=== PATIENT | male | born 1955 | race Caucasian/White ===

== ENCOUNTER 2016-05-26 04:13 | Inpatient (IN) | payer OTHER ==
[~2016-05-26] VITALS: Ht 170.2 cm; Wt 73.3 kg
[2016-05-26 07:06] VITALS: BP 133/83; PULSE 78; RESP 20
[2016-05-26 07:07] VITALS: Ht 170.2 cm; Wt 73.3 kg
[2016-05-26] MEDS ORDERED: ACETAMINOPHEN 650 MG SUPP PR PRN (08:00)
[2016-05-26] MEDS ORDERED: morphine 2 MG INJ IV PRN (08:00)
[2016-05-26 08:15] VITALS: BP 146/84; RESP 18
[2016-05-26] MEDS ORDERED: AMO500 PO (09:24)
[2016-05-26] MEDS ORDERED: NITR-58 PO (09:24)
[2016-05-26] MEDS ORDERED: CLAR500T PO (09:24)
[2016-05-26] MEDS ORDERED: OMEP20CA16 PO (09:26)
--- NOTE | 2016-05-26 12:03 | HP ---
DATE OF ADMISSION: 05/26/2016 REASON FOR ADMISSION: Stomach mass, distended stomach, intractable abdominal pain, rule out metasta tic cancer. The patient has been transferred from the [facility] due to insurance capitati on. HISTORY OF PRESENT ILLNESS: This is a 60-year-old male who has no significant past medical history who presented to the emergency room at [facility] for evaluation of epigastric pain, which has been going on for the past 1 week. The patient notes that it was more to be a discomfort that i s associated with nausea and then he starts to have vomiting. The patient has been complaining of n onbloody, nonbilious vomiting for the past 1 week. He stated that every time he gets nauseas it is f ollowed up by vomiting. The patient denies any constipation, diarrhea, fever, chills. He also is n ot sure about any weight loss. He had his last bowel movement approximately 2 days ago. In the beth ency room at [place], he had an EKG done which was a normal sinus rhythm. The patient had an i nitial workup done including the abdominal ultrasound. The patient had ultrasound of the abdomen do ne which shows no kidney stones or gallstones. There was some steatosis with focal fatty sparing in the left lobe. The patient subsequently had a CT abdomen and pelvis with contrast which was suspic ious for possible periduodenal lymphadenopathy. There was some mass measuring at 2.6 x 3.9 cm. Mul tiple small nodules are present adjacent to the duodenal mass in the aortocaval regions. There was also some mass 2.3 x 2.9 cm lying above the bladder which may be present as a possible metastases. There was a distended stomach and the ____ of the duodenum. The patient got transferred to the [facility] for further care. At the time of my evaluation, he is complaining of abdominal pain, nausea, vomiting. REVIEW OF SYSTEMS: Other review of systems has been obtained and is negative except what is mentione d in the history of present illness. PAST MEDICAL HISTORY: None as per the patient. PAST SURGICAL HISTORY: None as per the patient. ALLERGIES: NO KNOWN DRUG ALLERGIES. SOCIAL HISTORY: The patient is . He has never smoked. He does not have any smokeless tobac co history on file. The patient does not drink alcohol, no recreational drug use. PHYSICAL EXAMINATION: VITAL SIGNS: Temperature 36.7, heart rate 100, respiration 19, blood pressure 162/74, saturation 99 % on room air. GENERAL: Awake, alert, in no distress. HEENT: Normal. Oropharynx clear. NECK: Supple, no JVD, no lymphadenopathy. LUNGS: Clear to auscultation. No crackles, no wheezes. HEART: S1, S2, with regular rhythm, no murmur. ABDOMEN: Soft, tender to palpation in the mid epigastric to mid umbilical area. No rebound, no gua rding. Bowel sounds are present. EXTREMITIES: No clubbing, cyanosis, or edema. NEUROLOGICAL: Nonfocal, intact. PSYCHIATRIC: Appropriate affect and mood. LABORATORY DATA/DIAGNOSTIC IMAGING: The patient had a CT abdomen and pelvis with contrast done at [facility] as follows: 1. Distended stomach as well as the second portion of the duodenum, periduodenal lymphadenopathy wi th the largest confluence mass measures 2.6 x 3.9 cm, multiple additional smaller nodes are present adjacent to the duodenal mass in the aortocaval region. 2. A 2.3 x 2.9 cm mass lying above bladder may be represent a drop metastasis. 3. Ultrasound of the abdomen done which shows no kidney stone or gallstones, steatosis with a focal fatty sparing in the left lobe. 4. The patient had labs done at the [facility] as follows: WBC 12.4, hemoglobin 17.8, hem atocrit 51.1, platelet count 309. Sodium 137, potassium 4.1, chloride 87, bicarbonate 30, BUN 46, cr eatinine 1.03, glucose 140, calcium 10.2, total protein 8.7, albumin 4.5, total bilirubin 1.3, alkal ine phosphatase 137, AST 34, ALT 58. 6. Troponin x1 is negative. 7. Urinalysis is dirty with trace ketones, 100 protein, 6 WBC, 2 urobilinogen, hazy appearance. Li pase is 188. 8. The patient had subsequent labs done at the [facility] as follows. IMPRESSION: This is a 60-year-old male who has been transferred from the [facility] for further workup of a duodenal mass and intractable abdominal pain. 1. Duodenal mass with approximately 2.6 x 3.9 cm size with periduodenal lymphadenopathy concerned a bout malignancy versus a metastatic cancer. 2. Intractable abdominal pain, likely secondary to a duodenal mass. 3. Rule out acute gastritis/stomach cancer. 4. History of distended stomach, likely secondary to possible obstruction from the mass. 5. A 2.3 x 2.9 cm mass above the bladder, which may present a drop metastasis. PLAN: 1. The patient gets admitted to the med/surg floor. I will call GI consult, Dr. De to see. Wi ll continue the patient on morphine for pain control, Reglan IV p.r.n. nausea, vomiting, Tylenol p.r .n. pain. 2. Oncology consult, Dr. Debbie Flores has been called in to see patient. 3. We will also consider a surgical consultation depending on the GI recommendations and the furthe r plan will be decided depending on the patient's course in the hospital. Total time spent in this patient's history and physical, making assessment and plan, using ____ as t he scraper tender, we explained the patient about the plan regarding his cancer workup and IV fluids eduardo ng with the GI consultation and oncology consultations. Total time taken in this patient's evaluatio n and care took more than 90 minutes. Dictated By: SHANAE LEWIS MD, KP/ANN MARIE Conf#: [id number] DID#: [id number]
--- NOTE | 2016-05-26 15:09 | CONS ---
Date/Time of Note Date/Time of Note DATE: 05/26/16 TIME: 15:04 Assessment/Plan Assessment/Plan Chief Complaint/Hosp Course The patient is a 60 year old male who presented to the emergency room at [place] with epigastric pain x 1 week associated with nausea and nonbloody, nonbilious emesis. Abdominal US 05/25/16 showed no kidney stone or gallstone, steatosis with focal fatty sparing in the left side. - CT A/P demonstrated distended stomach as well as the second portion of the duodenum, with suspected mass causing obstruction at the third portion of the duodenum and periduodenal lymphadenopathy with largest confluent mass 2.6 x 3.9 cm and multiple additional smaller nodes adjacent to the duodenal mass, in the aortocaval region as well as along the mesenteric border of the cecum. A 2.3 x 2.9 cm mass lying above the bladder may represent a drop metastasis.. - Agree with GI evaluation - Will check CEA - Will obtain CT chest for staging and repeat CT Abdomen/pelvis to evaluate for possible drop metastasis. Will discuss with radiology once imaging performed to see whether biopsy is indicated. Problems: Consultation Date/Type/Reason Admit Date/Time May 26, 2016 at 06:29 Date of Consultation: May 26, 2016 Type of Consultation: Hematology/Oncology Hx of Present Illness The patient is a 60 year old male who presented to the emergency room at [place] with epigastric pain x 1 week associated with nausea and nonbloody, nonbilious emesis. Abdominal US 05/25/16 showed no kidney stone or gallstone, steatosis with focal fatty sparing in the left side. CT A/P demonstrated distended stomach as well as the second portion of the duodenum, with suspected mass causing obstruction at the third portion of the duodenum and periduodenal lymphadenopathy with largest confluent mass 2.6 x 3.9 cm and multiple additional smaller nodes adjacent to the duodenal mass, in the aortocaval region as well as along the mesenteric border of the cecum. A 2.3 x 2.9 cm mass lying above the bladder may represent a drop metastasis. The patient was transferred to [facility] for further care. The patient states that he had acid reflux pain and vomiting for 1 week, though now stopped. He denies melena or hematochezia, no diarrhea or constipation. He has had 10 pounds of weight loss over the past 2 weeks due to inability to tolerate PO after eating stuffed chilli. He is functional in his ADL's. Past Medical History Medical History: no pertinent history Past Surgical History Past Surgical Hx: no surgical history Family History Significant Family History: no pertinent family hx Social History Smoking Status: Never smoker Exam/Review of Systems Vital Signs Vitals Vital Signs Date Time Temp Pulse Resp B/P Pulse Ox O2 Delivery O2 Flow Rate FiO2 05/26/16 08:15 98.5 78 18 146/84 97 05/26/16 07:06 Room Air Exam Constitutional: alert, oriented Psych: no complaints Head: normocephalic Eyes: nl conjunctiva ENMT: nl external ears & nose Neck: supple Respiratory: clear to auscultation Cardiovascular: regular rate and rhythm Gastrointestinal: non-tender, soft Musculoskeletal: nl extremities to inspection Medications Medications Current Medications Metoclopramide HCl (Reglan) 10 mg Q6H PRN IV NAUSEA AND/OR VOMITING; Start at 08:00 Acetaminophen (Tylenol Supp) 650 mg Q6H PRN [place] PAIN LEVEL 1-3 OR FEVER; Start 05/26/16 at 08:00 Morphine Sulfate (morphine) 2 mg Q4H PRN IV SEVERE PAIN LEVEL 7-10; Start 05/26 at 08:00 Influenza Virus Vaccine (Fluzone) 0.5 ml ONCE ONCE IM* ; Start 05/26/16 at 16:00 ; Stop 05/26/16 at 16:01 TODARBY MD May 26, 2016 15:09
[2016-05-26] MEDS ORDERED: INFLUENZA VIRUS VACCINE 0.5 ML SYG IM* ONE (16:00)
[2016-05-26 19:34] VITALS: BP 120/79; RESP 18
[2016-05-26] MEDS: METOCLOPRAMIDE 10 MG INJ IV PRN (21:24)
[2016-05-26 22:56] LABS: ADD SCAN DIFF NO
[2016-05-26 22:57] LABS: BASOPHILS % 0.2 % (0.0-2.0); EOSINOPHILS % 0.3 % (0.0-7.0); HEMOGLOBIN 16.6 g/dl (14.0-18.0); LYMPHOCYTES # 1.7 10^3/ul (0.8-2.9); LYMPHOCYTES % 16.9 % (15.0-51.0); MEAN CORPUSCULAR HEMOGLOBIN 30.1 pg (29.0-33.0); MEAN CORPUSCULAR HGB CONC 33.9 g/dl (32.0-37.0); MEAN CORPUSCULAR VOLUME 88.9 fl (82.0-101.0); MEAN PLATELET VOLUME 10.5 fl (7.4-10.4); MONOCYTE # 0.9 10^3/ul (0.3-0.9); MONOCYTES % 9.4 % (0.0-11.0); NEUTROPHIL # 7.2 10^3/ul (1.6-7.5); NEUTROPHILS % 72.8 % (39.0-77.0); PLATELET COUNT 295 10^3/UL (140-415); RED BLOOD COUNT 5.51 10^6/ul (4.70-6.10); RED CELL DISTRIBUTION WIDTH 12.8 % (11.5-14.5); WHITE BLOOD COUNT 9.9 10^3/ul (4.8-10.8)
[2016-05-26 23:06] LABS: POTASSIUM 4.6 mmol/L (3.5-5.1)
[2016-05-26 23:09] LABS: CALCIUM 9.7 mg/dl (8.4-10.2); CREATININE 0.92 mg/dl (0.61-1.24)
[2016-05-27] VITALS (10 sets, daily range): BP systolic 116–143; BP diastolic 79–100; PULSE 80–90; RESP 15–20
[2016-05-27] MEDS: METOCLOPRAMIDE 10 MG INJ IV PRN (04:51)
--- NOTE | 2016-05-27 07:34 | CONS ---
Date/Time of Note Date/Time of Note DATE: 05/26/16 TIME: 17:31 Assessment/Plan Assessment/Plan Chief Complaint/Hosp Course 1. Duodenal mass with lymphadenopathy and duodenal outlet obstruction -GI for EGD and bx -Oncology 2. Nausea/vomiting secondary to outlet obstruction as above -npo -ngt 3. Steatosis -Eventual nutrition and lifestyle optimization 4. Weight loss probably secondary to above -As above Thank you very much for consulting me in this patient's care, Problems: Consultation Date/Type/Reason Admit Date/Time May 26, 2016 at 06:29 Date of Consultation: May 26, 2016 Type of Consultation: Gen Surgical Reason for Consultation Duodenal mass and lymphadenopathy Referring Provider: SHANAE LEWIS MD Hx of Present Illness Scot Paz is a 60yo male who has no significant past medical history who presented to the emergency room at [facility] for evaluation of epigastric pain, which has been going on for the past 1 week. The patient notes that it was more to be a discomfort that is associated with nausea and then he starts to have vomiting. The patient has been complaining of nonbloody , nonbilious vomiting for the past 1 week. Denies any constipation, diarrhea, fever, chills. Reports 10 pound weight loss. He had his last bowel movement approximately 2 days ago. Abdominal ultrasound identified steatosis with focal fatty sparing in the left lobe. CT abdomen and pelvis with contrast identified possible periduodenal lymphadenopathy. There was some mass measuring at 2.6 x 3.9 cm. Multiple small nodules are present adjacent to the duodenal mass in the aortocaval regions. There was also some mass 2.3 x 2.9 cm lying above the bladder which may be present as a possible metastases. There was a distended stomach and duodenum. Patient was transferred here for insurance capitation. Surgical consult is obtained further evaluation and treatment. Constitutional: poor po, No chills, No diaphoresis Eyes: No discharge, No redness ENT: No congestion, No dysphagia Respiratory: No cough, No shortness of breath Cardiovascular: No chest pain, No edema, No palpitations Gastrointestinal: flatus, nausea, vomiting, No diarrhea Genitourinary: No bleeding, No dysuria, No flank pain Musculoskeletal: No back pain, No bone/joint pain Skin: No bruising, No erythema, No pruritis, No rash Neurologic: No confusion, No headache, No syncope Endocrine: No polydypsia, No polyuria Lymphatic: No adenopathy Psychological: nl mood/affect, no complaints, No anxiety Immunologic: No pruritis, No rhinitis Past Medical History Fatty liver Abdominal pain Nausea vomiting Duodenal mass with lymphadenopathy Pelvic mass Past Surgical History Past Surgical Hx: no surgical history Family History Significant Family History: no pertinent family hx Social History Alcohol Use: none Smoking Status: Never smoker Drug Use: none Exam/Review of Systems Vital Signs Vitals Vital Signs Date Time Temp Pulse Resp B/P Pulse Ox O2 Delivery O2 Flow Rate FiO2 05/26/16 20:00 Room Air 05/26/16 19:34 98.9 69 18 120/79 98 Intake and Output 05/26/16 05/26/16 05/27/16 15:00 23:00 07:00 Intake Total 0 ml Output Total 700 ml 850 ml Balance -700 ml -850 ml Exam Constitutional: alert, oriented, No distress Psych: nl mood/affect, No anxiety, No confusion Head: atraumatic, normocephalic Eyes: EOMI, PERRL, nl conjunctiva, No icteric ENMT: mucosa pink and moist, nl external ears & nose, nl lips & teeth Neck: non-tender, supple, No jvd, No masses Respiratory: normal air movement, No congested cough, No labored breathing Cardiovascular: regular rate and rhythm, No edema Gastrointestinal: non-tender, soft, No distended, No rebound or guarding Genitourinary - Male: nl scrotum Musculoskeletal: nl extremities to inspection, nl gait and stance, No joint tenderness Extremities: normal pulses, No calf tenderness, No cyanosis Neurological: nl mental status, nl speech, nl strength Skin: nl turgor, No diaphoresis, No rash or lesions Lymph: No nl lymph nodes (Inguinal) Results Result Diagram: 05/26/16221805/26/162218 Results 24 hrs Laboratory Tests Test 05/26/16 22:19 05/27/16 05:05 White Blood Count 9.9 Red Blood Count 5.51 Hemoglobin 16.6 Hematocrit 49.0 Mean Corpuscular Volume 88.9 Mean Corpuscular Hemoglobin 30.1 Mean Corpuscular Hemoglobin Concent 33.9 Red Cell Distribution Width 12.8 Platelet Count 295 Mean Platelet Volume 10.5 H Neutrophils % 72.8 Lymphocytes % 16.9 Monocytes % 9.4 Eosinophils % 0.3 Basophils % 0.2 Nucleated Red Blood Cells % 0.0 Neutrophils # 7.2 Lymphocytes # 1.7 Monocytes # 0.9 Eosinophils # 0.0 Basophils # 0.0 Nucleated Red Blood Cells # 0.0 Sodium Level 139 Potassium Level 4.6 Chloride Level 93 L Carbon Dioxide Level 32 H Anion Gap 19 H Blood Urea Nitrogen 42 H Creatinine 0.92 Glucose Level 114 Calcium Level 9.7 Carcinoembryonic Antigen 13.1 H Medications Medications Current Medications Metoclopramide HCl (Reglan) 10 mg Q6H PRN IV NAUSEA AND/OR VOMITING Last administered on 05/27/16 04:51; Admin Dose 10 MG; Start 05/26/16 at 08:00 Acetaminophen (Tylenol Supp) 650 mg Q6H PRN [place] PAIN LEVEL 1-3 OR FEVER; Start 05/26/16 at 08:00 Morphine Sulfate (morphine) 2 mg Q4H PRN IV SEVERE PAIN LEVEL 7-10; Start 05/26 at 08:00 DIAMOND FITZGERALD MD May 27, 2016 07:34
[2016-05-27] MEDS ORDERED: ETOMIDATE 20 MG INJ ONE (11:57)
[2016-05-27] MEDS ORDERED: PROPOFOL 60 ML ONE (11:57)
[2016-05-27] MEDS ORDERED: LIDOCAINE 2% (SDV) 5 ML INJ ONE (11:57)
[2016-05-27] MEDS ORDERED: SUCCINYLCHOLINE CHLORIDE 100 MG/5 ML SYG IV ONE (11:57)
[2016-05-27] MEDS ORDERED: MIDAZOLAM 1 MG/ML 2 ML INJ ONE ×2 (11:58→14:10)
--- NOTE | 2016-05-27 12:26 | PN ---
Date/Time of Note Date/Time of Note DATE: 05/27/16 TIME: 12:24 Assessment/Plan VTE Prophylaxis VTE Prophylaxis Intervention: SCD's Lines/Catheters IV [facility]ter [facility]from [facility]ine Lock Urinary Cath still in place: No Assessment/Plan Assessment/Plan 1. Duodenal mass with approximately 2.6 x 3.9 cm size with periduodenal lymphadenopathy concerned about malignancy versus a metastatic cancer. 2. Intractable abdominal pain, likely secondary to a duodenal mass. 3. Rule out acute gastritis/stomach cancer. 4. History of distended stomach, likely secondary to possible obstruction from the mass. 5. A 2.3 x 2.9 cm mass above the bladder, which may present a drop metastasis. PLAN: IVF D51/2 NS GI planning for EGD [place] and General surgery consulted on the case will follow up Subjective 24 Hr Interval Summary Free Text/Dictation Plan for EGD, pain controlled Exam/Review of Systems Vital Signs Vitals Vital Signs Date Time Temp Pulse Resp B/P Pulse Ox O2 Delivery O2 Flow Rate FiO2 05/27/16 07:00 97.5 85 20 142/93 96 05/26/16 20:00 Room Air Intake and Output 05/26/16 05/26/16 05/27/16 15:00 23:00 07:00 Intake Total 0 ml Output Total 700 ml 850 ml Balance -700 ml -850 ml Exam GENERAL: Awake, alert, in no distress. HEENT: Normal. Oropharynx clear. NECK: Supple, no JVD, no lymphadenopathy. LUNGS: Clear to auscultation. No crackles, no wheezes. HEART: S1, S2, with regular rhythm, no murmur. ABDOMEN: Soft, tender to palpation in the mid epigastric to mid umbilical area. No rebound, no guarding. Bowel sounds are present. EXTREMITIES: No clubbing, cyanosis, or edema. NEUROLOGICAL: Nonfocal, intact. PSYCHIATRIC: Appropriate affect and mood. Results Result Diagram: 05/26/16221805/26/162218 Results 24 hrs Laboratory Tests Test 05/26/16 22:19 05/27/16 05:05 White Blood Count 9.9 Red Blood Count 5.51 Hemoglobin 16.6 Hematocrit 49.0 Mean Corpuscular Volume 88.9 Mean Corpuscular Hemoglobin 30.1 Mean Corpuscular Hemoglobin Concent 33.9 Red Cell Distribution Width 12.8 Platelet Count 295 Mean Platelet Volume 10.5 H Neutrophils % 72.8 Lymphocytes % 16.9 Monocytes % 9.4 Eosinophils % 0.3 Basophils % 0.2 Nucleated Red Blood Cells % 0.0 Neutrophils # 7.2 Lymphocytes # 1.7 Monocytes # 0.9 Eosinophils # 0.0 Basophils # 0.0 Nucleated Red Blood Cells # 0.0 Sodium Level 139 Potassium Level 4.6 Chloride Level 93 L Carbon Dioxide Level 32 H Anion Gap 19 H Blood Urea Nitrogen 42 H Creatinine 0.92 Glucose Level 114 Calcium Level 9.7 Carcinoembryonic Antigen 13.1 H Medications Medications Current Medications Metoclopramide HCl (Reglan) 10 mg Q6H PRN IV NAUSEA AND/OR VOMITING Last administered on 05/27/16 04:51; Admin Dose 10 MG; Start 05/26/16 at 08:00 Acetaminophen (Tylenol Supp) 650 mg Q6H PRN [place] PAIN LEVEL 1-3 OR FEVER; Start 05/26/16 at 08:00 Morphine Sulfate (morphine) 2 mg Q4H PRN IV SEVERE PAIN LEVEL 7-10; Start 05/26 at 08:00 SHANAE LEWIS MD May 27, 2016 12:26
[2016-05-27] MEDS: DEXTROSE 5%-0.45% NACL 1,000 ML IV SCH ×2 (12:30→14:35)
--- NOTE | 2016-05-27 13:39 | CONS ---
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 This is a 60-year-old gentleman who was originally at the [facility] complaining of a bdominal pain, nausea and vomiting of 1 weeks duration, and also he lost 10 pounds. No chest pain, no shortness of breath, no fever, no chills, no or [employer]LE[employer] problems. The patient was worked up at [facility] ER. CAT scan was done which showed gastric outlet obstruction, so for insurance purpose s the patient was transferred to [facility]. REVIEW OF SYSTEMS: Otherwise negative. PAST MEDICAL HISTORY: Nothing significant. SURGICAL HISTORY: Nothing significant. ALLERGIES: NONE. SOCIAL HISTORY: . Does not smoke or drink. PHYSICAL EXAMINATION: VITALS: Stable. HEENT: Unremarkable. NECK: Supple. No thyromegaly, no lymphadenopathy. CARDIOVASCULAR: No murmur, gallop or click. LUNGS: Clear. ABDOMEN: Benign. EXTREMITIES: No edema. CENTRAL NERVOUS SYSTEM: Grossly within normal limits. IMPRESSION: 1. 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 2. Lymphadenopathy. 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 PLAN: To keep the patient n.p.o. We will proceed with an EGD in the a.m. If the EGD biopsy comes back negative or the tumor is not accessible, then we will proceed with a lymph node biopsy. Dictated By: TIANNA WILSON/ANN MARIE Conf#: [id number] DID#: [id number] CC: SHANAE LEWIS MD;*EndCC*
[2016-05-27] MEDS ORDERED: hydrALAzine 20 MG INJ IV PRN (14:00)
[2016-05-27] MEDS ORDERED: OXYCODONE/ACETAMINOPHEN (5/325) TAB PO PRN ×2 (14:00)
[2016-05-27] MEDS ORDERED: TRIMETHOBENZAMIDE 100 MG/ML VIAL IM PRN (14:00)
[2016-05-27] MEDS ORDERED: EPHEDrine SULFATE 50 MG/5 ML SYG IV PRN (14:00)
[2016-05-27] MEDS ORDERED: PROCHLORPERAZINE 10 MG INJ IV PRN (14:00)
[2016-05-27] MEDS ORDERED: morphine (1 MG/ML) 10ML SYRINGE IV PRN ×3 (14:00)
[2016-05-27] MEDS ORDERED: METOCLOPRAMIDE 10 MG INJ IV PRN (14:00)
[2016-05-27] MEDS ORDERED: DIPHENHYDRAMINE 50 MG INJ IV PRN (14:00)
[2016-05-27] MEDS ORDERED: ONDANSETRON 4 MG INJ IV PRN (14:00)
--- NOTE | 2016-05-27 14:22 | CONS ---
Date/Time of Note Date/Time of Note DATE: 05/27/16 TIME: 14:21 Assessment/Plan Assessment/Plan Chief Complaint/Hosp Course The patient is a 60 year old male who presented to the emergency room at [facility] with epigastric pain x 1 week associated with nausea and nonbloody, nonbilious emesis. Abdominal US 05/25/16 showed no kidney stone or gallstone, steatosis with focal fatty sparing in the left side. - CT A/P demonstrated distended stomach as well as the second portion of the duodenum, with suspected mass causing obstruction at the third portion of the duodenum and periduodenal lymphadenopathy with largest confluent mass 2.6 x 3.9 cm and multiple additional smaller nodes adjacent to the duodenal mass, in the aortocaval region as well as along the mesenteric border of the cecum. A 2.3 x 2.9 cm mass lying above the bladder may represent a drop metastasis.. - Agree with GI evaluation. Plan for EGD per GI. If the EGD biopsy comes back negative or the tumor is not accessible, then we will proceed with a lymph node biopsy. - CEA elevated at 13.1 - Will obtain CT chest for staging and repeat CT Abdomen/pelvis to evaluate for possible drop metastasis. Will discuss with radiology once imaging performed to see whether biopsy is indicated. Problems: Consultation Date/Type/Reason Admit Date/Time May 26, 2016 at 06:29 Initial Consult Date 05/26/16 Type of Consultation: Hematology/Oncology Referring Provider: SHANAE LEWIS MD 24 HR Interval Summary Free Text/Dictation Patient doing well, denies complaints. Exam/Review of Systems Vital Signs Vitals Vital Signs Date Time Temp Pulse Resp B/P Pulse Ox O2 Delivery O2 Flow Rate FiO2 05/27/16 14:02 80 17 141/91 96 Room Air 05/27/16 13:27 97.8 2.0 Intake and Output 05/26/16 05/26/16 05/27/16 15:00 23:00 07:00 Intake Total 0 ml Output Total 700 ml 850 ml Balance -700 ml -850 ml Exam Constitutional: alert, oriented Psych: no complaints Head: normocephalic Eyes: nl conjunctiva ENMT: nl external ears & nose Neck: supple Respiratory: clear to auscultation Cardiovascular: regular rate and rhythm Gastrointestinal: non-tender, soft Musculoskeletal: nl extremities to inspection Results Result Diagram: 05/26/16 2219 05/26/16 2219 Results 24 hrs Laboratory Tests Test 05/26/16 22:19 05/27/16 05:05 White Blood Count 9.9 Red Blood Count 5.51 Hemoglobin 16.6 Hematocrit 49.0 Mean Corpuscular Volume 88.9 Mean Corpuscular Hemoglobin 30.1 Mean Corpuscular Hemoglobin Concent 33.9 Red Cell Distribution Width 12.8 Platelet Count 295 Mean Platelet Volume 10.5 H Neutrophils % 72.8 Lymphocytes % 16.9 Monocytes % 9.4 Eosinophils % 0.3 Basophils % 0.2 Nucleated Red Blood Cells % 0.0 Neutrophils # 7.2 Lymphocytes # 1.7 Monocytes # 0.9 Eosinophils # 0.0 Basophils # 0.0 Nucleated Red Blood Cells # 0.0 Sodium Level 139 Potassium Level 4.6 Chloride Level 93 L Carbon Dioxide Level 32 H Anion Gap 19 H Blood Urea Nitrogen 42 H Creatinine 0.92 Glucose Level 114 Calcium Level 9.7 Carcinoembryonic Antigen 13.1 H Medications Medications Current Medications Metoclopramide HCl (Reglan) 10 mg Q6H PRN IV NAUSEA AND/OR VOMITING Last administered on 05/27/16t 04:51; Admin Dose 10 MG; Start 05/26/16 at 08:00 Acetaminophen (Tylenol Supp) 650 mg Q6H PRN [place] PAIN LEVEL 1-3 OR FEVER; Start 05/26/16 at 08:00 Morphine Sulfate 2 mg 2 mg Q4H PRN IV SEVERE PAIN LEVEL 7-10; Start 05/26/16 at 08:00 Dextrose/Sodium Chloride (D5-1/2ns) 1,000 ml @ 75 mls/hr [id number] IV ; Start at 12:30 DARBY KNOWLES MD May 27, 2016 14:22
[2016-05-27] MEDS ORDERED: SOD CHLORIDE 0.9% 100 ML ONE (16:59)
[2016-05-27] MEDS ORDERED: IODIXANOL LOCM 100 ML BTL ONE (16:59)
--- NOTE | 2016-05-27 18:05 | RADRPT ---
PROCEDURE: CT scan of the chest, abdomen and pelvis with IV contrast. CLINICAL INDICATION: History of stomach mass and epigastric pain. Evaluate for metastasis. TECHNIQUE: Thin section axial, coronal and sagittal images were performed through the abdomen and pelvis without contrast and then following the injection of 99 cc of Visipaque 320 utilizing a light speed CalAmp electric scanner. Low-dose protocol imaging was utilized. One or more of the following dose reduction techniques were used: - Automated exposure control. - Adjustment of the mA and/or kV according to patient size. Use of iterative reconstruction technique. Radiation Dose: CTDI: 12.6 and DLP: 935 COMPARISON: No. FINDINGS: CT Chest: The trachea and thyroid gland are normal. The great vessels of the superior mediastinum are unremarkable. There are vascular calcifications in the aortic arch. The main pulmonary artery and pulmonary artery outflow tracts are normal. The heart is normal in size. No pericardial effusion is identified. The pulmonary vasculature and lung thomas are normal. No acute infiltrate is identified. No pulmon lakisha metastasis is identified. The esophagus is normal. No enlarged mediastinal or hilar lymph node s are identified. There is a calcified mediastinal lymph node ventral to the valdo. The calcified lymph node inferior to the valdo. CT Abdomen and pelvis : Liver measured 17.1 cm AP. There is fatty infiltration of the liver. The hepatic and portal veins are patent. No hepatic mass is identified. There is focal dilatation of the hepatic duct in the med ial segment of the left lobe of the liver. Series 3; image 100. The right and left kidneys are normal. There is no evidence of a solid mass or hydronephrosis. The urinary bladder is normal. The adrenal glands are normal. There is no evidence of a hiatal hernia. There is an air-fluid level in the stomach which is disten ded. Asymmetric thickening of the cardia of the stomach is noted. There is fluid in the second por tion of the duodenum. There is diffuse mucosal thickening at the junction between the second and th ird portions of the duodenum with a caliber change noted in the mid third portion of the duodenum. The more distal small bowel loops are normal in caliber. There is a infiltrative mass in the cecum and ascending colon with extension views the serosa. There are abnormal lymph nodes medial to the ascending colon. The largest lymph node measured up to 1.2 c m. There is some matting of the adjacent small bowel loops medial to the ascending colon which may be the result of carcinomatosis. There are bilateral inguinal hernias. The left is larger than right. No enlarged inguinal,, a pelvic sidewall or periportal lymph node is identified. There is an 9.2 mm lymph node dorsal to the head the pancreas. There is an adjacent 8.1 mm lymph node near the head o f the pancreas. A 1.2 cm periaortic lymph node is identified inferior to the superior mesenteric ar felisha. There are additional smaller lymph nodes in this area. The pancreas is unremarkable. The extrahepatic common bile duct is normal. The innominate bone is intact. The sacrum and SI joints are unremarkable. There are degenerative o steophytes in the thoracic and lumbosacral spine. No bone metastasis is noted. The seminal vesicles are normal. The prostate gland is enlarged. IMPRESSION: 1. There is a infiltrative submucosal mass roughly 3.2 cm in length by 3.2 cm transverse involving the proximal third portion of the duodenum resulting in a partial obstruction of the stomach and pr oximal duodenum. Lymphoma or other duodenal cancer might present this fashion. There is thickening o f the mucosa in the cardia of the stomach of unknown significance. Endoscopy may be helpful in eval uation. 2. There is an infiltrative mass involving the cecum and ascending colon extending beyond the serosa into the adjacent mesentery with abnormal mesenteric lymph nodes medial to the ascending colon. Th vince measure up to 1.2 cm. Additional abnormal retroperitoneal lymph nodes are noted as described abo ve. 3. There is matting of small bowel loops medial to the ascending colon which are suspicious for car cinomatosis. 4. There are bilateral inguinal hernias, the left larger than the right. 5. Enlarged prostate gland. 6. Spondylosis of the thoracic and lumbosacral spine. 7. There are calcified mediastinal lymph nodes in the chest as described. Otherwise, negative CT s can of the chest. RPTAT:AAJJ Physician Sudhir Date Time Electronically viewed and signed by Physician Sudhir on 05/27/2016 18:05 /
--- NOTE | 2016-05-27 20:10 | PN ---
Date/Time of Note Date/Time of Note DATE: 05/27/16 TIME: 20:09 Assessment/Plan Lines/Catheters IV Catheter Type (from [facility] Peripheral IV Langley in Place (from [facility]): No Assessment/Plan Chief Complaint/Hosp Course 1. 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 Nausea/vomiting secondary to outlet obstruction as above -npo -ngt 3. Steatosis -Eventual nutrition and lifestyle optimization 4. Weight loss probably secondary to above -As above Thank you, Problems: Subjective 24 Hr Interval Summary EGD planned by GI. No fevers or chills. No chest pain or shortness of breath. No further nausea. No vomiting. No cough. No seizure. No headache, visual , or neurologic changes. No dysuria. Exam/Review of Systems Vital Signs Vitals Vital Signs Date Time Temp Pulse Resp B/P Pulse Ox O2 Delivery O2 Flow Rate FiO2 05/27/16 19:38 98.2 76 16 130/79 98 05/27/16 14:02 Room Air 05/27/16 13:27 2.0 Intake and Output 05/26/16 05/26/16 05/27/16 15:00 23:00 07:00 Intake Total 0 ml Output Total 700 ml 850 ml Balance -700 ml -850 ml Exam Free Text/Dictation Constitutional: alert, oriented, No distress Psych: nl mood/affect, No anxiety, No confusion Head: atraumatic, normocephalic Eyes: EOMI, PERRL, nl conjunctiva, No icteric ENMT: mucosa pink and moist, nl external ears & nose, nl lips & teeth Neck: non-tender, supple, No jvd, No masses Respiratory: normal air movement, No congested cough, No labored breathing Cardiovascular: regular rate and rhythm, No edema Gastrointestinal: non-tender, soft, No distended, No rebound or guarding Genitourinary - Male: nl scrotum Musculoskeletal: nl extremities to inspection, nl gait and stance, No joint tenderness Extremities: normal pulses, No calf tenderness, No cyanosis Neurological: nl mental status, nl speech, nl strength Skin: nl turgor, No diaphoresis, No rash or lesions Lymph: No nl lymph nodes (Inguinal) Results Result Diagram: 05/26/16221805/26/162218 DIAMOND FITZGERALD MD 24, 2017 20:10
[2016-05-28] MEDS: DEXTROSE 5%-0.45% NACL 1,000 ML IV SCH ×4 (01:50→17:19)
[2016-05-28 07:46] VITALS: BP 134/89; RESP 18
[2016-05-28] MEDS: METOCLOPRAMIDE 10 MG INJ IV PRN ×2 (07:53→19:55)
--- NOTE | 2016-05-28 11:10 | CONS ---
Date/Time of Note Date/Time of Note DATE: 05/28/16 TIME: 11:07 Assessment/Plan Assessment/Plan Additional Assessment/Plan IMPRESSION: 1. 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 2. Lymphadenopathy. 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 4. mass caecum extending in to ascending colon 5. CEA 13.1 Plan review biopsy result,if negative then lymph node biopsy or caecal mass biopsy TPN in the interim Consultation Date/Type/Reason Admit Date/Time May 26, 2016 at 06:29 Initial Consult Date 05/26/16 Type of Consultation: Hematology/Oncology Referring Provider: SHANAE LEWIS MD 24 HR Interval Summary Constitutional: no complaints Exam/Review of Systems Vital Signs Vitals Vital Signs Date Time Temp Pulse Resp B/P Pulse Ox O2 Delivery O2 Flow Rate FiO2 05/28/16 07:46 97.7 77 18 134/89 97 05/27/16 20:00 Room Air 05/27/16 13:27 2.0 Intake and Output 05/27/16 05/27/16 05/28/16 15:00 23:00 07:00 Intake Total 100 ml 150 ml 910 ml Output Total 600 ml 350 ml Balance 100 ml -450 ml 560 ml Exam Constitutional: alert, oriented, well developed Psych: nl mood/affect, no complaints Head: atraumatic, normocephalic Eyes: EOMI, PERRL, nl conjunctiva, nl lids, nl sclera ENMT: nl external ears & nose, nl lips & teeth, nl nasal mucosa & septum Neck: non-tender, supple Respiratory: clear to auscultation, normal air movement Cardiovascular: nl pulses, regular rate and rhythm Gastrointestinal: nl liver, spleen, non-tender, soft Musculoskeletal: nl extremities to inspection, nl gait and stance Extremities: normal pulses Neurological: [employer] II-XII intact, nl mental status, nl speech, nl strength Skin: nl turgor, No rash or lesions Lymph: nl lymph nodes Results Result Diagram: 05/26/169 05/26/162218 Medications Medications Current Medications Metoclopramide HCl (Reglan) 10 mg Q6H PRN IV NAUSEA AND/OR VOMITING Last administered on 05/28/16t 07:53; Admin Dose 10 MG; Start 05/26/16 at 08:00 Acetaminophen (Tylenol Supp) 650 mg Q6H PRN [place] PAIN LEVEL 1-3 OR FEVER; Start 05/26/16 at 08:00 Morphine Sulfate 2 mg 2 mg Q4H PRN IV SEVERE PAIN LEVEL 7-10; Start 05/26/16 at 08:00 Dextrose/Sodium Chloride (D5-1/2ns) 1,000 ml @ 75 mls/hr [id number] IV Last administered on 05/28/16 04:24; Admin Dose 75 MLS/HR; Start 05/27/16 at 12:30 TIANNA SALINAS MD May 28, 2016 11:10
--- NOTE | 2016-05-28 12:03 | PN ---
Date/Time of Note Date/Time of Note DATE: 05/28/16 TIME: 12:00 Assessment/Plan VTE Prophylaxis VTE Prophylaxis Intervention: anti-embolic stocking Lines/Catheters IV Catheter Type (from [facility]): Peripheral IV Urinary Cath still in place: No Assessment/Plan Assessment/Plan 60 year old male who presented to the emergency room at [facility] [place] with epigastric pain x 1 week associated with nausea and nonbloody, nonbilious emesis. -Abdominal US 05/25/16 showed no kidney stone or gallstone, steatosis with focal fatty sparing in the left side. - CT A/P demonstrated distended stomach as well as the second portion of the duodenum, with suspected mass causing obstruction at the third portion of the duodenum and periduodenal lymphadenopathy with largest confluent mass 2.6 x 3.9 cm and multiple additional smaller nodes adjacent to the duodenal mass, in the aortocaval region as well as along the mesenteric border of the cecum. A 2.3 x 2.9 cm mass lying above the bladder may represent a drop metastasis. concern for lymphoma and now s/p egd and if biopsy confirms malignancy then rx recommendations will be discussed. - s/p EGD per GI. If the EGD biopsy comes back negative or the tumor is not accessible, then we will proceed with a lymph node biopsy. - CEA elevated at 13.1 - CT Abdomen/pelvis with also findings of infiltrative mass in cecum. Subjective 24 Hr Interval Summary Constitutional: no complaints Gastrointestinal: pain Musculoskeletal: no complaints Exam/Review of Systems Vital Signs Vitals Vital Signs Date Time Temp Pulse Resp B/P Pulse Ox O2 Delivery O2 Flow Rate FiO2 05/28/16 07:46 97.7 77 18 134/89 97 05/27/16 20:00 Room Air 05/27/16 13:27 2.0 Intake and Output 05/27/16 05/27/16 05/28/16 15:00 23:00 07:00 Intake Total 100 ml 150 ml 910 ml Output Total 600 ml 350 ml Balance 100 ml -450 ml 560 ml Exam Constitutional: oriented Eyes: nl conjunctiva Neck: supple Respiratory: normal air movement Results Result Diagram: 05/26/16221805/26/162218 Medications Medications Current Medications Metoclopramide HCl (Reglan) 10 mg Q6H PRN IV NAUSEA AND/OR VOMITING Last administered on 05/28/16t 07:53; Admin Dose 10 MG; Start 05/26/16 at 08:00 Acetaminophen (Tylenol Supp) 650 mg Q6H PRN [place] PAIN LEVEL 1-3 OR FEVER; Start 05/26/16 at 08:00 Morphine Sulfate 2 mg 2 mg Q4H PRN IV SEVERE PAIN LEVEL 7-10; Start 05/26/16 at 08:00 Dextrose/Sodium Chloride (D5-1/2ns) 1,000 ml @ 75 mls/hr [id number] IV Last administered on 05/28/16 04:24; Admin Dose 75 MLS/HR; Start 05/27/16 at 12:30 DIAMOND ALY MD May 28, 2016 12:03
--- NOTE | 2016-05-28 13:26 | PN ---
Date/Time of Note Date/Time of Note DATE: 05/28/16 TIME: 13:24 Assessment/Plan VTE Prophylaxis VTE Prophylaxis Intervention: SCD's Lines/Catheters IV Catheter Type (from [facility]): Peripheral IV Urinary Cath still in place: No Assessment/Plan Assessment/Plan 1. 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 2. Intractable abdominal pain, likely secondary to a duodenal mass. 3. Rule out acute gastritis/stomach cancer. 4. History of distended stomach, likely secondary to possible obstruction from the mass. 5. A 2.3 x 2.9 cm mass above the bladder, which may present a drop metastasis. 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 [place] [facility] surgery consulted on the case will follow up Subjective 24 Hr Interval Summary Free Text/Dictation s/p EGD showed Gastric outlet obstruction secondary to tumor invading the third part of the duodenum., c/o abdominal pain Exam/Review of Systems Vital Signs Vitals Vital Signs Date Time Temp Pulse Resp B/P Pulse Ox O2 Delivery O2 Flow Rate FiO2 05/28/16 07:46 97.7 77 18 134/89 97 05/27/16 20:00 Room Air 05/27/16 13:27 2.0 Intake and Output 05/27/16 05/27/16 05/28/16 15:00 23:00 07:00 Intake Total 100 ml 150 ml 910 ml Output Total 600 ml 350 ml Balance 100 ml -450 ml 560 ml Exam GENERAL: Awake, alert, in no distress. HEENT: Normal. Oropharynx clear. NECK: Supple, no JVD, no lymphadenopathy. LUNGS: Clear to auscultation. No crackles, no wheezes. HEART: S1, S2, with regular rhythm, no murmur. ABDOMEN: Soft, tender to palpation in the mid epigastric to mid umbilical area. No rebound, no guarding. Bowel sounds are present. EXTREMITIES: No clubbing, cyanosis, or edema. NEUROLOGICAL: Nonfocal, intact. PSYCHIATRIC: Appropriate affect and mood. Results Result Diagram: 05/26/16221805/26/162218 Medications Medications Current Medications Metoclopramide HCl (Reglan) 10 mg Q6H PRN IV NAUSEA AND/OR VOMITING Last administered on 05/28/16 07:53; Admin Dose 10 MG; Start 05/26/16 at 08:00 Acetaminophen (Tylenol Supp) 650 mg Q6H PRN [place] PAIN LEVEL 1-3 OR FEVER; Start 05/26/16 at 08:00 Morphine Sulfate 2 mg 2 mg Q4H PRN IV SEVERE PAIN LEVEL 7-10; Start 05/26/16 at 08:00 Dextrose/Sodium Chloride (D5-1/2ns) 1,000 ml @ 75 mls/hr [id number] IV Last administered on 05/28/16 04:24; Admin Dose 75 MLS/HR; Start 05/27/16 at 12:30 SHANAE LEWIS MD May 28, 2016 13:26
--- NOTE | 2016-05-28 15:07 | PN ---
Date/Time of Note Date/Time of Note DATE: 05/28/16 TIME: 15:04 Assessment/Plan Lines/Catheters IV Catheter Type (from [facility]): Peripheral IV Langley in Place (from [facility]): No Assessment/Plan Chief Complaint/Hosp Course 1. Duodenal mass with lymphadenopathy with narrowing. -await pathology -consider UGI and possible stenting of duodenum -Oncology f/u -consulted HBS 2. Nausea/vomiting secondary to ? outlet obstruction as above -npo -as above 3. Steatosis -Eventual nutrition and lifestyle optimization 4. Weight loss probably secondary to above -As above Thank you, Problems: Subjective 24 Hr Interval Summary s/p EGD with tumor in 3rd portion of duodenum with narrowing. No fevers or chills. No chest pain or shortness of breath. No further nausea. No vomiting. No cough. No seizure. No headache, visual, or neurologic changes. No dysuria. Exam/Review of Systems Vital Signs Vitals Vital Signs Date Time Temp Pulse Resp B/P Pulse Ox O2 Delivery O2 Flow Rate FiO2 05/28/16 07:46 97.7 77 18 134/89 97 05/27/16 20:00 Room Air 05/27/16 13:27 2.0 Intake and Output 05/27/16 05/27/16 05/28/16 15:00 23:00 07:00 Intake Total 100 ml 150 ml 910 ml Output Total 600 ml 350 ml Balance 100 ml -450 ml 560 ml Exam Free Text/Dictation Constitutional: alert, oriented, No distress Psych: nl mood/affect, No anxiety, No confusion Head: atraumatic, normocephalic Eyes: EOMI, PERRL, nl conjunctiva, No icteric ENMT: mucosa pink and moist, nl external ears & nose, nl lips & teeth Neck: non-tender, supple, No jvd, No masses Respiratory: normal air movement, No congested cough, No labored breathing Cardiovascular: regular rate and rhythm, No edema Gastrointestinal: non-tender, soft, No distended, No rebound or guarding Genitourinary - Male: nl scrotum Musculoskeletal: nl extremities to inspection, nl gait and stance, No joint tenderness Extremities: normal pulses, No calf tenderness, No cyanosis Neurological: nl mental status, nl speech, nl strength Skin: nl turgor, No diaphoresis, No rash or lesions Lymph: No nl lymph nodes (Inguinal) Results Result Diagram: 05/26/16221805/26/16 2219 DIAMOND FITZGERALD MD May 28, 2016 15:07
--- NOTE | 2016-05-28 17:54 | CONS ---
[facility] INITIAL INPATIENT CONSULTATION NOTE DATE OF CONSULTATION: 05/28/2016 PL[address] OF SERVICE: [facility], 6th floor. ASSESSMENT AND PLAN: A very pleasant but unfortunate 60-year-old gentleman with only known comorbidity of a BMI of 25.3, presenting with what appears to be a duodenal mass with possible metastatic disease to ascending colon as well as presence of lymphadenopathy and mass in the pelvis. This is certainly suspicious for malignancy. Lymphoma is in the differential and for this reason , a biopsy is crucial. I believe that endoscopic biopsy has been done and it is still pending. The patient should also have a colonoscopy and we should also consider possibly performing percutaneous biopsy if needed to clarify the diagnosis. Once the diagnosis has been clarified, then the treatment would certainly involve systemic chemotherapy. Currently, I do not see an indication for acute surgical intervention, and if possible and if needed, endoscopic stenting should be considered in this setting, although the third portion and fourth portion of duodenum are the main involved areas and this would be somewhat difficult to stent. Certainly, palliative surgical intervention can be done; however, this would not allow the patient to receive possibly life- sustaining systemic chemotherapy for a number of months and it may worsen his prognosis. Overall, the prognosis is grim regardless of available treatment options, but we certainly have to do our due diligence to establish a diagnosis and to offer the patient a multidisciplinary treatment. I explained all this in detail with the patient and his and answered all their questions to the best of my ability. I believe that the patient and his appear to understand and agree with the plans. With above assessment, I have recommended the followin. Please consider colonoscopy to complete his workup. 2. Follow up with pathology results. 3. Ice chips would be fine from my standpoint, although he may not be able to tolerate liquids at the moment. 4. Multidisciplinary discussion. 5. I will continue to follow the patient along with you. Thank you again for allowing us to participate in the care of this very pleasant gentleman and his wonderful family. If there are any questions, please feel free to call me at [phone]. TOTAL VISIT TIME: 45 minutes of which more than half was spent in [id number] discussion with the patient, discussions with his , as well as coordination of care between multiple physicians and providers. UPDATED CLINICAL SUMMARY: The patient is a very pleasant 60-year-old gentleman with comorbidity of BMI 25.3 and no other major known medical issues, who was transferred from [facility] to [facility] due to insurance capitation on 05/26/2016 after he presented there with abdominal pain and nausea and vomiting. He has had a workup that included laboratory values showing normal CBC and electrolytes, but elevated CEA at 13.1, and abdominal and pelvic CT scan that shows an infiltrative submucosal mass roughly 3.2 cm in length x 3.2 cm transverse involving the proximal third portion of the duodenum, resulting in a partial obstruction of the stomach and proximal duodenum with differential including lymphomatoid and duodenal cancer being considered. The cardia of the stomach is also somewhat thickened. There was an infiltrative mass involving the cecum and ascending colon extending beyond the serosa into the adjacent mesentery with abnormal mesenteric lymph nodes medial to the ascending colon. The largest was 1.2 cm. There was also additional abnormal retroperitoneal lymph nodes. There was matting of small bowel loops medial to the ascending colon which were suspicious for carcinomatosis and evidence of bilateral inguinal hernias, the left being larger than the right. Prostate was enlarged. There was spondylosis of the thoracic and lumbosacral spine and calcified mediastinal lymph nodes in the chest. This was all on 05/27/2016. The patient also reportedly underwent upper endoscopy, although I do not have access to the report. COMORBIDITIES: 1. BMI 25.3. 2. Duodenal mass with ascending colon mass and a mass in between the 2 in addition to lymphadenopathy and mass in the pelvis as well as retroperitoneal lymph nodes suspicious for metastatic malignancy. 3. Bilateral inguinal hernias. 4. Enlarged prostate gland. 5. Spondylosis of the thoracic and lumbosacral spine. 6. Calcified mediastinal lymph nodes. DATE OF ADMISSION: 05/26/2016 HISTORY OF PRESENT ILLNESS: The patient is a very pleasant 60-year-old gentleman with the above-mentioned history, who we were kindly consulted to render a hepatobiliary and pancreatic opinion regarding his care. The patient reports having no nausea currently, but his nurse reported to me that he had vomited approximately 400 mL earlier in the morning. He does not report any major abdominal pain. He reports a 10 pound weight loss and no blood in the stool or urine and no changes in bowel or bladder habits. No issues with his lungs or his heart. ALLERGIES: NO KNOWN DRUG ALLERGIES. MEDICATIONS: 1. Amoxicillin. 2. Clarithromycin. 3. Macrobid 4. Omeprazole. SOCIAL HISTORY: The patient does not report any smoking, drinking, or intravenous drug use. FAMILY HISTORY: No major reported medical, surgical or oncologic problems in the family. REVIEW OF SYSTEMS: Other than the above-mentioned, there are no other pertinent positives or pertinent negatives in a complete 14-point review of systems. PHYSICAL EXAMINATION: GENERAL: The patient appears to be a very pleasant gentleman of descent, appearing stated age, sitting up in his bed in no acute distress. He appears to be comfortable. BMI is 25.3. VITAL SIGNS: Temperature 97.7, blood pressure 134/89, pulse 77, respiratory rate 18, pulse oximetry 97% on room air. HEENT: Normocephalic and atraumatic. Extraocular muscles and hearing are grossly intact bilaterally and symmetrically. Sclerae are nonicteric. Oral cavity is clear; oral mucosa appeared to be pink and moist. Dentition: poor. NECK: Supple. There is no lymphadenopathy or JVD. There is no submental, submandibular or supraclavicular lymphadenopathy. CHEST: Rises symmetrically with each breath; patient is breathing comfortably. There are no audible wheezes, rales or rhonchi on the gross exam. HEART: Pulse is regular and palpable on the left wrist. Capillary refill was normal. Carotid pulses are palpable bilaterally and symmetrically in the neck. EXTREMITIES: Lower extremities contain no pitting edema around the ankles bilaterally and symmetrically. ABDOMEN: Soft, nontender and nondistended. There is no evidence of organomegaly, caput medusae, engorged subcutaneous veins, or ascites. There are no peritoneal signs or guarding. SKIN: Appears to be pink and feels warm to touch. NEUROLOGIC: Awake, alert, and follows commands appropriately. LABORATORY DATA: As reviewed above. IMAGING: Reviewed above. Note that I personally reviewed all the available and pertinent images and I agree in general with their overall reported findings. Dictated By: RADHA BRUSH/ANN MARIE Conf#: [id number] DID#: [id number]
[2016-05-28 19:45] VITALS: BP 157/90; RESP 18
[2016-05-29] MEDS: ONDANSETRON 4 MG INJ IV PRN ×2 (00:05→06:55)
[2016-05-29] MEDS ORDERED: FAMOTIDINE 20 MG INJ IV ONE (03:30)
[2016-05-29] MEDS: DEXTROSE 5%-0.45% NACL 1,000 ML IV SCH ×4 (04:30→19:52)
[2016-05-29 07:32] VITALS: BP 122/76; RESP 18
[2016-05-29] MEDS: FAMOTIDINE 20 MG INJ IV SCH ×2 (08:41→20:35)
--- NOTE | 2016-05-29 13:10 | PN ---
Date/Time of Note Date/Time of Note DATE: 05/29/16 TIME: 13:08 Assessment/Plan VTE Prophylaxis VTE Prophylaxis Intervention: ambulation Lines/Catheters IV Catheter Type (from Nrs): Peripheral IV Urinary Cath still in place: No Assessment/Plan Assessment/Plan 60 year old male who presented to the emergency room at [place] with epigastric pain x 1 week associated with nausea and nonbloody, nonbilious emesis. -Abdominal US 05/25/16 showed no kidney stone or gallstone, steatosis with focal fatty sparing in the left side. - CT A/P demonstrated distended stomach as well as the second portion of the duodenum, with suspected mass causing obstruction at the third portion of the duodenum and periduodenal lymphadenopathy with largest confluent mass 2.6 x 3.9 cm and multiple additional smaller nodes adjacent to the duodenal mass, in the aortocaval region as well as along the mesenteric border of the cecum. A 2.3 x 2.9 cm mass lying above the bladder may represent a drop metastasis. concern for lymphoma and now s/p egd and if biopsy confirms malignancy then rx recommendations will be discussed. - s/p EGD per GI. If the EGD biopsy comes back negative or the tumor is not accessible, then we will proceed with a lymph node biopsy. - CEA elevated at 13.1, also check LDH and ordered. - CT Abdomen/pelvis with also findings of infiltrative mass in cecum. d/w GI, difficulty with colonoscopy prep because of gastric obstruction: may need TPN and NGT eventually if persistent symptoms d/w GI, nursing staff and family at bedside Subjective 24 Hr Interval Summary Cardiovascular: no complaints Gastrointestinal: nausea, pain, vomiting Exam/Review of Systems Vital Signs Vitals Vital Signs Date Time Temp Pulse Resp B/P Pulse Ox O2 Delivery O2 Flow Rate FiO2 05/29/16 07:32 98.2 74 18 122/76 96 05/27/16 20:00 Room Air 05/27/16 13:27 2.0 Intake and Output 05/28/16 05/28/16 05/29/16 14:59 22:59 06:59 Intake Total 940 ml 1000 ml Output Total 1000 ml 400 ml Balance -60 ml 600 ml Exam Constitutional: oriented Psych: anxiety Eyes: nl conjunctiva Neck: supple Musculoskeletal: nl extremities to inspection Results Result Diagram: 05/26/16221805/26/162218 Medications Medications Current Medications Metoclopramide HCl (Reglan) 10 mg Q6H PRN IV NAUSEA AND/OR VOMITING Last administered on 05/28/16 19:55; Admin Dose 10 MG; Start 05/26/16 at 08:00 Acetaminophen (Tylenol Supp) 650 mg Q6H PRN [place] PAIN LEVEL 1-3 OR FEVER; Start 05/26/16 at 08:00 Morphine Sulfate 2 mg 2 mg Q4H PRN IV SEVERE PAIN LEVEL 7-10; Start 05/26/16 at 08:00 Dextrose/Sodium Chloride (D5-1/2ns) 1,000 ml @ 75 mls/hr [id number] IV Last administered on 05/29/16 06:28; Admin Dose 75 MLS/HR; Start 05/27/16 at 12:30 Ondansetron HCl (Zofran Inj) 4 mg Q6H PRN IV NAUSEA AND/OR VOMITING Last administered on 05/29/16 06:55; Admin Dose 4 MG; Start 05/29/16 at 00:00 Famotidine (Pepcid Iv) 20 mg BID IV Last administered on 05/29/16 08:41; Admin Dose 20 MG; Start 05/29/16 at 09:00 DIAMOND ALY MD May 29, 2016 13:10
--- NOTE | 2016-05-29 16:37 | PN ---
Date/Time of Note Date/Time of Note DATE: 05/29/16 TIME: 16:35 Assessment/Plan VTE Prophylaxis VTE Prophylaxis Intervention: SCD's Lines/Catheters IV C[facility]ter Type (from [facility]): Peripheral IV Urinary Cath still in place: No Assessment/Plan Assessment/Plan 1. 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 2. Intractable abdominal pain, likely secondary to a duodenal mass. 3. Rule out acute gastritis/stomach cancer. 4. History of distended stomach, likely secondary to possible obstruction from the mass. 5. A 2.3 x 2.9 cm mass above the bladder, which may present a drop metastasis. 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 As per evaluation by Dr.Kambiz Byrne- angel ill need colonoscopy also H &O , GI , General surgery and hepatobiliary surgery on the case will follow up Exam/Review of Systems Vital Signs Vitals Vital Signs Date Time Temp Pulse Resp B/P Pulse Ox O2 Delivery O2 Flow Rate FiO2 05/29/16 07:32 98.2 74 18 122/76 96 05/27/16 20:00 Room Air 05/27/16 13:27 2.0 Intake and Output 05/28/16 05/28/16 05/29/16 15:00 23:00 07:00 Intake Total 940 ml 1000 ml Output Total 1000 ml 400 ml Balance -60 ml 600 ml Exam GENERAL: Awake, alert, in no distress. HEENT: Normal. Oropharynx clear. NECK: Supple, no JVD, no lymphadenopathy. LUNGS: Clear to auscultation. No crackles, no wheezes. HEART: S1, S2, with regular rhythm, no murmur. ABDOMEN: Soft, tender to palpation in the mid epigastric to mid umbilical area. No rebound, no guarding. Bowel sounds are present. EXTREMITIES: No clubbing, cyanosis, or edema. NEUROLOGICAL: Nonfocal, intact. PSYCHIATRIC: Appropriate affect and mood. Results Result Diagram: 05/26/16221805/26/162218 Medications Medications Current Medications Metoclopramide HCl (Reglan) 10 mg Q6H PRN IV NAUSEA AND/OR VOMITING Last administered on 05/28/16 19:55; Admin Dose 10 MG; Start 05/26/16 at 08:00 Acetaminophen (Tylenol Supp) 650 mg Q6H PRN [place] PAIN LEVEL 1-3 OR FEVER; Start 05/26/16 at 08:00 Morphine Sulfate 2 mg 2 mg Q4H PRN IV SEVERE PAIN LEVEL 7-10; Start 05/26/16 at 08:00 Dextrose/Sodium Chloride (D5-1/2ns) 1,000 ml @ 75 mls/hr [id number] IV Last administered on 05/29/16 06:28; Admin Dose 75 MLS/HR; Start 05/27/16 at 12:30 Ondansetron HCl (Zofran Inj) 4 mg Q6H PRN IV NAUSEA AND/OR VOMITING Last administered on 05/29/16 06:55; Admin Dose 4 MG; Start 05/29/16 at 00:00 Famotidine (Pepcid Iv) 20 mg BID IV Last administered on 05/29/16 08:41; Admin Dose 20 MG; Start 05/29/16 at 09:00 SHANAE LEWIS MD May 29, 2016 16:37
--- NOTE | 2016-05-29 18:17 | RADRPT ---
PROCEDURE: XR Chest. CLINICAL INDICATION: Nasogastric tube placement. TECHNIQUE: Portable AP view of the chest was obtained. COMPARISON: None. FINDINGS: The cardiomediastinal silhouette is within normal limits. The lungs are clear. Distal tip of the na sogastric tube is below the diaphragm and pointing to the left in the region of the gastric fundus T here is no evidence for pleural effusion, pneumothorax or pulmonary vascular congestion. The osseou s structures are intact with no evidence for acute abnormality. RPTAT:HJJR IMPRESSION: 1. Distal tip of the nasogastric tube is within the stomach. 2. No evidence for acute intrathoracic pathology. Physician Chandler Date Time Electronically viewed and signed by Physician Chandler on 05/29/2016 18:17 /
--- NOTE | 2016-05-29 18:50 | PN ---
Date/Time of Note Date/Time of Note DATE: 05/29/16 TIME: 18:48 Assessment/Plan Lines/Catheters IV Catheter Type (from [facility] [place]): Peripheral IV [place] in Place (from [facility] [place]): No Assessment/Plan Chief Complaint/Hosp Course 1. Duodenal mass with lymphadenopathy with narrowing. -ngt/npo -await pathology -consider UGI and possible stenting of duodenum -Oncology f/u -Appreciate HBS input 2. Nausea/vomiting secondary to ? outlet obstruction as above -npo/ngt -as above 3. Steatosis -Eventual nutrition and lifestyle optimization 4. Weight loss probably secondary to above -As above Thank you, Problems: Subjective 24 Hr Interval Summary s/p EGD with tumor in 3rd portion of duodenum with narrowing. No fevers or chills. No chest pain or shortness of breath. Nausea and vomiting. No cough. No seizure. No headache, visual, or neurologic changes. No dysuria. Exam/Review of Systems Vital Signs Vitals Vital Signs Date Time Temp Pulse Resp B/P Pulse Ox O2 Delivery O2 Flow Rate FiO2 05/29/16 07:32 98.2 74 18 122/76 96 05/27/16 20:00 Room Air 05/27/16 13:27 2.0 Intake and Output 05/28/16 05/28/16 05/29/16 15:00 23:00 07:00 Intake Total 940 ml 1000 ml Output Total 1000 ml 400 ml Balance -60 ml 600 ml Exam Free Text/Dictation Constitutional: alert, oriented, No distress Psych: nl mood/affect, No anxiety, No confusion Head: atraumatic, normocephalic Eyes: EOMI, PERRL, nl conjunctiva, No icteric ENMT: mucosa pink and moist, nl external ears & nose, nl lips & teeth Neck: non-tender, supple, No jvd, No masses Respiratory: normal air movement, No congested cough, No labored breathing Cardiovascular: regular rate and rhythm, No edema Gastrointestinal: non-tender, soft, No distended, No rebound or guarding Genitourinary - Male: nl scrotum Musculoskeletal: nl extremities to inspection, nl gait and stance, No joint tenderness Extremities: normal pulses, No calf tenderness, No cyanosis Neurological: nl mental status, nl speech, nl strength Skin: nl turgor, No diaphoresis, No rash or lesions Lymph: No nl lymph nodes (Inguinal) Results Result Diagram: 05/26/16221805/26/162218 DIAMOND FITZGERALD MD May 29, 2016 18:50
--- NOTE | 2016-05-29 18:57 | CONS ---
Date/Time of Note Date/Time of Note DATE: 05/29/16 TIME: 18:56 Assessment/Plan Assessment/Plan Additional Assessment/Plan Additional Assessment/Plan IMPRESSION: 1. 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 2. Lymphadenopathy. 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 4. mass caecum extending in to ascending colon 5. CEA 13.1 Plan review biopsy result,if negative then lymph node biopsy or caecal mass biopsy TPN in the interim Discussed the case with the oncologist Dr. Colbert Consultation Date/Type/Reason Admit Date/Time May 26, 2016 at 06:29 Initial Consult Date 05/26/16 Type of Consultation: Hematology/Oncology Referring Provider: SHANAE LEWIS MD 24 HR Interval Summary Free Text/Dictation Patient had emesis this morning he vomited 400 cc of biliary juice Exam/Review of Systems Vital Signs Vitals Vital Signs Date Time Temp Pulse Resp B/P Pulse Ox O2 Delivery O2 Flow Rate FiO2 05/29/16 07:32 98.2 74 18 122/76 96 05/27/16 20:00 Room Air 05/27/16 13:27 2.0 Intake and Output 05/28/16 05/28/16 05/29/16 15:00 23:00 07:00 Intake Total 940 ml 1000 ml Output Total 1000 ml 400 ml Balance -60 ml 600 ml Exam Constitutional: alert, oriented, well developed Psych: nl mood/affect, no complaints Head: atraumatic, normocephalic Eyes: EOMI, PERRL, nl conjunctiva, nl lids, nl sclera ENMT: nl external ears & nose, nl lips & teeth, nl nasal mucosa & septum Neck: non-tender, supple Respiratory: clear to auscultation, normal air movement Cardiovascular: nl pulses, regular rate and rhythm Gastrointestinal: nl liver, spleen, non-tender, soft Musculoskeletal: nl extremities to inspection, nl gait and stance Extremities: normal pulses Neurological: SLIDE MACHINE TENDER II-XII intact, nl mental status, nl speech, nl strength Skin: nl turgor, No rash or lesions Lymph: nl lymph nodes Results Result Diagram: 05/26/16221805/26/162218 Medications Medications Current Medications Metoclopramide HCl (Reglan) 10 mg Q6H PRN IV NAUSEA AND/OR VOMITING Last administered on 05/28/16 19:55; Admin Dose 10 MG; Start 05/26/16 at 08:00 Acetaminophen (Tylenol Supp) 650 mg Q6H PRN [place] PAIN LEVEL 1-3 OR FEVER; Start 05/26/16 at 08:00 Morphine Sulfate 2 mg 2 mg Q4H PRN IV SEVERE PAIN LEVEL 7-10; Start 05/26/16 at 08:00 Dextrose/Sodium Chloride (D5-1/2ns) 1,000 ml @ 75 mls/hr [id number] IV Last administered on 05/29/16 06:28; Admin Dose 75 MLS/HR; Start 05/27/16 at 12:30 Ondansetron HCl (Zofran Inj) 4 mg Q6H PRN IV NAUSEA AND/OR VOMITING Last administered on 05/29/16 06:55; Admin Dose 4 MG; Start 05/29/16 at 00:00 Famotidine (Pepcid Iv) 20 mg BID IV Last administered on 05/29/16 08:41; Admin Dose 20 MG; Start 05/29/16 at 09:00 TIANNA SALINAS MD May 29, 2016 18:57
[2016-05-29 19:27] VITALS: BP 130/82; RESP 16
--- NOTE | 2016-05-29 22:20 | PN ---
Date/Time of Note Date/Time of Note DATE: 05/29/16 TIME: 10:16 Assessment/Plan Lines/Catheters IV Catheter Type (from Nrs): Peripheral IV Lanlge[place] in Place (from Nrs): No Assessment/Plan Assessment/Plan [facility] Progress Note Date of Service: 05/29/16 Today's Impression & Plan: Overall stable with ongoing issues with mild to moderate gastric outlet obstruction. Awaiting colonoscopy findings as well as path results. ? need for duodenal stenting (may not be feasible given location in 3rd portion). With above assessment, I've recommended the following for today: 1. Cont current cares 2. Keep NPO 3. Multidisciplinary discussion Thank you again for your great care of this very pleasant patient and wonderful family. If there are any questions, please feel free to call me at [phone]. TOTAL VISIT TIME: 20 minutes of which more than half was spent in [id number] discussion with the patient, possibly including family, as well as coordination of care between multiple physicians and providers. Disclaimer: Inadvertent spelling or grammatical errors are likely due to EHR/ dictation software use and do not reflect on the overall quality of patient care. Updated Clinical Summary: The patient is a very pleasant 60-year-old gentleman with comorbidity of BMI 25.3 and no other major known medical issues, who was transferred from [facility] to [facility] due to insurance capitation on 05/26/2016 after he presented there with abdominal pain and nausea and vomiting. He has had a workup that included laboratory values showing normal CBC and electrolytes, but elevated CEA at 13.1, and abdominal and pelvic CT scan that shows an infiltrative submucosal mass roughly 3.2 cm in length x 3.2 cm transverse involving the proximal third portion of the duodenum , resulting in a partial obstruction of the stomach and proximal duodenum with differential including lymphomatoid and duodenal cancer being considered. The cardia of the stomach is also somewhat thickened. There was an infiltrative mass involving the cecum and ascending colon extending beyond the serosa into the adjacent mesentery with abnormal mesenteric lymph nodes medial to the ascending colon. The largest was 1.2 cm. There was also additional abnormal retroperitoneal lymph nodes. There was matting of small bowel loops medial to the ascending colon which were suspicious for carcinomatosis and evidence of bilateral inguinal hernias, the left being larger than the right. Prostate was enlarged. There was spondylosis of the thoracic and lumbosacral spine and calcified mediastinal lymph nodes in the chest. This was all on 05/27/2016. The patient also reportedly underwent upper endoscopy, although I do not have access to the report. COMORBIDITIES: 1. BMI 25.3. 2. Duodenal mass with ascending colon mass and a mass in between the 2 in addition to lymphadenopathy and mass in the pelvis as well as retroperitoneal lymph nodes suspicious for metastatic malignancy. 3. Bilateral inguinal hernias. 4. Enlarged prostate gland. 5. Spondylosis of the thoracic and lumbosacral spine. 6. Calcified mediastinal lymph nodes. Subjective: No major events or complaints; no abd pain and under control with medications; + n/v and - d; no sob or cp; - flatus; - BM; + activity Objective: Vitals: See below Exam: GENERAL: On exam, the patient was laying in bed and appeared to be comfortable and in no acute distress. ABDOMEN: Soft, nontender and nondistended. There are no peritoneal signs or guarding. SKIN: Skin appears to be pink and feels warm to touch. NEUROLOGIC: Patient is awake, alert, and follows commands appropriately. Exam/Review of Systems Vital Signs Vitals Vital Signs Date Time Temp Pulse Resp B/P Pulse Ox O2 Delivery O2 Flow Rate FiO2 05/29/16 19:27 98.4 75 16 130/82 97 05/27/16 20:00 Room Air 05/27/16 13:27 2.0 Intake and Output 05/28/16 05/28/16 05/29/16 15:00 23:00 07:00 Intake Total 940 ml 1000 ml Output Total 1000 ml 400 ml Balance -60 ml 600 ml Results Result Diagram: 05/26/16 2219 05/26/162218 RADHA PAGE M.D. May 29, 2016 22:20
[2016-05-30 05:34] LABS: ADD SCAN DIFF NO
[2016-05-30 05:47] LABS: BASOPHILS % 0.2 % (0.0-2.0); EOSINOPHILS % 0.3 % (0.0-7.0); HEMATOCRIT 51.8 % (42.0-52.0); HEMOGLOBIN 17.6 g/dl (14.0-18.0); LYMPHOCYTES % 15.8 % (15.0-51.0); MEAN CORPUSCULAR HEMOGLOBIN 30.3 pg (29.0-33.0); MEAN CORPUSCULAR VOLUME 89.3 fl (82.0-101.0); MEAN PLATELET VOLUME 11.1 fl (7.4-10.4); NEUTROPHIL # 9.7 10^3/ul (1.6-7.5); NEUTROPHILS % 75.3 % (39.0-77.0); PLATELET COUNT 317 10^3/UL (140-415); RED CELL DISTRIBUTION WIDTH 12.4 % (11.5-14.5); WHITE BLOOD COUNT 12.8 10^3/ul (4.8-10.8)
[2016-05-30 06:41] LABS: POTASSIUM 3.9 mmol/L (3.5-5.1)
[2016-05-30 06:43] LABS: CREATININE 1.01 mg/dl (0.61-1.24)
[2016-05-30 06:44] LABS: CALCIUM 9.9 mg/dl (8.4-10.2)
[2016-05-30 07:35] VITALS: BP 143/83; RESP 20
--- NOTE | 2016-05-30 08:04 | CONS ---
Date/Time of Note Date/Time of Note DATE: 05/30/16 TIME: 08:02 Assessment/Plan Assessment/Plan Chief Complaint/Hosp Course 60 year old male who presented to the emergency room at [place] with epigastric pain x 1 week associated with nausea and nonbloody, nonbilious emesis. -Abdominal US 05/25/16 showed no kidney stone or gallstone, steatosis with focal fatty sparing in the left side. - CT A/P demonstrated distended stomach as well as the second portion of the duodenum, with suspected mass causing obstruction at the third portion of the duodenum and periduodenal lymphadenopathy with largest confluent mass 2.6 x 3.9 cm and multiple additional smaller nodes adjacent to the duodenal mass, in the aortocaval region as well as along the mesenteric border of the cecum. A 2.3 x 2.9 cm mass lying above the bladder may represent a drop metastasis. concern for lymphoma and now s/p egd and if biopsy confirms malignancy then rx recommendations will be discussed. - s/p EGD per GI. If the EGD biopsy comes back negative or the tumor is not accessible, then we will proceed with a lymph node biopsy. PATH PENDING - CEA elevated at 13.1, also check LDH and ordered. - CT Abdomen/pelvis with also findings of infiltrative mass in cecum. d/w GI, difficulty with colonoscopy prep because of gastric obstruction: may need TPN and NGT eventually if persistent symptoms \ Problems: Consultation Date/Type/Reason Admit Date/Time May 26, 2016 at 06:29 Initial Consult Date 05/26/16 Type of Consultation: Hematology/Oncology Reason for Consultation gastric malignancy Referring Provider: SHANAE LEWIS MD 24 HR Interval Summary Free Text/Dictation patient with a lot of secretions from NGT. Exam/Review of Systems Vital Signs Vitals Vital Signs Date Time Temp Pulse Resp B/P Pulse Ox O2 Delivery O2 Flow Rate FiO2 05/30/16 07:35 97.4 98 20 143/83 98 05/27/16 20:00 Room Air 05/27/16 13:27 2.0 Intake and Output 05/29/16 05/29/16 05/30/16 14:59 22:59 06:59 Intake Total 1000 ml 750 ml Output Total 300 ml 2050 ml 420 ml Balance -300 ml -1050 ml 330 ml Exam Constitutional: alert, frail Psych: anxiety, depression Head: normocephalic Eyes: nl conjunctiva ENMT: nl external ears & nose, other (NGT in place) Neck: supple Respiratory: clear to auscultation, normal air movement Cardiovascular: regular rate and rhythm Gastrointestinal: soft Musculoskeletal: nl extremities to inspection, nl gait and stance Results Result Diagram: 05/30/16 0436 05/30/16 0436 Results 24 hrs Laboratory Tests Test 05/30/16 04:36 White Blood Count 12.8 #H Red Blood Count 5.80 Hemoglobin 17.6 Hematocrit 51.8 Mean Corpuscular Volume 89.3 Mean Corpuscular Hemoglobin 30.3 Mean Corpuscular Hemoglobin Concent 34.0 Red Cell Distribution Width 12.4 Platelet Count 317 Mean Platelet Volume 11.1 H Neutrophils % 75.3 Lymphocytes % 15.8 Monocytes % 8.0 Eosinophils % 0.3 Basophils % 0.2 Nucleated Red Blood Cells % 0.0 Neutrophils # 9.7 H Lymphocytes # 2.0 Monocytes # 1.0 H Eosinophils # 0.0 Basophils # 0.0 Nucleated Red Blood Cells # 0.0 Sodium Level 141 Potassium Level 3.9 Chloride Level 96 L Carbon Dioxide Level 31 Anion Gap 18 H Blood Urea Nitrogen 55 H Creatinine 1.01 Glucose Level 165 Calcium Level 9.9 Lactate Dehydrogenase 508 Medications Medications Current Medications Metoclopramide HCl (Reglan) 10 mg Q6H PRN IV NAUSEA AND/OR VOMITING Last administered on 05/28/16 19:55; Admin Dose 10 MG; Start 05/26/16 at 08:00 Acetaminophen (Tylenol Supp) 650 mg Q6H PRN [place] PAIN LEVEL 1-3 OR FEVER; Start 05/26/16 at 08:00 Morphine Sulfate 2 mg 2 mg Q4H PRN IV SEVERE PAIN LEVEL 7-10; Start 05/26/16 at 08:00 Dextrose/Sodium Chloride (D5-1/2ns) 1,000 ml @ 75 mls/hr [id number] IV Last administered on 05/29/16 19:52; Admin Dose 75 MLS/HR; Start 05/27/16 at 12:30 Ondansetron HCl (Zofran Inj) 4 mg Q6H PRN IV NAUSEA AND/OR VOMITING Last administered on 05/29/16 06:55; Admin Dose 4 MG; Start 05/29/16 at 00:00 Famotidine (Pepcid Iv) 20 mg BID IV Last administered on 05/29/16t 20:35; Admin Dose 20 MG; Start 05/29/16 at 09:00 ELTY HUNTER M.D. May 30, 2016 08:04
--- NOTE | 2016-05-30 08:15 | GILP ---
DATE OF PROCEDURE: PROCEDURE: EGD with biopsy. INDICATION: The patient is a 60-year-old male undergoing this procedure for gastric outlet obstruct ion secondary to tumor in the third part of the duodenum, and he has got a surrounding lymphadenopat hy. The purpose is to evaluate the upper GI tract and also take a biopsy. The risk of the procedur e, related and unrelated complications, anesthetic risks, alternatives discussed and informed consen t was obtained. DESCRIPTION OF PROCEDURE: Patient was sedated by IRVIN Melendez. After optimal sedation, scope was passed with much ease into esophagus. The patient had extensive esophageal superficial ulceration i nvolving the distal part of the esophagus and he had regurgitation of bile juice all the way up to t he mid portion. With the help of scope, we aspirated of the bile juice constantly and total of 1600 mL of the fluid was removed from the stomach and when the stomach was emptied, scope was advanced f urther. In the third part of the duodenum, there was a narrowing and ulceration. Multiple biopsies obtained. I feel that this may be lymphoma. The scope was then removed. Retroversion done, no gr owth was seen. Stomach was decompressed. The scope was removed with good patient tolerance. IMPRESSION: 1. Gastric outlet obstruction, 1600 mL of bile juice removed. 2. Extensive circumferential patchy esophageal ulceration in the distal part of the esophagus. 3. Obstruction of the third part of the duodenum by ulcerated firm growth. Multiple biopsies obtai vielka. PLAN: Review histopathology. If the biopsy for some reason is negative or it is necrotizing tissue , then we may have to do lymph node biopsy under CT guidance. Dictated By: TIANNA WILSON/ANN MARIE Conf#: [id number] DID#: [id number] CC: LETY HUNTER MD; SHANAE LEWIS MD; TIANNA SALINAS MD;*EndCC*
[2016-05-30] MEDS: DEXTROSE 5%-0.45% NACL 1,000 ML IV SCH ×3 (08:20→22:57)
[2016-05-30] MEDS: FAMOTIDINE 20 MG INJ IV SCH ×2 (08:21→20:50)
--- NOTE | 2016-05-30 10:35 | PN ---
Date/Time of Note Date/Time of Note DATE: 05/30/16 TIME: 10:34 Assessment/Plan Lines/Catheters IV Catheter Type (from [facility]): Peripheral IV [place] in Place (from [facility]): No Assessment/Plan Chief Complaint/Hosp Course 1. Duodenal mass with lymphadenopathy with narrowing. -ngt/npo -await pathology -consider UGI and possible stenting of duodenum -Oncology f/u 2. Nausea/vomiting secondary to ? outlet obstruction as above -npo/ngt -as above 3. Steatosis -Eventual nutrition and lifestyle optimization 4. Weight loss probably secondary to above -As above Thank you, Problems: Subjective 24 Hr Interval Summary NGT inserted with 1L out. Leukocytosis. No fevers or chills. No chest pain or shortness of breath. Nausea and vomiting. No cough. No seizure. No headache, visual, or neurologic changes. No dysuria. Exam/Review of Systems Vital Signs Vitals Vital Signs Date Time Temp Pulse Resp B/P Pulse Ox O2 Delivery O2 Flow Rate FiO2 05/30/16 07:35 97.4 98 20 143/83 98 05/27/16 20:00 Room Air 05/27/16 13:27 2.0 Intake and Output 05/29/16 05/29/16 05/30/16 15:00 23:00 07:00 Intake Total 1000 ml 750 ml Output Total 300 ml 2050 ml 420 ml Balance -300 ml -1050 ml 330 ml Exam Free Text/Dictation Constitutional: alert, oriented, No distress Psych: nl mood/affect, No anxiety, No confusion Head: atraumatic, normocephalic Eyes: EOMI, PERRL, nl conjunctiva, No icteric ENMT: mucosa pink and moist, nl external ears & nose, nl lips & teeth Neck: non-tender, supple, No jvd, No masses Respiratory: normal air movement, No congested cough, No labored breathing Cardiovascular: regular rate and rhythm, No edema Gastrointestinal: non-tender, soft, No distended, No rebound or guarding Genitourinary - Male: nl scrotum Musculoskeletal: nl extremities to inspection, nl gait and stance, No joint tenderness Extremities: normal pulses, No calf tenderness, No cyanosis Neurological: nl mental status, nl speech, nl strength Skin: nl turgor, No diaphoresis, No rash or lesions Lymph: No nl lymph nodes (Inguinal) Results Result Diagram: 05/30/16 0436 05/30/16 0436 DIAMOND FITZGERALD MD May 30, 2016 10:35
--- NOTE | 2016-05-30 10:49 | PN ---
Date/Time of Note Date/Time of Note DATE: 05/30/16 TIME: 10:43 Assessment/Plan VTE Prophylaxis VTE Prophylaxis Intervention: SCD's Lines/Catheters IV C[facility]ter Type (from [facility]): Peripheral IV Urinary Cath still in place: No Assessment/Plan Chief Complaint/Hosp Course Assessment/Plan: 60 M with: 1. Duodenal mass - with approximately 2.6 x 3.9 cm size with periduodenal lymphadenopathy concerned about malignancy versus a metastatic cancer. Pt is s/ p EGD, showed: Gastric outlet obstruction secondary to tumor invading the third part of the duodenum. There is also a 2.3 x 2.9 cm mass above the bladder , which may present a drop metastasis. - continue NG tube for now, f/u path biopsy results (pending) - Rule out acute gastritis/stomach cancer vs other (lymphoma?) - f/u GI, Heme/Onc, surgery rec's. - continue IVF D51/2 NS 2. Intractable abdominal pain - likely secondary to a duodenal mass (see # 1) - continue current meds for control 3. History of distended stomach, likely secondary to possible obstruction from the mass. 4. GI ppx - H2 [place] Problems: Subjective 24 Hr Interval Summary Free Text/Dictation Seen by surgery team this AM. NG tube in place. Exam/Review of Systems Vital Signs Vitals Vital Signs Date Time Temp Pulse Resp B/P Pulse Ox O2 Delivery O2 Flow Rate FiO2 05/30/16 07:35 97.4 98 20 143/83 98 05/27/16 20:00 Room Air 05/27/16 13:27 2.0 Intake and Output 05/29/16 05/29/16 05/30/16 15:00 23:00 07:00 Intake Total 1000 ml 750 ml Output Total 300 ml 2050 ml 420 ml Balance -300 ml -1050 ml 330 ml Exam GENERAL: Awake, alert, in no distress, NG tube in place HEENT: Normal. Oropharynx clear. NECK: Supple, no JVD, no lymphadenopathy. LUNGS: Clear to auscultation. No crackles, no wheezes. HEART: S1, S2, with regular rhythm, no murmur. ABDOMEN: Soft, tender to palpation in the mid epigastric to mid umbilical area. No rebound, no guarding. Bowel sounds are present. EXTREMITIES: No clubbing, cyanosis, or edema. NEUROLOGICAL: Nonfocal, intact. PSYCHIATRIC: Appropriate affect and mood. Results Result Diagram: 05/30/16 0436 05/30/16 0436 Results 24 hrs Laboratory Tests Test 05/30/16 04:36 White Blood Count 12.8 #H Red Blood Count 5.80 Hemoglobin 17.6 Hematocrit 51.8 Mean Corpuscular Volume 89.3 Mean Corpuscular Hemoglobin 30.3 Mean Corpuscular Hemoglobin Concent 34.0 Red Cell Distribution Width 12.4 Platelet Count 317 Mean Platelet Volume 11.1 H Neutrophils % 75.3 Lymphocytes % 15.8 Monocytes % 8.0 Eosinophils % 0.3 Basophils % 0.2 Nucleated Red Blood Cells % 0.0 Neutrophils # 9.7 H Lymphocytes # 2.0 Monocytes # 1.0 H Eosinophils # 0.0 Basophils # 0.0 Nucleated Red Blood Cells # 0.0 Sodium Level 141 Potassium Level 3.9 Chloride Level 96 L Carbon Dioxide Level 31 Anion Gap 18 H Blood Urea Nitrogen 55 H Creatinine 1.01 Glucose Level 165 Calcium Level 9.9 Lactate Dehydrogenase 508 Medications Medications Current Medications Metoclopramide HCl (Reglan) 10 mg Q6H PRN IV NAUSEA AND/OR VOMITING Last administered on 05/28/16 19:55; Admin Dose 10 MG; Start 05/26/16 at 08:00 Acetaminophen (Tylenol Supp) 650 mg Q6H PRN [place] PAIN LEVEL 1-3 OR FEVER; Start 05/26/16 at 08:00 Morphine Sulfate 2 mg 2 mg Q4H PRN IV SEVERE PAIN LEVEL 7-10; Start 05/26/16 at 08:00 Dextrose/Sodium Chloride (D5-1/2ns) 1,000 ml @ 75 mls/hr [id number] IV Last administered on 05/30/16 08:20; Admin Dose 75 MLS/HR; Start 05/27/16 at 12:30 Ondansetron HCl (Zofran Inj) 4 mg Q6H PRN IV NAUSEA AND/OR VOMITING Last administered on 05/29/16 06:55; Admin Dose 4 MG; Start 05/29/16 at 00:00 Famotidine (Pepcid Iv) 20 mg BID IV Last administered on 05/30/16 08:21; Admin Dose 20 MG; Start 05/29/16 at 09:00 NEL DEL ANGEL May 30, 2016 10:49
--- NOTE | 2016-05-30 16:46 | PN ---
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 primary duodenal metastatic to colon vs. reverse). Important to distinguish since would make a difference in terms of management and prognosis. Awaiting further multidisciplinary discussions and colonoscopy findings. May need surgical bypass if duodenal stenting not possible. Discussed with patient (no family present) and answered all questions. With above assessment, I've recommended the following for today: 1. Cont current cares 2. Keep NPO 3. Multidisciplinary discussion Thank you again for your great care of this very pleasant patient and wonderful family. If there are any questions, please feel free to call me at [phone]. TOTAL VISIT TIME: 20 minutes of which more than half was spent in [id number] discussion with the patient, possibly including family, as well as coordination of care between multiple physicians and providers. Disclaimer: Inadvertent spelling or grammatical errors are likely due to EHR/ dictation software use and do not reflect on the overall quality of patient care. Updated Clinical Summary: The patient is a very pleasant 60-year-old gentleman with comorbidity of BMI 25.3 and no other major known medical issues, who was transferred from [facility] to [facility] due to insurance capitation on 05/26/2016 after he presented there with abdominal pain and nausea and vomiting. He has had a workup that included laboratory values showing normal CBC and electrolytes, but elevated CEA at 13.1, and abdominal and pelvic CT scan that shows an infiltrative submucosal mass roughly 3.2 cm in length x 3.2 cm transverse involving the proximal third portion of the duodenum , resulting in a partial obstruction of the stomach and proximal duodenum with differential including lymphomatoid and duodenal cancer being considered. The cardia of the stomach is also somewhat thickened. There was an infiltrative mass involving the cecum and ascending colon extending beyond the serosa into the adjacent mesentery with abnormal mesenteric lymph nodes medial to the ascending colon. The largest was 1.2 cm. There was also additional abnormal retroperitoneal lymph nodes. There was matting of small bowel loops medial to the ascending colon which were suspicious for carcinomatosis and evidence of bilateral inguinal hernias, the left being larger than the right. Prostate was enlarged. There was spondylosis of the thoracic and lumbosacral spine and calcified mediastinal lymph nodes in the chest. This was all on 05/27/2016. The patient also reportedly underwent upper endoscopy, although I do not have access to the report. COMORBIDITIES: 1. BMI 25.3. 2. Duodenal mass with ascending colon mass and a mass in between the 2 in addition to lymphadenopathy and mass in the pelvis as well as retroperitoneal lymph nodes suspicious for metastatic malignancy. 3. Bilateral inguinal hernias. 4. Enlarged prostate gland. 5. Spondylosis of the thoracic and lumbosacral spine. 6. Calcified mediastinal lymph nodes. Subjective: No major events or complaints; no abd pain and under control with medications; + n/v and - d; no sob or cp; - flatus; - BM; + activity Objective: Vitals: See below Exam: GENERAL: On exam, the patient was laying in bed and appeared to be comfortable and in no acute distress. ABDOMEN: Soft, nontender and nondistended. There are no peritoneal signs or guarding. SKIN: Skin appears to be pink and feels warm to touch. NEUROLOGIC: Patient is awake, alert, and follows commands appropriately. Exam/Review of Systems Vital Signs Vitals Vital Signs Date Time Temp Pulse Resp B/P Pulse Ox O2 Delivery O2 Flow Rate FiO2 05/30/16 07:35 97.4 98 20 143/83 98 05/27/16 20:00 Room Air 05/27/16 13:27 2.0 Intake and Output 05/29/16 05/29/16 05/30/16 15:00 23:00 07:00 Intake Total 1000 ml 750 ml Output Total 300 ml 2050 ml 420 ml Balance -300 ml -1050 ml 330 ml Results Result Diagram: 05/30/16 0436 05/30/16 0436 RADHA PAGE M.D. May 30, 2016 16:46
[2016-05-30 19:00] VITALS: BP 138/85; RESP 18
--- NOTE | 2016-05-30 20:07 | CONS ---
Date/Time of Note Date/Time of Note DATE: 05/30/16 TIME: 20:05 Assessment/Plan Assessment/Plan Additional Assessment/Plan IMPRESSION: 1. 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 Lymphadenopathy. 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 4. mass caecum extending in to ascending colon 5. CEA 13. 6. BPH Plan Duodenal stent Chemotherapy We will discuss with the surgeon also Patient needs multiple disciplinary approach, his prognosis remains poor Consultation Date/Type/Reason Admit Date/Time May 26, 2016 at 06:29 Initial Consult Date 05/26/16 Type of Consultation: Hematology/Oncology Referring Provider: SHANAE LEWIS MD 24 HR Interval Summary Constitutional: no complaints Exam/Review of Systems Vital Signs Vitals Vital Signs Date Time Temp Pulse Resp B/P Pulse Ox O2 Delivery O2 Flow Rate FiO2 05/30/16 07:35 97.4 98 20 143/83 98 05/27/16 20:00 Room Air 05/27/16 13:27 2.0 Intake and Output 05/29/16 05/29/16 05/30/16 15:00 23:00 07:00 Intake Total 1000 ml 750 ml Output Total 300 ml 2050 ml 420 ml Balance -300 ml -1050 ml 330 ml Exam Constitutional: alert, oriented, well developed Psych: nl mood/affect, no complaints Head: atraumatic, normocephalic Eyes: EOMI, PERRL, nl conjunctiva, nl lids, nl sclera ENMT: nl external ears & nose, nl lips & teeth, nl nasal mucosa & septum Neck: non-tender, supple Respiratory: clear to auscultation, normal air movement Cardiovascular: nl pulses, regular rate and rhythm Gastrointestinal: nl liver, spleen, non-tender, soft Musculoskeletal: nl extremities to inspection, nl gait and stance Extremities: normal pulses Neurological: GRAIN PICKER II-XII intact, nl mental status, nl speech, nl strength Skin: nl turgor, No rash or lesions Lymph: nl lymph nodes Results Result Diagram: 05/30/16 0436 05/30/16 0436 Results 24 hrs Laboratory Tests Test 05/30/16 04:36 White Blood Count 12.8 #H Red Blood Count 5.80 Hemoglobin 17.6 Hematocrit 51.8 Mean Corpuscular Volume 89.3 Mean Corpuscular Hemoglobin 30.3 Mean Corpuscular Hemoglobin Concent 34.0 Red Cell Distribution Width 12.4 Platelet Count 317 Mean Platelet Volume 11.1 H Neutrophils % 75.3 Lymphocytes % 15.8 Monocytes % 8.0 Eosinophils % 0.3 Basophils % 0.2 Nucleated Red Blood Cells % 0.0 Neutrophils # 9.7 H Lymphocytes # 2.0 Monocytes # 1.0 H Eosinophils # 0.0 Basophils # 0.0 Nucleated Red Blood Cells # 0.0 Sodium Level 141 Potassium Level 3.9 Chloride Level 96 L Carbon Dioxide Level 31 Anion Gap 18 H Blood Urea Nitrogen 55 H Creatinine 1.01 Glucose Level 165 Calcium Level 9.9 Lactate Dehydrogenase 508 Medications Medications Current Medications Metoclopramide HCl (Reglan) 10 mg Q6H PRN IV NAUSEA AND/OR VOMITING Last administered on 05/28/16 19:55; Admin Dose 10 MG; Start 05/26/16 at 08:00 Acetaminophen (Tylenol Supp) 650 mg Q6H PRN [place] PAIN LEVEL 1-3 OR FEVER; Start 05/26/16 at 08:00 Morphine Sulfate 2 mg 2 mg Q4H PRN IV SEVERE PAIN LEVEL 7-10; Start 05/26/16 at 08:00 Dextrose/Sodium Chloride (D5-1/2ns) 1,000 ml @ 75 mls/hr [id number] IV Last administered on 05/30/16 08:20; Admin Dose 75 MLS/HR; Start 05/27/16 at 12:30 Ondansetron HCl (Zofran Inj) 4 mg Q6H PRN IV NAUSEA AND/OR VOMITING Last administered on 05/29/16 06:55; Admin Dose 4 MG; Start 05/29/16 at 00:00 Famotidine (Pepcid Iv) 20 mg BID IV Last administered on 05/30/16 08:21; Admin Dose 20 MG; Start 05/29/16 at 09:00 TIANNA SALINAS MD May 30, 2016 20:07
[2016-05-31 06:04] LABS: ADD SCAN DIFF NO
[2016-05-31 06:24] LABS: BASOPHILS % 0.2 % (0.0-2.0); EOSINOPHILS # 0.1 10^3/ul (0.0-0.5); EOSINOPHILS % 0.4 % (0.0-7.0); HEMOGLOBIN 18.1 g/dl (14.0-18.0); LYMPHOCYTES # 2.2 10^3/ul (0.8-2.9); LYMPHOCYTES % 18.6 % (15.0-51.0); MEAN CORPUSCULAR HEMOGLOBIN 30.1 pg (29.0-33.0); MEAN CORPUSCULAR HGB CONC 33.5 g/dl (32.0-37.0); MEAN CORPUSCULAR VOLUME 89.9 fl (82.0-101.0); MEAN PLATELET VOLUME 11.1 fl (7.4-10.4); MONOCYTES % 8.5 % (0.0-11.0); NEUTROPHIL # 8.5 10^3/ul (1.6-7.5); NEUTROPHILS % 71.9 % (39.0-77.0); PLATELET COUNT 322 10^3/UL (140-415); RED BLOOD COUNT 6.01 10^6/ul (4.70-6.10); RED CELL DISTRIBUTION WIDTH 12.5 % (11.5-14.5); WHITE BLOOD COUNT 11.8 10^3/ul (4.8-10.8)
[2016-05-31 07:17] LABS: CALCIUM 9.9 mg/dl (8.4-10.2); CREATININE 1.14 mg/dl (0.61-1.24)
[2016-05-31 08:00] VITALS: BP 137/82; RESP 18
[2016-05-31] MEDS: FAMOTIDINE 20 MG INJ IV SCH ×2 (08:35→20:37)
[2016-05-31] MEDS: DEXTROSE 5%-0.45% NACL 1,000 ML IV SCH ×2 (08:40→23:10)
[2016-05-31] MEDS ORDERED: DIATR MEGLU/DIATRIZOATE SODIUM 120 ML BTL ONE ×2 (08:52→10:18)
--- NOTE | 2016-05-31 10:19 | PN ---
Date/Time of Note Date/Time of Note DATE: 05/31/16 TIME: 10:15 Assessment/Plan VTE Prophylaxis VTE Prophylaxis Intervention: SCD's Lines/Catheters [facility] Per[facility] IV Urinary Cath still in place: No Assessment/Plan Chief Complaint/Hosp Course Assessment/Plan: 60 M with: 1. Duodenal mass - with approximately 2.6 x 3.9 cm size with periduodenal lymphadenopathy concerned about malignancy versus a metastatic cancer. Unfortunately path report shows a poorly differentiated adenocarcinoma. EGD earlier showed: Gastric outlet obstruction secondary to tumor invading the third part of the duodenum. There is also a 2.3 x 2.9 cm mass above the bladder , which may be a drop metastasis. - continue NG tube for now, for port-a cath per Heme/Onc now as well - f/u GI, Heme/Onc, surgery rec's, especially regarding chemo options. - continue IVF D51/2 NS 2. Intractable abdominal pain - likely secondary to duodenal mass (see # 1) - continue current meds for control 3. History of distended stomach, likely secondary to possible obstruction from the mass. 4. GI ppx - H2 [place] Problems: Subjective 24 Hr Interval Summary Free Text/Dictation Pt's path came back + for poorly diff adenocarcinoma. No acute events overnight. Exam/Review of Systems Vital Signs Vitals Vital Signs Date Time Temp Pulse Resp B/P Pulse Ox O2 Delivery O2 Flow Rate FiO2 05/31/16 08:00 98.0 64 18 137/82 98 05/27/16 20:00 Room Air 05/27/16 13:27 2.0 Intake and Output 05/30/16 05/30/16 05/31/16 15:00 23:00 07:00 Intake Total 250 ml 675 ml 450 ml Output Total 1025 ml 500 ml Balance 250 ml -350 ml -50 ml Exam PE: - unable to be performed today b/c pt off floor at procedure now Results Result Diagram: 05/31/16 0515 05/31/16 0515 Results 24 hrs Laboratory Tests Test 05/31/16 05:15 White Blood Count 11.8 H Red Blood Count 6.01 Hemoglobin 18.1 H Hematocrit 54.0 H Mean Corpuscular Volume 89.9 Mean Corpuscular Hemoglobin 30.1 Mean Corpuscular Hemoglobin Concent 33.5 Red Cell Distribution Width 12.5 Platelet Count 322 Mean Platelet Volume 11.1 H Neutrophils % 71.9 Lymphocytes % 18.6 Monocytes % 8.5 Eosinophils % 0.4 Basophils % 0.2 Nucleated Red Blood Cells % 0.0 Neutrophils # 8.5 H Lymphocytes # 2.2 Monocytes # 1.0 H Eosinophils # 0.1 Basophils # 0.0 Nucleated Red Blood Cells # 0.0 Sodium Level 142 Potassium Level 4.0 Chloride Level 96 L Carbon Dioxide Level 32 H Anion Gap 18 H Blood Urea Nitrogen 59 H Creatinine 1.14 Glucose Level 169 Calcium Level 9.9 Medications Medications Current Medications Metoclopramide HCl (Reglan) 10 mg Q6H PRN IV NAUSEA AND/OR VOMITING Last administered on 05/28/16 19:55; Admin Dose 10 MG; Start 05/26/16 at 08:00 Acetaminophen (Tylenol Supp) 650 mg Q6H PRN [place] PAIN LEVEL 1-3 OR FEVER; Start 05/26/16 at 08:00 Morphine Sulfate 2 mg 2 mg Q4H PRN IV SEVERE PAIN LEVEL 7-10; Start 05/26/16 at 08:00 Dextrose/Sodium Chloride (D5-1/2ns) 1,000 ml @ 75 mls/hr [id number] IV Last administered on 05/31/16 08:40; Admin Dose 75 MLS/HR; Start 05/27/16 at 12:30 Ondansetron HCl (Zofran Inj) 4 mg Q6H PRN IV NAUSEA AND/OR VOMITING Last administered on 05/29/16 06:55; Admin Dose 4 MG; Start 05/29/16 at 00:00 Famotidine (Pepcid Iv) 20 mg BID IV Last administered on 05/31/16 08:35; Admin Dose 20 MG; Start 05/29/16 at 09:00 NEL DEL ANGEL May 31, 2016 10:19
--- NOTE | 2016-05-31 13:52 | RADRPT ---
PROCEDURE: Upper GI series. CLINICAL INDICATION: Abdomen pain. TECHNIQUE: 240 ml of Gastrografin was administered via the nasogastric tube and several spot and o verhead radiographs were obtained. 0.5 minutes of fluoroscopy time was used. COMPARISON: CT scan of the chest, abdomen, and pelvis dated 05/27/2016 which demonstrated a mass i n the third part of the duodenum. FINDINGS: On the preliminary radiograph, the nasogastric tube tip is in the stomach. Gas is present in the st omach and minimal gas is present in the distal colon. There are degenerative changes of the spine. The esophagus was not evaluated. There is moderate gastroesophageal reflux. The stomach is grossly normal with no mass demonstrated. There is a mass in the second part of the duodenum and proximal portion of the third part of the duo denum with marked irregularity of the mucosa and severe stenosis. On delayed images, contrast enters the jejunum. IMPRESSION: 1. Nasogastric tube tip in the stomach. 2. Degenerative changes of the spine. 3. Moderate gastroesophageal reflux. 4. Mass in the second and third part of the duodenum with marked irregularity of the mucosa and sev ere stenosis. RPTAT: QQ .Naldo Oneal MD, Date Time Electronically viewed and signed by .Naldo Oneal MD, on 05/31/2016 13:52 .R/
--- NOTE | 2016-05-31 15:08 | CONS ---
Date/Time of Note Date/Time of Note DATE: 05/31/16 TIME: 15:01 Assessment/Plan Assessment/Plan Chief Complaint/Hosp Course 60 year old male who presented to the emergency room at [facility] with epigastric pain x 1 week associated with nausea and nonbloody, nonbilious emesis. - CT A/P demonstrated distended stomach secondary to a duodenal mass causing obstruction at the third portion of the duodenum. Pt is also noted to have periduodenal lymphadenopathy with largest confluent mass 2.6 x 3.9 cm and multiple additional smaller nodes. Also seen is a 2.3 x 2.9 cm mass lying above the bladder may represent a drop metastasis. 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 PT will likely need to be started on Folfox chemotherapy as an out patient. Once the path is confirmed we will discuss the chemotherapy with him further -port a cath was ordered in preparation for chemotherapy -pt to have a duodenal stent place by Dr. De this to relieve his gastric outlet obstruction - CEA elevated at 13.1. will continue to monitor this as patient starts chemotherapy -there is no role for surgery at this time Case was discussed with Dr. Byrne, Dr. De and the family who concur with the above plan \ Problems: Consultation Date/Type/Reason Admit Date/Time May 26, 2016 at 06:29 Initial Consult Date 05/26/16 Type of Consultation: Hematology/Oncology Reason for Consultation adenocarcinoma of GI origin Referring Provider: SHANAE LEWIS MD 24 HR Interval Summary Free Text/Dictation pt still has NGT in place. was informed this morning of his cancer diagnosis Exam/Review of Systems Vital Signs Vitals Vital Signs Date Time Temp Pulse Resp B/P Pulse Ox O2 Delivery O2 Flow Rate FiO2 05/31/16 08:00 98.0 64 18 137/82 98 05/27/16 20:00 Room Air 05/27/16 13:27 2.0 Intake and Output 05/30/16 05/30/16 05/31/16 15:00 23:00 07:00 Intake Total 250 ml 675 ml 450 ml Output Total 1025 ml 500 ml Balance 250 ml -350 ml -50 ml Exam Constitutional: alert, frail, oriented Head: normocephalic Eyes: nl conjunctiva ENMT: other (NGT in place) Neck: non-tender, supple Cardiovascular: regular rate and rhythm Gastrointestinal: soft Musculoskeletal: nl extremities to inspection Results Result Diagram: 05/31/16 0515 05/31/16 0515 Results 24 hrs Laboratory Tests Test 05/31/16 05:15 White Blood Count 11.8 H Red Blood Count 6.01 Hemoglobin 18.1 H Hematocrit 54.0 H Mean Corpuscular Volume 89.9 Mean Corpuscular Hemoglobin 30.1 Mean Corpuscular Hemoglobin Concent 33.5 Red Cell Distribution Width 12.5 Platelet Count 322 Mean Platelet Volume 11.1 H Neutrophils % 71.9 Lymphocytes % 18.6 Monocytes % 8.5 Eosinophils % 0.4 Basophils % 0.2 Nucleated Red Blood Cells % 0.0 Neutrophils # 8.5 H Lymphocytes # 2.2 Monocytes # 1.0 H Eosinophils # 0.1 Basophils # 0.0 Nucleated Red Blood Cells # 0.0 Sodium Level 142 Potassium Level 4.0 Chloride Level 96 L Carbon Dioxide Level 32 H Anion Gap 18 H Blood Urea Nitrogen 59 H Creatinine 1.14 Glucose Level 169 Calcium Level 9.9 Medications Medications Current Medications Metoclopramide HCl (Reglan) 10 mg Q6H PRN IV NAUSEA AND/OR VOMITING Last administered on 05/28/16 19:55; Admin Dose 10 MG; Start 05/26/16 at 08:00 Acetaminophen (Tylenol Supp) 650 mg Q6H PRN [place] PAIN LEVEL 1-3 OR FEVER; Start 05/26/16 at 08:00 Morphine Sulfate 2 mg 2 mg Q4H PRN IV SEVERE PAIN LEVEL 7-10; Start 05/26/16 at 08:00 Dextrose/Sodium Chloride (D5-1/2ns) 1,000 ml @ 75 mls/hr [id number] IV Last administered on 05/31/16 08:40; Admin Dose 75 MLS/HR; Start 05/27/16 at 12:30 Ondansetron HCl (Zofran Inj) 4 mg Q6H PRN IV NAUSEA AND/OR VOMITING Last administered on 05/29/16 06:55; Admin Dose 4 MG; Start 05/29/16 at 00:00 Famotidine (Pepcid Iv) 20 mg BID IV Last administered on 05/31/16 08:35; Admin Dose 20 MG; Start 05/29/16 at 09:00 LETY HUNTER M.D. May 31, 2016 15:08
[2016-05-31 19:28] VITALS: BP 113/79; RESP 18
--- NOTE | 2016-05-31 23:04 | PN ---
Date/Time of Note Date/Time of Note DATE: 05/31/16 TIME: 23:01 Assessment/Plan Lines/Catheters IV Catheter Type (from [facility]): Saline Lock [place] in Place (from [facility]): No Assessment/Plan Chief Complaint/Hosp Course 1. 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 Nausea/vomiting secondary to outlet obstruction as above -npo/ngt -as above 3. Steatosis -Eventual nutrition and lifestyle optimization 4. Weight loss probably secondary to above -As above Thank you, Problems: Subjective 24 Hr Interval Summary UGI noted with significant stenosis. Path Adenocarcinoma. Leukocytosis. No fevers or chills. No chest pain or shortness of breath. Nausea and vomiting. No cough. No seizure. No headache, visual, or neurologic changes. No dysuria. Exam/Review of Systems Vital Signs Vitals Vital Signs Date Time Temp Pulse Resp B/P Pulse Ox O2 Delivery O2 Flow Rate FiO2 05/31/16 19:28 97.5 94 18 113/79 96 05/27/16 20:00 Room Air 05/27/16 13:27 2.0 Intake and Output 05/30/16 05/30/16 05/31/16 15:00 23:00 07:00 Intake Total 250 ml 675 ml 450 ml Output Total 1025 ml 500 ml Balance 250 ml -350 ml -50 ml Exam Free Text/Dictation Constitutional: alert, oriented, No distress Psych: nl mood/affect, No anxiety, No confusion Head: atraumatic, normocephalic Eyes: EOMI, PERRL, nl conjunctiva, No icteric ENMT: mucosa pink and moist, nl external ears & nose, nl lips & teeth Neck: non-tender, supple, No jvd, No masses Respiratory: normal air movement, No congested cough, No labored breathing Cardiovascular: regular rate and rhythm, No edema Gastrointestinal: non-tender, soft, No distended, No rebound or guarding Genitourinary - Male: nl scrotum Musculoskeletal: nl extremities to inspection, nl gait and stance, No joint tenderness Extremities: normal pulses, No calf tenderness, No cyanosis Neurological: nl mental status, nl speech, nl strength Skin: nl turgor, No diaphoresis, No rash or lesions Lymph: No nl lymph nodes (Inguinal) Results Free Text/Dictation UGI: 1. Nasogastric tube tip in the stomach. 2. Degenerative changes of the spine. 3. Moderate gastroesophageal reflux. 4. Mass in the second and third part of the duodenum with marked irregularity of the mucosa and severe stenosis. Result Diagram: 05/31/16 0515 05/31/16 0515 DIAMOND FITZGERALD MD May 31, 2016 23:04
--- NOTE | 2016-05-31 23:18 | CONS ---
Date/Time of Note Date/Time of Note DATE: 05/31/16 TIME: 23:15 Assessment/Plan Assessment/Plan Additional Assessment/Plan Additional Assessment/Plan IMPRESSION: 1. 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 Lymphadenopathy. 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 4. mass caecum extending in to ascending colon 5. CEA 13. 6. BPH Plan Duodenal stent on Chemotherapy discussed with pt and family member face to face for 20 mnts. pt. has agreed for stent discussed also with surgeons and oncologist Consultation Date/Type/Reason Admit Date/Time May 26, 2016 at 06:29 Initial Consult Date 05/26/16 Type of Consultation: Hematology/Oncology Referring Provider: SHANAE LEWIS MD 24 HR Interval Summary Constitutional: no complaints Exam/Review of Systems Vital Signs Vitals Vital Signs Date Time Temp Pulse Resp B/P Pulse Ox O2 Delivery O2 Flow Rate FiO2 05/31/16 19:28 97.5 94 18 113/79 96 05/27/16 20:00 Room Air 05/27/16 13:27 2.0 Intake and Output 05/30/16 05/30/16 05/31/16 15:00 23:00 07:00 Intake Total 250 ml 675 ml 450 ml Output Total 1025 ml 500 ml Balance 250 ml -350 ml -50 ml Exam Constitutional: alert, oriented, well developed Psych: nl mood/affect, no complaints Head: atraumatic, normocephalic Eyes: EOMI, PERRL, nl conjunctiva, nl lids, nl sclera ENMT: nl external ears & nose, nl lips & teeth, nl nasal mucosa & septum Neck: non-tender, supple Respiratory: clear to auscultation, normal air movement Cardiovascular: nl pulses, regular rate and rhythm Gastrointestinal: nl liver, spleen, non-tender, soft Musculoskeletal: nl extremities to inspection, nl gait and stance Extremities: normal pulses 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, nl mental status, nl speech, nl strength Skin: nl turgor, No rash or lesions Lymph: nl lymph nodes Results Result Diagram: 05/31/16 0515 05/31/16 0515 Results 24 hrs Laboratory Tests Test 05/31/16 05:15 White Blood Count 11.8 H Red Blood Count 6.01 Hemoglobin 18.1 H Hematocrit 54.0 H Mean Corpuscular Volume 89.9 Mean Corpuscular Hemoglobin 30.1 Mean Corpuscular Hemoglobin Concent 33.5 Red Cell Distribution Width 12.5 Platelet Count 322 Mean Platelet Volume 11.1 H Neutrophils % 71.9 Lymphocytes % 18.6 Monocytes % 8.5 Eosinophils % 0.4 Basophils % 0.2 Nucleated Red Blood Cells % 0.0 Neutrophils # 8.5 H Lymphocytes # 2.2 Monocytes # 1.0 H Eosinophils # 0.1 Basophils # 0.0 Nucleated Red Blood Cells # 0.0 Sodium Level 142 Potassium Level 4.0 Chloride Level 96 L Carbon Dioxide Level 32 H Anion Gap 18 H Blood Urea Nitrogen 59 H Creatinine 1.14 Glucose Level 169 Calcium Level 9.9 Medications Medications Current Medications Metoclopramide HCl (Reglan) 10 mg Q6H PRN IV NAUSEA AND/OR VOMITING Last administered on 05/28/16 19:55; Admin Dose 10 MG; Start 05/26/16 at 08:00 Acetaminophen (Tylenol Supp) 650 mg Q6H PRN [place] PAIN LEVEL 1-3 OR FEVER; Start 05/26/16 at 08:00 Morphine Sulfate 2 mg 2 mg Q4H PRN IV SEVERE PAIN LEVEL 7-10; Start 05/26/16 at 08:00 Dextrose/Sodium Chloride (D5-1/2ns) 1,000 ml @ 75 mls/hr [id number] IV Last administered on 05/31/16 08:40; Admin Dose 75 MLS/HR; Start 05/27/16 at 12:30 Ondansetron HCl (Zofran Inj) 4 mg Q6H PRN IV NAUSEA AND/OR VOMITING Last administered on 05/29/16 06:55; Admin Dose 4 MG; Start 05/29/16 at 00:00 Famotidine (Pepcid Iv) 20 mg BID IV Last administered on 05/31/16 20:37; Admin Dose 20 MG; Start 05/29/16 at 09:00 TIANNA SALINAS MD May 31, 2016 23:18
[2016-06-01] VITALS (8 sets, daily range): BP systolic 109–126; BP diastolic 75–86; PULSE 90–105; RESP 16–21
[2016-06-01] MEDS: DEXTROSE 5%-0.45% NACL 1,000 ML IV SCH (00:41)
[2016-06-01 06:05] LABS: ADD SCAN DIFF NO
[2016-06-01 06:13] LABS: BASOPHILS % 0.2 % (0.0-2.0); EOSINOPHILS % 0.1 % (0.0-7.0); HEMATOCRIT 54.5 % (42.0-52.0); HEMOGLOBIN 18.5 g/dl (14.0-18.0); LYMPHOCYTES # 1.9 10^3/ul (0.8-2.9); LYMPHOCYTES % 15.8 % (15.0-51.0); MEAN CORPUSCULAR HEMOGLOBIN 30.3 pg (29.0-33.0); MEAN CORPUSCULAR HGB CONC 33.9 g/dl (32.0-37.0); MEAN CORPUSCULAR VOLUME 89.3 fl (82.0-101.0); MONOCYTES % 8.4 % (0.0-11.0); PLATELET COUNT 323 10^3/UL (140-415); RED CELL DISTRIBUTION WIDTH 12.3 % (11.5-14.5)
[2016-06-01 06:32] LABS: POTASSIUM 3.8 mmol/L (3.5-5.1)
[2016-06-01 06:34] LABS: CREATININE 1.43 mg/dl (0.61-1.24)
[2016-06-01 06:35] LABS: CALCIUM 9.9 mg/dl (8.4-10.2)
[2016-06-01] MEDS: FAMOTIDINE 20 MG INJ IV SCH ×2 (08:20→20:38)
--- NOTE | 2016-06-01 08:54 | CONS ---
Date/Time of Note Date/Time of Note DATE: 06/01/16 TIME: 08:50 Assessment/Plan Assessment/Plan Chief Complaint/Hosp Course 60 year old male who presented to the emergency room at [facility] with epigastric pain x 1 week associated with nausea and nonbloody, nonbilious emesis. - CT A/P at [facility] demonstrated distended stomach secondary to a duodenal mass causing obstruction at the third portion of the duodenum. Pt is also noted to have periduodenal lymphadenopathy with largest confluent mass 2.6 x 3.9 cm and multiple additional smaller nodes. Also seen is a 2.3 x 2.9 cm mass lying above the bladder may represent a drop metastasis. - Repeat CT CAP 05/27/16 showed 1. There is a infiltrative submucosal mass roughly 3.2 cm in length by 3.2 cm transverse involving the proximal third portion of the duodenum resulting in a partial obstruction of the stomach and proximal duodenum. Lymphoma or other duodenal cancer might present this fashion. There is thickening of the mucosa in the cardia of the stomach of unknown significance. Endoscopy may be helpful in evaluation. 2. There is an infiltrative mass involving the cecum and ascending colon extending beyond the serosa into the adjacent mesentery with abnormal mesenteric lymph nodes medial to the ascending colon. These measure up to 1.2 cm. Additional abnormal retroperitoneal lymph nodes are noted as described above. 3. There is matting of small bowel loops medial to the ascending colon which are suspicious for carcinomatosis. 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 -- There are scattered intralymphatic tumor emboli within adjacent small intestinal villi. COMMENT: Findings are discussed Dr. Sean De on 05/30/2016 at 9:00 a.m. This tumor may represent a duodenal primary; however, because of the extensive lymphatic invasion, the possibility of metastatic carcinoma or direct extension into the duodenum from an extraduodenal site should also be considered. Immunoperoxidase stains are pending to further characterize the tumor and a final report will be issued following review of the immunohistochemical stains. - PT will likely need to be started on Folfox chemotherapy as an outpatient. Once the path is confirmed we will discuss the chemotherapy with him further - Port a cath was ordered in preparation for chemotherapy - Pt to have a duodenal stent place by Dr. De this to relieve his gastric outlet obstruction - CEA elevated at 13.1. Will continue to monitor this as patient starts chemotherapy - Elevated hematocrit likely secondary to dehydration, as acute onset in the setting of elevated Cr, BUN, continue to monitor - There is no role for surgery at this time Case was discussed with Dr. Byrne, Dr. De and the family who concur with the above plan Problems: Consultation Date/Type/Reason Admit Date/Time May 26, 2016 at 06:29 Initial Consult Date 05/26/16 Type of Consultation: Hematology/Oncology Referring Provider: SHANAE LEWIS MD 24 HR Interval Summary Free Text/Dictation The patient has no complaints today. NGT remains in place. Denies vomiting or abdominal pain. Exam/Review of Systems Vital Signs Vitals Vital Signs Date Time Temp Pulse Resp B/P Pulse Ox O2 Delivery O2 Flow Rate FiO2 06/01/16 07:55 97.4 104 16 120/84 98 Intake and Output 05/31/16 05/31/16 06/01/16 15:00 23:00 07:00 Intake Total 650 ml 750 ml 550 ml Output Total 600 ml 1600 ml Balance 50 ml -850 ml 550 ml Exam Constitutional: alert, frail, oriented Head: normocephalic Eyes: nl conjunctiva ENMT: other (NGT in place) Neck: non-tender, supple Cardiovascular: regular rate and rhythm Gastrointestinal: soft Musculoskeletal: nl extremities to inspection Results Result Diagram: 06/01/16 0535 06/01/16 0535 Results 24 hrs Laboratory Tests Test 06/01/16 05:35 White Blood Count 12.0 H Red Blood Count 6.10 Hemoglobin 18.5 H Hematocrit 54.5 H Mean Corpuscular Volume 89.3 Mean Corpuscular Hemoglobin 30.3 Mean Corpuscular Hemoglobin Concent 33.9 Red Cell Distribution Width 12.3 Platelet Count 323 Mean Platelet Volume 11.0 H Neutrophils % 75.0 Lymphocytes % 15.8 Monocytes % 8.4 Eosinophils % 0.1 Basophils % 0.2 Nucleated Red Blood Cells % 0.0 Neutrophils # 9.0 H Lymphocytes # 1.9 Monocytes # 1.0 H Eosinophils # 0.0 Basophils # 0.0 Nucleated Red Blood Cells # 0.0 Sodium Level 144 Potassium Level 3.8 Chloride Level 97 Carbon Dioxide Level 34 H Anion Gap 17 H Blood Urea Nitrogen 74 H Creatinine 1.43 H Glucose Level 177 Calcium Level 9.9 Medications Medications Current Medications Metoclopramide HCl (Reglan) 10 mg Q6H PRN IV NAUSEA AND/OR VOMITING Last administered on 05/28/16 19:55; Admin Dose 10 MG; Start 05/26/16 at 08:00 Acetaminophen (Tylenol Supp) 650 mg Q6H PRN [place] PAIN LEVEL 1-3 OR FEVER; Start 05/26/16 at 08:00 Morphine Sulfate 2 mg 2 mg Q4H PRN IV SEVERE PAIN LEVEL 7-10; Start 05/26/16 at 08:00 Dextrose/Sodium Chloride (D5-1/2ns) 1,000 ml @ 75 mls/hr [id number] IV Last administered on 06/01/16 00:41; Admin Dose 75 MLS/HR; Start 05/27/16 at 12:30 Ondansetron HCl (Zofran Inj) 4 mg Q6H PRN IV NAUSEA AND/OR VOMITING Last administered on 05/29/16 06:55; Admin Dose 4 MG; Start 05/29/16 at 00:00 Famotidine (Pepcid Iv) 20 mg BID IV Last administered on 06/01/16 08:20; Admin Dose 20 MG; Start 05/29/16 at 09:00 TODARBY MD Jun 01, 2016 08:54
--- NOTE | 2016-06-01 10:38 | PN ---
Date/Time of Note Date/Time of Note DATE: 06/01/16 TIME: 10:28 Assessment/Plan VTE Prophylaxis VTE Prophylaxis Intervention: SCD's Lines/Catheters IV [facility] Peripheral IV Urinary Cath still in place: No Assessment/Plan Chief Complaint/Hosp Course Assessment/Plan: 60 M with: 1. Duodenal mass - with approximately 2.6 x 3.9 cm size with periduodenal lymphadenopathy concerned about malignancy versus a metastatic cancer. Unfortunately path report shows a poorly differentiated adenocarcinoma. EGD earlier showed: Gastric outlet obstruction secondary to tumor invading the third part of the duodenum. There is also a 2.3 x 2.9 cm mass above the bladder , which may be a drop metastasis. - continue NG tube for now, for port-a cath per Heme/Onc now as well - for duodenal stent placement in 24 hrs by GI team. - f/u GI, Heme/Onc, surgery rec's, especially regarding chemo options (per discuss with them, may start in house vs outpt). - switch IVF's to D5NS sec to mild ARF. 2. Intractable abdominal pain - likely secondary to duodenal mass (see # 1) - continue current meds for control 3. History of distended stomach, likely secondary to possible obstruction from the mass. 4. GI ppx - H2 [place] Problems: Subjective 24 Hr Interval Summary Free Text/Dictation Pt could not get port a cath yesterday apparently, re-scheduled for placement today. Still with high output from NG tube. Exam/Review of Systems Vital Signs Vitals Vital Signs Date Time Temp Pulse Resp B/P Pulse Ox O2 Delivery O2 Flow Rate FiO2 06/01/16 07:55 97.4 104 16 120/84 98 Intake and Output 05/31/16 05/31/16 06/01/16 15:00 23:00 07:00 Intake Total 650 ml 750 ml 550 ml Output Total 600 ml 1600 ml Balance 50 ml -850 ml 550 ml Exam GENERAL: Awake, alert, in no distress, NG tube in place HEENT: Normal. Oropharynx clear. NECK: Supple, no JVD, no lymphadenopathy. LUNGS: Clear to auscultation. No crackles, no wheezes. HEART: S1, S2, with regular rhythm, no murmur. ABDOMEN: Soft, tender to palpation in the mid epigastric to mid umbilical area. No rebound, no guarding. Bowel sounds are present. EXTREMITIES: No clubbing, cyanosis, or edema. NEUROLOGICAL: Nonfocal, intact. PSYCHIATRIC: Appropriate affect and mood. Results Result Diagram: 06/01/16 0535 06/01/16 0535 Results 24 hrs Laboratory Tests Test 06/01/16 05:35 White Blood Count 12.0 H Red Blood Count 6.10 Hemoglobin 18.5 H Hematocrit 54.5 H Mean Corpuscular Volume 89.3 Mean Corpuscular Hemoglobin 30.3 Mean Corpuscular Hemoglobin Concent 33.9 Red Cell Distribution Width 12.3 Platelet Count 323 Mean Platelet Volume 11.0 H Neutrophils % 75.0 Lymphocytes % 15.8 Monocytes % 8.4 Eosinophils % 0.1 Basophils % 0.2 Nucleated Red Blood Cells % 0.0 Neutrophils # 9.0 H Lymphocytes # 1.9 Monocytes # 1.0 H Eosinophils # 0.0 Basophils # 0.0 Nucleated Red Blood Cells # 0.0 Sodium Level 144 Potassium Level 3.8 Chloride Level 97 Carbon Dioxide Level 34 H Anion Gap 17 H Blood Urea Nitrogen 74 H Creatinine 1.43 H Glucose Level 177 Calcium Level 9.9 Medications Medications Current Medications Metoclopramide HCl (Reglan) 10 mg Q6H PRN IV NAUSEA AND/OR VOMITING Last administered on 05/28/16 19:55; Admin Dose 10 MG; Start 05/26/16 at 08:00 Acetaminophen (Tylenol Supp) 650 mg Q6H PRN [place] PAIN LEVEL 1-3 OR FEVER; Start 05/26/16 at 08:00 Morphine Sulfate 2 mg 2 mg Q4H PRN IV SEVERE PAIN LEVEL 7-10; Start 05/26/16 at 08:00 Dextrose/Sodium Chloride (D5-1/2ns) 1,000 ml @ 75 mls/hr [id number] IV Last administered on 06/01/16 00:41; Admin Dose 75 MLS/HR; Start 05/27/16 at 12:30 Ondansetron HCl (Zofran Inj) 4 mg Q6H PRN IV NAUSEA AND/OR VOMITING Last administered on 05/29/16 06:55; Admin Dose 4 MG; Start 05/29/16 at 00:00 Famotidine (Pepcid Iv) 20 mg BID IV Last administered on 06/01/16 08:20; Admin Dose 20 MG; Start 05/29/16 at 09:00 NEL DEL ANGEL Jun 01, 2016 10:37
[2016-06-01] MEDS: DEXTROSE 5%-0.9% NACL 1,000 ML IV SCH ×2 (11:39→23:50)
[2016-06-01 11:53] LABS: PT RATIO 1.1
[2016-06-01 12:04] LABS: PARTIAL THROMBOPLASTIN TIME 27.6 Sec (25.0-35.0)
[2016-06-01 12:47] LABS: INR 1.12; PROTIME 14.4 Sec (12.2-14.2)
[2016-06-01] MEDS ORDERED: POLYMYXIN/BACITRACIN 1L IRRIG IRR SCH (14:30)
[2016-06-01] MEDS ORDERED: LIDOCAINE 1%/EPI (MDV) 20 ML INJ ONE (14:50)
[2016-06-01] MEDS ORDERED: HEPARIN 1000 UNITS/ML 10 ML INJ ONE (14:53)
[2016-06-01] MEDS ORDERED: MIDAZOLAM 1 MG/ML 2 ML INJ ONE (15:52)
[2016-06-01] MEDS ORDERED: CEFAZOLIN 1 GM/50 ML (PMX) 50 ML IVPB ONE (15:52)
[2016-06-01] MEDS ORDERED: FENTAnyl 50 MCG/ML VIAL ONE (15:52)
[2016-06-01] MEDS ORDERED: DIPHENHYDRAMINE 50 MG INJ ONE (15:52)
--- NOTE | 2016-06-01 17:32 | CONS ---
Date/Time of Note Date/Time of Note DATE: 06/01/16 TIME: 17:32 Assessment/Plan Assessment/Plan Additional Assessment/Plan Additional Assessment/Plan IMPRESSION: 1. 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 Lymphadenopathy. 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 4. mass caecum extending in to ascending colon 5. CEA 13. 6. BPH Plan Duodenal stent tomorrow Chemotherapy discussed with pt and family member face to face for 20 mnts. pt. has agreed for stent Consultation Date/Type/Reason Admit Date/Time May 26, 2016 at 06:29 Initial Consult Date 05/26/16 Type of Consultation: Hematology/Oncology Referring Provider: SHANAE LEWIS MD 24 HR Interval Summary Constitutional: no complaints Exam/Review of Systems Vital Signs Vitals Vital Signs Date Time Temp Pulse Resp B/P Pulse Ox O2 Delivery O2 Flow Rate FiO2 06/01/16 07:55 97.4 104 16 120/84 98 Intake and Output 05/31/16 05/31/16 06/01/16 15:00 23:00 07:00 Intake Total 650 ml 750 ml 550 ml Output Total 600 ml 1600 ml Balance 50 ml -850 ml 550 ml Exam Constitutional: alert, oriented, well developed Psych: nl mood/affect, no complaints Head: atraumatic, normocephalic Eyes: EOMI, PERRL, nl conjunctiva, nl lids, nl sclera ENMT: nl external ears & nose, nl lips & teeth, nl nasal mucosa & septum Neck: non-tender, supple Respiratory: clear to auscultation, normal air movement Cardiovascular: nl pulses, regular rate and rhythm Gastrointestinal: nl liver, spleen, non-tender, soft Musculoskeletal: nl extremities to inspection, nl gait and stance Extremities: normal pulses 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, nl mental status, nl speech, nl strength Skin: nl turgor, No rash or lesions Lymph: nl lymph nodes Results Result Diagram: 06/01/16 0535 06/01/16 0535 Results 24 hrs Laboratory Tests Test 06/01/16 05:35 06/01/16 11:10 White Blood Count 12.0 H Red Blood Count 6.10 Hemoglobin 18.5 H Hematocrit 54.5 H Mean Corpuscular Volume 89.3 Mean Corpuscular Hemoglobin 30.3 Mean Corpuscular Hemoglobin Concent 33.9 Red Cell Distribution Width 12.3 Platelet Count 323 Mean Platelet Volume 11.0 H Neutrophils % 75.0 Lymphocytes % 15.8 Monocytes % 8.4 Eosinophils % 0.1 Basophils % 0.2 Nucleated Red Blood Cells % 0.0 Neutrophils # 9.0 H Lymphocytes # 1.9 Monocytes # 1.0 H Eosinophils # 0.0 Basophils # 0.0 Nucleated Red Blood Cells # 0.0 Sodium Level 144 Potassium Level 3.8 Chloride Level 97 Carbon Dioxide Level 34 H Anion Gap 17 H Blood Urea Nitrogen 74 H Creatinine 1.43 H Glucose Level 177 Calcium Level 9.9 Prothrombin Time 14.4 H Prothrombin Time Ratio 1.1 INR International Normalized Ratio 1.12 Activated Partial Thromboplast Time 27.6 Medications Medications Current Medications Metoclopramide HCl (Reglan) 10 mg Q6H PRN IV NAUSEA AND/OR VOMITING Last administered on 05/28/16 19:55; Admin Dose 10 MG; Start 05/26/16 at 08:00 Acetaminophen (Tylenol Supp) 650 mg Q6H PRN [place] PAIN LEVEL 1-3 OR FEVER; Start 05/26/16 at 08:00 Morphine Sulfate (morphine) 2 mg Q4H PRN IV SEVERE PAIN LEVEL 7-10; Start 05/26 at 08:00 Ondansetron HCl (Zofran Inj) 4 mg Q6H PRN IV NAUSEA AND/OR VOMITING Last administered on 05/29/16 06:55; Admin Dose 4 MG; Start 05/29/16 at 00:00 Famotidine 20 mg 20 mg BID IV Last administered on 06/01/16 08:20; Admin Dose 20 MG; Start 05/29/16 at 09:00 Dextrose/Sodium Chloride (D5-NS) 1,000 ml @ 75 mls/hr [id number] IV Last administered on 06/01/16 11:39; Admin Dose 75 MLS/HR; Start 06/01/16 at 10:30 Bacitracin/ Polymyxin B Sulfate (Pb Solution) 250 ml RADIOLOGY IRR ; Start 06/01 at 14:30; Stop 06/01/16 at 19:00 TIANNA SALINAS MD Jun 01, 2016 17:32
--- NOTE | 2016-06-01 18:02 | PN ---
Date/Time of Note Date/Time of Note DATE: 06/01/16 TIME: 17:58 Assessment/Plan Lines/Catheters IV Catheter Type (from [facility]): Saline Lock [place] in Place (from [facility]): No Assessment/Plan Assessment/Plan [facility] Progress Note Date of Service: 06/01/16 Today's Impression & Plan: Overall stable with gastric outlet obstruction due to malignancy (? primary duodenal metastatic to colon vs. reverse). Important to distinguish since would make a difference in terms of management and prognosis. Awaiting further multidisciplinary discussions and colonoscopy findings. After discussions with Dr. De, we believe we will likely be able to perform duodenal stenting. Discussed with patient and family ( and daughter) and answered all questions. With above assessment, I've recommended the following for today: 1. Cont current cares 2. Keep NPO 3. Multidisciplinary discussion 4. Duodenal stenting 5. Once tolerating PO and GOO resolved, to do prep and colonoscopy 6. Systemic chemo once above staging complete Thank you again for your great care of this very pleasant patient and wonderful family. If there are any questions, please feel free to call me at [phone]. TOTAL VISIT TIME: 20 minutes of which more than half was spent in [id number] discussion with the patient, possibly including family, as well as coordination of care between multiple physicians and providers. Disclaimer: Inadvertent spelling or grammatical errors are likely due to EHR/ dictation software use and do not reflect on the overall quality of patient care. Updated Clinical Summary: The patient is a very pleasant 60-year-old gentleman with comorbidity of BMI 25.3 and no other major known medical issues, who was transferred from [facility] to [facility] due to insurance capitation on 05/26/2016 after he presented there with abdominal pain and nausea and vomiting. He has had a workup that included laboratory values showing normal CBC and electrolytes, but elevated CEA at 13.1, and abdominal and pelvic CT scan that shows an infiltrative submucosal mass roughly 3.2 cm in length x 3.2 cm transverse involving the proximal third portion of the duodenum , resulting in a partial obstruction of the stomach and proximal duodenum with differential including lymphomatoid and duodenal cancer being considered. The cardia of the stomach is also somewhat thickened. There was an infiltrative mass involving the cecum and ascending colon extending beyond the serosa into the adjacent mesentery with abnormal mesenteric lymph nodes medial to the ascending colon. The largest was 1.2 cm. There was also additional abnormal retroperitoneal lymph nodes. There was matting of small bowel loops medial to the ascending colon which were suspicious for carcinomatosis and evidence of bilateral inguinal hernias, the left being larger than the right. Prostate was enlarged. There was spondylosis of the thoracic and lumbosacral spine and calcified mediastinal lymph nodes in the chest. This was all on 05/27/2016. The patient also reportedly underwent upper endoscopy, although I do not have access to the report. COMORBIDITIES: 1. BMI 25.3. 2. Duodenal mass with ascending colon mass and a mass in between the 2 in addition to lymphadenopathy and mass in the pelvis as well as retroperitoneal lymph nodes suspicious for metastatic malignancy. 3. Bilateral inguinal hernias. 4. Enlarged prostate gland. 5. Spondylosis of the thoracic and lumbosacral spine. 6. Calcified mediastinal lymph nodes. Subjective: No major events or complaints; no abd pain and under control with medications; + n/v and - d; no sob or cp; - flatus; - BM; + activity Objective: Vitals: See below Exam: GENERAL: On exam, the patient was laying in bed and appeared to be comfortable and in no acute distress. ABDOMEN: Soft, nontender and nondistended. There are no peritoneal signs or guarding. NG bilious and about 300-400 cc's. SKIN: Skin appears to be pink and feels warm to touch. NEUROLOGIC: Patient is awake, alert, and follows commands appropriately. Exam/Review of Systems Vital Signs Vitals Vital Signs Date Time Temp Pulse Resp B/P Pulse Ox O2 Delivery O2 Flow Rate FiO2 06/01/16 07:55 97.4 104 16 120/84 98 Intake and Output 05/31/16 05/31/16 06/01/16 15:00 23:00 07:00 Intake Total 650 ml 750 ml 550 ml Output Total 600 ml 1600 ml Balance 50 ml -850 ml 550 ml Results Result Diagram: 06/01/16 0535 06/01/16 0535 RADHA PAGE M.D. Jun 01, 2016 18:02
--- NOTE | 2016-06-01 19:00 | RADRPT ---
PROCEDURE: RIGHT INTERNAL JUGULAR PORT PLACEMENT CLINICAL INDICATION: IV access for chemotherapy FLUOROSCOPY TIME: 0.1 minute TECHNIQUE: The procedure, its potential risks, benefits and alternatives were explained. Risks, including but n ot limited to pain, bleeding, infection, thrombosis, embolism and arrhythmia were discussed and und erstood. Following this discussion with the patient, informed consent was obtained. The right internal jugular vein was imaged with ultrasound and was shown to be compressible, with no evidence of thrombus. An image of this vein was obtained and saved to the PACS system. The neck and chest wall were scrubbed, draped and prepped in a sterile manner. The procedure was ca rried out under aseptic conditions. 1% lidocaine with epinephrine was utilized for local anesthesia . Following the standard prep, and under ultrasound guidance, the right internal jugular vein was punctured using anterior single wall micropuncture technique, and a micropuncture catheter was adva nced into the superior vena cava. Following this, an appropriate site on the anterior chest wall w as selected for port placement. The skin over the port placement site was then anesthetized. The s kin was then incised. Deep anesthesia was then given. Using blunt dissection technique, a pocket w as created in the subcutaneous soft tissue. Following this, a tract connecting the port pocket with the neck entry site was anesthetized. A 6 Sudanese catheter was then pulled through the subcutaneous tract. Exchange of the micropuncture catheter was then done for a peel-away sheath. The catheter was then advanced through the sheath, the sheath was removed and the catheter was positioned with it s tip at the cavoatrial junction. Fluoroscopy was utilized to guide placement of the catheter. An im age of its final position was saved to the PACS system. The proximal end of the catheter was then tr immed and attached to a power injectable dual lumen chest wall port. The catheter and the port were then heparinized. The port was then placed within the pocket blank. The wound was then irrigated, and was dried. The wound was then closed using interrupted 3-0 Vicryl sutures, and a running subde rmal 4-0 Vicryl suture. Then over this, Dermabond was applied. A 4-0 Vicryl suture was placed to c lose the neck entry site, over which Dermabond was applied. The patient tolerated the procedure well . COMPARISON: none FINDINGS: as above. IMPRESSION: Placement of power injectable single lumen right chest wall port, as above. The catheter is ready for use. RPTAT: EE Ronaldo Mclean, Physician Date Time Electronically viewed and signed by Ronaldo Mclean, Physician on 06/01/2016 19:00 /
--- NOTE | 2016-06-01 21:31 | PN ---
Date/Time of Note Date/Time of Note DATE: 06/01/16 TIME: 21:30 Assessment/Plan Lines/Catheters IV Catheter Type (from [facility]): Saline Lock [place] in Place (from [facility]): No Assessment/Plan Chief Complaint/Hosp Course 1. 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 Santoyo > if not successful will need duodenal bypass -Oncology f/u 2. Nausea/vomiting secondary to outlet obstruction as above -npo/ngt -as above 3. Steatosis -Eventual nutrition and lifestyle optimization 4. Weight loss probably secondary to above -As above Thank you, Problems: Subjective 24 Hr Interval Summary Leukocytosis. No fevers or chills. No chest pain or shortness of breath. Nausea and vomiting. No cough. No seizure. No headache, visual, or neurologic changes. No dysuria. EGD and stenting being planned by Dr. De. Exam/Review of Systems Vital Signs Vitals Vital Signs Date Time Temp Pulse Resp B/P Pulse Ox O2 Delivery O2 Flow Rate FiO2 06/01/16 20:27 98.1 101 19 109/75 98 Intake and Output 05/31/16 05/31/16 06/01/16 15:00 23:00 07:00 Intake Total 650 ml 750 ml 550 ml Output Total 600 ml 1600 ml Balance 50 ml -850 ml 550 ml Exam Free Text/Dictation Constitutional: alert, oriented, No distress Psych: nl mood/affect, No anxiety, No confusion Head: atraumatic, normocephalic Eyes: EOMI, PERRL, nl conjunctiva, No icteric ENMT: mucosa pink and moist, nl external ears & nose, nl lips & teeth Neck: non-tender, supple, No jvd, No masses Respiratory: normal air movement, No congested cough, No labored breathing Cardiovascular: regular rate and rhythm, No edema Gastrointestinal: non-tender, soft, No distended, No rebound or guarding Genitourinary - Male: nl scrotum Musculoskeletal: nl extremities to inspection, nl gait and stance, No joint tenderness Extremities: normal pulses, No calf tenderness, No cyanosis Neurological: nl mental status, nl speech, nl strength Skin: nl turgor, No diaphoresis, No rash or lesions Lymph: No nl lymph nodes (Inguinal) Results Result Diagram: 06/01/16 0535 06/01/16 0535 DIAMOND FITZGERALD MD Jun 01, 2016 21:31
[2016-06-02] MEDS: DEXTROSE 5%-0.9% NACL 1,000 ML IV SCH (03:22)
[2016-06-02 06:05] LABS: ADD SCAN DIFF NO
[2016-06-02 06:13] LABS: BASOPHILS % 0.1 % (0.0-2.0); EOSINOPHILS % 0.1 % (0.0-7.0); HEMATOCRIT 53.8 % (42.0-52.0); HEMOGLOBIN 17.8 g/dl (14.0-18.0); LYMPHOCYTES # 1.6 10^3/ul (0.8-2.9); LYMPHOCYTES % 13.9 % (15.0-51.0); MEAN CORPUSCULAR HEMOGLOBIN 30.2 pg (29.0-33.0); MEAN CORPUSCULAR HGB CONC 33.1 g/dl (32.0-37.0); MEAN CORPUSCULAR VOLUME 91.2 fl (82.0-101.0); MEAN PLATELET VOLUME 11.3 fl (7.4-10.4); MONOCYTE # 1.1 10^3/ul (0.3-0.9); MONOCYTES % 9.6 % (0.0-11.0); NEUTROPHIL # 8.6 10^3/ul (1.6-7.5); NEUTROPHILS % 75.9 % (39.0-77.0); PLATELET COUNT 303 10^3/UL (140-415); RED CELL DISTRIBUTION WIDTH 12.7 % (11.5-14.5); WHITE BLOOD COUNT 11.4 10^3/ul (4.8-10.8)
[2016-06-02 06:38] LABS: POTASSIUM 3.7 mmol/L (3.5-5.1)
[2016-06-02 06:40] LABS: CREATININE 1.52 mg/dl (0.61-1.24)
[2016-06-02 06:41] LABS: CALCIUM 9.5 mg/dl (8.4-10.2)
[2016-06-02 07:55] VITALS: BP 128/86; RESP 16
[2016-06-02] MEDS: FAMOTIDINE 20 MG INJ IV SCH ×2 (08:18→20:57)
--- NOTE | 2016-06-02 09:08 | CONS ---
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 primary duodenal metastatic to colon vs. reverse). Per Dr. Aguilera, plan for duodenal stenting today. Once tolerating PO and GOO resolved, plan for prep and colonoscopy and systemic chemo once above staging complete - CT A/P at [place] demonstrated distended stomach secondary to a duodenal mass causing obstruction at the third portion of the duodenum. Pt is also noted to have periduodenal lymphadenopathy with largest confluent mass 2.6 x 3.9 cm and multiple additional smaller nodes. Also seen is a 2.3 x 2.9 cm mass lying above the bladder may represent a drop metastasis. - Repeat CT CAP 05/27/16 showed 1. There is a infiltrative submucosal mass roughly 3.2 cm in length by 3.2 cm transverse involving the proximal third portion of the duodenum resulting in a partial obstruction of the stomach and proximal duodenum. Lymphoma or other duodenal cancer might present this fashion. There is thickening of the mucosa in the cardia of the stomach of unknown significance. Endoscopy may be helpful in evaluation. 2. There is an infiltrative mass involving the cecum and ascending colon extending beyond the serosa into the adjacent mesentery with abnormal mesenteric lymph nodes medial to the ascending colon. These measure up to 1.2 cm. Additional abnormal retroperitoneal lymph nodes are noted as described above. 3. There is matting of small bowel loops medial to the ascending colon which are suspicious for carcinomatosis. 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 -- There are scattered intralymphatic tumor emboli within adjacent small intestinal villi. COMMENT: Findings are discussed Dr. Sean De on 05/30/2016 at 9:00 a.m. This tumor may represent a duodenal primary; however, because of the extensive lymphatic invasion, the possibility of metastatic carcinoma or direct extension into the duodenum from an extraduodenal site should also be considered. Immunoperoxidase stains are pending to further characterize the tumor and a final report will be issued following review of the immunohistochemical stains. - PT will likely need to be started on Folfox chemotherapy as an outpatient or inpatient. Once tolerating PO and GOO resolved, plan for prep and colonoscopy followed by systemic chemo once above staging complete - Port a cath was placed 06/01/16 in preparation for chemotherapy - Pt to have a duodenal stent place by Dr. De today to relieve his gastric outlet obstruction. - CEA elevated at 13.1. Will continue to monitor this as patient starts chemotherapy - Elevated hematocrit likely secondary to dehydration, as acute onset in the setting of elevated Cr, BUN, Na, continue to monitor - There is no role for surgery at this time Case was discussed with Dr. Byrne, Dr. De and the family who concur with the above plan Problems: Consultation Date/Type/Reason Admit Date/Time May 26, 2016 at 06:29 Initial Consult Date 05/26/16 Type of Consultation: Hematology/Oncology Referring Provider: SHANAE LEWIS MD 24 HR Interval Summary Free Text/Dictation Patient feeling well, denies N/V/abd pain. Plan for duodenal stent today. Exam/Review of Systems Vital Signs Vitals Vital Signs Date Time Temp Pulse Resp B/P Pulse Ox O2 Delivery O2 Flow Rate FiO2 06/02/16 07:55 97.6 93 16 128/86 98 Intake and Output 06/01/16 06/01/16 06/02/16 15:00 23:00 07:00 Intake Total 450 ml 300 ml 775 ml Output Total 1600 ml 620 ml Balance 450 ml -1300 ml 155 ml Exam Constitutional: alert, frail, oriented Head: normocephalic Eyes: nl conjunctiva ENMT: other (NGT in place) Neck: non-tender, supple Cardiovascular: regular rate and rhythm Gastrointestinal: soft Musculoskeletal: nl extremities to inspection Results Result Diagram: 06/02/16 0530 06/02/16 0530 Results 24 hrs Laboratory Tests Test 06/01/16 11:10 06/02/16 05:30 Prothrombin Time 14.4 H Prothrombin Time Ratio 1.1 INR International Normalized Ratio 1.12 Activated Partial Thromboplast Time 27.6 White Blood Count 11.4 H Red Blood Count 5.90 Hemoglobin 17.8 Hematocrit 53.8 H Mean Corpuscular Volume 91.2 Mean Corpuscular Hemoglobin 30.2 Mean Corpuscular Hemoglobin Concent 33.1 Red Cell Distribution Width 12.7 Platelet Count 303 Mean Platelet Volume 11.3 H Neutrophils % 75.9 Lymphocytes % 13.9 L Monocytes % 9.6 Eosinophils % 0.1 Basophils % 0.1 Nucleated Red Blood Cells % 0.0 Neutrophils # 8.6 H Lymphocytes # 1.6 Monocytes # 1.1 H Eosinophils # 0.0 Basophils # 0.0 Nucleated Red Blood Cells # 0.0 Sodium Level 148 H Potassium Level 3.7 Chloride Level 103 Carbon Dioxide Level 33 H Anion Gap 16 Blood Urea Nitrogen 80 H Creatinine 1.52 H Glucose Level 175 Calcium Level 9.5 Medications Medications Current Medications Metoclopramide HCl (Reglan) 10 mg Q6H PRN IV NAUSEA AND/OR VOMITING Last administered on 05/28/16 19:55; Admin Dose 10 MG; Start 05/26/16 at 08:00 Acetaminophen (Tylenol Supp) 650 mg Q6H PRN [place] PAIN LEVEL 1-3 OR FEVER; Start 05/26/16 at 08:00 Morphine Sulfate (morphine) 2 mg Q4H PRN IV SEVERE PAIN LEVEL 7-10; Start 05/26 at 08:00 Ondansetron HCl (Zofran Inj) 4 mg Q6H PRN IV NAUSEA AND/OR VOMITING Last administered on 05/29/16 06:55; Admin Dose 4 MG; Start 05/29/16 at 00:00 Famotidine 20 mg 20 mg BID IV Last administered on 06/02/16 08:18; Admin Dose 20 MG; Start 05/29/16 at 09:00 Dextrose/Sodium Chloride (D5-NS) 1,000 ml @ 75 mls/hr [id number] IV Last administered on 06/02/16 03:22; Admin Dose 75 MLS/HR; Start 06/01/16 at 10:30 DARBY KNOWLES MD Jun 02, 2016 09:08
--- NOTE | 2016-06-02 10:26 | PN ---
Date/Time of Note Date/Time of Note DATE: 06/02/16 TIME: 10:19 Assessment/Plan VTE Prophylaxis VTE Prophylaxis Intervention: SCD's Lines/Catheters IV Catheter Type (from [facility]): Saline Lock Urinary Cath still in place: No Assessment/Plan Chief Complaint/Hosp Course Assessment/Plan: 60 M with: 1. Duodenal mass - with approximately 2.6 x 3.9 cm size with periduodenal lymphadenopathy concerned about malignancy versus a metastatic cancer. Unfortunately path report shows a poorly differentiated adenocarcinoma. EGD earlier showed: Gastric outlet obstruction secondary to tumor invading the third part of the duodenum. There is also a 2.3 x 2.9 cm mass above the bladder , which may be a drop metastasis. - continue NG tube for now, port-a cath placed - for duodenal stent placement today by GI - f/u GI, Heme/Onc, surgery rec's, especially regarding chemo options (per discuss with them, may start in house vs outpt). - D5W IVF's now for mild hypernatremia and mild ARF. 2. Intractable abdominal pain - likely secondary to duodenal mass (see # 1) - continue current meds for control 3. History of distended stomach, likely secondary to possible obstruction from the mass. 4. GI ppx - H2 [place] Problems: Subjective 24 Hr Interval Summary Free Text/Dictation Pt had port cath placement yesterday, denies abd pain, no n/v. Awaiting EGD for stent placement later today. Exam/Review of Systems Vital Signs Vitals Vital Signs Date Time Temp Pulse Resp B/P Pulse Ox O2 Delivery O2 Flow Rate FiO2 06/02/16 07:55 97.6 93 16 128/86 98 Intake and Output 06/01/16 06/01/16 06/02/16 15:00 23:00 07:00 Intake Total 450 ml 300 ml 775 ml Output Total 1600 ml 620 ml Balance 450 ml -1300 ml 155 ml Exam GENERAL: Awake, alert, in no distress, NG tube in place HEENT: Normal. Oropharynx clear. NECK: Supple, no JVD, no lymphadenopathy. LUNGS: Clear to auscultation. No crackles, no wheezes. HEART: S1, S2, with regular rhythm, no murmur. ABDOMEN: Soft, tender to palpation in the mid epigastric to mid umbilical area. No rebound, no guarding. Bowel sounds are present. EXTREMITIES: No clubbing, cyanosis, or edema. NEUROLOGICAL: Nonfocal, intact. PSYCHIATRIC: Appropriate affect and mood. Results Result Diagram: 06/02/16 0530 06/02/16 0530 Results 24 hrs Laboratory Tests Test 06/01/16 11:10 06/02/16 05:30 Prothrombin Time 14.4 H Prothrombin Time Ratio 1.1 INR International Normalized Ratio 1.12 Activated Partial Thromboplast Time 27.6 White Blood Count 11.4 H Red Blood Count 5.90 Hemoglobin 17.8 Hematocrit 53.8 H Mean Corpuscular Volume 91.2 Mean Corpuscular Hemoglobin 30.2 Mean Corpuscular Hemoglobin Concent 33.1 Red Cell Distribution Width 12.7 Platelet Count 303 Mean Platelet Volume 11.3 H Neutrophils % 75.9 Lymphocytes % 13.9 L Monocytes % 9.6 Eosinophils % 0.1 Basophils % 0.1 Nucleated Red Blood Cells % 0.0 Neutrophils # 8.6 H Lymphocytes # 1.6 Monocytes # 1.1 H Eosinophils # 0.0 Basophils # 0.0 Nucleated Red Blood Cells # 0.0 Sodium Level 148 H Potassium Level 3.7 Chloride Level 103 Carbon Dioxide Level 33 H Anion Gap 16 Blood Urea Nitrogen 80 H Creatinine 1.52 H Glucose Level 175 Calcium Level 9.5 Medications Medications Current Medications Metoclopramide HCl (Reglan) 10 mg Q6H PRN IV NAUSEA AND/OR VOMITING Last administered on 05/28/16 19:55; Admin Dose 10 MG; Start 05/26/16 at 08:00 Acetaminophen (Tylenol Supp) 650 mg Q6H PRN [place] PAIN LEVEL 1-3 OR FEVER; Start 05/26/16 at 08:00 Morphine Sulfate (morphine) 2 mg Q4H PRN IV SEVERE PAIN LEVEL 7-10; Start 05/26 at 08:00 Ondansetron HCl (Zofran Inj) 4 mg Q6H PRN IV NAUSEA AND/OR VOMITING Last administered on 05/29/16 06:55; Admin Dose 4 MG; Start 05/29/16 at 00:00 Famotidine 20 mg 20 mg BID IV Last administered on 06/02/16 08:18; Admin Dose 20 MG; Start 05/29/16 at 09:00 Dextrose (D5W) 1,000 ml @ 75 mls/hr [id number] IV ; Start 06/02/16 at 10:30; Status NEL FINNEY Jun 02, 2016 10:26
--- NOTE | 2016-06-02 10:32 | RADRPT ---
PROCEDURE: ULTRASOUND-GUIDED VASCULAR ACCESS CLINICAL INDICATION: Port-A-Cath placement TECHNIQUE: Informed consent was obtained from the patient after a discussion of the risks, benefit s, and alternatives of the procedure. Risks include, but are not limited to bleeding and infection. The right internal jugular vein was found to be patent and compressible with dumont scale and power D oppler. A picture of it was saved to the PACS. 1% lidocaine was utilized for anesthesia. Under di rect ultrasound guidance, a 21-gauge needle was advanced into the right internal jugular vein. A wi re was advanced through the micropuncture needle. The micropuncture needle was then removed over th e wire and a 5-Chinese catheter was advanced over the wire. COMPARISON: None. FINDINGS: Patent and compressible right internal jugular vein. IMPRESSION: Ultrasound guided vascular access for placement of a Port-A-Cath. RPTAT: EE Physician Iveth Date Time Electronically viewed and signed by Physician Iveth on 06/02/2016 10:32 /
[2016-06-02] MEDS: DEXTROSE 5% 1,000 ML IV SCH ×2 (11:04→20:54)
--- NOTE | 2016-06-02 11:36 | PN ---
Date/Time of Note Date/Time of Note DATE: 06/02/16 TIME: 11:33 Assessment/Plan Lines/Catheters IV Catheter Type (from [facility]): Saline Lock [place] in Place (from [facility]): No Assessment/Plan Chief Complaint/Hosp Course 1. 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 Santoyo > if not successful will need duodenal bypass -Oncology f/u 2. Nausea/vomiting secondary to outlet obstruction as above -npo/ngt -as above 3. Steatosis -Eventual nutrition and lifestyle optimization 4. Weight loss probably secondary to above -As above Thank you, Problems: Subjective 24 Hr Interval Summary Leukocytosis. No fevers or chills. No chest pain or shortness of breath. No vomiting. Nausea improved. No cough. No seizure. No headache, visual, or neurologic changes. No dysuria. EGD and stenting pending by Dr. De. Exam/Review of Systems Vital Signs Vitals Vital Signs Date Time Temp Pulse Resp B/P Pulse Ox O2 Delivery O2 Flow Rate FiO2 06/02/16 07:55 97.6 93 16 128/86 98 Intake and Output 06/01/16 06/01/16 06/02/16 15:00 23:00 07:00 Intake Total 450 ml 300 ml 775 ml Output Total 1600 ml 620 ml Balance 450 ml -1300 ml 155 ml Exam Free Text/Dictation Constitutional: alert, oriented, No distress Psych: nl mood/affect, No anxiety, No confusion Head: atraumatic, normocephalic Eyes: EOMI, PERRL, nl conjunctiva, No icteric ENMT: mucosa pink and moist, nl external ears & nose, nl lips & teeth Neck: non-tender, supple, No jvd, No masses Respiratory: normal air movement, No congested cough, No labored breathing Cardiovascular: regular rate and rhythm, No edema Gastrointestinal: non-tender, soft, No distended, No rebound or guarding Genitourinary - Male: nl scrotum Musculoskeletal: nl extremities to inspection, nl gait and stance, No joint tenderness Extremities: normal pulses, No calf tenderness, No cyanosis Neurological: nl mental status, nl speech, nl strength Skin: nl turgor, No diaphoresis, No rash or lesions Lymph: No nl lymph nodes (Inguinal) Results Result Diagram: 06/02/16 0530 06/02/16 0530 DIAMOND FITZGERALD MD Jun 02, 2016 11:36
--- NOTE | 2016-06-02 11:49 | HPN ---
Date/Time of Note Date/Time of Note DATE: 06/02/16 TIME: 11:48 Interval H&P Admission Note Pt. seen H&P reviewed: No system changes TIANNA SALINAS MD Jun 02, 2016 11:49
[2016-06-02] MEDS ORDERED: PROPOFOL 20 ML ONE ×2 (12:11→12:53)
[2016-06-02 13:05] VITALS: BP 117/94; PULSE 80; RESP 17
[2016-06-02 13:10] VITALS: BP 132/95; PULSE 78; RESP 20
[2016-06-02 13:15] VITALS: BP 126/92; PULSE 76; RESP 19
[2016-06-02 13:20] VITALS: BP 112/94; PULSE 82; RESP 15
--- NOTE | 2016-06-02 13:39 | RADRPT ---
PROCEDURE: Intraoperative imaging for duodenal stent placement with fluoroscopy. CLINICAL INDICATION: Duodenal mass. Intraoperative. TECHNIQUE: 5 images of the right upper quadrant of the abdomen were obtained in the operating room with an image intensifier. No radiologist was in attendance. 17.2 seconds of fluoroscopy time was used. COMPARISON: CT scan of the abdomen and pelvis dated 05/27/2016. FINDINGS: Images demonstrate the endoscope in position. A guide wire was passed through the stenotic region o f the duodenum and a stent was placed. IMPRESSION: 1. Duodenal stent placement as described above. RPTAT: QQ .Naldo Oneal MD, Date Time Electronically viewed and signed by .Naldo Oneal MD, on 06/02/2016 13:39 .R/
[2016-06-02 20:46] VITALS: BP 130/85; RESP 20
[2016-06-03 05:44] LABS: ADD SCAN DIFF NO
[2016-06-03 06:03] LABS: BASOPHILS % 0.1 % (0.0-2.0); EOSINOPHILS # 0.1 10^3/ul (0.0-0.5); EOSINOPHILS % 0.5 % (0.0-7.0); HEMATOCRIT 49.4 % (42.0-52.0); HEMOGLOBIN 16.1 g/dl (14.0-18.0); LYMPHOCYTES # 1.4 10^3/ul (0.8-2.9); LYMPHOCYTES % 12.7 % (15.0-51.0); MEAN CORPUSCULAR HEMOGLOBIN 29.7 pg (29.0-33.0); MEAN CORPUSCULAR HGB CONC 32.6 g/dl (32.0-37.0); MEAN CORPUSCULAR VOLUME 91.1 fl (82.0-101.0); MEAN PLATELET VOLUME 11.4 fl (7.4-10.4); MONOCYTE # 0.8 10^3/ul (0.3-0.9); MONOCYTES % 6.9 % (0.0-11.0); NEUTROPHIL # 8.8 10^3/ul (1.6-7.5); NEUTROPHILS % 79.3 % (39.0-77.0); PLATELET COUNT 225 10^3/UL (140-415); RED BLOOD COUNT 5.42 10^6/ul (4.70-6.10); WHITE BLOOD COUNT 11.1 10^3/ul (4.8-10.8)
[2016-06-03 06:06] LABS: POTASSIUM 3.8 mmol/L (3.5-5.1)
[2016-06-03 06:09] LABS: CREATININE 1.12 mg/dl (0.61-1.24)
[2016-06-03 06:10] LABS: CALCIUM 8.6 mg/dl (8.4-10.2)
--- NOTE | 2016-06-03 06:47 | GILP ---
DATE OF PROCEDURE: PROCEDURE: Esophagogastroduodenoscopy and placement of duodenal stent, 9 cm in length. INDICATION: The patient is a 60-year-old male with gastric outlet obstruction. He had a CAT scan w hich showed a tumor in the second to third part of the duodenum. He had an EGD done by me. The bio psy came as poorly differentiated adenocarcinoma, and obstruction also was confirmed on the upper GI series. He is undergoing this procedure for placement of stent for gastric outlet obstruction so t hat we can nutritionally support this patient. The risks of the procedure, related and unrelated co mplications, anesthetic risks, and alternatives were thoroughly discussed. All the complications we re explained with the help of staff nuclear weapons officer both to the patient and also son-in-law who spoke [place]. They understood, agreed, and consented for it. DESCRIPTION OF PROCEDURE: The patient was brought to OR room #1, sedated by Dr. Sy, placed in the left recumbent position. Initially, I passed a ____ scope. The obstruction and the tumor were iden tified at the junction of the second and third part. I managed to pass the scope beyond the obstruc ting lesion which was pretty tight, and once the ____ scope was beyond the obstructive lesion, I pas sed a guidewire deeper inside. ____ scope was removed. The adult colonoscope was loaded with the s tent, and the guidewire was passed through the tip of the stent until it emerged through the other e nd of the stent. The colonoscope was passed over the guidewire, making sure that the guidewire had remained straight throughout the procedure, and the stent was gradually advanced. When the tip of t he scope was near the proximal end of the tumor, the stent was advanced slowly until it went beyond the distal part and successfully deployed under the direct guidance of the scope. The position of t he stent was well confirmed on fluoroscopy. The scope was removed with excellent patient tolerance. The waist was well-defined on the x-ray films. The patient was reevaluated by me after 4 to 6 marylin rs and was able to tolerate a clear liquid diet without any problem, and the entire family was happy with the outcome. IMPRESSION: Almost complete obstruction second and third part of the duodenum. Successful 9 cm nellie nt deployed, and the symptoms got completely resolved. PLAN: Proceed with chemotherapy. If surgeon insists on getting a colonoscopy, then after 2 to 3 da ys when the stent completely opens, we can prepared with GoLYTELY and look at the cecal lesion. Dictated By: TIANNA SALINAS MD PJ/NTS Conf#: [id number] DID#: [id number] CC: LETY HUNTER MD; DIAMOND FITZGERALD MD; RADHA PAGE MD;*EndCC*
[2016-06-03 08:19] VITALS: BP 121/80; RESP 16
[2016-06-03] MEDS: FAMOTIDINE 20 MG INJ IV SCH ×2 (08:39→20:30)
--- NOTE | 2016-06-03 08:53 | CONS ---
Date/Time of Note Date/Time of Note DATE: 06/03/16 TIME: 08:52 Assessment/Plan Assessment/Plan Chief Complaint/Hosp Course 60 year old male who presented to the emergency room at [facility] with epigastric pain x 1 week associated with nausea and nonbloody, nonbilious emesis and found to have gastric outlet obstruction due to malignancy (? primary duodenal metastatic to colon vs. reverse) s/p duodenal stent 06/02/16. - CT A/P at [facility] demonstrated distended stomach secondary to a duodenal mass causing obstruction at the third portion of the duodenum. Pt is also noted to have periduodenal lymphadenopathy with largest confluent mass 2.6 x 3.9 cm and multiple additional smaller nodes. Also seen is a 2.3 x 2.9 cm mass lying above the bladder may represent a drop metastasis. - Repeat CT CAP 05/27/16 showed 1. There is a infiltrative submucosal mass roughly 3.2 cm in length by 3.2 cm transverse involving the proximal third portion of the duodenum resulting in a partial obstruction of the stomach and proximal duodenum. Lymphoma or other duodenal cancer might present this fashion. There is thickening of the mucosa in the cardia of the stomach of unknown significance. Endoscopy may be helpful in evaluation. 2. There is an infiltrative mass involving the cecum and ascending colon extending beyond the serosa into the adjacent mesentery with abnormal mesenteric lymph nodes medial to the ascending colon. These measure up to 1.2 cm. Additional abnormal retroperitoneal lymph nodes are noted as described above. 3. There is matting of small bowel loops medial to the ascending colon which are suspicious for carcinomatosis. 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 -- There are scattered intralymphatic tumor emboli within adjacent small intestinal villi. COMMENT: Findings are discussed Dr. Sean De on 05/30/2016 at 9:00 a.m. This tumor may represent a duodenal primary; however, because of the extensive lymphatic invasion, the possibility of metastatic carcinoma or direct extension into the duodenum from an extraduodenal site should also be considered. Immunoperoxidase stains are pending to further characterize the tumor and a final report will be issued following review of the immunohistochemical stains. - Duodenal stent placed 06/02/16. Per Dr. De, almost complete obstruction second and third part of the duodenum. Successful 9 cm stent deployed, and the symptoms got completely resolved. Per Dr. De, proceed with chemotherapy. Discussed with niesha Parikh to start chemotherapy and defer colonoscopy since would not twisting frame changer at this point. - Port a cath was placed 06/01/16 in preparation for chemotherapy. FOLFOX chemo orders written, will be given as soon as chemo arrives. - CEA elevated at 13.1. Will continue to monitor this as patient starts chemotherapy - I have requested KRAS, NRAS, BRAF and MSI testing to be perfomred on surgical specimen - Elevated hematocrit likely secondary to dehydration, as acute onset in the setting of elevated Cr, BUN, Na, continue to monitor - There is no role for surgery at this time Case was discussed with Dr. Byrne, Dr. De and the family who concur with the above plan Problems: Consultation Date/Type/Reason Admit Date/Time May 26, 2016 at 06:29 Initial Consult Date 05/26/16 Type of Consultation: Hematology/Oncology Referring Provider: SHANAE LEWIS MD 24 HR Interval Summary Free Text/Dictation Patient doing well, tolerated liquids last night. NG tube has been removed. Patient denies nausea, vomiting and abdominal pain. Exam/Review of Systems Vital Signs Vitals Vital Signs Date Time Temp Pulse Resp B/P Pulse Ox O2 Delivery O2 Flow Rate FiO2 06/03/16 08:19 97.4 78 16 121/80 100 06/02/16 13:20 Room Air Intake and Output 06/02/16 06/02/16 06/03/16 15:00 23:00 07:00 Intake Total 450 ml 1820 ml 600 ml Output Total 900 ml Balance 450 ml 920 ml 600 ml Exam Constitutional: alert, frail, oriented Head: normocephalic Eyes: nl conjunctiva ENMT: other (NGT removed) Neck: non-tender, supple Cardiovascular: regular rate and rhythm Gastrointestinal: soft Musculoskeletal: nl extremities to inspection Results Result Diagram: 06/03/16 0505 06/03/16 0505 Results 24 hrs Laboratory Tests Test 06/03/16 05:05 White Blood Count 11.1 H Red Blood Count 5.42 Hemoglobin 16.1 Hematocrit 49.4 Mean Corpuscular Volume 91.1 Mean Corpuscular Hemoglobin 29.7 Mean Corpuscular Hemoglobin Concent 32.6 Red Cell Distribution Width 13.0 Platelet Count 225 # Mean Platelet Volume 11.4 H Neutrophils % 79.3 H Lymphocytes % 12.7 L Monocytes % 6.9 Eosinophils % 0.5 Basophils % 0.1 Nucleated Red Blood Cells % 0.0 Neutrophils # 8.8 H Lymphocytes # 1.4 Monocytes # 0.8 Eosinophils # 0.1 Basophils # 0.0 Nucleated Red Blood Cells # 0.0 Sodium Level 139 Potassium Level 3.8 Chloride Level 102 Carbon Dioxide Level 28 Anion Gap 13 Blood Urea Nitrogen 56 H Creatinine 1.12 Glucose Level 208 Calcium Level 8.6 Medications Medications Current Medications Metoclopramide HCl (Reglan) 10 mg Q6H PRN IV NAUSEA AND/OR VOMITING Last administered on 05/28/16 19:55; Admin Dose 10 MG; Start 05/26/16 at 08:00 Acetaminophen (Tylenol Supp) 650 mg Q6H PRN IN PAIN LEVEL 1-3 OR FEVER; Start 05/26/16 at 08:00 Morphine Sulfate (morphine) 2 mg Q4H PRN IV SEVERE PAIN LEVEL 7-10; Start 05/26 at 08:00 Ondansetron HCl (Zofran Inj) 4 mg Q6H PRN IV NAUSEA AND/OR VOMITING Last administered on 05/29/16 06:55; Admin Dose 4 MG; Start 05/29/16 at 00:00 Famotidine 20 mg 20 mg BID IV Last administered on 06/03/16 08:39; Admin Dose 20 MG; Start 05/29/16 at 09:00 Dextrose (D5W) 1,000 ml @ 75 mls/hr [id number] IV Last administered on 06/02/16 20:54; Admin Dose 75 MLS/HR; Start 06/02/16 at 10:30 DARBY KNOWLES MD Jun 03, 2016 08:53
--- NOTE | 2016-06-03 10:17 | PN ---
Date/Time of Note Date/Time of Note DATE: 06/03/16 TIME: 10:12 Assessment/Plan VTE Prophylaxis VTE Prophylaxis Intervention: SCD's Lines/Catheters IV [facility] Peripheral IV Urinary Cath still in place: No Assessment/Plan Chief Complaint/Hosp Course Assessment/Plan: 60 M with: 1. Duodenal mass - with approximately 2.6 x 3.9 cm size with periduodenal lymphadenopathy concerned about malignancy versus a metastatic cancer. Unfortunately path report shows a poorly differentiated adenocarcinoma. EGD earlier showed: Gastric outlet obstruction secondary to tumor invading the third part of the duodenum. There is also a 2.3 x 2.9 cm mass above the bladder , which may be a drop metastasis. port-a cath placed, s/p EGD with duodenal stent placement as well yesterday. - f/u GI rec's. - f/u GI, Heme/Onc, surgery rec's, especially regarding chemo options (per discuss with them, may start in house vs outpt). - D5W IVF's now for mild hypernatremia and mild ARF. - per Heme/Onc and GI, if surgeon insists on getting a colonoscopy, then after 2 to 3 days when the stent completely opens, we can prepared with GoLYTELY and look at the cecal lesion. 2. Intractable abdominal pain - likely secondary to duodenal mass (see # 1) - continue current meds for control 3. History of distended stomach, likely secondary to possible obstruction from the mass - see #1 4. GI ppx - H2 [place] Problems: Subjective 24 Hr Interval Summary Free Text/Dictation Pt had duodunal stent placed yesterday. Denies n/v, or abd pain, asking when she can eat however. Exam/Review of Systems Vital Signs Vitals Vital Signs Date Time Temp Pulse Resp B/P Pulse Ox O2 Delivery O2 Flow Rate FiO2 06/03/16 08:19 97.4 78 16 121/80 100 06/02/16 13:20 Room Air Intake and Output 06/02/16 06/02/16 06/03/16 14:59 22:59 06:59 Intake Total 450 ml 1820 ml 600 ml Output Total 900 ml Balance 450 ml 920 ml 600 ml Exam GENERAL: Awake, alert, in no distress HEENT: Normal. Oropharynx clear. NECK: Supple, no JVD, no lymphadenopathy. LUNGS: Clear to auscultation. No crackles, no wheezes. HEART: S1, S2, with regular rhythm, no murmur. ABDOMEN: Soft, less tender to palpation in the mid epigastric to mid umbilical area. No rebound, no guarding. Bowel sounds are present. EXTREMITIES: No clubbing, cyanosis, or edema. NEUROLOGICAL: Nonfocal, intact. PSYCHIATRIC: Appropriate affect and mood. Results Result Diagram: 06/03/16 0505 06/03/16 0505 Results 24 hrs Laboratory Tests Test 06/03/16 05:05 White Blood Count 11.1 H Red Blood Count 5.42 Hemoglobin 16.1 Hematocrit 49.4 Mean Corpuscular Volume 91.1 Mean Corpuscular Hemoglobin 29.7 Mean Corpuscular Hemoglobin Concent 32.6 Red Cell Distribution Width 13.0 Platelet Count 225 # Mean Platelet Volume 11.4 H Neutrophils % 79.3 H Lymphocytes % 12.7 L Monocytes % 6.9 Eosinophils % 0.5 Basophils % 0.1 Nucleated Red Blood Cells % 0.0 Neutrophils # 8.8 H Lymphocytes # 1.4 Monocytes # 0.8 Eosinophils # 0.1 Basophils # 0.0 Nucleated Red Blood Cells # 0.0 Sodium Level 139 Potassium Level 3.8 Chloride Level 102 Carbon Dioxide Level 28 Anion Gap 13 Blood Urea Nitrogen 56 H Creatinine 1.12 Glucose Level 208 Calcium Level 8.6 Medications Medications Current Medications Metoclopramide HCl (Reglan) 10 mg Q6H PRN IV NAUSEA AND/OR VOMITING Last administered on 05/28/16 19:55; Admin Dose 10 MG; Start 05/26/16 at 08:00 Acetaminophen (Tylenol Supp) 650 mg Q6H PRN [place] PAIN LEVEL 1-3 OR FEVER; Start 05/26/16 at 08:00 Morphine Sulfate (morphine) 2 mg Q4H PRN IV SEVERE PAIN LEVEL 7-10; Start 05/26 at 08:00 Ondansetron HCl (Zofran Inj) 4 mg Q6H PRN IV NAUSEA AND/OR VOMITING Last administered on 05/29/16 06:55; Admin Dose 4 MG; Start 05/29/16 at 00:00 Famotidine 20 mg 20 mg BID IV Last administered on 06/03/16 08:39; Admin Dose 20 MG; Start 05/29/16 at 09:00 Dextrose (D5W) 1,000 ml @ 75 mls/hr [id number] IV Last administered on 06/02/16t 20:54; Admin Dose 75 MLS/HR; Start 06/02/16 at 10:30 NEL DEL ANGEL Jun 03, 2016 10:17
[2016-06-03] MEDS: DEXTROSE 5% 1,000 ML IV SCH (11:30)
--- NOTE | 2016-06-03 16:04 | PN ---
Date/Time of Note Date/Time of Note DATE: 06/03/16 TIME: 15:59 Assessment/Plan Lines/Catheters IV Catheter Type (from [facility]): Peripheral IV Lnag[place] in Place (from [facility]): No Assessment/Plan Assessment/Plan [facility] Progress Note Date of Service: 06/03/16 Today's Impression & Plan: Overall stable with what appears to be successful initial resolution of gastric outlet obstruction after duodenal stenting done on 06/03/16. No indication for acute surgical intervention. Discussed with Dr. Mercado, Dr. De and patient and family. No need for colonoscopy at this time since the information will not change the choice of systemic chemotherapy. Very important to start therapy [place] (? possibility of starting the treatment inhouse). With above assessment, I've recommended the following for today: 1. Cont current cares 2. Advance diet 3. Consider start of systemic chemo inhouse (if possible) Thank you again for your great care of this very pleasant patient and wonderful family. If there are any questions, please feel free to call me at [phone]. TOTAL VISIT TIME: 20 minutes of which more than half was spent in [id number] discussion with the patient, possibly including family, as well as coordination of care between multiple physicians and providers. Disclaimer: Inadvertent spelling or grammatical errors are likely due to EHR/ dictation software use and do not reflect on the overall quality of patient care. Updated Clinical Summary: The patient is a very pleasant 60-year-old gentleman with comorbidity of BMI 25.3 and no other major known medical issues, who was transferred from [facility] to [facility] due to insurance capitation on 05/26/2016 after he presented there with abdominal pain and nausea and vomiting. He has had a workup that included laboratory values showing normal CBC and electrolytes, but elevated CEA at 13.1, and abdominal and pelvic CT scan that shows an infiltrative submucosal mass roughly 3.2 cm in length x 3.2 cm transverse involving the proximal third portion of the duodenum , resulting in a partial obstruction of the stomach and proximal duodenum with differential including lymphomatoid and duodenal cancer being considered. The cardia of the stomach is also somewhat thickened. There was an infiltrative mass involving the cecum and ascending colon extending beyond the serosa into the adjacent mesentery with abnormal mesenteric lymph nodes medial to the ascending colon. The largest was 1.2 cm. There was also additional abnormal retroperitoneal lymph nodes. There was matting of small bowel loops medial to the ascending colon which were suspicious for carcinomatosis and evidence of bilateral inguinal hernias, the left being larger than the right. Prostate was enlarged. There was spondylosis of the thoracic and lumbosacral spine and calcified mediastinal lymph nodes in the chest. This was all on 05/27/2016. S/ p duodenal stenting at [facility] on 06/03/16. COMORBIDITIES: 1. BMI 25.3. 2. Duodenal mass with ascending colon mass and a mass in between the 2 in addition to lymphadenopathy and mass in the pelvis as well as retroperitoneal lymph nodes suspicious for metastatic malignancy. 3. Bilateral inguinal hernias. 4. Enlarged prostate gland. 5. Spondylosis of the thoracic and lumbosacral spine. 6. Calcified mediastinal lymph nodes. 7. S/p duodenal stenting at [facility] on 06/03/16 with finding of obstruction in second and third portions of the duodenum. Subjective: No major events or complaints other than above; no abd pain and under control with medications; - n/v/d; no sob or cp; - flatus; - BM; + activity Objective: Vitals: See below Exam: GENERAL: On exam, the patient was laying in bed and appeared to be comfortable and in no acute distress. ABDOMEN: Soft, nontender and nondistended. There are no peritoneal signs or guarding. SKIN: Skin appears to be pink and feels warm to touch. NEUROLOGIC: Patient is awake, alert, and follows commands appropriately. Exam/Review of Systems Vital Signs Vitals Vital Signs Date Time Temp Pulse Resp B/P Pulse Ox O2 Delivery O2 Flow Rate FiO2 06/03/16 08:19 97.4 78 16 121/80 100 06/02/16 13:20 Room Air 06/01/16 17:30 2 Intake and Output 06/02/16 06/02/16 06/03/16 15:00 23:00 07:00 Intake Total 450 ml 1820 ml 600 ml Output Total 900 ml Balance 450 ml 920 ml 600 ml Results Result Diagram: 06/03/16 0505 06/03/16 0505 RADHA PAGE M.D. Jun 03, 2016 16:04
[2016-06-03 19:37] VITALS: BP 113/67; RESP 20
[2016-06-04] VITALS (14 sets, daily range): BP systolic 112–132; BP diastolic 64–78; PULSE 66–81; RESP 17–22
[2016-06-04] MEDS: DEXTROSE 5% 1,000 ML IV SCH ×3 (00:43→13:01)
[2016-06-04 06:25] LABS: ADD SCAN DIFF NO
[2016-06-04 06:43] LABS: BASOPHILS % 0.1 % (0.0-2.0); EOSINOPHILS # 0.1 10^3/ul (0.0-0.5); EOSINOPHILS % 0.6 % (0.0-7.0); HEMOGLOBIN 14.7 g/dl (14.0-18.0); LYMPHOCYTES # 1.8 10^3/ul (0.8-2.9); LYMPHOCYTES % 17.2 % (15.0-51.0); MEAN CORPUSCULAR HEMOGLOBIN 30.1 pg (29.0-33.0); MEAN CORPUSCULAR HGB CONC 33.4 g/dl (32.0-37.0); MEAN PLATELET VOLUME 11.8 fl (7.4-10.4); MONOCYTE # 0.9 10^3/ul (0.3-0.9); MONOCYTES % 8.4 % (0.0-11.0); NEUTROPHIL # 7.6 10^3/ul (1.6-7.5); NEUTROPHILS % 73.1 % (39.0-77.0); PLATELET COUNT 201 10^3/UL (140-415); RED BLOOD COUNT 4.89 10^6/ul (4.70-6.10); RED CELL DISTRIBUTION WIDTH 12.2 % (11.5-14.5); WHITE BLOOD COUNT 10.4 10^3/ul (4.8-10.8)
[2016-06-04 07:04] LABS: CREATININE 1.03 mg/dl (0.61-1.24)
[2016-06-04 07:05] LABS: CALCIUM 8.3 mg/dl (8.4-10.2)
[2016-06-04] MEDS: FAMOTIDINE 20 MG INJ IV SCH ×2 (09:26→21:27)
--- NOTE | 2016-06-04 11:10 | PN ---
Date/Time of Note Date/Time of Note DATE: 06/04/16 TIME: 11:09 Assessment/Plan VTE Prophylaxis VTE Prophylaxis Intervention: SCD's Lines/Catheters IV Catheter Type (from [facility]): Peripheral IV Urinary Cath still in place: No Assessment/Plan Chief Complaint/Hosp Course Assessment/Plan: 60 M with: 1. Duodenal mass - with approximately 2.6 x 3.9 cm size with periduodenal lymphadenopathy concerned about malignancy versus a metastatic cancer. Unfortunately path report shows a poorly differentiated adenocarcinoma. EGD earlier showed: Gastric outlet obstruction secondary to tumor invading the third part of the duodenum. There is also a 2.3 x 2.9 cm mass above the bladder , which may be a drop metastasis. port-a cath placed, s/p EGD with duodenal stent placement as well. - f/u GI rec's. - f/u Heme/Onc, surgery rec's - appears chemo to start in house 2. Intractable abdominal pain - likely secondary to duodenal mass (see # 1) - continue current meds for control 3. History of distended stomach, likely secondary to possible obstruction from the mass - see #1 4. GI ppx - H2 [place] Problems: Subjective 24 Hr Interval Summary Free Text/Dictation Pt on soft diet, NG tube out. Awaiting transfer to [facility] to start chemo. Exam/Review of Systems Vital Signs Vitals Vital Signs Date Time Temp Pulse Resp B/P Pulse Ox O2 Delivery O2 Flow Rate FiO2 06/04/16 07:58 98.8 70 20 112/76 99 06/02/16 13:20 Room Air 06/01/16 17:30 2 Intake and Output 06/03/16 06/03/16 06/04/16 15:00 23:00 07:00 Intake Total 400 ml 450 ml 1630 ml Balance 400 ml 450 ml 1630 ml Exam GENERAL: Awake, alert, in no distress HEENT: Normal. Oropharynx clear. NECK: Supple, no JVD, no lymphadenopathy. LUNGS: Clear to auscultation. No crackles, no wheezes. HEART: S1, S2, with regular rhythm, no murmur. ABDOMEN: Soft, less tender to palpation in the mid epigastric to mid umbilical area. No rebound, no guarding. Bowel sounds are present. EXTREMITIES: No clubbing, cyanosis, or edema. NEUROLOGICAL: Nonfocal, intact. PSYCHIATRIC: Appropriate affect and mood. Results Result Diagram: 06/04/16 0515 06/04/16 0515 Results 24 hrs Laboratory Tests Test 06/04/16 05:15 White Blood Count 10.4 Red Blood Count 4.89 Hemoglobin 14.7 Hematocrit 44.0 Mean Corpuscular Volume 90.0 Mean Corpuscular Hemoglobin 30.1 Mean Corpuscular Hemoglobin Concent 33.4 Red Cell Distribution Width 12.2 Platelet Count 201 Mean Platelet Volume 11.8 H Neutrophils % 73.1 Lymphocytes % 17.2 Monocytes % 8.4 Eosinophils % 0.6 Basophils % 0.1 Nucleated Red Blood Cells % 0.0 Neutrophils # 7.6 H Lymphocytes # 1.8 Monocytes # 0.9 Eosinophils # 0.1 Basophils # 0.0 Nucleated Red Blood Cells # 0.0 Sodium Level 133 L Potassium Level 4.0 Chloride Level 95 L Carbon Dioxide Level 29 Anion Gap 13 Blood Urea Nitrogen 34 #H Creatinine 1.03 Glucose Level 148 # Calcium Level 8.3 L Medications Medications Current Medications Metoclopramide HCl (Reglan) 10 mg Q6H PRN IV NAUSEA AND/OR VOMITING Last administered on 05/28/16 19:55; Admin Dose 10 MG; Start 05/26/16 at 08:00 Acetaminophen (Tylenol Supp) 650 mg Q6H PRN [place] PAIN LEVEL 1-3 OR FEVER; Start 05/26/16 at 08:00 Morphine Sulfate (morphine) 2 mg Q4H PRN IV SEVERE PAIN LEVEL 7-10; Start 05/26 at 08:00 Ondansetron HCl (Zofran Inj) 4 mg Q6H PRN IV NAUSEA AND/OR VOMITING Last administered on 05/29/16 06:55; Admin Dose 4 MG; Start 05/29/16 at 00:00 Famotidine 20 mg 20 mg BID IV Last administered on 06/04/16 09:26; Admin Dose 20 MG; Start 05/29/16 at 09:00 Sodium Chloride (1/2 NS) 1,000 ml @ 75 mls/hr [id number] IV ; Start 06/04/16 at 11: 30 NEL DEL ANGEL Jun 04, 2016 11:10
[2016-06-04] MEDS ORDERED: SOD CHLORIDE 0.45% 1,000 ML IV SCH (11:30)
[2016-06-04] MEDS ORDERED: FAMOTIDINE 20 MG INJ IV ONE ×2 (13:00→14:30)
--- NOTE | 2016-06-04 13:56 | CONS ---
Date/Time of Note Date/Time of Note DATE: 06/04/16 TIME: 13:51 Assessment/Plan Assessment/Plan Chief Complaint/Hosp Course 60 year old male who presented to the emergency room at [place] with epigastric pain x 1 week associated with nausea and nonbloody, nonbilious emesis. - CT A/P demonstrated distended stomach secondary to a duodenal mass causing obstruction at the third portion of the duodenum. Pt is also noted to have periduodenal lymphadenopathy with largest confluent mass 2.6 x 3.9 cm and multiple additional smaller nodes. Also seen is a 2.3 x 2.9 cm mass lying above the bladder may represent a drop metastasis. 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 -port a cath was ordered in preparation for chemotherapy -pt is s/p placemement of duodenal stent place to relieve his gastric outlet obstruction - CEA elevated at 13.1. will continue to monitor this as patient starts chemotherapy -there is no role for surgery at this time #1. Pt to start Folfox today. Pt has consented, orders written by To Case was discussed with Dr. Byrne, Dr. De and the family who concur with the above plan \ Problems: Consultation Date/Type/Reason Admit Date/Time May 26, 2016 at 06:29 Initial Consult Date 05/26/16 Type of Consultation: Hematology/Oncology Reason for Consultation adenoca of GI primary Referring Provider: SHANAE LEWIS MD 24 HR Interval Summary Free Text/Dictation NGT was taken out. Pt to start folfox today. pt has agreed Exam/Review of Systems Vital Signs Vitals Vital Signs Date Time Temp Pulse Resp B/P Pulse Ox O2 Delivery O2 Flow Rate FiO2 06/04/16 07:58 98.8 70 20 112/76 99 06/02/16 13:20 Room Air 06/01/16 17:30 2 Intake and Output 06/03/16 06/03/16 06/04/16 15:00 23:00 07:00 Intake Total 400 ml 450 ml 1630 ml Balance 400 ml 450 ml 1630 ml Exam Constitutional: alert, oriented Psych: no complaints Head: atraumatic, normocephalic Eyes: nl conjunctiva ENMT: nl external ears & nose Neck: non-tender, supple Respiratory: clear to auscultation, other (chest wall port in place) Cardiovascular: regular rate and rhythm Gastrointestinal: soft Results Result Diagram: 06/04/16 0515 06/04/16 0515 Results 24 hrs Laboratory Tests Test 06/04/16 05:15 White Blood Count 10.4 Red Blood Count 4.89 Hemoglobin 14.7 Hematocrit 44.0 Mean Corpuscular Volume 90.0 Mean Corpuscular Hemoglobin 30.1 Mean Corpuscular Hemoglobin Concent 33.4 Red Cell Distribution Width 12.2 Platelet Count 201 Mean Platelet Volume 11.8 H Neutrophils % 73.1 Lymphocytes % 17.2 Monocytes % 8.4 Eosinophils % 0.6 Basophils % 0.1 Nucleated Red Blood Cells % 0.0 Neutrophils # 7.6 H Lymphocytes # 1.8 Monocytes # 0.9 Eosinophils # 0.1 Basophils # 0.0 Nucleated Red Blood Cells # 0.0 Sodium Level 133 L Potassium Level 4.0 Chloride Level 95 L Carbon Dioxide Level 29 Anion Gap 13 Blood Urea Nitrogen 34 #H Creatinine 1.03 Glucose Level 148 # Calcium Level 8.3 L Medications Medications Current Medications Metoclopramide HCl (Reglan) 10 mg Q6H PRN IV NAUSEA AND/OR VOMITING Last administered on 05/28/16 19:55; Admin Dose 10 MG; Start 05/26/16 at 08:00 Acetaminophen (Tylenol Supp) 650 mg Q6H PRN [place] PAIN LEVEL 1-3 OR FEVER; Start 05/26/16 at 08:00 Morphine Sulfate (morphine) 2 mg Q4H PRN IV SEVERE PAIN LEVEL 7-10; Start 05/26 at 08:00 Ondansetron HCl (Zofran Inj) 4 mg Q6H PRN IV NAUSEA AND/OR VOMITING Last administered on 05/29/16 06:55; Admin Dose 4 MG; Start 05/29/16 at 00:00 Famotidine 20 mg 20 mg BID IV Last administered on 06/04/16 09:26; Admin Dose 20 MG; Start 05/29/16 at 09:00 Dextrose 1,000 ml @ 50 mls/hr Q20H IV Last administered on 06/04/16 13:01; Admin Dose 50 MLS/HR; Start 06/04/16 at 14:00 Fluorouracil 2220 mg/Dextrose 500 ml @ 21.739 mls/ hr Q23H IV ; Start 06/04/16 at 17:30; Stop 06/06/16 at 15:29 Oxaliplatin 157 mg/Dextrose 250 ml @ 125 mls/hr ONCE ONCE IV ; Start 06/04/16 at 15:00; Stop 06/04/16 at 16:59 Leucovorin Calcium/Dextrose (Leucovorin Calcium Inj/D5W) 50 ml @ 100 mls/hr ONCE ONCE IV ; Start 06/04/16 at 17:00; Stop 06/04/16 at 17:29 LETY HUNTER M.D. Jun 04, 2016 13:55
[2016-06-04] MEDS ORDERED: DEXAMETHASONE IVPB ONE (14:30)
[2016-06-04] MEDS ORDERED: ONDANSETRON IVPB ONE (14:30)
[2016-06-04] MEDS ORDERED: DEXTROSE 5% IVPB ONE (14:30)
[2016-06-04] MEDS ORDERED: DEXTROSE 5% IV ONE ×2 (15:00→17:00)
[2016-06-04] MEDS ORDERED: OXALIPLATIN IV ONE (15:00)
[2016-06-04] MEDS ORDERED: LEUCOVORIN CALCIUM IV ONE (17:00)
[2016-06-04] MEDS: FLUOROURACIL IV SCH (17:58)
[2016-06-04] MEDS: DEXTROSE 5% IV SCH (17:58)
[2016-06-04] MEDS: NACL 0.9% 3 ML SYG IV SCH ×2 (21:25→21:30)
[2016-06-05] VITALS (14 sets, daily range): BP systolic 110–129; BP diastolic 65–78; PULSE 78–87; RESP 16–20
[2016-06-05 05:07] LABS: ADD SCAN DIFF NO
[2016-06-05 05:11] LABS: BASOPHILS % 0.1 % (0.0-2.0); HEMATOCRIT 42.3 % (42.0-52.0); HEMOGLOBIN 14.4 g/dl (14.0-18.0); LYMPHOCYTES % 5.3 % (15.0-51.0); MEAN CORPUSCULAR HEMOGLOBIN 30.1 pg (29.0-33.0); MEAN CORPUSCULAR VOLUME 88.3 fl (82.0-101.0); MEAN PLATELET VOLUME 11.4 fl (7.4-10.4); MONOCYTES % 5.6 % (0.0-11.0); NEUTROPHIL # 15.9 10^3/ul (1.6-7.5); NEUTROPHILS % 88.4 % (39.0-77.0); PLATELET COUNT 168 10^3/UL (140-415); RED BLOOD COUNT 4.79 10^6/ul (4.70-6.10); RED CELL DISTRIBUTION WIDTH 11.9 % (11.5-14.5)
[2016-06-05 05:43] LABS: POTASSIUM 4.3 mmol/L (3.5-5.1)
[2016-06-05 05:46] LABS: CALCIUM 8.1 mg/dl (8.4-10.2); CREATININE 0.85 mg/dl (0.61-1.24)
--- NOTE | 2016-06-05 06:00 | CONS ---
DATE OF ADMISSION: 05/26/2016 DATE OF CONSULTATION: The patient is a 60-year-old gentleman who presented with abdominal pain. A CT scan showed a duoden al blockage completely at the second and third part from the tumor. The patient also had a cecal ma ss. Because of the gastric outlet obstruction, he underwent an EGD and the placement of a stent, wh ich was successfully deployed. The patient is not able to tolerate solid food. No nausea, no vomit ing, and he has good bowel movements. No abdominal pain. OBJECTIVE VITALS: Stable. ABDOMEN: Benign. CARDIOVASCULAR SYSTEM: No murmur, gallop, or click. LUNGS: Clear. CENTRAL NERVOUS SYSTEM: Grossly within normal limits. LABORATORY DATA: His WBC count is 10.4; it is coming down. Hematocrit is 44. BUN is 34, and creat inine is 1. IMPRESSION 1. Blockage of the second and third part of the duodenum, secondary to tumor. The blockage success fully relieved by deploying the stent, and the patient is able to eat now. 2. Dehydration. 3. The tumor, which was originally reported as an adenocarcinoma, now it is originating from the ur eter, as per Dr. Gardiner. PLAN 1. Chemotherapy, as per Dr. Debbie Flores. 2. IV hydration. 3. Continue mechanical soft diet. Dictated By: TIANNA WILSON/ANN MARIE Conf#: [id number] DID#: [id number]
[2016-06-05] MEDS: FAMOTIDINE 20 MG INJ IV SCH ×2 (09:17→21:50)
[2016-06-05] MEDS: DEXTROSE 5% 1,000 ML IV SCH (09:18)
--- NOTE | 2016-06-05 11:03 | PN ---
Date/Time of Note Date/Time of Note DATE: 06/05/16 TIME: 11:00 Assessment/Plan VTE Prophylaxis VTE Prophylaxis Intervention: SCD's Lines/Catheters IV [facility]ter Type (from [facility]): PORT Urinary Cath still in place: No Assessment/Plan Chief Complaint/Hosp Course Assessment/Plan: 60 M with: 1. Duodenal mass - with approximately 2.6 x 3.9 cm size with periduodenal lymphadenopathy concerned about malignancy versus a metastatic cancer. Unfortunately path report shows a poorly differentiated adenocarcinoma. EGD earlier showed: Gastric outlet obstruction secondary to tumor invading the third part of the duodenum. There is also a 2.3 x 2.9 cm mass above the bladder , which may be a drop metastasis. port-a cath placed, s/p EGD with duodenal stent placement as well. Possible origin of mass from ureter? - f/u GI rec's. - f/u Heme/Onc, surgery rec's - on chemo now Folfox 2. Intractable abdominal pain - likely secondary to duodenal mass (see # 1) - continue current meds for control 3. History of distended stomach, likely secondary to possible obstruction from the mass - see #1 4. GI ppx - H2 [place] Problems: Subjective 24 Hr Interval Summary Free Text/Dictation Pt on chemo now, no acute events overnight. Exam/Review of Systems Vital Signs Vitals Vital Signs Date Time Temp Pulse Resp B/P Pulse Ox O2 Delivery O2 Flow Rate FiO2 06/05/16 07:59 97.0 78 20 110/65 97 06/05/16 03:45 Room Air 06/01/16 17:30 2 Intake and Output 06/04/16 06/04/16 06/05/16 15:00 23:00 07:00 Intake Total 360 ml 1184 ml 1045.57 ml Output Total 400 ml 1000 ml Balance 360 ml 784 ml 45.57 ml Exam GENERAL: Awake, alert, in no distress HEENT: Normal. Oropharynx clear. NECK: Supple, no JVD, no lymphadenopathy. LUNGS: Clear to auscultation. No crackles, no wheezes. HEART: S1, S2, with regular rhythm, no murmur. ABDOMEN: Soft, less tender to palpation in the mid epigastric to mid umbilical area. No rebound, no guarding. Bowel sounds are present. EXTREMITIES: No clubbing, cyanosis, or edema. NEUROLOGICAL: Nonfocal, intact. PSYCHIATRIC: Appropriate affect and mood. Results Result Diagram: 06/05/16 0418 06/05/16 0418 Results 24 hrs Laboratory Tests Test 06/05/16 04:18 White Blood Count 18.0 #H Red Blood Count 4.79 Hemoglobin 14.4 Hematocrit 42.3 Mean Corpuscular Volume 88.3 Mean Corpuscular Hemoglobin 30.1 Mean Corpuscular Hemoglobin Concent 34.0 Red Cell Distribution Width 11.9 Platelet Count 168 Mean Platelet Volume 11.4 H Neutrophils % 88.4 H Lymphocytes % 5.3 L Monocytes % 5.6 Eosinophils % 0.0 Basophils % 0.1 Nucleated Red Blood Cells % 0.0 Neutrophils # 15.9 H Lymphocytes # 1.0 Monocytes # 1.0 H Eosinophils # 0.0 Basophils # 0.0 Nucleated Red Blood Cells # 0.0 Sodium Level 129 L Potassium Level 4.3 Chloride Level 97 Carbon Dioxide Level 27 Anion Gap 9 Blood Urea Nitrogen 25 H Creatinine 0.85 Glucose Level 151 Calcium Level 8.1 L Medications Medications Current Medications Metoclopramide HCl (Reglan) 10 mg Q6H PRN IV NAUSEA AND/OR VOMITING Last administered on 05/28/16 19:55; Admin Dose 10 MG; Start 05/26/16 at 08:00 Acetaminophen (Tylenol Supp) 650 mg Q6H PRN [place] PAIN LEVEL 1-3 OR FEVER; Start 05/26/16 at 08:00 Morphine Sulfate (morphine) 2 mg Q4H PRN IV SEVERE PAIN LEVEL 7-10; Start 05/26 at 08:00 Ondansetron HCl (Zofran Inj) 4 mg Q6H PRN IV NAUSEA AND/OR VOMITING Last administered on 05/29/16 06:55; Admin Dose 4 MG; Start 05/29/16 at 00:00 Famotidine 20 mg 20 mg BID IV Last administered on 06/05/16 09:17; Admin Dose 20 MG; Start 05/29/16 at 09:00 Dextrose 1,000 ml @ 50 mls/hr Q20H IV Last administered on 06/05/16 09:18; Admin Dose 50 MLS/HR; Start 06/04/16 at 14:00 Fluorouracil/ Dextrose (Adrucil/D5W) 500 ml @ 21.739 mls/ hr Q23H IV Last administered on 4/1/17at 17:58; Admin Dose 21.739 MLS/HR; Start 06/04/16 at 17:30 ; Stop 06/06/16 at 15:29 NEL DEL ANGEL Jun 05, 2016 11:03
--- NOTE | 2016-06-05 17:02 | CONS ---
Date/Time of Note Date/Time of Note DATE: 06/05/16 TIME: 17:01 Assessment/Plan Assessment/Plan Additional Assessment/Plan IMPRESSION 1. Blockage of the second and third part of the duodenum, secondary to tumor. The blockage successfully relieved by deploying the stent, and the patient is able to eat now. 2. Dehydration. 3. The tumor, which was originally reported as an adenocarcinoma, now it is originating from the ureter or urethra, as per Dr. Gardiner. 4. Leukocytosis PLAN 1. Chemotherapy, as per Dr. Debbie Flores. 2. IV hydration. 3. Continue mechanical soft diet. Consultation Date/Type/Reason Admit Date/Time May 26, 2016 at 06:29 Initial Consult Date 05/26/16 Type of Consultation: Hematology/Oncology Referring Provider: SHANAE LEWIS MD 24 HR Interval Summary Free Text/Dictation No abdominal pain no nausea no vomiting Constitutional: improved, no complaints Exam/Review of Systems Vital Signs Vitals Vital Signs Date Time Temp Pulse Resp B/P Pulse Ox O2 Delivery O2 Flow Rate FiO2 06/05/16 12:17 98.4 78 18 113/69 96 Room Air 06/01/16 17:30 2 Intake and Output 06/04/16 06/04/16 06/05/16 15:00 23:00 07:00 Intake Total 360 ml 1184 ml 1045.57 ml Output Total 400 ml 1000 ml Balance 360 ml 784 ml 45.57 ml Exam Constitutional: alert, oriented, well developed Psych: nl mood/affect, no complaints Head: atraumatic, normocephalic Eyes: EOMI, PERRL, nl conjunctiva, nl lids, nl sclera ENMT: nl external ears & nose, nl lips & teeth, nl nasal mucosa & septum Neck: non-tender, supple Respiratory: clear to auscultation, normal air movement Cardiovascular: nl pulses, regular rate and rhythm Gastrointestinal: nl liver, spleen, non-tender, soft Musculoskeletal: nl extremities to inspection, nl gait and stance Extremities: normal pulses Neurological: GENETICS PHYSICIAN II-XII intact, nl mental status, nl speech, nl strength Skin: nl turgor, No rash or lesions Lymph: nl lymph nodes Results Result Diagram: 06/05/16 0418 06/05/16 0418 Results 24 hrs Laboratory Tests Test 06/05/16 04:18 White Blood Count 18.0 #H Red Blood Count 4.79 Hemoglobin 14.4 Hematocrit 42.3 Mean Corpuscular Volume 88.3 Mean Corpuscular Hemoglobin 30.1 Mean Corpuscular Hemoglobin Concent 34.0 Red Cell Distribution Width 11.9 Platelet Count 168 Mean Platelet Volume 11.4 H Neutrophils % 88.4 H Lymphocytes % 5.3 L Monocytes % 5.6 Eosinophils % 0.0 Basophils % 0.1 Nucleated Red Blood Cells % 0.0 Neutrophils # 15.9 H Lymphocytes # 1.0 Monocytes # 1.0 H Eosinophils # 0.0 Basophils # 0.0 Nucleated Red Blood Cells # 0.0 Sodium Level 129 L Potassium Level 4.3 Chloride Level 97 Carbon Dioxide Level 27 Anion Gap 9 Blood Urea Nitrogen 25 H Creatinine 0.85 Glucose Level 151 Calcium Level 8.1 L Medications Medications Current Medications Metoclopramide HCl (Reglan) 10 mg Q6H PRN IV NAUSEA AND/OR VOMITING Last administered on 05/28/16 19:55; Admin Dose 10 MG; Start 05/26/16 at 08:00 Acetaminophen (Tylenol Supp) 650 mg Q6H PRN [place] PAIN LEVEL 1-3 OR FEVER; Start 05/26/16 at 08:00 Morphine Sulfate (morphine) 2 mg Q4H PRN IV SEVERE PAIN LEVEL 7-10; Start 05/26 at 08:00 Ondansetron HCl (Zofran Inj) 4 mg Q6H PRN IV NAUSEA AND/OR VOMITING Last administered on 05/29/16 06:55; Admin Dose 4 MG; Start 05/29/16 at 00:00 Famotidine 20 mg 20 mg BID IV Last administered on 06/05/16 09:17; Admin Dose 20 MG; Start 05/29/16 at 09:00 Dextrose 1,000 ml @ 50 mls/hr Q20H IV Last administered on 06/05/16 09:18; Admin Dose 50 MLS/HR; Start 06/04/16 at 14:00 Fluorouracil/ Dextrose (Adrucil/D5W) 500 ml @ 21.739 mls/ hr Q23H IV Last administered on 06/04/16 17:58; Admin Dose 21.739 MLS/HR; Start 06/04/16 at 17:30 ; Stop 06/06/16 at 15:29 TIANNA SALINAS MD Jun 05, 2016 17:02
[2016-06-05] MEDS: DEXTROSE 5% IV SCH (19:51)
[2016-06-05] MEDS: FLUOROURACIL IV SCH (19:51)
[2016-06-06 03:45] VITALS: BP 114/71; PULSE 83; RESP 17
[2016-06-06] MEDS: DEXTROSE 5% 1,000 ML IV SCH (05:20)
[2016-06-06 05:25] LABS: ADD SCAN DIFF NO
[2016-06-06 05:29] LABS: EOSINOPHILS # 0.1 10^3/ul (0.0-0.5); EOSINOPHILS % 0.7 % (0.0-7.0); HEMATOCRIT 41.4 % (42.0-52.0); HEMOGLOBIN 14.1 g/dl (14.0-18.0); LYMPHOCYTES # 1.3 10^3/ul (0.8-2.9); LYMPHOCYTES % 14.3 % (15.0-51.0); MEAN CORPUSCULAR HEMOGLOBIN 30.1 pg (29.0-33.0); MEAN CORPUSCULAR HGB CONC 34.1 g/dl (32.0-37.0); MEAN CORPUSCULAR VOLUME 88.3 fl (82.0-101.0); MEAN PLATELET VOLUME 11.2 fl (7.4-10.4); MONOCYTE # 0.4 10^3/ul (0.3-0.9); MONOCYTES % 4.2 % (0.0-11.0); NEUTROPHIL # 7.1 10^3/ul (1.6-7.5); NEUTROPHILS % 80.2 % (39.0-77.0); PLATELET COUNT 151 10^3/UL (140-415); RED BLOOD COUNT 4.69 10^6/ul (4.70-6.10); RED CELL DISTRIBUTION WIDTH 12.3 % (11.5-14.5); WHITE BLOOD COUNT 8.8 10^3/ul (4.8-10.8)
[2016-06-06 05:52] LABS: POTASSIUM 3.8 mmol/L (3.5-5.1)
[2016-06-06 05:54] LABS: CREATININE 0.79 mg/dl (0.61-1.24)
[2016-06-06 05:55] LABS: CALCIUM 7.9 mg/dl (8.4-10.2)
[2016-06-06 08:37] VITALS: BP 108/71; RESP 18
--- NOTE | 2016-06-06 09:41 | PN ---
Date/Time of Note Date/Time of Note DATE: 06/06/16 TIME: 09:37 Assessment/Plan Lines/Catheters IV Catheter Type (from [facility]): Central Line [place] in Place (from [facility]): No Assessment/Plan Chief Complaint/Hosp Course 1. 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 De 06/02 -final path pending -diet as tolerated -chemo per onc 2. Nausea/vomiting secondary to outlet obstruction as above improved after stenting as above -diet as tolerated 3. Steatosis -Eventual nutrition and lifestyle optimization 4. Weight loss probably secondary to above -As above Thank you, Problems: Subjective 24 Hr Interval Summary s/p EGD and stenting of the obstructed duodenum 06/[address] De. Tolerating diet. On chemo. Patho possibly of urologic origion. Low grade temp. No chills. No chest pain or shortness of breath. No cough. No seizure. No headache, visual, or neurologic changes. No dysuria. Exam/Review of Systems Vital Signs Vitals Vital Signs Date Time Temp Pulse Resp B/P Pulse Ox O2 Delivery O2 Flow Rate FiO2 06/06/16 08:37 99.6 83 18 108/71 96 06/06/16 03:45 Room Air Intake and Output 06/05/16 06/05/16 06/06/16 15:00 23:00 07:00 Intake Total 2575.57 ml 1195.57 ml Output Total 1180 ml 1600 ml Balance 1395.57 ml -404.43 ml Exam Free Text/Dictation Constitutional: alert, oriented, No distress Psych: nl mood/affect, No anxiety, No confusion Head: atraumatic, normocephalic Eyes: EOMI, PERRL, nl conjunctiva, No icteric ENMT: mucosa pink and moist, nl external ears & nose, nl lips & teeth Neck: non-tender, supple, No jvd, No masses Respiratory: normal air movement, No congested cough, No labored breathing Cardiovascular: regular rate and rhythm, No edema Gastrointestinal: non-tender, soft, No distended, No rebound or guarding Genitourinary - Male: nl scrotum Musculoskeletal: nl extremities to inspection, nl gait and stance, No joint tenderness Extremities: normal pulses, No calf tenderness, No cyanosis Neurological: nl mental status, nl speech, nl strength Skin: nl turgor, No diaphoresis, No rash or lesions Lymph: No nl lymph nodes (Inguinal) Results Result Diagram: 06/06/16 0435 06/06/16 0435 DIAMOND FITZGERALD MD Jun 06, 2016 09:41
[2016-06-06] MEDS: FAMOTIDINE 20 MG INJ IV SCH ×2 (09:48→20:32)
--- NOTE | 2016-06-06 11:51 | PN ---
Date/Time of Note Date/Time of Note DATE: 06/06/16 TIME: 11:44 Assessment/Plan VTE Prophylaxis VTE Prophylaxis Intervention: SCD's Lines/Catheters IV Catheter Type (from [facility]): Central Line Central line still needed: Yes Urinary Cath still in place: No Assessment/Plan Assessment/Plan 1. 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 Intractable abdominal pain - likely secondary to duodenal mass (see # 1) : improved 3. GOO 2/2 mass s/p duodenal stent 4. Hyponatremia : ?2/2 chemo PLAN: * Await chemo completion per oncology * Gentle IVF hydration * Meanwhile monitor hematologic labs and electrolytes * Continue PRN pain control/ antiemetics/ antipyretics/ supportive care * GI ppx - H2 [place] * DVT ppx: SCDs, ?lovenox Subjective 24 Hr Interval Summary Free Text/Dictation patient doing well, has no complaints, tolerating chemo well. Exam/Review of Systems Vital Signs Vitals Vital Signs Date Time Temp Pulse Resp B/P Pulse Ox O2 Delivery O2 Flow Rate FiO2 06/06/16 08:37 99.6 83 18 108/71 96 06/06/16 03:45 Room Air Intake and Output 06/05/16 06/05/16 06/06/16 15:00 23:00 07:00 Intake Total 2575.57 ml 1195.57 ml Output Total 1180 ml 1600 ml Balance 1395.57 ml -404.43 ml Exam GENERAL: Awake, alert, in no distress HEENT: Normal. Oropharynx clear. NECK: Supple, no JVD, no lymphadenopathy. LUNGS: Clear to auscultation. No crackles, no wheezes. HEART: S1, S2, with regular rhythm, no murmur. ABDOMEN: Soft, less tender to palpation in the mid epigastric to mid umbilical area. No rebound, no guarding. Bowel sounds are present. EXTREMITIES: No clubbing, cyanosis, or edema. NEUROLOGICAL: Nonfocal, intact. PSYCHIATRIC: Appropriate affect and mood. Results Result Diagram: 06/06/16 0435 06/06/16 0435 Results 24 hrs Laboratory Tests Test 06/06/16 04:35 White Blood Count 8.8 # Red Blood Count 4.69 L Hemoglobin 14.1 Hematocrit 41.4 L Mean Corpuscular Volume 88.3 Mean Corpuscular Hemoglobin 30.1 Mean Corpuscular Hemoglobin Concent 34.1 Red Cell Distribution Width 12.3 Platelet Count 151 Mean Platelet Volume 11.2 H Neutrophils % 80.2 H Lymphocytes % 14.3 L Monocytes % 4.2 Eosinophils % 0.7 Basophils % 0.0 Nucleated Red Blood Cells % 0.0 Neutrophils # 7.1 Lymphocytes # 1.3 Monocytes # 0.4 Eosinophils # 0.1 Basophils # 0.0 Nucleated Red Blood Cells # 0.0 Sodium Level 127 L Potassium Level 3.8 Chloride Level 91 L Carbon Dioxide Level 26 Anion Gap 14 Blood Urea Nitrogen 20 Creatinine 0.79 Glucose Level 141 Calcium Level 7.9 L Medications Medications Current Medications Metoclopramide HCl (Reglan) 10 mg Q6H PRN IV NAUSEA AND/OR VOMITING Last administered on 05/28/16 19:55; Admin Dose 10 MG; Start 05/26/16 at 08:00 Acetaminophen (Tylenol Supp) 650 mg Q6H PRN [place] PAIN LEVEL 1-3 OR FEVER; Start 05/26/16 at 08:00 Morphine Sulfate (morphine) 2 mg Q4H PRN IV SEVERE PAIN LEVEL 7-10; Start 05/26 at 08:00 Ondansetron HCl (Zofran Inj) 4 mg Q6H PRN IV NAUSEA AND/OR VOMITING Last administered on 05/29/16 06:55; Admin Dose 4 MG; Start 05/29/16 at 00:00 Famotidine 20 mg 20 mg BID IV Last administered on 06/06/16 09:48; Admin Dose 20 MG; Start 05/29/16 at 09:00 Dextrose 1,000 ml @ 50 mls/hr Q20H IV Last administered on 06/06/16 05:20; Admin Dose 50 MLS/HR; Start 06/04/16 at 14:00 Fluorouracil/ Dextrose (Adrucil/D5W) 500 ml @ 21.739 mls/ hr Q23H IV Last administered on 06/05/16 19:51; Admin Dose 21.739 MLS/HR; Start 06/04/16 at 17:30 ; Stop 06/06/16 at 15:29 ELLIOTT ALEMAN Jun 06, 2016 11:51
[2016-06-06] MEDS ORDERED: SOD CHLORIDE 0.9% 1,000 ML IV SCH (12:00)
--- NOTE | 2016-06-06 12:14 | CONS ---
Date/Time of Note Date/Time of Note DATE: 06/06/16 TIME: 12:13 Assessment/Plan Assessment/Plan Chief Complaint/Hosp Course 60 year old male who presented to the emergency room at [facility] with epigastric pain x 1 week associated with nausea and nonbloody, nonbilious emesis and found to have gastric outlet obstruction due to malignancy (? primary duodenal metastatic to colon vs. reverse) s/p duodenal stent 06/02/16. - CT A/P at [facility] demonstrated distended stomach secondary to a duodenal mass causing obstruction at the third portion of the duodenum. Pt is also noted to have periduodenal lymphadenopathy with largest confluent mass 2.6 x 3.9 cm and multiple additional smaller nodes. Also seen is a 2.3 x 2.9 cm mass lying above the bladder may represent a drop metastasis. - Repeat CT CAP 05/27/16 showed 1. There is a infiltrative submucosal mass roughly 3.2 cm in length by 3.2 cm transverse involving the proximal third portion of the duodenum resulting in a partial obstruction of the stomach and proximal duodenum. Lymphoma or other duodenal cancer might present this fashion. There is thickening of the mucosa in the cardia of the stomach of unknown significance. Endoscopy may be helpful in evaluation. 2. There is an infiltrative mass involving the cecum and ascending colon extending beyond the serosa into the adjacent mesentery with abnormal mesenteric lymph nodes medial to the ascending colon. These measure up to 1.2 cm. Additional abnormal retroperitoneal lymph nodes are noted as described above. 3. There is matting of small bowel loops medial to the ascending colon which are suspicious for carcinomatosis. 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 -- There are scattered intralymphatic tumor emboli within adjacent small intestinal villi. COMMENT: Findings are discussed Dr. Sean De on 05/30/2016 at 9:00 a.m. This tumor may represent a duodenal primary; however, because of the extensive lymphatic invasion, the possibility of metastatic carcinoma or direct extension into the duodenum from an extraduodenal site should also be considered. Immunoperoxidase stains are pending to further characterize the tumor and a final report will be issued following review of the immunohistochemical stains. - Duodenal stent placed 06/02/16. Per Dr. De, almost complete obstruction second and third part of the duodenum. Successful 9 cm stent deployed, and the symptoms got completely resolved. Per Dr. De, proceed with chemotherapy. Discussed with niesha Parikh to start chemotherapy and defer colonoscopy since would not spinning frame changer at this point. - Port a cath was placed 06/01/16 in preparation for chemotherapy. Patient started on FOLFOX chemotherapy on 06/04/16. - CEA elevated at 13.1. Will continue to monitor this as patient starts chemotherapy - I have requested KRAS, NRAS, BRAF and MSI testing to be performed on surgical specimen - Elevated hematocrit likely secondary to dehydration, as acute onset in the setting of elevated Cr, BUN, Na, continue to monitor - There is no role for surgery at this time Case was discussed with Dr. Byrne, Dr. De and the family who concur with the above plan Dispo pending completion of chemotherapy Problems: Consultation Date/Type/Reason Admit Date/Time May 26, 2016 at 06:29 Initial Consult Date 05/26/16 Type of Consultation: Hematology/Oncology Referring Provider: SHANAE LEWIS MD 24 HR Interval Summary Free Text/Dictation Patient tolerating chemotherapy well. Exam/Review of Systems Vital Signs Vitals Vital Signs Date Time Temp Pulse Resp B/P Pulse Ox O2 Delivery O2 Flow Rate FiO2 06/06/16 08:37 99.6 83 18 108/71 96 06/06/16 03:45 Room Air Intake and Output 06/05/16 06/05/16 06/06/16 15:00 23:00 07:00 Intake Total 2575.57 ml 1195.57 ml Output Total 1180 ml 1600 ml Balance 1395.57 ml -404.43 ml Exam Constitutional: alert, oriented Psych: no complaints Head: atraumatic, normocephalic Eyes: nl conjunctiva ENMT: nl external ears & nose Neck: non-tender, supple Respiratory: clear to auscultation, other (chest wall port in place) Cardiovascular: regular rate and rhythm Gastrointestinal: soft Results Result Diagram: 06/06/16 0435 06/06/16 0435 Results 24 hrs Laboratory Tests Test 06/06/16 04:35 White Blood Count 8.8 # Red Blood Count 4.69 L Hemoglobin 14.1 Hematocrit 41.4 L Mean Corpuscular Volume 88.3 Mean Corpuscular Hemoglobin 30.1 Mean Corpuscular Hemoglobin Concent 34.1 Red Cell Distribution Width 12.3 Platelet Count 151 Mean Platelet Volume 11.2 H Neutrophils % 80.2 H Lymphocytes % 14.3 L Monocytes % 4.2 Eosinophils % 0.7 Basophils % 0.0 Nucleated Red Blood Cells % 0.0 Neutrophils # 7.1 Lymphocytes # 1.3 Monocytes # 0.4 Eosinophils # 0.1 Basophils # 0.0 Nucleated Red Blood Cells # 0.0 Sodium Level 127 L Potassium Level 3.8 Chloride Level 91 L Carbon Dioxide Level 26 Anion Gap 14 Blood Urea Nitrogen 20 Creatinine 0.79 Glucose Level 141 Calcium Level 7.9 L Medications Medications Current Medications Metoclopramide HCl (Reglan) 10 mg Q6H PRN IV NAUSEA AND/OR VOMITING Last administered on 05/28/16 19:55; Admin Dose 10 MG; Start 05/26/16 at 08:00 Acetaminophen (Tylenol Supp) 650 mg Q6H PRN [place] PAIN LEVEL 1-3 OR FEVER; Start 05/26/16 at 08:00 Morphine Sulfate (morphine) 2 mg Q4H PRN IV SEVERE PAIN LEVEL 7-10; Start 05/26 at 08:00 Ondansetron HCl (Zofran Inj) 4 mg Q6H PRN IV NAUSEA AND/OR VOMITING Last administered on 05/29/16 06:55; Admin Dose 4 MG; Start 05/29/16 at 00:00 Famotidine 20 mg 20 mg BID IV Last administered on 06/06/16 09:48; Admin Dose 20 MG; Start 05/29/16 at 09:00 Fluorouracil 2220 mg/Dextrose 500 ml @ 21.739 mls/ hr Q23H IV Last administered on 06/05/16 19:51; Admin Dose 21.739 MLS/HR; Start 06/04/16 at 17:30 ; Stop 06/06/16 at 15:29 Dextrose/Sodium Chloride (D5-1/2ns) 1,000 ml @ 75 mls/hr [id number] IV ; Start 06/06/16 at 12:30; Status UNV TO,DARBY Mason MD Jun 06, 2016 12:14
[2016-06-06] MEDS: DEXTROSE 5%-0.45% NACL 1,000 ML IV SCH (13:30)
--- NOTE | 2016-06-06 18:53 | CONS ---
Date/Time of Note Date/Time of Note DATE: 06/06/16 TIME: 18:51 Assessment/Plan Assessment/Plan Additional Assessment/Plan IMPRESSION 1. Blockage of the second and third part of the duodenum, secondary to tumor. The blockage successfully relieved by deploying the stent, and the patient is able to eat now. 2. Dehydration. 3. The tumor, which was originally reported as an adenocarcinoma, now it is originating from the urethra, as per Dr. Gardiner. 4. Leukocytosis PLAN 1. Chemotherapy, as per Dr. Debbie Flores.discussed new findings with 2. IV hydration. 3. Continue mechanical soft diet. Consultation Date/Type/Reason Admit Date/Time May 26, 2016 at 06:29 Initial Consult Date 05/26/16 Type of Consultation: Hematology/Oncology Referring Provider: SHANAE LEWIS MD 24 HR Interval Summary Free Text/Dictation tolerating solid food Constitutional: improved, no complaints Exam/Review of Systems Vital Signs Vitals Vital Signs Date Time Temp Pulse Resp B/P Pulse Ox O2 Delivery O2 Flow Rate FiO2 06/06/16 08:37 99.6 83 18 108/71 96 06/06/16 03:45 Room Air Intake and Output 06/05/16 06/05/16 06/06/16 15:00 23:00 07:00 Intake Total 2575.57 ml 1195.57 ml Output Total 1180 ml 1600 ml Balance 1395.57 ml -404.43 ml Exam Constitutional: alert, oriented, well developed Psych: nl mood/affect, no complaints Head: atraumatic, normocephalic Eyes: EOMI, PERRL, nl conjunctiva, nl lids, nl sclera ENMT: nl external ears & nose, nl lips & teeth, nl nasal mucosa & septum Neck: non-tender, supple Respiratory: clear to auscultation, normal air movement Cardiovascular: nl pulses, regular rate and rhythm Gastrointestinal: nl liver, spleen, non-tender, soft Musculoskeletal: nl extremities to inspection, nl gait and stance Extremities: normal pulses Neurological: FOUNDATION STAGE TEACHER II-XII intact, nl mental status, nl speech, nl strength Skin: nl turgor, No rash or lesions Lymph: nl lymph nodes Results Result Diagram: 06/06/16 0435 06/06/16 0435 Results 24 hrs Laboratory Tests Test 06/06/16 04:35 White Blood Count 8.8 # Red Blood Count 4.69 L Hemoglobin 14.1 Hematocrit 41.4 L Mean Corpuscular Volume 88.3 Mean Corpuscular Hemoglobin 30.1 Mean Corpuscular Hemoglobin Concent 34.1 Red Cell Distribution Width 12.3 Platelet Count 151 Mean Platelet Volume 11.2 H Neutrophils % 80.2 H Lymphocytes % 14.3 L Monocytes % 4.2 Eosinophils % 0.7 Basophils % 0.0 Nucleated Red Blood Cells % 0.0 Neutrophils # 7.1 Lymphocytes # 1.3 Monocytes # 0.4 Eosinophils # 0.1 Basophils # 0.0 Nucleated Red Blood Cells # 0.0 Sodium Level 127 L Potassium Level 3.8 Chloride Level 91 L Carbon Dioxide Level 26 Anion Gap 14 Blood Urea Nitrogen 20 Creatinine 0.79 Glucose Level 141 Calcium Level 7.9 L Medications Medications Current Medications Metoclopramide HCl (Reglan) 10 mg Q6H PRN IV NAUSEA AND/OR VOMITING Last administered on 05/28/16 19:55; Admin Dose 10 MG; Start 05/26/16 at 08:00 Acetaminophen (Tylenol Supp) 650 mg Q6H PRN [place] PAIN LEVEL 1-3 OR FEVER; Start 05/26/16 at 08:00 Morphine Sulfate (morphine) 2 mg Q4H PRN IV SEVERE PAIN LEVEL 7-10; Start 05/26 at 08:00 Ondansetron HCl (Zofran Inj) 4 mg Q6H PRN IV NAUSEA AND/OR VOMITING Last administered on 05/29/16 06:55; Admin Dose 4 MG; Start 05/29/16 at 00:00 Famotidine 20 mg 20 mg BID IV Last administered on 06/06/16 09:48; Admin Dose 20 MG; Start 05/29/16 at 09:00 Dextrose/Sodium Chloride (D5-1/2ns) 1,000 ml @ 75 mls/hr [id number] IV Last administered on 06/06/16 13:30; Admin Dose 75 MLS/HR; Start 06/06/16 at 12:30 TIANNA SALINAS MD Jun 06, 2016 18:53
[2016-06-06 19:45] VITALS: BP 116/70; RESP 17
[2016-06-07] MEDS: DEXTROSE 5%-0.45% NACL 1,000 ML IV SCH ×2 (02:35→16:01)
[2016-06-07 05:40] LABS: ADD SCAN DIFF NO
[2016-06-07 05:50] LABS: EOSINOPHILS # 0.1 10^3/ul (0.0-0.5); EOSINOPHILS % 0.9 % (0.0-7.0); HEMATOCRIT 41.2 % (42.0-52.0); HEMOGLOBIN 14.3 g/dl (14.0-18.0); LYMPHOCYTES # 1.1 10^3/ul (0.8-2.9); LYMPHOCYTES % 16.3 % (15.0-51.0); MEAN CORPUSCULAR HEMOGLOBIN 30.1 pg (29.0-33.0); MEAN CORPUSCULAR HGB CONC 34.7 g/dl (32.0-37.0); MEAN CORPUSCULAR VOLUME 86.7 fl (82.0-101.0); MEAN PLATELET VOLUME 11.5 fl (7.4-10.4); MONOCYTE # 0.1 10^3/ul (0.3-0.9); MONOCYTES % 1.1 % (0.0-11.0); NEUTROPHIL # 5.7 10^3/ul (1.6-7.5); NEUTROPHILS % 81.4 % (39.0-77.0); PLATELET COUNT 141 10^3/UL (140-415); RED BLOOD COUNT 4.75 10^6/ul (4.70-6.10); RED CELL DISTRIBUTION WIDTH 12.3 % (11.5-14.5)
[2016-06-07 06:06] LABS: PHOSPHORUS 2.9 mg/dl (2.5-4.9); POTASSIUM 3.3 mmol/L (3.5-5.1)
[2016-06-07 06:08] LABS: CREATININE 0.7 mg/dl (0.61-1.24)
[2016-06-07 06:09] LABS: CALCIUM 7.8 mg/dl (8.4-10.2)
[2016-06-07 07:51] LABS: ALBUMIN 2.6 g/dl (3.3-4.9)
[2016-06-07 07:53] LABS: BILIRUBIN,DIRECT 2.9 mg/dl (0.00-0.20); BILIRUBIN,INDIRECT 1.4 mg/dl (0-1.1); BILIRUBIN,TOTAL 4.3 mg/dl (0.2-1.3)
[2016-06-07 07:54] LABS: TOTAL PROTEIN 5.7 g/dl (6.1-8.1)
[2016-06-07 08:16] VITALS: BP 107/71; RESP 16
[2016-06-07] MEDS: FAMOTIDINE 20 MG INJ IV SCH ×2 (08:44→20:44)
--- NOTE | 2016-06-07 11:47 | PDOCDIS ---
Discharge Instructions DIAGNOSIS Discharge Diagnosis: Adenocarcinoma of urologic origin CONDITION Patient Condition: Stable HOME CARE INSTRUCTIONS: Diet Instructions: Low Fat /CholesterolSpecial Diet: SOFT DIET FOLLOW UP/APPOINTMENTS Appointments Follow up with the following doctors. Call their offices for appointments Name, Degree: Leny Mercado MD Specialty: Oncology, Hematology Comments: Office Address: [address] [facility] [address] [place] [address] Office Office Name, Degree: Sean De MD Specialty: Gastroenterology Comments: Office Address: [address] [facility] [address] [place] [id number] Office Office Also Followup with your primary doctor within the next 1-2 weeks. If you don't have one please let someone know, we can give you resources that may help you pick one. You may also call your insurance company to assign one to you. Review your medication list with your nurse before leaving and if you need new prescriptions please let your nurse know. I may have made changes to your home medications or given you new prescriptions , please let your primary doctor know as well. Stay compliant with your medications and report any side effects to your PCP or pharmacist. Return to the ER if you have any concerns and cannot reach your doctors or call your insurance company, they usually have a nurse that can help you. ELLIOTT ALEMAN Jun 07, 2016 11:47
[2016-06-07] MEDS ORDERED: ONDA-43 ODT (11:49)
[2016-06-07] MEDS ORDERED: DOCU-144 PO (11:49)
[2016-06-07] MEDS ORDERED: HYDR-906 PO (11:49)
[2016-06-07] MEDS ORDERED: POTASSIUM CHLORIDE 250 ML IVPB ONE (12:00)
--- NOTE | 2016-06-07 13:52 | DS ---
DATE OF ADMISSION: 05/26/2016 DATE OF DISCHARGE: 06/07/2016 ADDENDUM Due to the patient's elevated liver enzymes, GI has ordered an ultrasound to ensure there is no bloc kage of the common bile duct. The discharge will be pending clearance from GI standpoint. Also, th e patient was noted to be hyponatremic, but this is improved, likely secondary to the combination of hypoalbuminemia not enough fluid intake. The patient is advised to drinks a lot of fluids versus f ree water over the next couple of days. I have reviewed this with nephrology and patient remained s table for discharge from their standpoint. Dictated By: ELLIOTT ALEMAN MD, BA/ANN MARIE Conf#: [id number] DID#: [id number]
--- NOTE | 2016-06-07 14:25 | CONS ---
Date/Time of Note Date/Time of Note DATE: 06/07/16 TIME: 14:09 Assessment/Plan Assessment/Plan Chief Complaint/Hosp Course 60 year old male who presented to the emergency room at [facility] with epigastric pain x 1 week associated with nausea and nonbloody, nonbilious emesis and found to have gastric outlet obstruction due to malignancy (? primary duodenal metastatic to colon vs. reverse) s/p duodenal stent 06/02/16. - CT A/P at [facility] demonstrated distended stomach secondary to a duodenal mass causing obstruction at the third portion of the duodenum. Pt is also noted to have periduodenal lymphadenopathy with largest confluent mass 2.6 x 3.9 cm and multiple additional smaller nodes. Also seen is a 2.3 x 2.9 cm mass lying above the bladder may represent a drop metastasis. - Repeat CT CAP 05/27/16 showed 1. There is a infiltrative submucosal mass roughly 3.2 cm in length by 3.2 cm transverse involving the proximal third portion of the duodenum resulting in a partial obstruction of the stomach and proximal duodenum. Lymphoma or other duodenal cancer might present this fashion. There is thickening of the mucosa in the cardia of the stomach of unknown significance. Endoscopy may be helpful in evaluation. 2. There is an infiltrative mass involving the cecum and ascending colon extending beyond the serosa into the adjacent mesentery with abnormal mesenteric lymph nodes medial to the ascending colon. These measure up to 1.2 cm. Additional abnormal retroperitoneal lymph nodes are noted as described above. 3. There is matting of small bowel loops medial to the ascending colon which are suspicious for carcinomatosis. Prelim path Small bowel biopsy: -- Adenocarcinoma, poorly-differentiated, involving small intestinal submucosa and focally the mucosal surface. -- There are scattered intralymphatic tumor emboli within adjacent small intestinal villi. COMMENT: Findings are discussed Dr. Sean De on 05/30/2016 at 9:00 a.m. This tumor may represent a duodenal primary; however, because of the extensive lymphatic invasion, the possibility of metastatic carcinoma or direct extension into the duodenum from an extraduodenal site should also be considered. Immunoperoxidase stains are pending to further characterize the tumor and a final report will be issued following review of the immunohistochemical stains. Final path Small bowel biopsy: -- Metastatic poorly-differentiated, most consistent with urothelial origin. - Duodenal stent placed 06/02/16. Per Dr. De, almost complete obstruction second and third part of the duodenum. Successful 9 cm stent deployed, and the symptoms got completely resolved. - Port a cath was placed 06/01/16 in preparation for chemotherapy. Patient started on FOLFOX chemotherapy on 06/04/16 based on prelim path and clinical picture suggesting GI primary and severe obstructive symptoms. Further path review, however, and IHC suggests primary. 5FU does have activity in bladder cancer, however as an outpatient the patient will be switched to gemcitaine/akut[place] based chemotherapy specifically for bladder cancer therapy. - LFTs elevated, pending abdominal US per GI - There is no role for surgery at this time Case was discussed with Dr. Byrne, Dr. De and the family who concur with the above plan Dispo pending abdominal US Problems: Consultation Date/Type/Reason Admit Date/Time May 26, 2016 at 06:29 Initial Consult Date 05/26/16 Type of Consultation: Hematology/Oncology Referring Provider: SHANAE LEWIS MD 24 HR Interval Summary Free Text/Dictation Patient is feeling well, eating well and ambulating without difficulty. He finished chemotherapy last night around 9 p.m. He had a documented temperature to 100.6 last night, but nursing had noted that he had been covered with blankets and temperature had gone down on re-check. He states that he felt fine last night and currently. Exam/Review of Systems Vital Signs Vitals Vital Signs Date Time Temp Pulse Resp B/P Pulse Ox O2 Delivery O2 Flow Rate FiO2 06/07/16 08:16 98.7 82 16 107/71 99 06/06/16 03:45 Room Air Intake and Output 06/06/16 06/06/16 06/07/16 15:00 23:00 07:00 Intake Total 600 ml 42 ml 1575 ml Output Total 1300 ml Balance 600 ml 42 ml 275 ml Exam Constitutional: alert, oriented Psych: no complaints Head: atraumatic, normocephalic Eyes: nl conjunctiva ENMT: nl external ears & nose Neck: non-tender, supple Respiratory: clear to auscultation, other (chest wall port in place) Cardiovascular: regular rate and rhythm Gastrointestinal: soft Results Result Diagram: 06/07/16 0440 06/07/16 0440 Results 24 hrs Laboratory Tests Test 06/07/16 04:40 06/07/16 05:13 White Blood Count 7.0 # Red Blood Count 4.75 Hemoglobin 14.3 Hematocrit 41.2 L Mean Corpuscular Volume 86.7 Mean Corpuscular Hemoglobin 30.1 Mean Corpuscular Hemoglobin Concent 34.7 Red Cell Distribution Width 12.3 Platelet Count 141 Mean Platelet Volume 11.5 H Neutrophils % 81.4 H Lymphocytes % 16.3 Monocytes % 1.1 Eosinophils % 0.9 Basophils % 0.0 Nucleated Red Blood Cells % 0.0 Neutrophils # 5.7 Lymphocytes # 1.1 Monocytes # 0.1 L Eosinophils # 0.1 Basophils # 0.0 Nucleated Red Blood Cells # 0.0 Sodium Level 129 L Potassium Level 3.3 L Chloride Level 93 L Carbon Dioxide Level 26 Anion Gap 13 Blood Urea Nitrogen 15 Creatinine 0.70 Glucose Level 146 Calcium Level 7.8 L Phosphorus Level 2.9 Magnesium Level 2.0 Total Bilirubin 4.3 H Direct Bilirubin 2.90 H Indirect Bilirubin 1.4 H Aspartate Amino Transf (AST/SGOT) 120 H Alanine Aminotransferase (ALT/SGPT) 194 H Alkaline Phosphatase 272 H Total Protein 5.7 L Albumin 2.6 L Medications Medications Current Medications Metoclopramide HCl (Reglan) 10 mg Q6H PRN IV NAUSEA AND/OR VOMITING Last administered on 05/28/16 19:55; Admin Dose 10 MG; Start 05/26/16 at 08:00 Acetaminophen (Tylenol Supp) 650 mg Q6H PRN [place] PAIN LEVEL 1-3 OR FEVER; Start 05/26/16 at 08:00 Morphine Sulfate (morphine) 2 mg Q4H PRN IV SEVERE PAIN LEVEL 7-10; Start 05/26 at 08:00 Ondansetron HCl (Zofran Inj) 4 mg Q6H PRN IV NAUSEA AND/OR VOMITING Last administered on 05/29/16 06:55; Admin Dose 4 MG; Start 05/29/16 at 00:00 Famotidine 20 mg 20 mg BID IV Last administered on 06/07/16 08:44; Admin Dose 20 MG; Start 05/29/16 at 09:00 Dextrose/Sodium Chloride 1,000 ml @ 75 mls/hr [id number] IV Last administered on 06/07/16 02:35; Admin Dose 75 MLS/HR; Start 06/06/16 at 12:30 Potassium Chloride (KCl 40 MEQ/250 ML NS) 250 ml @ 62.5 mls/hr ONCE ONCE IVPB ; Start 06/07/16 at 12:00; Stop 06/07/16 at 15:59 TODARBY MD Jun 07, 2016 14:19
--- NOTE | 2016-06-07 17:21 | DS ---
DATE OF ADMISSION: 05/26/2016 DATE OF DISCHARGE: 06/07/2016 PRESENTING COMPLAINT: Stomach mass, distended stomach, intractable abdominal pain, rule out metastatic cancer ADMISSION DIAGNOSES: A 60-year-old male transferred from [facility] for further workup of duodenal mass and intractable abdominal pain managed for: 1. Duodenal mass that approximately 2.6 x 3.9 cm size with periduodenal lymphadenopathy concerning for malignancy. 2. Intractable abdominal pain secondary to mass. 3. Distended stomach, likely secondary to obstruction from the mass. 4. Mass above bladder concerning for metastasis. CONSULTS ON THE CASE: Dr. Debbie Flores and Dr. De. INTERVENTIONS: This patient was managed extensively in the hospital based on his diagnoses as above. One of the first things that was done was to institute good pain control. The patient was then seen by surgery, Dr. yRley Boudreaux, hematology/oncology, Dr. Leny Mercado, and GI, Dr. De. Oncology recommended checking a CEA and CT chest, abdomen and pelvis was done for staging and evaluation for metastasis. Surgery saw the patient and recommended GI to proceed with EGD and biopsy. GI saw the patient and planned for an EGD. EGD was done 05/30/2016 and the patient was found to have a gastric outlet obstruction where 1600 mL of bile juice was removed. Extensive circumferential patchy esophageal ulceration in the distal part of the esophagus and obstruction of the third part of duodenum from growth, for which multiple biopsies were obtained. On 06/03/2016, the patient had an another EGD and a duodenal stent was placed, 9 cm in length. The decision was made to hold off on getting a colonoscopy until the stent was completely opened up. The patient did well with these measures and the staging CT abdomen and pelvis that was done 05/27/2016, showed infiltrating mass in the cecum and ascending colon with abnormal retroperitoneal lymph nodes, lesions on small bowel loops suspicious for carcinomatosis, bilateral inguinal hernias, enlarged prostate gland. In the chest, there was no enlarged mediastinal and hilar lymph nodes and no tumor noted. The patient also had a port placed 06/01/2016 for chemotherapy and eventually was started on chemotherapy in house by Sandra. At this point, he has completed his fourth round of chemotherapy. His CA was elevated at 13.1 and oncology has cleared him for discharge for continued chemo as an outpatient. The patient is also tolerating diet and has tolerated his chemotherapy quite well. Oncology has also documented that there is no indication for surgery at this time, and the patient should continue to be assessed for need for surgery as he continued with his chemo, DIAGNOSES: 1. 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 2. Intractable abdominal pain secondary to duodenal mass secondary to metastatic adenocarcinoma, now resolved. 3. Gastric outlet obstruction secondary to mass, status post duodenal stent. 4. Hyponatremia, which is likely pseudohyponatremia secondary to hypoalbuminemia that is improving. 5. Acute transaminitis with hyperbilirubinemia, which could be secondary to his liver infiltration versus drugs. Will need to be monitored. 5. Hypokalemia, status post repletion. DISPOSITION: To home. FOLLOWUP: Outpatient followup is recommended with Hematology/Oncology for continued chemo, the patient's primary care physician to update him on his new diagnosis and current regimen, as well as GI as per his recommendations to determine when and if a colonoscopy is indicated. This has all been communicated to the patient in detail. DISCHARGE CONDITION: Stable. RECOMMENDED DIET: Low cholesterol, low fat, high fiber diet. ACTIVITIES: As tolerated. Time spent in discharge coordination has been more than 50 minutes. For further information and clarifications, please review the patient's chart and my orders. Dictated By: ELLIOTT ALEMAN MD, BA/ANN MARIE Conf#: [id number] DID#: [id number] MTDD
--- NOTE | 2016-06-07 17:32 | PN ---
Date/Time of Note Date/Time of Note DATE: 06/07/16 TIME: 17:29 Assessment/Plan Lines/Catheters IV Catheter Type (from [facility]): Peripheral IV [place] in Place (from [facility]): No Assessment/Plan Chief Complaint/Hosp Course 1. Duodenal mass with lymphadenopathy with significant narrowing s/p EGD/ stenting by Dr. De 06/02 2nd metastatic urothelial malignancy. Possible colonic vs intraabdominal lesions. -eventual colonoscopy -diet as tolerated -chemo per onc -further w/u as inpt vs outpt per oncology 2. Steatosis -Eventual nutrition and lifestyle optimization 3. Weight loss probably secondary to above -As above Thank you, Problems: Subjective 24 Hr Interval Summary Low grade temp. Tolerating diet. Path with urologic origin. No chills. No chest pain or shortness of breath. No cough. No seizure. No headache, visual , or neurologic changes. No dysuria. Exam/Review of Systems Vital Signs Vitals Vital Signs Date Time Temp Pulse Resp B/P Pulse Ox O2 Delivery O2 Flow Rate FiO2 06/07/16 08:16 98.7 82 16 107/71 99 06/06/16 03:45 Room Air Intake and Output 06/06/16 06/06/16 06/07/16 15:00 23:00 07:00 Intake Total 600 ml 42 ml 1575 ml Output Total 1300 ml Balance 600 ml 42 ml 275 ml Exam Free Text/Dictation Constitutional: alert, oriented, No distress Psych: nl mood/affect, No anxiety, No confusion Head: atraumatic, normocephalic Eyes: EOMI, PERRL, nl conjunctiva, No icteric ENMT: mucosa pink and moist, nl external ears & nose, nl lips & teeth Neck: non-tender, supple, No jvd, No masses Respiratory: normal air movement, No congested cough, No labored breathing Cardiovascular: regular rate and rhythm, No edema Gastrointestinal: non-tender, soft, No distended, No rebound or guarding Genitourinary - Male: nl scrotum Musculoskeletal: nl extremities to inspection, nl gait and stance, No joint tenderness Extremities: normal pulses, No calf tenderness, No cyanosis Neurological: nl mental status, nl speech, nl strength Skin: nl turgor, No diaphoresis, No rash or lesions Lymph: No nl lymph nodes (Inguinal) Results Free Text/Dictation Path: MICROSCOPIC DESCRIPTION: Biopsies of small bowel demonstrates a malignant neoplasm involving several fragments. Tumor is composed of nests and coalescent sheets of polygonal cells with round to irregular vesicular and mildly hyperchromatic nuclei occasionally containing small nucleoli. Cells diffusely involve the submucosa of two fragments, focally extending into overlying mucosa and in one area to the mucosal surface. There are rare microacini. Tumor cells also penetrate lymphatics of villi and underlying lamina propria in several areas. The remaining uninvolved mucosa shows normal villi without parasites or any other abnormalities. The histopathologic features are those of poorly differentiated adenocarcinoma. Primary duodenal adenocarcinoma is considered; however, because of the diffuse lymphatic invasion and extensive submucosal involvement in some fragments, metastatic carcinoma from an extraduodenal site, or invasion by carcinoma in an adjacent organ, such as pancreas, should be considered in the differential diagnosis. To further characterize the tumor, the paraffin block is forwarded to [facility] for a performance of a panel immunohistochemical stains. Stains are accompanied by appropriate positive and negative controls, all of which work correctly. Results of staining on the malignant cells are as follows: CD56: Negative CDX2: Negative Chromogranin A: Negative CK5/6: Negative CK7: Positive, cytoplasmic CK17: Positive, focal, cytoplasmic CK20: Positive, cytoplasmic GATA3: Positive, nuclear MUC5: Positive, cytoplasmic Napsin A: Negative p40: Negative SATB2: Negative Synaptophysin: Negative Thrombomodulin TTF1: Negative Uroplakin II: Positive, cytoplasmic Uroplakin III: Negative Villin: Weakly positive in a few cells The immunohistochemical staining pattern of positive CK7, CK20, GATA3 and Uroplakin II is most consistent with metastatic carcinoma of urothelial origin. FINAL MICROSCOPIC DIAGNOSIS: Small bowel biopsy: -- Metastatic poorly-differentiated, most consistent with urothelial origin. Result Diagram: 06/07/16 0440 06/07/16 0440 DIAMOND FITZGERALD MD Jun 07, 2016 17:32
--- NOTE | 2016-06-07 18:09 | RADRPT ---
PROCEDURE: US Abdomen (right upper quadrant). CLINICAL INDICATION: Right upper quadrant abdomen pain. TECHNIQUE: Multiple real-time longitudinal and transverse images of the right upper quadrant of th e abdomen were acquired utilizing a curved array transducer. Images were reviewed on a high-resoluti on PACS workstation. COMPARISON: None FINDINGS: The liver is normal in size and diffusely increased in echogenicity consistent with fatty metamorpho sis. There is no focal hepatic lesion. Color Doppler and pulsed Doppler sonography demonstrate normal a ntegrade flow in the portal vein. There is sludge in the gallbladder. The gallbladder is otherwise normal with no stones or wall thic kening. There is no pericholecystic fluid collection. The bile ducts are normal with the common bile duct measuring 3.2 mm in diameter. The visualized portions of the pancreas are unremarkable with obscuration of the tail of the pancrea s. No free fluid is present. The right kidney measures 10.2 cm. There is normal echogenicity of the right kidney. There is no perinephric fluid collection. No hydronephrosis, mass, or calculus is seen. IMPRESSION: 1. Fatty metamorphosis of the liver. 2. Sludge in the gallbladder. No gallstones or evidence of cholecystitis. 3. Otherwise normal right upper quadrant abdomen ultrasound. RPTAT: QQ .Naldo Oneal MD, Date Time Electronically viewed and signed by .Naldo Oneal MD, on 06/07/2016 18:09 .R/
--- NOTE | 2016-06-07 19:00 | CONS ---
Date/Time of Note Date/Time of Note DATE: 06/07/16 TIME: 18:59 Assessment/Plan Assessment/Plan Additional Assessment/Plan Additional Assessment/Plan IMPRESSION 1. Blockage of the second and third part of the duodenum, secondary to tumor. The blockage successfully relieved by deploying the stent, and the patient is able to eat now. 2. Dehydration. 3. The tumor, which was originally reported as an adenocarcinoma, now it is originating from the urethra, as per Dr. Gardiner. 4. Leukocytosis resolved 5. Abnormal liver function tests, rule out chemo induced versus biliary obstruction PLAN 1. Chemotherapy, as per oncologist. 2. IV hydration. 3. Continue mechanical soft diet. 4. Ultrasound of the biliary system to make sure there is no obstruction. Consultation Date/Type/Reason Admit Date/Time May 26, 2016 at 06:29 Initial Consult Date 05/26/16 Type of Consultation: Hematology/Oncology Referring Provider: SHANAE LEWIS MD 24 HR Interval Summary Free Text/Dictation Patient denies of abdominal pain no nausea no vomiting tolerating solid food Constitutional: improved, no complaints Exam/Review of Systems Vital Signs Vitals Vital Signs Date Time Temp Pulse Resp B/P Pulse Ox O2 Delivery O2 Flow Rate FiO2 06/07/16 08:16 98.7 82 16 107/71 99 06/06/16 03:45 Room Air Intake and Output 06/06/16 06/06/16 06/07/16 15:00 23:00 07:00 Intake Total 600 ml 42 ml 1575 ml Output Total 1300 ml Balance 600 ml 42 ml 275 ml Exam Constitutional: alert, oriented, well developed Psych: nl mood/affect, no complaints Head: atraumatic, normocephalic Eyes: EOMI, PERRL, nl conjunctiva, nl lids, nl sclera ENMT: nl external ears & nose, nl lips & teeth, nl nasal mucosa & septum Neck: non-tender, supple Respiratory: clear to auscultation, normal air movement Cardiovascular: nl pulses, regular rate and rhythm Gastrointestinal: nl liver, spleen, non-tender, soft Musculoskeletal: nl extremities to inspection, nl gait and stance Extremities: normal pulses Neurological: TALENT ACQUISITION MANAGER II-XII intact, nl mental status, nl speech, nl strength Skin: nl turgor, No rash or lesions Lymph: nl lymph nodes Results Result Diagram: 06/07/16 0440 06/07/160 Results 24 hrs Laboratory Tests Test 06/07/16 04:40 06/07/16 05:13 White Blood Count 7.0 # Red Blood Count 4.75 Hemoglobin 14.3 Hematocrit 41.2 L Mean Corpuscular Volume 86.7 Mean Corpuscular Hemoglobin 30.1 Mean Corpuscular Hemoglobin Concent 34.7 Red Cell Distribution Width 12.3 Platelet Count 141 Mean Platelet Volume 11.5 H Neutrophils % 81.4 H Lymphocytes % 16.3 Monocytes % 1.1 Eosinophils % 0.9 Basophils % 0.0 Nucleated Red Blood Cells % 0.0 Neutrophils # 5.7 Lymphocytes # 1.1 Monocytes # 0.1 L Eosinophils # 0.1 Basophils # 0.0 Nucleated Red Blood Cells # 0.0 Sodium Level 129 L Potassium Level 3.3 L Chloride Level 93 L Carbon Dioxide Level 26 Anion Gap 13 Blood Urea Nitrogen 15 Creatinine 0.70 Glucose Level 146 Calcium Level 7.8 L Phosphorus Level 2.9 Magnesium Level 2.0 Total Bilirubin 4.3 H Direct Bilirubin 2.90 H Indirect Bilirubin 1.4 H Aspartate Amino Transf (AST/SGOT) 120 H Alanine Aminotransferase (ALT/SGPT) 194 H Alkaline Phosphatase 272 H Total Protein 5.7 L Albumin 2.6 L Medications Medications Current Medications Metoclopramide HCl (Reglan) 10 mg Q6H PRN IV NAUSEA AND/OR VOMITING Last administered on 05/28/16 19:55; Admin Dose 10 MG; Start 05/26/16 at 08:00 Acetaminophen (Tylenol Supp) 650 mg Q6H PRN [place] PAIN LEVEL 1-3 OR FEVER; Start 05/26/16 at 08:00 Morphine Sulfate (morphine) 2 mg Q4H PRN IV SEVERE PAIN LEVEL 7-10; Start 05/26 at 08:00 Ondansetron HCl (Zofran Inj) 4 mg Q6H PRN IV NAUSEA AND/OR VOMITING Last administered on 05/29/16 06:55; Admin Dose 4 MG; Start 05/29/16 at 00:00 Famotidine 20 mg 20 mg BID IV Last administered on 06/07/16 08:44; Admin Dose 20 MG; Start 05/29/16 at 09:00 Dextrose/Sodium Chloride (D5-1/2ns) 1,000 ml @ 75 mls/hr [id number] IV Last administered on 06/07/16t 16:01; Admin Dose 75 MLS/HR; Start 06/06/16 at 12:30 TIANNA SALINAS MD Jun 07, 2016 19:00
[2016-06-07 19:45] VITALS: BP 118/73; RESP 20
[2016-06-08] MEDS: DEXTROSE 5%-0.45% NACL 1,000 ML IV SCH ×2 (03:38→09:25)
[2016-06-08 05:11] LABS: ADD SCAN DIFF NO
[2016-06-08 05:21] LABS: EOSINOPHILS # 0.1 10^3/ul (0.0-0.5); EOSINOPHILS % 1.4 % (0.0-7.0); HEMATOCRIT 40.2 % (42.0-52.0); HEMOGLOBIN 13.7 g/dl (14.0-18.0); MEAN CORPUSCULAR HEMOGLOBIN 30.1 pg (29.0-33.0); MEAN CORPUSCULAR HGB CONC 34.1 g/dl (32.0-37.0); MEAN CORPUSCULAR VOLUME 88.4 fl (82.0-101.0); MEAN PLATELET VOLUME 11.5 fl (7.4-10.4); MONOCYTE # 0.1 10^3/ul (0.3-0.9); MONOCYTES % 0.9 % (0.0-11.0); NEUTROPHIL # 4.5 10^3/ul (1.6-7.5); NEUTROPHILS % 79.5 % (39.0-77.0); PLATELET COUNT 132 10^3/UL (140-415); RED BLOOD COUNT 4.55 10^6/ul (4.70-6.10); RED CELL DISTRIBUTION WIDTH 12.8 % (11.5-14.5); WHITE BLOOD COUNT 5.7 10^3/ul (4.8-10.8)
[2016-06-08 05:34] LABS: POTASSIUM 3.9 mmol/L (3.5-5.1)
[2016-06-08 05:37] LABS: CREATININE 0.65 mg/dl (0.61-1.24)
[2016-06-08 05:38] LABS: CALCIUM 7.6 mg/dl (8.4-10.2)
[2016-06-08 05:56] LABS: ALBUMIN 2.3 g/dl (3.3-4.9)
[2016-06-08 05:58] LABS: BILIRUBIN,DIRECT 1.1 mg/dl (0.00-0.20); BILIRUBIN,INDIRECT 1.4 mg/dl (0-1.1); BILIRUBIN,TOTAL 2.5 mg/dl (0.2-1.3)
[2016-06-08 05:59] LABS: MAGNESIUM 1.8 mg/dl (1.7-2.5); TOTAL PROTEIN 4.9 g/dl (6.1-8.1)
[2016-06-08 07:00] VITALS: BP 115/77; RESP 20
[2016-06-08] MEDS: FAMOTIDINE 20 MG INJ IV SCH ×2 (09:25→20:54)
--- NOTE | 2016-06-08 10:14 | CONS ---
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 primary duodenal metastatic to colon vs. reverse) s/p duodenal stent 06/02/16. - CT A/P at [place] demonstrated distended stomach secondary to a duodenal mass causing obstruction at the third portion of the duodenum. Pt is also noted to have periduodenal lymphadenopathy with largest confluent mass 2.6 x 3.9 cm and multiple additional smaller nodes. Also seen is a 2.3 x 2.9 cm mass lying above the bladder may represent a drop metastasis. - Repeat CT CAP 05/27/16 showed 1. There is a infiltrative submucosal mass roughly 3.2 cm in length by 3.2 cm transverse involving the proximal third portion of the duodenum resulting in a partial obstruction of the stomach and proximal duodenum. Lymphoma or other duodenal cancer might present this fashion. There is thickening of the mucosa in the cardia of the stomach of unknown significance. Endoscopy may be helpful in evaluation. 2. There is an infiltrative mass involving the cecum and ascending colon extending beyond the serosa into the adjacent mesentery with abnormal mesenteric lymph nodes medial to the ascending colon. These measure up to 1.2 cm. Additional abnormal retroperitoneal lymph nodes are noted as described above. 3. There is matting of small bowel loops medial to the ascending colon which are suspicious for carcinomatosis. Prelim path Small bowel biopsy: -- Adenocarcinoma, poorly-differentiated, involving small intestinal submucosa and focally the mucosal surface. -- There are scattered intralymphatic tumor emboli within adjacent small intestinal villi. COMMENT: Findings are discussed Dr. Sean De on 05/30/2016 at 9:00 a.m. This tumor may represent a duodenal primary; however, because of the extensive lymphatic invasion, the possibility of metastatic carcinoma or direct extension into the duodenum from an extraduodenal site should also be considered. Immunoperoxidase stains are pending to further characterize the tumor and a final report will be issued following review of the immunohistochemical stains. Final path Small bowel biopsy: -- Metastatic poorly-differentiated, most consistent with urothelial origin. - Duodenal stent placed 06/02/16. Per Dr. De, almost complete obstruction second and third part of the duodenum. Successful 9 cm stent deployed, and the symptoms got completely resolved. - Port a cath was placed 06/01/16 in preparation for chemotherapy. Patient started on FOLFOX chemotherapy on 06/04/16 based on prelim path and clinical picture suggesting GI primary and severe obstructive symptoms. Further path review, however, and IHC suggests primary. 5FU does have activity in bladder cancer, however as an outpatient the patient will be switched to gemcitabine/[place] based chemotherapy specifically for bladder cancer therapy. - LFTs elevated, abdominal US per GI showed fatty metamorphosis of the liver, sludge in the gallbladder, no evidence of gallstones or cholecystitis. Follow- up GI recs. Bilirubin declining. - Temperature to 100.0 noted overnight, management per primary team. Cultures drawn. - There is no role for surgery at this time Case was discussed with Dr. Byrne, Dr. De and the family who concur with the above plan Problems: Consultation Date/Type/Reason Admit Date/Time May 26, 2016 at 06:29 Initial Consult Date 05/26/16 Type of Consultation: Hematology/Oncology Referring Provider: SHANAE LEWIS MD 24 HR Interval Summary Free Text/Dictation Patient feels well, denies fevers. Exam/Review of Systems Vital Signs Vitals Vital Signs Date Time Temp Pulse Resp B/P Pulse Ox O2 Delivery O2 Flow Rate FiO2 06/08/16 07:00 98.2 82 20 115/77 98 06/06/16 03:45 Room Air Intake and Output 06/07/16 06/07/16 06/08/16 15:00 23:00 07:00 Intake Total 400 ml 450 ml Output Total 700 ml Balance 400 ml -250 ml Exam Constitutional: alert, oriented Psych: no complaints Head: atraumatic, normocephalic Eyes: nl conjunctiva ENMT: nl external ears & nose Neck: non-tender, supple Respiratory: clear to auscultation, other (chest wall port in place) Cardiovascular: regular rate and rhythm Gastrointestinal: soft Results Result Diagram: 06/08/16 0415 06/08/16 0415 Results 24 hrs Laboratory Tests Test 06/08/16 04:15 White Blood Count 5.7 Red Blood Count 4.55 L Hemoglobin 13.7 L Hematocrit 40.2 L Mean Corpuscular Volume 88.4 Mean Corpuscular Hemoglobin 30.1 Mean Corpuscular Hemoglobin Concent 34.1 Red Cell Distribution Width 12.8 Platelet Count 132 L Mean Platelet Volume 11.5 H Neutrophils % 79.5 H Lymphocytes % 18.0 Monocytes % 0.9 Eosinophils % 1.4 Basophils % 0.0 Nucleated Red Blood Cells % 0.0 Neutrophils # 4.5 Lymphocytes # 1.0 Monocytes # 0.1 L Eosinophils # 0.1 Basophils # 0.0 Nucleated Red Blood Cells # 0.0 Sodium Level 128 L Potassium Level 3.9 Chloride Level 99 Carbon Dioxide Level 24 Anion Gap 9 Blood Urea Nitrogen 12 Creatinine 0.65 Glucose Level 124 Calcium Level 7.6 L Magnesium Level 1.8 Total Bilirubin 2.5 H Direct Bilirubin 1.10 #H Indirect Bilirubin 1.4 H Aspartate Amino Transf (AST/SGOT) 66 H Alanine Aminotransferase (ALT/SGPT) 144 H Alkaline Phosphatase 245 H Total Protein 4.9 L Albumin 2.3 L Medications Medications Current Medications Metoclopramide HCl (Reglan) 10 mg Q6H PRN IV NAUSEA AND/OR VOMITING Last administered on 05/28/16 19:55; Admin Dose 10 MG; Start 05/26/16 at 08:00 Acetaminophen (Tylenol Supp) 650 mg Q6H PRN [place] PAIN LEVEL 1-3 OR FEVER; Start 05/26/16 at 08:00 Morphine Sulfate (morphine) 2 mg Q4H PRN IV SEVERE PAIN LEVEL 7-10; Start 05/26 at 08:00 Ondansetron HCl (Zofran Inj) 4 mg Q6H PRN IV NAUSEA AND/OR VOMITING Last administered on 05/29/16 06:55; Admin Dose 4 MG; Start 05/29/16 at 00:00 Famotidine 20 mg 20 mg BID IV Last administered on 06/08/16 09:25; Admin Dose 20 MG; Start 05/29/16 at 09:00 Dextrose/Sodium Chloride (D5-1/2ns) 1,000 ml @ 75 mls/hr [id number] IV Last administered on 06/08/16 09:25; Admin Dose 75 MLS/HR; Start 06/06/16 at 12:30 DARBY KNOWLES MD Jun 08, 2016 10:14
--- NOTE | 2016-06-08 11:25 | PN ---
Date/Time of Note Date/Time of Note DATE: 06/08/16 TIME: 11:21 Assessment/Plan VTE Prophylaxis VTE Prophylaxis Intervention: LMWH Lines/Catheters IV [facility] (from [facility]): PAC Urinary Cath still in place: No Assessment/Plan Assessment/Plan 1. 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 Intractable abdominal pain - likely secondary to duodenal mass (see # 1) : improved 3. GOO 2/2 mass s/p duodenal stent 4. Hyponatremia : ?2/2 IVF hydration with hypotonic fluid 5. Low grade fever 6. Hyperbilirubinemia and transaminitis PLAN: * USS showed only fatty liver and no obstruction, LFTs trending down without intervention , likely 2/2 chemo * Continue Gentle IVF hydration with nomotonic fluid * Meanwhile monitor hematologic labs and electrolytes * Continue PRN pain control/ antiemetics/ antipyretics/ supportive care * Caban culture and monitor fever trend * GI ppx - H2 k[place] * DVT ppx: SCDs add lovenox Subjective 24 Hr Interval Summary Free Text/Dictation spiked low grade fever yesterday Exam/Review of Systems Vital Signs Vitals Vital Signs Date Time Temp Pulse Resp B/P Pulse Ox O2 Delivery O2 Flow Rate FiO2 06/08/16 07:00 98.2 82 20 115/77 98 06/06/16 03:45 Room Air Intake and Output 06/07/16 06/07/16 06/08/16 15:00 23:00 07:00 Intake Total 400 ml 450 ml Output Total 700 ml Balance 400 ml -250 ml Exam GENERAL: Awake, alert, in no distress HEENT: Normal. Oropharynx clear. NECK: Supple, no JVD, no lymphadenopathy. LUNGS: Clear to auscultation. No crackles, no wheezes. HEART: S1, S2, with regular rhythm, no murmur. ABDOMEN: Soft, non tender to palpation in the mid epigastric to mid umbilical area. No rebound, no guarding. Bowel sounds are present. EXTREMITIES: No clubbing, cyanosis, or edema. NEUROLOGICAL: Nonfocal, intact. PSYCHIATRIC: Appropriate affect and mood. Results Result Diagram: 06/08/16 0415 06/08/16 0415 Results 24 hrs Laboratory Tests Test 06/08/16 04:15 White Blood Count 5.7 Red Blood Count 4.55 L Hemoglobin 13.7 L Hematocrit 40.2 L Mean Corpuscular Volume 88.4 Mean Corpuscular Hemoglobin 30.1 Mean Corpuscular Hemoglobin Concent 34.1 Red Cell Distribution Width 12.8 Platelet Count 132 L Mean Platelet Volume 11.5 H Neutrophils % 79.5 H Lymphocytes % 18.0 Monocytes % 0.9 Eosinophils % 1.4 Basophils % 0.0 Nucleated Red Blood Cells % 0.0 Neutrophils # 4.5 Lymphocytes # 1.0 Monocytes # 0.1 L Eosinophils # 0.1 Basophils # 0.0 Nucleated Red Blood Cells # 0.0 Sodium Level 128 L Potassium Level 3.9 Chloride Level 99 Carbon Dioxide Level 24 Anion Gap 9 Blood Urea Nitrogen 12 Creatinine 0.65 Glucose Level 124 Calcium Level 7.6 L Magnesium Level 1.8 Total Bilirubin 2.5 H Direct Bilirubin 1.10 #H Indirect Bilirubin 1.4 H Aspartate Amino Transf (AST/SGOT) 66 H Alanine Aminotransferase (ALT/SGPT) 144 H Alkaline Phosphatase 245 H Total Protein 4.9 L Albumin 2.3 L Medications Medications Current Medications Metoclopramide HCl (Reglan) 10 mg Q6H PRN IV NAUSEA AND/OR VOMITING Last administered on 05/28/16 19:55; Admin Dose 10 MG; Start 05/26/16 at 08:00 Acetaminophen (Tylenol Supp) 650 mg Q6H PRN [place] PAIN LEVEL 1-3 OR FEVER; Start 05/26/16 at 08:00 Morphine Sulfate (morphine) 2 mg Q4H PRN IV SEVERE PAIN LEVEL 7-10; Start 05/26 at 08:00 Ondansetron HCl (Zofran Inj) 4 mg Q6H PRN IV NAUSEA AND/OR VOMITING Last administered on 05/29/16 06:55; Admin Dose 4 MG; Start 05/29/16 at 00:00 Famotidine 20 mg 20 mg BID IV Last administered on 06/08/16 09:25; Admin Dose 20 MG; Start 05/29/16 at 09:00 Sodium Chloride (NS) 1,000 ml @ 75 mls/hr [id number] IV ; Start 06/08/16 at 11:30; Status UNV Procedures Procedures PROCEDURE: US Abdomen (right upper quadrant). CLINICAL INDICATION: Right upper quadrant abdomen pain. TECHNIQUE: Multiple real-time longitudinal and transverse images of the right upper quadrant of the abdomen were acquired utilizing a curved array transducer. Images were reviewed on a high-resolution PACS workstation. COMPARISON: None FINDINGS: The liver is normal in size and diffusely increased in echogenicity consistent with fatty metamorphosis. There is no focal hepatic lesion. Color Doppler and pulsed Doppler sonography demonstrate normal antegrade flow in the portal vein. There is sludge in the gallbladder. The gallbladder is otherwise normal with no stones or wall thickening. There is no pericholecystic fluid collection. The bile ducts are normal with the common bile duct measuring 3.2 mm in diameter. The visualized portions of the pancreas are unremarkable with obscuration of the tail of the pancreas. No free fluid is present. The right kidney measures 10.2 cm. There is normal echogenicity of the right kidney. There is no perinephric fluid collection. No hydronephrosis, mass, or calculus is seen. IMPRESSION: 1. Fatty metamorphosis of the liver. 2. Sludge in the gallbladder. No gallstones or evidence of cholecystitis. 3. Otherwise normal right upper quadrant abdomen ultrasound. RPTAT: QQ .Naldo Oneal MD, MD Date Time Electronically viewed and signed by .Naldo Oneal MD, MD on 06/07/2016 18:09 .R/ CC: TIANNA SALINAS MD, BOLATITO M. Jun 08, 2016 11:25
[2016-06-08] MEDS: ENOXAPARIN 30 MG/0.3 ML SYG SC SCH (12:52)
[2016-06-08] MEDS: SOD CHLORIDE 0.9% 1,000 ML IV SCH (12:52)
--- NOTE | 2016-06-08 19:10 | CONS ---
Date/Time of Note Date/Time of Note DATE: 06/08/16 TIME: 19:09 Assessment/Plan Assessment/Plan Additional Assessment/Plan IMPRESSION 1. Blockage of the second and third part of the duodenum, secondary to tumor. The blockage successfully relieved by deploying the stent, and the patient is able to eat now. 2. Dehydration. 3. The tumor, which was originally reported as an adenocarcinoma, now it is originating from the urethra, as per Dr. Gardiner. 4. Leukocytosis resolved 5. Abnormal liver function tests, rule out chemo induced versus biliary obstruction, improving PLAN 1. Chemotherapy, as per oncologist. 2. IV hydration. 3. Continue mechanical soft diet. 4. Ultrasound of the biliary system negative for obstruction 5. Continue mechanical soft diet discussed with the patient and the family members with the help of mandate retail service merchandiser regarding overall prognosis and further management. Consultation Date/Type/Reason Admit Date/Time May 26, 2016 at 06:29 Initial Consult Date 05/26/16 Type of Consultation: Hematology/Oncology Referring Provider: SHANAE LEWIS MD 24 HR Interval Summary Constitutional: improved, no complaints Exam/Review of Systems Vital Signs Vitals Vital Signs Date Time Temp Pulse Resp B/P Pulse Ox O2 Delivery O2 Flow Rate FiO2 06/08/16 07:00 98.2 82 20 115/77 98 06/06/16 03:45 Room Air Intake and Output 06/07/16 06/07/16 06/08/16 15:00 23:00 07:00 Intake Total 400 ml 450 ml Output Total 700 ml Balance 400 ml -250 ml Exam Constitutional: alert, oriented, well developed Psych: nl mood/affect, no complaints Head: atraumatic, normocephalic Eyes: EOMI, PERRL, nl conjunctiva, nl lids, nl sclera ENMT: nl external ears & nose, nl lips & teeth, nl nasal mucosa & septum Neck: non-tender, supple Respiratory: clear to auscultation, normal air movement Cardiovascular: nl pulses, regular rate and rhythm Gastrointestinal: nl liver, spleen, non-tender, soft Musculoskeletal: nl extremities to inspection, nl gait and stance Extremities: normal pulses Neurological: MAINTENANCE SHOP TECHNICIAN II-XII intact, nl mental status, nl speech, nl strength Skin: nl turgor, No rash or lesions Lymph: nl lymph nodes Results Result Diagram: 06/08/16 0415 06/08/16 0415 Results 24 hrs Laboratory Tests Test 06/08/16 04:15 White Blood Count 5.7 Red Blood Count 4.55 L Hemoglobin 13.7 L Hematocrit 40.2 L Mean Corpuscular Volume 88.4 Mean Corpuscular Hemoglobin 30.1 Mean Corpuscular Hemoglobin Concent 34.1 Red Cell Distribution Width 12.8 Platelet Count 132 L Mean Platelet Volume 11.5 H Neutrophils % 79.5 H Lymphocytes % 18.0 Monocytes % 0.9 Eosinophils % 1.4 Basophils % 0.0 Nucleated Red Blood Cells % 0.0 Neutrophils # 4.5 Lymphocytes # 1.0 Monocytes # 0.1 L Eosinophils # 0.1 Basophils # 0.0 Nucleated Red Blood Cells # 0.0 Sodium Level 128 L Potassium Level 3.9 Chloride Level 99 Carbon Dioxide Level 24 Anion Gap 9 Blood Urea Nitrogen 12 Creatinine 0.65 Glucose Level 124 Calcium Level 7.6 L Magnesium Level 1.8 Total Bilirubin 2.5 H Direct Bilirubin 1.10 #H Indirect Bilirubin 1.4 H Aspartate Amino Transf (AST/SGOT) 66 H Alanine Aminotransferase (ALT/SGPT) 144 H Alkaline Phosphatase 245 H Total Protein 4.9 L Albumin 2.3 L Medications Medications Current Medications Metoclopramide HCl (Reglan) 10 mg Q6H PRN IV NAUSEA AND/OR VOMITING Last administered on 05/28/16 19:55; Admin Dose 10 MG; Start 05/26/16 at 08:00 Acetaminophen (Tylenol Supp) 650 mg Q6H PRN [place] PAIN LEVEL 1-3 OR FEVER; Start 05/26/16 at 08:00 Morphine Sulfate (morphine) 2 mg Q4H PRN IV SEVERE PAIN LEVEL 7-10; Start 05/26 at 08:00 Ondansetron HCl (Zofran Inj) 4 mg Q6H PRN IV NAUSEA AND/OR VOMITING Last administered on 05/29/16 06:55; Admin Dose 4 MG; Start 05/29/16 at 00:00 Famotidine 20 mg 20 mg BID IV Last administered on 06/08/16 09:25; Admin Dose 20 MG; Start 05/29/16 at 09:00 Sodium Chloride (NS) 1,000 ml @ 75 mls/hr [id number] IV Last administered on 12:52; Admin Dose 75 MLS/HR; Start 06/08/16 at 11:30 Enoxaparin Sodium (Lovenox) 30 mg DAILY SC Last administered on 06/08/16t 12:52 ; Admin Dose 30 MG; Start 06/08/16 at 11:30 TIANNA SALINAS MD Jun 08, 2016 19:10
[2016-06-08 20:24] VITALS: BP 122/77; RESP 20
--- NOTE | 2016-06-08 23:53 | PN ---
Date/Time of Note Date/Time of Note DATE: 06/08/16 TIME: 23:53 Assessment/Plan Lines/Catheters IV Catheter Type (from [facility]): PAC [place] in Place (from [facility]): No Assessment/Plan Chief Complaint/Hosp Course 1. Duodenal mass with lymphadenopathy with significant narrowing s/p EGD/ stenting by Dr. De 06/02 2nd metastatic urothelial malignancy. Possible colonic vs intraabdominal lesions. -eventual colonoscopy -diet as tolerated -chemo per onc -further w/u as inpt vs outpt per oncology 2. Steatosis -Eventual nutrition and lifestyle optimization 3. Weight loss probably secondary to above -As above Thank you, Problems: Subjective 24 Hr Interval Summary Low grade temp. Tolerating diet. Path with urologic origin. No chills. No chest pain or shortness of breath. No cough. No seizure. No headache, visual , or neurologic changes. No dysuria. Exam/Review of Systems Vital Signs Vitals Vital Signs Date Time Temp Pulse Resp B/P Pulse Ox O2 Delivery O2 Flow Rate FiO2 06/08/16 20:24 98.0 87 20 122/77 100 06/06/16 03:45 Room Air Intake and Output 06/08/16 06/08/16 06/09/16 15:00 23:00 07:00 Intake Total 1530 ml Output Total 640 ml Balance 890 ml Exam Free Text/Dictation Constitutional: alert, oriented, No distress Psych: nl mood/affect, No anxiety, No confusion Head: atraumatic, normocephalic Eyes: EOMI, PERRL, nl conjunctiva, No icteric ENMT: mucosa pink and moist, nl external ears & nose, nl lips & teeth Neck: non-tender, supple, No jvd, No masses Respiratory: normal air movement, No congested cough, No labored breathing Cardiovascular: regular rate and rhythm, No edema Gastrointestinal: non-tender, soft, No distended, No rebound or guarding Genitourinary - Male: nl scrotum Musculoskeletal: nl extremities to inspection, nl gait and stance, No joint tenderness Extremities: normal pulses, No calf tenderness, No cyanosis Neurological: nl mental status, nl speech, nl strength Skin: nl turgor, No diaphoresis, No rash or lesions Lymph: No nl lymph nodes (Inguinal) Results Result Diagram: 06/08/16 0415 06/08/16 041 DIAMOND FITZGERALD MD Jun 08, 2016 23:53
[2016-06-09] MEDS: SOD CHLORIDE 0.9% 1,000 ML IV SCH ×2 (00:50→02:46)
[2016-06-09 05:42] LABS: ADD SCAN DIFF NO
[2016-06-09 05:47] LABS: BASOPHILS % 0.2 % (0.0-2.0); EOSINOPHILS # 0.1 10^3/ul (0.0-0.5); EOSINOPHILS % 1.9 % (0.0-7.0); HEMATOCRIT 36.4 % (42.0-52.0); HEMOGLOBIN 12.4 g/dl (14.0-18.0); LYMPHOCYTES # 1.2 10^3/ul (0.8-2.9); LYMPHOCYTES % 23.9 % (15.0-51.0); MEAN CORPUSCULAR HEMOGLOBIN 30.5 pg (29.0-33.0); MEAN CORPUSCULAR HGB CONC 34.1 g/dl (32.0-37.0); MEAN CORPUSCULAR VOLUME 89.4 fl (82.0-101.0); MEAN PLATELET VOLUME 11.1 fl (7.4-10.4); MONOCYTES % 0.8 % (0.0-11.0); NEUTROPHIL # 3.5 10^3/ul (1.6-7.5); NEUTROPHILS % 72.8 % (39.0-77.0); PLATELET COUNT 130 10^3/UL (140-415); RED BLOOD COUNT 4.07 10^6/ul (4.70-6.10); RED CELL DISTRIBUTION WIDTH 12.8 % (11.5-14.5); WHITE BLOOD COUNT 4.9 10^3/ul (4.8-10.8)
[2016-06-09 05:56] LABS: INR 1.23; PROTIME 15.6 Sec (12.2-14.2); PT RATIO 1.2
[2016-06-09 05:57] LABS: PARTIAL THROMBOPLASTIN TIME 30.7 Sec (25.0-35.0)
[2016-06-09 06:28] LABS: POTASSIUM 3.5 mmol/L (3.5-5.1)
[2016-06-09 06:31] LABS: CREATININE 0.58 mg/dl (0.61-1.24)
[2016-06-09 06:32] LABS: CALCIUM 7.4 mg/dl (8.4-10.2)
[2016-06-09 07:17] LABS: ALBUMIN 2.2 g/dl (3.3-4.9)
[2016-06-09 07:20] LABS: BILIRUBIN,DIRECT 0.1 mg/dl (0.00-0.20); BILIRUBIN,TOTAL 1.1 mg/dl (0.2-1.3); TOTAL PROTEIN 4.6 g/dl (6.1-8.1)
[2016-06-09 08:08] VITALS: BP 112/14; RESP 18
--- NOTE | 2016-06-09 08:40 | CONS ---
Date/Time of Note Date/Time of Note DATE: 06/09/16 TIME: 08:39 Assessment/Plan Assessment/Plan Additional Assessment/Plan Additional Assessment/Plan IMPRESSION 1. Blockage of the second and third part of the duodenum, secondary to tumor. The blockage successfully relieved by deploying the stent, and the patient is able to eat now. 2. Dehydration. 3. The tumor, which was originally reported as an adenocarcinoma, now it is originating from the urethra, as per Dr. Gardiner. 4. Leukocytosis resolved 5. Abnormal liver function tests, rule out chemo induced , improving PLAN 1. Chemotherapy, as per oncologist. 2. IV hydration. 3. Continue mechanical soft diet. 4. Ultrasound of the biliary system negative for obstruction 5. Continue mechanical soft diet discussed with the patient and the family members with the help of liner assembler regarding overall prognosis and further management. Consultation Date/Type/Reason Admit Date/Time May 26, 2016 at 06:29 Initial Consult Date 05/26/16 Type of Consultation: Hematology/Oncology Referring Provider: SHANAE LEWIS MD 24 HR Interval Summary Constitutional: improved, no complaints Exam/Review of Systems Vital Signs Vitals Vital Signs Date Time Temp Pulse Resp B/P Pulse Ox O2 Delivery O2 Flow Rate FiO2 06/09/16 08:08 97.8 73 18 112/14 96 06/06/16 03:45 Room Air Intake and Output 06/08/16 06/08/16 06/09/16 15:00 23:00 07:00 Intake Total 1530 ml 1010 ml Output Total 640 ml 1320 ml Balance 890 ml -310 ml Exam Constitutional: alert, oriented, well developed Psych: nl mood/affect, no complaints Head: atraumatic, normocephalic Eyes: EOMI, PERRL, nl conjunctiva, nl lids, nl sclera ENMT: nl external ears & nose, nl lips & teeth, nl nasal mucosa & septum Neck: non-tender, supple Respiratory: clear to auscultation, normal air movement Cardiovascular: nl pulses, regular rate and rhythm Gastrointestinal: nl liver, spleen, non-tender, soft Musculoskeletal: nl extremities to inspection, nl gait and stance Extremities: normal pulses Neurological: RAILROAD DETECTIVE II-XII intact, nl mental status, nl speech, nl strength Skin: nl turgor, No rash or lesions Lymph: nl lymph nodes Results Result Diagram: 06/09/16 0453 06/09/16 0453 Results 24 hrs Laboratory Tests Test 06/09/16 04:53 06/09/16 05:20 White Blood Count 4.9 Red Blood Count 4.07 L Hemoglobin 12.4 L Hematocrit 36.4 L Mean Corpuscular Volume 89.4 Mean Corpuscular Hemoglobin 30.5 Mean Corpuscular Hemoglobin Concent 34.1 Red Cell Distribution Width 12.8 Platelet Count 130 L Mean Platelet Volume 11.1 H Neutrophils % 72.8 Lymphocytes % 23.9 Monocytes % 0.8 Eosinophils % 1.9 Basophils % 0.2 Nucleated Red Blood Cells % 0.0 Neutrophils # 3.5 Lymphocytes # 1.2 Monocytes # 0.0 L Eosinophils # 0.1 Basophils # 0.0 Nucleated Red Blood Cells # 0.0 Sodium Level 132 L Potassium Level 3.5 Chloride Level 99 Carbon Dioxide Level 24 Anion Gap 13 Blood Urea Nitrogen 12 Creatinine 0.58 L Glucose Level 127 Calcium Level 7.4 L Total Bilirubin 1.1 Direct Bilirubin 0.10 # Indirect Bilirubin 1.0 Aspartate Amino Transf (AST/SGOT) 39 Alanine Aminotransferase (ALT/SGPT) 101 H Alkaline Phosphatase 199 H Total Protein 4.6 L Albumin 2.2 L Prothrombin Time 15.6 H Prothrombin Time Ratio 1.2 INR International Normalized Ratio 1.23 Activated Partial Thromboplast Time 30.7 Medications Medications Current Medications Metoclopramide HCl (Reglan) 10 mg Q6H PRN IV NAUSEA AND/OR VOMITING Last administered on 05/28/16 19:55; Admin Dose 10 MG; Start 05/26/16 at 08:00 Acetaminophen (Tylenol Supp) 650 mg Q6H PRN [place] PAIN LEVEL 1-3 OR FEVER; Start 05/26/16 at 08:00 Morphine Sulfate (morphine) 2 mg Q4H PRN IV SEVERE PAIN LEVEL 7-10; Start 05/26 at 08:00 Ondansetron HCl (Zofran Inj) 4 mg Q6H PRN IV NAUSEA AND/OR VOMITING Last administered on 05/29/16 06:55; Admin Dose 4 MG; Start 05/29/16 at 00:00 Famotidine 20 mg 20 mg BID IV Last administered on 06/08/16 20:54; Admin Dose 20 MG; Start 05/29/16 at 09:00 Sodium Chloride (NS) 1,000 ml @ 75 mls/hr [id number] IV Last administered on 02:46; Admin Dose 75 MLS/HR; Start 06/08/16 at 11:30 Enoxaparin Sodium (Lovenox) 30 mg DAILY SC Last administered on 06/08/16 12:52 ; Admin Dose 30 MG; Start 06/08/16 at 11:30 TIANNA SALINAS MD Jun 09, 2016 08:39
[2016-06-09] MEDS: FAMOTIDINE 20 MG INJ IV SCH (09:46)
[2016-06-09] MEDS: ENOXAPARIN 30 MG/0.3 ML SYG SC SCH (09:52)
--- NOTE | 2016-06-09 11:55 | CONS ---
Date/Time of Note Date/Time of Note DATE: 06/09/16 TIME: 11:24 Assessment/Plan Assessment/Plan Chief Complaint/Hosp Course 60 year old male who presented to the emergency room at [facility] with epigastric pain x 1 week associated with nausea and nonbloody, nonbilious emesis and found to have gastric outlet obstruction due to malignancy (? primary duodenal metastatic to colon vs. reverse) s/p duodenal stent 06/02/16. - CT A/P at [facility] demonstrated distended stomach secondary to a duodenal mass causing obstruction at the third portion of the duodenum. Pt is also noted to have periduodenal lymphadenopathy with largest confluent mass 2.6 x 3.9 cm and multiple additional smaller nodes. Also seen is a 2.3 x 2.9 cm mass lying above the bladder may represent a drop metastasis. - Repeat CT CAP 05/27/16 showed 1. There is a infiltrative submucosal mass roughly 3.2 cm in length by 3.2 cm transverse involving the proximal third portion of the duodenum resulting in a partial obstruction of the stomach and proximal duodenum. Lymphoma or other duodenal cancer might present this fashion. There is thickening of the mucosa in the cardia of the stomach of unknown significance. Endoscopy may be helpful in evaluation. 2. There is an infiltrative mass involving the cecum and ascending colon extending beyond the serosa into the adjacent mesentery with abnormal mesenteric lymph nodes medial to the ascending colon. These measure up to 1.2 cm. Additional abnormal retroperitoneal lymph nodes are noted as described above. 3. There is matting of small bowel loops medial to the ascending colon which are suspicious for carcinomatosis. Prelim path Small bowel biopsy: -- Adenocarcinoma, poorly-differentiated, involving small intestinal submucosa and focally the mucosal surface. -- There are scattered intralymphatic tumor emboli within adjacent small intestinal villi. COMMENT: Findings are discussed Dr. Sean De on 05/30/2016 at 9:00 a.m. This tumor may represent a duodenal primary; however, because of the extensive lymphatic invasion, the possibility of metastatic carcinoma or direct extension into the duodenum from an extraduodenal site should also be considered. Immunoperoxidase stains are pending to further characterize the tumor and a final report will be issued following review of the immunohistochemical stains. Final path Small bowel biopsy: -- Metastatic poorly-differentiated, most consistent with urothelial origin. - Duodenal stent placed 06/02/16. Per Dr. De, almost complete obstruction second and third part of the duodenum. Successful 9 cm stent deployed, and the symptoms got completely resolved. - Port a cath was placed 06/01/16 in preparation for chemotherapy. Patient started on FOLFOX chemotherapy on 06/04/16 based on prelim path and clinical picture suggesting GI primary and severe obstructive symptoms. Further path review, however, and IHC suggests primary. 5FU does have activity in bladder cancer, however as an outpatient the patient will be switched to gemcitabine/menominee based chemotherapy specifically for bladder cancer therapy. - LFTs elevated, abdominal US per GI showed fatty metamorphosis of the liver, sludge in the gallbladder, no evidence of gallstones or cholecystitis. Follow- up GI recs. LFTs resolving/improving. - Temperature to 100.0 noted previously management per primary team. Follow up cultures. No fever since yesterday. - There is no role for surgery at this time - If ok with primary team and consultants, ok to discharge home from oncology perspective and follow-up with me in clinic. manager estate to obtain auth for visit. Case was discussed with Dr. Byrne, Dr. De and the family who concur with the above plan Problems: Consultation Date/Type/Reason Admit Date/Time May 26, 2016 at 06:29 Initial Consult Date 05/26/16 Type of Consultation: Hematology/Oncology Referring Provider: SHANAE LEWIS MD 24 HR Interval Summary Free Text/Dictation The patient feels well, denies fevers, no complaints. Exam/Review of Systems Vital Signs Vitals Vital Signs Date Time Temp Pulse Resp B/P Pulse Ox O2 Delivery O2 Flow Rate FiO2 06/09/16 08:08 97.8 73 18 112/14 96 06/06/16 03:45 Room Air Intake and Output 06/08/16 06/08/16 06/09/16 15:00 23:00 07:00 Intake Total 1530 ml 1010 ml Output Total 640 ml 1320 ml Balance 890 ml -310 ml Exam Constitutional: alert, oriented Psych: no complaints Head: atraumatic, normocephalic Eyes: nl conjunctiva ENMT: nl external ears & nose Neck: non-tender, supple Respiratory: clear to auscultation, other (chest wall port in place) Cardiovascular: regular rate and rhythm Gastrointestinal: soft Results Result Diagram: 06/09/16 0453 06/09/16 0453 Results 24 hrs Laboratory Tests Test 06/09/16 04:53 06/09/16 05:20 White Blood Count 4.9 Red Blood Count 4.07 L Hemoglobin 12.4 L Hematocrit 36.4 L Mean Corpuscular Volume 89.4 Mean Corpuscular Hemoglobin 30.5 Mean Corpuscular Hemoglobin Concent 34.1 Red Cell Distribution Width 12.8 Platelet Count 130 L Mean Platelet Volume 11.1 H Neutrophils % 72.8 Lymphocytes % 23.9 Monocytes % 0.8 Eosinophils % 1.9 Basophils % 0.2 Nucleated Red Blood Cells % 0.0 Neutrophils # 3.5 Lymphocytes # 1.2 Monocytes # 0.0 L Eosinophils # 0.1 Basophils # 0.0 Nucleated Red Blood Cells # 0.0 Sodium Level 132 L Potassium Level 3.5 Chloride Level 99 Carbon Dioxide Level 24 Anion Gap 13 Blood Urea Nitrogen 12 Creatinine 0.58 L Glucose Level 127 Calcium Level 7.4 L Total Bilirubin 1.1 Direct Bilirubin 0.10 # Indirect Bilirubin 1.0 Aspartate Amino Transf (AST/SGOT) 39 Alanine Aminotransferase (ALT/SGPT) 101 H Alkaline Phosphatase 199 H Total Protein 4.6 L Albumin 2.2 L Prothrombin Time 15.6 H Prothrombin Time Ratio 1.2 INR International Normalized Ratio 1.23 Activated Partial Thromboplast Time 30.7 Medications Medications Current Medications Metoclopramide HCl (Reglan) 10 mg Q6H PRN IV NAUSEA AND/OR VOMITING Last administered on 05/28/16 19:55; Admin Dose 10 MG; Start 05/26/16 at 08:00 Acetaminophen (Tylenol Supp) 650 mg Q6H PRN IA PAIN LEVEL 1-3 OR FEVER; Start 05/26/16 at 08:00 Morphine Sulfate (morphine) 2 mg Q4H PRN IV SEVERE PAIN LEVEL 7-10; Start 05/26 at 08:00 Ondansetron HCl (Zofran Inj) 4 mg Q6H PRN IV NAUSEA AND/OR VOMITING Last administered on 05/29/16 06:55; Admin Dose 4 MG; Start 05/29/16 at 00:00 Famotidine 20 mg 20 mg BID IV Last administered on 06/09/16 09:46; Admin Dose 20 MG; Start 05/29/16 at 09:00 Sodium Chloride (NS) 1,000 ml @ 75 mls/hr [id number] IV Last administered on 02:46; Admin Dose 75 MLS/HR; Start 06/08/16 at 11:30 Enoxaparin Sodium (Lovenox) 30 mg DAILY SC Last administered on 06/09/16 09:52 ; Admin Dose 30 MG; Start 06/08/16 at 11:30 DARBY KNOWLES MD Jun 09, 2016 11:55
[2016-06-09] MEDS ORDERED: HEPARIN (100 UNITS/ML) 5 ML SYG CATHETER ONE (12:30)
--- NOTE | 2016-06-09 14:57 | DS ---
DATE OF ADMISSION: 05/26/2016 DATE OF DISCHARGE: 06/09/2016 FINAL DIAGNOSES: 1. 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 The exact origin unknown, started on in house chemotherapy, status post 1 session. 2. Intractable abdominal pain secondary to metastatic duodenal mass, status post placement of duodenal stent to relieve gastric outlet obstruction caused by mass. 3. Hyponatremia secondary to dilution with hypotonic fluid that is significantly improved. 4. Hyperbilirubinemia and transaminitis for which biliary obstruction has been ruled out and is significantly improving, likely secondary to chemotherapy. CONSULTANTS ON THE CASE: Dr. Traylor / Rogelio for hematology/oncology and Sean De for gastroenterology, Dr. Ryley Boudreaux for surgery. SHORT HOSPITALIZATION COURSE: Full details are available in the chart for review. In summary, this patient had presented with severe abdominal pain and a CAT scan that showed a large duodenal mass. He underwent EGD where he was found to have severe gastric outlet obstruction and eventually had a duodenal stent placed to relieve obstruction. This significantly helped the patient. At the same time biopsies were obtained and eventually pathology came back showing metastatic mass of uro epithelial origin. The patient was started on chemotherapy in house and has completed his first course of chemo and has been cleared for discharge by oncology for continued outpatient chemo. Bilirubin was found to be elevated and there was concern that he might have a biliary obstruction as well. He did, however, have an ultrasound that did not show any obstruction and serial lab monitoring revealed that his bilirubin and liver enzyme levels improved significantly. Based on this finding, he was cleared for continued outpatient followup and at this time is to be discharged home. He did have a post-chemo hypernatremia as well, but that was thought to be secondary to the fact that he received large amounts of D5 water and this improved with gentle normal saline hydration. Today, he is doing very well. He did have an episode of fever, but was a single time episode and cultures so far have been negative. WBC count did not go up. Family thought it was due to too many blankets. Patient remains in stable condition. He is desirous of discharge, and in my opinion he is stable for discharge. DISPOSITION: To home. ACTIVITIES: As tolerated. FOLLOWUP: He is to follow up with Dr. Mercado in the office for continued chemotherapy. He is also recommended to follow up with his primary care physician within 1 to 2 weeks. Notify him of events in the hospital and is also recommended to follow up with Gastroenterology, per their recommendations. I discussed that patient will likely need lower endoscopy as well at some point, however, oncology has determined that patient does not need surgery at this time. Final discharge medications, please review the patient's chart. DIET: Recommended diet is low cholesterol, low fat, high fiber diet. Dictated By: ELLIOTT ALEMAN MD BA/ANN MARIE Conf#: [id number] DID#: [id number] MTDD
== END 2016-06-09 16:30 | disposition home or self-care (01) | DRG 381 ==
LOC: MS2 06:29 → MS1 06-04 11:05
PROVIDERS: ADMIT Family Medicine; ATTEND Family Medicine
PROC: 02HV33Z Insertion of Infusion Device into Superior Vena Cava, Percutaneous Approach (ICD-10-PCS; 2016-06-01)
PROC: 0D798DZ Dilation of Duodenum with Intraluminal Device, Via Natural or Artificial Opening Endoscopic (ICD-10-PCS; principal; 2016-06-02 12:00)
PROC: 3E04305 Introduction of Other Antineoplastic into Central Vein, Percutaneous Approach (ICD-10-PCS; 2016-06-04)
DX: K31.5 Obstruction of duodenum (principal); C78.4 Secondary malignant neoplasm of small intestine; E87.0 Hyperosmolality and hypernatremia; C68.9 Malignant neoplasm of urinary organ, unspecified; C78.6 Secondary malignant neoplasm of retroperitoneum and peritoneum; E87.1 Hypo-osmolality and hyponatremia; K76.0 Fatty (change of) liver, not elsewhere classified; E86.0 Dehydration; D72.829 Elevated white blood cell count, unspecified; R59.1 Generalized enlarged lymph nodes; K40.20 Bilateral inguinal hernia, without obstruction or gangrene, not specified as recurrent; N40.0 Benign prostatic hyperplasia without lower urinary tract symptoms; R63.4 Abnormal weight loss; Z68.25 Body mass index [BMI] 25.0-25.9, adult; R19.00 Intra-abdominal and pelvic swelling, mass and lump, unspecified site
CPT/HCPCS: 36561; 71010; 71260; 74000; 74177; 74240; 76705; 76942; 80048; 80076; 82378; 83615; 83735; 84100; 85025; 85610; 85730; 87040; 87086; 88305; 88341; 88342; 90686; J9190; C2617; J0330; J0690; J1100; J1200; J1642; J1644; J1650; J2250; J2405; J2765; J3010; J3480; J7030; J7042; J7060; J7070; Q9967

== ENCOUNTER 2016-06-30 11:44 | Inpatient (IN) | payer OTHER ==
[~2016-06-30] VITALS: Ht 170.2 cm; Wt 70.0 kg
[~2016-06-30 11:44] MED LIST: DOCU-144 PO; HYDR-906 PO; OMEP20CA16 PO; ONDA-43 ODT
[2016-06-30] MEDS ORDERED: SODIUM CHLORIDE 0.9% 1L BAG IV* STA (12:26)
[2016-06-30] MEDS ORDERED: morphine 4 MG/ML VIAL IV STA (12:26)
--- NOTE | 2016-06-30 12:47 | RADRPT ---
PROCEDURE: XR Chest. CLINICAL INDICATION: chest pain TECHNIQUE: Single frontal view of the chest was obtained COMPARISON: 05/29/16 FINDINGS: The heart and mediastinum are within normal limits. There are mild bibasilar atelectatic changes, left greater than right. There is a right chest wall port in place. There is no pleural effusion or pneumothorax. RPTAT: AA IMPRESSION: Mild bibasilar atelectatic changes, left greater than right. .Anthony Ferguson MD, Date Time Electronically viewed and signed by .Anthony Ferguson MD, on 06/30/2016 12:46 .S/
[2016-06-30 13:18] LABS: ADD SCAN DIFF NO
[2016-06-30 13:23] LABS: ABNORMAL IP MESSAGE 1; BASOPHILS % 0.1 % (0.0-2.0); HEMATOCRIT 40.2 % (42.0-52.0); HEMOGLOBIN 13.5 g/dl (14.0-18.0); LYMPHOCYTES # 0.5 10^3/ul (0.8-2.9); LYMPHOCYTES % 2.8 % (15.0-51.0); MEAN CORPUSCULAR HEMOGLOBIN 30.1 pg (29.0-33.0); MEAN CORPUSCULAR HGB CONC 33.6 g/dl (32.0-37.0); MEAN CORPUSCULAR VOLUME 89.7 fl (82.0-101.0); MEAN PLATELET VOLUME 9.7 fl (7.4-10.4); MONOCYTE # 0.3 10^3/ul (0.3-0.9); MONOCYTES % 1.7 % (0.0-11.0); NEUTROPHILS % 94.2 % (39.0-77.0); PLATELET COUNT 268 10^3/UL (140-415); RED BLOOD COUNT 4.48 10^6/ul (4.70-6.10); RED CELL DISTRIBUTION WIDTH 14.5 % (11.5-14.5); WHITE BLOOD COUNT 19.1 10^3/ul (4.8-10.8)
[2016-06-30 13:34] LABS: INR 1.06; PROTIME 13.8 Sec (12.2-14.2); PT RATIO 1.1
[2016-06-30 13:35] LABS: PARTIAL THROMBOPLASTIN TIME 32.2 Sec (25.0-35.0)
[2016-06-30 13:36] LABS: ALBUMIN 3.2 g/dl (3.3-4.9); CHLORIDE 91 mmol/L (97-110)
[2016-06-30 13:37] LABS: POTASSIUM 3.9 mmol/L (3.5-5.1); SODIUM 132 mmol/L (135-144)
[2016-06-30 13:39] LABS: ALANINE AMINOTRANSFERASE 122 IU/L (13-69); ALBUMIN/GLOBULIN RATIO 0.84; ALKALINE PHOSPHATASE 631 IU/L (42-121); ANION GAP 21 (8-16); ASPARTATE AMINO TRANSFERASE 109 IU/L (15-46); BILIRUBIN,INDIRECT 1.2 mg/dl (0-1.1); BLOOD UREA NITROGEN 11 mg/dl (7-20); CALCIUM 8.9 mg/dl (8.4-10.2); CARBON DIOXIDE 24 mmol/L (21-31); CREATININE 0.76 mg/dl (0.61-1.24); GLUCOSE 134 mg/dl (70-220)
[2016-06-30 13:55] LABS: TROPONIN-I < 0.012 ng/ml (0.00-0.12)
[2016-06-30] MEDS ORDERED: CEFTRIAXONE 1 GM/50 ML (PMX) 50 ML IVPB ONE (14:00)
--- NOTE | 2016-06-30 14:38 | RADRPT ---
PROCEDURE: CT scan of the abdomen and pelvis without IV contrast. CLINICAL INDICATION: Lower abdominal pain. TECHNIQUE: Thin section axial, coronal and sagittal images were performed through the abdomen and pelvis without contrast. Radiation Dose: CTDI: 13.2 and DLP: 801.1 One or more of the following dose reduction techniques were used: - Automated exposure control. - Adjustment of the mA and/or kV according to patient size. Use of iterative reconstruction technique. COMPARISON: Chest x-ray 04/08/2016 06:18 a.m. FINDINGS: Soft tissues: There is soft tissue stranding in the subcutaneous fat over the dorsal lateral right f lank.. Lungs and pleural spaces: The lungs are hyperinflated with plate-like densities consistent with pare nchymal scarring or atelectasis in the medial aspects of the right left lower lobes. There are rodriguez pheral ground-glass infiltrates consistent with atelectasis in the left lower lobe. No pleural effu kentrell is identified. There is a calcified lymph node inferior to the valdo. Heart: Heart is normal in size. No pericardial effusion is present. The liver, common bile duct and gallbladder: Liver is enlarged measuring 18.2 cm AP. No hepatic mas s or intrahepatic biliary ductal dilatation is identified. The gallbladder and gallbladder wall are normal. Gastrointestinal: The stomach is unremarkable. There is a para-esophageal hernia with fat extending through the diaphragm to the right of the distal esophagus. No hiatal hernia is present. The stom ach is normal. There are bilateral inguinal hernias. The right inguinal area contains fat. The lef t inguinal hernia contains fluid. There is diffuse thickening of the mucosa of the ascending colon a nd hepatic flexure. There is stranding and disruption of the fascial planes between the hepatic fle xure and to the which may represent tumor. Pancreas: The pancreas is unremarkable. The extrahepatic common bile duct is dilated measuring 1.5 cm. Kidneys, bladder and adrenal glands : The adrenal glands are normal. There is no evidence of a daniel d mass or hydronephrosis involving either kidney. Urinary bladder is normal. Spleen: Normal. Lymph nodes: There are multiple periaortic lymph nodes some of which are enlarged measuring up to 1. 5 cm. A 1.2 cm lymph node is identified in the retroperitoneum to the left of the common iliac leti ry. Reproductive system and pelvis : There is some fluid in the pelvis. The prostate and seminal vesicl es are normal. Bony elements: There are degenerative changes of the SI joints, thoracic and lumbar spine. Vasculature: Atherosclerotic calcifications are present in the mid and lower abdominal aortic, right and left common iliac arteries and internal iliac arteries. IMPRESSION: 1. Pulmonary hyperinflation with plate-like areas of atelectasis in the right and left lower lobes. Peripheral ground-glass infiltrates in the left lower lobe possibly secondary to atelectasis. 2. Hepatomegaly. Fatty infiltration of the liver. 1 mm calcified granuloma in the left lobe of the liver. 3. Dilated extrahepatic common bile duct measuring 1.5 cm. 4. Duodenal stent with thickening of the duodenal mucosa. 5. Enlarged periaortic retroperitoneal lymph nodes. 6. Atherosclerotic vascular disease 7. Free fluid in the pelvis. There are 8 bilateral inguinal hernias containing fat. The left ingu inal hernia also contains fluid. 8. Osteoarthritis of the thoracic and lumbosacral spine. 9. Calcified subcarinal lymph node in the chest. 10. Infiltrative neoplasm involving the cecum, ascending colon and hepatic flexure with extension o f tumor to the serosa involving the lateral wall of the duodenum. This has advanced as compared to 05/27/2016. Findings suspicious for carcinomatosis. 11. Prominent/enlarged prostate gland measuring 4.9 cm transverse by 3.2 cm AP. 12. Ascitic fluid is noted in the right pericolic gutter and lower ventral pelvis. RPTAT:AAJJ Physician Sudhir Date Time Electronically viewed and signed by Physician Sudhir on 06/30/2016 14:37 VAMSI/
--- NOTE | 2016-06-30 14:51 | ERA ---
ER Documentation Chief Complaint Date/Time DATE: 06/30/16 TIME: 14:43 Chief Complaint CAEM IN VIA INTAKE DUE TO ABDOMINAL PAIN HPI This is a 60-year-old male presents to the emergency room for evaluation of abdominal pain. Patient states that he has had abdominal pain for approximately 2 days duration. He localizes it to the lower portion of his abdomen and describes as an achy pain. The patient denies any nausea or vomiting associated with this, and states that he does not have any diarrhea associated with this. This patient does have a history of gastric carcinoma with possible metastasis to the bladder. This patient underwent chemotherapy last week and presents today for evaluation of his symptoms. He denies any aggravating or relieving factors for his symptoms. ROS All systems reviewed and are negative except as per history of present illness. Medications Home Meds Reported Medications Omeprazole* (Omeprazole*) 20 Mg Capsule.dr, 20 MG PO BID, #60 CAP 05/26/16 Discontinued Scripts Hydrocodone/Acetaminophen ([place] 5-325 Tablet) 1 Each Tablet, 1 EACH PO Q6H Y for PAIN LEVEL 6-10, #21 TAB Prov:ELLIOTT ALEMAN M. 06/07/16 Docusate Sodium* (Colace*) 100 Mg Capsule, 100 MG PO BID, #60 CAP 2 Refills Prov:LOVENOLANO M. 06/07/16 Ondansetron Hcl* (Zofran*) 4 Mg Tab, 4 MG ODT Q6H Y for NAUSEA AND OR VOMITING, #21 TAB Prov:LOVEADILENEERNIEO M. 06/07/16 Allergies Allergies: Coded Allergies: No Known Allergies (Verified Allergy, Unknown, 05/26/16) PMhx/Soc History of Surgery: Yes (appendectomy-2009) Anesthesia Reaction: No Hx Neurological Disorder: No Hx Respiratory Disorders: No Hx Cardiac Disorders: No Hx Psychiatric Problems: No Hx Miscellaneous Medical Probl: No Hx Alcohol Use: No Hx Substance Use: Yes Hx Tobacco Use: No Smoking Status: Never smoker Physical Exam Vitals Vital Signs Date Time Temp Pulse Resp B/P Pulse Ox O2 Delivery O2 Flow Rate FiO2 06/30/16 13:25 Nasal Cannula 2 06/30/16 11:51 98.5 137 18 104/62 97 Physical Exam INITIAL VITAL SIGNS: Reviewed by me GENERAL: The patient is frail-appearing elderly gentleman, no acute distress HEENT: Pupils equal, round, and reactive to light. EOMI. There is no scleral icterus. NECK: C-spine is soft and supple, there is no meningismus. There is no cervical lymphadenopathy. LUNGS: Clear to auscultation bilaterally. There are no rales, wheezes or rhonchi. HEART: Regular rate and rhythm, no murmurs, clicks, rubs or gallops. ABDOMEN: Epigastric tenderness to palpation, mild abdominal distention, bowel sounds in all 4 quadrants EXTREMITIES: There is no peripheral cyanosis or edema. No focal swelling or erythema. NEUROLOGICAL: The patient moves all four extremities with 5/5 strength. Cranial nerves II - XII are intact. Normal gait. Alert and oriented SKIN: There is no apparent rash or petechiae. HEME/LYMPHATIC: There is no evidence of excessive bruising or lymphedema. PSYCHIATRIC: The patient does not appear anxious or depressed. Result Diagram: 06/30/16 1240 06/30/16 1240 Results 24 hrs Laboratory Tests Test 06/30/16 12:40 White Blood Count 19.110^3/ul Red Blood Count 4.4810^6/ul Hemoglobin 13.5g/dl Hematocrit 40.2% Mean Corpuscular Volume 89.7fl Mean Corpuscular Hemoglobin 30.1pg Mean Corpuscular Hemoglobin Concent 33.6g/dl Red Cell Distribution Width 14.5% Platelet Count 49782^3/UL Mean Platelet Volume 9.7fl Neutrophils % 94.2% Lymphocytes % 2.8% Monocytes % 1.7% Eosinophils % 0.0% Basophils % 0.1% Nucleated Red Blood Cells % 0.0/100WBC Neutrophils # 18.010^3/ul Lymphocytes # 0.510^3/ul Monocytes # 0.310^3/ul Eosinophils # 0.010^3/ul Basophils # 0.010^3/ul Nucleated Red Blood Cells # 0.010^3/ul Prothrombin Time 13.8Sec Prothrombin Time Ratio 1.1 INR International Normalized Ratio 1.06 Activated Partial Thromboplast Time 32.2Sec Sodium Level 132mmol/L Potassium Level 3.9mmol/L Chloride Level 91mmol/L Carbon Dioxide Level 24mmol/L Anion Gap 21 Blood Urea Nitrogen 11mg/dl Creatinine 0.76mg/dl Glucose Level 134mg/dl Lactic Acid Level 4.0mmol/L Calcium Level 8.9mg/dl Total Bilirubin 4.0mg/dl Direct Bilirubin 2.80mg/dl Indirect Bilirubin 1.2mg/dl Aspartate Amino Transf (AST/SGOT) 109IU/L Alanine Aminotransferase (ALT/SGPT) 122IU/L Alkaline Phosphatase 631IU/L Troponin I < 0.012ng/ml Total Protein 7.0g/dl Albumin 3.2g/dl Globulin 3.80g/dl Albumin/Globulin Ratio 0.84 Current Medications Medications (Trade) Dose Ordered Sig/Jerrod Route PRN Reason Start Time Stop Time Status Last Admin Dose Admin Sodium Chloride (NS) 2,170 ml BOLUS OVER 2 HOURS STAT IV* 06/30/16 12:26 06/30/16 12:27 DC 06/30/16 13:18 Morphine Sulfate 4 mg 4 mg ONCE STAT IV 06/30/16 12:26 06/30/16 12:27 DC 06/30/16 13:18 Ceftriaxone Sodium (Rocephin) 50 ml @ 100 mls/hr ONCE ONCE IVPB 06/30/16 14:00 06/30/16 14:29 DC 06/30/16 14:23 Procedures/MDM EKG: Rate/Rhythm: [Normal Sinus Rhythm] QRS, ST, T-waves: [No changes consistent w/ acute ischemia] Impression: [No evidence of ischemia or arrhythmia] Chest X-ray 1V Interpreted by me: Soft Tissue: No acute abnormalities Bones: No acute abnormalities Mediastinum/Cardiac Silhouette/Lungs: Bibasilar atelectatic changes CT abdomen pelvis with out IV contrast: 1. Pulmonary hyperinflation with plate-like areas of atelectasis in the right and left lower lobes. Peripheral ground-glass infiltrates in the left lower lobe possibly secondary to atelectasis. 2. Hepatomegaly. Fatty infiltration of the liver. 1 mm calcified granuloma in the left lobe of the liver. 3. Dilated extrahepatic common bile duct measuring 1.5 cm. 4. Duodenal stent with thickening of the duodenal mucosa. 5. Enlarged periaortic retroperitoneal lymph nodes. 6. Atherosclerotic vascular disease 7. Free fluid in the pelvis. There are 8 bilateral inguinal hernias containing fat. The left inguinal hernia also contains fluid. 8. Osteoarthritis of the thoracic and lumbosacral spine. 9. Calcified subcarinal lymph node in the chest. 10. Infiltrative neoplasm involving the cecum, ascending colon and hepatic flexure with extension of tumor to the serosa involving the lateral wall of the duodenum. This has advanced as compared to 05/27/2016. Findings suspicious for carcinomatosis. 11. Prominent/enlarged prostate gland measuring 4.9 cm transverse by 3.2 cm AP. 12. Ascitic fluid is noted in the right pericolic gutter and lower ventral pelvis. Patient's infectious symptoms have not stabilized and the patient is at risk of rapid decompensation. The patient will be admitted for careful hydration, antibiotic therapy, and infectious source control. Severe Sepsis Assessment: Infectious Source: Intra-abdominal, ascites End organ damage indicated by: [Lactate > 2.0 mmol/L Hypotension( SBP < 90 or >40 mmHG drop or MAP < 65) Acute Resp Failure (sat < 92% w/o oxygen) Tool Crib Attendant > 2.0 INR > 1.5 Plt < 100 Bili > 2] Severe Sepsis Managment: Blood Cultures X 2 before broad spectrum antibiotics initiated within 3 hours of recognition. 30 ml/kg NS bolus Completed Initial Lactate: 4 Repeat Lactate pending Critical Care: Excluding all billable procedures Time: 44 minutes Treatments/Evaluations: Emergent fluid management, while maintaining close respiratory support. Immediate broad spectrum antibiotic therapy. Simultaneous assessment for possible sources in order to direct therapy. Consideration for invasive and chemical support to prevent respiratory or cardiac collapse. Septic Shock Assessment (1 hour post 30 ml/kg fluid bolus): Hypotension (SBP < 90 or 40 mmHg drop, MAP < 65): [No] Lactic acid > 4.0 [No] Perfusion Reassessment for Septic Shock: Time of reassessment 2:40 PM, time of diagnosis sepsis 12:40 PM Temp 98, Pulse 101], RR 18 BP113/64 Heart Exam: [Tachycardic] Lung Exam: [No Crackles] Capillary Refill: [Delayed] Peripheral Pulses: [Radially present] Skin: [Mottled, pale] Hypotensive Treatment (not required for isolated lactic acid elevation): Comfort Care: No Central LIne: None Vasopressor started: None I considered further perfusion assessment with CVP measurement, SCVO2, bedside ultrasound volume assessment, passive leg raise, trial of further fluid bolus. And preceded with further fluid bolus Accepting Care Team: Current data and ongoing care discussed. Time: Time of admission Primary Provider: Jimi Outstanding Data: none This 60-year-old male presents to the emergency room for evaluation of abdominal pain. This patient does have a history of gastric carcinoma, bladder cancer, and metastatic colon cancer. When I evaluated this patient he was tachycardic. The patient did state that he recently finished chemotherapy. Given his tachycardia in the chemotherapy sepsis workup was started. This patient was found to have a leukocytosis, lactic acid greater than 4. X-ray reveals bibasilar atelectasis, and CT of the abdomen pelvis was obtained. CT of the abdomen pelvis does reveal carcinomatosis with advancement of his disease. This patient is hemodynamically stable at this time. He did receive 30 cc/kg of IV normal saline, and has a mean arterial pressure greater than 65 with no need for vasopressors at this time. Patient was started on broad- spectrum antibiotics, Rocephin, Zosyn, and Flagyl. Ultrasound is pending at this time as this patient does have elevations in his liver function tests. He does have mildly dilated common bile duct on his CAT scan. Departure Diagnosis: Primary Impression: Severe sepsis Additional Impressions: Malignant ascites Carcinomatosis Transaminitis Condition: Serious YURI JENSEN DO Jun 30, 2016 14:51
[2016-06-30] MEDS ORDERED: metroNIDAZOLE 500 MG/NS (PMX) 100 ML IVPB STA (14:55)
[2016-06-30] MEDS ORDERED: PIPER-TAZO 3.375 GM IV (PMX) 100 ML IVPB STA (14:55)
--- NOTE | 2016-06-30 16:17 | RADRPT ---
PROCEDURE: US Abdomen. CLINICAL INDICATION: abdominal pain TECHNIQUE: Multiple real-time images were acquired of the patient's right upper quadrant abdomen a nd retroperitoneum utilizing a high resolution transducer. COMPARISON: 06/30/2016, 06/07/2016 FINDINGS: The liver demonstrates increased echogenicity. The liver is normal in size and no focal solid lesio ns are seen. The liver measures 16.4 cm in length. The portal vein is patent with normal direction o f flow. No intrahepatic biliary dilatation is seen. The gallbladder is moderately distended, measuring 11 cm in length. There is a questionable small am ount of sludge within the gallbladder. No gallstones are identified within the gallbladder. There i s no pericholecystic fluid or gallbladder wall thickening. The common bile duct measures 11 mm in ma ximal dimension. The pancreas is not seen due to overlying bowel gas. No free fluid is identified. The right kidney is normal in size, and demonstrate normal echogenicity and cortical thickness. The right kidney measures 10.9 cm in long dimension. There is no evidence of hydronephrosis. There are no kidney stones. RPTAT: AA IMPRESSION: Moderately distended gallbladder with a questionable small amount of sludge. No evidence of gallbla dder wall thickening or pericholecystic fluid. Dilated CBD measuring 11 mm. Mild fatty infiltration of the liver. .Anthony Ferguson MD, MD Date Time Electronically viewed and signed by .Anthony Ferguson MD, MD on 06/30/2016 16:17 .S/
[2016-06-30] MEDS ORDERED: NACL 0.9% 3 ML SYG IV SCH (16:30)
[2016-06-30] MEDS ORDERED: HYDROCODONE/APAP (5/325) TAB PO PRN (16:30)
[2016-06-30] MEDS ORDERED: ACETAMINOPHEN 650 MG SUPP PR PRN (16:30)
[2016-06-30] MEDS ORDERED: BISACODYL 10 MG SUPP PR PRN (16:30)
[2016-06-30] MEDS ORDERED: DOCUSATE SODIUM 100 MG CAP PO PRN (16:30)
[2016-06-30] MEDS ORDERED: ACETAMINOPHEN 325 MG TAB PO PRN (16:30)
[2016-06-30] MEDS ORDERED: MAGNESIUM HYDROXIDE 30ML CUP PO PRN (16:30)
[2016-06-30 16:40] LABS: ADD UMIC YES; URINE BILIRUBIN (Dip) 3+ (NEGATIVE); URINE BLOOD (Dip) 2+ (NEGATIVE); URINE COLOR AMBER (YELLOW); URINE GLUCOSE (Dip) NEGATIVE (NEGATIVE); URINE KETONES (Dip) NEGATIVE (NEGATIVE); URINE LEUKOCYTE ESTERASE (Dip) NEGATIVE (NEGATIVE); URINE NITRITE (Dip) POSITIVE (NEGATIVE); URINE TOTAL PROTEIN (Dip) 2+ (NEGATIVE); URINE UROBILINOGEN (Dip) 0.2 E.U./dL (0.1-1.0)
[2016-06-30 16:59] LABS: BACTERIA,URINE MANY; ICTOTEST POSITIVE (NEGATIVE); MUCUS,URINE MANY; TRANSITIONAL EPI CELLS,URINE MODERATE
--- NOTE | 2016-06-30 17:17 | CONS ---
Date/Time of Note Date/Time of Note DATE: 06/30/16 TIME: 17:08 Assessment/Plan Assessment/Plan Chief Complaint/Hosp Course The patient is a 60 year old male with metastatic urothelial cancer who had presented during the last admission with gastric outlet obstruction status post duodenal stent 06/02/16 with duodenal, periduodenal LAD, bladder mass, initially thought GI primary and FOLFOX given 06/04/16 based on prelim path and severe obstructive symptoms, however further path review showed primary. I had planned to switch to gem/carbo (carbo given borderline PS) however awaiting shipment of drugs. Patient now readmitted with sepsis with abdominal pain. UA demonstrates nitrates, many bacteria. Lactate 4.0. LFTs noted to be elevated; previously elevated during the last admission with unremarkable US except sludge, with LFTs downtrending prior to discharge. - Possible source includes UTI vs. biliary source, f/u primary team, consider GI consult. US showed moderately distended gallbladder with a questionable small amount of sludge. No evidence of gallbladder wall thickening or pericholecystic fluid. Dilated CBD measuring 11 mm. Mild fatty infiltration of the liver. - CT A/P demonstrates infiltrative neoplasm involving the cecum, ascending colon and hepatic flexure with extension of tumor to the serosa involving the lateral wall of the duodenum. This has advanced as compared to 05/27/2016. Findings suspicious for carcinomatosis. - I had planned to start gemcitabine 1000 mg/m2 D1, 8 and carboplatin AUC 4.5 D1 as soon as meds arrive, however will have to hold off for now until sepsis resolves. Will continue to follow Problems: Consultation Date/Type/Reason Admit Date/Time Date of Consultation: Jun 30, 2016 Type of Consultation: Oncology Reason for Consultation Metastatic urothelial cancer Hx of Present Illness The patient is a 60 year old male with metastatic urothelial cancer who had presented during the last admission with gastric outlet obstruction status post duodenal stent 06/02/16 with duodenal, periduodenal LAD, bladder mass, initially thought GI primary and FOLFOX given 06/04/16 based on prelim path and severe obstructive symptoms, however further path review showed primary. I had planned to switch to gem/carbo (carbo given borderline PS) however awaiting shipment of drugs. Patient now readmitted with sepsis with abdominal pain, which he describes as diffuse pain that started this morning. He states that it is better now after pain meds. He denies dysuria or urinary frequency. No fevers but he does endorse chills. UA demonstrates nitrates, many bacteria. Lactate 4.0. LFTs noted to be elevated; previously elevated during the last admission with unremarkable US except sludge, with LFTs downtrending prior to discharge. BP noted to be 84/56, HR 110. Abdominal US 06/30/16 Moderately distended gallbladder with a questionable small amount of sludge. No evidence of gallbladder wall thickening or pericholecystic fluid. Dilated CBD measuring 11 mm. Mild fatty infiltration of the liver. CT A/P non-contrast 06/30/16 1. Pulmonary hyperinflation with plate-like areas of atelectasis in the right and left lower lobes. Peripheral ground-glass infiltrates in the left lower lobe possibly secondary to atelectasis. 2. Hepatomegaly. Fatty infiltration of the liver. 1 mm calcified granuloma in the left lobe of the liver. 3. Dilated extrahepatic common bile duct measuring 1.5 cm. 4. Duodenal stent with thickening of the duodenal mucosa. 5. Enlarged periaortic retroperitoneal lymph nodes. 6. Atherosclerotic vascular disease 7. Free fluid in the pelvis. There are 8 bilateral inguinal hernias containing fat. The left inguinal hernia also contains fluid. 8. Osteoarthritis of the thoracic and lumbosacral spine. 9. Calcified subcarinal lymph node in the chest. 10. Infiltrative neoplasm involving the cecum, ascending colon and hepatic flexure with extension of tumor to the serosa involving the lateral wall of the duodenum. This has advanced as compared to 05/27/2016. Findings suspicious for carcinomatosis. 11. Prominent/enlarged prostate gland measuring 4.9 cm transverse by 3.2 cm AP. 12. Ascitic fluid is noted in the right pericolic gutter and lower ventral pelvis. Past Medical History Medical History: no pertinent history Past Surgical History Past Surgical Hx: no surgical history Family History Significant Family History: no pertinent family hx Social History Smoking Status: Never smoker Exam/Review of Systems Vital Signs Vitals Vital Signs Date Time Temp Pulse Resp B/P Pulse Ox O2 Delivery O2 Flow Rate FiO2 06/30/16 15:01 96 18 99/69 98 Room Air 06/30/16 13:25 2 06/30/16 11:51 98.5 Exam Constitutional: alert, oriented Psych: no complaints Eyes: icteric, other (jaundiced) Neck: supple Respiratory: clear to auscultation Cardiovascular: regular rate and rhythm Gastrointestinal: non-tender, soft Musculoskeletal: nl extremities to inspection Neurological: RADIAL SAW OPERATOR II-XII intact Results Result Diagram: 06/30/16 1240 06/30/16 1240 Results 24 hrs Laboratory Tests Test 06/30/16 12:40 06/30/16 16:00 White Blood Count 19.1 #H Red Blood Count 4.48 L Hemoglobin 13.5 L Hematocrit 40.2 L Mean Corpuscular Volume 89.7 Mean Corpuscular Hemoglobin 30.1 Mean Corpuscular Hemoglobin Concent 33.6 Red Cell Distribution Width 14.5 Platelet Count 268 # Mean Platelet Volume 9.7 Neutrophils % 94.2 H Lymphocytes % 2.8 L Monocytes % 1.7 Eosinophils % 0.0 Basophils % 0.1 Nucleated Red Blood Cells % 0.0 Neutrophils # 18.0 H Lymphocytes # 0.5 L Monocytes # 0.3 Eosinophils # 0.0 Basophils # 0.0 Nucleated Red Blood Cells # 0.0 Prothrombin Time 13.8 Prothrombin Time Ratio 1.1 INR International Normalized Ratio 1.06 Activated Partial Thromboplast Time 32.2 Sodium Level 132 L Potassium Level 3.9 Chloride Level 91 L Carbon Dioxide Level 24 Anion Gap 21 H Blood Urea Nitrogen 11 Creatinine 0.76 Glucose Level 134 Lactic Acid Level 4.0 H Calcium Level 8.9 Total Bilirubin 4.0 H Direct Bilirubin 2.80 H Indirect Bilirubin 1.2 H Aspartate Amino Transf (AST/SGOT) 109 H Alanine Aminotransferase (ALT/SGPT) 122 H Alkaline Phosphatase 631 H Troponin I < 0.012 Total Protein 7.0 Albumin 3.2 L Globulin 3.80 H Albumin/Globulin Ratio 0.84 Urine Color WILIAN Urine Clarity SLIGHTLY CLOUDY Urine pH 6.0 Urine Specific [place] 1.010 Urine Ketones NEGATIVE Urine Nitrite POSITIVE H Urine Bilirubin 3+ H Urine Ictotest POSITIVE Urine Urobilinogen 0.2 E.U./dL Urine Leukocyte Esterase NEGATIVE Urine Microscopic RBC 5-10 Urine Microscopic WBC NONE SEEN Urine Transitional Epithelial Cells MODERATE Urine Bacteria MANY Urine Mucus MANY Urine Hemoglobin 2+ H Urine Glucose NEGATIVE Urine Total Protein 2+ H Medications Medications Current Medications Potassium Chloride/Sodium Chloride (NS-KCl 20 Meq) 1,000 ml @ 80 mls/hr [id number] IV ; Start 06/30/16 at 16:18 Ondansetron HCl (Zofran Inj) 4 mg Q6H PRN IV NAUSEA AND/OR VOMITING; Start at 16:30 Acetaminophen (Tylenol Tab) 650 mg Q6H PRN PO PAIN LEVEL 1-3 OR FEVER; Start at 16:30 Acetaminophen (Tylenol Supp) 650 mg Q6H PRN [place] PAIN LEVEL 1-3 OR FEVER; Start 06/30/16 at 16:30 Acetaminophen/ Hydrocodone Bitart ([place] (5/325)) 1 tab Q6H PRN PO MODERATE PAIN LEVEL 4-6; Start 06/30/16 at 16:30 Acetaminophen/ Hydrocodone Bitart ([place] (5/325)) 2 tab Q6H PRN PO SEVERE PAIN LEVEL 7-10; Start 06/30/16 at 16:30 Morphine Sulfate (morphine) 2 mg Q4H PRN IV SEVERE PAIN LEVEL 7-10; Start 06/30 at 16:30 Docusate Sodium (Colace) 100 mg Q12H PRN PO CONSTIPATION; Start 06/30/16 at 16: 30 Magnesium Hydroxide (Milk Of Mag) 30 ml DAILY PRN PO CONSTIPATION; Start at 16:30 Bisacodyl (Dulcolax Supp) 10 mg DAILY PRN [place] CONSTIPATION; Start 06/30/16 at 16 :30 Pantoprazole (Protonix Iv) 40 mg DAILY@06 IV ; Start 07/01/16 at 06:00 Heparin Sodium (Porcine) (Heparin (5000 Units/0.5 ml)) 5,000 unit Q12 SC ; Start 06/30/16 at 21:00 DARBY KNOWLES MD Jun 30, 2016 17:17
[2016-06-30] MEDS: NS + KCL 20 MEQ 1,000 ML IV SCH (17:25)
[2016-06-30] MEDS ORDERED: VANCOMYCIN IV PER PHARMACY XX SCH (17:30)
--- NOTE | 2016-06-30 17:30 | HP ---
Date/Time of Note Date/Time of Note DATE: 06/30/16 TIME: 17:19 Assessment/Plan VTE Prophylaxis VTE Prophylaxis Intervention: SCD's Assessment/Plan Chief Complaint/Hosp Course Impression and plan 1. Sepsis. Etiology and workup pending. Follow-up on panculture. Continue on broad antibiotics for now. Will get ID consult to follow as well. 2. Suspect carcinomatosis per abdominal imaging. Surgeon to follow. Continue with analgesics for now. 3. Suspect choledocholithiasis with CBD dilation per abdominal ultrasound imaging. Will get machinist set up follow again. Keep n.p.o. for now. Continue with IV hydration. 4. Leukocytosis secondary to #1. Continue with antibiotics. Antipyretics for fever. 5. Metastatic adenocarcinoma of uroepithelial origin. Patient last chemotherapy was noted 3 weeks prior to this admission. Next reported scheduled chemotherapy as July 07, 2016. Oncologist to follow. Will follow up with recommendations GERD prophylaxis: PPI Admission process 40 minutes Discussed plan of care with Dr. Huang Problems: HPI/ROS Admit Date/Time Admit Date/Time Hx of Present Illness This is a 60-year-old male with history of metastatic urothelial cancer who was recently admitted and discharged on June 09, 2016 due to metastatic adenocarcinoma of uroepithelial CA with gastric outlet obstruction caused by mass status post stent who is back in to [facility] [place] due to reports of abdominal pain. According to the patient he had intermittent abdominal pain for 1 week duration. Was in until today where his pain increasingly got worse that he went to [facility] [place] for further evaluation. He reported having some minimal pain with oral consumption but also reported having pain whenever he would rest. He did report having some subjective fevers and chills but no nausea vomiting or diarrhea. He of note did report his last bowel movement was on June 30, 2016 in the morning. On further evaluation he did have infiltrative neoplasm involving the cecum, ascending colon and hepatic flexure with extension of tumor to the serosa involving the lateral wall of the duodenum. It is of note advanced since last imaging done on May 27, 2016 suspicious for carcinomatosis. Patient was also seen with white count of 19.1 and lactic acid of 4.0 and tachycardic with clinical picture of that of sepsis. Further imaging of abdominal ultrasound did also show dilated CBD measuring 11 mm with possible choledocholithiasis. At present patient remains afebrile but tachycardic. He still reports having diffuse abdominal pain but no other associated symptoms. Denies any chest pain or shortness of breath. He is also noted with transaminitis. We will evaluate him for the aformentiond issues PMH/Family/Social Past Medical History Medical/surgical history 1. Metastatic uroepithelial CA. 2. Gastric outlet obstruction status post stent Medical History: no pertinent history Past Surgical History Past Surgical Hx: no surgical history Family History Significant Family History: no pertinent family hx Social History Alcohol Use: none Smoking Status: Never smoker Drug Use: none Exam/Review of Systems Vital Signs Vitals Vital Signs Date Time Temp Pulse Resp B/P Pulse Ox O2 Delivery O2 Flow Rate FiO2 06/30/16 15:01 96 18 99/69 98 Room Air 06/30/16 13:25 2 06/30/16 11:51 98.5 Exam Constitutional: alert Psych: nl mood/affect Head: normocephalic Eyes: icteric (Minimally) Neck: non-tender, supple Respiratory: clear to auscultation, normal air movement Cardiovascular: other (Tachycardic) Gastrointestinal: soft, tender (Diffuse) Musculoskeletal: nl extremities to inspection Extremities: edema (Minimal bilateral lower extremity) Neurological: SHOPFITTER II-XII intact, nl mental status, nl speech Skin: nl turgor, other (Minimally jaundiced) Labs Result Diagram: 06/30/16 1240 06/30/16 1240 Medications Medications Current Medications Potassium Chloride/Sodium Chloride (NS-KCl 20 Meq) 1,000 ml @ 80 mls/hr [id number] IV ; Start 06/30/16 at 16:18 Ondansetron HCl (Zofran Inj) 4 mg Q6H PRN IV NAUSEA AND/OR VOMITING; Start at 16:30 Acetaminophen (Tylenol Tab) 650 mg Q6H PRN PO PAIN LEVEL 1-3 OR FEVER; Start at 16:30 Acetaminophen (Tylenol Supp) 650 mg Q6H PRN [place] PAIN LEVEL 1-3 OR FEVER; Start 06/30/16 at 16:30 Acetaminophen/ Hydrocodone Bitart ([place] (5/325)) 1 tab Q6H PRN PO MODERATE PAIN LEVEL 4-6; Start 06/30/16 at 16:30 Acetaminophen/ Hydrocodone Bitart ([place] (5/325)) 2 tab Q6H PRN PO SEVERE PAIN LEVEL 7-10; Start 06/30/16 at 16:30 Morphine Sulfate (morphine) 2 mg Q4H PRN IV SEVERE PAIN LEVEL 7-10; Start 06/30 at 16:30 Docusate Sodium (Colace) 100 mg Q12H PRN PO CONSTIPATION; Start 06/30/16 at 16: 30 Magnesium Hydroxide (Milk Of Mag) 30 ml DAILY PRN PO CONSTIPATION; Start at 16:30 Bisacodyl (Dulcolax Supp) 10 mg DAILY PRN [place] CONSTIPATION; Start 06/30/16 at 16 :30 Pantoprazole (Protonix Iv) 40 mg DAILY@06 IV ; Start 07/01/16 at 06:00 Heparin Sodium (Porcine) (Heparin (5000 Units/0.5 ml)) 5,000 unit Q12 SC ; Start 06/30/16 at 21:00 SHANTELLE TILLEY Jun 30, 2016 17:30
[2016-06-30] MEDS ORDERED: VANCOMYCIN 1.5 GM in SOD CHLORIDE 0.9% 250 ML IVPB SCH (20:30)
[2016-06-30] MEDS: HEPARIN 5,000 UNIT/0.5 ML VIAL SC SCH (21:00)
--- NOTE | 2016-06-30 21:04 | CONS ---
DATE OF ADMISSION: 06/30/2016 DATE OF CONSULTATION: 06/30/2016 TYPE OF CONSULTATION: Infectious Disease. REASON FOR CONSULTATION: Antibiotic management. 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 T he patient presented during his last admission with gastric outlet obstruction status post duodenal stent on 06/02/2016. The patient had a bladder mass in which initially thought to be GE by primary. However, further pathology showed primary. The patient now presents with abdominal pain for ap proximately 2 days' duration. It localizes to the lower abdomen and has achy pain with nausea and v omiting. He denies nausea or vomiting. He does not have any diarrhea associated with this. He has gastric carcinoma. He has a history of gastric carcinoma with possible metastasis to the bladder. He underwent chemotherapy last week and presents with abdominal pain. He has been seen by Dr. Rogelio Flores. PAST SURGICAL HISTORY: Status post appendectomy in 2008. FAMILY HISTORY: Noncontributory. SOCIAL HISTORY: He does not smoke, drink or abuse drugs. ALLERGIES: NONE TO PENICILLIN, SULFA OR FOODS. MEDICATIONS: Per chart. REVIEW OF SYSTEMS: As per HPI. PHYSICAL EXAMINATION: GENERAL: The patient is a well-developed, well-nourished elderly male who is alert, responsive, in no acute distress. VITAL SIGNS: Stable. He is afebrile. SKIN: Without generalized rash. HEENT: Within normal limits. NECK: Supple. LYMPH NODES: None palpable. CHEST: Decreased breath sounds at the bases. HEART: Without murmur or gallop. ABDOMEN: Soft, nontender. He has some epigastric tenderness to palpation. He has some mild abdomi nal distention without organosplenomegaly or masses. EXTREMITIES: Without cyanosis, clubbing, or edema. RECTAL AND GENITAL: Deferred. NEUROLOGIC: No focal neurological abnormalities. LABORATORY DATA: White count of 19.1, H and H of 13.5 and 40.2, platelet count 268,000. BUN and cr eatinine 11/0.76. HOSPITAL COURSE: The patient was started on ceftriaxone. A CT scan of the abdomen and pelvis witho ut contrast was done. He has pulmonary hyperinflation with plate-like atelectasis in the right lowe r lobe. Fatty infiltration of the liver, duodenal stent, periaortic intraperitoneal lymph nodes, fl uid in the pelvis, 8 bilateral inguinal hernias containing fat, infiltrative neoplasm involving the cecum, ascending colon and hepatic flexure with extension of the tumor to the serosa involving the l ateral wall of the duodenum. Findings suspicious for carcinomatosis, ascitic fluid in the right per icolic gutter. IMPRESSION AND PLAN: The patient is thought to possibly have severe sepsis. He had 2 sets of blood cultures and was given Zosyn as well as metronidazole and ceftriaxone. He should be continued on t he Zosyn. Microbiology is pending. Blood cultures, urine cultures. I will dictate my findings to the hospitalist. Dictated By: PENNY JOSEPH MD, JD/ANN MARIE Conf#: [id number] DID#: [id number]
[2016-07-01] MEDS ORDERED: PIPER-TAZO 3.375 GM IV (PMX) 100 ML IVPB SCH
[2016-07-01] MEDS: PIPER-TAZO 3.375 GM IV (PMX) 100 ML IVPB SCH ×4 (00:12→21:49)
[2016-07-01] MEDS: PANTOPRAZOLE 40 MG INJ IV SCH (05:10)
[2016-07-01 07:01] LABS: ALBUMIN 2.4 g/dl (3.3-4.9); ALBUMIN/GLOBULIN RATIO 0.82; BILIRUBIN,DIRECT 2.5 mg/dl (0.00-0.20); BILIRUBIN,INDIRECT 0.6 mg/dl (0-1.1); BILIRUBIN,TOTAL 3.1 mg/dl (0.2-1.3); CALCIUM 7.9 mg/dl (8.4-10.2); CHOL/HDL RATIO 7.5 RATIO; CREATININE 0.57 mg/dl (0.61-1.24); MAGNESIUM 1.9 mg/dl (1.7-2.5); PHOSPHORUS 4.5 mg/dl (2.5-4.9); TOTAL PROTEIN 5.3 g/dl (6.1-8.1)
[2016-07-01] MEDS: NS + KCL 20 MEQ 1,000 ML IV SCH ×2 (07:15→17:22)
[2016-07-01 07:16] LABS: T3 UPTAKE 47.9 % (23.5-40.5)
[2016-07-01 07:34] LABS: THYROID STIMULATING HORMONE 1.42 MIU/L (0.465-4.680)
[2016-07-01] MEDS: VANCOMYCIN 1 GM in NS 250 ML IVPB SCH ×2 (08:41→20:25)
[2016-07-01 09:36] VITALS: TEMP 98.2
[2016-07-01] MEDS: HEPARIN 5,000 UNIT/0.5 ML VIAL SC SCH ×2 (10:04→21:55)
[2016-07-01 15:08] VITALS: Ht 170.2 cm; Wt 70.0 kg
[2016-07-01 16:04] VITALS: PULSE 75
--- NOTE | 2016-07-01 16:06 | CONS ---
Date/Time of Note Date/Time of Note DATE: 07/01/16 TIME: 16:04 Assessment/Plan Assessment/Plan Chief Complaint/Hosp Course The patient is a 60 year old male with metastatic urothelial cancer who had presented during the last admission with gastric outlet obstruction status post duodenal stent 06/02/16 with duodenal, periduodenal LAD, bladder mass, initially thought GI primary and FOLFOX given 06/04/16 based on prelim path and severe obstructive symptoms, however further path review showed primary. I had planned to switch to gem/carbo (carbo given borderline PS) however awaiting shipment of drugs. Patient now readmitted with sepsis with abdominal pain. UA demonstrates nitrates, many bacteria. Lactate 4.0. LFTs noted to be elevated; previously elevated during the last admission with unremarkable US except sludge, with LFTs downtrending prior to discharge. - Patient now on vanc/zosyn with GNR bacteremia. Clinically improved with P 82 , BP up to 99/66. May need to remove port if pseudomonas or patient unstable, otherwise may be able to treat through. Follow up cultures. Would appreciate ID assistance. - Possible source includes UTI vs. biliary source, f/u primary team, appreciate GI recs, plan for possible ERCP. US showed moderately distended gallbladder with a questionable small amount of sludge. No evidence of gallbladder wall thickening or pericholecystic fluid. Dilated CBD measuring 11 mm. Mild fatty infiltration of the liver. LFTs improved from yesterday. - CT A/P demonstrates infiltrative neoplasm involving the cecum, ascending colon and hepatic flexure with extension of tumor to the serosa involving the lateral wall of the duodenum. This has advanced as compared to 05/27/2016. Findings suspicious for carcinomatosis. - I had planned to start gemcitabine 1000 mg/m2 D1, 8 and carboplatin AUC 4.5 D1 as soon as meds arrive, however will have to hold off for now until sepsis resolves and bacteremia has been cleared and adequately treated with at least 14 days of antibiotics for bacteremia. Will continue to follow Problems: Consultation Date/Type/Reason Admit Date/Time Jun 30, 2016 at 15:42 Initial Consult Date 06/30/16 Type of Consultation: Oncology 24 HR Interval Summary Free Text/Dictation Patient feeling better today, with decreased abdominal pain. Afebrile. Exam/Review of Systems Vital Signs Vitals Vital Signs Date Time Temp Pulse Resp B/P Pulse Ox O2 Delivery O2 Flow Rate FiO2 07/01/16 09:36 98.2 82 21 99/66 97 Room Air 06/30/16 13:25 2 Exam Constitutional: alert, oriented Psych: no complaints Eyes: icteric, other (jaundiced) Neck: supple Respiratory: clear to auscultation Cardiovascular: regular rate and rhythm Gastrointestinal: mid abdominal tenderness Musculoskeletal: nl extremities to inspection Neurological: OPENSTACK CLOUD CONSULTING ARCHITECT II-XII intact Results Result Diagram: 06/30/16 1240 07/01/16 0546 Results 24 hrs Laboratory Tests Test 06/30/16 18:25 06/30/16 22:10 07/01/16 05:46 Lactic Acid Level 3.1 H 1.3 Sodium Level 134 L Potassium Level 4.0 Chloride Level 106 # Carbon Dioxide Level 24 Anion Gap 8 # Blood Urea Nitrogen 9 Creatinine 0.57 L Glucose Level 96 Hemoglobin A1c 5.8 Calcium Level 7.9 L Phosphorus Level 4.5 Magnesium Level 1.9 Total Bilirubin 3.1 H Direct Bilirubin 2.50 H Indirect Bilirubin 0.6 Aspartate Amino Transf (AST/SGOT) 108 H Alanine Aminotransferase (ALT/SGPT) 108 H Alkaline Phosphatase 386 H Total Protein 5.3 #L Albumin 2.4 L Globulin 2.90 Albumin/Globulin Ratio 0.82 Triglycerides Level 190 H Cholesterol Level 120 LDL Cholesterol, Calculated 66 HDL Cholesterol 16 L Cholesterol/HDL Ratio 7.5 Thyroid Stimulating Hormone (TSH) 1.420 Free Thyroxine Index 4.26 H Thyroxine (T4) 8.9 Triiodothyronine (T3) Uptake 47.9 H Medications Medications Current Medications Potassium Chloride/Sodium Chloride (NS-KCl 20 Meq) 1,000 ml @ 80 mls/hr [id number] IV Last administered on 07/01/16t 07:15; Admin Dose 80 MLS/HR; Start at 16:18 Ondansetron HCl (Zofran Inj) 4 mg Q6H PRN IV NAUSEA AND/OR VOMITING; Start at 16:30 Acetaminophen (Tylenol Tab) 650 mg Q6H PRN PO PAIN LEVEL 1-3 OR FEVER; Start at 16:30 Acetaminophen (Tylenol Supp) 650 mg Q6H PRN [place] PAIN LEVEL 1-3 OR FEVER; Start 06/30/16 at 16:30 Acetaminophen/ Hydrocodone Bitart ([place] (5/325)) 1 tab Q6H PRN PO MODERATE PAIN LEVEL 4-6; Start 06/30/16 at 16:30 Acetaminophen/ Hydrocodone Bitart ([place] (5/325)) 2 tab Q6H PRN PO SEVERE PAIN LEVEL 7-10; Start 06/30/16 at 16:30 Morphine Sulfate (morphine) 2 mg Q4H PRN IV SEVERE PAIN LEVEL 7-10; Start 06/30 at 16:30 Docusate Sodium (Colace) 100 mg Q12H PRN PO CONSTIPATION; Start 06/30/16 at 16: 30 Magnesium Hydroxide (Milk Of Mag) 30 ml DAILY PRN PO CONSTIPATION; Start at 16:30 Bisacodyl (Dulcolax Supp) 10 mg DAILY PRN [place] CONSTIPATION; Start 06/30/16 at 16 :30 Pantoprazole (Protonix Iv) 40 mg DAILY@06 IV Last administered on 07/01/16 05: 10; Admin Dose 40 MG; Start 07/01/16 at 06:00 Heparin Sodium (Porcine) 5000 unit 5,000 unit Q12 SC Last administered on 10:04; Admin Dose 5,000 UNIT; Start 06/30/16 at 21:00 Piperacillin Sod/ Tazobactam Sod 100 ml @ 200 mls/hr Q8 IVPB Last administered on 07/01/16 15:06; Admin Dose 200 MLS/HR; Start 06/30/16 at 22:30 Vancomycin HCl (Vancocin) 250 ml @ 125 mls/hr Q12H IVPB Last administered on 08:41; Admin Dose 125 MLS/HR; Start 07/01/16 at 08:00 DARBY KNOWLES MD Jul 01, 2016 16:06
[2016-07-01 16:10] VITALS: BP 112/63; RESP 18
--- NOTE | 2016-07-01 17:01 | CONS ---
DATE OF ADMISSION: 06/30/2016 DATE OF CONSULTATION: HISTORY OF PRESENT ILLNESS: The patient is a 60-year-old gentleman with metastatic urothelial cance r, presented with gastric outlet obstruction requiring placement of a self-expanding non-covered met allic stent and with that, his symptoms completely got resolved and patient became pain free until 1 day prior to the hospitalization, patient developed again abdominal pain, was evaluated in the ER and found to have abnormal LFT. CAT scan and the sonogram both showed a dilatation of the biliary system so GI consult was called in. Patient also bacteria in the urine and lactate level was high. The patient is now on vancomycin and Zosyn. PHYSICAL EXAMINATION: VITALS: Stable. ABDOMEN: Benign. CARDIOVASCULAR, RESPIRATORY SYSTEM, CENTRAL NERVOUS SYSTEM: Grossly within normal limits. IMPRESSION: 1. Biliary obstruction. 2. Gram negative bacteremia, either from the urine or from the biliary system. 3. 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 PLAN: At this point, is to continue antibiotic and may proceed with ERCP. Dictated By: TIANNA WILSON/ANN MARIE Conf#: [id number] DID#: [id number]
--- NOTE | 2016-07-01 17:02 | PN ---
Date/Time of Note Date/Time of Note DATE: 07/01/16 TIME: 16:57 Assessment/Plan VTE Prophylaxis VTE Prophylaxis Intervention: SCD's Lines/Catheters IV [facility] ([facility] Peripheral IV Urinary Cath still in place: No Assessment/Plan Chief Complaint/Hosp Course Impression and plan 1. Sepsis. Etiology and workup pending. Follow-up on panculture. ID consult is following. Continue antibiotics for now. Antipyretics for fever 2. carcinomatosis per abdominal imaging. Surgeon to follow. Continue with analgesics for now. Advance diet as tolerated 3. Suspect choledocholithiasis with CBD dilation per abdominal ultrasound imaging. Heat Treat Puller is following. Tentative plan for ERCP. 4. Leukocytosis secondary to #1. Continue with antibiotics. Antipyretics for fever. 5. Metastatic adenocarcinoma of uroepithelial origin. Patient last chemotherapy was noted 3 weeks prior to this admission. Next reported scheduled chemotherapy as July 07, 2016. Continue with oncology recommendations. Chemotherapy to follow once sepsis resolved GERD prophylaxis: PPI Disposition and plan: Follow-up on cultures. Continue antibiotics. Lactic acid downward trended. Advance diet as tolerated. Tentative plan for possible ERCP. Will follow up Discussed plan of care with Dr. Huang Problems: Subjective 24 Hr Interval Summary Free Text/Dictation Patient reports less abdominal pain at this time. 2 out of 10 intensity more lower abdominal quadrants. No nausea vomiting or diarrhea reported Exam/Review of Systems Vital Signs Vitals Vital Signs Date Time Temp Pulse Resp B/P Pulse Ox O2 Delivery O2 Flow Rate FiO2 07/01/16 16:10 98.7 75 18 112/63 97 07/01/16 09:36 Room Air 06/30/16 13:25 2 Exam Constitutional: alert, oriented Head: normocephalic Eyes: Anicteric sclera Neck: supple, non-tender, No jvd Respiratory: No adventitious lung sounds Cardiovascular: regular rate and rhythm Gastrointestinal: Soft, minimally tender upon palpation more lower abdominal quadrants Musculoskeletal: nl extremities to inspection, nl gait and stance Extremities: normal pulses Neurological: nl mental status, nl speech, nl strength Skin: Jaundiced Results Result Diagram: 06/30/16 1240 07/01/16 0546 Results 24 hrs Laboratory Tests Test 06/30/16 18:25 06/30/16 22:10 07/01/16 05:46 Lactic Acid Level 3.1 H 1.3 Sodium Level 134 L Potassium Level 4.0 Chloride Level 106 # Carbon Dioxide Level 24 Anion Gap 8 # Blood Urea Nitrogen 9 Creatinine 0.57 L Glucose Level 96 Hemoglobin A1c 5.8 Calcium Level 7.9 L Phosphorus Level 4.5 Magnesium Level 1.9 Total Bilirubin 3.1 H Direct Bilirubin 2.50 H Indirect Bilirubin 0.6 Aspartate Amino Transf (AST/SGOT) 108 H Alanine Aminotransferase (ALT/SGPT) 108 H Alkaline Phosphatase 386 H Total Protein 5.3 #L Albumin 2.4 L Globulin 2.90 Albumin/Globulin Ratio 0.82 Triglycerides Level 190 H Cholesterol Level 120 LDL Cholesterol, Calculated 66 HDL Cholesterol 16 L Cholesterol/HDL Ratio 7.5 Thyroid Stimulating Hormone (TSH) 1.420 Free Thyroxine Index 4.26 H Thyroxine (T4) 8.9 Triiodothyronine (T3) Uptake 47.9 H Medications Medications Current Medications Potassium Chloride/Sodium Chloride (NS-KCl 20 Meq) 1,000 ml @ 80 mls/hr [id number] IV Last administered on 07/01/16t 07:15; Admin Dose 80 MLS/HR; Start at 16:18 Ondansetron HCl (Zofran Inj) 4 mg Q6H PRN IV NAUSEA AND/OR VOMITING; Start at 16:30 Acetaminophen (Tylenol Tab) 650 mg Q6H PRN PO PAIN LEVEL 1-3 OR FEVER; Start at 16:30 Acetaminophen (Tylenol Supp) 650 mg Q6H PRN [place] PAIN LEVEL 1-3 OR FEVER; Start 06/30/16 at 16:30 Acetaminophen/ Hydrocodone Bitart ([place] (5/325)) 1 tab Q6H PRN PO MODERATE PAIN LEVEL 4-6; Start 06/30/16 at 16:30 Acetaminophen/ Hydrocodone Bitart ([place] (5/325)) 2 tab Q6H PRN PO SEVERE PAIN LEVEL 7-10; Start 06/30/16 at 16:30 Morphine Sulfate (morphine) 2 mg Q4H PRN IV SEVERE PAIN LEVEL 7-10; Start 06/30 at 16:30 Docusate Sodium (Colace) 100 mg Q12H PRN PO CONSTIPATION; Start 06/30/16 at 16: 30 Magnesium Hydroxide (Milk Of Mag) 30 ml DAILY PRN PO CONSTIPATION; Start 4/27/ 17 at 16:30 Bisacodyl (Dulcolax Supp) 10 mg DAILY PRN [place] CONSTIPATION; Start 06/30/16 at 16 :30 Pantoprazole (Protonix Iv) 40 mg DAILY@06 IV Last administered on 07/01/16 05: 10; Admin Dose 40 MG; Start 07/01/16 at 06:00 Heparin Sodium (Porcine) 5000 unit 5,000 unit Q12 SC Last administered on 10:04; Admin Dose 5,000 UNIT; Start 06/30/16 at 21:00 Piperacillin Sod/ Tazobactam Sod 100 ml @ 200 mls/hr Q8 IVPB Last administered on 07/01/16 15:06; Admin Dose 200 MLS/HR; Start 06/30/16 at 22:30 Vancomycin HCl (Vancocin) 250 ml @ 125 mls/hr Q12H IVPB Last administered on 08:41; Admin Dose 125 MLS/HR; Start 07/01/16 at 08:00 SHANTELLE TILLEY Jul 01, 2016 17:01
--- NOTE | 2016-07-01 17:39 | CONS ---
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 No evidence of gallbladder wall thickening or pericholecystic fluid. * Dilated CBD measuring 11 mm. * Mild fatty infiltration of the liver. PHYSICAL EXAMINATION: GENERAL: VSS, NADm, no fevers HEENT: Unremarkable, NECK: Supple CHEST: Equal chest rise bilaterally, without dyspnea on observation HEART: Pulse RRR ABDOMEN: Soft, nontender EXTREMITIES: Warm,moves all extremities SKIN: Warm, dry ID ASSESSMENT: 60 yo M admitted with: Urethral vs gastric primary cancer w/carcinomatosis obstruction of the third part of the duodenum-> S/P self-expanding metallic stent 1. Sepsis on admission with transient hypotension, lactic acidosis 4.0 tachycardia, leukocytosis => DDx UTI vs Bilary sepsis 2. (+)GNR bacteremia 2/2 #1 3. UTI -> Cx w/immature growth 4. Biliary obstruction -> GI following INVASIVES: *PIV, duodenal stent , Port-A-Cath ABX ALLERGIES: KNDA CURRENT ABX: DAY #2 => Vanco IV #2 + Zosyn #2 ID RECOMMENDATIONS: 1. Repeat BCx x1 via Port-A-Cath -- Consider DC Port-A-Cath, place alternative PIV and treat w/ABX x 48 HRs prior to replacing new line for Chemo ?PICC 2. Continue current ABX REQUIRES at least 14 days ABX for (+)Blood Cx 3. Await final micro pending . Problems: Consultation Date/Type/Reason Admit Date/Time Jun 30, 2016 at 15:42 Initial Consult Date 06/30/16 Type of Consultation: ID Exam/Review of Systems Vital Signs Vitals Vital Signs Date Time Temp Pulse Resp B/P Pulse Ox O2 Delivery O2 Flow Rate FiO2 4/28/17 16:10 98.7 75 18 112/63 97 07/01/16 09:36 Room Air 06/30/16 13:25 2 Results Result Diagram: 06/30/16 1240 07/01/16 0546 Results 24 hrs Laboratory Tests Test 06/30/16 18:25 06/30/16 22:10 07/01/16 05:46 Lactic Acid Level 3.1 H 1.3 Sodium Level 134 L Potassium Level 4.0 Chloride Level 106 # Carbon Dioxide Level 24 Anion Gap 8 # Blood Urea Nitrogen 9 Creatinine 0.57 L Glucose Level 96 Hemoglobin A1c 5.8 Calcium Level 7.9 L Phosphorus Level 4.5 Magnesium Level 1.9 Total Bilirubin 3.1 H Direct Bilirubin 2.50 H Indirect Bilirubin 0.6 Aspartate Amino Transf (AST/SGOT) 108 H Alanine Aminotransferase (ALT/SGPT) 108 H Alkaline Phosphatase 386 H Total Protein 5.3 #L Albumin 2.4 L Globulin 2.90 Albumin/Globulin Ratio 0.82 Triglycerides Level 190 H Cholesterol Level 120 LDL Cholesterol, Calculated 66 HDL Cholesterol 16 L Cholesterol/HDL Ratio 7.5 Thyroid Stimulating Hormone (TSH) 1.420 Free Thyroxine Index 4.26 H Thyroxine (T4) 8.9 Triiodothyronine (T3) Uptake 47.9 H Medications Medications Current Medications Potassium Chloride/Sodium Chloride (NS-KCl 20 Meq) 1,000 ml @ 80 mls/hr [id number] IV Last administered on 07/01/16t 17:22; Admin Dose 80 MLS/HR; Start at 16:18 Ondansetron HCl (Zofran Inj) 4 mg Q6H PRN IV NAUSEA AND/OR VOMITING; Start at 16:30 Acetaminophen (Tylenol Tab) 650 mg Q6H PRN PO PAIN LEVEL 1-3 OR FEVER; Start at 16:30 Acetaminophen (Tylenol Supp) 650 mg Q6H PRN [place] PAIN LEVEL 1-3 OR FEVER; Start 06/30/16 at 16:30 Acetaminophen/ Hydrocodone Bitart ([place] (5/325)) 1 tab Q6H PRN PO MODERATE PAIN LEVEL 4-6; Start 06/30/16 at 16:30 Acetaminophen/ Hydrocodone Bitart ([place] (5/325)) 2 tab Q6H PRN PO SEVERE PAIN LEVEL 7-10; Start 06/30/16 at 16:30 Morphine Sulfate (morphine) 2 mg Q4H PRN IV SEVERE PAIN LEVEL 7-10; Start 06/30 at 16:30 Docusate Sodium (Colace) 100 mg Q12H PRN PO CONSTIPATION; Start 06/30/16 at 16: 30 Magnesium Hydroxide (Milk Of Mag) 30 ml DAILY PRN PO CONSTIPATION; Start at 16:30 Bisacodyl (Dulcolax Supp) 10 mg DAILY PRN [place] CONSTIPATION; Start 06/30/16 at 16 :30 Pantoprazole (Protonix Iv) 40 mg DAILY@06 IV Last administered on 07/01/16 05: 10; Admin Dose 40 MG; Start 07/01/16 at 06:00 Heparin Sodium (Porcine) 5000 unit 5,000 unit Q12 SC Last administered on 10:04; Admin Dose 5,000 UNIT; Start 06/30/16 at 21:00 Piperacillin Sod/ Tazobactam Sod 100 ml @ 200 mls/hr Q8 IVPB Last administered on 07/01/16 15:06; Admin Dose 200 MLS/HR; Start 06/30/16 at 22:30 Vancomycin HCl (Vancocin) 250 ml @ 125 mls/hr Q12H IVPB Last administered on 08:41; Admin Dose 125 MLS/HR; Start 07/01/16 at 08:00 ALEXANDER LEON NP Jul 01, 2016 17:39
[2016-07-01 20:11] VITALS: PULSE 72
[2016-07-01 20:38] VITALS: BP 116/68; RESP 19
[2016-07-02] VITALS (13 sets, daily range): BP systolic 115–141; BP diastolic 64–78; PULSE 66–84; RESP 15–20
[2016-07-02] MEDS: NS + KCL 20 MEQ 1,000 ML IV SCH ×2 (00:26→17:47)
[2016-07-02] MEDS: PIPER-TAZO 3.375 GM IV (PMX) 100 ML IVPB SCH ×3 (05:48→21:41)
[2016-07-02] MEDS: PANTOPRAZOLE 40 MG INJ IV SCH (05:48)
[2016-07-02 07:28] LABS: ADD SCAN DIFF NO
[2016-07-02 07:36] LABS: BASOPHILS % 0.2 % (0.0-2.0); EOSINOPHILS % 0.1 % (0.0-7.0); HEMATOCRIT 36.6 % (42.0-52.0); HEMOGLOBIN 12.4 g/dl (14.0-18.0); LYMPHOCYTES % 6.7 % (15.0-51.0); MEAN CORPUSCULAR HEMOGLOBIN 30.5 pg (29.0-33.0); MEAN CORPUSCULAR HGB CONC 33.9 g/dl (32.0-37.0); MEAN CORPUSCULAR VOLUME 89.9 fl (82.0-101.0); MEAN PLATELET VOLUME 10.6 fl (7.4-10.4); MONOCYTE # 0.4 10^3/ul (0.3-0.9); NEUTROPHIL # 12.9 10^3/ul (1.6-7.5); NEUTROPHILS % 88.6 % (39.0-77.0); PLATELET COUNT 206 10^3/UL (140-415); RED BLOOD COUNT 4.07 10^6/ul (4.70-6.10); RED CELL DISTRIBUTION WIDTH 15.5 % (11.5-14.5); WHITE BLOOD COUNT 14.5 10^3/ul (4.8-10.8)
[2016-07-02] MEDS: VANCOMYCIN 1 GM in NS 250 ML IVPB SCH (08:55)
[2016-07-02] MEDS: HEPARIN 5,000 UNIT/0.5 ML VIAL SC SCH ×2 (09:17→21:51)
[2016-07-02 09:34] LABS: ALBUMIN 2.6 g/dl (3.3-4.9); ALBUMIN/GLOBULIN RATIO 0.86; BILIRUBIN,DIRECT 2.9 mg/dl (0.00-0.20); BILIRUBIN,INDIRECT 0.9 mg/dl (0-1.1); BILIRUBIN,TOTAL 3.8 mg/dl (0.2-1.3); CALCIUM 8.3 mg/dl (8.4-10.2); CREATININE 0.5 mg/dl (0.61-1.24); POTASSIUM 4.4 mmol/L (3.5-5.1); TOTAL PROTEIN 5.6 g/dl (6.1-8.1)
--- NOTE | 2016-07-02 13:58 | PN ---
Date/Time of Note Date/Time of Note DATE: 07/02/16 TIME: 13:56 Assessment/Plan VTE Prophylaxis VTE Prophylaxis Intervention: anti-embolic stocking Lines/Catheters IV [facility] Peripheral IV Urinary Cath still in place: No Assessment/Plan Assessment/Plan 60 year old male with metastatic urothelial cancer who had presented during the last admission with gastric outlet obstruction status post duodenal stent with duodenal, periduodenal LAD, bladder mass, initially thought GI primary and FOLFOX given 06/04/16 based on prelim path and severe obstructive symptoms, however further path review showed primary. Patient now readmitted with sepsis with abdominal pain. - Patient now on vanc/zosyn with GNR bacteremia. - CT A/P demonstrates infiltrative neoplasm involving the cecum, ascending colon and hepatic flexure with extension of tumor to the serosa involving the lateral wall of the duodenum. This has advanced as compared to 05/27/2016. Findings suspicious for carcinomatosis. - Dr Mercado had planned to start gemcitabine 1000 mg/m2 D1, 8 and carboplatin AUC 4.5 D1 however will have to hold off for now until sepsis resolves and bacteremia has been cleared and adequately treated with at least 14 days of antibiotics for bacteremia. Subjective 24 Hr Interval Summary Constitutional: no complaints Eyes: no complaints Exam/Review of Systems Vital Signs Vitals Vital Signs Date Time Temp Pulse Resp B/P Pulse Ox O2 Delivery O2 Flow Rate FiO2 07/02/16 12:04 78 07/02/16 11:20 98.4 18 131/76 95 07/01/16 09:36 Room Air 06/30/16 13:25 2 Intake and Output 07/01/16 07/01/16 07/02/16 15:00 23:00 07:00 Intake Total 350 ml 1600 ml Balance 350 ml 1600 ml Exam Constitutional: alert, oriented Psych: nl mood/affect Eyes: nl conjunctiva Neck: supple Respiratory: normal air movement Gastrointestinal: soft Results Result Diagram: 07/02/16 0640 07/02/16 0640 Results 24 hrs Laboratory Tests Test 07/02/16 06:40 White Blood Count 14.5 #H Red Blood Count 4.07 L Hemoglobin 12.4 L Hematocrit 36.6 L Mean Corpuscular Volume 89.9 Mean Corpuscular Hemoglobin 30.5 Mean Corpuscular Hemoglobin Concent 33.9 Red Cell Distribution Width 15.5 H Platelet Count 206 # Mean Platelet Volume 10.6 H Neutrophils % 88.6 H Lymphocytes % 6.7 L Monocytes % 3.0 Eosinophils % 0.1 Basophils % 0.2 Nucleated Red Blood Cells % 0.0 Neutrophils # 12.9 H Lymphocytes # 1.0 Monocytes # 0.4 Eosinophils # 0.0 Basophils # 0.0 Nucleated Red Blood Cells # 0.0 Sodium Level 133 L Potassium Level 4.4 Chloride Level 104 Carbon Dioxide Level 22 Anion Gap 11 Blood Urea Nitrogen 13 Creatinine 0.50 L Glucose Level 105 Calcium Level 8.3 L Total Bilirubin 3.8 H Direct Bilirubin 2.90 H Indirect Bilirubin 0.9 Aspartate Amino Transf (AST/SGOT) 68 H Alanine Aminotransferase (ALT/SGPT) 96 H Alkaline Phosphatase 443 H Total Protein 5.6 L Albumin 2.6 L Globulin 3.00 Albumin/Globulin Ratio 0.86 Vancomycin Level Trough 7.9 L Medications Medications Current Medications Potassium Chloride/Sodium Chloride (NS-KCl 20 Meq) 1,000 ml @ 80 mls/hr [id number] IV Last administered on 07/02/16t 00:26; Admin Dose 80 MLS/HR; Start at 16:18 Ondansetron HCl (Zofran Inj) 4 mg Q6H PRN IV NAUSEA AND/OR VOMITING; Start at 16:30 Acetaminophen (Tylenol Tab) 650 mg Q6H PRN PO PAIN LEVEL 1-3 OR FEVER; Start at 16:30 Acetaminophen (Tylenol Supp) 650 mg Q6H PRN [place] PAIN LEVEL 1-3 OR FEVER; Start 06/30/16 at 16:30 Acetaminophen/ Hydrocodone Bitart ([place] (5/325)) 1 tab Q6H PRN PO MODERATE PAIN LEVEL 4-6; Start 06/30/16 at 16:30 Acetaminophen/ Hydrocodone Bitart ([place] (5/325)) 2 tab Q6H PRN PO SEVERE PAIN LEVEL 7-10; Start 06/30/16 at 16:30 Morphine Sulfate (morphine) 2 mg Q4H PRN IV SEVERE PAIN LEVEL 7-10; Start 06/30 at 16:30 Docusate Sodium (Colace) 100 mg Q12H PRN PO CONSTIPATION; Start 06/30/16 at 16: 30 Magnesium Hydroxide (Milk Of Mag) 30 ml DAILY PRN PO CONSTIPATION; Start at 16:30 Bisacodyl (Dulcolax Supp) 10 mg DAILY PRN [place] CONSTIPATION; Start 06/30/16 at 16 :30 Pantoprazole (Protonix Iv) 40 mg DAILY@06 IV Last administered on 07/02/16 05: 48; Admin Dose 40 MG; Start 07/01/16 at 06:00 Heparin Sodium (Porcine) 5000 unit 5,000 unit Q12 SC Last administered on 09:17; Admin Dose 5,000 UNIT; Start 06/30/16 at 21:00 Piperacillin Sod/ Tazobactam Sod 100 ml @ 200 mls/hr Q8 IVPB Last administered on 07/02/16 05:48; Admin Dose 200 MLS/HR; Start 06/30/16 at 22:30 Vancomycin HCl/ Sodium Chloride (Vancocin/NS) 250 ml @ 83.333 mls/ hr Q12H IVPB ; Start 07/02/16 at 20:00 DIAMOND ALY MD Jul 02, 2016 13:58
--- NOTE | 2016-07-02 15:24 | PN ---
Date/Time of Note Date/Time of Note DATE: 07/02/16 TIME: 15:21 Assessment/Plan VTE Prophylaxis VTE Prophylaxis Intervention: heparin Lines/Catheters IV Catheter Type (from Nrs): Peripheral IV Urinary Cath still in place: No Assessment/Plan Chief Complaint/Hosp Course Impression and plan 1. Sepsis. Patient with E. coli in the blood and Pseudomonas in the urine. Continue on antibiotics per ID recommendations. Consider possible Port-A-Cath DC should sepsis not improve 2. carcinomatosis per abdominal imaging. Surgeon to follow. Continue with analgesics for now. Tolerating diet well 3. Suspect choledocholithiasis with CBD dilation per abdominal ultrasound imaging. Conservation [employer] is following. Tentative plan for ERCP. 4. Leukocytosis secondary to #1. Continue with antibiotics. Antipyretics for fever. Appears to be improved 5. Metastatic adenocarcinoma of uroepithelial origin. Patient last chemotherapy was noted 3 weeks prior to this admission. . Chemotherapy to follow once sepsis resolved GERD prophylaxis: PPI Disposition and plan: Continue antibiotics. Monitor for improvement of sepsis. Tentative plan for ERCP. Continue inpatient monitoring Discussed plan of care with Dr. Huang Problems: Subjective 24 Hr Interval Summary Free Text/Dictation Comfortable at present. Reports less abdominal pain at this time Exam/Review of Systems Vital Signs Vitals Vital Signs Date Time Temp Pulse Resp B/P Pulse Ox O2 Delivery O2 Flow Rate FiO2 07/02/16 15:17 98.3 64 16 141/71 96 07/01/16 09:36 Room Air 06/30/16 13:25 2 Intake and Output 07/01/16 07/01/16 07/02/16 15:00 23:00 07:00 Intake Total 350 ml 1600 ml Balance 350 ml 1600 ml Exam Constitutional: alert, oriented Psych: nl mood/affect Head: normocephalic Eyes: icteric (Minimal) Neck: supple, No jvd Respiratory: clear to auscultation, normal air movement Cardiovascular: regular rate and rhythm Gastrointestinal: soft, tender (Minimal) Extremities: normal pulses Neurological: NUCLEAR SPECTROSCOPIST II-XII intact, nl mental status, nl speech Skin: nl turgor Results Result Diagram: 07/02/16 0640 07/02/16 0640 Results 24 hrs Laboratory Tests Test 07/02/16 06:40 White Blood Count 14.5 #H Red Blood Count 4.07 L Hemoglobin 12.4 L Hematocrit 36.6 L Mean Corpuscular Volume 89.9 Mean Corpuscular Hemoglobin 30.5 Mean Corpuscular Hemoglobin Concent 33.9 Red Cell Distribution Width 15.5 H Platelet Count 206 # Mean Platelet Volume 10.6 H Neutrophils % 88.6 H Lymphocytes % 6.7 L Monocytes % 3.0 Eosinophils % 0.1 Basophils % 0.2 Nucleated Red Blood Cells % 0.0 Neutrophils # 12.9 H Lymphocytes # 1.0 Monocytes # 0.4 Eosinophils # 0.0 Basophils # 0.0 Nucleated Red Blood Cells # 0.0 Sodium Level 133 L Potassium Level 4.4 Chloride Level 104 Carbon Dioxide Level 22 Anion Gap 11 Blood Urea Nitrogen 13 Creatinine 0.50 L Glucose Level 105 Calcium Level 8.3 L Total Bilirubin 3.8 H Direct Bilirubin 2.90 H Indirect Bilirubin 0.9 Aspartate Amino Transf (AST/SGOT) 68 H Alanine Aminotransferase (ALT/SGPT) 96 H Alkaline Phosphatase 443 H Total Protein 5.6 L Albumin 2.6 L Globulin 3.00 Albumin/Globulin Ratio 0.86 Vancomycin Level Trough 7.9 L Medications Medications Current Medications Potassium Chloride/Sodium Chloride (NS-KCl 20 Meq) 1,000 ml @ 80 mls/hr [id number] IV Last administered on 07/02/16t 00:26; Admin Dose 80 MLS/HR; Start at 16:18 Ondansetron HCl (Zofran Inj) 4 mg Q6H PRN IV NAUSEA AND/OR VOMITING; Start at 16:30 Acetaminophen (Tylenol Tab) 650 mg Q6H PRN PO PAIN LEVEL 1-3 OR FEVER; Start at 16:30 Acetaminophen (Tylenol Supp) 650 mg Q6H PRN [place] PAIN LEVEL 1-3 OR FEVER; Start 06/30/16 at 16:30 Acetaminophen/ Hydrocodone Bitart ([place] (5/325)) 1 tab Q6H PRN PO MODERATE PAIN LEVEL 4-6; Start 06/30/16 at 16:30 Acetaminophen/ Hydrocodone Bitart ([place] (5/325)) 2 tab Q6H PRN PO SEVERE PAIN LEVEL 7-10; Start 06/30/16 at 16:30 Morphine Sulfate (morphine) 2 mg Q4H PRN IV SEVERE PAIN LEVEL 7-10; Start 06/30 at 16:30 Docusate Sodium (Colace) 100 mg Q12H PRN PO CONSTIPATION; Start 06/30/16 at 16: 30 Magnesium Hydroxide (Milk Of Mag) 30 ml DAILY PRN PO CONSTIPATION; Start at 16:30 Bisacodyl (Dulcolax Supp) 10 mg DAILY PRN [place] CONSTIPATION; Start 06/30/16 at 16 :30 Pantoprazole (Protonix Iv) 40 mg DAILY@06 IV Last administered on 07/02/16 05: 48; Admin Dose 40 MG; Start 07/01/16 at 06:00 Heparin Sodium (Porcine) 5000 unit 5,000 unit Q12 SC Last administered on 09:17; Admin Dose 5,000 UNIT; Start 06/30/16 at 21:00 Piperacillin Sod/ Tazobactam Sod 100 ml @ 200 mls/hr Q8 IVPB Last administered on 07/02/16 14:31; Admin Dose 200 MLS/HR; Start 06/30/16 at 22:30 Vancomycin HCl/ Sodium Chloride (Vancocin/NS) 250 ml @ 83.333 mls/ hr Q12H IVPB ; Start 07/02/16 at 20:00 SHANTELLE TILLEY Jul 02, 2016 15:24
--- NOTE | 2016-07-02 16:08 | CONS ---
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 No evidence of gallbladder wall thickening or pericholecystic fluid. * Dilated CBD measuring 11 mm. * Mild fatty infiltration of the liver. PHYSICAL EXAMINATION: GENERAL: VSS, NADm, no fevers HEENT: Unremarkable, NECK: Supple CHEST: Equal chest rise bilaterally, without dyspnea on observation HEART: Pulse RRR ABDOMEN: Soft, nontender EXTREMITIES: Warm,moves all extremities SKIN: Warm, dry ID ASSESSMENT: 60 yo M admitted with: 1. 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 Sepsis on admission with transient hypotension, lactic acidosis 4.0 tachycardia, leukocytosis => DDx UTI vs Bilary sepsis 3. (+)GNR bacteremia = E.Coli => Biliary source vs Port-A-Cath 3. UTI ->PSAR 4. Biliary obstruction -> GI following INVASIVES: *PIV, duodenal stent , Port-A-Cath ABX ALLERGIES: KNDA CURRENT ABX: DAY #2 => Vanco IV #2 + Zosyn #2 ID RECOMMENDATIONS: 1. Repeat BCx x1 via Port-A-Cath -- There is no clear answer if GNR source is biliary vs Port-A-Cath * BCx(+)GNR from unknown source -> DDx Biliary Sepsis vs Port-A-Cath, Urine grew low colony PSAR cannot confirm urinary source * Dr. Irwin recommending DC Port-A-Cath since Chemo on hold anyway, place alternative PIV and treat w/ABX x 48 HRs prior to replacing new line for Chemo ? PICC 2. Continue current ABX REQUIRES at least 14 days ABX for (+)Blood Cx 3. Await final micro repeat BCx from Port-A-Cath -- Chemo on hold . . Problems: Consultation Date/Type/Reason Admit Date/Time Jun 30, 2016 at 15:42 Initial Consult Date 06/30/16 Type of Consultation: ID Exam/Review of Systems Vital Signs Vitals Vital Signs Date Time Temp Pulse Resp B/P Pulse Ox O2 Delivery O2 Flow Rate FiO2 07/02/16 15:17 98.3 64 16 141/71 96 07/01/16 09:36 Room Air 06/30/16 13:25 2 Intake and Output 07/01/16 07/01/16 07/02/16 15:00 23:00 07:00 Intake Total 350 ml 1600 ml Balance 350 ml 1600 ml Results Result Diagram: 07/02/16 0640 07/02/16 0640 Results 24 hrs Laboratory Tests Test 07/02/16 06:40 White Blood Count 14.5 #H Red Blood Count 4.07 L Hemoglobin 12.4 L Hematocrit 36.6 L Mean Corpuscular Volume 89.9 Mean Corpuscular Hemoglobin 30.5 Mean Corpuscular Hemoglobin Concent 33.9 Red Cell Distribution Width 15.5 H Platelet Count 206 # Mean Platelet Volume 10.6 H Neutrophils % 88.6 H Lymphocytes % 6.7 L Monocytes % 3.0 Eosinophils % 0.1 Basophils % 0.2 Nucleated Red Blood Cells % 0.0 Neutrophils # 12.9 H Lymphocytes # 1.0 Monocytes # 0.4 Eosinophils # 0.0 Basophils # 0.0 Nucleated Red Blood Cells # 0.0 Sodium Level 133 L Potassium Level 4.4 Chloride Level 104 Carbon Dioxide Level 22 Anion Gap 11 Blood Urea Nitrogen 13 Creatinine 0.50 L Glucose Level 105 Calcium Level 8.3 L Total Bilirubin 3.8 H Direct Bilirubin 2.90 H Indirect Bilirubin 0.9 Aspartate Amino Transf (AST/SGOT) 68 H Alanine Aminotransferase (ALT/SGPT) 96 H Alkaline Phosphatase 443 H Total Protein 5.6 L Albumin 2.6 L Globulin 3.00 Albumin/Globulin Ratio 0.86 Vancomycin Level Trough 7.9 L Medications Medications Current Medications Potassium Chloride/Sodium Chloride (NS-KCl 20 Meq) 1,000 ml @ 80 mls/hr [id number] IV Last administered on 07/02/16 00:26; Admin Dose 80 MLS/HR; Start at 16:18 Ondansetron HCl (Zofran Inj) 4 mg Q6H PRN IV NAUSEA AND/OR VOMITING; Start at 16:30 Acetaminophen (Tylenol Tab) 650 mg Q6H PRN PO PAIN LEVEL 1-3 OR FEVER; Start at 16:30 Acetaminophen (Tylenol Supp) 650 mg Q6H PRN [place] PAIN LEVEL 1-3 OR FEVER; Start 06/30/16 at 16:30 Acetaminophen/ Hydrocodone Bitart ([place] (5/325)) 1 tab Q6H PRN PO MODERATE PAIN LEVEL 4-6; Start 06/30/16 at 16:30 Acetaminophen/ Hydrocodone Bitart ([place] (5/325)) 2 tab Q6H PRN PO SEVERE PAIN LEVEL 7-10; Start 06/30/16 at 16:30 Morphine Sulfate (morphine) 2 mg Q4H PRN IV SEVERE PAIN LEVEL 7-10; Start 06/30 at 16:30 Docusate Sodium (Colace) 100 mg Q12H PRN PO CONSTIPATION; Start 06/30/16 at 16: 30 Magnesium Hydroxide (Milk Of Mag) 30 ml DAILY PRN PO CONSTIPATION; Start at 16:30 Bisacodyl (Dulcolax Supp) 10 mg DAILY PRN [place] CONSTIPATION; Start 06/30/16 at 16 :30 Pantoprazole (Protonix Iv) 40 mg DAILY@06 IV Last administered on 07/02/16 05: 48; Admin Dose 40 MG; Start 07/01/16 at 06:00 Heparin Sodium (Porcine) 5000 unit 5,000 unit Q12 SC Last administered on 09:17; Admin Dose 5,000 UNIT; Start 06/30/16 at 21:00 Piperacillin Sod/ Tazobactam Sod 100 ml @ 200 mls/hr Q8 IVPB Last administered on 07/02/16 14:31; Admin Dose 200 MLS/HR; Start 06/30/16 at 22:30 Vancomycin HCl/ Sodium Chloride (Vancocin/NS) 250 ml @ 83.333 mls/ hr Q12H IVPB ; Start 07/02/16 at 20:00 ALEXANDER LEON NP Jul 02, 2016 16:08
--- NOTE | 2016-07-02 16:44 | CONS ---
Date/Time of Note Date/Time of Note DATE: 07/02/16 TIME: 16:43 Assessment/Plan Assessment/Plan Additional Assessment/Plan IMPRESSION: 1. Biliary obstruction. 2. Gram negative bacteremia, either from the urine or from the biliary system. 3. 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 4. Cecal mass most probably metastatic PLAN: At this point, is to continue antibiotic and may proceed with ERCP. Consultation Date/Type/Reason Admit Date/Time Jun 30, 2016 at 15:42 Initial Consult Date 06/30/16 Type of Consultation: ID 24 HR Interval Summary Constitutional: improved Exam/Review of Systems Vital Signs Vitals Vital Signs Date Time Temp Pulse Resp B/P Pulse Ox O2 Delivery O2 Flow Rate FiO2 07/02/16 16:04 66 07/02/16 15:17 98.3 16 141/71 96 07/01/16 09:36 Room Air 06/30/16 13:25 2 Intake and Output 07/01/16 07/01/16 07/02/16 15:00 23:00 07:00 Intake Total 350 ml 1600 ml Balance 350 ml 1600 ml Exam Constitutional: alert, oriented, well developed Psych: nl mood/affect, no complaints Head: atraumatic, normocephalic Eyes: EOMI, PERRL, nl conjunctiva, nl lids, nl sclera ENMT: nl external ears & nose, nl lips & teeth, nl nasal mucosa & septum Neck: non-tender, supple Respiratory: clear to auscultation, normal air movement Cardiovascular: nl pulses, regular rate and rhythm Gastrointestinal: nl liver, spleen, non-tender, soft Musculoskeletal: nl extremities to inspection, nl gait and stance Extremities: normal pulses 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, nl mental status, nl speech, nl strength Skin: nl turgor, No rash or lesions Lymph: nl lymph nodes Results Result Diagram: 07/02/16 0640 07/02/16 0640 Results 24 hrs Laboratory Tests Test 07/02/16 06:40 White Blood Count 14.5 #H Red Blood Count 4.07 L Hemoglobin 12.4 L Hematocrit 36.6 L Mean Corpuscular Volume 89.9 Mean Corpuscular Hemoglobin 30.5 Mean Corpuscular Hemoglobin Concent 33.9 Red Cell Distribution Width 15.5 H Platelet Count 206 # Mean Platelet Volume 10.6 H Neutrophils % 88.6 H Lymphocytes % 6.7 L Monocytes % 3.0 Eosinophils % 0.1 Basophils % 0.2 Nucleated Red Blood Cells % 0.0 Neutrophils # 12.9 H Lymphocytes # 1.0 Monocytes # 0.4 Eosinophils # 0.0 Basophils # 0.0 Nucleated Red Blood Cells # 0.0 Sodium Level 133 L Potassium Level 4.4 Chloride Level 104 Carbon Dioxide Level 22 Anion Gap 11 Blood Urea Nitrogen 13 Creatinine 0.50 L Glucose Level 105 Calcium Level 8.3 L Total Bilirubin 3.8 H Direct Bilirubin 2.90 H Indirect Bilirubin 0.9 Aspartate Amino Transf (AST/SGOT) 68 H Alanine Aminotransferase (ALT/SGPT) 96 H Alkaline Phosphatase 443 H Total Protein 5.6 L Albumin 2.6 L Globulin 3.00 Albumin/Globulin Ratio 0.86 Vancomycin Level Trough 7.9 L Medications Medications Current Medications Potassium Chloride/Sodium Chloride (NS-KCl 20 Meq) 1,000 ml @ 80 mls/hr [id number] IV Last administered on 07/02/16t 00:26; Admin Dose 80 MLS/HR; Start at 16:18 Ondansetron HCl (Zofran Inj) 4 mg Q6H PRN IV NAUSEA AND/OR VOMITING; Start at 16:30 Acetaminophen (Tylenol Tab) 650 mg Q6H PRN PO PAIN LEVEL 1-3 OR FEVER; Start at 16:30 Acetaminophen (Tylenol Supp) 650 mg Q6H PRN [place] PAIN LEVEL 1-3 OR FEVER; Start 06/30/16 at 16:30 Acetaminophen/ Hydrocodone Bitart ([place] (5/325)) 1 tab Q6H PRN PO MODERATE PAIN LEVEL 4-6; Start 06/30/16 at 16:30 Acetaminophen/ Hydrocodone Bitart ([place] (5/325)) 2 tab Q6H PRN PO SEVERE PAIN LEVEL 7-10; Start 06/30/16 at 16:30 Morphine Sulfate (morphine) 2 mg Q4H PRN IV SEVERE PAIN LEVEL 7-10; Start 06/30 at 16:30 Docusate Sodium (Colace) 100 mg Q12H PRN PO CONSTIPATION; Start 06/30/16 at 16: 30 Magnesium Hydroxide (Milk Of Mag) 30 ml DAILY PRN PO CONSTIPATION; Start at 16:30 Bisacodyl (Dulcolax Supp) 10 mg DAILY PRN [place] CONSTIPATION; Start 06/30/16 at 16 :30 Pantoprazole (Protonix Iv) 40 mg DAILY@06 IV Last administered on 07/02/16 05: 48; Admin Dose 40 MG; Start 07/01/16 at 06:00 Heparin Sodium (Porcine) 5000 unit 5,000 unit Q12 SC Last administered on 09:17; Admin Dose 5,000 UNIT; Start 06/30/16 at 21:00 Piperacillin Sod/ Tazobactam Sod 100 ml @ 200 mls/hr Q8 IVPB Last administered on 07/02/16 14:31; Admin Dose 200 MLS/HR; Start 06/30/16 at 22:30 Vancomycin HCl/ Sodium Chloride (Vancocin/NS) 250 ml @ 83.333 mls/ hr Q12H IVPB ; Start 07/02/16 at 20:00 TIANNA SALINAS MD Jul 02, 2016 16:44
--- NOTE | 2016-07-02 19:00 | PN ---
Date/Time of Note Date/Time of Note DATE: 07/01/16 TIME: 18:54 Assessment/Plan Lines/Catheters IV Catheter Type (from [facility]): Peripheral IV [place] in Place (from [facility]): No Assessment/Plan Chief Complaint/Hosp Course 1. Sepsis 2nd biliary obstruction -abx -ivf -supportive care -GI for ? ERCP 2. Transaminitis with Hyperbilirubinemia ? 2nd biliary obstruction ? 2nd tumor vs stent vs stone vs other -as above 3. Metastatic Urothelial cancer with ? carcinomatosis -heme/onc for tx after sepsis resolution 4. Hx obstructed duodenum with gastric outlet obstruction s/p duodenal stent 5. Steatosis -Eventual nutrition and lifestyle optimization 6. Weight loss probably secondary to above -As above Thank you, Late entry 07/01 Dictation #: [id number] Problems: Subjective 24 Hr Interval Summary No f/c. Min abdominal pain. No chest pain or shortness of breath. No cough. No seizure. No headache, visual, or neurologic changes. No dysuria. Exam/Review of Systems Vital Signs Vitals Vital Signs Date Time Temp Pulse Resp B/P Pulse Ox O2 Delivery O2 Flow Rate FiO2 07/02/16 16:04 66 07/02/16 15:17 98.3 16 141/71 96 07/01/16 09:36 Room Air 06/30/16 13:25 2 Intake and Output 07/01/16 07/01/16 07/02/16 15:00 23:00 07:00 Intake Total 350 ml 1600 ml Balance 350 ml 1600 ml Exam Free Text/Dictation Constitutional: alert, oriented, No distress Psych: nl mood/affect, No anxiety, No confusion Head: atraumatic, normocephalic Eyes: EOMI, PERRL, nl conjunctiva, icterus ENMT: mucosa pink and moist, nl external ears & nose, nl lips & teeth Neck: non-tender, supple, No jvd, No masses Respiratory: normal air movement, No congested cough, No labored breathing Cardiovascular: regular rate and rhythm, No edema Gastrointestinal: min-tender, soft, No distended, No rebound or guarding Genitourinary - Male: nl scrotum Musculoskeletal: nl extremities to inspection, nl gait and stance, No joint tenderness Extremities: normal pulses, No calf tenderness, No cyanosis Neurological: nl mental status, nl speech, nl strength Skin: nl turgor, jaundice No diaphoresis, No rash or lesions Lymph: No nl lymph nodes (Inguinal) Results Result Diagram: 07/02/16 0640 07/02/16 0640 DIAMOND FITZGERALD MD Jul 02, 2016 19:00
--- NOTE | 2016-07-02 19:01 | PN ---
Date/Time of Note Date/Time of Note DATE: 07/02/16 TIME: 19:00 Assessment/Plan [facility] [place] [facility] No Assessment/Plan Chief Complaint/Hosp Course 1. Sepsis 2nd biliary obstruction -abx -ivf -supportive care -ERCP tomorrow. 2. Transaminitis with Hyperbilirubinemia ? 2nd biliary obstruction ? 2nd tumor vs stent vs stone vs other -as above 3. Metastatic Urothelial cancer with ? carcinomatosis -heme/onc for tx after sepsis resolution 4. Hx obstructed duodenum with gastric outlet obstruction s/p duodenal stent 5. Steatosis -Eventual nutrition and lifestyle optimization 6. Weight loss probably secondary to above -As above Thank you, Problems: Subjective 24 Hr Interval Summary ERCP tomorrow. No f/c. Min abdominal pain. No chest pain or shortness of breath. No cough. No seizure. No headache, visual, or neurologic changes. No dysuria. Exam/Review of Systems Vital Signs Vitals Vital Signs Date Time Temp Pulse Resp B/P Pulse Ox O2 Delivery O2 Flow Rate FiO2 07/02/16 16:04 66 07/02/16 15:17 98.3 16 141/71 96 07/01/16 09:36 Room Air 06/30/16 13:25 2 Intake and Output 07/01/16 07/01/16 07/02/16 15:00 23:00 07:00 Intake Total 350 ml 1600 ml Balance 350 ml 1600 ml Exam Free Text/Dictation Constitutional: alert, oriented, No distress Psych: nl mood/affect, No anxiety, No confusion Head: atraumatic, normocephalic Eyes: EOMI, PERRL, nl conjunctiva, icterus ENMT: mucosa pink and moist, nl external ears & nose, nl lips & teeth Neck: non-tender, supple, No jvd, No masses Respiratory: normal air movement, No congested cough, No labored breathing Cardiovascular: regular rate and rhythm, No edema Gastrointestinal: min-tender, soft, No distended, No rebound or guarding Genitourinary - Male: nl scrotum Musculoskeletal: nl extremities to inspection, nl gait and stance, No joint tenderness Extremities: normal pulses, No calf tenderness, No cyanosis Neurological: nl mental status, nl speech, nl strength Skin: nl turgor, jaundice No diaphoresis, No rash or lesions Lymph: No nl lymph nodes (Inguinal) Results Result Diagram: 07/02/16 0640 07/02/16 0640 DIAMOND FITZGERALD MD Jul 02, 2016 19:01
[2016-07-02] MEDS: VANCOMYCIN 1.5 GM in SOD CHLORIDE 0.9% 250 ML IVPB SCH (20:18)
--- NOTE | 2016-07-02 23:42 | CONS ---
DATE OF ADMISSION: 06/30/2016 DATE OF CONSULTATION: 06/30/2016 TYPE OF CONSULTATION: Surgical. REFERRING PRACTITIONER: Cayden Ruelas NP CHIEF COMPLAINT: 1. Urothelial cancer metastasis with possible carcinomatosis. 2. History of gastric outlet obstruction, status post stent by GI. 3. Sepsis with possible biliary or urinary. HISTORY OF PRESENT ILLNESS: Mr. Scot Paz is a 60-year-old male with multiple significant ritika rbidities who is known to me from recent hospitalization after he presented with gastric outlet obst ruction due to duodenal lesion, which eventually was found to be of urothelial origin with metastasi s in the abdomen. The patient had a stent placed by Dr. De, which relieved his obstruction and symptoms improved. However, he comes back with abdominal pain with some subjective fevers and chill s, but no nausea, vomiting. No chest pain, shortness of breath. No visual or neurologic changes. No dysuria. No cough. No seizure. No blood per mouth or rectum. His workup identified leukocytosis of 19,000 with lactic acid of 4. He was tachycardic with clinica l sepsis. The patient is admitted, placed on antibiotics. Imaging identified common bile duct dila tation at 11 mm with abnormal LFTs. Surgical consult was obtained for further evaluation and treatm ent. PAST MEDICAL HISTORY: 1. Metastatic urothelial cancer. 2. Gastric outlet obstruction secondary to cancer. 3. Steatosis. 4. Weight loss. 5. Leukocytosis. 6. Anemia. 7. Lactic acidosis. 8. Thrombocytopenia. 9. Hyperbilirubinemia. 10. Transaminitis. 11. Hypoalbuminemia. 12. Mild coagulopathy. PAST SURGICAL HISTORY: 1. Appendectomy. 2. EGD with a duodenal stent. MEDICATIONS: As per MAR. ALLERGIES: NONE. SOCIAL HISTORY: No alcohol, drugs, or tobacco. FAMILY HISTORY: Noncontributory. REVIEW OF SYSTEMS: A 12-point review of systems negative unless addressed in HPI. Weight loss. Sk in, urine, and eyeball color change. PHYSICAL EXAMINATION: VITAL SIGNS: Temperature 98.2, pulse 70, blood pressure 91/65, satting 97% on room air. GENERAL: No acute distress. HEENT: Pupils equal, reactive. Positive scleral icterus. NECK: Supple. No JVD. PULMONARY: Normal respiratory effort. No wheezing. CARDIAC: S1, S2 present. ABDOMEN: Soft. Minimally tender. No rebound, no guarding, not rigid. EXTREMITIES: No edema. VASCULAR: Capillary refill is 2 seconds. NEUROLOGIC: Alert, oriented, moves all 4 extremities grossly. SKIN: No rashes. Positive jaundice. LABORATORY DATA AND RADIOGRAPHIC DATA: As per chart and HPI. ASSESSMENT AND PLAN: Mr. Scot Paz is a 60-year-old male with multiple comorbidities. 1. Sepsis with possible biliary source versus urinary source. Continue antibiotics, IV fluids, sup portive care, and GI for possible ERCP. 2. Transaminitis with hyperbilirubinemia possibly secondary to biliary obstruction with possibly se condary to tumor versus stent versus stone versus other. Plan treatment as above. 3. Metastatic urothelial cancer with possible carcinomatosis. Hematology/oncology for treatment af ter sepsis resolution. 4. Recent history of obstructed duodenum with gastric outlet obstruction, status post duodenal sten t. 5. Steatosis. Continue nutrition and lifestyle optimization. 6. History of weight loss secondary to above. Continue treatment as above. Thank you very much for consulting me in this patient's care. Dictated By: DIAMOND FITZGERALD MD SK/NTS Conf#: [id number] DID#: [id number] CC: GAMALIEL HAIR MD;*EndCC*
[2016-07-03] VITALS (20 sets, daily range): BP systolic 110–136; BP diastolic 67–80; PULSE 64–88; RESP 16–22
[2016-07-03] MEDS: ONDANSETRON 4 MG INJ IV PRN (01:02)
[2016-07-03] MEDS: PANTOPRAZOLE 40 MG INJ IV SCH (06:14)
[2016-07-03] MEDS: PIPER-TAZO 3.375 GM IV (PMX) 100 ML IVPB SCH ×3 (06:14→21:18)
[2016-07-03] MEDS: NS + KCL 20 MEQ 1,000 ML IV SCH (06:48)
[2016-07-03 08:27] LABS: ADD SCAN DIFF NO
[2016-07-03 08:38] LABS: BASOPHILS % 0.2 % (0.0-2.0); EOSINOPHILS % 0.1 % (0.0-7.0); HEMATOCRIT 33.1 % (42.0-52.0); HEMOGLOBIN 11.3 g/dl (14.0-18.0); LYMPHOCYTES # 1.3 10^3/ul (0.8-2.9); MEAN CORPUSCULAR HEMOGLOBIN 29.9 pg (29.0-33.0); MEAN CORPUSCULAR HGB CONC 34.1 g/dl (32.0-37.0); MEAN CORPUSCULAR VOLUME 87.6 fl (82.0-101.0); MEAN PLATELET VOLUME 10.4 fl (7.4-10.4); MONOCYTE # 0.7 10^3/ul (0.3-0.9); MONOCYTES % 6.7 % (0.0-11.0); NEUTROPHIL # 8.5 10^3/ul (1.6-7.5); NEUTROPHILS % 77.7 % (39.0-77.0); PLATELET COUNT 170 10^3/UL (140-415); RED BLOOD COUNT 3.78 10^6/ul (4.70-6.10); RED CELL DISTRIBUTION WIDTH 15.1 % (11.5-14.5); WHITE BLOOD COUNT 10.9 10^3/ul (4.8-10.8)
[2016-07-03 08:39] LABS: ALBUMIN 2.4 g/dl (3.3-4.9); POTASSIUM 3.3 mmol/L (3.5-5.1)
[2016-07-03 08:41] LABS: CREATININE 0.44 mg/dl (0.61-1.24)
[2016-07-03 08:42] LABS: ALBUMIN/GLOBULIN RATIO 0.75; BILIRUBIN,INDIRECT 0.9 mg/dl (0-1.1); BILIRUBIN,TOTAL 3.9 mg/dl (0.2-1.3); TOTAL PROTEIN 5.6 g/dl (6.1-8.1)
[2016-07-03] MEDS: VANCOMYCIN 1.5 GM in SOD CHLORIDE 0.9% 250 ML IVPB SCH ×2 (08:51→20:22)
[2016-07-03] MEDS: HEPARIN 5,000 UNIT/0.5 ML VIAL SC SCH ×2 (09:13→21:24)
[2016-07-03] MEDS ORDERED: IOHEXOL 300MG/ML 30 ML BTL ONE (11:05)
--- NOTE | 2016-07-03 12:41 | PN ---
Date/Time of Note Date/Time of Note DATE: 07/03/16 TIME: 12:39 Assessment/Plan VTE Prophylaxis VTE Prophylaxis Intervention: heparin Lines/Catheters IV [facility] Peripheral IV Urinary Cath still in place: No Assessment/Plan Chief Complaint/Hosp Course Impression and plan 1. Sepsis. Patient with E. coli in the blood and Pseudomonas in the urine. Continue on antibiotics per ID recommendations. Consider possible Port-A-Cath DC should sepsis not improve. stable at present 2. carcinomatosis per abdominal imaging. Surgeon to follow. Continue with analgesics for now. Tolerating diet well 3. Suspect choledocholithiasis with CBD dilation per abdominal ultrasound imaging. Loading Unit Operator is following. ERCP today 4. Leukocytosis secondary to #1. Continue with antibiotics. Antipyretics for fever. Appears to be improved 5. Metastatic adenocarcinoma of uroepithelial origin. Patient last chemotherapy was noted 3 weeks prior to this admission. . Chemotherapy to follow once sepsis resolved GERD prophylaxis: PPI Disposition and plan:ERCP 07/03/16. will follow up results Discussed plan of care with Dr. Huang Problems: Subjective 24 Hr Interval Summary Free Text/Dictation patient for ERCP Exam/Review of Systems Vital Signs Vitals Vital Signs Date Time Temp Pulse Resp B/P Pulse Ox O2 Delivery O2 Flow Rate FiO2 07/03/16 12:17 77 07/03/16 11:31 98.7 16 126/78 97 07/01/16 09:36 Room Air 06/30/16 13:25 2 Intake and Output 07/02/16 07/02/16 07/03/16 15:00 23:00 07:00 Intake Total 250 ml 1050 ml 650 ml Balance 250 ml 1050 ml 650 ml Exam patient for ERCP Results Result Diagram: 07/03/16 0810 07/03/16 0810 Results 24 hrs Laboratory Tests Test 07/03/16 08:10 White Blood Count 10.9 #H Red Blood Count 3.78 L Hemoglobin 11.3 L Hematocrit 33.1 L Mean Corpuscular Volume 87.6 Mean Corpuscular Hemoglobin 29.9 Mean Corpuscular Hemoglobin Concent 34.1 Red Cell Distribution Width 15.1 H Platelet Count 170 Mean Platelet Volume 10.4 Neutrophils % 77.7 H Lymphocytes % 12.0 L Monocytes % 6.7 Eosinophils % 0.1 Basophils % 0.2 Nucleated Red Blood Cells % 0.0 Neutrophils # 8.5 H Lymphocytes # 1.3 Monocytes # 0.7 Eosinophils # 0.0 Basophils # 0.0 Nucleated Red Blood Cells # 0.0 Sodium Level 132 L Potassium Level 3.3 L Chloride Level 100 Carbon Dioxide Level 23 Anion Gap 12 Blood Urea Nitrogen 9 Creatinine 0.44 L Glucose Level 114 Calcium Level 8.0 L Total Bilirubin 3.9 H Direct Bilirubin 3.00 H Indirect Bilirubin 0.9 Aspartate Amino Transf (AST/SGOT) 62 H Alanine Aminotransferase (ALT/SGPT) 72 H Alkaline Phosphatase 345 H Total Protein 5.6 L Albumin 2.4 L Globulin 3.20 Albumin/Globulin Ratio 0.75 Medications Medications Current Medications Potassium Chloride/Sodium Chloride (NS-KCl 20 Meq) 1,000 ml @ 80 mls/hr [id number] IV Last administered on 07/02/16 17:47; Admin Dose 80 MLS/HR; Start at 16:18 Ondansetron HCl (Zofran Inj) 4 mg Q6H PRN IV NAUSEA AND/OR VOMITING Last administered on 07/03/16 01:02; Admin Dose 4 MG; Start 06/30/16 at 16:30 Acetaminophen (Tylenol Tab) 650 mg Q6H PRN PO PAIN LEVEL 1-3 OR FEVER; Start at 16:30 Acetaminophen (Tylenol Supp) 650 mg Q6H PRN [place] PAIN LEVEL 1-3 OR FEVER; Start 06/30/16 at 16:30 Acetaminophen/ Hydrocodone Bitart ([place] (5/325)) 1 tab Q6H PRN PO MODERATE PAIN LEVEL 4-6; Start 06/30/16 at 16:30 Acetaminophen/ Hydrocodone Bitart ([place] (5/325)) 2 tab Q6H PRN PO SEVERE PAIN LEVEL 7-10; Start 06/30/16 at 16:30 Morphine Sulfate (morphine) 2 mg Q4H PRN IV SEVERE PAIN LEVEL 7-10; Start 06/30 at 16:30 Docusate Sodium (Colace) 100 mg Q12H PRN PO CONSTIPATION; Start 06/30/16 at 16: 30 Magnesium Hydroxide (Milk Of Mag) 30 ml DAILY PRN PO CONSTIPATION; Start at 16:30 Bisacodyl (Dulcolax Supp) 10 mg DAILY PRN [place] CONSTIPATION; Start 06/30/16 at 16 :30 Pantoprazole (Protonix Iv) 40 mg DAILY@06 IV Last administered on 07/03/16 06: 14; Admin Dose 40 MG; Start 07/01/16 at 06:00 Heparin Sodium (Porcine) 5000 unit 5,000 unit Q12 SC Last administered on 09:13; Admin Dose 5,000 UNIT; Start 06/30/16 at 21:00 Piperacillin Sod/ Tazobactam Sod 100 ml @ 200 mls/hr Q8 IVPB Last administered on 07/03/16 06:14; Admin Dose 200 MLS/HR; Start 06/30/16 at 22:30 Vancomycin HCl/ Sodium Chloride (Vancocin/NS) 250 ml @ 83.333 mls/ hr Q12H IVPB Last administered on 07/03/16 08:51; Admin Dose 83.333 MLS/HR; Start at 20:00 SHANTELLE TILLEY Jul 03, 2016 12:41
[2016-07-03] MEDS ORDERED: INDOMETHACIN 50 MG SUPP PR ONE (13:00)
--- NOTE | 2016-07-03 15:44 | GILP ---
DATE OF PROCEDURE: INDICATION: A 60-year-old male undergoing this procedure for biliary obstruction. He has a duodena l tumor, status post duodenal stent. DESCRIPTION OF PROCEDURE: The patient was brought to the OR room #4, intubated, and placed in a pro ne position. He was given antibiotic prior to the procedure. Indocin suppository was administered. ERCP scope passed with much ease into esophagus and into the stomach. The patient had a large joy ntity of food. Bypassed that food and went into the second part. Ampulla was identified, but it wa s only by the long route of the stent and the tumor growth was preventing the short route. The whol e stomach and the duodenum was fixed with the long route tried to cannulate, but the sphincterotome was well engaged, but deeper cannulation was not possible, most probably due to the tumor, so I deci ded not to proceed with it. Scope was removed with good patient tolerance. IMPRESSION: 1. Large quantity of food in the fundal area. 2. Tumor preventing the scope to be straightened out. 3. Ampulla, after engagement of the sphincterotome, the deeper cannulation was not possible because of the tumor probably invading the stent, proximal margin of the tumor growth was very close to the ampulla. PLAN: At this point, is to do a PTC ____. Dictated By: TIANNA WILSON/ANN MARIE Conf#: [id number] DID#: [id number] CC: TIANNA SALINAS MD; GAMALIEL HIAR MD;*[facility]*
[2016-07-03] MEDS: METOCLOPRAMIDE 10 MG INJ IV SCH (17:50)
--- NOTE | 2016-07-03 19:10 | CONS ---
Date/Time of Note Date/Time of Note DATE: 07/03/16 TIME: 19:07 Assessment/Plan Assessment/Plan Chief Complaint/Hosp Course ID PROGRESS NOTE TOTAL ABX DAY #4 => Vanco IV #4 + Zosyn #4 URINE CULTURE Preliminary Organism 1 PSEUDOMONAS SPECIES COLONY COUNT <10,000 CFU/ml 24H INTERVAL SUMMARY * Awake, alert, oriented, calm, VSS, NAD -- spouse in room, [place] speaking, advised patient possible infection of port -- waiting for "Dilip" cultures obtained from port. 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 No evidence of gallbladder wall thickening or pericholecystic fluid. * Dilated CBD measuring 11 mm. * Mild fatty infiltration of the liver. PHYSICAL EXAMINATION: GENERAL: VSS, NADm, no fevers HEENT: Unremarkable, NECK: Supple CHEST: Equal chest rise bilaterally, without dyspnea on observation HEART: Pulse RRR ABDOMEN: Soft, nontender EXTREMITIES: Warm,moves all extremities SKIN: Warm, dry ID ASSESSMENT: 60 yo M admitted with: 1. 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 Sepsis on admission with transient hypotension, lactic acidosis 4.0 tachycardia, leukocytosis => DDx UTI vs Bilary sepsis 3. (+)GNR bacteremia = E.Coli => Biliary source vs Port-A-Cath 3. UTI ->PSAR 4. Biliary obstruction -> GI following INVASIVES: *PIV, duodenal stent , Port-A-Cath ABX ALLERGIES: KNDA CURRENT ABX: DAY #4 => Vanco IV #4 + Zosyn #4 ID RECOMMENDATIONS: 1. Repeat BCx x1 via Port-A-Cath (-)preliminary -- There is no clear answer if GNR source is biliary vs Port-A-Cath * BCx(+)GNR from unknown source -> DDx Biliary Sepsis vs Port-A-Cath, Urine grew low colony PSAR cannot confirm urinary source * Dr. Irwin recommending DC Port-A-Cath since Chemo on hold anyway, place alternative PIV and treat w/ABX x 48 HRs prior to replacing new line for Chemo ? PICC 2. Continue current ABX REQUIRES at least 14 days ABX for (+)Blood Cx 3. Await final micro repeat BCx from Port-A-Cath -- Chemo on hold . . Problems: Consultation Date/Type/Reason Admit Date/Time Jun 30, 2016 at 15:42 Initial Consult Date 06/30/16 Type of Consultation: ID Exam/Review of Systems Vital Signs Vitals Vital Signs Date Time Temp Pulse Resp B/P Pulse Ox O2 Delivery O2 Flow Rate FiO2 07/03/16 16:12 64 07/03/16 15:24 98.2 18 119/75 97 07/03/16 14:25 Room Air 10.0 Intake and Output 07/02/16 07/02/16 07/03/16 15:00 23:00 07:00 Intake Total 250 ml 1050 ml 650 ml Balance 250 ml 1050 ml 650 ml Results Result Diagram: 07/03/16 0810 07/03/16 0810 Results 24 hrs Laboratory Tests Test 07/03/16 08:10 White Blood Count 10.9 #H Red Blood Count 3.78 L Hemoglobin 11.3 L Hematocrit 33.1 L Mean Corpuscular Volume 87.6 Mean Corpuscular Hemoglobin 29.9 Mean Corpuscular Hemoglobin Concent 34.1 Red Cell Distribution Width 15.1 H Platelet Count 170 Mean Platelet Volume 10.4 Neutrophils % 77.7 H Lymphocytes % 12.0 L Monocytes % 6.7 Eosinophils % 0.1 Basophils % 0.2 Nucleated Red Blood Cells % 0.0 Neutrophils # 8.5 H Lymphocytes # 1.3 Monocytes # 0.7 Eosinophils # 0.0 Basophils # 0.0 Nucleated Red Blood Cells # 0.0 Sodium Level 132 L Potassium Level 3.3 L Chloride Level 100 Carbon Dioxide Level 23 Anion Gap 12 Blood Urea Nitrogen 9 Creatinine 0.44 L Glucose Level 114 Calcium Level 8.0 L Total Bilirubin 3.9 H Direct Bilirubin 3.00 H Indirect Bilirubin 0.9 Aspartate Amino Transf (AST/SGOT) 62 H Alanine Aminotransferase (ALT/SGPT) 72 H Alkaline Phosphatase 345 H Total Protein 5.6 L Albumin 2.4 L Globulin 3.20 Albumin/Globulin Ratio 0.75 Medications Medications Current Medications Potassium Chloride/Sodium Chloride (NS-KCl 20 Meq) 1,000 ml @ 80 mls/hr [id number] IV Last administered on 07/02/16 17:47; Admin Dose 80 MLS/HR; Start at 16:18 Ondansetron HCl (Zofran Inj) 4 mg Q6H PRN IV NAUSEA AND/OR VOMITING Last administered on 07/03/16 01:02; Admin Dose 4 MG; Start 06/30/16 at 16:30 Acetaminophen (Tylenol Tab) 650 mg Q6H PRN PO PAIN LEVEL 1-3 OR FEVER; Start at 16:30 Acetaminophen (Tylenol Supp) 650 mg Q6H PRN [place] PAIN LEVEL 1-3 OR FEVER; Start 06/30/16 at 16:30 Acetaminophen/ Hydrocodone Bitart ([place] (5/325)) 1 tab Q6H PRN PO MODERATE PAIN LEVEL 4-6; Start 06/30/16 at 16:30 Acetaminophen/ Hydrocodone Bitart ([place] (5/325)) 2 tab Q6H PRN PO SEVERE PAIN LEVEL 7-10; Start 06/30/16 at 16:30 Morphine Sulfate (morphine) 2 mg Q4H PRN IV SEVERE PAIN LEVEL 7-10; Start 06/30 at 16:30 Docusate Sodium (Colace) 100 mg Q12H PRN PO CONSTIPATION; Start 06/30/16 at 16: 30 Magnesium Hydroxide (Milk Of Mag) 30 ml DAILY PRN PO CONSTIPATION; Start at 16:30 Bisacodyl (Dulcolax Supp) 10 mg DAILY PRN [place] CONSTIPATION; Start 06/30/16 at 16 :30 Pantoprazole (Protonix Iv) 40 mg DAILY@06 IV Last administered on 07/03/16 06: 14; Admin Dose 40 MG; Start 07/01/16 at 06:00 Heparin Sodium (Porcine) 5000 unit 5,000 unit Q12 SC Last administered on 09:13; Admin Dose 5,000 UNIT; Start 06/30/16 at 21:00 Piperacillin Sod/ Tazobactam Sod 100 ml @ 200 mls/hr Q8 IVPB Last administered on 07/03/16 17:50; Admin Dose 200 MLS/HR; Start 06/30/16 at 22:30 Vancomycin HCl/ Sodium Chloride (Vancocin/NS) 250 ml @ 83.333 mls/ hr Q12H IVPB Last administered on 07/03/16 08:51; Admin Dose 83.333 MLS/HR; Start at 20:00 Miscellaneous Information (*Rx Drug Level Order Reminder*) VANCOMYCIN TROUGH 07/04 AT 0700 ONCE ONCE XX ; Start 07/04/16 at 07:00; Stop 07/04/16 at 07:01 Metoclopramide HCl (Reglan) 10 mg Q6 IV Last administered on 07/03/16 17:50; Admin Dose 10 MG; Start 07/03/16 at 18:00 ALEXANDER LEON NP Jul 03, 2016 19:10
[2016-07-04] VITALS (12 sets, daily range): BP systolic 108–131; BP diastolic 62–74; PULSE 64–96; RESP 16–20
[2016-07-04] MEDS: METOCLOPRAMIDE 10 MG INJ IV SCH ×5 (00:25→23:16)
[2016-07-04] MEDS: PIPER-TAZO 3.375 GM IV (PMX) 100 ML IVPB SCH ×3 (06:19→21:33)
[2016-07-04] MEDS: NS + KCL 20 MEQ 1,000 ML IV SCH ×3 (06:20→21:33)
[2016-07-04] MEDS: PANTOPRAZOLE 40 MG INJ IV SCH (06:26)
--- NOTE | 2016-07-04 09:06 | RADRPT ---
PROCEDURE: Intraoperative imaging for ERCP with fluoroscopy. CLINICAL INDICATION: Duodenal stricture. Intraoperative. TECHNIQUE: A single image of the right upper quadrant of the abdomen was obtained in the operating room with an image intensifier. No radiologist was in attendance. 3.5 seconds of fluoroscopy time was used. COMPARISON: CT scan of the abdomen and pelvis dated 06/30/2016 which demonstrated a duodenal stent . FINDINGS: Images demonstrate the endoscope in position with the tip of the endoscope adjacent to the duodenal stent. IMPRESSION: 1. ERCP as described above. RPTAT: QQ .Naldo Oneal MD, Date Time Electronically viewed and signed by .Naldo Oneal MD, on 07/04/2016 09:06 .R/
[2016-07-04] MEDS: VANCOMYCIN 1.5 GM in SOD CHLORIDE 0.9% 250 ML IVPB SCH (09:09)
[2016-07-04] MEDS: HEPARIN 5,000 UNIT/0.5 ML VIAL SC SCH (09:12)
[2016-07-04 09:21] LABS: ADD SCAN DIFF NO
[2016-07-04 09:25] LABS: BASOPHILS % 0.3 % (0.0-2.0); EOSINOPHILS % 0.4 % (0.0-7.0); HEMATOCRIT 33.7 % (42.0-52.0); HEMOGLOBIN 11.3 g/dl (14.0-18.0); LYMPHOCYTES # 1.4 10^3/ul (0.8-2.9); LYMPHOCYTES % 14.1 % (15.0-51.0); MEAN CORPUSCULAR HEMOGLOBIN 30.2 pg (29.0-33.0); MEAN CORPUSCULAR HGB CONC 33.5 g/dl (32.0-37.0); MEAN CORPUSCULAR VOLUME 90.1 fl (82.0-101.0); MEAN PLATELET VOLUME 10.7 fl (7.4-10.4); MONOCYTE # 0.7 10^3/ul (0.3-0.9); MONOCYTES % 7.3 % (0.0-11.0); NEUTROPHIL # 7.4 10^3/ul (1.6-7.5); NEUTROPHILS % 74.3 % (39.0-77.0); PLATELET COUNT 203 10^3/UL (140-415); RED BLOOD COUNT 3.74 10^6/ul (4.70-6.10); RED CELL DISTRIBUTION WIDTH 15.8 % (11.5-14.5); WHITE BLOOD COUNT 9.9 10^3/ul (4.8-10.8)
[2016-07-04 09:37] LABS: ALBUMIN 2.2 g/dl (3.3-4.9); POTASSIUM 3.5 mmol/L (3.5-5.1)
[2016-07-04 09:40] LABS: ALBUMIN/GLOBULIN RATIO 0.81; BILIRUBIN,DIRECT 3.3 mg/dl (0.00-0.20); BILIRUBIN,TOTAL 4.3 mg/dl (0.2-1.3); CALCIUM 7.9 mg/dl (8.4-10.2); CREATININE 0.53 mg/dl (0.61-1.24); TOTAL PROTEIN 4.9 g/dl (6.1-8.1)
--- NOTE | 2016-07-04 11:32 | PN ---
Date/Time of Note Date/Time of Note DATE: 07/03/16 TIME: 11:30 Assessment/Plan Lines/Catheters IV Catheter Type (from [facility]): Peripheral IV Langle[place] in Place (from [facility]): No Assessment/Plan Chief Complaint/Hosp Course 1. Sepsis 2nd biliary obstruction s/p attempted unsuccessful ERCP 07/03 -abx -ivf -supportive care -PTC per IR 2. Transaminitis with Hyperbilirubinemia ? 2nd biliary obstruction ? 2nd tumor vs stent vs stone vs other -as above 3. Metastatic Urothelial cancer with ? carcinomatosis -heme/onc for tx after sepsis resolution 4. Hx obstructed duodenum with gastric outlet obstruction s/p duodenal stent 5. Steatosis -Eventual nutrition and lifestyle optimization 6. Weight loss probably secondary to above -As above Thank you, Late entry 07/03 Problems: Subjective 24 Hr Interval Summary s/p Attempted ERCP 07/03. No f/c. Min abdominal pain. No chest pain or shortness of breath. No cough. No seizure. No headache, visual, or neurologic changes. No dysuria. Exam/Review of Systems Vital Signs Vitals Vital Signs Date Time Temp Pulse Resp B/P Pulse Ox O2 Delivery O2 Flow Rate FiO2 07/04/16 08:08 69 07/04/16 07:17 98.4 20 108/62 96 07/03/16 14:25 Room Air 10.0 Intake and Output 07/03/16 07/03/16 07/04/16 15:00 23:00 07:00 Intake Total 100 ml 100 ml 1250 ml Balance 100 ml 100 ml 1250 ml Exam Free Text/Dictation Constitutional: alert, oriented, No distress Psych: nl mood/affect, No anxiety, No confusion Head: atraumatic, normocephalic Eyes: EOMI, PERRL, nl conjunctiva, icterus ENMT: mucosa pink and moist, nl external ears & nose, nl lips & teeth Neck: non-tender, supple, No jvd, No masses Respiratory: normal air movement, No congested cough, No labored breathing Cardiovascular: regular rate and rhythm, No edema Gastrointestinal: min-tender, soft, No distended, No rebound or guarding Genitourinary - Male: nl scrotum Musculoskeletal: nl extremities to inspection, nl gait and stance, No joint tenderness Extremities: normal pulses, No calf tenderness, No cyanosis Neurological: nl mental status, nl speech, nl strength Skin: nl turgor, jaundice No diaphoresis, No rash or lesions Lymph: No nl lymph nodes (Inguinal) Results Result Diagram: 07/04/16 0651 07/04/16 0651 DIAMOND FITZGERALD MD July 04, 2016 11:32
--- NOTE | 2016-07-04 11:32 | PN ---
Date/Time of Note Date/Time of Note DATE: 07/04/16 TIME: 11:32 Assessment/Plan Lines/Catheters IV Catheter Type (from [facility]): Peripheral IV Langle[place] in Place (from [facility]): No Assessment/Plan Chief Complaint/Hosp Course 1. Sepsis 2nd biliary obstruction s/p attempted unsuccessful ERCP 07/03 -abx -ivf -supportive care -PTC per IR 2. Transaminitis with Hyperbilirubinemia ? 2nd biliary obstruction ? 2nd tumor vs stent vs stone vs other -as above 3. Metastatic Urothelial cancer with ? carcinomatosis -heme/onc for tx after sepsis resolution 4. Hx obstructed duodenum with gastric outlet obstruction s/p duodenal stent 5. Steatosis -Eventual nutrition and lifestyle optimization 6. Weight loss probably secondary to above -As above Thank you, Late entry 07/03 Problems: Subjective 24 Hr Interval Summary s/p Attempted ERCP 07/03. No f/c. Min abdominal pain. No chest pain or shortness of breath. No cough. No seizure. No headache, visual, or neurologic changes. No dysuria. WBC normalized but LFTs persist. Exam/Review of Systems Vital Signs Vitals Vital Signs Date Time Temp Pulse Resp B/P Pulse Ox O2 Delivery O2 Flow Rate FiO2 07/04/16 08:08 69 07/04/16 07:17 98.4 20 108/62 96 07/03/16 14:25 Room Air 10.0 Intake and Output 07/03/16 07/03/16 07/04/16 15:00 23:00 07:00 Intake Total 100 ml 100 ml 1250 ml Balance 100 ml 100 ml 1250 ml Exam Free Text/Dictation Constitutional: alert, oriented, No distress Psych: nl mood/affect, No anxiety, No confusion Head: atraumatic, normocephalic Eyes: EOMI, PERRL, nl conjunctiva, icterus ENMT: mucosa pink and moist, nl external ears & nose, nl lips & teeth Neck: non-tender, supple, No jvd, No masses Respiratory: normal air movement, No congested cough, No labored breathing Cardiovascular: regular rate and rhythm, No edema Gastrointestinal: min-tender, soft, No distended, No rebound or guarding Genitourinary - Male: nl scrotum Musculoskeletal: nl extremities to inspection, nl gait and stance, No joint tenderness Extremities: normal pulses, No calf tenderness, No cyanosis Neurological: nl mental status, nl speech, nl strength Skin: nl turgor, jaundice No diaphoresis, No rash or lesions Lymph: No nl lymph nodes (Inguinal) Results Result Diagram: 07/04/16 0651 07/04/16 0651 DIAMOND FITZGERALD MD July 04, 2016 11:32
--- NOTE | 2016-07-04 13:05 | PN ---
DATE: 07/04/2016 SUBJECTIVE DATA: Denies any abdominal pain. OBJECTIVE DATA: VITAL SIGNS: Temperature 98.4, pulse rate 79, respiratory rate 20, blood pressure 112/64, oxygen saturation 98% on room air. GENERAL: This is well-built, well-nourished male patient sitting in a chair in no apparent distress. HEENT: Head normocephalic and atraumatic. Eyes: Anicteric sclerae. Conjunctivae clear. ENT: Nasal septum is midline. Oral mucosa is dry. NECK: Supple. No JVD noticed. RESPIRATORY: Bilaterally clear to auscultation. No adventitious breath sounds. No use of accessory muscles of respiration. CARDIAC: Regular rate and rhythm. S1, S2 heard. ABDOMEN: Soft, nontender and nondistended. Bowel sounds positive in all 4 quadrants. GENITOURINARY: Deferred. EXTREMITIES: No cyanosis, no clubbing. Right upper extremity edema. Peripheral pulses palpable. NEUROLOGIC: The patient is awake, alert and oriented. Cranial nerves are grossly intact. LABORATORY AND DIAGNOSTIC DATA: WBC 9.9, hemoglobin 11.3, hematocrit 33.7, platelet count 203. Sodium 136, potassium 3.5, chloride 104, carbon dioxide 22 , anion gap 14, BUN 13, creatinine 0.56, glucose 102, calcium 7.9, total bilirubin of 4.3, direct bilirubin 3.3, AST 81, ALT 76, alkaline phosphatase 325. ASSESSMENT AND PLAN: 1. Sepsis with underlying Escherichia coli bacteremia. Continue antibiotics as per Infectious Disease. Plan for replacement of Port-A-Cath because this is suspected to be the cause of infection. 2. History of metastatic urothelial cancer with current evidence of neoplasm involved of the cecum, ascending colon and hepatic flexure with extension of tumor to the serosa involving the lateral wall of the duodenum. Findings suspicious for carcinomatosis. The patient being followed by oncology. 3. Gastric outlet obstruction. Status post duodenal stent placement in the past. The patient underwent a second esophagogastroduodenoscopy for further evaluation of the gastric obstruction; however, the salvage winder and inspector was unable to advance scope because the tumor was blocking the advancement. 4. Transaminitis with hyperbilirubinemia, most probably secondary to underlying outlet obstruction. Gastroenterology following. 5. Normocytic, normochromic anemia, most probably anemia of chronic disease. We will monitor the H and H closely. We will transfuse as needed. 6. Fluid, electrolytes and nutrition. Currently, n.p.o. as per gastroenterology. 7. Deep venous thrombosis prophylaxis. Bilateral sequential compression devices. 8. Gastrointestinal prophylaxis. Proton pump inhibitors. 9. Plan. Continue current management. Await further recommendations from consultants. The case was discussed with Dr. Aleman. JEWEL ALEMAN MD, AM/ANN MARIE Conf#: [id number] DID#: [id number] MTDD
--- NOTE | 2016-07-04 13:24 | CONS ---
Date/Time of Note Date/Time of Note DATE: 07/04/16 TIME: 13:00 Assessment/Plan Assessment/Plan Chief Complaint/Hosp Course 60 year old male with metastatic urothelial cancer who had presented during the last admission with gastric outlet obstruction status post duodenal stent with duodenal, periduodenal LAD, bladder mass, initially thought GI primary and FOLFOX given 06/04/16 based on prelim path and severe obstructive symptoms, however further path review showed primary. Patient now readmitted with sepsis with abdominal pain. # metastatic urothelial cancer - CT A/P demonstrates infiltrative neoplasm involving the cecum, ascending colon and hepatic flexure with extension of tumor to the serosa involving the lateral wall of the duodenum. This has advanced as compared to 05/27/2016. Findings suspicious for carcinomatosis. - Dr Mercado had planned to start gemcitabine 1000 mg/m2 D1, 8 and carboplatin AUC 4.5 D1 however will have to hold off for now until sepsis resolves and bacteremia has been cleared and adequately treated with at least 14 days of antibiotics for bacteremia. # GNR bacteremia - the source is not clear but could be coming from PICC line or duodenal stent - Patient now on vanc/zosyn with GNR bacteremia. -will hold on removing the port for now. if ID feels it is necessary to remove and if bacteremia does not clear, will remove at that time # Biliary obstruction -per GI, patient Bili is stable. if it continues to rise, may have to consider placing a percutaneous biliary drain # Diabetic Gastroparesis -cont reglan Approximately 40 min were spent at patient's bedside and in coordination of his care Problems: (1) Urothelial carcinoma Status: Acute (2) Carcinomatosis Status: Acute (3) Severe sepsis Status: Acute Consultation Date/Type/Reason Admit Date/Time Jun 30, 2016 at 15:42 Initial Consult Date 06/30/16 Type of Consultation: hematology Reason for Consultation metastatic bladder cancer Referring Provider: GAMALIEL HAIR MD 24 HR Interval Summary Free Text/Dictation pt had an ERCP done that revealed tumor invading into the duodenal stent, and proximal margin of the tumor growth was very close to the ampulla. pt is ambulating. not clinically obstructed Exam/Review of Systems Vital Signs Vitals Vital Signs Date Time Temp Pulse Resp B/P Pulse Ox O2 Delivery O2 Flow Rate FiO2 07/04/16 12:11 79 07/04/16 11:36 98.4 20 112/64 98 07/03/16 14:25 Room Air 10.0 Intake and Output 07/03/16 07/03/16 07/04/16 14:59 22:59 06:59 Intake Total 100 ml 100 ml 1250 ml Balance 100 ml 100 ml 1250 ml Exam Constitutional: alert, frail, oriented Psych: nl mood/affect, no complaints Head: normocephalic Eyes: nl conjunctiva ENMT: nl external ears & nose, nl lips & teeth Neck: non-tender Cardiovascular: regular rate and rhythm Gastrointestinal: soft Musculoskeletal: nl extremities to inspection, nl gait and stance Results Result Diagram: 07/04/16 0651 07/04/16 0651 Results 24 hrs Laboratory Tests Test 07/04/16 06:50 07/04/16 06:51 Vancomycin Level Trough 12.6 White Blood Count 9.9 Red Blood Count 3.74 L Hemoglobin 11.3 L Hematocrit 33.7 L Mean Corpuscular Volume 90.1 Mean Corpuscular Hemoglobin 30.2 Mean Corpuscular Hemoglobin Concent 33.5 Red Cell Distribution Width 15.8 H Platelet Count 203 Mean Platelet Volume 10.7 H Neutrophils % 74.3 Lymphocytes % 14.1 L Monocytes % 7.3 Eosinophils % 0.4 Basophils % 0.3 Nucleated Red Blood Cells % 0.0 Neutrophils # 7.4 Lymphocytes # 1.4 Monocytes # 0.7 Eosinophils # 0.0 Basophils # 0.0 Nucleated Red Blood Cells # 0.0 Sodium Level 136 Potassium Level 3.5 Chloride Level 104 Carbon Dioxide Level 22 Anion Gap 14 Blood Urea Nitrogen 13 Creatinine 0.53 L Glucose Level 102 Calcium Level 7.9 L Total Bilirubin 4.3 H Direct Bilirubin 3.30 H Indirect Bilirubin 1.0 Aspartate Amino Transf (AST/SGOT) 81 H Alanine Aminotransferase (ALT/SGPT) 76 H Alkaline Phosphatase 325 H Total Protein 4.9 L Albumin 2.2 L Globulin 2.70 Albumin/Globulin Ratio 0.81 Medications Medications Current Medications Potassium Chloride/Sodium Chloride (NS-KCl 20 Meq) 1,000 ml @ 80 mls/hr [id number] IV Last administered on 07/04/16t 06:20; Admin Dose 80 MLS/HR; Start at 16:18 Ondansetron HCl (Zofran Inj) 4 mg Q6H PRN IV NAUSEA AND/OR VOMITING Last administered on 07/03/16 01:02; Admin Dose 4 MG; Start 06/30/16 at 16:30 Acetaminophen (Tylenol Tab) 650 mg Q6H PRN PO PAIN LEVEL 1-3 OR FEVER; Start at 16:30 Acetaminophen (Tylenol Supp) 650 mg Q6H PRN [place] PAIN LEVEL 1-3 OR FEVER; Start 06/30/16 at 16:30 Acetaminophen/ Hydrocodone Bitart ([place] (5/325)) 1 tab Q6H PRN PO MODERATE PAIN LEVEL 4-6; Start 06/30/16 at 16:30 Acetaminophen/ Hydrocodone Bitart ([place] (5/325)) 2 tab Q6H PRN PO SEVERE PAIN LEVEL 7-10; Start 06/30/16 at 16:30 Morphine Sulfate (morphine) 2 mg Q4H PRN IV SEVERE PAIN LEVEL 7-10; Start 06/30 at 16:30 Docusate Sodium (Colace) 100 mg Q12H PRN PO CONSTIPATION; Start 06/30/16 at 16: 30 Magnesium Hydroxide (Milk Of Mag) 30 ml DAILY PRN PO CONSTIPATION; Start at 16:30 Bisacodyl (Dulcolax Supp) 10 mg DAILY PRN [place] CONSTIPATION; Start 06/30/16 at 16 :30 Pantoprazole (Protonix Iv) 40 mg DAILY@06 IV Last administered on 07/04/16 06: 26; Admin Dose 40 MG; Start 07/01/16 at 06:00 Heparin Sodium (Porcine) 5000 unit 5,000 unit Q12 SC Last administered on 09:12; Admin Dose 5,000 UNIT; Start 06/30/16 at 21:00 Piperacillin Sod/ Tazobactam Sod (Zosyn 3.375gm/ 100 ml (Pmx)) 100 ml @ 200 mls /hr Q8 IVPB Last administered on 07/04/16 06:19; Admin Dose 200 MLS/HR; Start 06/30/16 at 22:30 Metoclopramide HCl (Reglan) 10 mg Q6 IV Last administered on 07/04/16 12:30; Admin Dose 10 MG; Start 07/03/16 at 18:00 LETY HUNTER M.D. July 04, 2016 13:22
[2016-07-04 15:05] LABS: IRON 33 ug/dl (35-150)
[2016-07-04 15:16] LABS: TOTAL IRON BINDING CAPACITY 192 ug/dl (241-421)
--- NOTE | 2016-07-04 15:44 | PN ---
DATE: 07/04/2016 SUBJECTIVE: Infectious disease progress note. No acute changes. No fevers. The patient is alert, sitting comfortably in bed. No nausea, vomiting, diarrhea. LABORATORY DATA: WBC 9.9, platelets 203, no shift, no bands. BUN 13, creatinine 0.53. MICROBIOLOGY: Blood culture on admission grew E. coli. Urine culture grew Pseudomonas aeruginosa. Repeat blood culture the next day was negative. DIAGNOSTICS: CT of the abdomen and pelvis revealed right and left lower lobe atelectasis, dilated e xtrahepatic common bile duct, duodenal stent with thickening of the duodenal mucosa, free fluid in t he pelvis. Infiltrative neoplasm involving the cecum, ascending colon, and hepatic flexure with ext ension of tumor to the serosa involving the lateral fold of the duodenum. Findings suspicious for c arcinomatosis and ascitic fluid noted in the right pericolic gutter and lower ventral pelvis. ANTIMICROBIALS: Patient is on Vancomycin and Zosyn. INDWELLINGS:: Right chest Port-A-Cath. PHYSICAL EXAMINATION: GENERAL: This is a well-developed, elderly man who is alert, in no distress. HEENT: Head atraumatic, normocephalic. Sclerae anicteric. Buccal mucosa dry. NECK: Supple, trachea midline. CHEST: Rise symmetrical. Breath sounds clear. HEART: S1, S2. ABDOMEN: Soft, bowel tones present. EXTREMITIES: Without cyanosis. ASSESSMENT: 1. Escherichia coli bacteremia, likely biliary source secondary to biliary obstruction, status post unsuccessful endoscopic retrograde cholangiopancreatography. 3. Metastatic urothelial cancer with questionable carcinomatosis. 4. History of gastric outlet obstructions status post duodenal stent placement. 6. Ascites. 7. Pseudomonas aeruginosa urinary tract infection. PLAN: The patient remains stable. Per discussion with Dr. Debbie Flores, we will keep Port-A-Cath i n place given the fact that patient is asymptomatic, no fevers and there was a high possibility that he has a biliary sepsis. We will discontinue vancomycin, continue Zosyn for now. Follow surgical and gastroenterology recommendations. Dictated By: MARIELA ROBIN RUBBER TUBING SPLICER for PENNY JOSEPH MD NI/NTS Conf#: [id number] DID#: [id number]
--- NOTE | 2016-07-04 17:24 | RADRPT ---
PROCEDURE: US right upper extremity veins. CLINICAL INDICATION: Right arm pain and swelling. TECHNIQUE: Multiple longitudinal and transverse images of the right upper extremity venous tree wa s obtained with dumont scale, pulsed Doppler, and color Doppler imaging. COMPARISON: None available FINDINGS: The right internal jugular, subclavian, axillary, brachial, basilic, cephalic, radial, and ulnar vei ns are patent. There is normal flow with augmentation and compressibility throughout. There is no t hrombus or occlusion. IMPRESSION: 1. Normal venous system of the right upper extremity. No evidence of thrombus or occlusion. RPTAT: QQ .Naldo Oneal MD, MD Date Time Electronically viewed and signed by .Naldo Oneal MD, MD on 07/04/2016 17:24 .R/
--- NOTE | 2016-07-04 18:17 | CONS ---
Date/Time of Note Date/Time of Note DATE: 07/04/16 TIME: 18:16 Assessment/Plan Assessment/Plan Additional Assessment/Plan Additional Assessment/Plan IMPRESSION: 1. Biliary obstruction. 2. Gram negative bacteremia, either from the urine or from the biliary system. 3. 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 4. 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 Gastroparesis Plan PTC Reglan Liquid diet now Consultation Date/Type/Reason Admit Date/Time Jun 30, 2016 at 15:42 Initial Consult Date 06/30/16 Type of Consultation: hematology Referring Provider: GAMALIEL HAIR MD 24 HR Interval Summary Constitutional: improved, no complaints Exam/Review of Systems Vital Signs Vitals Vital Signs Date Time Temp Pulse Resp B/P Pulse Ox O2 Delivery O2 Flow Rate FiO2 07/04/16 17:12 96 07/04/16 15:38 98.6 20 119/69 98 07/03/16 14:25 Room Air 10.0 Intake and Output 07/03/16 07/03/16 07/04/16 15:00 23:00 07:00 Intake Total 100 ml 100 ml 1250 ml Balance 100 ml 100 ml 1250 ml Exam Constitutional: alert, oriented, well developed Psych: nl mood/affect, no complaints Head: atraumatic, normocephalic Eyes: EOMI, PERRL, nl conjunctiva, nl lids, nl sclera ENMT: nl external ears & nose, nl lips & teeth, nl nasal mucosa & septum Neck: non-tender, supple Respiratory: clear to auscultation, normal air movement Cardiovascular: nl pulses, regular rate and rhythm Gastrointestinal: nl liver, spleen, non-tender, soft Musculoskeletal: nl extremities to inspection, nl gait and stance Extremities: normal pulses Neurological: PUMP OILER II-XII intact, nl mental status, nl speech, nl strength Skin: nl turgor, No rash or lesions Lymph: nl lymph nodes Results Result Diagram: 07/04/16 0651 07/04/16 0651 Results 24 hrs Laboratory Tests Test 07/04/16 06:50 07/04/16 06:51 07/04/16 14:35 Vancomycin Level Trough 12.6 White Blood Count 9.9 Red Blood Count 3.74 L Hemoglobin 11.3 L Hematocrit 33.7 L Mean Corpuscular Volume 90.1 Mean Corpuscular Hemoglobin 30.2 Mean Corpuscular Hemoglobin Concent 33.5 Red Cell Distribution Width 15.8 H Platelet Count 203 Mean Platelet Volume 10.7 H Neutrophils % 74.3 Lymphocytes % 14.1 L Monocytes % 7.3 Eosinophils % 0.4 Basophils % 0.3 Nucleated Red Blood Cells % 0.0 Neutrophils # 7.4 Lymphocytes # 1.4 Monocytes # 0.7 Eosinophils # 0.0 Basophils # 0.0 Nucleated Red Blood Cells # 0.0 Sodium Level 136 Potassium Level 3.5 Chloride Level 104 Carbon Dioxide Level 22 Anion Gap 14 Blood Urea Nitrogen 13 Creatinine 0.53 L Glucose Level 102 Calcium Level 7.9 L Total Bilirubin 4.3 H Direct Bilirubin 3.30 H Indirect Bilirubin 1.0 Aspartate Amino Transf (AST/SGOT) 81 H Alanine Aminotransferase (ALT/SGPT) 76 H Alkaline Phosphatase 325 H Total Protein 4.9 L Albumin 2.2 L Globulin 2.70 Albumin/Globulin Ratio 0.81 Iron Level 33 L Total Iron Binding Capacity 192 L Percent Iron Saturation 17 L Ferritin 357.0 H Medications Medications Current Medications Potassium Chloride/Sodium Chloride (NS-KCl 20 Meq) 1,000 ml @ 80 mls/hr [id number] IV Last administered on 07/04/16 06:20; Admin Dose 80 MLS/HR; Start at 16:18 Ondansetron HCl (Zofran Inj) 4 mg Q6H PRN IV NAUSEA AND/OR VOMITING Last administered on 07/03/16 01:02; Admin Dose 4 MG; Start 06/30/16 at 16:30 Acetaminophen (Tylenol Tab) 650 mg Q6H PRN PO PAIN LEVEL 1-3 OR FEVER; Start at 16:30 Acetaminophen (Tylenol Supp) 650 mg Q6H PRN [place] PAIN LEVEL 1-3 OR FEVER; Start 06/30/16 at 16:30 Acetaminophen/ Hydrocodone Bitart ([place] (5/325)) 1 tab Q6H PRN PO MODERATE PAIN LEVEL 4-6; Start 06/30/16 at 16:30 Acetaminophen/ Hydrocodone Bitart ([place] (5/325)) 2 tab Q6H PRN PO SEVERE PAIN LEVEL 7-10; Start 06/30/16 at 16:30 Morphine Sulfate (morphine) 2 mg Q4H PRN IV SEVERE PAIN LEVEL 7-10; Start 06/30 at 16:30 Docusate Sodium (Colace) 100 mg Q12H PRN PO CONSTIPATION; Start 06/30/16 at 16: 30 Magnesium Hydroxide (Milk Of Mag) 30 ml DAILY PRN PO CONSTIPATION; Start at 16:30 Bisacodyl (Dulcolax Supp) 10 mg DAILY PRN [place] CONSTIPATION; Start 06/30/16 at 16 :30 Pantoprazole (Protonix Iv) 40 mg DAILY@06 IV Last administered on 07/04/16 06: 26; Admin Dose 40 MG; Start 07/01/16 at 06:00 Heparin Sodium (Porcine) 5000 unit 5,000 unit Q12 SC Last administered on 09:12; Admin Dose 5,000 UNIT; Start 06/30/16 at 21:00; Status Future Hold Piperacillin Sod/ Tazobactam Sod (Zosyn 3.375gm/ 100 ml (Pmx)) 100 ml @ 200 mls /hr Q8 IVPB Last administered on 07/04/16 13:02; Admin Dose 200 MLS/HR; Start 06/30/16 at 22:30 Metoclopramide HCl (Reglan) 10 mg Q6 IV Last administered on 07/04/16 17:36; Admin Dose 10 MG; Start 07/03/16 at 18:00 TIANNA SALINAS MD July 04, 2016 18:17
[2016-07-05] VITALS (10 sets, daily range): BP systolic 125–153; BP diastolic 75–79; PULSE 75–91; RESP 18–20
[2016-07-05] MEDS: morphine 2 MG INJ IV PRN ×2 (00:51→05:48)
[2016-07-05] MEDS: PANTOPRAZOLE 40 MG INJ IV SCH (05:48)
[2016-07-05] MEDS: METOCLOPRAMIDE 10 MG INJ IV SCH ×4 (05:48→23:42)
[2016-07-05] MEDS: PIPER-TAZO 3.375 GM IV (PMX) 100 ML IVPB SCH ×3 (05:48→21:53)
[2016-07-05 09:29] LABS: ADD SCAN DIFF NO
[2016-07-05 09:32] LABS: BASOPHILS % 0.1 % (0.0-2.0); EOSINOPHILS % 0.1 % (0.0-7.0); HEMATOCRIT 35.9 % (42.0-52.0); LYMPHOCYTES # 1.3 10^3/ul (0.8-2.9); LYMPHOCYTES % 9.3 % (15.0-51.0); MEAN CORPUSCULAR HEMOGLOBIN 29.9 pg (29.0-33.0); MEAN CORPUSCULAR HGB CONC 33.4 g/dl (32.0-37.0); MEAN CORPUSCULAR VOLUME 89.3 fl (82.0-101.0); MEAN PLATELET VOLUME 10.6 fl (7.4-10.4); MONOCYTE # 0.8 10^3/ul (0.3-0.9); MONOCYTES % 5.7 % (0.0-11.0); NEUTROPHIL # 11.3 10^3/ul (1.6-7.5); NEUTROPHILS % 81.8 % (39.0-77.0); PLATELET COUNT 251 10^3/UL (140-415); RED BLOOD COUNT 4.02 10^6/ul (4.70-6.10); RED CELL DISTRIBUTION WIDTH 16.3 % (11.5-14.5); WHITE BLOOD COUNT 13.9 10^3/ul (4.8-10.8)
[2016-07-05 09:47] LABS: ALBUMIN 2.6 g/dl (3.3-4.9); ALBUMIN/GLOBULIN RATIO 0.76; BILIRUBIN,DIRECT 3.9 mg/dl (0.00-0.20); BILIRUBIN,TOTAL 4.9 mg/dl (0.2-1.3); CALCIUM 8.3 mg/dl (8.4-10.2); CREATININE 0.63 mg/dl (0.61-1.24); POTASSIUM 3.1 mmol/L (3.5-5.1)
[2016-07-05] MEDS: NS + KCL 20 MEQ 1,000 ML IV SCH ×2 (10:02→21:53)
--- NOTE | 2016-07-05 10:36 | CONS ---
Date/Time of Note Date/Time of Note DATE: 07/05/16 TIME: 10:36 Assessment/Plan Assessment/Plan Additional Assessment/Plan Additional Assessment/Plan IMPRESSION: 1. Biliary obstruction. 2. Gram negative bacteremia, either from the urine or from the biliary system. 3. 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 4. 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 Gastroparesis Plan PTC Reglan Liquid diet now PTC today with possible external drainage. Consultation Date/Type/Reason Admit Date/Time Jun 30, 2016 at 15:42 Initial Consult Date 06/30/16 Type of Consultation: hematology Referring Provider: GAMALIEL HAIR MD 24 HR Interval Summary Free Text/Dictation Patient has no abdominal pain, no nausea no vomiting Constitutional: no complaints Exam/Review of Systems Vital Signs Vitals Vital Signs Date Time Temp Pulse Resp B/P Pulse Ox O2 Delivery O2 Flow Rate FiO2 07/05/16 08:22 91 07/05/16 07:33 97.8 18 125/78 95 07/03/16 14:25 Room Air 10.0 Intake and Output 07/04/16 07/04/16 07/05/16 15:00 23:00 07:00 Intake Total 1500 ml 1000 ml Balance 1500 ml 1000 ml Exam Constitutional: alert, oriented, well developed Psych: nl mood/affect, no complaints Head: atraumatic, normocephalic Eyes: EOMI, PERRL, nl conjunctiva, nl lids, nl sclera ENMT: nl external ears & nose, nl lips & teeth, nl nasal mucosa & septum Neck: non-tender, supple Respiratory: clear to auscultation, normal air movement Cardiovascular: nl pulses, regular rate and rhythm Gastrointestinal: nl liver, spleen, non-tender, soft Musculoskeletal: nl extremities to inspection, nl gait and stance Extremities: normal pulses Neurological: MEDICAL BILLING SPECIALIST II-XII intact, nl mental status, nl speech, nl strength Skin: nl turgor, No rash or lesions Lymph: nl lymph nodes Results Result Diagram: 07/05/16 0708 07/05/16 0708 Results 24 hrs Laboratory Tests Test 07/04/16 14:35 07/05/16 07:08 Iron Level 33 L Total Iron Binding Capacity 192 L Percent Iron Saturation 17 L Ferritin 357.0 H White Blood Count 13.9 #H Red Blood Count 4.02 L Hemoglobin 12.0 L Hematocrit 35.9 L Mean Corpuscular Volume 89.3 Mean Corpuscular Hemoglobin 29.9 Mean Corpuscular Hemoglobin Concent 33.4 Red Cell Distribution Width 16.3 H Platelet Count 251 # Mean Platelet Volume 10.6 H Neutrophils % 81.8 H Lymphocytes % 9.3 L Monocytes % 5.7 Eosinophils % 0.1 Basophils % 0.1 Nucleated Red Blood Cells % 0.0 Neutrophils # 11.3 H Lymphocytes # 1.3 Monocytes # 0.8 Eosinophils # 0.0 Basophils # 0.0 Nucleated Red Blood Cells # 0.0 Sodium Level 136 Potassium Level 3.1 L Chloride Level 105 Carbon Dioxide Level 21 Anion Gap 13 Blood Urea Nitrogen 11 Creatinine 0.63 Glucose Level 107 Calcium Level 8.3 L Magnesium Level 1.8 Total Bilirubin 4.9 H Direct Bilirubin 3.90 H Indirect Bilirubin 1.0 Aspartate Amino Transf (AST/SGOT) 108 H Alanine Aminotransferase (ALT/SGPT) 81 H Alkaline Phosphatase 433 H Total Protein 6.0 #L Albumin 2.6 L Globulin 3.40 H Albumin/Globulin Ratio 0.76 Medications Medications Current Medications Potassium Chloride/Sodium Chloride (NS-KCl 20 Meq) 1,000 ml @ 80 mls/hr [id number] IV Last administered on 07/05/16 10:02; Admin Dose 80 MLS/HR; Start at 16:18 Ondansetron HCl (Zofran Inj) 4 mg Q6H PRN IV NAUSEA AND/OR VOMITING Last administered on 07/03/16 01:02; Admin Dose 4 MG; Start 06/30/16 at 16:30 Acetaminophen (Tylenol Tab) 650 mg Q6H PRN PO PAIN LEVEL 1-3 OR FEVER; Start at 16:30 Acetaminophen (Tylenol Supp) 650 mg Q6H PRN [place] PAIN LEVEL 1-3 OR FEVER; Start 06/30/16 at 16:30 Acetaminophen/ Hydrocodone Bitart ([place] (5/325)) 1 tab Q6H PRN PO MODERATE PAIN LEVEL 4-6; Start 06/30/16 at 16:30 Acetaminophen/ Hydrocodone Bitart ([place] (5/325)) 2 tab Q6H PRN PO SEVERE PAIN LEVEL 7-10; Start 06/30/16 at 16:30 Morphine Sulfate (morphine) 2 mg Q4H PRN IV SEVERE PAIN LEVEL 7-10 Last administered on 07/05/16 05:48; Admin Dose 2 MG; Start 06/30/16 at 16:30 Docusate Sodium (Colace) 100 mg Q12H PRN PO CONSTIPATION; Start 06/30/16 at 16: 30 Magnesium Hydroxide (Milk Of Mag) 30 ml DAILY PRN PO CONSTIPATION; Start at 16:30 Bisacodyl (Dulcolax Supp) 10 mg DAILY PRN [place] CONSTIPATION; Start 06/30/16 at 16 :30 Pantoprazole (Protonix Iv) 40 mg DAILY@06 IV Last administered on 07/05/16 05: 48; Admin Dose 40 MG; Start 07/01/16 at 06:00 Heparin Sodium (Porcine) 5000 unit 5,000 unit Q12 SC Last administered on 09:12; Admin Dose 5,000 UNIT; Start 06/30/16 at 21:00; Status Future Hold Piperacillin Sod/ Tazobactam Sod (Zosyn 3.375gm/ 100 ml (Pmx)) 100 ml @ 200 mls /hr Q8 IVPB Last administered on 07/05/16 05:48; Admin Dose 200 MLS/HR; Start 06/30/16 at 22:30 Metoclopramide HCl (Reglan) 10 mg Q6 IV Last administered on 07/05/16 05:48; Admin Dose 10 MG; Start 07/03/16 at 18:00 TIANNA SALINAS MD July 05, 2016 10:36
--- NOTE | 2016-07-05 13:56 | PN ---
DATE: 07/05/2016 SUBJECTIVE: No acute changes. The patient is alert, lying comfortably in bed. He is afebrile. De nies nausea, vomiting, diarrhea. No fevers. LABORATORY DATA: WBC 13.9, platelets 251, neutrophils 81.8. BUN 11, creatinine 0.63. MICROBIOLOGY: Blood culture on admission grew E. coli. Urine culture grew Pseudomonas aeruginosa. ANTIMICROBIALS: The patient is on Zosyn. INDWELLINGS: Right chest Port-A-Cath. PHYSICAL EXAMINATION: GENERAL: This is a well-developed elderly man who is awake, in no distress. HEENT: Head atraumatic, normocephalic. Sclerae anicteric. Buccal mucosa dry. NECK: Supple, trachea midline. CHEST: Rise symmetrical. Breath sounds diminished to bases. HEART: S1, S2. ABDOMEN: Soft. Bowel tones present. EXTREMITIES: Without cyanosis or edema. ASSESSMENT: 1. Escherichia coli bacteremia, likely biliary sepsis. 2. Biliary obstruction status post unsuccessful ERCP. 3. Metastatic urothelial cancer with questionable carcinomatosis. 4. History of duodenal stent placement secondary to gastric outlet obstruction. 5. Pseudomonas aeruginosa urinary tract infection. 6. Right chest Port-A-Cath. PLAN: The patient remains stable. Repeat blood cultures on 07/01/2016 were negative. He is on Zos yn. Gastroenterology and oncology on case. We will follow their recommendations eating. Dictated By: MARIELA ROBIN ENTERPRISE RESOURCE PLANNER for [facility] BARRIG[employer]/NTS Conf#: [id number] DID#: [id number]
--- NOTE | 2016-07-05 14:12 | CONS ---
Date/Time of Note Date/Time of Note DATE: 07/05/16 TIME: 14:09 Assessment/Plan Assessment/Plan Chief Complaint/Hosp Course 60 year old male with metastatic urothelial cancer who had presented during the last admission with gastric outlet obstruction status post duodenal stent . It was initially thought GI primary and FOLFOX given 06/04/16 based on prelim path and severe obstructive symptoms, however further path review showed primary. Patient now readmitted with sepsis with abdominal pain. # metastatic urothelial cancer - CT A/P demonstrates infiltrative neoplasm involving the cecum, ascending colon and hepatic flexure with extension of tumor to the serosa involving the lateral wall of the duodenum. This has advanced as compared to 05/27/2016. - Dr Rogelio had planned to start gemcitabine 1000 mg/m2 D1, 8 and carboplatin AUC 4.5 D1 however will have to hold off for now until sepsis resolves and bacteremia has been cleared and adequately treated with at least 14 days of antibiotics for bacteremia. # GNR bacteremia - the source is not clear but could be coming from urine or duodenal stent - Patient now on vanc/zosyn with GNR bacteremia. last blood cultures were clear -will hold on removing the port for now. if ID feels it is necessary to remove and if bacteremia does not clear, will remove at that time # Biliary obstruction -per GI, patient Bili is stable. -agree with percutaneous biliary drain given rise in bilirubin # Diabetic Gastroparesis -cont reglan Approximately 40 min were spent at patient's bedside and in coordination of his care Problems: Consultation Date/Type/Reason Admit Date/Time Jun 30, 2016 at 15:42 Initial Consult Date 06/30/16 Type of Consultation: hematology Reason for Consultation metastatic bladder cancer Referring Provider: GAMALIEL HAIR MD 24 HR Interval Summary Free Text/Dictation to have percutaneous biliary drain placed. denies abdominal pain. no fevers Exam/Review of Systems Vital Signs Vitals Vital Signs Date Time Temp Pulse Resp B/P Pulse Ox O2 Delivery O2 Flow Rate FiO2 07/05/16 12:05 86 07/05/16 11:13 98.8 18 135/79 94 07/03/16 14:25 Room Air 10.0 Intake and Output 07/04/16 07/04/16 07/05/16 15:00 23:00 07:00 Intake Total 1500 ml 1000 ml Balance 1500 ml 1000 ml Exam Constitutional: alert, oriented Psych: no complaints Head: normocephalic Eyes: nl conjunctiva ENMT: nl external ears & nose Neck: non-tender, supple Respiratory: clear to auscultation Cardiovascular: nl pulses, regular rate and rhythm Gastrointestinal: soft Musculoskeletal: nl extremities to inspection Results Result Diagram: 07/05/16 0708 07/05/16 0708 Results 24 hrs Laboratory Tests Test 07/04/16 14:35 07/05/16 07:08 Iron Level 33 L Total Iron Binding Capacity 192 L Percent Iron Saturation 17 L Ferritin 357.0 H White Blood Count 13.9 #H Red Blood Count 4.02 L Hemoglobin 12.0 L Hematocrit 35.9 L Mean Corpuscular Volume 89.3 Mean Corpuscular Hemoglobin 29.9 Mean Corpuscular Hemoglobin Concent 33.4 Red Cell Distribution Width 16.3 H Platelet Count 251 # Mean Platelet Volume 10.6 H Neutrophils % 81.8 H Lymphocytes % 9.3 L Monocytes % 5.7 Eosinophils % 0.1 Basophils % 0.1 Nucleated Red Blood Cells % 0.0 Neutrophils # 11.3 H Lymphocytes # 1.3 Monocytes # 0.8 Eosinophils # 0.0 Basophils # 0.0 Nucleated Red Blood Cells # 0.0 Sodium Level 136 Potassium Level 3.1 L Chloride Level 105 Carbon Dioxide Level 21 Anion Gap 13 Blood Urea Nitrogen 11 Creatinine 0.63 Glucose Level 107 Calcium Level 8.3 L Magnesium Level 1.8 Total Bilirubin 4.9 H Direct Bilirubin 3.90 H Indirect Bilirubin 1.0 Aspartate Amino Transf (AST/SGOT) 108 H Alanine Aminotransferase (ALT/SGPT) 81 H Alkaline Phosphatase 433 H Total Protein 6.0 #L Albumin 2.6 L Globulin 3.40 H Albumin/Globulin Ratio 0.76 Medications Medications Current Medications Potassium Chloride/Sodium Chloride (NS-KCl 20 Meq) 1,000 ml @ 80 mls/hr [id number] IV Last administered on 07/05/16 10:02; Admin Dose 80 MLS/HR; Start at 16:18 Ondansetron HCl (Zofran Inj) 4 mg Q6H PRN IV NAUSEA AND/OR VOMITING Last administered on 07/03/16 01:02; Admin Dose 4 MG; Start 06/30/16 at 16:30 Acetaminophen (Tylenol Tab) 650 mg Q6H PRN PO PAIN LEVEL 1-3 OR FEVER; Start at 16:30 Acetaminophen (Tylenol Supp) 650 mg Q6H PRN [place] PAIN LEVEL 1-3 OR FEVER; Start 06/30/16 at 16:30 Acetaminophen/ Hydrocodone Bitart ([place] (5/325)) 1 tab Q6H PRN PO MODERATE PAIN LEVEL 4-6; Start 06/30/16 at 16:30 Acetaminophen/ Hydrocodone Bitart ([place] (5/325)) 2 tab Q6H PRN PO SEVERE PAIN LEVEL 7-10; Start 06/30/16 at 16:30 Morphine Sulfate (morphine) 2 mg Q4H PRN IV SEVERE PAIN LEVEL 7-10 Last administered on 07/05/16 05:48; Admin Dose 2 MG; Start 06/30/16 at 16:30 Docusate Sodium (Colace) 100 mg Q12H PRN PO CONSTIPATION; Start 06/30/16 at 16: 30 Magnesium Hydroxide (Milk Of Mag) 30 ml DAILY PRN PO CONSTIPATION; Start at 16:30 Bisacodyl (Dulcolax Supp) 10 mg DAILY PRN [place] CONSTIPATION; Start 06/30/16 at 16 :30 Pantoprazole 40 mg 40 mg DAILY@06 IV Last administered on 07/05/16 05:48; Admin Dose 40 MG; Start 07/01/16 at 06:00 Piperacillin Sod/ Tazobactam Sod (Zosyn 3.375gm/ 100 ml (Pmx)) 100 ml @ 200 mls /hr Q8 IVPB Last administered on 07/05/16 05:48; Admin Dose 200 MLS/HR; Start 06/30/16 at 22:30 Metoclopramide HCl (Reglan) 10 mg Q6 IV Last administered on 07/05/16 12:15; Admin Dose 10 MG; Start 07/03/16 at 18:00 LETY HUNTER M.D. July 05, 2016 14:12
[2016-07-05] MEDS ORDERED: LIDOCAINE 1% (MDV) 20 ML INJ ONE (14:19)
[2016-07-05] MEDS ORDERED: IOHEXOL 300MG/ML 30 ML BTL ONE (14:19)
[2016-07-05] MEDS ORDERED: FENTAnyl 50 MCG/ML VIAL ONE (14:22)
[2016-07-05] MEDS ORDERED: DIPHENHYDRAMINE 50 MG INJ ONE (14:22)
[2016-07-05] MEDS ORDERED: MIDAZOLAM 1 MG/ML 2 ML INJ ONE (14:22)
--- NOTE | 2016-07-05 15:41 | CONS ---
DATE OF ADMISSION: 06/30/2016 DATE OF CONSULTATION: 07/04/2016 TYPE OF CONSULTATION: Palliative Care HISTORY OF PRESENT ILLNESS: This is a post-dated consultation noted on this 60-year-old gentleman, who I have obtained this information 90% through patient's medical records. As far as his physical f indings and answering all his questions, I was able to converse with him in Finnish. Looking throug h it, but the patient is a non-historian as far as his chief complaint and past medical history. Bu t reviewing his records, he has a history of metastatic urethral cancer, who underwent placement of a duodenal stent. The gentleman has a history of a bladder mass also initially thought by GI consul blanca. The patient was seen by Dr. Mercado as an outpatient and was undergoing consideration to begin ch emotherapy. Most notably that I can ascertain from reviewing the patient's medical records, is CT s can findings read by Dr. Gil rolle on 06/30/2016, which germane for this consultation include duodenal stent placement with thickening of the duodenum mucosa, enlarged periaortic and retroperit garcia lymph nodes, free fluid in the pelvis, infiltrative neoplasm involving the cecum, ascending co shad, hepatic flexure, extensive extension of the tumor to the serosa involving the lateral wall of t he duodenum, which is advanced compared to a prior study of 05/27/2016. Also ascites noted in the r ight pericolic gutter. The patient is non-historian as well as his spouse at the bedside. MEDICATIONS: Please refer to reconciliation sheets. ALLERGIES: NO KNOWN DRUG ALLERGIES. MAJOR MEDICAL PROBLEMS IN THE PAST: Germane for this consultation once again is history of present illness. PHYSICAL EXAMINATION: GENERAL: Shows an ashen-appearing male who is in no major acute distress, not complaining of pain. He is not moaning, groaning or grimacing. CHEST: Shows bilateral clear breath sounds throughout both lung thomas. COR: S1, S2, without S3, S4, murmur, gallop, rub. Normal rate, normal rhythm on examination. ABDOMEN: Tender in all 4 quadrants without rebound or peritoneal signs. Participant was his , who is a poor historian, also background. I will speak to other consultan ts for more information concerning his background and his understanding of his underlying medical co ndition, which I believe is poor. Acceptable quality of life will be addressed first with his prima ry care providers and then with patient to find out whether or not he had ever discussed it with Dr. Mercado in the past. Communication preference will be face to face in the future. IMPRESSION: Metastatic colon cancer with widespread metastases. Performance scale visually on exa mination is 40%. There are no pain management issues to address at this time or surrogate issues. It seems that patient could make his own decisions. He is a FULL CODE. I do not believe it is ind icated at this time to address that until I speak to his primary care providers. Dictated By: AMANUEL BRAMBILA MD LP/NTS Conf#: [id number] DID#: [id number]
--- NOTE | 2016-07-05 16:43 | PN ---
Date/Time of Note Date/Time of Note DATE: 07/05/16 TIME: 16:40 Assessment/Plan Lines/Catheters IV Catheter Type (from [facility]): Peripheral IV [place] in Place (from [facility]): No Assessment/Plan Chief Complaint/Hosp Course 1. Sepsis 2nd biliary obstruction s/p attempted unsuccessful ERCP 07/03 -abx -ivf -supportive care -PTC per IR 2. Transaminitis with Hyperbilirubinemia ? 2nd biliary obstruction ? 2nd tumor vs stent vs stone vs other -as above 3. Metastatic Urothelial cancer with ? carcinomatosis -heme/onc for tx after sepsis resolution 4. Hx obstructed duodenum with gastric outlet obstruction s/p duodenal stent 5. Steatosis -Eventual nutrition and lifestyle optimization 6. Weight loss probably secondary to above -As above Thank you, Problems: Subjective 24 Hr Interval Summary s/p Attempted ERCP 07/03. No f/c. Min abdominal pain. No chest pain or shortness of breath. No cough. No seizure. No headache, visual, or neurologic changes. No dysuria. WBC & LFTs persist. Exam/Review of Systems Vital Signs Vitals Vital Signs Date Time Temp Pulse Resp B/P Pulse Ox O2 Delivery O2 Flow Rate FiO2 07/05/16 12:05 86 07/05/16 11:13 98.8 18 135/79 94 07/03/16 14:25 Room Air 10.0 Intake and Output 07/04/16 07/04/16 07/05/16 15:00 23:00 07:00 Intake Total 1500 ml 1000 ml Balance 1500 ml 1000 ml Exam Free Text/Dictation Constitutional: alert, oriented, No distress Psych: nl mood/affect, No anxiety, No confusion Head: atraumatic, normocephalic Eyes: EOMI, PERRL, nl conjunctiva, icterus ENMT: mucosa pink and moist, nl external ears & nose, nl lips & teeth Neck: non-tender, supple, No jvd, No masses Respiratory: normal air movement, No congested cough, No labored breathing Cardiovascular: regular rate and rhythm, No edema Gastrointestinal: min-tender, soft, No distended, No rebound or guarding Genitourinary - Male: nl scrotum Musculoskeletal: nl extremities to inspection, nl gait and stance, No joint tenderness Extremities: normal pulses, No calf tenderness, No cyanosis Neurological: nl mental status, nl speech, nl strength Skin: nl turgor, jaundice No diaphoresis, No rash or lesions Lymph: No nl lymph nodes (Inguinal) Results Result Diagram: 07/05/16 0708 07/05/16 0708 DIAMOND FITZGERALD MD July 05, 2016 16:43
--- NOTE | 2016-07-05 18:32 | PN ---
Date/Time of Note Date/Time of Note DATE: 07/05/16 TIME: 18:29 Assessment/Plan VTE Prophylaxis VTE Prophylaxis Intervention: heparin, SCD's Lines/Catheters IV Catheter Type (from [facility]): Peripheral IV Urinary Cath still in place: No Assessment/Plan Assessment/Plan 1. Sepsis 2nd biliary obstruction s/p attempted unsuccessful ERCP 07/03, biliary sepsis with E coli bacteremia -abx -ivf -supportive care -PTC per IR 2. Transaminitis with Hyperbilirubinemia ? 2nd biliary obstruction ? 2nd tumor vs stent vs stone vs other -as above 3. Metastatic Urothelial cancer with ? carcinomatosis -heme/onc for tx after sepsis resolution 4. Hx obstructed duodenum with gastric outlet obstruction s/p duodenal stent 5. Steatosis -Eventual nutrition and lifestyle optimization 6. Weight loss probably secondary to above heparin for DVT prophylaxis IV abx zosyn IVF NS with KCL KCl 20meQ IV x 1 extra dose Subjective 24 Hr Interval Summary Free Text/Dictation no events, IV abx, BP stbale, K low Exam/Review of Systems Vital Signs Vitals Vital Signs Date Time Temp Pulse Resp B/P Pulse Ox O2 Delivery O2 Flow Rate FiO2 07/05/16 16:50 79 07/05/16 16:47 98.0 18 135/75 93 Room Air 07/03/16 14:25 10.0 Intake and Output 07/04/16 07/04/16 07/05/16 15:00 23:00 07:00 Intake Total 1500 ml 1000 ml Balance 1500 ml 1000 ml Exam GENERAL: This is a well-developed elderly man who is awake, in no distress. HEENT: Head atraumatic, normocephalic. Sclerae anicteric. Buccal mucosa dry. NECK: Supple, trachea midline. CHEST: Rise symmetrical. Breath sounds diminished to bases. HEART: S1, S2. ABDOMEN: Soft. Bowel tones present. EXTREMITIES: Without cyanosis or edema. Results Result Diagram: 07/05/16 0708 07/05/16 0708 Results 24 hrs Laboratory Tests Test 07/05/16 07:08 White Blood Count 13.9 #H Red Blood Count 4.02 L Hemoglobin 12.0 L Hematocrit 35.9 L Mean Corpuscular Volume 89.3 Mean Corpuscular Hemoglobin 29.9 Mean Corpuscular Hemoglobin Concent 33.4 Red Cell Distribution Width 16.3 H Platelet Count 251 # Mean Platelet Volume 10.6 H Neutrophils % 81.8 H Lymphocytes % 9.3 L Monocytes % 5.7 Eosinophils % 0.1 Basophils % 0.1 Nucleated Red Blood Cells % 0.0 Neutrophils # 11.3 H Lymphocytes # 1.3 Monocytes # 0.8 Eosinophils # 0.0 Basophils # 0.0 Nucleated Red Blood Cells # 0.0 Sodium Level 136 Potassium Level 3.1 L Chloride Level 105 Carbon Dioxide Level 21 Anion Gap 13 Blood Urea Nitrogen 11 Creatinine 0.63 Glucose Level 107 Calcium Level 8.3 L Magnesium Level 1.8 Total Bilirubin 4.9 H Direct Bilirubin 3.90 H Indirect Bilirubin 1.0 Aspartate Amino Transf (AST/SGOT) 108 H Alanine Aminotransferase (ALT/SGPT) 81 H Alkaline Phosphatase 433 H Total Protein 6.0 #L Albumin 2.6 L Globulin 3.40 H Albumin/Globulin Ratio 0.76 Medications Medications Current Medications Potassium Chloride/Sodium Chloride (NS-KCl 20 Meq) 1,000 ml @ 80 mls/hr [id number] IV Last administered on 07/05/16 10:02; Admin Dose 80 MLS/HR; Start at 16:18 Ondansetron HCl (Zofran Inj) 4 mg Q6H PRN IV NAUSEA AND/OR VOMITING Last administered on 07/03/16 01:02; Admin Dose 4 MG; Start 06/30/16 at 16:30 Acetaminophen (Tylenol Tab) 650 mg Q6H PRN PO PAIN LEVEL 1-3 OR FEVER; Start at 16:30 Acetaminophen (Tylenol Supp) 650 mg Q6H PRN [place] PAIN LEVEL 1-3 OR FEVER; Start 06/30/16 at 16:30 Acetaminophen/ Hydrocodone Bitart ([place] (5/325)) 1 tab Q6H PRN PO MODERATE PAIN LEVEL 4-6; Start 06/30/16 at 16:30 Acetaminophen/ Hydrocodone Bitart ([place] (5/325)) 2 tab Q6H PRN PO SEVERE PAIN LEVEL 7-10; Start 06/30/16 at 16:30 Morphine Sulfate (morphine) 2 mg Q4H PRN IV SEVERE PAIN LEVEL 7-10 Last administered on 07/05/16 05:48; Admin Dose 2 MG; Start 06/30/16 at 16:30 Docusate Sodium (Colace) 100 mg Q12H PRN PO CONSTIPATION; Start 06/30/16 at 16: 30 Magnesium Hydroxide (Milk Of Mag) 30 ml DAILY PRN PO CONSTIPATION; Start at 16:30 Bisacodyl (Dulcolax Supp) 10 mg DAILY PRN [place] CONSTIPATION; Start 06/30/16 at 16 :30 Pantoprazole 40 mg 40 mg DAILY@06 IV Last administered on 07/05/16 05:48; Admin Dose 40 MG; Start 07/01/16 at 06:00 Piperacillin Sod/ Tazobactam Sod (Zosyn 3.375gm/ 100 ml (Pmx)) 100 ml @ 200 mls /hr Q8 IVPB Last administered on 07/05/16 16:49; Admin Dose 200 MLS/HR; Start 06/30/16 at 22:30 Metoclopramide HCl (Reglan) 10 mg Q6 IV Last administered on 07/05/16 18:21; Admin Dose 10 MG; Start 07/03/16 at 18:00 SHANAE LEWIS MD July 05, 2016 18:32
--- NOTE | 2016-07-05 18:51 | RADRPT ---
PROCEDURE: Fluoroscopic guided external biliary drainage and transhepatic cholangiogram. CLINICAL INDICATION: Biliary obstruction. TECHNIQUE: Prior to the procedure, informed consent was obtained. Risks including bleeding and inf ection were explained to the patient. The patient understood and was willing to proceed. A procedura l pause was performed. The patient's name, date of , and procedure to be performed were verifie d. The right upper quadrant of the abdomen was prepped and draped in the usual sterile fashion. Following injection of lidocaine, a 22-gauge needle was advanced into the liver in the right mid axi llary line. The needle was withdrawn during injection of iodinated contrast. Contrast entered a dila antionette bile duct. A 0.018 inch guidewire was then advanced through the peripheral bile duct into a mor e central bile duct. The tract was dilated to 6-Irish. Contrast was injected opacifying the bile du cts. The 0.018 inch guidewire was removed and replaced with a 0.035 inch guidewire. A Kumpe catheter was advanced over the guidewire and the guidewire was advanced into the common bile duct. The apolinar ter was removed leaving the guide wire in position. The tract was dilated to 8-Irish and and 8.5 F rench internal drainage catheter was advanced over the guidewire so that the pigtail was formed in t he biliary system. The catheter was then secured to the patient's skin with 2-0 silk. The drainage catheter was then connected to a standard gravity drainage bag. COMPARISON: ERCP dated 07/03/2016. FINDINGS: Images with contrast demonstrate dilated intrahepatic bile ducts and dilated common bile duct. The c ommon bile duct is abnormal distally with irregular tapering. Subsequent images demonstrate the guid e wire and catheter in the common bile duct. Final images demonstrate the internal drainage catheter in satisfactory position. IMPRESSION: 1. Satisfactory fluoroscopic guided biliary drainage. Internal drainage catheter in satisfactory p osition. RPTAT: QQ .Naldo Oneal MD, MD Date Time Electronically viewed and signed by .Naldo Oneal MD, on 07/05/2016 18:50 .R/
[2016-07-05] MEDS ORDERED: POTASSIUM CHLORIDE 20 MEQ in SOD CHLORIDE 0.9% 100 ML IVPB ONE (19:30)
[2016-07-06 00:11] VITALS: BP 129/74; RESP 20
[2016-07-06 04:15] VITALS: BP 115/73; RESP 20
[2016-07-06] MEDS: PIPER-TAZO 3.375 GM IV (PMX) 100 ML IVPB SCH ×3 (05:40→23:04)
[2016-07-06] MEDS: METOCLOPRAMIDE 10 MG INJ IV SCH ×3 (05:40→18:26)
[2016-07-06] MEDS: PANTOPRAZOLE 40 MG INJ IV SCH (05:40)
[2016-07-06 07:53] VITALS: BP 122/77; RESP 17
[2016-07-06 08:14] LABS: ADD SCAN DIFF NO
[2016-07-06 08:22] LABS: BASOPHILS % 0.1 % (0.0-2.0); EOSINOPHILS % 0.1 % (0.0-7.0); HEMOGLOBIN 10.6 g/dl (14.0-18.0); LYMPHOCYTES # 1.1 10^3/ul (0.8-2.9); LYMPHOCYTES % 8.1 % (15.0-51.0); MEAN CORPUSCULAR HEMOGLOBIN 30.4 pg (29.0-33.0); MEAN CORPUSCULAR HGB CONC 34.2 g/dl (32.0-37.0); MEAN CORPUSCULAR VOLUME 88.8 fl (82.0-101.0); MEAN PLATELET VOLUME 10.2 fl (7.4-10.4); MONOCYTE # 0.6 10^3/ul (0.3-0.9); MONOCYTES % 4.3 % (0.0-11.0); NEUTROPHIL # 11.4 10^3/ul (1.6-7.5); NEUTROPHILS % 85.4 % (39.0-77.0); PLATELET COUNT 235 10^3/UL (140-415); RED BLOOD COUNT 3.49 10^6/ul (4.70-6.10); WHITE BLOOD COUNT 13.4 10^3/ul (4.8-10.8)
[2016-07-06] MEDS: NS + KCL 20 MEQ 1,000 ML IV SCH ×2 (09:19→23:05)
[2016-07-06 09:23] LABS: ALBUMIN 2.2 g/dl (3.3-4.9)
[2016-07-06 09:24] LABS: POTASSIUM 3.4 mmol/L (3.5-5.1)
[2016-07-06 09:26] LABS: ALBUMIN/GLOBULIN RATIO 0.81; BILIRUBIN,DIRECT 0.8 mg/dl (0.00-0.20); BILIRUBIN,TOTAL 1.8 mg/dl (0.2-1.3); CALCIUM 7.9 mg/dl (8.4-10.2); CREATININE 0.59 mg/dl (0.61-1.24); TOTAL PROTEIN 4.9 g/dl (6.1-8.1)
[2016-07-06 11:51] VITALS: BP 138/77; RESP 17
[2016-07-06] MEDS: ONDANSETRON 4 MG INJ IV PRN ×2 (12:10→21:01)
[2016-07-06] MEDS ORDERED: POTASSIUM CHLORIDE 20 MEQ in SOD CHLORIDE 0.9% 100 ML IVPB SCH (12:30)
--- NOTE | 2016-07-06 13:04 | PN ---
DATE: 07/06/2016 SUBJECTIVE: The patient is lying comfortably in bed. Denies pain, discomfort. No fevers. LABORATORIES: WBC 13.4, platelets 235, neutrophils 85.4, BUN 15, creatinine 0.59. ANTIMICROBIALS: The patient remains on Zosyn. PHYSICAL EXAMINATION: GENERAL: Well-developed, fragile, elderly man who is in no distress. HEENT: Head atraumatic, normocephalic. Sclerae anicteric. Buccal mucosa dry. NECK: Supple, trachea midline. CHEST: Rise symmetrical. Breath sounds diminished to bases. HEART: S1, S2. ABDOMEN: Soft, bowel tones present. EXTREMITIES: No cyanosis. ASSESSMENT: 1. Escherichia coli bacteremia secondary to #2. 2. Biliary obstruction status post unsuccessful ERCP, status post fluoroscopic-guided biliary drain age with catheter placement on 07/05/2016. 3. Pseudomonas aeruginosa urinary tract infection. 4. Metastatic urothelial cancer with questionable carcinomatosis. 5. Right chest Port-A-Cath. PLAN: The patient remains clinically stable. Blood cultures repeated on the is negative. He is on Zosyn. He is being followed by surgery and gastroenterology and oncology. We will continue h im on current regimen. Dictated By: MARIELA ROBIN TELEVISION NEWS VIDEO EDITOR for PENNY BARRIGA/ANN MARIE Conf#: [id number] DID#: [id number]
--- NOTE | 2016-07-06 14:04 | CONS ---
Date/Time of Note Date/Time of Note DATE: 07/06/16 TIME: 14:01 Assessment/Plan Assessment/Plan Chief Complaint/Hosp Course 60 year old male with metastatic urothelial cancer who had presented during the last admission with gastric outlet obstruction status post duodenal stent . It was initially thought GI primary and FOLFOX given 06/04/16 based on prelim path and severe obstructive symptoms, however further path review showed primary. Patient now readmitted with sepsis with abdominal pain. # metastatic urothelial cancer - CT A/P demonstrates infiltrative neoplasm involving the cecum, ascending colon and hepatic flexure with extension of tumor to the serosa involving the lateral wall of the duodenum. This has advanced as compared to 05/27/2016. - Dr Mercado had planned to start gemcitabine 1000 mg/m2 D1, 8 and carboplatin AUC 4.5 D1 however will have to hold off for now until sepsis resolves and bacteremia has been cleared and adequately treated with at least 14 days of antibiotics for bacteremia. patient still has low grade fevers # GNR bacteremia - the source is not clear but could be coming from urine or duodenal stent - Patient now on vanc/zosyn with GNR bacteremia. last blood cultures were clear -will hold on removing the port for now. if ID feels it is necessary to remove and if bacteremia does not clear, will remove at that time # Biliary obstruction -per GI, patient Bili is stable. -s/p percutaneous biliary drain given rise in bilirubin. T bili now down to 1.8 # Diabetic Gastroparesis -cont reglan Approximately 40 min were spent at patient's bedside and in coordination of his care Problems: Consultation Date/Type/Reason Admit Date/Time Jun 30, 2016 at 15:42 Initial Consult Date 06/30/16 Type of Consultation: hematology Reason for Consultation metastatic bladder cancer Referring Provider: GAMALIEL HAIR MD 24 HR Interval Summary Free Text/Dictation patient had percutaneous biliary drain placed. denies abdominal pain. still with low grade fevers Exam/Review of Systems Vital Signs Vitals Vital Signs Date Time Temp Pulse Resp B/P Pulse Ox O2 Delivery O2 Flow Rate FiO2 07/06/16 11:51 98.5 86 17 138/77 94 07/05/16 16:47 Room Air 07/03/16 14:25 10.0 Intake and Output 07/05/16 07/05/16 07/06/16 15:00 23:00 07:00 Intake Total 2270 ml 1700 ml Output Total 60 ml 350 ml Balance 2210 ml 1350 ml Exam Constitutional: alert, frail, oriented Head: normocephalic Eyes: icteric, nl conjunctiva ENMT: nl external ears & nose Neck: non-tender, supple Respiratory: clear to auscultation, normal air movement Cardiovascular: regular rate and rhythm Gastrointestinal: soft Musculoskeletal: nl extremities to inspection, nl gait and stance Results Result Diagram: 07/06/16 0655 07/06/16 0655 Results 24 hrs Laboratory Tests Test 07/06/16 06:55 White Blood Count 13.4 H Red Blood Count 3.49 L Hemoglobin 10.6 L Hematocrit 31.0 L Mean Corpuscular Volume 88.8 Mean Corpuscular Hemoglobin 30.4 Mean Corpuscular Hemoglobin Concent 34.2 Red Cell Distribution Width 17.0 H Platelet Count 235 Mean Platelet Volume 10.2 Neutrophils % 85.4 H Lymphocytes % 8.1 L Monocytes % 4.3 Eosinophils % 0.1 Basophils % 0.1 Nucleated Red Blood Cells % 0.0 Neutrophils # 11.4 H Lymphocytes # 1.1 Monocytes # 0.6 Eosinophils # 0.0 Basophils # 0.0 Nucleated Red Blood Cells # 0.0 Sodium Level 136 Potassium Level 3.4 L Chloride Level 104 Carbon Dioxide Level 20 L Anion Gap 15 Blood Urea Nitrogen 15 Creatinine 0.59 L Glucose Level 110 Calcium Level 7.9 L Magnesium Level 1.7 Total Bilirubin 1.8 #H Direct Bilirubin 0.80 #H Indirect Bilirubin 1.0 Aspartate Amino Transf (AST/SGOT) 44 # Alanine Aminotransferase (ALT/SGPT) 63 Alkaline Phosphatase 305 H Total Protein 4.9 #L Albumin 2.2 L Globulin 2.70 Albumin/Globulin Ratio 0.81 Medications Medications Current Medications Potassium Chloride/Sodium Chloride (NS-KCl 20 Meq) 1,000 ml @ 80 mls/hr [id number] IV Last administered on 07/06/16 09:19; Admin Dose 80 MLS/HR; Start at 16:18 Ondansetron HCl (Zofran Inj) 4 mg Q6H PRN IV NAUSEA AND/OR VOMITING Last administered on 07/06/16 12:10; Admin Dose 4 MG; Start 06/30/16 at 16:30 Acetaminophen (Tylenol Tab) 650 mg Q6H PRN PO PAIN LEVEL 1-3 OR FEVER Last administered on 07/05/16 19:31; Admin Dose 650 MG; Start 06/30/16 at 16:30 Acetaminophen (Tylenol Supp) 650 mg Q6H PRN [place] PAIN LEVEL 1-3 OR FEVER; Start 06/30/16 at 16:30 Acetaminophen/ Hydrocodone Bitart ([place] (5/325)) 1 tab Q6H PRN PO MODERATE PAIN LEVEL 4-6; Start 06/30/16 at 16:30 Acetaminophen/ Hydrocodone Bitart ([place] (5/325)) 2 tab Q6H PRN PO SEVERE PAIN LEVEL 7-10; Start 06/30/16 at 16:30 Morphine Sulfate (morphine) 2 mg Q4H PRN IV SEVERE PAIN LEVEL 7-10 Last administered on 07/05/16 05:48; Admin Dose 2 MG; Start 06/30/16 at 16:30 Docusate Sodium (Colace) 100 mg Q12H PRN PO CONSTIPATION; Start 06/30/16 at 16: 30 Magnesium Hydroxide (Milk Of Mag) 30 ml DAILY PRN PO CONSTIPATION; Start at 16:30 Bisacodyl (Dulcolax Supp) 10 mg DAILY PRN [place] CONSTIPATION; Start 06/30/16 at 16 :30 Pantoprazole 40 mg 40 mg DAILY@06 IV Last administered on 07/06/16 05:40; Admin Dose 40 MG; Start 07/01/16 at 06:00 Piperacillin Sod/ Tazobactam Sod (Zosyn 3.375gm/ 100 ml (Pmx)) 100 ml @ 200 mls /hr Q8 IVPB Last administered on 07/06/16 05:40; Admin Dose 200 MLS/HR; Start 06/30/16 at 22:30 Metoclopramide HCl 10 mg 10 mg Q6 IV Last administered on 07/06/16 11:49; Admin Dose 10 MG; Start 07/03/16 at 18:00 Potassium Chloride/Sodium Chloride (KCl/NS) 110 ml @ 55 mls/hr ONCE IVPB Last administered on 07/06/16 12:51; Admin Dose 55 MLS/HR; Start 07/06/16 at 12:30; Stop 07/06/16 at 14:29 LETY HUNTER M.D. 3, 2017 14:04
--- NOTE | 2016-07-06 15:09 | PN ---
Date/Time of Note Date/Time of Note DATE: 07/06/16 TIME: 15:07 Assessment/Plan VTE Prophylaxis VTE Prophylaxis Intervention: heparin Lines/Catheters IV [facility] Peripheral IV Urinary Cath still in place: No Assessment/Plan Assessment/Plan 1. Sepsis 2nd biliary obstruction s/p attempted unsuccessful ERCP 07/03, biliary sepsis with E coli bacteremia - on IV abx, ID following 2. Transaminitis with Hyperbilirubinemia ? 2nd biliary obstruction ? 2nd tumor vs stent vs stone vs other -as above 3. Metastatic Urothelial cancer with ? carcinomatosis -heme/onc for tx after sepsis resolution 4. Hx obstructed duodenum with gastric outlet obstruction s/p duodenal stent 5. Steatosis -Eventual nutrition and lifestyle optimization 6. Weight loss probably secondary to above heparin for DVT prophylaxis IV abx zosyn IVF NS with KCL - decrease rate to 70cc/hr, pt still on full liquid diet, diet advancement as per GI KCl 20meQ IV x 1 extra dose Subjective 24 Hr Interval Summary Free Text/Dictation no acute events, K low, still tachycardic Exam/Review of Systems Vital Signs Vitals Vital Signs Date Time Temp Pulse Resp B/P Pulse Ox O2 Delivery O2 Flow Rate FiO2 07/06/16 11:51 98.5 86 17 138/77 94 07/05/16 16:47 Room Air 07/03/16 14:25 10.0 Intake and Output 07/05/16 07/05/16 07/06/16 14:59 22:59 06:59 Intake Total 2270 ml 1700 ml Output Total 60 ml 350 ml Balance 2210 ml 1350 ml Results Result Diagram: 07/06/16 0655 07/06/16 0655 Results 24 hrs Laboratory Tests Test 07/06/16 06:55 White Blood Count 13.4 H Red Blood Count 3.49 L Hemoglobin 10.6 L Hematocrit 31.0 L Mean Corpuscular Volume 88.8 Mean Corpuscular Hemoglobin 30.4 Mean Corpuscular Hemoglobin Concent 34.2 Red Cell Distribution Width 17.0 H Platelet Count 235 Mean Platelet Volume 10.2 Neutrophils % 85.4 H Lymphocytes % 8.1 L Monocytes % 4.3 Eosinophils % 0.1 Basophils % 0.1 Nucleated Red Blood Cells % 0.0 Neutrophils # 11.4 H Lymphocytes # 1.1 Monocytes # 0.6 Eosinophils # 0.0 Basophils # 0.0 Nucleated Red Blood Cells # 0.0 Sodium Level 136 Potassium Level 3.4 L Chloride Level 104 Carbon Dioxide Level 20 L Anion Gap 15 Blood Urea Nitrogen 15 Creatinine 0.59 L Glucose Level 110 Calcium Level 7.9 L Magnesium Level 1.7 Total Bilirubin 1.8 #H Direct Bilirubin 0.80 #H Indirect Bilirubin 1.0 Aspartate Amino Transf (AST/SGOT) 44 # Alanine Aminotransferase (ALT/SGPT) 63 Alkaline Phosphatase 305 H Total Protein 4.9 #L Albumin 2.2 L Globulin 2.70 Albumin/Globulin Ratio 0.81 Medications Medications Current Medications Potassium Chloride/Sodium Chloride (NS-KCl 20 Meq) 1,000 ml @ 80 mls/hr [id number] IV Last administered on 07/06/16 09:19; Admin Dose 80 MLS/HR; Start at 16:18 Ondansetron HCl (Zofran Inj) 4 mg Q6H PRN IV NAUSEA AND/OR VOMITING Last administered on 07/06/16 12:10; Admin Dose 4 MG; Start 06/30/16 at 16:30 Acetaminophen (Tylenol Tab) 650 mg Q6H PRN PO PAIN LEVEL 1-3 OR FEVER Last administered on 07/05/16 19:31; Admin Dose 650 MG; Start 06/30/16 at 16:30 Acetaminophen (Tylenol Supp) 650 mg Q6H PRN [place] PAIN LEVEL 1-3 OR FEVER; Start 06/30/16 at 16:30 Acetaminophen/ Hydrocodone Bitart ([place] (5/325)) 1 tab Q6H PRN PO MODERATE PAIN LEVEL 4-6; Start 06/30/16 at 16:30 Acetaminophen/ Hydrocodone Bitart ([place] (5/325)) 2 tab Q6H PRN PO SEVERE PAIN LEVEL 7-10; Start 06/30/16 at 16:30 Morphine Sulfate (morphine) 2 mg Q4H PRN IV SEVERE PAIN LEVEL 7-10 Last administered on 07/05/16 05:48; Admin Dose 2 MG; Start 06/30/16 at 16:30 Docusate Sodium (Colace) 100 mg Q12H PRN PO CONSTIPATION; Start 06/30/16 at 16: 30 Magnesium Hydroxide (Milk Of Mag) 30 ml DAILY PRN PO CONSTIPATION; Start at 16:30 Bisacodyl (Dulcolax Supp) 10 mg DAILY PRN [place] CONSTIPATION; Start 06/30/16 at 16 :30 Pantoprazole 40 mg 40 mg DAILY@06 IV Last administered on 07/06/16 05:40; Admin Dose 40 MG; Start 07/01/16 at 06:00 Piperacillin Sod/ Tazobactam Sod (Zosyn 3.375gm/ 100 ml (Pmx)) 100 ml @ 200 mls /hr Q8 IVPB Last administered on 07/06/16 14:54; Admin Dose 200 MLS/HR; Start 06/30/16 at 22:30 Metoclopramide HCl (Reglan) 10 mg Q6 IV Last administered on 07/06/16 11:49; Admin Dose 10 MG; Start 07/03/16 at 18:00 SHANAE LEWIS MD July 06, 2016 15:09
[2016-07-06 15:37] VITALS: BP 133/79; RESP 17
--- NOTE | 2016-07-06 20:09 | CONS ---
Date/Time of Note Date/Time of Note DATE: 07/06/16 TIME: 20:08 Assessment/Plan Assessment/Plan Additional Assessment/Plan Additional Assessment/Plan IMPRESSION: 1. Biliary obstruction. 2. Gram negative bacteremia, either from the urine or from the biliary system. 3. 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 4. 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 Gastroparesis Plan PTC Reglan Liquid diet now PTC today with possible external drainage, done yesterday. Patient has a complete obstruction of the distal part of the bile duct. No dye entered into the duodenum Liver function has improved after external percutaneous biliary drainage Consultation Date/Type/Reason Admit Date/Time Jun 30, 2016 at 15:42 Initial Consult Date 06/30/16 Type of Consultation: hematology Referring Provider: GAMALIEL HAIR MD 24 HR Interval Summary Constitutional: improved, no complaints Exam/Review of Systems Vital Signs Vitals Vital Signs Date Time Temp Pulse Resp B/P Pulse Ox O2 Delivery O2 Flow Rate FiO2 07/06/16 15:37 99.0 87 17 133/79 95 07/05/16 16:47 Room Air 07/03/16 14:25 10.0 Intake and Output 07/05/16 07/05/16 07/06/16 14:59 22:59 06:59 Intake Total 2270 ml 1700 ml Output Total 60 ml 350 ml Balance 2210 ml 1350 ml Exam Constitutional: alert, oriented, well developed Psych: nl mood/affect, no complaints Head: atraumatic, normocephalic Eyes: EOMI, PERRL, nl conjunctiva, nl lids, nl sclera ENMT: nl external ears & nose, nl lips & teeth, nl nasal mucosa & septum Neck: non-tender, supple Respiratory: clear to auscultation, normal air movement Cardiovascular: nl pulses, regular rate and rhythm Gastrointestinal: nl liver, spleen, non-tender, soft Musculoskeletal: nl extremities to inspection, nl gait and stance Extremities: normal pulses Neurological: MIS SPECIALIST II-XII intact, nl mental status, nl speech, nl strength Skin: nl turgor, No rash or lesions Lymph: nl lymph nodes Results Result Diagram: 07/06/16 0655 07/06/16 0655 Results 24 hrs Laboratory Tests Test 07/06/16 06:55 White Blood Count 13.4 H Red Blood Count 3.49 L Hemoglobin 10.6 L Hematocrit 31.0 L Mean Corpuscular Volume 88.8 Mean Corpuscular Hemoglobin 30.4 Mean Corpuscular Hemoglobin Concent 34.2 Red Cell Distribution Width 17.0 H Platelet Count 235 Mean Platelet Volume 10.2 Neutrophils % 85.4 H Lymphocytes % 8.1 L Monocytes % 4.3 Eosinophils % 0.1 Basophils % 0.1 Nucleated Red Blood Cells % 0.0 Neutrophils # 11.4 H Lymphocytes # 1.1 Monocytes # 0.6 Eosinophils # 0.0 Basophils # 0.0 Nucleated Red Blood Cells # 0.0 Sodium Level 136 Potassium Level 3.4 L Chloride Level 104 Carbon Dioxide Level 20 L Anion Gap 15 Blood Urea Nitrogen 15 Creatinine 0.59 L Glucose Level 110 Calcium Level 7.9 L Magnesium Level 1.7 Total Bilirubin 1.8 #H Direct Bilirubin 0.80 #H Indirect Bilirubin 1.0 Aspartate Amino Transf (AST/SGOT) 44 # Alanine Aminotransferase (ALT/SGPT) 63 Alkaline Phosphatase 305 H Total Protein 4.9 #L Albumin 2.2 L Globulin 2.70 Albumin/Globulin Ratio 0.81 Medications Medications Current Medications Potassium Chloride/Sodium Chloride (NS-KCl 20 Meq) 1,000 ml @ 70 mls/hr [id number] IV Last administered on 07/06/16 09:19; Admin Dose 80 MLS/HR; Start at 16:18 Ondansetron HCl (Zofran Inj) 4 mg Q6H PRN IV NAUSEA AND/OR VOMITING Last administered on 07/06/16 12:10; Admin Dose 4 MG; Start 06/30/16 at 16:30 Acetaminophen (Tylenol Tab) 650 mg Q6H PRN PO PAIN LEVEL 1-3 OR FEVER Last administered on 07/05/16 19:31; Admin Dose 650 MG; Start 06/30/16 at 16:30 Acetaminophen (Tylenol Supp) 650 mg Q6H PRN [place] PAIN LEVEL 1-3 OR FEVER; Start 06/30/16 at 16:30 Acetaminophen/ Hydrocodone Bitart ([place] (5/325)) 1 tab Q6H PRN PO MODERATE PAIN LEVEL 4-6; Start 06/30/16 at 16:30 Acetaminophen/ Hydrocodone Bitart ([place] (5/325)) 2 tab Q6H PRN PO SEVERE PAIN LEVEL 7-10; Start 06/30/16 at 16:30 Morphine Sulfate (morphine) 2 mg Q4H PRN IV SEVERE PAIN LEVEL 7-10 Last administered on 07/05/16 05:48; Admin Dose 2 MG; Start 06/30/16 at 16:30 Docusate Sodium (Colace) 100 mg Q12H PRN PO CONSTIPATION; Start 06/30/16 at 16: 30 Magnesium Hydroxide (Milk Of Mag) 30 ml DAILY PRN PO CONSTIPATION; Start at 16:30 Bisacodyl (Dulcolax Supp) 10 mg DAILY PRN [place] CONSTIPATION; Start 06/30/16 at 16 :30 Pantoprazole 40 mg 40 mg DAILY@06 IV Last administered on 07/06/16 05:40; Admin Dose 40 MG; Start 07/01/16 at 06:00 Piperacillin Sod/ Tazobactam Sod (Zosyn 3.375gm/ 100 ml (Pmx)) 100 ml @ 200 mls /hr Q8 IVPB Last administered on 07/06/16 14:54; Admin Dose 200 MLS/HR; Start 06/30/16 at 22:30 Metoclopramide HCl (Reglan) 10 mg Q6 IV Last administered on 07/06/16 18:26; Admin Dose 10 MG; Start 07/03/16 at 18:00 TIANNA SALINAS MD July 06, 2016 20:09
[2016-07-06 20:12] VITALS: BP 141/73; RESP 18
[2016-07-06] MEDS: morphine 2 MG INJ IV PRN (20:32)
[2016-07-07 00:08] VITALS: BP 132/90; RESP 20
[2016-07-07] MEDS: METOCLOPRAMIDE 10 MG INJ IV SCH ×5 (00:26→23:35)
[2016-07-07] MEDS: morphine 2 MG INJ IV PRN (00:27)
[2016-07-07] MEDS: HYDROCODONE/APAP (5/325) TAB PO PRN ×3 (05:28→22:33)
[2016-07-07] MEDS: NS + KCL 20 MEQ 1,000 ML IV SCH ×2 (05:29→13:17)
[2016-07-07 05:41] LABS: ADD SCAN DIFF NO
[2016-07-07 05:44] LABS: BASOPHILS % 0.2 % (0.0-2.0); EOSINOPHILS # 0.1 10^3/ul (0.0-0.5); EOSINOPHILS % 0.9 % (0.0-7.0); HEMATOCRIT 28.4 % (42.0-52.0); HEMOGLOBIN 9.7 g/dl (14.0-18.0); LYMPHOCYTES # 1.1 10^3/ul (0.8-2.9); LYMPHOCYTES % 8.4 % (15.0-51.0); MEAN CORPUSCULAR HEMOGLOBIN 30.5 pg (29.0-33.0); MEAN CORPUSCULAR HGB CONC 34.2 g/dl (32.0-37.0); MEAN CORPUSCULAR VOLUME 89.3 fl (82.0-101.0); MEAN PLATELET VOLUME 9.7 fl (7.4-10.4); MONOCYTE # 0.7 10^3/ul (0.3-0.9); MONOCYTES % 5.8 % (0.0-11.0); NEUTROPHIL # 10.4 10^3/ul (1.6-7.5); NEUTROPHILS % 81.7 % (39.0-77.0); PLATELET COUNT 255 10^3/UL (140-415); RED BLOOD COUNT 3.18 10^6/ul (4.70-6.10); RED CELL DISTRIBUTION WIDTH 17.2 % (11.5-14.5); WHITE BLOOD COUNT 12.7 10^3/ul (4.8-10.8)
[2016-07-07] MEDS: PANTOPRAZOLE 40 MG INJ IV SCH (05:55)
[2016-07-07] MEDS: PIPER-TAZO 3.375 GM IV (PMX) 100 ML IVPB SCH ×3 (05:59→22:26)
[2016-07-07 06:02] LABS: INR 1.17; PARTIAL THROMBOPLASTIN TIME 35.9 Sec (25.0-35.0); PT RATIO 1.2
[2016-07-07 06:08] LABS: POTASSIUM 3.1 mmol/L (3.5-5.1)
[2016-07-07 06:10] LABS: CREATININE 0.53 mg/dl (0.61-1.24)
[2016-07-07 06:11] LABS: CALCIUM 7.8 mg/dl (8.4-10.2)
[2016-07-07] MEDS ORDERED: POTASSIUM CHLORIDE 250 ML IVPB ONE (07:00)
[2016-07-07 08:37] VITALS: BP 136/72; RESP 18
--- NOTE | 2016-07-07 12:11 | PN ---
DATE: 07/07/2016 INFECTIOUS DISEASE PROGRESS NOTE SUBJECTIVE: No acute events overnight. The patient is lying comfortably in bed and sleeping. at bedside. No fevers. No events. WBC 12.7, platelets 255, neutrophils 81.7, BUN 15, creatinine 0.53. MICROBIOLOGY: Urine culture on 07/06/2016 grew Chelsy albicans. ANTIMICROBIALS: The patient is on: 1. Fluconazole. 2. Zosyn. INDWELLINGS: Right chest Port-A-Cath, intra-abdominal drainage catheter. PHYSICAL EXAMINATION: GENERAL: This is a well-developed, fragile, elderly man, who is in no distress. HEENT: Head atraumatic, normocephalic. Sclerae anicteric. Buccal mucosa dry. NECK: Supple, trachea midline. CHEST: Chest rise is symmetrical. Breath sounds diminished to the bases. HEART: S1, S2. ABDOMEN: Soft, bowel tones present. EXTREMITIES: Without cyanosis. ASSESSMENT: 1. Status post Escherichia coli bacteremia. 2. Urinary tract infection, status post Pseudomonas aeruginosa. Repeat urine culture grew Chelsy albicans. 3. Biliary sepsis with biliary obstruction, status post unsuccessful ERCP and then fluoroscopic-adriano ded biliary drainage with catheter placement on 07/05/2016. 4. Right chest Port-A-Cath. 5. Metastatic urothelial cancer. 6. Diabetic gastroparesis. PLAN: The patient remains stable. Blood cultures repeated on 07/05/2016 have been negative. He is being followed by gastroenterology and oncology. Continue the present care and antibiotics. Dictated By: MARIELA ROBIN PATIENT SCHEDULING MANAGER for PENNY BARRIGA/NTS Conf#: [id number] DID#: [id number]
[2016-07-07] MEDS: FLUCONAZOLE 100 MG/NS (PMX) 50 ML IVPB SCH (13:16)
[2016-07-07] MEDS ORDERED: POTASSIUM CHLORIDE 20 MEQ in SOD CHLORIDE 0.9% 100 ML IVPB ONE (14:00)
[2016-07-07 15:05] VITALS: BP 136/76; PULSE 96; RESP 20
--- NOTE | 2016-07-07 17:08 | CONS ---
Date/Time of Note Date/Time of Note DATE: 07/07/16 TIME: 17:05 Assessment/Plan Assessment/Plan Chief Complaint/Hosp Course 60 year old male with metastatic urothelial cancer who had presented during the last admission with gastric outlet obstruction status post duodenal stent . It was initially thought GI primary and FOLFOX given 06/04/16 based on prelim path and severe obstructive symptoms, however further path review showed primary. Patient now readmitted with sepsis with abdominal pain. # metastatic urothelial cancer - CT A/P demonstrates infiltrative neoplasm involving the cecum, ascending colon and hepatic flexure with extension of tumor to the serosa involving the lateral wall of the duodenum. This has advanced as compared to 05/27/2016. - Dr Mercado had planned to start gemcitabine 1000 mg/m2 D1, 8 and carboplatin AUC 4.5 D1 however will have to hold off for now until sepsis resolves and bacteremia has been cleared and adequately treated with at least 14 days of antibiotics for bacteremia. Patient still has low grade fevers as of 07/05 at 8 p.m. - Dr. oNlan to arrange for POLST form to be filled out # E. coli bacteremia - with sepsis secondary to biliary obstruction s/p attempted unsuccessful ERCP 07/03, s/p external percutaneous biliary drainage 07/05 - Patient now on vanc/zosyn with GNR bacteremia. last blood cultures were clear from 07/05/16 - will hold on removing the port for now. If ID feels it is necessary to remove and if bacteremia does not clear, will remove at that time # Biliary obstruction - per GI, patient Bili is stable. - s/p percutaneous biliary drain given rise in bilirubin. T bili now down to 1.8 # Diabetic Gastroparesis - cont reglan Problems: Consultation Date/Type/Reason Admit Date/Time Jun 30, 2016 at 15:42 Initial Consult Date 06/30/16 Type of Consultation: Hematology Referring Provider: GAMALIEL HAIR MD 24 HR Interval Summary Free Text/Dictation Patient has some nausea but no fevers, overall feels better. Exam/Review of Systems Vital Signs Vitals Vital Signs Date Time Temp Pulse Resp B/P Pulse Ox O2 Delivery O2 Flow Rate FiO2 07/07/16 08:37 97.8 88 18 136/72 90 07/05/16 16:47 Room Air 07/03/16 14:25 10.0 Intake and Output 07/06/16 07/06/16 07/07/16 15:00 23:00 07:00 Intake Total 1200 ml 1278 ml Output Total 20 ml 50 ml 480 ml Balance -20 ml 1150 ml 798 ml Exam Constitutional: alert, frail, oriented Head: normocephalic Eyes: icteric, nl conjunctiva ENMT: nl external ears & nose Neck: non-tender, supple Respiratory: clear to auscultation, normal air movement Cardiovascular: regular rate and rhythm Gastrointestinal: soft Musculoskeletal: nl extremities to inspection, nl gait and stance Results Result Diagram: 07/07/16 0449 07/07/16 0449 Results 24 hrs Laboratory Tests Test 07/07/16 04:49 White Blood Count 12.7 H Red Blood Count 3.18 L Hemoglobin 9.7 L Hematocrit 28.4 L Mean Corpuscular Volume 89.3 Mean Corpuscular Hemoglobin 30.5 Mean Corpuscular Hemoglobin Concent 34.2 Red Cell Distribution Width 17.2 H Platelet Count 255 Mean Platelet Volume 9.7 Neutrophils % 81.7 H Lymphocytes % 8.4 L Monocytes % 5.8 Eosinophils % 0.9 Basophils % 0.2 Nucleated Red Blood Cells % 0.0 Neutrophils # 10.4 H Lymphocytes # 1.1 Monocytes # 0.7 Eosinophils # 0.1 Basophils # 0.0 Nucleated Red Blood Cells # 0.0 Prothrombin Time 15.0 H Prothrombin Time Ratio 1.2 INR International Normalized Ratio 1.17 Activated Partial Thromboplast Time 35.9 H Sodium Level 136 Potassium Level 3.1 L Chloride Level 103 Carbon Dioxide Level 22 Anion Gap 14 Blood Urea Nitrogen 15 Creatinine 0.53 L Glucose Level 96 Calcium Level 7.8 L Medications Medications Current Medications Potassium Chloride/Sodium Chloride (NS-KCl 20 Meq) 1,000 ml @ 70 mls/hr [id number] IV Last administered on 07/07/16 05:29; Admin Dose 70 MLS/HR; Start at 16:18 Ondansetron HCl (Zofran Inj) 4 mg Q6H PRN IV NAUSEA AND/OR VOMITING Last administered on 07/06/16 21:01; Admin Dose 4 MG; Start 06/30/16 at 16:30 Acetaminophen (Tylenol Tab) 650 mg Q6H PRN PO PAIN LEVEL 1-3 OR FEVER Last administered on 07/05/16 19:31; Admin Dose 650 MG; Start 06/30/16 at 16:30 Acetaminophen (Tylenol Supp) 650 mg Q6H PRN [place] PAIN LEVEL 1-3 OR FEVER; Start 06/30/16 at 16:30 Acetaminophen/ Hydrocodone Bitart ([place] (5/325)) 1 tab Q6H PRN PO MODERATE PAIN LEVEL 4-6 Last administered on 07/07/16 15:31; Admin Dose 1 TAB; Start at 16:30 Acetaminophen/ Hydrocodone Bitart ([place] (5/325)) 2 tab Q6H PRN PO SEVERE PAIN LEVEL 7-10; Start 06/30/16 at 16:30 Morphine Sulfate (morphine) 2 mg Q4H PRN IV SEVERE PAIN LEVEL 7-10 Last administered on 07/07/16 00:27; Admin Dose 2 MG; Start 06/30/16 at 16:30 Docusate Sodium (Colace) 100 mg Q12H PRN PO CONSTIPATION; Start 06/30/16 at 16: 30 Magnesium Hydroxide (Milk Of Mag) 30 ml DAILY PRN PO CONSTIPATION; Start at 16:30 Bisacodyl (Dulcolax Supp) 10 mg DAILY PRN [place] CONSTIPATION; Start 06/30/16 at 16 :30 Pantoprazole 40 mg 40 mg DAILY@06 IV Last administered on 07/07/16 05:55; Admin Dose 40 MG; Start 07/01/16 at 06:00 Piperacillin Sod/ Tazobactam Sod (Zosyn 3.375gm/ 100 ml (Pmx)) 100 ml @ 200 mls /hr Q8 IVPB Last administered on 07/07/16 14:24; Admin Dose 200 MLS/HR; Start 06/30/16 at 22:30 Metoclopramide HCl 10 mg 10 mg Q6 IV Last administered on 07/07/16 13:17; Admin Dose 10 MG; Start 07/03/16 at 18:00 Fluconazole/ Sodium Chloride (Diflucan 100 Mg/ NS (Pmx)) 50 ml @ 50 mls/hr Q24H IVPB Last administered on 07/07/16 13:16; Admin Dose 50 MLS/HR; Start 07/07/16 at 11:00 DARBY MERCADO MD July 07, 2016 17:08
--- NOTE | 2016-07-07 17:53 | PN ---
Date/Time of Note Date/Time of Note DATE: 07/07/16 TIME: 17:51 Assessment/Plan VTE Prophylaxis VTE Prophylaxis Intervention: heparin Lines/Catheters IV [facility] Peripheral IV Urinary Cath still in place: No Assessment/Plan Assessment/Plan 1. Sepsis 2nd biliary obstruction s/p attempted unsuccessful ERCP 07/03, biliary sepsis with E coli bacteremia - on IV abx, ID following 2. Transaminitis with Hyperbilirubinemia ? 2nd biliary obstruction ? 2nd tumor vs stent vs stone vs other -as above 3. Metastatic Urothelial cancer with ? carcinomatosis -heme/onc for tx after sepsis resolution 4. Hx obstructed duodenum with gastric outlet obstruction s/p duodenal stent 5. Steatosis -Eventual nutrition and lifestyle optimization 6. Weight loss probably secondary to above heparin for DVT prophylaxis IV abx zosyn IVF NS with KCL - decrease rate to 40cc/hr, pt still on full liquid diet, diet advancement as per GI KCl 20meQ IV x 1 extra dose [place] following patient,to decide for Plan for further treatment of cancer Subjective 24 Hr Interval Summary Free Text/Dictation tolerating clear liquid so far, BP stable,afebrile, K low Exam/Review of Systems Vital Signs Vitals Vital Signs Date Time Temp Pulse Resp B/P Pulse Ox O2 Delivery O2 Flow Rate FiO2 07/07/16 08:37 97.8 88 18 136/72 90 07/05/16 16:47 Room Air 07/03/16 14:25 10.0 Intake and Output 07/06/16 07/06/16 07/07/16 15:00 23:00 07:00 Intake Total 1200 ml 1278 ml Output Total 20 ml 50 ml 480 ml Balance -20 ml 1150 ml 798 ml Exam GENERAL: This is a well-developed elderly man who is awake, in no distress. HEENT: Head atraumatic, normocephalic. Sclerae anicteric. Buccal mucosa dry. NECK: Supple, trachea midline. CHEST: Rise symmetrical. Breath sounds diminished to bases. HEART: S1, S2. ABDOMEN: Soft. Bowel tones present. EXTREMITIES: Without cyanosis or edema. Results Result Diagram: 07/07/16 0449 07/07/16 0449 Results 24 hrs Laboratory Tests Test 07/07/16 04:49 White Blood Count 12.7 H Red Blood Count 3.18 L Hemoglobin 9.7 L Hematocrit 28.4 L Mean Corpuscular Volume 89.3 Mean Corpuscular Hemoglobin 30.5 Mean Corpuscular Hemoglobin Concent 34.2 Red Cell Distribution Width 17.2 H Platelet Count 255 Mean Platelet Volume 9.7 Neutrophils % 81.7 H Lymphocytes % 8.4 L Monocytes % 5.8 Eosinophils % 0.9 Basophils % 0.2 Nucleated Red Blood Cells % 0.0 Neutrophils # 10.4 H Lymphocytes # 1.1 Monocytes # 0.7 Eosinophils # 0.1 Basophils # 0.0 Nucleated Red Blood Cells # 0.0 Prothrombin Time 15.0 H Prothrombin Time Ratio 1.2 INR International Normalized Ratio 1.17 Activated Partial Thromboplast Time 35.9 H Sodium Level 136 Potassium Level 3.1 L Chloride Level 103 Carbon Dioxide Level 22 Anion Gap 14 Blood Urea Nitrogen 15 Creatinine 0.53 L Glucose Level 96 Calcium Level 7.8 L Medications Medications Current Medications Potassium Chloride/Sodium Chloride (NS-KCl 20 Meq) 1,000 ml @ 70 mls/hr [id number] IV Last administered on 07/07/16 05:29; Admin Dose 70 MLS/HR; Start at 16:18 Ondansetron HCl (Zofran Inj) 4 mg Q6H PRN IV NAUSEA AND/OR VOMITING Last administered on 07/06/16 21:01; Admin Dose 4 MG; Start 06/30/16 at 16:30 Acetaminophen (Tylenol Tab) 650 mg Q6H PRN PO PAIN LEVEL 1-3 OR FEVER Last administered on 07/05/16 19:31; Admin Dose 650 MG; Start 06/30/16 at 16:30 Acetaminophen (Tylenol Supp) 650 mg Q6H PRN [place] PAIN LEVEL 1-3 OR FEVER; Start 06/30/16 at 16:30 Acetaminophen/ Hydrocodone Bitart ([place] (5/325)) 1 tab Q6H PRN PO MODERATE PAIN LEVEL 4-6 Last administered on 07/07/16 15:31; Admin Dose 1 TAB; Start at 16:30 Acetaminophen/ Hydrocodone Bitart ([place] (5/325)) 2 tab Q6H PRN PO SEVERE PAIN LEVEL 7-10; Start 06/30/16 at 16:30 Morphine Sulfate (morphine) 2 mg Q4H PRN IV SEVERE PAIN LEVEL 7-10 Last administered on 07/07/16 00:27; Admin Dose 2 MG; Start 06/30/16 at 16:30 Docusate Sodium (Colace) 100 mg Q12H PRN PO CONSTIPATION; Start 06/30/16 at 16: 30 Magnesium Hydroxide (Milk Of Mag) 30 ml DAILY PRN PO CONSTIPATION; Start at 16:30 Bisacodyl (Dulcolax Supp) 10 mg DAILY PRN [place] CONSTIPATION; Start 06/30/16 at 16 :30 Pantoprazole 40 mg 40 mg DAILY@06 IV Last administered on 07/07/16 05:55; Admin Dose 40 MG; Start 07/01/16 at 06:00 Piperacillin Sod/ Tazobactam Sod (Zosyn 3.375gm/ 100 ml (Pmx)) 100 ml @ 200 mls /hr Q8 IVPB Last administered on 07/07/16 14:24; Admin Dose 200 MLS/HR; Start 06/30/16 at 22:30 Metoclopramide HCl 10 mg 10 mg Q6 IV Last administered on 07/07/16 13:17; Admin Dose 10 MG; Start 07/03/16 at 18:00 Fluconazole/ Sodium Chloride (Diflucan 100 Mg/ NS (Pmx)) 50 ml @ 50 mls/hr Q24H IVPB Last administered on 07/07/16 13:16; Admin Dose 50 MLS/HR; Start 07/07/16 at 11:00 SHANAE LEWIS MD July 07, 2016 17:53
[2016-07-07 19:40] VITALS: BP 131/73; RESP 20
--- NOTE | 2016-07-07 19:41 | CONS ---
Date/Time of Note Date/Time of Note DATE: 07/07/16 TIME: 19:40 Assessment/Plan Assessment/Plan Additional Assessment/Plan IMPRESSION: 1. Biliary obstruction. 2. Gram negative bacteremia, either from the urine or from the biliary system. 3. 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 4. 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 Gastroparesis Plan PTC Reglan Liquid diet now PTC today with possible external drainage, done yesterday. Patient has a complete obstruction of the distal part of the bile duct. No dye entered into the duodenum Liver function has improved after external percutaneous biliary drainage aspiration precaution Consultation Date/Type/Reason Admit Date/Time Jun 30, 2016 at 15:42 Initial Consult Date 06/30/16 Type of Consultation: Hematology Referring Provider: GAMALIEL HAIR MD 24 HR Interval Summary Free Text/Dictation emesis once Constitutional: improved Exam/Review of Systems Vital Signs Vitals Vital Signs Date Time Temp Pulse Resp B/P Pulse Ox O2 Delivery O2 Flow Rate FiO2 07/07/16 08:37 97.8 88 18 136/72 90 07/05/16 16:47 Room Air 07/03/16 14:25 10.0 Intake and Output 07/06/16 07/06/16 07/07/16 15:00 23:00 07:00 Intake Total 1200 ml 1278 ml Output Total 20 ml 50 ml 480 ml Balance -20 ml 1150 ml 798 ml Exam Constitutional: alert, oriented, well developed Psych: nl mood/affect, no complaints Head: atraumatic, normocephalic Eyes: EOMI, PERRL, nl conjunctiva, nl lids, nl sclera ENMT: nl external ears & nose, nl lips & teeth, nl nasal mucosa & septum Neck: non-tender, supple Respiratory: clear to auscultation, normal air movement Cardiovascular: nl pulses, regular rate and rhythm Gastrointestinal: nl liver, spleen, non-tender, soft Musculoskeletal: nl extremities to inspection, nl gait and stance Extremities: normal pulses Neurological: AUTOMOTIVE TITLE CLERK II-XII intact, nl mental status, nl speech, nl strength Skin: nl turgor, No rash or lesions Lymph: nl lymph nodes Results Result Diagram: 07/07/16 0449 07/07/16 0449 Results 24 hrs Laboratory Tests Test 07/07/16 04:49 White Blood Count 12.7 H Red Blood Count 3.18 L Hemoglobin 9.7 L Hematocrit 28.4 L Mean Corpuscular Volume 89.3 Mean Corpuscular Hemoglobin 30.5 Mean Corpuscular Hemoglobin Concent 34.2 Red Cell Distribution Width 17.2 H Platelet Count 255 Mean Platelet Volume 9.7 Neutrophils % 81.7 H Lymphocytes % 8.4 L Monocytes % 5.8 Eosinophils % 0.9 Basophils % 0.2 Nucleated Red Blood Cells % 0.0 Neutrophils # 10.4 H Lymphocytes # 1.1 Monocytes # 0.7 Eosinophils # 0.1 Basophils # 0.0 Nucleated Red Blood Cells # 0.0 Prothrombin Time 15.0 H Prothrombin Time Ratio 1.2 INR International Normalized Ratio 1.17 Activated Partial Thromboplast Time 35.9 H Sodium Level 136 Potassium Level 3.1 L Chloride Level 103 Carbon Dioxide Level 22 Anion Gap 14 Blood Urea Nitrogen 15 Creatinine 0.53 L Glucose Level 96 Calcium Level 7.8 L Medications Medications Current Medications Potassium Chloride/Sodium Chloride (NS-KCl 20 Meq) 1,000 ml @ 70 mls/hr [id number] IV Last administered on 07/07/16 05:29; Admin Dose 70 MLS/HR; Start at 16:18 Ondansetron HCl (Zofran Inj) 4 mg Q6H PRN IV NAUSEA AND/OR VOMITING Last administered on 07/06/16 21:01; Admin Dose 4 MG; Start 06/30/16 at 16:30 Acetaminophen (Tylenol Tab) 650 mg Q6H PRN PO PAIN LEVEL 1-3 OR FEVER Last administered on 07/05/16 19:31; Admin Dose 650 MG; Start 06/30/16 at 16:30 Acetaminophen (Tylenol Supp) 650 mg Q6H PRN [place] PAIN LEVEL 1-3 OR FEVER; Start 06/30/16 at 16:30 Acetaminophen/ Hydrocodone Bitart ([place] (5/325)) 1 tab Q6H PRN PO MODERATE PAIN LEVEL 4-6 Last administered on 07/07/16 15:31; Admin Dose 1 TAB; Start at 16:30 Acetaminophen/ Hydrocodone Bitart ([place] (5/325)) 2 tab Q6H PRN PO SEVERE PAIN LEVEL 7-10; Start 06/30/16 at 16:30 Morphine Sulfate (morphine) 2 mg Q4H PRN IV SEVERE PAIN LEVEL 7-10 Last administered on 07/07/16 00:27; Admin Dose 2 MG; Start 06/30/16 at 16:30 Docusate Sodium (Colace) 100 mg Q12H PRN PO CONSTIPATION; Start 06/30/16 at 16: 30 Magnesium Hydroxide (Milk Of Mag) 30 ml DAILY PRN PO CONSTIPATION; Start at 16:30 Bisacodyl (Dulcolax Supp) 10 mg DAILY PRN [place] CONSTIPATION; Start 06/30/16 at 16 :30 Pantoprazole 40 mg 40 mg DAILY@06 IV Last administered on 07/07/16 05:55; Admin Dose 40 MG; Start 07/01/16 at 06:00 Piperacillin Sod/ Tazobactam Sod (Zosyn 3.375gm/ 100 ml (Pmx)) 100 ml @ 200 mls /hr Q8 IVPB Last administered on 07/07/16 14:24; Admin Dose 200 MLS/HR; Start 06/30/16 at 22:30 Metoclopramide HCl 10 mg 10 mg Q6 IV Last administered on 07/07/16 18:10; Admin Dose 10 MG; Start 07/03/16 at 18:00 Fluconazole/ Sodium Chloride (Diflucan 100 Mg/ NS (Pmx)) 50 ml @ 50 mls/hr Q24H IVPB Last administered on 07/07/16 13:16; Admin Dose 50 MLS/HR; Start 07/07/16 at 11:00 TIANNA SALINAS MD July 07, 2016 19:41
[2016-07-07] MEDS: ONDANSETRON 4 MG INJ IV PRN (20:54)
--- NOTE | 2016-07-08 01:06 | PN ---
Date/Time of Note Date/Time of Note DATE: 07/06/16 TIME: 20:58 Assessment/Plan Lines/Catheters IV Catheter Type (from [facility]): Peripheral IV [place] in Place (from [facility]): No Assessment/Plan Chief Complaint/Hosp Course 1. Sepsis 2nd biliary obstruction s/p attempted unsuccessful ERCP 07/03. s/p PTC 07/05 -abx -ivf -supportive care -Drain 2. Transaminitis with Hyperbilirubinemia ? 2nd biliary obstruction ? 2nd tumor s /p PTC 07/05 -as above 3. Metastatic Urothelial cancer with ? carcinomatosis -heme/onc for tx after sepsis resolution 4. Hx obstructed duodenum with gastric outlet obstruction s/p duodenal stent 5. Steatosis -Eventual nutrition and lifestyle optimization 6. Weight loss probably secondary to above -As above Thank you, Late entry 07/06 Problems: Subjective 24 Hr Interval Summary s/p PTC 07/05. No f/c. Min abdominal pain. No chest pain or shortness of breath. No cough. No seizure. No headache, visual, or neurologic changes. No dysuria. Leukocytosis. LFTs improving. Exam/Review of Systems Vital Signs Vitals Vital Signs Date Time Temp Pulse Resp B/P Pulse Ox O2 Delivery O2 Flow Rate FiO2 07/07/16 19:40 98.3 77 20 131/73 94 07/05/16 16:47 Room Air Intake and Output 07/07/16 07/07/16 07/08/16 15:00 23:00 07:00 Intake Total 300 ml 1460 ml Output Total 350 ml 200 ml Balance 300 ml 1110 ml -200 ml Exam Free Text/Dictation Constitutional: alert, oriented, No distress Psych: nl mood/affect, No anxiety, No confusion Head: atraumatic, normocephalic Eyes: EOMI, PERRL, nl conjunctiva, icterus ENMT: mucosa pink and moist, nl external ears & nose, nl lips & teeth Neck: non-tender, supple, No jvd, No masses Respiratory: normal air movement, No congested cough, No labored breathing Cardiovascular: regular rate and rhythm, No edema Gastrointestinal: min-tender, soft, No distended, No rebound or guarding Genitourinary - Male: nl scrotum Musculoskeletal: nl extremities to inspection, nl gait and stance, No joint tenderness Extremities: normal pulses, No calf tenderness, No cyanosis Neurological: nl mental status, nl speech, nl strength Skin: nl turgor, jaundice No diaphoresis, No rash or lesions Lymph: No nl lymph nodes (Inguinal) Results Result Diagram: 07/07/16 0449 07/07/16 0449 DIAMOND FITZGERALD MD July 08, 2016 01:06
--- NOTE | 2016-07-08 01:07 | PN ---
Date/Time of Note Date/Time of Note DATE: 07/07/16 TIME: 21:06 Assessment/Plan Lines/Catheters IV Catheter Type (from [facility]): Peripheral IV [place] in Place (from [facility]): No Assessment/Plan Chief Complaint/Hosp Course 1. Sepsis 2nd biliary obstruction s/p attempted unsuccessful ERCP 07/03. s/p PTC 07/05 -abx -ivf -supportive care -Drain 2. Transaminitis with Hyperbilirubinemia ? 2nd biliary obstruction ? 2nd tumor s /p PTC 07/05 -as above 3. Metastatic Urothelial cancer with ? carcinomatosis -heme/onc for tx after sepsis resolution 4. Hx obstructed duodenum with gastric outlet obstruction s/p duodenal stent 5. Steatosis -Eventual nutrition and lifestyle optimization 6. Weight loss probably secondary to above -As above Thank you, Late entry 07/07 Problems: Subjective 24 Hr Interval Summary s/p PTC 07/05. No f/c. Min abdominal pain. No chest pain or shortness of breath. No cough. No seizure. No headache, visual, or neurologic changes. No dysuria. Leukocytosis. LFTs improving. Exam/Review of Systems Vital Signs Vitals Vital Signs Date Time Temp Pulse Resp B/P Pulse Ox O2 Delivery O2 Flow Rate FiO2 07/07/16 19:40 98.3 77 20 131/73 94 07/05/16 16:47 Room Air Intake and Output 07/07/16 07/07/16 07/08/16 15:00 23:00 07:00 Intake Total 300 ml 1460 ml Output Total 350 ml 200 ml Balance 300 ml 1110 ml -200 ml Exam Free Text/Dictation Constitutional: alert, oriented, No distress Psych: nl mood/affect, No anxiety, No confusion Head: atraumatic, normocephalic Eyes: EOMI, PERRL, nl conjunctiva, icterus ENMT: mucosa pink and moist, nl external ears & nose, nl lips & teeth Neck: non-tender, supple, No jvd, No masses Respiratory: normal air movement, No congested cough, No labored breathing Cardiovascular: regular rate and rhythm, No edema Gastrointestinal: min-tender, soft, No distended, No rebound or guarding Genitourinary - Male: nl scrotum Musculoskeletal: nl extremities to inspection, nl gait and stance, No joint tenderness Extremities: normal pulses, No calf tenderness, No cyanosis Neurological: nl mental status, nl speech, nl strength Skin: nl turgor, jaundice No diaphoresis, No rash or lesions Lymph: No nl lymph nodes (Inguinal) Results Result Diagram: 07/07/16 0449 07/07/16 0449 DIAMOND FITZGERALD MD July 08, 2016 01:06
[2016-07-08] MEDS: NS + KCL 20 MEQ 1,000 ML IV SCH ×2 (05:10→18:13)
[2016-07-08] MEDS: PANTOPRAZOLE 40 MG INJ IV SCH (05:39)
[2016-07-08] MEDS: PIPER-TAZO 3.375 GM IV (PMX) 100 ML IVPB SCH ×3 (05:39→22:45)
[2016-07-08] MEDS: METOCLOPRAMIDE 10 MG INJ IV SCH ×4 (05:39→23:30)
[2016-07-08 05:53] LABS: ADD SCAN DIFF NO
[2016-07-08 06:29] LABS: BASOPHILS % 0.2 % (0.0-2.0); EOSINOPHILS # 0.2 10^3/ul (0.0-0.5); EOSINOPHILS % 1.7 % (0.0-7.0); HEMATOCRIT 32.2 % (42.0-52.0); HEMOGLOBIN 10.6 g/dl (14.0-18.0); LYMPHOCYTES # 1.6 10^3/ul (0.8-2.9); LYMPHOCYTES % 14.8 % (15.0-51.0); MEAN CORPUSCULAR HEMOGLOBIN 29.5 pg (29.0-33.0); MEAN CORPUSCULAR HGB CONC 32.9 g/dl (32.0-37.0); MEAN CORPUSCULAR VOLUME 89.7 fl (82.0-101.0); MEAN PLATELET VOLUME 9.7 fl (7.4-10.4); MONOCYTE # 0.7 10^3/ul (0.3-0.9); NEUTROPHIL # 8.1 10^3/ul (1.6-7.5); NEUTROPHILS % 74.4 % (39.0-77.0); PLATELET COUNT 319 10^3/UL (140-415); RED BLOOD COUNT 3.59 10^6/ul (4.70-6.10); RED CELL DISTRIBUTION WIDTH 17.4 % (11.5-14.5); WHITE BLOOD COUNT 10.9 10^3/ul (4.8-10.8)
[2016-07-08 06:46] LABS: INR 1.08; PT RATIO 1.1
[2016-07-08 06:47] LABS: PARTIAL THROMBOPLASTIN TIME 35.2 Sec (25.0-35.0)
[2016-07-08 06:50] LABS: POTASSIUM 3.4 mmol/L (3.5-5.1)
[2016-07-08 06:53] LABS: CREATININE 0.52 mg/dl (0.61-1.24)
[2016-07-08 06:54] LABS: CALCIUM 7.9 mg/dl (8.4-10.2)
[2016-07-08 08:14] VITALS: BP 134/71; RESP 18
[2016-07-08] MEDS: FLUCONAZOLE 100 MG/NS (PMX) 50 ML IVPB SCH (10:56)
[2016-07-08] MEDS: HYDROCODONE/APAP (5/325) TAB PO PRN ×2 (11:01→17:17)
[2016-07-08] MEDS: ONDANSETRON 4 MG INJ IV PRN ×2 (13:50→20:22)
--- NOTE | 2016-07-08 14:08 | PN ---
DATE: 07/08/2016 SUBJECTIVE: Patient is awake, complaining of nausea and on and off emesis. He is in no distress. No fevers, no diarrhea. LABORATORY DATA: WBC 10.9, no shift, no bands. BUN 13, creatinine 0.52. MICROBIOLOGY: Body fluid cultures preliminary negative. ANTIMICROBIALS: The patient remains on: 1. Zosyn. 2. Fluconazole. INDWELLINGS: Right chest Port-A-Cath, intra-abdominal drainage ____. PHYSICAL EXAMINATION: GENERAL: Well-developed, fragile, elderly man who is awake, in no distress. HEENT: Head atraumatic, normocephalic. Sclerae anicteric. Buccal mucosa dry. NECK: Supple, trachea midline. CHEST: Rise symmetrical. Breath sounds clear. HEART: S1, S2. ABDOMEN: Soft. Bowel tones present. EXTREMITIES: Without cyanosis. ASSESSMENT: 1. Sepsis secondary to biliary obstruction, status post unsuccessful attempt at endoscopic retrogra de cholangiopancreatography on July 03 status post percutaneous transhepatic cholangiography on 04/2016. 2. Pseudomonas aeruginosa urinary tract infection. 3. Escherichia coli bacteremia secondary to #1. 4. Repeat Chelsy albicans urinary tract infection. 5. Right chest Port-A-Cath. 6. Metastatic urothelial cancer. 7. Diabetic gastroparesis. PLAN: The patient remains stable. He is being followed by multiple consultants. Repeat blood cult ures negative. Continue on current antimicrobials. Dictated By: MARIELA ROBIN TASSEL MAKER for PENNY BARRIGA/ANN MARIE Conf#: [id number] DID#: [id number]
--- NOTE | 2016-07-08 15:52 | PN ---
Date/Time of Note Date/Time of Note DATE: 07/08/16 TIME: 15:51 Assessment/Plan Lines/Catheters IV Catheter Type (from [facility]): Peripheral IV [place] in Place (from [facility]): No Assessment/Plan Chief Complaint/Hosp Course 1. Sepsis 2nd biliary obstruction s/p attempted unsuccessful ERCP 07/03. s/p PTC 07/05 -abx -ivf -supportive care -Drain 2. Transaminitis with Hyperbilirubinemia ? 2nd biliary obstruction ? 2nd tumor s /p PTC 07/05 -as above 3. Metastatic Urothelial cancer with ? carcinomatosis -heme/onc for tx after sepsis resolution 4. Hx obstructed duodenum with gastric outlet obstruction s/p duodenal stent 5. Steatosis -Eventual nutrition and lifestyle optimization 6. Weight loss probably secondary to above -As above Thank you, Problems: Subjective 24 Hr Interval Summary s/p PTC 07/05. No f/c. Min abdominal pain. No chest pain or shortness of breath. No cough. No seizure. No headache, visual, or neurologic changes. No dysuria. Leukocytosis improving. LFTs improving. Exam/Review of Systems Vital Signs Vitals Vital Signs Date Time Temp Pulse Resp B/P Pulse Ox O2 Delivery O2 Flow Rate FiO2 07/08/16 08:14 97.8 93 18 134/71 92 07/07/16 15:05 Room Air 07/05/16 16:00 2 Intake and Output 07/07/16 07/07/16 07/08/16 15:00 23:00 07:00 Intake Total 300 ml 1460 ml 1320 ml Output Total 350 ml 1100 ml Balance 300 ml 1110 ml 220 ml Exam Free Text/Dictation Constitutional: alert, oriented, No distress Psych: nl mood/affect, No anxiety, No confusion Head: atraumatic, normocephalic Eyes: EOMI, PERRL, nl conjunctiva, icterus ENMT: mucosa pink and moist, nl external ears & nose, nl lips & teeth Neck: non-tender, supple, No jvd, No masses Respiratory: normal air movement, No congested cough, No labored breathing Cardiovascular: regular rate and rhythm, No edema Gastrointestinal: min-tender, soft, No distended, No rebound or guarding Genitourinary - Male: nl scrotum Musculoskeletal: nl extremities to inspection, nl gait and stance, No joint tenderness Extremities: normal pulses, No calf tenderness, No cyanosis Neurological: nl mental status, nl speech, nl strength Skin: nl turgor, jaundice No diaphoresis, No rash or lesions Lymph: No nl lymph nodes (Inguinal) Results Result Diagram: 07/08/16 0509 07/08/16 0509 DIAMOND FITZGERALD MD July 08, 2016 15:52
--- NOTE | 2016-07-08 17:20 | PN ---
Date/Time of Note Date/Time of Note DATE: 07/08/16 TIME: 17:20 Assessment/Plan VTE Prophylaxis VTE Prophylaxis Intervention: heparin Lines/Catheters IV [facility]ter Type (from [email or web address] Peripheral IV Urinary Cath still in place: No Assessment/Plan Assessment/Plan 1. Sepsis 2nd biliary obstruction s/p attempted unsuccessful ERCP 07/03, biliary sepsis with E coli bacteremia - on IV abx, ID following 2. Transaminitis with Hyperbilirubinemia ? 2nd biliary obstruction ? 2nd tumor vs stent vs stone vs other -as above 3. Metastatic Urothelial cancer with ? carcinomatosis -heme/onc for tx after sepsis resolution 4. Hx obstructed duodenum with gastric outlet obstruction s/p duodenal stent 5. Steatosis -Eventual nutrition and lifestyle optimization 6. Weight loss probably secondary to above heparin for DVT prophylaxis IV abx zosyn IVF NS with KCL - decrease rate to 40cc/hr, pt still on full liquid diet, diet advancement as per GI KCl 20meQ IV x 1 extra dose [place] following patient,to decide for Plan for further treatment of cancer Subjective 24 Hr Interval Summary Free Text/Dictation still c/o abdo pain, on liquid diet Exam/Review of Systems Vital Signs Vitals Vital Signs Date Time Temp Pulse Resp B/P Pulse Ox O2 Delivery O2 Flow Rate FiO2 07/08/16 08:14 97.8 93 18 134/71 92 07/07/16 15:05 Room Air 07/05/16 16:00 2 Intake and Output 07/07/16 07/07/16 07/08/16 15:00 23:00 07:00 Intake Total 300 ml 1460 ml 1320 ml Output Total 350 ml 1100 ml Balance 300 ml 1110 ml 220 ml Exam GENERAL: This is a well-developed elderly man who is awake, in no distress. HEENT: Head atraumatic, normocephalic. Sclerae anicteric. Buccal mucosa dry. NECK: Supple, trachea midline. CHEST: Rise symmetrical. Breath sounds diminished to bases. HEART: S1, S2. ABDOMEN: Soft. Bowel tones present. EXTREMITIES: Without cyanosis or edema. Results Result Diagram: 07/08/16 0509 07/08/16 0509 Results 24 hrs Laboratory Tests Test 07/08/16 05:09 White Blood Count 10.9 H Red Blood Count 3.59 L Hemoglobin 10.6 L Hematocrit 32.2 L Mean Corpuscular Volume 89.7 Mean Corpuscular Hemoglobin 29.5 Mean Corpuscular Hemoglobin Concent 32.9 Red Cell Distribution Width 17.4 H Platelet Count 319 # Mean Platelet Volume 9.7 Neutrophils % 74.4 Lymphocytes % 14.8 L Monocytes % 6.0 Eosinophils % 1.7 Basophils % 0.2 Nucleated Red Blood Cells % 0.0 Neutrophils # 8.1 H Lymphocytes # 1.6 Monocytes # 0.7 Eosinophils # 0.2 Basophils # 0.0 Nucleated Red Blood Cells # 0.0 Prothrombin Time 14.0 Prothrombin Time Ratio 1.1 INR International Normalized Ratio 1.08 Activated Partial Thromboplast Time 35.2 H Sodium Level 134 L Potassium Level 3.4 L Chloride Level 101 Carbon Dioxide Level 22 Anion Gap 14 Blood Urea Nitrogen 13 Creatinine 0.52 L Glucose Level 85 Calcium Level 7.9 L Medications Medications Current Medications Potassium Chloride/Sodium Chloride (NS-KCl 20 Meq) 1,000 ml @ 70 mls/hr [id number] IV Last administered on 07/08/16 05:10; Admin Dose 70 MLS/HR; Start at 16:18 Ondansetron HCl (Zofran Inj) 4 mg Q6H PRN IV NAUSEA AND/OR VOMITING Last administered on 07/08/16 13:50; Admin Dose 4 MG; Start 06/30/16 at 16:30 Acetaminophen (Tylenol Tab) 650 mg Q6H PRN PO PAIN LEVEL 1-3 OR FEVER Last administered on 07/05/16 19:31; Admin Dose 650 MG; Start 06/30/16 at 16:30 Acetaminophen (Tylenol Supp) 650 mg Q6H PRN [place] PAIN LEVEL 1-3 OR FEVER; Start 06/30/16 at 16:30 Acetaminophen/ Hydrocodone Bitart ([place] (5/325)) 1 tab Q6H PRN PO MODERATE PAIN LEVEL 4-6 Last administered on 07/08/16 11:01; Admin Dose 1 TAB; Start at 16:30 Acetaminophen/ Hydrocodone Bitart ([place] (5/325)) 2 tab Q6H PRN PO SEVERE PAIN LEVEL 7-10; Start 06/30/16 at 16:30 Morphine Sulfate (morphine) 2 mg Q4H PRN IV SEVERE PAIN LEVEL 7-10 Last administered on 07/07/16 00:27; Admin Dose 2 MG; Start 06/30/16 at 16:30 Docusate Sodium (Colace) 100 mg Q12H PRN PO CONSTIPATION; Start 06/30/16 at 16: 30 Magnesium Hydroxide (Milk Of Mag) 30 ml DAILY PRN PO CONSTIPATION; Start at 16:30 Bisacodyl (Dulcolax Supp) 10 mg DAILY PRN [place] CONSTIPATION; Start 06/30/16 at 16 :30 Pantoprazole 40 mg 40 mg DAILY@06 IV Last administered on 07/08/16 05:39; Admin Dose 40 MG; Start 07/01/16 at 06:00 Piperacillin Sod/ Tazobactam Sod (Zosyn 3.375gm/ 100 ml (Pmx)) 100 ml @ 200 mls /hr Q8 IVPB Last administered on 07/08/16 13:50; Admin Dose 200 MLS/HR; Start 06/30/16 at 22:30 Metoclopramide HCl 10 mg 10 mg Q6 IV Last administered on 07/08/16 17:09; Admin Dose 10 MG; Start 07/03/16 at 18:00 Fluconazole/ Sodium Chloride (Diflucan 100 Mg/ NS (Pmx)) 50 ml @ 50 mls/hr Q24H IVPB Last administered on 07/08/16 10:56; Admin Dose 50 MLS/HR; Start 07/07/16 at 11:00 SHANAE LEWIS MD July 08, 2016 17:20
--- NOTE | 2016-07-08 17:57 | CONS ---
Date/Time of Note Date/Time of Note DATE: 07/08/16 TIME: 17:56 Assessment/Plan Assessment/Plan Chief Complaint/Hosp Course 60 year old male with metastatic urothelial cancer who had presented during the last admission with gastric outlet obstruction status post duodenal stent . It was initially thought GI primary and FOLFOX given 06/04/16 based on prelim path and severe obstructive symptoms, however further path review showed primary. Patient now readmitted with sepsis with abdominal pain. # metastatic urothelial cancer - CT A/P demonstrates infiltrative neoplasm involving the cecum, ascending colon and hepatic flexure with extension of tumor to the serosa involving the lateral wall of the duodenum. This has advanced as compared to 05/27/2016. - I had planned to start gemcitabine 1000 mg/m2 D1, 8 and carboplatin AUC 4.5 D1 however will have to hold off for now until adequately treated with at least 14 days of antibiotics for bacteremia. Patient still has low grade fevers as of 07/05 at 8 p.m. - Dr. Nolan to arrange for POLST form to be filled out # E. coli bacteremia - with sepsis secondary to biliary obstruction s/p attempted unsuccessful ERCP 07/03, s/p external percutaneous biliary drainage 07/05 - Patient now on vanc/zosyn with GNR bacteremia. Last blood cultures were clear from 07/05/16 - will hold on removing the port for now. If ID feels it is necessary to remove and if bacteremia does not clear, will remove at that time # Biliary obstruction - per GI, patient Bili is stable. - s/p percutaneous biliary drain given rise in bilirubin. T bili now down to 1.8 # Diabetic Gastroparesis - cont reglan Problems: Consultation Date/Type/Reason Admit Date/Time Jun 30, 2016 at 15:42 Initial Consult Date 06/30/16 Type of Consultation: Hematology Referring Provider: GAMALIEL HAIR MD 24 HR Interval Summary Free Text/Dictation Patient feeling better, denies fevers. Exam/Review of Systems Vital Signs Vitals Vital Signs Date Time Temp Pulse Resp B/P Pulse Ox O2 Delivery O2 Flow Rate FiO2 07/08/16 08:14 97.8 93 18 134/71 92 07/07/16 15:05 Room Air 07/05/16 16:00 2 Intake and Output 07/07/16 07/07/16 07/08/16 15:00 23:00 07:00 Intake Total 300 ml 1460 ml 1320 ml Output Total 350 ml 1100 ml Balance 300 ml 1110 ml 220 ml Exam Constitutional: alert, frail, oriented Head: normocephalic Eyes: icteric, nl conjunctiva ENMT: nl external ears & nose Neck: non-tender, supple Respiratory: clear to auscultation, normal air movement Cardiovascular: regular rate and rhythm Gastrointestinal: soft Musculoskeletal: nl extremities to inspection, nl gait and stance Results Result Diagram: 07/08/16 0509 07/08/16 0509 Results 24 hrs Laboratory Tests Test 07/08/16 05:09 White Blood Count 10.9 H Red Blood Count 3.59 L Hemoglobin 10.6 L Hematocrit 32.2 L Mean Corpuscular Volume 89.7 Mean Corpuscular Hemoglobin 29.5 Mean Corpuscular Hemoglobin Concent 32.9 Red Cell Distribution Width 17.4 H Platelet Count 319 # Mean Platelet Volume 9.7 Neutrophils % 74.4 Lymphocytes % 14.8 L Monocytes % 6.0 Eosinophils % 1.7 Basophils % 0.2 Nucleated Red Blood Cells % 0.0 Neutrophils # 8.1 H Lymphocytes # 1.6 Monocytes # 0.7 Eosinophils # 0.2 Basophils # 0.0 Nucleated Red Blood Cells # 0.0 Prothrombin Time 14.0 Prothrombin Time Ratio 1.1 INR International Normalized Ratio 1.08 Activated Partial Thromboplast Time 35.2 H Sodium Level 134 L Potassium Level 3.4 L Chloride Level 101 Carbon Dioxide Level 22 Anion Gap 14 Blood Urea Nitrogen 13 Creatinine 0.52 L Glucose Level 85 Calcium Level 7.9 L Medications Medications Current Medications Potassium Chloride/Sodium Chloride (NS-KCl 20 Meq) 1,000 ml @ 70 mls/hr [id number] IV Last administered on 07/08/16 05:10; Admin Dose 70 MLS/HR; Start at 16:18 Ondansetron HCl (Zofran Inj) 4 mg Q6H PRN IV NAUSEA AND/OR VOMITING Last administered on 07/08/16 13:50; Admin Dose 4 MG; Start 06/30/16 at 16:30 Acetaminophen (Tylenol Tab) 650 mg Q6H PRN PO PAIN LEVEL 1-3 OR FEVER Last administered on 07/05/16 19:31; Admin Dose 650 MG; Start 06/30/16 at 16:30 Acetaminophen (Tylenol Supp) 650 mg Q6H PRN [place] PAIN LEVEL 1-3 OR FEVER; Start 06/30/16 at 16:30 Acetaminophen/ Hydrocodone Bitart ([place] (5/325)) 1 tab Q6H PRN PO MODERATE PAIN LEVEL 4-6 Last administered on 07/08/16 17:17; Admin Dose 1 TAB; Start at 16:30 Acetaminophen/ Hydrocodone Bitart ([place] (5/325)) 2 tab Q6H PRN PO SEVERE PAIN LEVEL 7-10; Start 06/30/16 at 16:30 Morphine Sulfate (morphine) 2 mg Q4H PRN IV SEVERE PAIN LEVEL 7-10 Last administered on 07/07/16 00:27; Admin Dose 2 MG; Start 06/30/16 at 16:30 Docusate Sodium (Colace) 100 mg Q12H PRN PO CONSTIPATION; Start 06/30/16 at 16: 30 Magnesium Hydroxide (Milk Of Mag) 30 ml DAILY PRN PO CONSTIPATION; Start at 16:30 Bisacodyl (Dulcolax Supp) 10 mg DAILY PRN [place] CONSTIPATION; Start 06/30/16 at 16 :30 Pantoprazole 40 mg 40 mg DAILY@06 IV Last administered on 07/08/16 05:39; Admin Dose 40 MG; Start 07/01/16 at 06:00 Piperacillin Sod/ Tazobactam Sod (Zosyn 3.375gm/ 100 ml (Pmx)) 100 ml @ 200 mls /hr Q8 IVPB Last administered on 07/08/16 13:50; Admin Dose 200 MLS/HR; Start 06/30/16 at 22:30 Metoclopramide HCl 10 mg 10 mg Q6 IV Last administered on 07/08/16 17:09; Admin Dose 10 MG; Start 07/03/16 at 18:00 Fluconazole/ Sodium Chloride 50 ml @ 50 mls/hr Q24H IVPB Last administered on 10:56; Admin Dose 50 MLS/HR; Start 07/07/16 at 11:00 Potassium Chloride/Sodium Chloride (KCl/NS) 110 ml @ 55 mls/hr ONCE ONCE IVPB ; Start 07/08/16 at 18:00; Stop 07/08/16 at 19:59 TO,DARBY Mason MD July 08, 2016 17:57
[2016-07-08] MEDS ORDERED: POTASSIUM CHLORIDE 20 MEQ in SOD CHLORIDE 0.9% 100 ML IVPB ONE (18:00)
[2016-07-08 19:00] VITALS: BP 141/77; RESP 18
--- NOTE | 2016-07-08 19:33 | CONS ---
Date/Time of Note Date/Time of Note DATE: 07/08/16 TIME: 19:31 Assessment/Plan Assessment/Plan Additional Assessment/Plan Additional Assessment/Plan IMPRESSION: 1. Biliary obstruction. 2. Gram negative bacteremia, either from the urine or from the biliary system. 3. 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 4. 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 Gastroparesis Plan PTC Reglan Liquid diet now PTC today with possible external drainage, done yesterday. Patient has a complete obstruction of the distal part of the bile duct. No dye entered into the duodenum Liver function has improved after external percutaneous biliary drainage aspiration precaution Will add erythromycin as a prokinetic agent if Reglan and erythromycin does not work then will have to declog the stent. Consultation Date/Type/Reason Admit Date/Time Jun 30, 2016 at 15:42 Initial Consult Date 06/30/16 Type of Consultation: Hematology Referring Provider: GAMALIEL HAIR MD 24 HR Interval Summary Free Text/Dictation Patient complains of vomiting, nausea Exam/Review of Systems Vital Signs Vitals Vital Signs Date Time Temp Pulse Resp B/P Pulse Ox O2 Delivery O2 Flow Rate FiO2 07/08/16 08:14 97.8 93 18 134/71 92 07/07/16 15:05 Room Air 07/05/16 16:00 2 Intake and Output 07/07/16 07/07/16 07/08/16 15:00 23:00 07:00 Intake Total 300 ml 1460 ml 1320 ml Output Total 350 ml 1100 ml Balance 300 ml 1110 ml 220 ml Exam Constitutional: alert, oriented, well developed Psych: nl mood/affect, no complaints Head: atraumatic, normocephalic Eyes: EOMI, PERRL, nl conjunctiva, nl lids, nl sclera ENMT: nl external ears & nose, nl lips & teeth, nl nasal mucosa & septum Neck: non-tender, supple Respiratory: clear to auscultation, normal air movement Cardiovascular: nl pulses, regular rate and rhythm Gastrointestinal: nl liver, spleen, non-tender, soft Musculoskeletal: nl extremities to inspection, nl gait and stance Extremities: normal pulses Neurological: DISPATCHER ELECTRIC POWER II-XII intact, nl mental status, nl speech, nl strength Skin: nl turgor, No rash or lesions Lymph: nl lymph nodes Results Result Diagram: 07/08/16 0509 07/08/16 0509 Results 24 hrs Laboratory Tests Test 07/08/16 05:09 White Blood Count 10.9 H Red Blood Count 3.59 L Hemoglobin 10.6 L Hematocrit 32.2 L Mean Corpuscular Volume 89.7 Mean Corpuscular Hemoglobin 29.5 Mean Corpuscular Hemoglobin Concent 32.9 Red Cell Distribution Width 17.4 H Platelet Count 319 # Mean Platelet Volume 9.7 Neutrophils % 74.4 Lymphocytes % 14.8 L Monocytes % 6.0 Eosinophils % 1.7 Basophils % 0.2 Nucleated Red Blood Cells % 0.0 Neutrophils # 8.1 H Lymphocytes # 1.6 Monocytes # 0.7 Eosinophils # 0.2 Basophils # 0.0 Nucleated Red Blood Cells # 0.0 Prothrombin Time 14.0 Prothrombin Time Ratio 1.1 INR International Normalized Ratio 1.08 Activated Partial Thromboplast Time 35.2 H Sodium Level 134 L Potassium Level 3.4 L Chloride Level 101 Carbon Dioxide Level 22 Anion Gap 14 Blood Urea Nitrogen 13 Creatinine 0.52 L Glucose Level 85 Calcium Level 7.9 L Medications Medications Current Medications Potassium Chloride/Sodium Chloride (NS-KCl 20 Meq) 1,000 ml @ 70 mls/hr [id number] IV Last administered on 07/08/16 05:10; Admin Dose 70 MLS/HR; Start at 16:18 Ondansetron HCl (Zofran Inj) 4 mg Q6H PRN IV NAUSEA AND/OR VOMITING Last administered on 07/08/16 13:50; Admin Dose 4 MG; Start 06/30/16 at 16:30 Acetaminophen (Tylenol Tab) 650 mg Q6H PRN PO PAIN LEVEL 1-3 OR FEVER Last administered on 07/05/16 19:31; Admin Dose 650 MG; Start 06/30/16 at 16:30 Acetaminophen (Tylenol Supp) 650 mg Q6H PRN [place] PAIN LEVEL 1-3 OR FEVER; Start 06/30/16 at 16:30 Acetaminophen/ Hydrocodone Bitart ([place] (5/325)) 1 tab Q6H PRN PO MODERATE PAIN LEVEL 4-6 Last administered on 07/08/16 17:17; Admin Dose 1 TAB; Start at 16:30 Acetaminophen/ Hydrocodone Bitart ([place] (5/325)) 2 tab Q6H PRN PO SEVERE PAIN LEVEL 7-10; Start 06/30/16 at 16:30 Morphine Sulfate (morphine) 2 mg Q4H PRN IV SEVERE PAIN LEVEL 7-10 Last administered on 07/07/16 00:27; Admin Dose 2 MG; Start 06/30/16 at 16:30 Docusate Sodium (Colace) 100 mg Q12H PRN PO CONSTIPATION; Start 06/30/16 at 16: 30 Magnesium Hydroxide (Milk Of Mag) 30 ml DAILY PRN PO CONSTIPATION; Start at 16:30 Bisacodyl (Dulcolax Supp) 10 mg DAILY PRN [place] CONSTIPATION; Start 06/30/16 at 16 :30 Pantoprazole 40 mg 40 mg DAILY@06 IV Last administered on 07/08/16 05:39; Admin Dose 40 MG; Start 07/01/16 at 06:00 Piperacillin Sod/ Tazobactam Sod (Zosyn 3.375gm/ 100 ml (Pmx)) 100 ml @ 200 mls /hr Q8 IVPB Last administered on 07/08/16 13:50; Admin Dose 200 MLS/HR; Start 06/30/16 at 22:30 Metoclopramide HCl 10 mg 10 mg Q6 IV Last administered on 07/08/16 17:09; Admin Dose 10 MG; Start 07/03/16 at 18:00 Fluconazole/ Sodium Chloride 50 ml @ 50 mls/hr Q24H IVPB Last administered on 10:56; Admin Dose 50 MLS/HR; Start 07/07/16 at 11:00 Potassium Chloride/Sodium Chloride (KCl/NS) 110 ml @ 55 mls/hr ONCE ONCE IVPB ; Start 07/08/16 at 18:00; Stop 07/08/16 at 19:59 TIANNA SALINAS MD July 08, 2016 19:32
[2016-07-08] MEDS: morphine 2 MG INJ IV PRN (20:22)
[2016-07-08] MEDS: ERYTHROMYCIN LACTOBIONATE 250 MG in SOD CHLORIDE 0.9% 100 ML IVPB SCH (23:30)
[2016-07-09] MEDS: morphine 2 MG INJ IV PRN ×5 (00:15→20:04)
[2016-07-09] MEDS: NS + KCL 20 MEQ 1,000 ML IV SCH (04:12)
[2016-07-09 05:33] LABS: POTASSIUM 3.4 mmol/L (3.5-5.1)
[2016-07-09 05:35] LABS: CREATININE 0.49 mg/dl (0.61-1.24)
[2016-07-09 05:36] LABS: CALCIUM 7.6 mg/dl (8.4-10.2)
[2016-07-09] MEDS: METOCLOPRAMIDE 10 MG INJ IV SCH ×3 (05:57→18:26)
[2016-07-09] MEDS: PANTOPRAZOLE 40 MG INJ IV SCH (05:57)
[2016-07-09] MEDS: PIPER-TAZO 3.375 GM IV (PMX) 100 ML IVPB SCH ×3 (05:58→21:44)
[2016-07-09] MEDS: ERYTHROMYCIN LACTOBIONATE 250 MG in SOD CHLORIDE 0.9% 100 ML IVPB SCH ×3 (06:51→18:44)
[2016-07-09 07:00] VITALS: BP 129/76; RESP 20
--- NOTE | 2016-07-09 11:16 | CONS ---
Date/Time of Note Date/Time of Note DATE: 07/09/16 TIME: 11:16 Consultation Date/Type/Reason Admit Date/Time Jun 30, 2016 at 15:42 Initial Consult Date 06/30/16 Type of Consultation: Hematology Referring Provider: GAMALIEL HAIR MD Exam/Review of Systems Vital Signs Vitals Vital Signs Date Time Temp Pulse Resp B/P Pulse Ox O2 Delivery O2 Flow Rate FiO2 07/09/16 07:00 97.5 91 20 129/76 95 07/07/16 15:05 Room Air 07/05/16 16:00 2 Intake and Output 07/08/16 07/08/16 07/09/16 15:00 23:00 07:00 Intake Total 150 ml 735 ml 1062 ml Output Total 60 ml 60 ml 990 ml Balance 90 ml 675 ml 72 ml Results Result Diagram: 07/08/16 0509 07/09/16 0436 Results 24 hrs Laboratory Tests Test 07/09/16 04:36 Sodium Level 133 L Potassium Level 3.4 L Chloride Level 100 Carbon Dioxide Level 21 Anion Gap 15 Blood Urea Nitrogen 11 Creatinine 0.49 L Glucose Level 81 Calcium Level 7.6 L Magnesium Level 1.6 L Medications Medications Current Medications Potassium Chloride/Sodium Chloride (NS-KCl 20 Meq) 1,000 ml @ 70 mls/hr [id number] IV Last administered on 07/09/16 04:12; Admin Dose 70 MLS/HR; Start at 16:18 Ondansetron HCl (Zofran Inj) 4 mg Q6H PRN IV NAUSEA AND/OR VOMITING Last administered on 07/08/16 20:22; Admin Dose 4 MG; Start 06/30/16 at 16:30 Acetaminophen (Tylenol Tab) 650 mg Q6H PRN PO PAIN LEVEL 1-3 OR FEVER Last administered on 07/05/16 19:31; Admin Dose 650 MG; Start 06/30/16 at 16:30 Acetaminophen (Tylenol Supp) 650 mg Q6H PRN [place] PAIN LEVEL 1-3 OR FEVER; Start 06/30/16 at 16:30 Acetaminophen/ Hydrocodone Bitart ([place] (5/325)) 1 tab Q6H PRN PO MODERATE PAIN LEVEL 4-6 Last administered on 07/08/16 17:17; Admin Dose 1 TAB; Start at 16:30 Acetaminophen/ Hydrocodone Bitart ([place] (5/325)) 2 tab Q6H PRN PO SEVERE PAIN LEVEL 7-10; Start 06/30/16 at 16:30 Morphine Sulfate (morphine) 2 mg Q4H PRN IV SEVERE PAIN LEVEL 7-10 Last administered on 07/09/16 07:49; Admin Dose 2 MG; Start 06/30/16 at 16:30 Docusate Sodium (Colace) 100 mg Q12H PRN PO CONSTIPATION; Start 06/30/16 at 16: 30 Magnesium Hydroxide (Milk Of Mag) 30 ml DAILY PRN PO CONSTIPATION; Start at 16:30 Bisacodyl (Dulcolax Supp) 10 mg DAILY PRN [place] CONSTIPATION; Start 06/30/16 at 16 :30 Pantoprazole 40 mg 40 mg DAILY@06 IV Last administered on 07/09/16 05:57; Admin Dose 40 MG; Start 07/01/16 at 06:00 Piperacillin Sod/ Tazobactam Sod (Zosyn 3.375gm/ 100 ml (Pmx)) 100 ml @ 200 mls /hr Q8 IVPB Last administered on 07/09/16 05:58; Admin Dose 200 MLS/HR; Start 06/30/16 at 22:30 Metoclopramide HCl 10 mg 10 mg Q6 IV Last administered on 07/09/16 05:57; Admin Dose 10 MG; Start 07/03/16 at 18:00 Fluconazole/ Sodium Chloride 50 ml @ 50 mls/hr Q24H IVPB Last administered on 10:56; Admin Dose 50 MLS/HR; Start 07/07/16 at 11:00 Erythromycin Lactobionate/ Sodium Chloride (Erythromycin Lactobionate/NS) 100 ml @ 100 mls/hr Q6 IVPB Last administered on 07/09/16 06:51; Admin Dose 100 MLS/HR; Start 07/09/16 at 00:00 MARIELA ROBIN NP July 09, 2016 11:16
[2016-07-09] MEDS: FLUCONAZOLE 100 MG/NS (PMX) 50 ML IVPB SCH (11:35)
--- NOTE | 2016-07-09 13:24 | PN ---
DATE: 07/09/2016 SUBJECTIVE: Mr. Paz is a 60-year-old Pakistani speaking gentleman with a history of metastatic uro thelial cancer. He also had gastric outlet obstruction in the past. He was admitted for this probl em with vomiting. GI is evaluating him. He also was found to have biliary obstruction and Escheric hia coli bacteremia. PHYSICAL EXAMINATION: GENERAL: Shows moderately built male in no acute distress. VITAL SIGNS: He is afebrile. ENT: Unremarkable. HEART: Unremarkable. LUNGS: Unremarkable. ABDOMEN: Soft, no masses. GENITALIA: External genitalia normal. EXTREMITIES: Showed no edema. LABORATORY DATA: CBC is stable with WBC 10,900, hemoglobin 10.6 and normal platelets. His bilirubi n is now down to 1.8 from 4.9. IMPRESSION: 1. Metastatic urothelial cancer. This tumor is infiltrating his colon and possibly the lateral wal l of the stomach causing gastric outlet obstruction. The patient will need chemotherapy as soon as his condition is stable. 2. Gastric outlet obstruction. This is secondary to #1. 3. Escherichia coli bacteremia. The patient is on antibiotics and is improving. PLAN: The patient is now on clear liquids. He clinically is improving. I will monitor his CBC and his liver function tests. Dictated By: DIPAK SHEPPARD/ANN MARIE Conf#: [id number] DID#: [id number]
--- NOTE | 2016-07-09 13:33 | PN ---
DATE: 07/09/2016 SUBJECTIVE: The patient remains unchanged with on and off nausea and emesis. He is in no distress, ambulating in the room. No fevers. ANTIMICROBIALS: 1. Zosyn. 2. Fluconazole. 3. Erythromycin. INDWELLINGS: Right chest Port-A-Cath and abdominal drainage catheter. MICROBIOLOGY: Body fluid cultures came back negative. Initial cultures on admission grew E. coli. Urine culture grew Pseudomonas. Repeat urine culture grew Chelsy albicans. PHYSICAL EXAMINATION: GENERAL: Well-developed, elderly man in no distress. HEENT: Head atraumatic, normocephalic. Sclerae anicteric. Buccal mucosa dry. NECK: Supple, trachea midline. CHEST: Rise symmetrical. Breath sounds diminished to bases. HEART: S1, S2. ABDOMEN: Soft. Bowel sounds present. EXTREMITIES: Without cyanosis. ASSESSMENT: 1. Status post Escherichia coli bacteremia secondary to biliary obstruction. 2. Status post unsuccessful ERCP and then fluoroscopic-guided biliary drainage with catheter placem ent on 07/05/2016. 3. Status post Pseudomonas aeruginosa urinary tract infection with repeat urine culture grew Candid a albicans. 4. Metastatic urothelial cancer. 5. Diabetic gastroparesis. 6. Right chest Port-A-Cath. PLAN: The patient remains stable, completing antibiotics for bacteremia. Continue present care. F josiane recommendations of consultants. Continue Reglan, erythromycin as per gastroenterology recomme ndations. Dictated By: MARIELA ROBIN FINISHING PAN OPERATOR for PENNY JOSEPH MD NI/NTS Conf#: [id number] DID#: [id number]
--- NOTE | 2016-07-09 13:33 | PN ---
Date/Time of Note Date/Time of Note DATE: 07/09/16 TIME: 13:30 Assessment/Plan VTE Prophylaxis VTE Prophylaxis Intervention: heparin Lines/Catheters IV Catheter Type (from [facility]): Peripheral IV Urinary Cath still in place: No Assessment/Plan Assessment/Plan 1. Sepsis 2nd biliary obstruction s/p attempted unsuccessful ERCP 07/03, biliary sepsis with E coli bacteremia - on IV abx, ID following 2. Transaminitis with Hyperbilirubinemia ? 2nd biliary obstruction ? 2nd tumor vs stent vs stone vs other -as above 3. Metastatic Urothelial cancer with ? carcinomatosis -heme/onc for tx after sepsis resolution 4. Hx obstructed duodenum with gastric outlet obstruction s/p duodenal stent 5. Steatosis -Eventual nutrition and lifestyle optimization 6. Weight loss probably secondary to above heparin for DVT prophylaxis IV abx zosyn IVF NS with KCL - decrease rate to 40cc/hr, pt still on full liquid diet, diet advancement as per GI KCl 20meQ IV x 1 extra dose, magnesium sulfate 1 gram IV x 1 dose now plan is to give 14 days of IV abx before considering Chemotherapy as per oncolgoy, pt is still on clear liquid diet Subjective 24 Hr Interval Summary Free Text/Dictation pain controlled, diet advanced Exam/Review of Systems Vital Signs Vitals Vital Signs Date Time Temp Pulse Resp B/P Pulse Ox O2 Delivery O2 Flow Rate FiO2 07/09/16 07:00 97.5 91 20 129/76 95 07/07/16 15:05 Room Air 07/05/16 16:00 2 Intake and Output 07/08/16 07/08/16 07/09/16 15:00 23:00 07:00 Intake Total 150 ml 735 ml 1062 ml Output Total 60 ml 60 ml 990 ml Balance 90 ml 675 ml 72 ml Exam GENERAL: This is a well-developed elderly man who is awake, in no distress. HEENT: Head atraumatic, normocephalic. Sclerae anicteric. Buccal mucosa dry. NECK: Supple, trachea midline. CHEST: Rise symmetrical. Breath sounds diminished to bases. HEART: S1, S2. ABDOMEN: Soft. Bowel tones present. EXTREMITIES: Without cyanosis or edema. Results Result Diagram: 07/08/16 0509 07/09/16 0436 Results 24 hrs Laboratory Tests Test 07/09/16 04:36 Sodium Level 133 L Potassium Level 3.4 L Chloride Level 100 Carbon Dioxide Level 21 Anion Gap 15 Blood Urea Nitrogen 11 Creatinine 0.49 L Glucose Level 81 Calcium Level 7.6 L Magnesium Level 1.6 L Medications Medications Current Medications Potassium Chloride/Sodium Chloride (NS-KCl 20 Meq) 1,000 ml @ 70 mls/hr [id number] IV Last administered on 07/09/16 04:12; Admin Dose 70 MLS/HR; Start at 16:18 Ondansetron HCl (Zofran Inj) 4 mg Q6H PRN IV NAUSEA AND/OR VOMITING Last administered on 07/08/16 20:22; Admin Dose 4 MG; Start 06/30/16 at 16:30 Acetaminophen (Tylenol Tab) 650 mg Q6H PRN PO PAIN LEVEL 1-3 OR FEVER Last administered on 07/05/16 19:31; Admin Dose 650 MG; Start 06/30/16 at 16:30 Acetaminophen (Tylenol Supp) 650 mg Q6H PRN [place] PAIN LEVEL 1-3 OR FEVER; Start 06/30/16 at 16:30 Acetaminophen/ Hydrocodone Bitart ([place] (5/325)) 1 tab Q6H PRN PO MODERATE PAIN LEVEL 4-6 Last administered on 07/08/16 17:17; Admin Dose 1 TAB; Start at 16:30 Acetaminophen/ Hydrocodone Bitart ([place] (5/325)) 2 tab Q6H PRN PO SEVERE PAIN LEVEL 7-10; Start 06/30/16 at 16:30 Morphine Sulfate (morphine) 2 mg Q4H PRN IV SEVERE PAIN LEVEL 7-10 Last administered on 07/09/16 11:35; Admin Dose 2 MG; Start 06/30/16 at 16:30 Docusate Sodium (Colace) 100 mg Q12H PRN PO CONSTIPATION; Start 06/30/16 at 16: 30 Magnesium Hydroxide (Milk Of Mag) 30 ml DAILY PRN PO CONSTIPATION; Start at 16:30 Bisacodyl (Dulcolax Supp) 10 mg DAILY PRN [place] CONSTIPATION; Start 06/30/16 at 16 :30 Pantoprazole 40 mg 40 mg DAILY@06 IV Last administered on 07/09/16 05:57; Admin Dose 40 MG; Start 07/01/16 at 06:00 Piperacillin Sod/ Tazobactam Sod (Zosyn 3.375gm/ 100 ml (Pmx)) 100 ml @ 200 mls /hr Q8 IVPB Last administered on 07/09/16 05:58; Admin Dose 200 MLS/HR; Start 06/30/16 at 22:30 Metoclopramide HCl 10 mg 10 mg Q6 IV Last administered on 07/09/16 11:35; Admin Dose 10 MG; Start 07/03/16 at 18:00 Fluconazole/ Sodium Chloride 50 ml @ 50 mls/hr Q24H IVPB Last administered on 11:35; Admin Dose 50 MLS/HR; Start 07/07/16 at 11:00 Erythromycin Lactobionate/ Sodium Chloride (Erythromycin Lactobionate/NS) 100 ml @ 100 mls/hr Q6 IVPB Last administered on 07/09/16 06:51; Admin Dose 100 MLS/HR; Start 07/09/16 at 00:00 SHANAE LEWIS MD July 09, 2016 13:33
--- NOTE | 2016-07-09 14:15 | CONS ---
Date/Time of Note Date/Time of Note DATE: 07/09/16 TIME: 14:15 Assessment/Plan Assessment/Plan Additional Assessment/Plan IMPRESSION: 1. Biliary obstruction. 2. Gram negative bacteremia, either from the urine or from the biliary system. 3. 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 4. 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 Gastroparesis, patient is responded well to combination of erythromycin and Reglan Plan PTC Reglan Liquid diet now PTC today with possible external drainage, done yesterday. Patient has a complete obstruction of the distal part of the bile duct. No dye entered into the duodenum Liver function has improved after external percutaneous biliary drainage aspiration precaution Will add erythromycin as a prokinetic agent if Reglan and erythromycin does not work then will have to declog the stent. Consultation Date/Type/Reason Admit Date/Time Jun 30, 2016 at 15:42 Initial Consult Date 06/30/16 Type of Consultation: Hematology Referring Provider: GAMALIEL HAIR MD 24 HR Interval Summary Constitutional: improved, no complaints Exam/Review of Systems Vital Signs Vitals Vital Signs Date Time Temp Pulse Resp B/P Pulse Ox O2 Delivery O2 Flow Rate FiO2 07/09/16 07:00 97.5 91 20 129/76 95 07/07/16 15:05 Room Air 07/05/16 16:00 2 Intake and Output 07/08/16 07/08/16 07/09/16 15:00 23:00 07:00 Intake Total 150 ml 735 ml 1062 ml Output Total 60 ml 60 ml 990 ml Balance 90 ml 675 ml 72 ml Exam Constitutional: alert, oriented, well developed Psych: nl mood/affect, no complaints Head: atraumatic, normocephalic Eyes: EOMI, PERRL, nl conjunctiva, nl lids, nl sclera ENMT: nl external ears & nose, nl lips & teeth, nl nasal mucosa & septum Neck: non-tender, supple Respiratory: clear to auscultation, normal air movement Cardiovascular: nl pulses, regular rate and rhythm Gastrointestinal: nl liver, spleen, non-tender, soft Musculoskeletal: nl extremities to inspection, nl gait and stance Extremities: normal pulses Neurological: [employer] II-XII intact, nl mental status, nl speech, nl strength Skin: nl turgor, No rash or lesions Lymph: nl lymph nodes Results Result Diagram: 07/08/16 0509 07/09/16 0436 Results 24 hrs Laboratory Tests Test 07/09/16 04:36 Sodium Level 133 L Potassium Level 3.4 L Chloride Level 100 Carbon Dioxide Level 21 Anion Gap 15 Blood Urea Nitrogen 11 Creatinine 0.49 L Glucose Level 81 Calcium Level 7.6 L Magnesium Level 1.6 L Medications Medications Current Medications Potassium Chloride/Sodium Chloride (NS-KCl 20 Meq) 1,000 ml @ 70 mls/hr [id number] IV Last administered on 07/09/16 04:12; Admin Dose 70 MLS/HR; Start at 16:18 Ondansetron HCl (Zofran Inj) 4 mg Q6H PRN IV NAUSEA AND/OR VOMITING Last administered on 07/08/16 20:22; Admin Dose 4 MG; Start 06/30/16 at 16:30 Acetaminophen (Tylenol Tab) 650 mg Q6H PRN PO PAIN LEVEL 1-3 OR FEVER Last administered on 07/05/16 19:31; Admin Dose 650 MG; Start 06/30/16 at 16:30 Acetaminophen (Tylenol Supp) 650 mg Q6H PRN [place] PAIN LEVEL 1-3 OR FEVER; Start 06/30/16 at 16:30 Acetaminophen/ Hydrocodone Bitart ([place] (5/325)) 1 tab Q6H PRN PO MODERATE PAIN LEVEL 4-6 Last administered on 07/08/16 17:17; Admin Dose 1 TAB; Start at 16:30 Acetaminophen/ Hydrocodone Bitart ([place] (5/325)) 2 tab Q6H PRN PO SEVERE PAIN LEVEL 7-10; Start 06/30/16 at 16:30 Morphine Sulfate (morphine) 2 mg Q4H PRN IV SEVERE PAIN LEVEL 7-10 Last administered on 07/09/16 11:35; Admin Dose 2 MG; Start 06/30/16 at 16:30 Docusate Sodium (Colace) 100 mg Q12H PRN PO CONSTIPATION; Start 06/30/16 at 16: 30 Magnesium Hydroxide (Milk Of Mag) 30 ml DAILY PRN PO CONSTIPATION; Start at 16:30 Bisacodyl (Dulcolax Supp) 10 mg DAILY PRN [place] CONSTIPATION; Start 06/30/16 at 16 :30 Pantoprazole 40 mg 40 mg DAILY@06 IV Last administered on 07/09/16 05:57; Admin Dose 40 MG; Start 07/01/16 at 06:00 Piperacillin Sod/ Tazobactam Sod (Zosyn 3.375gm/ 100 ml (Pmx)) 100 ml @ 200 mls /hr Q8 IVPB Last administered on 07/09/16 05:58; Admin Dose 200 MLS/HR; Start 06/30/16 at 22:30 Metoclopramide HCl 10 mg 10 mg Q6 IV Last administered on 07/09/16 11:35; Admin Dose 10 MG; Start 07/03/16 at 18:00 Fluconazole/ Sodium Chloride 50 ml @ 50 mls/hr Q24H IVPB Last administered on 11:35; Admin Dose 50 MLS/HR; Start 07/07/16 at 11:00 Erythromycin Lactobionate 250 mg/Sodium Chloride 100 ml @ 100 mls/hr Q6 IVPB Last administered on 07/09/16 06:51; Admin Dose 100 MLS/HR; Start 07/09/16 at 00: 00 Magnesium Sulfate/ Dextrose 100 ml @ 100 mls/hr ONCE ONCE IVPB ; Start at 14:30; Stop 07/09/16 at 15:29 Potassium Chloride/Sodium Chloride (KCl/NS) 110 ml @ 55 mls/hr ONCE ONCE IVPB ; Start 07/09/16 at 16:00; Stop 07/09/16 at 17:59 TIANNA SALINAS MD July 09, 2016 14:15
[2016-07-09] MEDS ORDERED: MAGNESIUM SULFATE 1 GM/D5W 100 ML IVPB ONE (14:30)
[2016-07-09] MEDS ORDERED: POTASSIUM CHLORIDE 20 MEQ in SOD CHLORIDE 0.9% 100 ML IVPB ONE (16:00)
[2016-07-09 20:30] VITALS: BP 142/81; RESP 18
[2016-07-10] MEDS: METOCLOPRAMIDE 10 MG INJ IV SCH ×4 (00:11→17:16)
[2016-07-10] MEDS: ERYTHROMYCIN LACTOBIONATE 250 MG in SOD CHLORIDE 0.9% 100 ML IVPB SCH ×4 (00:11→17:16)
[2016-07-10] MEDS: morphine 2 MG INJ IV PRN ×2 (02:55→09:45)
[2016-07-10] MEDS: PIPER-TAZO 3.375 GM IV (PMX) 100 ML IVPB SCH ×3 (05:03→22:34)
[2016-07-10] MEDS: NS + KCL 20 MEQ 1,000 ML IV SCH ×2 (05:04→13:07)
[2016-07-10] MEDS: PANTOPRAZOLE 40 MG INJ IV SCH (05:05)
[2016-07-10 05:55] LABS: ADD SCAN DIFF NO
[2016-07-10 05:58] LABS: BASOPHILS % 0.2 % (0.0-2.0); EOSINOPHILS # 0.1 10^3/ul (0.0-0.5); EOSINOPHILS % 0.4 % (0.0-7.0); HEMATOCRIT 32.1 % (42.0-52.0); HEMOGLOBIN 10.9 g/dl (14.0-18.0); LYMPHOCYTES # 1.5 10^3/ul (0.8-2.9); LYMPHOCYTES % 12.3 % (15.0-51.0); MEAN CORPUSCULAR HEMOGLOBIN 30.7 pg (29.0-33.0); MEAN CORPUSCULAR VOLUME 90.4 fl (82.0-101.0); MEAN PLATELET VOLUME 9.2 fl (7.4-10.4); MONOCYTE # 0.7 10^3/ul (0.3-0.9); MONOCYTES % 5.6 % (0.0-11.0); NEUTROPHIL # 9.8 10^3/ul (1.6-7.5); NEUTROPHILS % 79.9 % (39.0-77.0); PLATELET COUNT 372 10^3/UL (140-415); RED BLOOD COUNT 3.55 10^6/ul (4.70-6.10); RED CELL DISTRIBUTION WIDTH 17.5 % (11.5-14.5); WHITE BLOOD COUNT 12.3 10^3/ul (4.8-10.8)
[2016-07-10 07:09] LABS: ALBUMIN 2.5 g/dl (3.3-4.9)
[2016-07-10 07:10] LABS: POTASSIUM 3.4 mmol/L (3.5-5.1)
[2016-07-10 07:12] LABS: ALBUMIN/GLOBULIN RATIO 0.75; BILIRUBIN,DIRECT 0.6 mg/dl (0.00-0.20); BILIRUBIN,INDIRECT 0.9 mg/dl (0-1.1); BILIRUBIN,TOTAL 1.5 mg/dl (0.2-1.3); CREATININE 0.49 mg/dl (0.61-1.24); TOTAL PROTEIN 5.8 g/dl (6.1-8.1)
[2016-07-10 07:13] LABS: CALCIUM 7.9 mg/dl (8.4-10.2)
[2016-07-10 08:34] VITALS: BP 137/80; RESP 18
[2016-07-10] MEDS: FLUCONAZOLE 100 MG/NS (PMX) 50 ML IVPB SCH (11:21)
--- NOTE | 2016-07-10 13:29 | PN ---
Date/Time of Note Date/Time of Note DATE: 07/10/16 TIME: 13:25 Assessment/Plan VTE Prophylaxis VTE Prophylaxis Intervention: heparin Lines/Catheters IV C[facility]ter Type (from [facility]): Peripheral IV Urinary Cath still in place: No Assessment/Plan Assessment/Plan 1. Sepsis 2nd biliary obstruction s/p attempted unsuccessful ERCP 07/03, biliary sepsis with E coli bacteremia - on IV abx, ID following 2. Transaminitis with Hyperbilirubinemia ? 2nd biliary obstruction ? 2nd tumor vs stent vs stone vs other s/p PTC external biliary drainage -as above 3. Metastatic Urothelial cancer with ? carcinomatosis -heme/onc for tx after sepsis resolution 4. Hx obstructed duodenum with gastric outlet obstruction s/p duodenal stent 5. Steatosis -Eventual nutrition and lifestyle optimization 6. Weight loss probably secondary to above heparin for DVT prophylaxis IV abx zosyn IVF NS with KCL - continue at 70cc/hr , pt still on full liquid diet, diet advancement as per GI KCl 20meQ IV x 1 extra dose plan is to give 14 days of IV abx before considering Chemotherapy as per oncolgoy, pt is still on clear liquid diet Subjective 24 Hr Interval Summary Free Text/Dictation no acute events, on full liquid diet, k still low today Exam/Review of Systems Vital Signs Vitals Vital Signs Date Time Temp Pulse Resp B/P Pulse Ox O2 Delivery O2 Flow Rate FiO2 07/10/16 08:34 97.5 98 18 137/80 94 07/07/16 15:05 Room Air Intake and Output 07/09/16 07/09/16 07/10/16 15:00 23:00 07:00 Intake Total 50 ml 2010 ml 900 ml Output Total 1600 ml 600 ml Balance 50 ml 410 ml 300 ml Exam Constitutional: alert, frail, oriented Head: normocephalic Eyes: icteric, nl conjunctiva ENMT: nl external ears & nose Neck: non-tender, supple Respiratory: clear to auscultation, normal air movement Cardiovascular: regular rate and rhythm Gastrointestinal: soft Musculoskeletal: nl extremities to inspection, nl gait and stance Results Result Diagram: 07/10/16 0507 07/10/16 0507 Results 24 hrs Laboratory Tests Test 07/10/16 05:07 White Blood Count 12.3 H Red Blood Count 3.55 L Hemoglobin 10.9 L Hematocrit 32.1 L Mean Corpuscular Volume 90.4 Mean Corpuscular Hemoglobin 30.7 Mean Corpuscular Hemoglobin Concent 34.0 Red Cell Distribution Width 17.5 H Platelet Count 372 Mean Platelet Volume 9.2 Neutrophils % 79.9 H Lymphocytes % 12.3 L Monocytes % 5.6 Eosinophils % 0.4 Basophils % 0.2 Nucleated Red Blood Cells % 0.0 Neutrophils # 9.8 H Lymphocytes # 1.5 Monocytes # 0.7 Eosinophils # 0.1 Basophils # 0.0 Nucleated Red Blood Cells # 0.0 Sodium Level 133 L Potassium Level 3.4 L Chloride Level 99 Carbon Dioxide Level 21 Anion Gap 16 Blood Urea Nitrogen 10 Creatinine 0.49 L Glucose Level 98 Calcium Level 7.9 L Magnesium Level 1.8 Total Bilirubin 1.5 H Direct Bilirubin 0.60 H Indirect Bilirubin 0.9 Aspartate Amino Transf (AST/SGOT) 43 Alanine Aminotransferase (ALT/SGPT) 50 Alkaline Phosphatase 191 H Total Protein 5.8 L Albumin 2.5 L Globulin 3.30 H Albumin/Globulin Ratio 0.75 Medications Medications Current Medications Potassium Chloride/Sodium Chloride (NS-KCl 20 Meq) 1,000 ml @ 70 mls/hr [id number] IV Last administered on 07/10/16 05:04; Admin Dose 70 MLS/HR; Start at 16:18 Ondansetron HCl (Zofran Inj) 4 mg Q6H PRN IV NAUSEA AND/OR VOMITING Last administered on 07/08/16 20:22; Admin Dose 4 MG; Start 06/30/16 at 16:30 Acetaminophen (Tylenol Tab) 650 mg Q6H PRN PO PAIN LEVEL 1-3 OR FEVER Last administered on 07/05/16 19:31; Admin Dose 650 MG; Start 06/30/16 at 16:30 Acetaminophen (Tylenol Supp) 650 mg Q6H PRN [place] PAIN LEVEL 1-3 OR FEVER; Start 06/30/16 at 16:30 Acetaminophen/ Hydrocodone Bitart ([place] (5/325)) 1 tab Q6H PRN PO MODERATE PAIN LEVEL 4-6 Last administered on 07/08/16 17:17; Admin Dose 1 TAB; Start at 16:30 Acetaminophen/ Hydrocodone Bitart ([place] (5/325)) 2 tab Q6H PRN PO SEVERE PAIN LEVEL 7-10 Last administered on 07/10/16 13:15; Admin Dose 2 TAB; Start at 16:30 Morphine Sulfate (morphine) 2 mg Q4H PRN IV SEVERE PAIN LEVEL 7-10 Last administered on 07/10/16 09:45; Admin Dose 2 MG; Start 06/30/16 at 16:30 Docusate Sodium (Colace) 100 mg Q12H PRN PO CONSTIPATION; Start 06/30/16 at 16: 30 Magnesium Hydroxide (Milk Of Mag) 30 ml DAILY PRN PO CONSTIPATION; Start at 16:30 Bisacodyl (Dulcolax Supp) 10 mg DAILY PRN [place] CONSTIPATION; Start 06/30/16 at 16 :30 Pantoprazole 40 mg 40 mg DAILY@06 IV Last administered on 07/10/16 05:05; Admin Dose 40 MG; Start 07/01/16 at 06:00 Piperacillin Sod/ Tazobactam Sod (Zosyn 3.375gm/ 100 ml (Pmx)) 100 ml @ 200 mls /hr Q8 IVPB Last administered on 07/10/16 05:03; Admin Dose 200 MLS/HR; Start 06/30/16 at 22:30 Metoclopramide HCl 10 mg 10 mg Q6 IV Last administered on 07/10/16 13:07; Admin Dose 10 MG; Start 07/03/16 at 18:00 Fluconazole/ Sodium Chloride 50 ml @ 50 mls/hr Q24H IVPB Last administered on 11:21; Admin Dose 50 MLS/HR; Start 07/07/16 at 11:00 Erythromycin Lactobionate/ Sodium Chloride (Erythromycin Lactobionate/NS) 100 ml @ 100 mls/hr Q6 IVPB Last administered on 07/10/16 13:07; Admin Dose 100 MLS/HR; Start 07/09/16 at 00:00 SHANAE LEWIS MD July 10, 2016 13:28
[2016-07-10] MEDS ORDERED: POTASSIUM CHLORIDE 20 MEQ in SOD CHLORIDE 0.9% 100 ML IVPB ONE (14:30)
--- NOTE | 2016-07-10 15:19 | CONS ---
Date/Time of Note Date/Time of Note DATE: 07/10/16 TIME: 15:18 Assessment/Plan Assessment/Plan Chief Complaint/Hosp Course SUBJECTIVE: The patient remains unchanged with on and off nausea and emesis. He is in no distress. No fevers. ANTIMICROBIALS: 1. Zosyn. 2. Fluconazole. 3. Erythromycin. INDWELLINGS: Right chest Port-A-Cath and abdominal drainage catheter. MICROBIOLOGY: Body fluid cultures came back negative. Initial cultures on admission grew E. coli. Urine culture grew Pseudomonas. Repeat urine culture grew Chelsy albicans. PHYSICAL EXAMINATION: GENERAL: Well-developed, elderly man in no distress. HEENT: Head atraumatic, normocephalic. Sclerae anicteric. Buccal mucosa dry. NECK: Supple, trachea midline. CHEST: Rise symmetrical. Breath sounds diminished to bases. HEART: S1, S2. ABDOMEN: Soft. Bowel sounds present. EXTREMITIES: Without cyanosis. ASSESSMENT: 1. Status post Escherichia coli bacteremia secondary to biliary obstruction. 2. Status post unsuccessful ERCP and then fluoroscopic-guided biliary drainage with catheter placement on 07/05/2016. 3. Status post Pseudomonas aeruginosa urinary tract infection with repeat urine culture grew Chelsy albicans. 4. Metastatic urothelial cancer. 5. Diabetic gastroparesis. 6. Right chest Port-A-Cath. PLAN: The patient remains unchanged. Continue present care, abx, GI/oncology rec-s. staff Problems: Consultation Date/Type/Reason Admit Date/Time Jun 30, 2016 at 15:42 Initial Consult Date 06/30/16 Type of Consultation: ID Referring Provider: GAMALIEL HAIR MD Exam/Review of Systems Vital Signs Vitals Vital Signs Date Time Temp Pulse Resp B/P Pulse Ox O2 Delivery O2 Flow Rate FiO2 07/10/16 08:34 97.5 98 18 137/80 94 07/07/16 15:05 Room Air Intake and Output 07/09/16 07/09/16 07/10/16 15:00 23:00 07:00 Intake Total 50 ml 2010 ml 900 ml Output Total 1600 ml 600 ml Balance 50 ml 410 ml 300 ml Results Result Diagram: 07/10/16 0507 07/10/16 0507 Results 24 hrs Laboratory Tests Test 07/10/16 05:07 White Blood Count 12.3 H Red Blood Count 3.55 L Hemoglobin 10.9 L Hematocrit 32.1 L Mean Corpuscular Volume 90.4 Mean Corpuscular Hemoglobin 30.7 Mean Corpuscular Hemoglobin Concent 34.0 Red Cell Distribution Width 17.5 H Platelet Count 372 Mean Platelet Volume 9.2 Neutrophils % 79.9 H Lymphocytes % 12.3 L Monocytes % 5.6 Eosinophils % 0.4 Basophils % 0.2 Nucleated Red Blood Cells % 0.0 Neutrophils # 9.8 H Lymphocytes # 1.5 Monocytes # 0.7 Eosinophils # 0.1 Basophils # 0.0 Nucleated Red Blood Cells # 0.0 Sodium Level 133 L Potassium Level 3.4 L Chloride Level 99 Carbon Dioxide Level 21 Anion Gap 16 Blood Urea Nitrogen 10 Creatinine 0.49 L Glucose Level 98 Calcium Level 7.9 L Magnesium Level 1.8 Total Bilirubin 1.5 H Direct Bilirubin 0.60 H Indirect Bilirubin 0.9 Aspartate Amino Transf (AST/SGOT) 43 Alanine Aminotransferase (ALT/SGPT) 50 Alkaline Phosphatase 191 H Total Protein 5.8 L Albumin 2.5 L Globulin 3.30 H Albumin/Globulin Ratio 0.75 Medications Medications Current Medications Potassium Chloride/Sodium Chloride (NS-KCl 20 Meq) 1,000 ml @ 70 mls/hr [id number] IV Last administered on 07/10/16 05:04; Admin Dose 70 MLS/HR; Start at 16:18 Ondansetron HCl (Zofran Inj) 4 mg Q6H PRN IV NAUSEA AND/OR VOMITING Last administered on 07/08/16 20:22; Admin Dose 4 MG; Start 06/30/16 at 16:30 Acetaminophen (Tylenol Tab) 650 mg Q6H PRN PO PAIN LEVEL 1-3 OR FEVER Last administered on 07/05/16 19:31; Admin Dose 650 MG; Start 06/30/16 at 16:30 Acetaminophen (Tylenol Supp) 650 mg Q6H PRN [place] PAIN LEVEL 1-3 OR FEVER; Start 06/30/16 at 16:30 Acetaminophen/ Hydrocodone Bitart ([place] (5/325)) 1 tab Q6H PRN PO MODERATE PAIN LEVEL 4-6 Last administered on 07/08/16 17:17; Admin Dose 1 TAB; Start at 16:30 Acetaminophen/ Hydrocodone Bitart ([place] (5/325)) 2 tab Q6H PRN PO SEVERE PAIN LEVEL 7-10 Last administered on 07/10/16 13:15; Admin Dose 2 TAB; Start at 16:30 Morphine Sulfate (morphine) 2 mg Q4H PRN IV SEVERE PAIN LEVEL 7-10 Last administered on 07/10/16 09:45; Admin Dose 2 MG; Start 06/30/16 at 16:30 Docusate Sodium (Colace) 100 mg Q12H PRN PO CONSTIPATION; Start 06/30/16 at 16: 30 Magnesium Hydroxide (Milk Of Mag) 30 ml DAILY PRN PO CONSTIPATION; Start at 16:30 Bisacodyl (Dulcolax Supp) 10 mg DAILY PRN [place] CONSTIPATION; Start 06/30/16 at 16 :30 Pantoprazole 40 mg 40 mg DAILY@06 IV Last administered on 07/10/16 05:05; Admin Dose 40 MG; Start 07/01/16 at 06:00 Piperacillin Sod/ Tazobactam Sod (Zosyn 3.375gm/ 100 ml (Pmx)) 100 ml @ 200 mls /hr Q8 IVPB Last administered on 07/10/16 05:03; Admin Dose 200 MLS/HR; Start 06/30/16 at 22:30 Metoclopramide HCl 10 mg 10 mg Q6 IV Last administered on 07/10/16 13:07; Admin Dose 10 MG; Start 07/03/16 at 18:00 Erythromycin Lactobionate 250 mg/Sodium Chloride 100 ml @ 100 mls/hr Q6 IVPB Last administered on 07/10/16 13:07; Admin Dose 100 MLS/HR; Start 07/09/16 at 00: 00 Potassium Chloride 20 meq/ Sodium Chloride 110 ml @ 55 mls/hr ONCE ONCE IVPB ; Start 07/10/16 at 14:30; Stop 07/10/16 at 16:29 Fluconazole/N/A (Diflucan 200 Mg/ NS (Pmx)/Evac Container) 50 ml @ 50 mls/hr Q24H IVPB ; Start 07/11/16 at 11:00 MARIELA ROBIN NP July 10, 2016 15:19
--- NOTE | 2016-07-10 18:25 | PN ---
DATE: 07/10/2016 SUBJECTIVE: Mr. Paz is a 60-year-old gentleman admitted with history of metastatic urot helial cancer with a gastric outlet obstruction and obstructive jaundice. The patient has biliary d rain. He still complains of hiccups and is unable to eat. PHYSICAL EXAMINATION: GENERAL: Shows a moderately built male. He is able to walk to the bathroom. VITAL SIGNS: He is afebrile. EARS, NOSE, THROAT, HEART, LUNGS: Normal. ABDOMEN: Slightly tender in the epigastrium. No masses. He has a biliary drain on the right, whic h is draining bile. Other systems unremarkable. LABORATORY DATA: His CBC is stable, but white count is still slightly high at 12,300 with mild left shift. His bilirubin is now down to 1.5. His creatinine is 0.49. IMPRESSION: 1. Metastatic urothelial cancer. This tumor was infiltrating the colon and possibly the lateral wa ll of the stomach causing a gastric outlet obstruction. After his condition is stable, he will need chemotherapy. Usually urothelial cancer is responsive fairly well to chemotherapy. 2. Escherichia coli bacteremia. The patient is on antibiotics and is improving. 3. Obstructive jaundice. He has a biliary drain and his bilirubin is coming down every day as well and it is now down to 1.5. 4. Gastric outlet obstruction. The patient still complains of hiccups and unable to eat. Hopefull y, this will improve. PLAN: We will continue the antibiotics and the present treatment. He might need reevaluation by GI , because of the difficulty in eating and hiccups. Dictated By: DIPAK QUINTERO MD PC/ANN MARIE Conf#: [id number] DID#: [id number] CC: GAMALIEL HAIR MD;*EndCC*
[2016-07-10 19:26] VITALS: BP 137/75; RESP 18
[2016-07-10] MEDS: HYDROCODONE/APAP (5/325) TAB PO PRN (22:33)
[2016-07-11] VITALS (8 sets, daily range): BP systolic 125–144; BP diastolic 68–80; PULSE 80–91; RESP 16–20
[2016-07-11] MEDS: ERYTHROMYCIN LACTOBIONATE 250 MG in SOD CHLORIDE 0.9% 100 ML IVPB SCH ×5 (00:42→23:31)
[2016-07-11] MEDS: METOCLOPRAMIDE 10 MG INJ IV SCH ×5 (00:42→23:25)
[2016-07-11] MEDS: NS + KCL 20 MEQ 1,000 ML IV SCH ×4 (00:49→23:32)
[2016-07-11] MEDS: ONDANSETRON 4 MG INJ IV PRN ×3 (01:14→21:37)
[2016-07-11 05:17] LABS: ADD SCAN DIFF NO
[2016-07-11 05:36] LABS: BASOPHILS % 0.1 % (0.0-2.0); EOSINOPHILS # 0.1 10^3/ul (0.0-0.5); EOSINOPHILS % 0.6 % (0.0-7.0); HEMATOCRIT 31.8 % (42.0-52.0); HEMOGLOBIN 10.3 g/dl (14.0-18.0); LYMPHOCYTES % 7.9 % (15.0-51.0); MEAN CORPUSCULAR HEMOGLOBIN 29.9 pg (29.0-33.0); MEAN CORPUSCULAR HGB CONC 32.4 g/dl (32.0-37.0); MEAN CORPUSCULAR VOLUME 92.2 fl (82.0-101.0); MEAN PLATELET VOLUME 9.3 fl (7.4-10.4); MONOCYTE # 0.7 10^3/ul (0.3-0.9); MONOCYTES % 5.4 % (0.0-11.0); NEUTROPHIL # 10.5 10^3/ul (1.6-7.5); NEUTROPHILS % 84.7 % (39.0-77.0); PLATELET COUNT 334 10^3/UL (140-415); RED BLOOD COUNT 3.45 10^6/ul (4.70-6.10); WHITE BLOOD COUNT 12.4 10^3/ul (4.8-10.8)
[2016-07-11 05:40] LABS: INR 1.23; PROTIME 15.6 Sec (12.2-14.2); PT RATIO 1.2
[2016-07-11 05:41] LABS: PARTIAL THROMBOPLASTIN TIME 35.1 Sec (25.0-35.0)
[2016-07-11 05:44] LABS: ALBUMIN 2.3 g/dl (3.3-4.9)
[2016-07-11 05:45] LABS: POTASSIUM 3.2 mmol/L (3.5-5.1)
[2016-07-11 05:47] LABS: ALBUMIN/GLOBULIN RATIO 0.74; BILIRUBIN,DIRECT 0.8 mg/dl (0.00-0.20); BILIRUBIN,INDIRECT 0.8 mg/dl (0-1.1); BILIRUBIN,TOTAL 1.6 mg/dl (0.2-1.3); CREATININE 0.44 mg/dl (0.61-1.24); MAGNESIUM 1.7 mg/dl (1.7-2.5); PHOSPHORUS 2.6 mg/dl (2.5-4.9); TOTAL PROTEIN 5.4 g/dl (6.1-8.1)
[2016-07-11 05:48] LABS: CALCIUM 7.7 mg/dl (8.4-10.2)
[2016-07-11] MEDS: PANTOPRAZOLE 40 MG INJ IV SCH (05:55)
[2016-07-11] MEDS: PIPER-TAZO 3.375 GM IV (PMX) 100 ML IVPB SCH ×3 (05:55→21:35)
[2016-07-11] MEDS ORDERED: FENTAnyl 50 MCG/ML VIAL ONE (10:23)
[2016-07-11] MEDS ORDERED: MIDAZOLAM 1 MG/ML 2 ML INJ ONE (10:23)
[2016-07-11] MEDS ORDERED: SOD CHLORIDE 0.9% 500 ML ONE (10:25)
[2016-07-11] MEDS ORDERED: IOHEXOL 300MG/ML 30 ML BTL ONE (10:25)
--- NOTE | 2016-07-11 11:01 | PN ---
Date/Time of Note Date/Time of Note DATE: 07/11/16 TIME: 10:59 Assessment/Plan Lines/Catheters IV Catheter Type (from [facility]): Peripheral IV [place] in Place (from [facility]): No Assessment/Plan Chief Complaint/Hosp Course 1. Sepsis 2nd biliary obstruction s/p attempted unsuccessful ERCP 07/03. s/p PTC 07/05 -abx -ivf -supportive care -Drain 2. Transaminitis with Hyperbilirubinemia ? 2nd biliary obstruction ? 2nd tumor s /p PTC 07/05 -as above 3. Metastatic Urothelial cancer with ? carcinomatosis -heme/onc for tx after sepsis resolution 4. Hx obstructed duodenum with gastric outlet obstruction s/p duodenal stent. Now with hiccups and difficulty eating. -?UGI 5. Steatosis -Eventual nutrition and lifestyle optimization 6. Weight loss probably secondary to above -As above Thank you, Problems: Subjective 24 Hr Interval Summary Hiccups. Difficulty eating. s/p PTC 07/05. No f/c. Min abdominal pain. No chest pain or shortness of breath. No cough. No seizure. No headache, visual , or neurologic changes. No dysuria. Exam/Review of Systems Vital Signs Vitals Vital Signs Date Time Temp Pulse Resp B/P Pulse Ox O2 Delivery O2 Flow Rate FiO2 07/11/16 10:35 98.0 91 20 127/69 91 Room Air Intake and Output 07/10/16 07/10/16 07/11/16 15:00 23:00 07:00 Intake Total 250 ml 1200 ml 1060 ml Output Total 250 ml Balance 250 ml 1200 ml 810 ml Exam Free Text/Dictation Constitutional: alert, oriented, No distress Psych: nl mood/affect, No anxiety, No confusion Head: atraumatic, normocephalic Eyes: EOMI, PERRL, nl conjunctiva, icterus ENMT: mucosa pink and moist, nl external ears & nose, nl lips & teeth Neck: non-tender, supple, No jvd, No masses Respiratory: normal air movement, No congested cough, No labored breathing Cardiovascular: regular rate and rhythm, No edema Gastrointestinal: min-tender, soft, No distended, No rebound or guarding Genitourinary - Male: nl scrotum Musculoskeletal: nl extremities to inspection, nl gait and stance, No joint tenderness Extremities: normal pulses, No calf tenderness, No cyanosis Neurological: nl mental status, nl speech, nl strength Skin: nl turgor, jaundiceNo diaphoresis, No rash or lesions Lymph: No nl lymph nodes (Inguinal) Results Result Diagram: 07/11/16 0428 07/11/16 0428 DIAMOND FITZGERALD MD July 11, 2016 11:01
--- NOTE | 2016-07-11 12:01 | RADRPT ---
PROCEDURE: Fluoroscopic guided internal external biliary drainage with stent placement and transhe patic cholangiogram. CLINICAL INDICATION: Biliary obstruction. TECHNIQUE: Prior to the procedure, informed consent was obtained. Risks including bleeding and inf ection were explained to the patient. The patient understood and was willing to proceed. A procedura l pause was performed. The patient's name, date of , and procedure to be performed were verifie d. The right upper quadrant of the abdomen and the existing biliary drainage catheter were prepped a nd draped in the usual sterile fashion. Contrast was injected into the existing biliary drainage catheter and digital images were obtained. The catheter is within the mid common bile duct. The common bile duct is dilated and the intrahepa tic bile ducts are mildly dilated. Contrast does not enter the duodenum. The cystic duct is patent. 1% lidocaine was injected around the existing catheter. The catheter was removed over a 0.035 inc h guidewire. A Kumpe catheter was then advanced over the guide wire and positioned in the region of the distal common bile duct at the site of the stricture. A 0.035 inch Glidewire was then advanced through a stenotic lesion in the distal common bile duct and into the duodenum, and through the meta llic stent in the second and third part of the duodenum. The Kumpe catheter was advanced over the g uidewire, the guidewire was removed, and contrast was injected, opacifying the duodenum. The first p art of the duodenum is patent. The duodenum at the site of the metallic duodenal stent is markedly narrowed. A 0.035-inch Amplatz guide wire was then advanced through the catheter such that the tip was in the fourth part of the duodenum. The catheter was removed. A new 10-Spanish internal external biliary drainage catheter was then advanced over the guide wire such that the distal pigtail was in the duodenum and side holes were present in the common bile duct. Contrast was injected, confirmin g excellent position. The catheter was then secured to the patient's skin with 2-0 silk. The draina ge catheter was then connected to a standard gravity drainage bag. COMPARISON: 07/05/2016. FINDINGS: Images with contrast demonstrate dilated intrahepatic bile ducts and dilated common bile duct. The c ommon bile duct is abnormal distally with a complete occlusion. No contrast enters the duodenum init ially. With the catheter in position, contrast is present in the biliary system and the duodenum. T here is marked narrowing of the proximal aspect of the metallic stent in the duodenum. IMPRESSION: 1. Satisfactory placement of internal external biliary drainage catheter. RPTAT: QQ .Naldo Oneal MD, Date Time Electronically viewed and signed by .Naldo Oneal MD, on 07/11/2016 12:00 .R/
[2016-07-11] MEDS: FLUCONAZOLE IVPB SCH (12:08)
[2016-07-11] MEDS: NS 100 MG IVPB SCH (12:08)
[2016-07-11] MEDS: EVAC CONTAINER IVPB SCH (12:08)
--- NOTE | 2016-07-11 13:05 | CONS ---
Date/Time of Note Date/Time of Note DATE: 07/11/16 TIME: 13:04 Assessment/Plan Assessment/Plan Chief Complaint/Hosp Course SUBJECTIVE: The patient remains unchanged with on and off nausea and emesis. He is in no distress. No fevers. ANTIMICROBIALS: 1. Zosyn. 2. Fluconazole. 3. Erythromycin. INDWELLINGS: Right chest Port-A-Cath and abdominal drainage catheter. MICROBIOLOGY: Body fluid cultures came back negative. Initial cultures on admission grew E. coli. Urine culture grew Pseudomonas. Repeat urine culture grew Chelsy albicans. PHYSICAL EXAMINATION: GENERAL: Well-developed, elderly man in no distress. HEENT: Head atraumatic, normocephalic. Sclerae anicteric. Buccal mucosa dry. NECK: Supple, trachea midline. CHEST: Rise symmetrical. Breath sounds diminished to bases. HEART: S1, S2. ABDOMEN: Soft. Bowel sounds present. EXTREMITIES: Without cyanosis. ASSESSMENT: 1. Status post Escherichia coli bacteremia secondary to biliary obstruction. 2. Status post unsuccessful ERCP and then fluoroscopic-guided biliary drainage with catheter placement on 07/05/2016. 3. Status post Pseudomonas aeruginosa urinary tract infection with repeat urine culture grew Chelsy albicans. 4. Metastatic urothelial cancer. 5. Diabetic gastroparesis. 6. Right chest Port-A-Cath. PLAN: The patient remains unchanged. Pending new biliary catheter. Continue present care, abx, GI/oncology rec-s. staff Problems: Consultation Date/Type/Reason Admit Date/Time Jun 30, 2016 at 15:42 Initial Consult Date 06/30/16 Type of Consultation: ID Referring Provider: GAMALIEL HAIR MD Exam/Review of Systems Vital Signs Vitals Vital Signs Date Time Temp Pulse Resp B/P Pulse Ox O2 Delivery O2 Flow Rate FiO2 07/11/16 11:30 Nasal Cannula 3 07/11/16 11:05 80 16 136/78 95 07/11/16 10:35 98.0 Intake and Output 07/10/16 07/10/16 07/11/16 15:00 23:00 07:00 Intake Total 250 ml 1200 ml 1060 ml Output Total 250 ml Balance 250 ml 1200 ml 810 ml Results Result Diagram: 07/11/16 0428 07/11/16 0428 Results 24 hrs Laboratory Tests Test 07/11/16 04:28 White Blood Count 12.4 H Red Blood Count 3.45 L Hemoglobin 10.3 L Hematocrit 31.8 L Mean Corpuscular Volume 92.2 Mean Corpuscular Hemoglobin 29.9 Mean Corpuscular Hemoglobin Concent 32.4 Red Cell Distribution Width 18.0 H Platelet Count 334 Mean Platelet Volume 9.3 Neutrophils % 84.7 H Lymphocytes % 7.9 L Monocytes % 5.4 Eosinophils % 0.6 Basophils % 0.1 Nucleated Red Blood Cells % 0.0 Neutrophils # 10.5 H Lymphocytes # 1.0 Monocytes # 0.7 Eosinophils # 0.1 Basophils # 0.0 Nucleated Red Blood Cells # 0.0 Prothrombin Time 15.6 H Prothrombin Time Ratio 1.2 INR International Normalized Ratio 1.23 Activated Partial Thromboplast Time 35.1 H Sodium Level 134 L Potassium Level 3.2 L Chloride Level 100 Carbon Dioxide Level 22 Anion Gap 15 Blood Urea Nitrogen 10 Creatinine 0.44 L Glucose Level 87 Calcium Level 7.7 L Phosphorus Level 2.6 Magnesium Level 1.7 Total Bilirubin 1.6 H Direct Bilirubin 0.80 #H Indirect Bilirubin 0.8 Aspartate Amino Transf (AST/SGOT) 53 H Alanine Aminotransferase (ALT/SGPT) 54 Alkaline Phosphatase 157 H Total Protein 5.4 L Albumin 2.3 L Globulin 3.10 Albumin/Globulin Ratio 0.74 Medications Medications Current Medications Potassium Chloride/Sodium Chloride (NS-KCl 20 Meq) 1,000 ml @ 70 mls/hr [id number] IV Last administered on 07/11/16 00:49; Admin Dose 70 MLS/HR; Start at 16:18 Ondansetron HCl (Zofran Inj) 4 mg Q6H PRN IV NAUSEA AND/OR VOMITING Last administered on 07/11/16 01:14; Admin Dose 4 MG; Start 06/30/16 at 16:30 Acetaminophen (Tylenol Tab) 650 mg Q6H PRN PO PAIN LEVEL 1-3 OR FEVER Last administered on 07/05/16 19:31; Admin Dose 650 MG; Start 06/30/16 at 16:30 Acetaminophen (Tylenol Supp) 650 mg Q6H PRN [place] PAIN LEVEL 1-3 OR FEVER; Start 06/30/16 at 16:30 Acetaminophen/ Hydrocodone Bitart ([place] (5/325)) 1 tab Q6H PRN PO MODERATE PAIN LEVEL 4-6 Last administered on 07/10/16 22:33; Admin Dose 1 TAB; Start at 16:30 Acetaminophen/ Hydrocodone Bitart ([place] (5/325)) 2 tab Q6H PRN PO SEVERE PAIN LEVEL 7-10 Last administered on 07/10/16 13:15; Admin Dose 2 TAB; Start at 16:30 Morphine Sulfate (morphine) 2 mg Q4H PRN IV SEVERE PAIN LEVEL 7-10 Last administered on 07/10/16 09:45; Admin Dose 2 MG; Start 06/30/16 at 16:30 Docusate Sodium (Colace) 100 mg Q12H PRN PO CONSTIPATION; Start 06/30/16 at 16: 30 Magnesium Hydroxide (Milk Of Mag) 30 ml DAILY PRN PO CONSTIPATION; Start at 16:30 Bisacodyl (Dulcolax Supp) 10 mg DAILY PRN [place] CONSTIPATION; Start 06/30/16 at 16 :30 Pantoprazole 40 mg 40 mg DAILY@06 IV Last administered on 07/11/16 05:55; Admin Dose 40 MG; Start 07/01/16 at 06:00 Piperacillin Sod/ Tazobactam Sod (Zosyn 3.375gm/ 100 ml (Pmx)) 100 ml @ 200 mls /hr Q8 IVPB Last administered on 07/11/16 05:55; Admin Dose 200 MLS/HR; Start 06/30/16 at 22:30 Metoclopramide HCl 10 mg 10 mg Q6 IV Last administered on 07/11/16 12:50; Admin Dose 10 MG; Start 07/03/16 at 18:00 Erythromycin Lactobionate 250 mg/Sodium Chloride 100 ml @ 100 mls/hr Q6 IVPB Last administered on 07/11/16 12:50; Admin Dose 100 MLS/HR; Start 07/09/16 at 00: 00 Fluconazole/N/A (Diflucan 200 Mg/ NS (Pmx)/Evac Container) 50 ml @ 50 mls/hr Q24H IVPB Last administered on 07/11/16 12:08; Admin Dose 50 MLS/HR; Start 07/11 at 11:00 MARIELA ROBIN NP July 11, 2016 13:05
--- NOTE | 2016-07-11 14:14 | PN ---
Date/Time of Note Date/Time of Note DATE: 07/11/16 TIME: 14:12 Assessment/Plan VTE Prophylaxis VTE Prophylaxis Intervention: heparin Lines/Catheters IV Catheter Type (from [facility]): Peripheral IV Urinary Cath still in place: No Assessment/Plan Chief Complaint/Hosp Course 1. Sepsis 2nd biliary obstruction s/p attempted unsuccessful ERCP 07/03, biliary sepsis with E coli bacteremia - on IV abx, ID following 2. Transaminitis with Hyperbilirubinemia ? 2nd biliary obstruction ? 2nd tumor vs stent vs stone vs other s/p PTC external biliary drainage -as above 3. Metastatic Urothelial cancer with possible carcinomatosis -heme/onc for tx after sepsis resolution 4. Hx obstructed duodenum with gastric outlet obstruction s/p duodenal stent 5. Steatosis -Eventual nutrition and lifestyle optimization 6. Weight loss probably secondary to above heparin for DVT prophylaxis IV abx zosyn Biliary drainage placed today plan is to give 14 days of IV abx before considering Chemotherapy as per [place], pt is still on clear liquid diet Problems: Subjective 24 Hr Interval Summary Constitutional: no complaints Exam/Review of Systems Vital Signs Vitals Vital Signs Date Time Temp Pulse Resp B/P Pulse Ox O2 Delivery O2 Flow Rate FiO2 07/11/16 11:30 Nasal Cannula 3 07/11/16 11:05 80 16 136/78 95 07/11/16 10:35 98.0 Intake and Output 07/10/16 07/10/16 07/11/16 15:00 23:00 07:00 Intake Total 250 ml 1200 ml 1060 ml Output Total 250 ml Balance 250 ml 1200 ml 810 ml Exam Constitutional: alert Respiratory: clear to auscultation Cardiovascular: regular rate and rhythm Gastrointestinal: soft, No distended Musculoskeletal: nl extremities to inspection Results Result Diagram: 07/11/16 0428 07/11/16 0428 Results 24 hrs Laboratory Tests Test 07/11/16 04:28 White Blood Count 12.4 H Red Blood Count 3.45 L Hemoglobin 10.3 L Hematocrit 31.8 L Mean Corpuscular Volume 92.2 Mean Corpuscular Hemoglobin 29.9 Mean Corpuscular Hemoglobin Concent 32.4 Red Cell Distribution Width 18.0 H Platelet Count 334 Mean Platelet Volume 9.3 Neutrophils % 84.7 H Lymphocytes % 7.9 L Monocytes % 5.4 Eosinophils % 0.6 Basophils % 0.1 Nucleated Red Blood Cells % 0.0 Neutrophils # 10.5 H Lymphocytes # 1.0 Monocytes # 0.7 Eosinophils # 0.1 Basophils # 0.0 Nucleated Red Blood Cells # 0.0 Prothrombin Time 15.6 H Prothrombin Time Ratio 1.2 INR International Normalized Ratio 1.23 Activated Partial Thromboplast Time 35.1 H Sodium Level 134 L Potassium Level 3.2 L Chloride Level 100 Carbon Dioxide Level 22 Anion Gap 15 Blood Urea Nitrogen 10 Creatinine 0.44 L Glucose Level 87 Calcium Level 7.7 L Phosphorus Level 2.6 Magnesium Level 1.7 Total Bilirubin 1.6 H Direct Bilirubin 0.80 #H Indirect Bilirubin 0.8 Aspartate Amino Transf (AST/SGOT) 53 H Alanine Aminotransferase (ALT/SGPT) 54 Alkaline Phosphatase 157 H Total Protein 5.4 L Albumin 2.3 L Globulin 3.10 Albumin/Globulin Ratio 0.74 Medications Medications Current Medications Potassium Chloride/Sodium Chloride (NS-KCl 20 Meq) 1,000 ml @ 70 mls/hr [id number] IV Last administered on 07/11/16 00:49; Admin Dose 70 MLS/HR; Start at 16:18 Ondansetron HCl (Zofran Inj) 4 mg Q6H PRN IV NAUSEA AND/OR VOMITING Last administered on 07/11/16 01:14; Admin Dose 4 MG; Start 06/30/16 at 16:30 Acetaminophen (Tylenol Tab) 650 mg Q6H PRN PO PAIN LEVEL 1-3 OR FEVER Last administered on 07/05/16 19:31; Admin Dose 650 MG; Start 06/30/16 at 16:30 Acetaminophen (Tylenol Supp) 650 mg Q6H PRN [place] PAIN LEVEL 1-3 OR FEVER; Start 06/30/16 at 16:30 Acetaminophen/ Hydrocodone Bitart ([place] (5/325)) 1 tab Q6H PRN PO MODERATE PAIN LEVEL 4-6 Last administered on 07/10/16 22:33; Admin Dose 1 TAB; Start at 16:30 Acetaminophen/ Hydrocodone Bitart ([place] (5/325)) 2 tab Q6H PRN PO SEVERE PAIN LEVEL 7-10 Last administered on 07/10/16 13:15; Admin Dose 2 TAB; Start at 16:30 Morphine Sulfate (morphine) 2 mg Q4H PRN IV SEVERE PAIN LEVEL 7-10 Last administered on 07/10/16 09:45; Admin Dose 2 MG; Start 06/30/16 at 16:30 Docusate Sodium (Colace) 100 mg Q12H PRN PO CONSTIPATION; Start 06/30/16 at 16: 30 Magnesium Hydroxide (Milk Of Mag) 30 ml DAILY PRN PO CONSTIPATION; Start at 16:30 Bisacodyl (Dulcolax Supp) 10 mg DAILY PRN [place] CONSTIPATION; Start 06/30/16 at 16 :30 Pantoprazole 40 mg 40 mg DAILY@06 IV Last administered on 07/11/16 05:55; Admin Dose 40 MG; Start 07/01/16 at 06:00 Piperacillin Sod/ Tazobactam Sod (Zosyn 3.375gm/ 100 ml (Pmx)) 100 ml @ 200 mls /hr Q8 IVPB Last administered on 07/11/16 05:55; Admin Dose 200 MLS/HR; Start 06/30/16 at 22:30 Metoclopramide HCl 10 mg 10 mg Q6 IV Last administered on 07/11/16 12:50; Admin Dose 10 MG; Start 07/03/16 at 18:00 Erythromycin Lactobionate 250 mg/Sodium Chloride 100 ml @ 100 mls/hr Q6 IVPB Last administered on 07/11/16 12:50; Admin Dose 100 MLS/HR; Start 07/09/16 at 00: 00 Fluconazole/N/A (Diflucan 200 Mg/ NS (Pmx)/Evac Container) 50 ml @ 50 mls/hr Q24H IVPB Last administered on 07/11/16 12:08; Admin Dose 50 MLS/HR; Start 07/11 at 11:00 ERNESTINA CANTU July 11, 2016 14:14
[2016-07-11] MEDS: morphine 2 MG INJ IV PRN ×2 (15:36→21:35)
--- NOTE | 2016-07-11 16:43 | CONS ---
Date/Time of Note Date/Time of Note DATE: 07/11/16 TIME: 16:42 Assessment/Plan Assessment/Plan Chief Complaint/Hosp Course 60 year old male with metastatic urothelial cancer who had presented during the last admission with gastric outlet obstruction status post duodenal stent . It was initially thought GI primary and FOLFOX given 06/04/16 based on prelim path and severe obstructive symptoms, however further path review showed primary. Patient now readmitted with sepsis with abdominal pain. # metastatic urothelial cancer - CT A/P demonstrates infiltrative neoplasm involving the cecum, ascending colon and hepatic flexure with extension of tumor to the serosa involving the lateral wall of the duodenum. This has advanced as compared to 05/27/2016. - I had planned to start gemcitabine 1000 mg/m2 D1, 8 and carboplatin AUC 4.5 D1 however will have to hold off for now until adequately treated with at least 14 days of antibiotics for bacteremia. If patient remains stable may be able to give chemo at the end of this week. - discussed with Dr. De, duodenal stent obstructed by tumor, status post new internal biliary catheter today - Dr. Nolan to arrange for POLST form to be filled out # E. coli bacteremia - with sepsis secondary to biliary obstruction s/p attempted unsuccessful ERCP 07/03, s/p external percutaneous biliary drainage 07/05 - Patient now on vanc/zosyn with GNR bacteremia. Last blood cultures were clear from 07/05/16 - will hold on removing the port for now. If ID feels it is necessary to remove and if bacteremia does not clear, will remove at that time # Biliary obstruction - per GI, patient Bili is stable. - s/p percutaneous biliary drain given rise in bilirubin. T bili now down to 1.6 - status post new biliary catheter today 07/11/16 # Diabetic Gastroparesis - cont reglan; erythromycin added as prokinetic agent per GI Problems: Consultation Date/Type/Reason Admit Date/Time Jun 30, 2016 at 15:42 Initial Consult Date 06/30/16 Type of Consultation: Hematology/Oncology Referring Provider: GAMALIEL HAIR MD 24 HR Interval Summary Free Text/Dictation Patient states that he feels better. He does have hiccups and states that the food wants to come back up only when he has hiccups. He walked in the hallway twice today. Exam/Review of Systems Vital Signs Vitals Vital Signs Date Time Temp Pulse Resp B/P Pulse Ox O2 Delivery O2 Flow Rate FiO2 07/11/16 11:30 Nasal Cannula 3 07/11/16 11:05 80 16 136/78 95 07/11/16 10:35 98.0 Intake and Output 07/10/16 07/10/16 07/11/16 15:00 23:00 07:00 Intake Total 250 ml 1200 ml 1060 ml Output Total 250 ml Balance 250 ml 1200 ml 810 ml Exam Constitutional: alert, frail, oriented Head: normocephalic Eyes: icteric, nl conjunctiva ENMT: nl external ears & nose Neck: non-tender, supple Respiratory: clear to auscultation, normal air movement Cardiovascular: regular rate and rhythm Gastrointestinal: soft Musculoskeletal: nl extremities to inspection, nl gait and stance Results Result Diagram: 07/11/16 0428 07/11/16 0428 Results 24 hrs Laboratory Tests Test 07/11/16 04:28 White Blood Count 12.4 H Red Blood Count 3.45 L Hemoglobin 10.3 L Hematocrit 31.8 L Mean Corpuscular Volume 92.2 Mean Corpuscular Hemoglobin 29.9 Mean Corpuscular Hemoglobin Concent 32.4 Red Cell Distribution Width 18.0 H Platelet Count 334 Mean Platelet Volume 9.3 Neutrophils % 84.7 H Lymphocytes % 7.9 L Monocytes % 5.4 Eosinophils % 0.6 Basophils % 0.1 Nucleated Red Blood Cells % 0.0 Neutrophils # 10.5 H Lymphocytes # 1.0 Monocytes # 0.7 Eosinophils # 0.1 Basophils # 0.0 Nucleated Red Blood Cells # 0.0 Prothrombin Time 15.6 H Prothrombin Time Ratio 1.2 INR International Normalized Ratio 1.23 Activated Partial Thromboplast Time 35.1 H Sodium Level 134 L Potassium Level 3.2 L Chloride Level 100 Carbon Dioxide Level 22 Anion Gap 15 Blood Urea Nitrogen 10 Creatinine 0.44 L Glucose Level 87 Calcium Level 7.7 L Phosphorus Level 2.6 Magnesium Level 1.7 Total Bilirubin 1.6 H Direct Bilirubin 0.80 #H Indirect Bilirubin 0.8 Aspartate Amino Transf (AST/SGOT) 53 H Alanine Aminotransferase (ALT/SGPT) 54 Alkaline Phosphatase 157 H Total Protein 5.4 L Albumin 2.3 L Globulin 3.10 Albumin/Globulin Ratio 0.74 Medications Medications Current Medications Potassium Chloride/Sodium Chloride (NS-KCl 20 Meq) 1,000 ml @ 70 mls/hr [id number] IV Last administered on 07/11/16 00:49; Admin Dose 70 MLS/HR; Start at 16:18 Ondansetron HCl (Zofran Inj) 4 mg Q6H PRN IV NAUSEA AND/OR VOMITING Last administered on 07/11/16 15:35; Admin Dose 4 MG; Start 06/30/16 at 16:30 Acetaminophen (Tylenol Tab) 650 mg Q6H PRN PO PAIN LEVEL 1-3 OR FEVER Last administered on 07/05/16 19:31; Admin Dose 650 MG; Start 06/30/16 at 16:30 Acetaminophen (Tylenol Supp) 650 mg Q6H PRN [place] PAIN LEVEL 1-3 OR FEVER; Start 06/30/16 at 16:30 Acetaminophen/ Hydrocodone Bitart ([place] (5/325)) 1 tab Q6H PRN PO MODERATE PAIN LEVEL 4-6 Last administered on 07/10/16 22:33; Admin Dose 1 TAB; Start at 16:30 Acetaminophen/ Hydrocodone Bitart ([place] (5/325)) 2 tab Q6H PRN PO SEVERE PAIN LEVEL 7-10 Last administered on 07/10/16 13:15; Admin Dose 2 TAB; Start at 16:30 Morphine Sulfate (morphine) 2 mg Q4H PRN IV SEVERE PAIN LEVEL 7-10 Last administered on 07/11/16 15:36; Admin Dose 2 MG; Start 06/30/16 at 16:30 Docusate Sodium (Colace) 100 mg Q12H PRN PO CONSTIPATION; Start 06/30/16 at 16: 30 Magnesium Hydroxide (Milk Of Mag) 30 ml DAILY PRN PO CONSTIPATION; Start at 16:30 Bisacodyl (Dulcolax Supp) 10 mg DAILY PRN [place] CONSTIPATION; Start 06/30/16 at 16 :30 Pantoprazole 40 mg 40 mg DAILY@06 IV Last administered on 07/11/16 05:55; Admin Dose 40 MG; Start 07/01/16 at 06:00 Piperacillin Sod/ Tazobactam Sod (Zosyn 3.375gm/ 100 ml (Pmx)) 100 ml @ 200 mls /hr Q8 IVPB Last administered on 07/11/16 15:31; Admin Dose 200 MLS/HR; Start 06/30/16 at 22:30 Metoclopramide HCl 10 mg 10 mg Q6 IV Last administered on 07/11/16 12:50; Admin Dose 10 MG; Start 07/03/16 at 18:00 Erythromycin Lactobionate 250 mg/Sodium Chloride 100 ml @ 100 mls/hr Q6 IVPB Last administered on 07/11/16 12:50; Admin Dose 100 MLS/HR; Start 07/09/16 at 00: 00 Fluconazole/N/A (Diflucan 200 Mg/ NS (Pmx)/Evac Container) 50 ml @ 50 mls/hr Q24H IVPB Last administered on 07/11/16 12:08; Admin Dose 50 MLS/HR; Start 07/11 at 11:00 DARBY KNOWLES MD July 11, 2016 16:43
--- NOTE | 2016-07-11 18:10 | CONS ---
Date/Time of Note Date/Time of Note DATE: 07/11/16 TIME: 18:08 Assessment/Plan Assessment/Plan Additional Assessment/Plan Assessment/Plan Additional Assessment/Plan IMPRESSION: 1. Biliary obstruction. 2. Gram negative bacteremia, either from the urine or from the biliary system. 3. 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 4. 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 Gastroparesis, patient is responded well to combination of erythromycin and Reglan 6. Ingrown tumor over the self-expanding metallic stent. Plan PTC Reglan Liquid diet now PTC today with possible external drainage, and also internal drainage.. Patient has a complete obstruction of the distal part of the bile duct. No dye entered into the duodenum Liver function has improved after external percutaneous biliary drainage aspiration precaution Patient will need a PC declotting of the stent and possible dilatation If this does not work then will have to put another stent Consultation Date/Type/Reason Admit Date/Time Jun 30, 2016 at 15:42 Initial Consult Date 06/30/16 Type of Consultation: Hematology/Oncology Referring Provider: GAMALIEL HAIR MD 24 HR Interval Summary Free Text/Dictation Patient complains of nausea Exam/Review of Systems Vital Signs Vitals Vital Signs Date Time Temp Pulse Resp B/P Pulse Ox O2 Delivery O2 Flow Rate FiO2 07/11/16 11:30 Nasal Cannula 3 07/11/16 11:05 80 16 136/78 95 07/11/16 10:35 98.0 Intake and Output 07/10/16 07/10/16 07/11/16 15:00 23:00 07:00 Intake Total 250 ml 1200 ml 1060 ml Output Total 250 ml Balance 250 ml 1200 ml 810 ml Exam Constitutional: alert, oriented, well developed Psych: nl mood/affect, no complaints Head: atraumatic, normocephalic Eyes: EOMI, PERRL, nl conjunctiva, nl lids, nl sclera ENMT: nl external ears & nose, nl lips & teeth, nl nasal mucosa & septum Neck: non-tender, supple Respiratory: clear to auscultation, normal air movement Cardiovascular: nl pulses, regular rate and rhythm Gastrointestinal: nl liver, spleen, non-tender, soft Musculoskeletal: nl extremities to inspection, nl gait and stance Extremities: normal pulses 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, nl mental status, nl speech, nl strength Skin: nl turgor, No rash or lesions Lymph: nl lymph nodes Results Result Diagram: 07/11/1642707/11/16427 Results 24 hrs Laboratory Tests Test 07/11/16 04:28 White Blood Count 12.4 H Red Blood Count 3.45 L Hemoglobin 10.3 L Hematocrit 31.8 L Mean Corpuscular Volume 92.2 Mean Corpuscular Hemoglobin 29.9 Mean Corpuscular Hemoglobin Concent 32.4 Red Cell Distribution Width 18.0 H Platelet Count 334 Mean Platelet Volume 9.3 Neutrophils % 84.7 H Lymphocytes % 7.9 L Monocytes % 5.4 Eosinophils % 0.6 Basophils % 0.1 Nucleated Red Blood Cells % 0.0 Neutrophils # 10.5 H Lymphocytes # 1.0 Monocytes # 0.7 Eosinophils # 0.1 Basophils # 0.0 Nucleated Red Blood Cells # 0.0 Prothrombin Time 15.6 H Prothrombin Time Ratio 1.2 INR International Normalized Ratio 1.23 Activated Partial Thromboplast Time 35.1 H Sodium Level 134 L Potassium Level 3.2 L Chloride Level 100 Carbon Dioxide Level 22 Anion Gap 15 Blood Urea Nitrogen 10 Creatinine 0.44 L Glucose Level 87 Calcium Level 7.7 L Phosphorus Level 2.6 Magnesium Level 1.7 Total Bilirubin 1.6 H Direct Bilirubin 0.80 #H Indirect Bilirubin 0.8 Aspartate Amino Transf (AST/SGOT) 53 H Alanine Aminotransferase (ALT/SGPT) 54 Alkaline Phosphatase 157 H Total Protein 5.4 L Albumin 2.3 L Globulin 3.10 Albumin/Globulin Ratio 0.74 Medications Medications Current Medications Potassium Chloride/Sodium Chloride (NS-KCl 20 Meq) 1,000 ml @ 70 mls/hr [id number] IV Last administered on 07/11/16 00:49; Admin Dose 70 MLS/HR; Start at 16:18 Ondansetron HCl (Zofran Inj) 4 mg Q6H PRN IV NAUSEA AND/OR VOMITING Last administered on 07/11/16 15:35; Admin Dose 4 MG; Start 06/30/16 at 16:30 Acetaminophen (Tylenol Tab) 650 mg Q6H PRN PO PAIN LEVEL 1-3 OR FEVER Last administered on 07/05/16 19:31; Admin Dose 650 MG; Start 06/30/16 at 16:30 Acetaminophen (Tylenol Supp) 650 mg Q6H PRN [place] PAIN LEVEL 1-3 OR FEVER; Start 06/30/16 at 16:30 Acetaminophen/ Hydrocodone Bitart ([place] (5/325)) 1 tab Q6H PRN PO MODERATE PAIN LEVEL 4-6 Last administered on 07/10/16 22:33; Admin Dose 1 TAB; Start at 16:30 Acetaminophen/ Hydrocodone Bitart ([place] (5/325)) 2 tab Q6H PRN PO SEVERE PAIN LEVEL 7-10 Last administered on 07/10/16 13:15; Admin Dose 2 TAB; Start at 16:30 Morphine Sulfate (morphine) 2 mg Q4H PRN IV SEVERE PAIN LEVEL 7-10 Last administered on 07/11/16 15:36; Admin Dose 2 MG; Start 06/30/16 at 16:30 Docusate Sodium (Colace) 100 mg Q12H PRN PO CONSTIPATION; Start 06/30/16 at 16: 30 Magnesium Hydroxide (Milk Of Mag) 30 ml DAILY PRN PO CONSTIPATION; Start at 16:30 Bisacodyl (Dulcolax Supp) 10 mg DAILY PRN [place] CONSTIPATION; Start 06/30/16 at 16 :30 Pantoprazole 40 mg 40 mg DAILY@06 IV Last administered on 07/11/16 05:55; Admin Dose 40 MG; Start 07/01/16 at 06:00 Piperacillin Sod/ Tazobactam Sod (Zosyn 3.375gm/ 100 ml (Pmx)) 100 ml @ 200 mls /hr Q8 IVPB Last administered on 07/11/16 15:31; Admin Dose 200 MLS/HR; Start 06/30/16 at 22:30 Metoclopramide HCl 10 mg 10 mg Q6 IV Last administered on 07/11/16 12:50; Admin Dose 10 MG; Start 07/03/16 at 18:00 Erythromycin Lactobionate 250 mg/Sodium Chloride 100 ml @ 100 mls/hr Q6 IVPB Last administered on 07/11/16 12:50; Admin Dose 100 MLS/HR; Start 07/09/16 at 00: 00 Fluconazole/N/A (Diflucan 200 Mg/ NS (Pmx)/Evac Container) 50 ml @ 50 mls/hr Q24H IVPB Last administered on 07/11/16t 12:08; Admin Dose 50 MLS/HR; Start 07/11 at 11:00 TIANNA SALINAS MD July 11, 2016 18:10
[2016-07-11] MEDS ORDERED: POTASSIUM CHLORIDE (SR) 20 MEQ TAB PO ONE (21:00)
[2016-07-12] VITALS (88 sets, daily range): BP systolic 70–150; BP diastolic 47–89; PULSE 90–164; RESP 12–41
[2016-07-12] MEDS: ONDANSETRON 4 MG INJ IV PRN (03:27)
[2016-07-12] MEDS: PIPER-TAZO 3.375 GM IV (PMX) 100 ML IVPB SCH (05:20)
[2016-07-12 05:23] LABS: ADD SCAN DIFF NO
[2016-07-12 05:26] LABS: BASOPHILS % 0.1 % (0.0-2.0); EOSINOPHILS % 0.3 % (0.0-7.0); HEMATOCRIT 31.4 % (42.0-52.0); HEMOGLOBIN 10.6 g/dl (14.0-18.0); LYMPHOCYTES # 1.3 10^3/ul (0.8-2.9); LYMPHOCYTES % 9.4 % (15.0-51.0); MEAN CORPUSCULAR HEMOGLOBIN 30.9 pg (29.0-33.0); MEAN CORPUSCULAR HGB CONC 33.8 g/dl (32.0-37.0); MEAN CORPUSCULAR VOLUME 91.5 fl (82.0-101.0); MEAN PLATELET VOLUME 9.1 fl (7.4-10.4); MONOCYTE # 0.7 10^3/ul (0.3-0.9); MONOCYTES % 4.7 % (0.0-11.0); NEUTROPHILS % 84.4 % (39.0-77.0); PLATELET COUNT 372 10^3/UL (140-415); RED BLOOD COUNT 3.43 10^6/ul (4.70-6.10); RED CELL DISTRIBUTION WIDTH 18.1 % (11.5-14.5); WHITE BLOOD COUNT 14.2 10^3/ul (4.8-10.8)
[2016-07-12 06:05] LABS: ALBUMIN 2.5 g/dl (3.3-4.9); ALBUMIN/GLOBULIN RATIO 0.86; BILIRUBIN,INDIRECT 0.9 mg/dl (0-1.1); BILIRUBIN,TOTAL 1.9 mg/dl (0.2-1.3); CREATININE 0.44 mg/dl (0.61-1.24); POTASSIUM 3.4 mmol/L (3.5-5.1); TOTAL PROTEIN 5.4 g/dl (6.1-8.1)
[2016-07-12] MEDS: ERYTHROMYCIN LACTOBIONATE 250 MG in SOD CHLORIDE 0.9% 100 ML IVPB SCH ×3 (06:27→21:07)
[2016-07-12] MEDS: METOCLOPRAMIDE 10 MG INJ IV SCH ×4 (06:27→23:37)
[2016-07-12] MEDS: PANTOPRAZOLE 40 MG INJ IV SCH (06:28)
--- NOTE | 2016-07-12 07:02 | RADRPT ---
PROCEDURE: XR Chest. CLINICAL INDICATION: Preop TECHNIQUE: PA and lateral views of the chest were obtained COMPARISON: Chest 06/30/2016 FINDINGS: Again noted is a right infusion port catheter unchanged. There is a drainage catheter projected ove r the right upper quadrant of the abdomen. The patient has a poor inspiration. There is bilateral basilar consolidations which may all be due to atelectasis however infiltrates cannot be excluded. The remainder of the lungs are clear. No evidence of pleural effusions and pneumothorax. The heart is upper limits of normal in size without pulmonary vascular congestion. IMPRESSION: 1. Bibasilar consolidations most likely all due to atelectasis however infiltrates cannot be exclud ed. 2. No evidence congestive heart failure. RPTAT:AAJJ Physician Maritza Date Time Electronically viewed and signed by Physician Maritza on 07/12/2016 07:01 /
[2016-07-12] MEDS ORDERED: LIDOCAINE 2% (SDV) 5 ML INJ ONE (07:47)
[2016-07-12] MEDS ORDERED: PROPOFOL 40 ML ONE (07:47)
--- NOTE | 2016-07-12 09:21 | RADRPT ---
PROCEDURE: CHEST 1VW CLINICAL INDICATION: Shortness of breath TECHNIQUE: Single frontal view of the chest was obtained COMPARISON: 07/11/2016 FINDINGS: Stable right chest wall port catheter. The cardiac size is normal. Aortic vascular calcifications are demonstrated. There is no pulmonary vascular congestion. Developing left lower lobe opacity which may represent aspiration or pneumonia. Mild degenerative changes of the visualized osseous structures are visualized. IMPRESSION: 1. Developing left lower lobe opacity which may represent aspiration or pneumonia. 2. Atherosclerosis. RPTAT:PP .Scott Hannah MD, MD Date Time Electronically viewed and signed by .Scott Hannah MD, on 07/12/2016 09:20 .V/
[2016-07-12] MEDS ORDERED: ALBUTEROL 0.5% (NEB) 2.5 MG/0.5 ML AMP ONE (10:24)
[2016-07-12] MEDS ORDERED: ALBUTEROL 0.083% (NEB) 2.5 MG/3 ML AMP HHN ONE (10:30)
[2016-07-12] MEDS ORDERED: NORepinephrine 8MG/250 ML (PMX 250 ML ONE (10:46)
[2016-07-12] MEDS ORDERED: NORepinephrine 8MG/250 ML (PMX 250 ML IV PRN ×2 (11:00→16:30)
--- NOTE | 2016-07-12 11:14 | RADRPT ---
PROCEDURE: Chest x-ray CLINICAL INDICATION: Shortness of breath TECHNIQUE: Chest single view COMPARISON: To 07/12/2016 FINDINGS: As before there is right IJ Port-A-Cath. Heart is normal in size. The pulmonary vessels are mildly prominent suggesting component of CHF. There is worsening alveolar infiltrate throughout the left lung is stable right basilar atelectasis. IMPRESSION: 1. Worsening left lung alveolar consolidation / pneumonia. 2. Stable right lower lobe atelectasis. 3. Pulmonary vessels slightly prominent. 4. Port-A-Cath RPTAT: HH .Micky Cottrell MD, Date Time Electronically viewed and signed by .Micky Cottrell MD, on 07/12/2016 11:14 .W/
[2016-07-12 11:17] LABS: AADO2 Arterial 303.6 mmHg (7.0-24.0); Allen Test ACCEPTAB; Arterial Base Excess -6.7 mmol/L (-3.0-3); Arterial COHb 1.5 % (0.0-3.0); Arterial Fraction of Oxyhgb 73.6 % (93.0-99.0); Arterial HCO3 17.3 mmol/L (22.0-26.0); Arterial MetHb 0.1 % (0.0-1.5); Arterial Total Hemglobin 13.7 g/dl (12.0-18.0); MODE MASK - SIMPLE
--- NOTE | 2016-07-12 11:26 | PN ---
DATE: 07/12/2016 I have had an extensive conversation with patient's oncologist, Dr. Mercado, on 07/07/2016, and have con veyed the information to Dr. Harden that the patient is to continue receiving aggressive intervention for underlying urothelial cancer with widespread metastasis. I do suggest that we address patient's code status and POLST form prior to discharge. I will discus s this with Dr. Harden. Dictated By: AMANUEL BRAMBILA MD, LP/ANN MARIE Conf#: [id number] DID#: [id number]
[2016-07-12] MEDS ORDERED: morphine 2 MG INJ IV ONE (11:30)
--- NOTE | 2016-07-12 11:47 | CONS ---
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 Stent functioned almost for 4 weeks. The patient was tolerating feeding yesterday on dialysis. The patient was tolerating his diet. Yesterday Dr. Naldo Oneal called me while doing cholangiogram and placing the biliary stent internally. He found t he tumor was going over the proximal end of the stent and almost occluding, so the patient underwent upper endoscopy today and surprisingly there was 1 liter of fluid, which was a clear-colored fluid and it was completely removed endoscopically; however, for the fear that he might have aspirated 5 t o 10 mL and his oxygen was ranging from 90 to 94, anesthesiologist did not feel comfortable transfer ring the patient to the floor or tele floor and he wanted the patient to stay in the ICU for further monitoring purposes. We gave bronchodilator treatment. The patient also was given steroid and 1 d ose of Cipro, contacted the hospital, Dr. Armstrong. I spoke to him face to face and subsequently tra nsferred the patient to the intensive care unit for further management. PLAN: Continue present care. Continue antibiotic, bronchodilator, pulmonary toileting, and once he is more stable, we would make an attempt to pass another duodenal stent. I do not think the patient is a surgical candidate for gastrojejunostomy. In the interim, if the pa tient is stable, proceed with the chemotherapy. Dictated By: TIANNA WILSON/ANN MARIE Conf#: [id number] DID#: [id number]
[2016-07-12] MEDS: FLUCONAZOLE IVPB SCH (12:42)
[2016-07-12] MEDS: NS 100 MG IVPB SCH (12:42)
[2016-07-12] MEDS: EVAC CONTAINER IVPB SCH (12:42)
--- NOTE | 2016-07-12 13:17 | GILP ---
DATE OF PROCEDURE: PROCEDURE: Esophagogastroduodenoscopy. SURGEON: Tianna Salinas MD INDICATION: A 60-year-old male undergoing this procedure for gastric outlet obstruction. The patie nt had a tumor in the third part and the second part of the duodenum. A self-expanding non-covered metal stent was successfully deployed and the patient symptomatically improved drastically. However , the symptoms came back after 3 to 4 weeks. The purpose is to evaluate the upper GI tract and rule out blockage of the stent. INFORMED CONSENT: The risk of the procedure, related and unrelated complications, anesthetic risks, alternatives discussed and informed consent was obtained. DESCRIPTION OF PROCEDURE: The patient was brought to the GI lab, sedated by the anesthesiologist. After optimal sedation, scope was passed with much ease into the esophagus. There was reflux of stephanie ar liquid into the mid portion of the esophagus constantly aspirated making sure it does not go into the lungs. In the stomach, there was almost like 800 to 900 mL of fluid collected, which was aspir ated and made sure the whole stomach was completely emptied. After that, scope was advanced. The s tent margin was barely identified and tumor had grown over the stent almost completely obstructing t he stent in the proximal part. The plastic biliary stent was also identified, which was going throu gh the tumor. The rest of the lumen appeared open. The scope was then gradually withdrawn with go od patient tolerance. IMPRESSION: 1. Gastric outlet obstruction. 2. 900 to 1 liter of fluid was removed. 3. Biliary plastic stent identified. 4. The tumor growing over the stent and almost completely obstructing the lumen. PLAN: At this point, either subject the patient for a gastrojejunostomy or make an attempt to put a nother stent. We will pass the NG tube and connect it to suction in the interim. Dictated By: TIANNA WILSON/ANN MARIE Conf#: [id number] DID#: [id number] CC: TIANNA SALINAS MD; GAMALIEL HAIR MD;*EndCC*
--- NOTE | 2016-07-12 13:24 | CONS ---
Date/Time of Note Date/Time of Note DATE: 07/12/16 TIME: 13:24 Consultation Date/Type/Reason Admit Date/Time Jun 30, 2016 at 15:42 Date of Consultation: July 12, 2016 Type of Consultation: pulmonary, icu Reason for Consultation dictated. # [id number] Constitutional: no complaints Eyes: no complaints Psychological: nl mood/affect, no complaints Past Medical History Medical History: no pertinent history Past Surgical History Past Surgical Hx: no surgical history Social History Alcohol Use: none Smoking Status: Never smoker Drug Use: none Exam/Review of Systems Vital Signs Vitals Vital Signs Date Time Temp Pulse Resp B/P Pulse Ox O2 Delivery O2 Flow Rate FiO2 07/12/16 12:42 138 35 87/61 92 07/12/16 12:27 High Flow 07/12/16 11:52 99.9 07/12/16 11:12 100 07/12/16 10:30 3.0 Intake and Output 07/11/16 07/11/16 07/12/16 15:00 23:00 07:00 Intake Total 1050 ml 1175 ml Output Total 10 ml 310 ml Balance -10 ml 740 ml 1175 ml Results Result Diagram: 07/12/16 0439 07/12/16 0431 Results 24 hrs Laboratory Tests Test 07/12/16 04:31 07/12/16 04:39 07/12/16 10:47 Sodium Level 134 L Potassium Level 3.4 L Chloride Level 103 Carbon Dioxide Level 23 Anion Gap 11 Blood Urea Nitrogen 9 Creatinine 0.44 L Glucose Level 89 Calcium Level 8.0 L Magnesium Level 1.6 L Total Bilirubin 1.9 H Direct Bilirubin 1.00 H Indirect Bilirubin 0.9 Aspartate Amino Transf (AST/SGOT) 55 H Alanine Aminotransferase (ALT/SGPT) 59 Alkaline Phosphatase 159 H Total Protein 5.4 L Albumin 2.5 L Globulin 2.90 Albumin/Globulin Ratio 0.86 White Blood Count 14.2 H Red Blood Count 3.43 L Hemoglobin 10.6 L Hematocrit 31.4 L Mean Corpuscular Volume 91.5 Mean Corpuscular Hemoglobin 30.9 Mean Corpuscular Hemoglobin Concent 33.8 Red Cell Distribution Width 18.1 H Platelet Count 372 Mean Platelet Volume 9.1 Neutrophils % 84.4 H Lymphocytes % 9.4 L Monocytes % 4.7 Eosinophils % 0.3 Basophils % 0.1 Nucleated Red Blood Cells % 0.0 Neutrophils # 12.0 H Lymphocytes # 1.3 Monocytes # 0.7 Eosinophils # 0.0 Basophils # 0.0 Nucleated Red Blood Cells # 0.0 Blood Gas Specimen Source Blood arterial Arterial Blood Date Drawn 07/12/2016 11:05:04 AM Arterial Blood pH (Temp corrected) 7.373 Arterial Blood pCO2 (Temp correct) 30.4 L Arterial Blood pO2 (Temp corrected) 40.3 *L Arterial Blood HCO3 17.3 L Arterial Blood Base Excess -6.7 L Arterial Blood Oxygen Saturation 74.8 L Og Test ACCEPTAB Arterial Blood Gas Puncture Site Right Radial Arterial Blood Carboxyhemoglobin 1.5 Arterial Blood Methemoglobin 0.1 Blood Gas A-a O2 Differential 303.6 H Oxyhemoglobin Percent 73.6 L Total Hemoglobin 13.7 Blood Gas Temperature 37.0 Blood Gas Modality MASK - SIMPLE FiO2 53.0 Blood Gas Critical Value Read Back Linda DYE RN Blood Gas Notified Whom PRANAYD Blood Gas Notified Time 07/12/2016 11:17:40 AM Medications Medications Current Medications Potassium Chloride/Sodium Chloride (NS-KCl 20 Meq) 1,000 ml @ 70 mls/hr [id number] IV Last administered on 07/11/16 23:32; Admin Dose 70 MLS/HR; Start at 16:18 Ondansetron HCl (Zofran Inj) 4 mg Q6H PRN IV NAUSEA AND/OR VOMITING Last administered on 07/12/16 03:27; Admin Dose 4 MG; Start 06/30/16 at 16:30 Acetaminophen (Tylenol Tab) 650 mg Q6H PRN PO PAIN LEVEL 1-3 OR FEVER Last administered on 07/05/16 19:31; Admin Dose 650 MG; Start 06/30/16 at 16:30 Acetaminophen (Tylenol Supp) [address] PAIN LEVEL 1-3 OR FEVER; Start 06/30/16 at 16:30 Acetaminophen/ Hydrocodone Bitart ([place] (5/325)) 1 tab Q6H PRN PO MODERATE PAIN LEVEL 4-6 Last administered on 07/10/16 22:33; Admin Dose 1 TAB; Start at 16:30 Acetaminophen/ Hydrocodone Bitart ([place] (5/325)) 2 tab Q6H PRN PO SEVERE PAIN LEVEL 7-10 Last administered on 07/10/16 13:15; Admin Dose 2 TAB; Start at 16:30 Morphine Sulfate (morphine) 2 mg Q4H PRN IV SEVERE PAIN LEVEL 7-10 Last administered on 07/11/16 21:35; Admin Dose 2 MG; Start 06/30/16 at 16:30 Docusate Sodium (Colace) 100 mg Q12H PRN PO CONSTIPATION; Start 06/30/16 at 16: 30 Magnesium Hydroxide (Milk Of Mag) 30 ml DAILY PRN PO CONSTIPATION; Start at 16:30 Bisacodyl (Dulcolax Supp) [address] CONSTIPATION; Start 06/30/16 at 16 :30 Pantoprazole 40 mg 40 mg DAILY@06 IV Last administered on 07/12/16 06:28; Admin Dose 40 MG; Start 07/01/16 at 06:00 Piperacillin Sod/ Tazobactam Sod (Zosyn 3.375gm/ 100 ml (Pmx)) 100 ml @ 200 mls /hr Q8 IVPB Last administered on 07/12/16 05:20; Admin Dose 200 MLS/HR; Start 06/30/16 at 22:30 Metoclopramide HCl 10 mg 10 mg Q6 IV Last administered on 07/12/16 12:17; Admin Dose 10 MG; Start 07/03/16 at 18:00 Erythromycin Lactobionate 250 mg/Sodium Chloride 100 ml @ 100 mls/hr Q6 IVPB Last administered on 07/12/16 13:06; Admin Dose 100 MLS/HR; Start 07/09/16 at 00: 00 Fluconazole 100 mg/N/A 50 ml @ 50 mls/hr Q24H IVPB Last administered on 12:42; Admin Dose 50 MLS/HR; Start 07/11/16 at 11:00 Norepinephrine (Levophed) 250 ml @ 1.875 mls/ hr TITRATE PRN IV BLOOD PRESSURE SUPPORT Last administered on 07/12/16 11:13; Admin Dose 3.75 MLS/HR; Start 07/12/16 at 11:[address] July 12, 2016 13:24
[2016-07-12] MEDS ORDERED: VANCOMYCIN IV PER PHARMACY XX SCH (13:30)
--- NOTE | 2016-07-12 13:46 | CONS ---
DATE OF ADMISSION: 06/30/2016 DATE OF CONSULTATION: 07/12/2016 TYPE OF CONSULTATION: Pulmonary critical care consult. REASON FOR CONSULTATION: Evaluation of shortness of breath. REFERRING PHYSICIAN: Handy Krause MD HISTORY OF PRESENT ILLNESS: Mr. Paz is a 60-year-old male who was admitted on the of last month with complaints of not feeling well. On evaluation, the patient was diagnosed with ga stric outlet obstruction. The patient underwent EGD this morning. However, after the procedure, th e patient became much more short of breath. A stat chest x-ray was done which is showing extensive infiltrate involving the left lung, indicative of possibly aspiration pneumonia. The patient has be en transferred to PCU because there is no immediate ICU bed available. By the time I saw him, the p atient is on high flow oxygen and according to him is feeling comfortable now. The patient also di d not appear to be in any distress. PAST MEDICAL HISTORY: The patient with a history of: 1. Gastric cancer with apparent metastasis. 2. Sepsis. CURRENT MEDICATIONS: 1. Erythromycin 250 mg q.6h. 2. Fluconazole 200 mg IV daily. 3. Zosyn 3.375 grams q.8h. 4. DuoNeb q.6h. p.r.n. 5. Hydrocodone on a p.r.n. basis. 6. Morphine on a p.r.n. basis. 7. Protonix 40 mg IV daily. ALLERGIES: NONE. SOCIAL HISTORY: No history of any alcohol, drug abuse. FAMILY HISTORY: No history of any malignancy in the family. Occupational history: The patient cur rently on disability. REVIEW OF SYSTEMS: The patient is reporting decreased shortness of breath. Denies any high fever, chills, chest pain, cough, sputum production, any nausea, vomiting. Denies any fever, chills, any e sussy. Denies any melena or hematochezia. He has lost weight. PHYSICAL EXAMINATION: GENERAL: Young elderly male, awake, alert, currently in no distress. VITAL SIGNS: Temperature is 99 degree Fahrenheit, heart rate is 130, sinus rhythm, blood pressure i s 88/65, respiratory rate is 22 per minute, O2 sat 92% on high flow oxygen. HEENT: Supple neck, no JVD, no lymphadenopathy, midline trachea, no thyromegaly. Patient has fair dentition. Pupils are small bilaterally. CHEST: Diminished but clear breath sounds bilaterally. HEART: S1, S2 audible, no murmurs, tachycardic, regular rhythm. ABDOMEN: Soft. Bowel sounds are audible, nondistended, nontender. EXTREMITIES: No peripheral edema. Pulses 1+ bilaterally. NEUROLOGIC: Cranial nerves are normal. There is no motor deficit. IMAGING: Chest x-ray was reviewed from today which is showing extensive infiltrate involving the le ft lung. LABORATORY DATA: ABG done on supplemental oxygen at 10:47 a.m. today, pH 7.37, CO2 of 30, pO2 of 40 . After that, the patient was put on high flow oxygen with improving O2 saturation. Labs from toda y, white count is 14.2, hemoglobin 10.6, platelet count of 372. Sodium 134, potassium 3.4, chloride 103, bicarbonate 23, glucose of 89, BUN 9, creatinine 0.44. ASSESSMENT AND PLAN: 1. Patient admitted for gastric outlet obstruction due to gastric cancer, status post EGD, likely w ith significant aspiration involving the left lung. 2. Hypoxemia with improved oxygenation on high flow oxygen. RECOMMENDATIONS: Add IV vancomycin to be dosed by the pharmacy. Add Solu-Medrol 40 mg q.6h. Obtai n followup chest x-ray in 24 hours. The patient will be admitted to ICU. If the patient's conditio n worsens, he may require to be intubated. Dictated By: MIGUEL LLAMAS/NTS Conf#: [id number] DID#: [id number]
--- NOTE | 2016-07-12 14:08 | PN ---
Date/Time of Note Date/Time of Note DATE: 07/12/16 TIME: 14:00 Assessment/Plan VTE Prophylaxis VTE Prophylaxis Intervention: SCD's Lines/Catheters IV [facility]ter Type (from [facility]): [place] Urinary Cath still in place: No Assessment/Plan Chief Complaint/Hosp Course 1. Sepsis 2nd biliary obstruction s/p attempted unsuccessful ERCP 07/03, biliary sepsis with E coli bacteremia - on IV abx, ID following 2. Transaminitis with Hyperbilirubinemia 2nd biliary obstruction from metastatic cancer -as above 3. Metastatic Urothelial cancer with possible carcinomatosis -heme/onc to start chemotherapy 4. Hx obstructed duodenum with gastric outlet obstruction s/p duodenal stent Repeat duodenal stent placed today 5. Steatosis -Eventual nutrition and lifestyle optimization 6. Acute respiratory distress secondary to aspiration pneumonia Transfer telemetry Continue Eleazar and Tadeo Pulmonology consultation appreciated Prophylaxis: SCDs Problems: Subjective 24 Hr Interval Summary Respiratory: shortness of breath Exam/Review of Systems Vital Signs Vitals Vital Signs Date Time Temp Pulse Resp B/P Pulse Ox O2 Delivery O2 Flow Rate FiO2 07/12/16 13:32 134 39 82/60 93 07/12/16 13:22 High Flow 07/12/16 11:52 99.9 07/12/16 11:12 100 07/12/16 10:30 3.0 Intake and Output 07/11/16 07/11/16 07/12/16 15:00 23:00 07:00 Intake Total 1050 ml 1175 ml Output Total 10 ml 310 ml Balance -10 ml 740 ml 1175 ml Exam Constitutional: alert Respiratory: labored breathing Cardiovascular: regular rate and rhythm Gastrointestinal: soft, No distended Musculoskeletal: nl extremities to inspection Results Result Diagram: 07/12/16 0439 07/12/16 0431 Results 24 hrs Laboratory Tests Test 07/12/16 04:31 07/12/16 04:39 07/12/16 10:47 Sodium Level 134 L Potassium Level 3.4 L Chloride Level 103 Carbon Dioxide Level 23 Anion Gap 11 Blood Urea Nitrogen 9 Creatinine 0.44 L Glucose Level 89 Calcium Level 8.0 L Magnesium Level 1.6 L Total Bilirubin 1.9 H Direct Bilirubin 1.00 H Indirect Bilirubin 0.9 Aspartate Amino Transf (AST/SGOT) 55 H Alanine Aminotransferase (ALT/SGPT) 59 Alkaline Phosphatase 159 H Total Protein 5.4 L Albumin 2.5 L Globulin 2.90 Albumin/Globulin Ratio 0.86 White Blood Count 14.2 H Red Blood Count 3.43 L Hemoglobin 10.6 L Hematocrit 31.4 L Mean Corpuscular Volume 91.5 Mean Corpuscular Hemoglobin 30.9 Mean Corpuscular Hemoglobin Concent 33.8 Red Cell Distribution Width 18.1 H Platelet Count 372 Mean Platelet Volume 9.1 Neutrophils % 84.4 H Lymphocytes % 9.4 L Monocytes % 4.7 Eosinophils % 0.3 Basophils % 0.1 Nucleated Red Blood Cells % 0.0 Neutrophils # 12.0 H Lymphocytes # 1.3 Monocytes # 0.7 Eosinophils # 0.0 Basophils # 0.0 Nucleated Red Blood Cells # 0.0 Blood Gas Specimen Source Blood arterial Arterial Blood Date Drawn 07/12/2016 11:05:04 AM Arterial Blood pH (Temp corrected) 7.373 Arterial Blood pCO2 (Temp correct) 30.4 L Arterial Blood pO2 (Temp corrected) 40.3 *L Arterial Blood HCO3 17.3 L Arterial Blood Base Excess -6.7 L Arterial Blood Oxygen Saturation 74.8 L Og Test ACCEPTAB Arterial Blood Gas Puncture Site Right Radial Arterial Blood Carboxyhemoglobin 1.5 Arterial Blood Methemoglobin 0.1 Blood Gas A-a O2 Differential 303.6 H Oxyhemoglobin Percent 73.6 L Total Hemoglobin 13.7 Blood Gas Temperature 37.0 Blood Gas Modality MASK - SIMPLE FiO2 53.0 Blood Gas Critical Value Read Back Linda DYE RN Blood Gas Notified Whom YVON Blood Gas Notified Time 07/12/2016 11:17:40 AM Medications Medications Current Medications Potassium Chloride/Sodium Chloride (NS-KCl 20 Meq) 1,000 ml @ 70 mls/hr [id number] IV Last administered on 07/11/16 23:32; Admin Dose 70 MLS/HR; Start at 16:18 Ondansetron HCl (Zofran Inj) 4 mg Q6H PRN IV NAUSEA AND/OR VOMITING Last administered on 07/12/16 03:27; Admin Dose 4 MG; Start 06/30/16 at 16:30 Acetaminophen (Tylenol Tab) 650 mg Q6H PRN PO PAIN LEVEL 1-3 OR FEVER Last administered on 07/05/16 19:31; Admin Dose 650 MG; Start 06/30/16 at 16:30 Acetaminophen (Tylenol Supp) 650 mg Q6H PRN [place] PAIN LEVEL 1-3 OR FEVER; Start 06/30/16 at 16:30 Acetaminophen/ Hydrocodone Bitart ([place] (5/325)) 1 tab Q6H PRN PO MODERATE PAIN LEVEL 4-6 Last administered on 07/10/16 22:33; Admin Dose 1 TAB; Start at 16:30 Acetaminophen/ Hydrocodone Bitart ([place] (5/325)) 2 tab Q6H PRN PO SEVERE PAIN LEVEL 7-10 Last administered on 07/10/16 13:15; Admin Dose 2 TAB; Start at 16:30 Morphine Sulfate (morphine) 2 mg Q4H PRN IV SEVERE PAIN LEVEL 7-10 Last administered on 07/11/16 21:35; Admin Dose 2 MG; Start 06/30/16 at 16:30 Docusate Sodium (Colace) 100 mg Q12H PRN PO CONSTIPATION; Start 06/30/16 at 16: 30 Magnesium Hydroxide (Milk Of Mag) 30 ml DAILY PRN PO CONSTIPATION; Start at 16:30 Bisacodyl (Dulcolax Supp) 10 mg DAILY PRN [place] CONSTIPATION; Start 06/30/16 at 16 :30 Pantoprazole 40 mg 40 mg DAILY@06 IV Last administered on 07/12/16 06:28; Admin Dose 40 MG; Start 07/01/16 at 06:00 Piperacillin Sod/ Tazobactam Sod (Zosyn 3.375gm/ 100 ml (Pmx)) 100 ml @ 200 mls /hr Q8 IVPB Last administered on 07/12/16 05:20; Admin Dose 200 MLS/HR; Start 06/30/16 at 22:30 Metoclopramide HCl 10 mg 10 mg Q6 IV Last administered on 07/12/16 12:17; Admin Dose 10 MG; Start 07/03/16 at 18:00 Erythromycin Lactobionate 250 mg/Sodium Chloride 100 ml @ 100 mls/hr Q6 IVPB Last administered on 07/12/16 13:06; Admin Dose 100 MLS/HR; Start 07/09/16 at 00: 00 Fluconazole 100 mg/N/A 50 ml @ 50 mls/hr Q24H IVPB Last administered on 12:42; Admin Dose 50 MLS/HR; Start 07/11/16 at 11:00 Norepinephrine (Levophed) 250 ml @ 1.875 mls/ hr TITRATE PRN IV BLOOD PRESSURE SUPPORT Last administered on 07/12/16 11:13; Admin Dose 3.75 MLS/HR; Start 07/12/16 at 11:00 Methylprednisolone Sodium Succinate 40 mg 40 mg Q6 IV ; Start 07/12/16 at 13:30 Vancomycin HCl 1.75 gm/Sodium Chloride 500 ml @ 125 mls/hr ONCE IVPB ; Start at 14:30; Stop 07/12/16 at 18:29 Vancomycin HCl (Vancocin) 250 ml @ 125 mls/hr Q8H IVPB ; Start 07/12/16 at 23:00 ERNESTINA CANTU July 12, 2016 14:08
--- NOTE | 2016-07-12 14:16 | CONS ---
Date/Time of Note Date/Time of Note DATE: 07/12/16 TIME: 14:10 Assessment/Plan Assessment/Plan Chief Complaint/Hosp Course SUBJECTIVE: S/p EGD this am with increased SOB post procedure, no fevers, nad ANTIMICROBIALS: 1. Zosyn. 2. Fluconazole. 3. Erythromycin. 4. Vanco INDWELLINGS: Right chest Port-A-Cath and abdominal drainage catheter. MICROBIOLOGY: Body fluid cultures came back negative. Initial cultures on admission grew E. coli. Urine culture grew Pseudomonas. Repeat urine culture grew Chelsy albicans. PHYSICAL EXAMINATION: GENERAL: Well-developed, elderly man in no distress. HEENT: Head atraumatic, normocephalic. Sclerae anicteric. Buccal mucosa dry. NECK: Supple, trachea midline. CHEST: Rise symmetrical. Breath sounds diminished to bases. HEART: S1, S2. ABDOMEN: Soft. Bowel sounds present. EXTREMITIES: Without cyanosis. ASSESSMENT: 1. Acute resp failure, possible aspiration during procedure 2. Status post Escherichia coli bacteremia 3. Status post unsuccessful ERCP and then fluoroscopic-guided biliary drainage with catheter placement on 07/05/2016. 4. Status post Pseudomonas aeruginosa urinary tract infection with repeat urine culture grew Chelsy albicans. 5. Metastatic urothelial cancer. 6. Diabetic gastroparesis. 7. Right chest Port-A-Cath. 8. Gastric outlet obstruction by tumor PLAN: Increased SOB with worsening CXR, Vanco was added, will change Zosyn to Merrem, pulmonary rec-s noted, f/u GI/surgical/oncology rec-s [facility] staff Problems: Consultation Date/Type/Reason Admit Date/Time Jun 30, 2016 at 15:42 Initial Consult Date 06/30/16 Type of Consultation: ID Referring Provider: GAMALIEL HAIR MD Exam/Review of Systems Vital Signs Vitals Vital Signs Date Time Temp Pulse Resp B/P Pulse Ox O2 Delivery O2 Flow Rate FiO2 07/12/16 14:02 134 30 94 07/12/16 13:52 79/60 07/12/16 13:22 High Flow 07/12/16 11:52 99.9 07/12/16 11:12 100 07/12/16 10:30 3.0 Intake and Output 07/11/16 07/11/16 07/12/16 15:00 23:00 07:00 Intake Total 1050 ml 1175 ml Output Total 10 ml 310 ml Balance -10 ml 740 ml 1175 ml Results Result Diagram: 07/12/16 0439 07/12/16 0431 Results 24 hrs Laboratory Tests Test 07/12/16 04:31 07/12/16 04:39 07/12/16 10:47 Sodium Level 134 L Potassium Level 3.4 L Chloride Level 103 Carbon Dioxide Level 23 Anion Gap 11 Blood Urea Nitrogen 9 Creatinine 0.44 L Glucose Level 89 Calcium Level 8.0 L Magnesium Level 1.6 L Total Bilirubin 1.9 H Direct Bilirubin 1.00 H Indirect Bilirubin 0.9 Aspartate Amino Transf (AST/SGOT) 55 H Alanine Aminotransferase (ALT/SGPT) 59 Alkaline Phosphatase 159 H Total Protein 5.4 L Albumin 2.5 L Globulin 2.90 Albumin/Globulin Ratio 0.86 White Blood Count 14.2 H Red Blood Count 3.43 L Hemoglobin 10.6 L Hematocrit 31.4 L Mean Corpuscular Volume 91.5 Mean Corpuscular Hemoglobin 30.9 Mean Corpuscular Hemoglobin Concent 33.8 Red Cell Distribution Width 18.1 H Platelet Count 372 Mean Platelet Volume 9.1 Neutrophils % 84.4 H Lymphocytes % 9.4 L Monocytes % 4.7 Eosinophils % 0.3 Basophils % 0.1 Nucleated Red Blood Cells % 0.0 Neutrophils # 12.0 H Lymphocytes # 1.3 Monocytes # 0.7 Eosinophils # 0.0 Basophils # 0.0 Nucleated Red Blood Cells # 0.0 Blood Gas Specimen Source Blood arterial Arterial Blood Date Drawn 07/12/2016 11:05:04 AM Arterial Blood pH (Temp corrected) 7.373 Arterial Blood pCO2 (Temp correct) 30.4 L Arterial Blood pO2 (Temp corrected) 40.3 *L Arterial Blood HCO3 17.3 L Arterial Blood Base Excess -6.7 L Arterial Blood Oxygen Saturation 74.8 L Og Test ACCEPTAB Arterial Blood Gas Puncture Site Right Radial Arterial Blood Carboxyhemoglobin 1.5 Arterial Blood Methemoglobin 0.1 Blood Gas A-a O2 Differential 303.6 H Oxyhemoglobin Percent 73.6 L Total Hemoglobin 13.7 Blood Gas Temperature 37.0 Blood Gas Modality MASK - SIMPLE FiO2 53.0 Blood Gas Critical Value Read Back Linda DYE RN Blood Gas Notified Whom JLD Blood Gas Notified Time 07/12/2016 11:17:40 AM Medications Medications Current Medications Potassium Chloride/Sodium Chloride (NS-KCl 20 Meq) 1,000 ml @ 70 mls/hr [id number] IV Last administered on 07/11/16 23:32; Admin Dose 70 MLS/HR; Start at 16:18 Ondansetron HCl (Zofran Inj) 4 mg Q6H PRN IV NAUSEA AND/OR VOMITING Last administered on 07/12/16 03:27; Admin Dose 4 MG; Start 06/30/16 at 16:30 Acetaminophen (Tylenol Tab) 650 mg Q6H PRN PO PAIN LEVEL 1-3 OR FEVER Last administered on 07/05/16 19:31; Admin Dose 650 MG; Start 06/30/16 at 16:30 Acetaminophen (Tylenol Supp) 650 mg Q6H PRN [place] PAIN LEVEL 1-3 OR FEVER; Start 06/30/16 at 16:30 Acetaminophen/ Hydrocodone Bitart ([place] (5/325)) 1 tab Q6H PRN PO MODERATE PAIN LEVEL 4-6 Last administered on 07/10/16 22:33; Admin Dose 1 TAB; Start at 16:30 Acetaminophen/ Hydrocodone Bitart ([place] (5/325)) 2 tab Q6H PRN PO SEVERE PAIN LEVEL 7-10 Last administered on 07/10/16 13:15; Admin Dose 2 TAB; Start at 16:30 Morphine Sulfate (morphine) 2 mg Q4H PRN IV SEVERE PAIN LEVEL 7-10 Last administered on 07/11/16 21:35; Admin Dose 2 MG; Start 06/30/16 at 16:30 Docusate Sodium (Colace) 100 mg Q12H PRN PO CONSTIPATION; Start 06/30/16 at 16: 30 Magnesium Hydroxide (Milk Of Mag) 30 ml DAILY PRN PO CONSTIPATION; Start at 16:30 Bisacodyl (Dulcolax Supp) 10 mg DAILY PRN [place] CONSTIPATION; Start 06/30/16 at 16 :30 Pantoprazole 40 mg 40 mg DAILY@06 IV Last administered on 07/12/16 06:28; Admin Dose 40 MG; Start 07/01/16 at 06:00 Piperacillin Sod/ Tazobactam Sod (Zosyn 3.375gm/ 100 ml (Pmx)) 100 ml @ 200 mls /hr Q8 IVPB Last administered on 07/12/16 05:20; Admin Dose 200 MLS/HR; Start 06/30/16 at 22:30 Metoclopramide HCl 10 mg 10 mg Q6 IV Last administered on 07/12/16 12:17; Admin Dose 10 MG; Start 07/03/16 at 18:00 Erythromycin Lactobionate 250 mg/Sodium Chloride 100 ml @ 100 mls/hr Q6 IVPB Last administered on 07/12/16 13:06; Admin Dose 100 MLS/HR; Start 07/09/16 at 00: 00 Fluconazole 100 mg/N/A 50 ml @ 50 mls/hr Q24H IVPB Last administered on 12:42; Admin Dose 50 MLS/HR; Start 07/11/16 at 11:00 Norepinephrine (Levophed) 250 ml @ 1.875 mls/ hr TITRATE PRN IV BLOOD PRESSURE SUPPORT Last administered on 07/12/16 11:13; Admin Dose 3.75 MLS/HR; Start 07/12/16 at 11:00 Methylprednisolone Sodium Succinate 40 mg 40 mg Q6 IV ; Start 07/12/16 at 13:30 Vancomycin HCl 1.75 gm/Sodium Chloride 500 ml @ 125 mls/hr ONCE IVPB ; Start at 14:30; Stop 07/12/16 at 18:29 Vancomycin HCl (Vancocin) 250 ml @ 125 mls/hr Q8H IVPB ; Start 07/12/16 at 23:00 MARIELA ROBIN NP July 12, 2016 14:16
[2016-07-12] MEDS: METHYLPREDNISOLONE 40 MG INJ IV SCH ×3 (14:29→23:37)
[2016-07-12] MEDS ORDERED: VANCOMYCIN 1.75 GM in NS 500 ML IVPB SCH (14:30)
--- NOTE | 2016-07-12 15:25 | CONS ---
Date/Time of Note Date/Time of Note DATE: 07/12/16 TIME: 15:22 Assessment/Plan Assessment/Plan Chief Complaint/Hosp Course 60 year old male with metastatic urothelial cancer who had presented during the last admission with gastric outlet obstruction status post duodenal stent . It was initially thought GI primary and FOLFOX given 06/04/16 based on prelim path and severe obstructive symptoms, however further path review showed primary. Patient now readmitted with sepsis with abdominal pain. # metastatic urothelial cancer - CT A/P demonstrates infiltrative neoplasm involving the cecum, ascending colon and hepatic flexure with extension of tumor to the serosa involving the lateral wall of the duodenum. This has advanced as compared to 05/27/2016. - I had planned to start gemcitabine 1000 mg/m2 D1, 8 and carboplatin AUC 4.5 D1 however will have to hold off for now until adequately treated with at least 14 days of antibiotics for bacteremia. If patient remained stable, I had planned to give chemo at the end of this week, however patient now with worsening of left lung pneumonia concerning for aspiration, tachycardic, hypotensive, on high flow nasal cannula. Patient to be transferred to ICU, add vanc, solumedrol. Now on vanc and meropenem. - discussed with Dr. De, duodenal stent obstructed by tumor, status post new internal biliary catheter 07/11/16 - Dr. Nolan to arrange for POLST form to be filled out # E. coli bacteremia - with sepsis secondary to biliary obstruction s/p attempted unsuccessful ERCP 07/03, s/p external percutaneous biliary drainage 07/05 - Patient now on vanc/zosyn with GNR bacteremia. Last blood cultures were clear from 07/05/16 - will hold on removing the port for now. If ID feels it is necessary to remove and if bacteremia does not clear, will remove at that time # Biliary obstruction - per GI, patient Bili is stable. - s/p percutaneous biliary drain given rise in bilirubin. T bili now down to 1.6 - status post new biliary catheter 07/11/16 - status post EGD that demonstrated gastric outlet obstruction with tumor growing over stent and almost complete obstructing lumen, may need gastrojejunostomy vs. another stent per GI # Diabetic Gastroparesis - cont reglan; erythromycin added as prokinetic agent per GI Problems: Consultation Date/Type/Reason Admit Date/Time Jun 30, 2016 at 15:42 Initial Consult Date 06/30/16 Type of Consultation: Oncology Referring Provider: GAMALIEL HAIR MD 24 HR Interval Summary Free Text/Dictation Patient underwent EGD this a.m. Per RN he became hypotensive during or shortly after the procedure, now in the ICU and hypoxemic on HFNC with CXR demonstrating worse left lung pneumonia concerning for aspiration. Vanc, solumedrol were added. Now on levophed. Exam/Review of Systems Vital Signs Vitals Vital Signs Date Time Temp Pulse Resp B/P Pulse Ox O2 Delivery O2 Flow Rate FiO2 07/12/16 15:13 93 100 07/12/16 15:07 122 31 95/61 High Flow 07/12/16 11:52 99.9 07/12/16 10:30 3.0 Intake and Output 07/11/16 07/11/16 07/12/16 14:59 22:59 06:59 Intake Total 1050 ml 1125 ml Output Total 10 ml 310 ml Balance -10 ml 740 ml 1125 ml Exam Constitutional: alert, frail, oriented Head: normocephalic, on high flow NC Eyes: icteric, nl conjunctiva ENMT: nl external ears & nose Neck: non-tender, supple Respiratory: clear to auscultation, normal air movement Cardiovascular: regular rate and rhythm Gastrointestinal: soft Musculoskeletal: nl extremities to inspection, nl gait and stance Results Result Diagram: 07/12/16 0439 07/12/16 0431 Results 24 hrs Laboratory Tests Test 07/12/16 04:31 07/12/16 04:39 07/12/16 10:47 Sodium Level 134 L Potassium Level 3.4 L Chloride Level 103 Carbon Dioxide Level 23 Anion Gap 11 Blood Urea Nitrogen 9 Creatinine 0.44 L Glucose Level 89 Calcium Level 8.0 L Magnesium Level 1.6 L Total Bilirubin 1.9 H Direct Bilirubin 1.00 H Indirect Bilirubin 0.9 Aspartate Amino Transf (AST/SGOT) 55 H Alanine Aminotransferase (ALT/SGPT) 59 Alkaline Phosphatase 159 H Total Protein 5.4 L Albumin 2.5 L Globulin 2.90 Albumin/Globulin Ratio 0.86 White Blood Count 14.2 H Red Blood Count 3.43 L Hemoglobin 10.6 L Hematocrit 31.4 L Mean Corpuscular Volume 91.5 Mean Corpuscular Hemoglobin 30.9 Mean Corpuscular Hemoglobin Concent 33.8 Red Cell Distribution Width 18.1 H Platelet Count 372 Mean Platelet Volume 9.1 Neutrophils % 84.4 H Lymphocytes % 9.4 L Monocytes % 4.7 Eosinophils % 0.3 Basophils % 0.1 Nucleated Red Blood Cells % 0.0 Neutrophils # 12.0 H Lymphocytes # 1.3 Monocytes # 0.7 Eosinophils # 0.0 Basophils # 0.0 Nucleated Red Blood Cells # 0.0 Blood Gas Specimen Source Blood arterial Arterial Blood Date Drawn 07/12/2016 11:05:04 AM Arterial Blood pH (Temp corrected) 7.373 Arterial Blood pCO2 (Temp correct) 30.4 L Arterial Blood pO2 (Temp corrected) 40.3 *L Arterial Blood HCO3 17.3 L Arterial Blood Base Excess -6.7 L Arterial Blood Oxygen Saturation 74.8 L Og Test ACCEPTAB Arterial Blood Gas Puncture Site Right Radial Arterial Blood Carboxyhemoglobin 1.5 Arterial Blood Methemoglobin 0.1 Blood Gas A-a O2 Differential 303.6 H Oxyhemoglobin Percent 73.6 L Total Hemoglobin 13.7 Blood Gas Temperature 37.0 Blood Gas Modality MASK - SIMPLE FiO2 53.0 Blood Gas Critical Value Read Back Linda DYE RN Blood Gas Notified Whom PRANAYD Blood Gas Notified Time 07/12/2016 11:17:40 AM Medications Medications Current Medications Potassium Chloride/Sodium Chloride (NS-KCl 20 Meq) 1,000 ml @ 70 mls/hr [id number] IV Last administered on 07/11/16 23:32; Admin Dose 70 MLS/HR; Start at 16:18 Ondansetron HCl (Zofran Inj) 4 mg Q6H PRN IV NAUSEA AND/OR VOMITING Last administered on 07/12/16 03:27; Admin Dose 4 MG; Start 06/30/16 at 16:30 Acetaminophen (Tylenol Tab) 650 mg Q6H PRN PO PAIN LEVEL 1-3 OR FEVER Last administered on 07/05/16 19:31; Admin Dose 650 MG; Start 06/30/16 at 16:30 Acetaminophen (Tylenol Supp) 650 mg Q6H PRN [place] PAIN LEVEL 1-3 OR FEVER; Start 06/30/16 at 16:30 Acetaminophen/ Hydrocodone Bitart ([place] (5/325)) 1 tab Q6H PRN PO MODERATE PAIN LEVEL 4-6 Last administered on 07/10/16 22:33; Admin Dose 1 TAB; Start at 16:30 Acetaminophen/ Hydrocodone Bitart ([place] (5/325)) 2 tab Q6H PRN PO SEVERE PAIN LEVEL 7-10 Last administered on 07/10/16 13:15; Admin Dose 2 TAB; Start at 16:30 Morphine Sulfate (morphine) 2 mg Q4H PRN IV SEVERE PAIN LEVEL 7-10 Last administered on 07/11/16 21:35; Admin Dose 2 MG; Start 06/30/16 at 16:30 Docusate Sodium (Colace) 100 mg Q12H PRN PO CONSTIPATION; Start 06/30/16 at 16: 30 Magnesium Hydroxide (Milk Of Mag) 30 ml DAILY PRN PO CONSTIPATION; Start at 16:30 Bisacodyl (Dulcolax Supp) 10 mg DAILY PRN [place] CONSTIPATION; Start 06/30/16 at 16 :30 Pantoprazole (Protonix Iv) 40 mg DAILY@06 IV Last administered on 07/12/16 06: 28; Admin Dose 40 MG; Start 07/01/16 at 06:00 Metoclopramide HCl 10 mg 10 mg Q6 IV Last administered on 07/12/16 12:17; Admin Dose 10 MG; Start 07/03/16 at 18:00 Erythromycin Lactobionate 250 mg/Sodium Chloride 100 ml @ 100 mls/hr Q6 IVPB Last administered on 07/12/16 13:06; Admin Dose 100 MLS/HR; Start 07/09/16 at 00: 00 Fluconazole 100 mg/N/A 50 ml @ 50 mls/hr Q24H IVPB Last administered on 12:42; Admin Dose 50 MLS/HR; Start 07/11/16 at 11:00 Norepinephrine (Levophed) 250 ml @ 1.875 mls/ hr TITRATE PRN IV BLOOD PRESSURE SUPPORT Last administered on 07/12/16 11:13; Admin Dose 3.75 MLS/HR; Start 07/12/16 at 11:00 Methylprednisolone Sodium Succinate 40 mg 40 mg Q6 IV Last administered on 14:29; Admin Dose 40 MG; Start 07/12/16 at 13:30 Vancomycin HCl 1.75 gm/Sodium Chloride 500 ml @ 125 mls/hr ONCE IVPB Last administered on 07/12/16t 14:46; Admin Dose 125 MLS/HR; Start 07/12/16 at 14:30; Stop 07/12/16 at 18:29 Vancomycin HCl 250 ml @ 125 mls/hr Q8H IVPB ; Start 07/12/16 at 23:00 Meropenem (Merrem 500 Mg/ 100 ml (Pmx)) 100 ml @ 200 mls/hr Q8 IVPB ; Start 07/12/16 at 22:00 DARBY KNOWLES MD July 12, 2016 15:25
[2016-07-12] MEDS ORDERED: POTASSIUM CHLORIDE 250 ML IVPB ONE (17:30)
[2016-07-12] MEDS ORDERED: MAGNESIUM SULFATE 2 GM/50 ML 50 ML IVPB ONE (17:30)
--- NOTE | 2016-07-12 19:03 | PN ---
Date/Time of Note Date/Time of Note DATE: 07/12/16 TIME: 18:57 Assessment/Plan Lines/Catheters IV Catheter Type (from [facility]): Peripheral IV [place] in Place (from [facility]): No Assessment/Plan Chief Complaint/Hosp Course 1. Sepsis 2nd biliary obstruction s/p attempted unsuccessful ERCP 07/03. s/p PTC 07/05. s/p EGD showing tumor growing over stent and causing obstruction 07/12 -abx -ivf -supportive care -Drain -Chemo [place] 2. Transaminitis with Hyperbilirubinemia ? 2nd biliary obstruction ? 2nd tumor s /p PTC 07/05 -as above 3. Metastatic Urothelial cancer with ? carcinomatosis -heme/onc for tx after sepsis resolution 4. Hx obstructed duodenum with gastric outlet obstruction s/p duodenal stent. Now with hiccups and difficulty eating. s/p EGD showing tumor growing over stent and causing obstruction 07/12 -Chemo [place] if possible 5. Steatosis -Eventual nutrition and lifestyle optimization 6. Weight loss probably secondary to above -As above Thank you, Problems: Subjective 24 Hr Interval Summary s/p EGD 07/12 > tumor growing over stent and causing obstruction. Now in icu with tachypnea and tachycardia. Anxious. s/p PTC 07/05. No f/c. No abdominal pain. No chest pain. No cough. No seizure. No headache, visual, or neurologic changes. No dysuria. Exam/Review of Systems Vital Signs Vitals Vital Signs Date Time Temp Pulse Resp B/P Pulse Ox O2 Delivery O2 Flow Rate FiO2 07/12/16 18:45 127 35 114/78 89 BIPAP 07/12/16 17:35 100 07/12/16 17:15 99.5 07/12/16 10:30 3.0 Intake and Output 07/11/16 07/11/16 07/12/16 14:59 22:59 06:59 Intake Total 1050 ml 1125 ml Output Total 10 ml 310 ml Balance -10 ml 740 ml 1125 ml Exam Free Text/Dictation Constitutional: alert, oriented, anxious on bipap Psych: Anxious but pleasant Head: atraumatic, normocephalic Eyes: EOMI, PERRL, nl conjunctiva, icterus ENMT: mucosa pink and moist, nl external ears & nose, nl lips & teeth Neck: non-tender, supple, No jvd, No masses Respiratory: normal air movement, No congested cough, No labored breathing Cardiovascular: regular rate and rhythm, No edema Gastrointestinal: NT, soft, No distended, No rebound or guarding Genitourinary - Male: nl scrotum Musculoskeletal: nl extremities to inspection, nl gait and stance, No joint tenderness Extremities: normal pulses, No calf tenderness, No cyanosis Neurological: nl mental status, nl speech, nl strength Skin: nl turgor, jaundice. No diaphoresis, No rash or lesions Lymph: No nl lymph nodes (Inguinal) Results Result Diagram: 07/12/16 0439 07/12/16 0431 DIAMOND FITZGERALD MD July 12, 2016 19:03
[2016-07-12 19:47] LABS: AADO2 Arterial 638.2 mmHg (7.0-24.0); Allen Test ACCEPTAB; Arterial Base Excess -4.7 mmol/L (-3.0-3); Arterial COHb 0.3 % (0.0-3.0); Arterial Fraction of Oxyhgb 81.4 % (93.0-99.0); Arterial HCO3 18.6 mmol/L (22.0-26.0); Arterial MetHb 0.3 % (0.0-1.5); Arterial Total Hemglobin 12.7 g/dl (12.0-18.0); Blood Gas IEPAP 20/8; Blood Gas PS 12; MODE MASK - BIPAP
[2016-07-12] MEDS ORDERED: PROPOFOL 100 ML ONE (20:13)
--- NOTE | 2016-07-12 20:22 | EN ---
Date/Time of Note Date/Time of Note DATE: 07/12/16 TIME: 20:20 ER Progress Note I was asked by her chrome polisher to intubate the patient because he is not able to tolerate BiPAP well and low O2 saturation Endotracheal Intubation by me: Pre assessment performed. See preceding note for details. Pre-oxygenation performed with 100% oxygen RSI: Performed w/o complication or hypoxic events. Medications as ordered. Blade: Ada Scope ET Tube: 7.5cm Depth: 23 cm at the lip Intubation confirmed by colorimetric CO2, equal breath sounds, quiet over the stomach. I have requested for portable chest x-ray, NG tube I would now transfer the care back to his chrome polisher who would follow-up the chest x-ray after intubation EDDIE DAVID MD July 12, 2016 20:21
[2016-07-12] MEDS: PROPOFOL 100 ML IV SCH ×2 (21:07→23:37)
[2016-07-12 22:06] LABS: Allen Test ACCEPTAB; Arterial Base Excess -6.7 mmol/L (-3.0-3); Arterial COHb 0.3 % (0.0-3.0); Arterial Fraction of Oxyhgb 93.9 % (93.0-99.0); Arterial HCO3 20.7 mmol/L (22.0-26.0); Arterial MetHb 0.5 % (0.0-1.5); Arterial Total Hemglobin 12.9 g/dl (12.0-18.0); MODE VENT - AC
[2016-07-12] MEDS: MEROPENEM 500 MG/100 ML (PMX) 100 ML IVPB SCH (22:15)
[2016-07-12] MEDS ORDERED: SOD CHLORIDE 0.9% 1,000 ML IV ONE (22:30)
--- NOTE | 2016-07-12 22:36 | RADRPT ---
PROCEDURE: XR Chest. CLINICAL INDICATION: Shortness of breath. TECHNIQUE: AP Portable chest. COMPARISON: 07/11/2016 FINDINGS: The cardiomediastinal silhouette is normal. Patchy perihilar airspace opacities are noted throughou t the left greater than right lung. There is opacity at the left lung base. The osseous structures are unremarkable. An endotracheal tube tip is in the mid trachea. A nasogastric tube tip is within the stomach. A ri ght chest medication port and catheter is noted. The tip of the catheter is within the right atrium . IMPRESSION: Bilateral airspace opacities likely due to pulmonary edema. Left base opacity likely due to pleural effusion and atelectasis. RPTAT: HIKT .Jamie Castellano MD, Date Time Electronically viewed and signed by .Jamie Castellano MD, on 07/12/2016 22:35 .T/
[2016-07-12] MEDS ORDERED: SOD CHLORIDE 0.9% 500 ML IV ONE (23:30)
[2016-07-12] MEDS: VANCOMYCIN 1 GM in NS 250 ML IVPB SCH (23:38)
[2016-07-12] MEDS: NS + KCL 20 MEQ 1,000 ML IV SCH (23:38)
[2016-07-13] VITALS (75 sets, daily range): BP systolic 82–123; BP diastolic 55–73; PULSE 86–108; RESP 17–27
[2016-07-13] MEDS: ERYTHROMYCIN LACTOBIONATE 250 MG in SOD CHLORIDE 0.9% 100 ML IVPB SCH ×5 (00:02→23:33)
[2016-07-13 00:21] LABS: AADO2 Arterial 602.6 mmHg (7.0-24.0); Allen Test ACCEPTAB; Arterial Base Excess -4.4 mmol/L (-3.0-3); Arterial COHb 0.3 % (0.0-3.0); Arterial Fraction of Oxyhgb 94.7 % (93.0-99.0); Arterial HCO3 19.7 mmol/L (22.0-26.0); Arterial MetHb 0.3 % (0.0-1.5); Arterial Total Hemglobin 10.8 g/dl (12.0-18.0); MODE VENT - AC
[2016-07-13] MEDS: METOCLOPRAMIDE 10 MG INJ IV SCH ×4 (05:12→23:35)
[2016-07-13] MEDS: METHYLPREDNISOLONE 40 MG INJ IV SCH ×4 (05:12→23:35)
[2016-07-13] MEDS: PANTOPRAZOLE 40 MG INJ IV SCH (05:12)
[2016-07-13] MEDS: ONDANSETRON 4 MG INJ IV PRN (05:12)
[2016-07-13] MEDS: MEROPENEM 500 MG/100 ML (PMX) 100 ML IVPB SCH ×3 (05:13→20:56)
[2016-07-13 05:57] LABS: ADD SCAN DIFF NO
[2016-07-13 06:00] LABS: ABNORMAL IP MESSAGE 1; HEMATOCRIT 30.5 % (42.0-52.0); MEAN CORPUSCULAR HEMOGLOBIN 30.3 pg (29.0-33.0); MEAN CORPUSCULAR HGB CONC 32.8 g/dl (32.0-37.0); MEAN CORPUSCULAR VOLUME 92.4 fl (82.0-101.0); MEAN PLATELET VOLUME 9.6 fl (7.4-10.4); PLATELET COUNT 243 10^3/UL (140-415); RED CELL DISTRIBUTION WIDTH 19.1 % (11.5-14.5); WHITE BLOOD COUNT 23.3 10^3/ul (4.8-10.8)
[2016-07-13 06:19] LABS: POTASSIUM 4.3 mmol/L (3.5-5.1)
[2016-07-13 06:22] LABS: CREATININE 1.53 mg/dl (0.61-1.24)
[2016-07-13 06:23] LABS: CALCIUM 7.3 mg/dl (8.4-10.2); MAGNESIUM 1.9 mg/dl (1.7-2.5)
[2016-07-13] MEDS: VANCOMYCIN 1 GM in NS 250 ML IVPB SCH ×2 (06:34→15:00)
[2016-07-13 08:15] LABS: AADO2 Arterial 516.7 mmHg (7.0-24.0); Allen Test ACCEPTAB; Arterial Base Excess -4.3 mmol/L (-3.0-3); Arterial COHb 0.3 % (0.0-3.0); Arterial Fraction of Oxyhgb 97.7 % (93.0-99.0); Arterial HCO3 18.7 mmol/L (22.0-26.0); Arterial MetHb 0.9 % (0.0-1.5); Arterial Total Hemglobin 10.5 g/dl (12.0-18.0); MODE VENT - AC
[2016-07-13] MEDS ORDERED: NORepinephrine 8MG/250 ML (PMX 250 ML IV ONE (08:30)
[2016-07-13] MEDS: PROPOFOL 100 ML IV SCH ×3 (08:40→20:56)
--- NOTE | 2016-07-13 08:42 | RADRPT ---
PROCEDURE: Chest Radiograph. CLINICAL INDICATION: Pneumonia TECHNIQUE: Single frontal chest radiograph. COMPARISON: Chest radiograph 07/12/2016 FINDINGS: An endotracheal tube and nasogastric tube remain in stable and radiographically appropriate position . There is a faint tubular opacity overlying the left upper extremity which may represent a PICC, h owever the central portions are not well visualized. A right chest wall port infusion catheter remai ns in place. Heart size is within normal limits. There is slightly improved aeration of the bilate ral lung thomas. Patchy bilateral infiltrates or edema persist though are improved. There is persis tent opacification of the left lung base which may represent pleural effusion IMPRESSION: 1. Slight improved aeration of the bilateral lung thomas. 2. Otherwise stable radiographic appearance of the chest compared to 07/12/2016. RPTAT: KK .Jason Boss MD, Date Time Electronically viewed and signed by .Jason Boss MD, on 07/13/2016 08:42 .B/
[2016-07-13] MEDS: NS + KCL 20 MEQ 1,000 ML IV SCH ×2 (09:15→23:47)
--- NOTE | 2016-07-13 09:49 | CONS ---
Date/Time of Note Date/Time of Note DATE: 07/13/16 TIME: 09:44 Consultation Date/Type/Reason Admit Date/Time Jun 30, 2016 at 15:42 Initial Consult Date 07/12/16 Type of Consultation: Anesthesiology Reason for Consultation Follow up Referring Provider: GAMALIEL HAIR MD 24 HR Interval Summary Free Text/Dictation Pt seen and examined at bedside in ICU. He is POD#1 for EGD. Pt admitted to ICU for SOB and hypoxia post EGD most likely due to aspiration superimposed on previous lung findings. Pt is currently intubated on mechanical ventilation for stabilization. He is also requiring low dose pressors for hemodynamic stability. New CXR shows slightly improved aeration of the bilateral lung thomas with patchy bilateral infiltrates or edema persist though are improved. Will continue to monitor. Exam/Review of Systems Vital Signs Vitals Vital Signs Date Time Temp Pulse Resp B/P Pulse Ox O2 Delivery O2 Flow Rate FiO2 07/13/16 08:30 106 22 90/56 98 Mechanical Ventilator 07/13/16 08:10 100 07/13/16 08:00 98.2 07/12/16 10:30 3.0 Intake and Output 07/12/16 07/12/16 07/13/16 14:59 22:59 06:59 Intake Total 50 ml 515 ml 900 ml Output Total 70 ml 40 ml 250 ml Balance -20 ml 475 ml 650 ml Results Result Diagram: 07/13/16 0540 07/13/16 0540 Results 24 hrs Laboratory Tests Test 07/12/16 10:47 07/12/16 18:55 07/12/16 21:30 07/13/16 00:00 Blood Gas Specimen Source Blood arterial Blood arterial Blood arterial Blood arterial Arterial Blood Date Drawn 07/12/2016 11:05:04 AM 07/12/2016 7:35:46 PM 07/12/2016 9:55:55 PM 07/13/2016 12:10:09 AM Arterial Blood pH (Temp corrected) 7.373 7.421 7.244 *L 7.397 Arterial Blood pCO2 (Temp correct) 30.4 L 29.2 L 49.0 H 32.7 L Arterial Blood pO2 (Temp corrected) 40.3 *L 45.6 *L 85.0 77.7 L Arterial Blood HCO3 17.3 L 18.6 L 20.7 L 19.7 L Arterial Blood Base Excess -6.7 L -4.7 L -6.7 L -4.4 L Arterial Blood Oxygen Saturation 74.8 L 81.9 L 94.7 L 95.3 Og Test ACCEPTAB ACCEPTAB ACCEPTAB ACCEPTAB Arterial Blood Gas Puncture Site Right Radial Left Radial Right Radial Right Radial Arterial Blood Carboxyhemoglobin 1.5 0.3 0.3 0.3 Arterial Blood Methemoglobin 0.1 0.3 0.5 0.3 Blood Gas A-a O2 Differential 303.6 H 638.2 H 579.0 H 602.6 H Oxyhemoglobin Percent 73.6 L 81.4 L 93.9 94.7 Total Hemoglobin 13.7 12.7 12.9 10.8 L Blood Gas Temperature 37.0 37.0 37.0 37.0 Blood Gas Modality MASK - SIMPLE MASK - BIPAP VENT - AC VENT - AC FiO2 53.0 100.0 100.0 100.0 Blood Gas Critical Value Read Back Linda SOLIS RN Blood Gas Notified Whom [facility] Blood Gas Notified Time 07/12/2016 11:17:40 AM 07/12/2016 7:47:04 PM 07/12/2016 10:05:43 PM 07/13/2016 12:20:57 AM Blood Gas Respiration Rate 16.0 16.0 16.0 Blood Gas Actual Respiration Rate 35 16 21 Blood Gas Pressure Support 12 Blood Gas IPAP/EPAP Ratio 20/8 Blood Gas Tidal Volume 550.0 600.0 Blood Gas Low PEEP Setting 8.0 8.0 Test 07/13/16 05:40 07/13/16 07:00 White Blood Count 23.3 #H Red Blood Count 3.30 L Hemoglobin 10.0 L Hematocrit 30.5 L Mean Corpuscular Volume 92.4 Mean Corpuscular Hemoglobin 30.3 Mean Corpuscular Hemoglobin Concent 32.8 Red Cell Distribution Width 19.1 H Platelet Count 243 # Mean Platelet Volume 9.6 Neutrophils % Eosinophils % Neutrophils # Eosinophils # Sodium Level 140 Potassium Level 4.3 Chloride Level 107 Carbon Dioxide Level 19 L Anion Gap 18 #H Blood Urea Nitrogen 20 # Creatinine 1.53 #H Glucose Level 127 Calcium Level 7.3 L Magnesium Level 1.9 Blood Gas Specimen Source Blood arterial Arterial Blood Date Drawn 07/13/2016 7:41:42 AM Arterial Blood pH (Temp corrected) 7.445 Arterial Blood pCO2 (Temp correct) 27.9 L Arterial Blood pO2 (Temp corrected) 168.4 H Arterial Blood HCO3 18.7 L Arterial Blood Base Excess -4.3 L Arterial Blood Oxygen Saturation 98.9 H Og Test ACCEPTAB Arterial Blood Gas Puncture Site Right Radial Arterial Blood Carboxyhemoglobin 0.3 Arterial Blood Methemoglobin 0.9 Blood Gas A-a O2 Differential 516.7 H Oxyhemoglobin Percent 97.7 Total Hemoglobin 10.5 L Blood Gas Temperature 37.0 Blood Gas Respiration Rate 16.0 Blood Gas Actual Respiration Rate 23 Blood Gas Modality VENT - AC FiO2 100.0 Blood Gas Tidal Volume 600.0 Blood Gas Low PEEP Setting 8.0 Blood Gas Notified Whom JLD Blood Gas Notified Time 07/13/2016 8:15:44 AM Medications Medications Current Medications Potassium Chloride/Sodium Chloride (NS-KCl 20 Meq) 1,000 ml @ 70 mls/hr [id number] IV Last administered on 07/12/16 23:38; Admin Dose 70 MLS/HR; Start at 16:18 Ondansetron HCl (Zofran Inj) 4 mg Q6H PRN IV NAUSEA AND/OR VOMITING Last administered on 07/12/16 03:27; Admin Dose 4 MG; Start 06/30/16 at 16:30 Acetaminophen (Tylenol Tab) 650 mg Q6H PRN PO PAIN LEVEL 1-3 OR FEVER Last administered on 07/05/16 19:31; Admin Dose 650 MG; Start 06/30/16 at 16:30 Acetaminophen (Tylenol Supp) 650 mg Q6H PRN [place] PAIN LEVEL 1-3 OR FEVER; Start 06/30/16 at 16:30 Acetaminophen/ Hydrocodone Bitart ([place] (5/325)) 1 tab Q6H PRN PO MODERATE PAIN LEVEL 4-6 Last administered on 07/10/16 22:33; Admin Dose 1 TAB; Start at 16:30 Acetaminophen/ Hydrocodone Bitart ([place] (5/325)) 2 tab Q6H PRN PO SEVERE PAIN LEVEL 7-10 Last administered on 07/10/16 13:15; Admin Dose 2 TAB; Start at 16:30 Morphine Sulfate (morphine) 2 mg Q4H PRN IV SEVERE PAIN LEVEL 7-10 Last administered on 07/11/16 21:35; Admin Dose 2 MG; Start 06/30/16 at 16:30 Docusate Sodium (Colace) 100 mg Q12H PRN PO CONSTIPATION; Start 06/30/16 at 16: 30 Magnesium Hydroxide (Milk Of Mag) 30 ml DAILY PRN PO CONSTIPATION; Start at 16:30 Bisacodyl (Dulcolax Supp) 10 mg DAILY PRN [place] CONSTIPATION; Start 06/30/16 at 16 :30 Pantoprazole (Protonix Iv) 40 mg DAILY@06 IV Last administered on 07/13/16 05: 12; Admin Dose 40 MG; Start 07/01/16 at 06:00 Metoclopramide HCl 10 mg 10 mg Q6 IV Last administered on 07/13/16 05:12; Admin Dose 10 MG; Start 07/03/16 at 18:00 Erythromycin Lactobionate 250 mg/Sodium Chloride 100 ml @ 100 mls/hr Q6 IVPB Last administered on 07/13/16 05:12; Admin Dose 100 MLS/HR; Start 07/09/16 at 00 :00 Fluconazole/N/A (Diflucan 200 Mg/ NS (Pmx)/Evac Container) 50 ml @ 50 mls/hr Q24H IVPB Last administered on 07/12/16 12:42; Admin Dose 50 MLS/HR; Start 07/11 at 11:00 Methylprednisolone Sodium Succinate 40 mg 40 mg Q6 IV Last administered on 07/13 05:12; Admin Dose 40 MG; Start 07/12/16 at 13:30 Vancomycin HCl 250 ml @ 125 mls/hr Q8H IVPB Last administered on 07/13/16 06: 34; Admin Dose 125 MLS/HR; Start 07/12/16 at 23:00 Meropenem (Merrem 500 Mg/ 100 ml (Pmx)) 100 ml @ 200 mls/hr Q8 IVPB Last administered on 07/13/16 05:13; Admin Dose 200 MLS/HR; Start 07/12/16 at 22:00 Miscellaneous Information 1 ONCE ONCE XX ; Start 07/13/16 at 14:00; Stop at 14:01 Propofol 100 ml @ 2.1 mls/hr Q12H IV Last administered on 07/13/16t 08:40; Admin Dose 16.8 MLS/HR; Start 07/12/16 at 21:00 Norepinephrine/ Dextrose (Levophed/D5W) 500 ml @ 1.87 mls/hr TITRATE IV ; Start 07/13/16 at 08:00 LASHAY HAMMER July 13, 2016 09:49
--- NOTE | 2016-07-13 11:15 | CONS ---
Date/Time of Note Date/Time of Note DATE: 07/13/16 TIME: 11:11 Consult Date/Type/Reason Admit Date/Time Jun 30, 2016 at 15:42 Initial Consult Date 07/12/16 Type of Consultation: pulmonary ICU Ordering Provider: GAMALIEL HAIR MD Subjective Patient examined is respiratory distress following endoscopy yesterday Likely aspirated during this procedure Required emergent intubation and mechanical ventilation Currently on vasopressor support Objective Vital Signs Date Time Temp Pulse Resp B/P Pulse Ox O2 Delivery O2 Flow Rate FiO2 07/13/16 10:01 95 25 100 70 07/13/16 08:30 90/56 Mechanical Ventilator 07/13/16 08:00 98.2 07/12/16 10:30 3.0 Intake and Output 07/12/16 07/12/16 07/13/16 15:00 23:00 07:00 Intake Total 515 ml 970 ml Output Total 70 ml 70 ml 240 ml Balance -70 ml 445 ml 730 ml Exam PHYSICAL EXAMINATION GENERAL: Elderly appearing gentleman intubated on mechanical ventilation VITAL SIGNS: see below. HEENT: Pupils equal, round, and reactive to light. CARDIAC: S1, S2, 1/6 systolic ejection murmur CHEST: Diminished air entry bilaterally. ABDOMEN: Mildly distended. Bowel sounds present no guarding or rebound EXTREMITIES: No cyanosis, clubbing edema +1 NEUROLOGIC: Generalized weakness Results/Medications Result Diagram: 07/13/16 0540 07/13/16 0540 Results 24 hrs Laboratory Tests Test 07/12/16 18:55 07/12/16 21:30 07/13/16 00:00 07/13/16 05:40 Blood Gas Specimen Source Blood arterial Blood arterial Blood arterial Arterial Blood Date Drawn 07/12/2016 7:35:46 PM 07/12/2016 9:55:55 PM 07/13/2016 12:10:09 AM Arterial Blood pH (Temp corrected) 7.421 7.244 *L 7.397 Arterial Blood pCO2 (Temp correct) 29.2 L 49.0 H 32.7 L Arterial Blood pO2 (Temp corrected) 45.6 *L 85.0 77.7 L Arterial Blood HCO3 18.6 L 20.7 L 19.7 L Arterial Blood Base Excess -4.7 L -6.7 L -4.4 L Arterial Blood Oxygen Saturation 81.9 L 94.7 L 95.3 Og Test ACCEPTAB ACCEPTAB ACCEPTAB Arterial Blood Gas Puncture Site Left Radial Right Radial Right Radial Arterial Blood Carboxyhemoglobin 0.3 0.3 0.3 Arterial Blood Methemoglobin 0.3 0.5 0.3 Blood Gas A-a O2 Differential 638.2 H 579.0 H 602.6 H Oxyhemoglobin Percent 81.4 L 93.9 94.7 Total Hemoglobin 12.7 12.9 10.8 L Blood Gas Temperature 37.0 37.0 37.0 Blood Gas Respiration Rate 16.0 16.0 16.0 Blood Gas Actual Respiration Rate 35 16 21 Blood Gas Modality MASK - BIPAP VENT - AC VENT - AC FiO2 100.0 100.0 100.0 Blood Gas Pressure Support 12 Blood Gas IPAP/EPAP Ratio 20/8 Blood Gas Critical Value Read Back Denice BRANNON RN S IRMA [facility] Blood Gas Notified Whom [facility] Blood Gas Notified Time 07/12/2016 7:47:04 PM 07/12/2016 10:05:43 PM 07/13/2016 12:20:57 AM Blood Gas Tidal Volume 550.0 600.0 Blood Gas Low PEEP Setting 8.0 8.0 White Blood Count 23.3 #H Red Blood Count 3.30 L Hemoglobin 10.0 L Hematocrit 30.5 L Mean Corpuscular Volume 92.4 Mean Corpuscular Hemoglobin 30.3 Mean Corpuscular Hemoglobin Concent 32.8 Red Cell Distribution Width 19.1 H Platelet Count 243 # Mean Platelet Volume 9.6 Neutrophils % Eosinophils % Neutrophils # Eosinophils # Sodium Level 140 Potassium Level 4.3 Chloride Level 107 Carbon Dioxide Level 19 L Anion Gap 18 #H Blood Urea Nitrogen 20 # Creatinine 1.53 #H Glucose Level 127 Calcium Level 7.3 L Magnesium Level 1.9 Test 07/13/16 07:00 Blood Gas Specimen Source Blood arterial Arterial Blood Date Drawn 07/13/2016 7:41:42 AM Arterial Blood pH (Temp corrected) 7.445 Arterial Blood pCO2 (Temp correct) 27.9 L Arterial Blood pO2 (Temp corrected) 168.4 H Arterial Blood HCO3 18.7 L Arterial Blood Base Excess -4.3 L Arterial Blood Oxygen Saturation 98.9 H Og Test ACCEPTAB Arterial Blood Gas Puncture Site Right Radial Arterial Blood Carboxyhemoglobin 0.3 Arterial Blood Methemoglobin 0.9 Blood Gas A-a O2 Differential 516.7 H Oxyhemoglobin Percent 97.7 Total Hemoglobin 10.5 L Blood Gas Temperature 37.0 Blood Gas Respiration Rate 16.0 Blood Gas Actual Respiration Rate 23 Blood Gas Modality VENT - AC FiO2 100.0 Blood Gas Tidal Volume 600.0 Blood Gas Low PEEP Setting 8.0 Blood Gas Notified Whom JLD Blood Gas Notified Time 07/13/2016 8:15:44 AM Medications Current Medications Potassium Chloride/Sodium Chloride (NS-KCl 20 Meq) 1,000 ml @ 70 mls/hr [id number] IV Last administered on 07/13/16 09:15; Admin Dose 70 MLS/HR; Start at 16:18 Ondansetron HCl (Zofran Inj) 4 mg Q6H PRN IV NAUSEA AND/OR VOMITING Last administered on 07/12/16 03:27; Admin Dose 4 MG; Start 06/30/16 at 16:30 Acetaminophen (Tylenol Tab) 650 mg Q6H PRN PO PAIN LEVEL 1-3 OR FEVER Last administered on 07/05/16 19:31; Admin Dose 650 MG; Start 06/30/16 at 16:30 Acetaminophen (Tylenol Supp) 650 mg Q6H PRN [place] PAIN LEVEL 1-3 OR FEVER; Start 06/30/16 at 16:30 Acetaminophen/ Hydrocodone Bitart ([place] (5/325)) 1 tab Q6H PRN PO MODERATE PAIN LEVEL 4-6 Last administered on 07/10/16 22:33; Admin Dose 1 TAB; Start at 16:30 Acetaminophen/ Hydrocodone Bitart ([place] (5/325)) 2 tab Q6H PRN PO SEVERE PAIN LEVEL 7-10 Last administered on 07/10/16 13:15; Admin Dose 2 TAB; Start at 16:30 Morphine Sulfate (morphine) 2 mg Q4H PRN IV SEVERE PAIN LEVEL 7-10 Last administered on 07/11/16 21:35; Admin Dose 2 MG; Start 06/30/16 at 16:30 Docusate Sodium (Colace) 100 mg Q12H PRN PO CONSTIPATION; Start 06/30/16 at 16: 30 Magnesium Hydroxide (Milk Of Mag) 30 ml DAILY PRN PO CONSTIPATION; Start at 16:30 Bisacodyl (Dulcolax Supp) 10 mg DAILY PRN [place] CONSTIPATION; Start 06/30/16 at 16 :30 Pantoprazole (Protonix Iv) 40 mg DAILY@06 IV Last administered on 07/13/16 05: 12; Admin Dose 40 MG; Start 07/01/16 at 06:00 Metoclopramide HCl 10 mg 10 mg Q6 IV Last administered on 07/13/16 05:12; Admin Dose 10 MG; Start 07/03/16 at 18:00 Erythromycin Lactobionate 250 mg/Sodium Chloride 100 ml @ 100 mls/hr Q6 IVPB Last administered on 07/13/16 05:12; Admin Dose 100 MLS/HR; Start 07/09/16 at 00 :00 Fluconazole/N/A (Diflucan 200 Mg/ NS (Pmx)/Evac Container) 50 ml @ 50 mls/hr Q24H IVPB Last administered on 07/12/16 12:42; Admin Dose 50 MLS/HR; Start 07/11 at 11:00 Methylprednisolone Sodium Succinate 40 mg 40 mg Q6 IV Last administered on 07/13 05:12; Admin Dose 40 MG; Start 07/12/16 at 13:30 Vancomycin HCl 250 ml @ 125 mls/hr Q8H IVPB Last administered on 07/13/16 06: 34; Admin Dose 125 MLS/HR; Start 07/12/16 at 23:00 Meropenem (Merrem 500 Mg/ 100 ml (Pmx)) 100 ml @ 200 mls/hr Q8 IVPB Last administered on 07/13/16 05:13; Admin Dose 200 MLS/HR; Start 07/12/16 at 22:00 Miscellaneous Information 1 ONCE ONCE XX ; Start 07/13/16 at 14:00; Stop at 14:01 Propofol 100 ml @ 2.1 mls/hr Q12H IV Last administered on 07/13/16 08:40; Admin Dose 16.8 MLS/HR; Start 07/12/16 at 21:00 Norepinephrine/ Dextrose (Levophed/D5W) 500 ml @ 1.87 mls/hr TITRATE IV ; Start 07/13/16 at 08:00 Assessment/Plan Chief Complaint/Hosp Course Assessment 1. Hypoxemic respiratory failure likely secondary to aspiration pneumonia 2. Septic shock secondary to above 3. Metastatic cancer 4. Renal insufficiency Plan 1. Continue mechanical ventilation 2. Continue broad-spectrum antibiotics 3. Continue GI recommendations 4. Vasopressors as needed 5. Aggressive fluid resuscitation Disposition Continue ICU care Case was discussed with hematology oncology Problems: BELLE CABAN MD, [facility] July 13, 2016 11:15
[2016-07-13] MEDS: EVAC CONTAINER IVPB SCH (11:21)
[2016-07-13] MEDS: NS 100 MG IVPB SCH (11:21)
[2016-07-13] MEDS: FLUCONAZOLE IVPB SCH (11:21)
[2016-07-13 11:23] LABS: LYMPHOCYTES # 0.7 10^3/ul (0.8-2.9); MONOCYTE # 1.6 10^3/ul (0.3-0.9); NEUTROPHIL # 17.2 10^3/ul (1.6-7.5)
--- NOTE | 2016-07-13 11:37 | CONS ---
Date/Time of Note Date/Time of Note DATE: 07/13/16 TIME: 11:30 Assessment/Plan Assessment/Plan Chief Complaint/Hosp Course 60 year old male with metastatic urothelial cancer who had presented during the last admission with gastric outlet obstruction status post duodenal stent . It was initially thought GI primary and FOLFOX given 06/04/16 based on prelim path and severe obstructive symptoms, however further path review showed primary. Patient now readmitted with sepsis with abdominal pain. # metastatic urothelial cancer - CT A/P demonstrates infiltrative neoplasm involving the cecum, ascending colon and hepatic flexure with extension of tumor to the serosa involving the lateral wall of the duodenum. This has advanced as compared to 05/27/2016. - I had planned to start gemcitabine 1000 mg/m2 D1, 8 and carboplatin AUC 4.5 D1 however wanted to hold off for now until adequately treated with at least 14 days of antibiotics for bacteremia. If patient remained stable, I had planned to give chemo at the end of this week, however patient now with worsening of left lung pneumonia concerning for aspiration during EGD, tachycardic, hypotensive, intubated, on sedation, one pressor, broad spectrum antibiotics. Given rapidly growing tumor, would want to start chemo ISSA when patient more stable. - discussed with Dr. De, duodenal stent obstructed by tumor, status post new internal biliary catheter 07/11/16 - Dr. Nolan to arrange for POLST form to be filled out # E. coli bacteremia - with sepsis secondary to biliary obstruction s/p attempted unsuccessful ERCP 07/03, s/p external percutaneous biliary drainage 07/05 - Last blood cultures were clear from 07/05/16 - will hold on removing the port for now. If ID feels it is necessary to remove and if bacteremia does not clear, will remove at that time # Biliary obstruction - per GI, patient Bili is stable. - s/p percutaneous biliary drain given rise in bilirubin. T bili now down to 1.6 - status post new biliary catheter 07/11/16 - status post EGD that demonstrated gastric outlet obstruction with tumor growing over stent and almost complete obstructing lumen, may need gastrojejunostomy vs. another stent per GI # Diabetic Gastroparesis - cont reglan; erythromycin added as prokinetic agent per GI Problems: Consultation Date/Type/Reason Admit Date/Time Jun 30, 2016 at 15:42 Initial Consult Date 06/30/16 Type of Consultation: Oncology Referring Provider: GAMALIEL HAIR MD 24 HR Interval Summary Free Text/Dictation Patient was intubated overnight as he could not tolerate CPAP or BiPAP, now sedated on propofol and on levophed. Exam/Review of Systems Vital Signs Vitals Vital Signs Date Time Temp Pulse Resp B/P Pulse Ox O2 Delivery O2 Flow Rate FiO2 07/13/16 10:01 95 25 100 70 07/13/16 08:30 90/56 Mechanical Ventilator 07/13/16 08:00 98.2 07/12/16 10:30 3.0 Intake and Output 07/12/16 07/12/16 07/13/16 15:00 23:00 07:00 Intake Total 515 ml 970 ml Output Total 70 ml 70 ml 240 ml Balance -70 ml 445 ml 730 ml Exam Constitutional: intubated, sedated Eyes: nl conjunctiva ENMT: nl external ears & nose Neck: non-tender, supple Respiratory: mechanical breath sounds Cardiovascular: regular rate and rhythm Gastrointestinal: soft Musculoskeletal: nl extremities to inspection, nl gait and stance Results Result Diagram: 07/13/16 0540 07/13/16 0540 Results 24 hrs Laboratory Tests Test 07/12/16 18:55 07/12/16 21:30 07/13/16 00:00 07/13/16 05:40 Blood Gas Specimen Source Blood arterial Blood arterial Blood arterial Arterial Blood Date Drawn 07/12/2016 7:35:46 PM 07/12/2016 9:55:55 PM 07/13/2016 12:10:09 AM Arterial Blood pH (Temp corrected) 7.421 7.244 *L 7.397 Arterial Blood pCO2 (Temp correct) 29.2 L 49.0 H 32.7 L Arterial Blood pO2 (Temp corrected) 45.6 *L 85.0 77.7 L Arterial Blood HCO3 18.6 L 20.7 L 19.7 L Arterial Blood Base Excess -4.7 L -6.7 L -4.4 L Arterial Blood Oxygen Saturation 81.9 L 94.7 L 95.3 Og Test ACCEPTAB ACCEPTAB ACCEPTAB Arterial Blood Gas Puncture Site Left Radial Right Radial Right Radial Arterial Blood Carboxyhemoglobin 0.3 0.3 0.3 Arterial Blood Methemoglobin 0.3 0.5 0.3 Blood Gas A-a O2 Differential 638.2 H 579.0 H 602.6 H Oxyhemoglobin Percent 81.4 L 93.9 94.7 Total Hemoglobin 12.7 12.9 10.8 L Blood Gas Temperature 37.0 37.0 37.0 Blood Gas Respiration Rate 16.0 16.0 16.0 Blood Gas Actual Respiration Rate 35 16 21 Blood Gas Modality MASK - BIPAP VENT - AC VENT - AC FiO2 100.0 100.0 100.0 Blood Gas Pressure Support 12 Blood Gas IPAP/EPAP Ratio 208 Blood Gas Critical Value Read Back Denice BRANNON RN S IRMA [facility] Blood Gas Notified Whom [facility] Blood Gas Notified Time 07/12/2016 7:47:04 PM 07/12/2016 10:05:43 PM 07/13/2016 12:20:57 AM Blood Gas Tidal Volume 550.0 600.0 Blood Gas Low PEEP Setting 8.0 8.0 White Blood Count 23.3 #H Red Blood Count 3.30 L Hemoglobin 10.0 L Hematocrit 30.5 L Mean Corpuscular Volume 92.4 Mean Corpuscular Hemoglobin 30.3 Mean Corpuscular Hemoglobin Concent 32.8 Red Cell Distribution Width 19.1 H Platelet Count 243 # Mean Platelet Volume 9.6 Neutrophils % 74.0 Band Neutrophils % 16.0 H Lymphocytes % 3.0 L Monocytes % 7.0 Eosinophils % Neutrophils # 17.2 H Lymphocytes # 0.7 L Monocytes # 1.6 H Eosinophils # Sodium Level 140 Potassium Level 4.3 Chloride Level 107 Carbon Dioxide Level 19 L Anion Gap 18 #H Blood Urea Nitrogen 20 # Creatinine 1.53 #H Glucose Level 127 Calcium Level 7.3 L Magnesium Level 1.9 Test 07/13/16 07:00 Blood Gas Specimen Source Blood arterial Arterial Blood Date Drawn 07/13/2016 7:41:42 AM Arterial Blood pH (Temp corrected) 7.445 Arterial Blood pCO2 (Temp correct) 27.9 L Arterial Blood pO2 (Temp corrected) 168.4 H Arterial Blood HCO3 18.7 L Arterial Blood Base Excess -4.3 L Arterial Blood Oxygen Saturation 98.9 H Og Test ACCEPTAB Arterial Blood Gas Puncture Site Right Radial Arterial Blood Carboxyhemoglobin 0.3 Arterial Blood Methemoglobin 0.9 Blood Gas A-a O2 Differential 516.7 H Oxyhemoglobin Percent 97.7 Total Hemoglobin 10.5 L Blood Gas Temperature 37.0 Blood Gas Respiration Rate 16.0 Blood Gas Actual Respiration Rate 23 Blood Gas Modality VENT - AC FiO2 100.0 Blood Gas Tidal Volume 600.0 Blood Gas Low PEEP Setting 8.0 Blood Gas Notified Whom JLD Blood Gas Notified Time 07/13/2016 8:15:44 AM Medications Medications Current Medications Potassium Chloride/Sodium Chloride (NS-KCl 20 Meq) 1,000 ml @ 70 mls/hr [id number] IV Last administered on 07/13/16 09:15; Admin Dose 70 MLS/HR; Start at 16:18 Ondansetron HCl (Zofran Inj) 4 mg Q6H PRN IV NAUSEA AND/OR VOMITING Last administered on 07/12/16 03:27; Admin Dose 4 MG; Start 06/30/16 at 16:30 Acetaminophen (Tylenol Tab) 650 mg Q6H PRN PO PAIN LEVEL 1-3 OR FEVER Last administered on 07/05/16 19:31; Admin Dose 650 MG; Start 06/30/16 at 16:30 Acetaminophen (Tylenol Supp) 650 mg Q6H PRN IN PAIN LEVEL 1-3 OR FEVER; Start 06/30/16 at 16:30 Acetaminophen/ Hydrocodone Bitart ([place] (5/325)) 1 tab Q6H PRN PO MODERATE PAIN LEVEL 4-6 Last administered on 07/10/16 22:33; Admin Dose 1 TAB; Start at 16:30 Acetaminophen/ Hydrocodone Bitart ([place] (5/325)) 2 tab Q6H PRN PO SEVERE PAIN LEVEL 7-10 Last administered on 07/10/16 13:15; Admin Dose 2 TAB; Start at 16:30 Morphine Sulfate (morphine) 2 mg Q4H PRN IV SEVERE PAIN LEVEL 7-10 Last administered on 07/11/16 21:35; Admin Dose 2 MG; Start 06/30/16 at 16:30 Docusate Sodium (Colace) 100 mg Q12H PRN PO CONSTIPATION; Start 06/30/16 at 16: 30 Magnesium Hydroxide (Milk Of Mag) 30 ml DAILY PRN PO CONSTIPATION; Start at 16:30 Bisacodyl (Dulcolax Supp) 10 mg DAILY PRN IN CONSTIPATION; Start 06/30/16 at 16 :30 Pantoprazole (Protonix Iv) 40 mg DAILY@06 IV Last administered on 07/13/16 05: 12; Admin Dose 40 MG; Start 07/01/16 at 06:00 Metoclopramide HCl 10 mg 10 mg Q6 IV Last administered on 07/13/16 05:12; Admin Dose 10 MG; Start 07/03/16 at 18:00 Erythromycin Lactobionate 250 mg/Sodium Chloride 100 ml @ 100 mls/hr Q6 IVPB Last administered on 07/13/16 05:12; Admin Dose 100 MLS/HR; Start 07/09/16 at 00 :00 Fluconazole/N/A (Diflucan 200 Mg/ NS (Pmx)/Evac Container) 50 ml @ 50 mls/hr Q24H IVPB Last administered on 07/12/16 12:42; Admin Dose 50 MLS/HR; Start 07/11 at 11:00 Methylprednisolone Sodium Succinate 40 mg 40 mg Q6 IV Last administered on 07/13 05:12; Admin Dose 40 MG; Start 07/12/16 at 13:30 Vancomycin HCl 250 ml @ 125 mls/hr Q8H IVPB Last administered on 07/13/16 06: 34; Admin Dose 125 MLS/HR; Start 07/12/16 at 23:00 Meropenem (Merrem 500 Mg/ 100 ml (Pmx)) 100 ml @ 200 mls/hr Q8 IVPB Last administered on 07/13/16 05:13; Admin Dose 200 MLS/HR; Start 07/12/16 at 22:00 Miscellaneous Information 1 ONCE ONCE XX ; Start 07/13/16 at 14:00; Stop at 14:01 Propofol 100 ml @ 2.1 mls/hr Q12H IV Last administered on 07/13/16 08:40; Admin Dose 16.8 MLS/HR; Start 07/12/16 at 21:00 Norepinephrine/ Dextrose (Levophed/D5W) 500 ml @ 1.87 mls/hr TITRATE IV ; Start 07/13/16 at 08:00 DARBY KNOWLES MD July 13, 2016 11:37
--- NOTE | 2016-07-13 13:22 | PN ---
DATE: 07/13/2016 SUBJECTIVE: The patient was transferred yesterday to ICU and currently intubated, started on Levoph ed drip, sedated, in no distress. VITAL SIGNS: Temperature max 99.8, temperature current 98.2, pulse 95, respirations 22, blood press ure 90/56, saturation 100% on 70% FIO2. LABORATORY DATA: WBC 23.3, H and H 10 and 30.5, platelets 243, bands 16. BUN 20, creatinine 1.53. ANTIMICROBIALS: 1. Vancomycin. 2. Merrem. 3. Fluconazole. 4. Erythromycin. 5. Status post Zosyn. INDWELLINGS: Endotracheal tube, NG tube, right chest Port-A-Cath, [place], right-sided intra-abdomina l drainage catheter. PHYSICAL EXAMINATION: GENERAL: Well-developed, elderly man who is intubated, sedated and in no distress. HEENT: Head atraumatic, normocephalic. Sclerae anicteric. Buccal mucosa dry. NECK: Supple, trachea midline. CHEST: Rise symmetrical. Breath sounds diminished to bases. HEART: S1, S2. ABDOMEN: Soft. Bowel sounds hypoactive. EXTREMITIES: Without cyanosis. ASSESSMENT: 1. Acute hypoxemic respiratory failure, status post aspiration event. 2. Septic shock. 3. Biliary obstruction, status post attempted unsuccessful ERCP on 07/03/2016, status post PTC on 0 07/05/2016, status post EGD yesterday showing tumor growing over stent and causing obstruction. 4. Status post Escherichia coli bacteremia with repeat blood cultures negative. 5. Urinary tract infection with urine culture on admission grew Pseudomonas, repeat culture grew Ca ndida albicans. 6. Diabetic gastroparesis. 7. Metastatic urothelial cancer. 8. Right chest Port-A-Cath. PLAN: The patient is doing poorly. He is on broad-spectrum antibiotics. He is being seen by multi ple consultants. He is FULL CODE. Prognosis guarded. Dictated By: MARIELA ROBIN [employer] TECH for PENNY BARRIGA/NTS Conf#: [id number] DID#: [id number]
--- NOTE | 2016-07-13 15:48 | CONS ---
Date/Time of Note Date/Time of Note DATE: 07/13/16 TIME: 15:44 Assessment/Plan Assessment/Plan Additional Assessment/Plan IMPRESSION: 1. Biliary obstruction. Status post biliary stent, bilirubin has come down. 2. Gram negative bacteremia, either from the urine or from the biliary system. 3. 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 4. 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 Gastric outlet obstruction secondary to tumor growing over the proximal part of the metallic stent in the duodenum. 6. Aspiration pneumonia Plan Continue NG tube to intermittent suction since the Patient has got gastric outlet obstruction. Biliary obstruction status post plastic biliary stent both external and internal Respiratory failure patient is on vent Continue antibiotic Within the patient off the vent since patient is alert awake and oriented and also his FiO2 has dropped down to almost 40% now When patient is more stable will place another duodenal stent. Patient is not a candidate for surgical bypass We should start chemo as soon as possible when the infection is under control Consultation Date/Type/Reason Admit Date/Time Jun 30, 2016 at 15:42 Initial Consult Date 06/30/16 Type of Consultation: Oncology Referring Provider: GAMALIEL HAIR MD 24 HR Interval Summary Subjective hx not possible: pt critical Exam/Review of Systems Vital Signs Vitals Vital Signs Date Time Temp Pulse Resp B/P Pulse Ox O2 Delivery O2 Flow Rate FiO2 07/13/16 14:30 102 26 108/65 93 Mechanical Ventilator 07/13/16 12:00 40 07/13/16 12:00 98.7 07/12/16 10:30 3.0 Intake and Output 07/12/16 07/12/16 07/13/16 15:00 23:00 07:00 Intake Total 515 ml 970 ml Output Total 70 ml 70 ml 240 ml Balance -70 ml 445 ml 730 ml Exam Constitutional: alert, oriented, well developed Psych: nl mood/affect, no complaints Head: atraumatic, normocephalic Eyes: EOMI, PERRL, nl conjunctiva, nl lids, nl sclera ENMT: nl external ears & nose, nl lips & teeth, nl nasal mucosa & septum Neck: non-tender, supple Respiratory: clear to auscultation, normal air movement Cardiovascular: nl pulses, regular rate and rhythm Gastrointestinal: nl liver, spleen, non-tender, soft Musculoskeletal: nl extremities to inspection, nl gait and stance Extremities: normal pulses Neurological: [employer] SUPER[employer]OR II-XII intact, nl mental status, nl speech, nl strength Skin: nl turgor, No rash or lesions Lymph: nl lymph nodes Results Result Diagram: 07/13/16 0540 07/13/16 0540 Results 24 hrs Laboratory Tests Test 07/12/16 18:55 07/12/16 21:30 07/13/16 00:00 07/13/16 05:40 Blood Gas Specimen Source Blood arterial Blood arterial Blood arterial Arterial Blood Date Drawn 07/12/2016 7:35:46 PM 07/12/2016 9:55:55 PM 07/13/2016 12:10:09 AM Arterial Blood pH (Temp corrected) 7.421 7.244 *L 7.397 Arterial Blood pCO2 (Temp correct) 29.2 L 49.0 H 32.7 L Arterial Blood pO2 (Temp corrected) 45.6 *L 85.0 77.7 L Arterial Blood HCO3 18.6 L 20.7 L 19.7 L Arterial Blood Base Excess -4.7 L -6.7 L -4.4 L Arterial Blood Oxygen Saturation 81.9 L 94.7 L 95.3 Og Test ACCEPTAB ACCEPTAB ACCEPTAB Arterial Blood Gas Puncture Site Left Radial Right Radial Right Radial Arterial Blood Carboxyhemoglobin 0.3 0.3 0.3 Arterial Blood Methemoglobin 0.3 0.5 0.3 Blood Gas A-a O2 Differential 638.2 H 579.0 H 602.6 H Oxyhemoglobin Percent 81.4 L 93.9 94.7 Total Hemoglobin 12.7 12.9 10.8 L Blood Gas Temperature 37.0 37.0 37.0 Blood Gas Respiration Rate 16.0 16.0 16.0 Blood Gas Actual Respiration Rate 35 16 21 Blood Gas Modality MASK - BIPAP VENT - AC VENT - AC FiO2 100.0 100.0 100.0 Blood Gas Pressure Support 12 Blood Gas IPAP/EPAP Ratio 20/8 Blood Gas Critical Value Read Back Denice BRANNON RN S IRMA RNM[facility] Blood Gas Notified Whom [facility] Blood Gas Notified Time 07/12/2016 7:47:04 PM 07/12/2016 10:05:43 PM 07/13/2016 12:20:57 AM Blood Gas Tidal Volume 550.0 600.0 Blood Gas Low PEEP Setting 8.0 8.0 White Blood Count 23.3 #H Red Blood Count 3.30 L Hemoglobin 10.0 L Hematocrit 30.5 L Mean Corpuscular Volume 92.4 Mean Corpuscular Hemoglobin 30.3 Mean Corpuscular Hemoglobin Concent 32.8 Red Cell Distribution Width 19.1 H Platelet Count 243 # Mean Platelet Volume 9.6 Neutrophils % 74.0 Band Neutrophils % 16.0 H Lymphocytes % 3.0 L Monocytes % 7.0 Eosinophils % Neutrophils # 17.2 H Lymphocytes # 0.7 L Monocytes # 1.6 H Eosinophils # Sodium Level 140 Potassium Level 4.3 Chloride Level 107 Carbon Dioxide Level 19 L Anion Gap 18 #H Blood Urea Nitrogen 20 # Creatinine 1.53 #H Glucose Level 127 Calcium Level 7.3 L Magnesium Level 1.9 Test 07/13/16 07:00 Blood Gas Specimen Source Blood arterial Arterial Blood Date Drawn 07/13/2016 7:41:42 AM Arterial Blood pH (Temp corrected) 7.445 Arterial Blood pCO2 (Temp correct) 27.9 L Arterial Blood pO2 (Temp corrected) 168.4 H Arterial Blood HCO3 18.7 L Arterial Blood Base Excess -4.3 L Arterial Blood Oxygen Saturation 98.9 H Og Test ACCEPTAB Arterial Blood Gas Puncture Site Right Radial Arterial Blood Carboxyhemoglobin 0.3 Arterial Blood Methemoglobin 0.9 Blood Gas A-a O2 Differential 516.7 H Oxyhemoglobin Percent 97.7 Total Hemoglobin 10.5 L Blood Gas Temperature 37.0 Blood Gas Respiration Rate 16.0 Blood Gas Actual Respiration Rate 23 Blood Gas Modality VENT - AC FiO2 100.0 Blood Gas Tidal Volume 600.0 Blood Gas Low PEEP Setting 8.0 Blood Gas Notified Whom JLD Blood Gas Notified Time 07/13/2016 8:15:44 AM Medications Medications Current Medications Potassium Chloride/Sodium Chloride (NS-KCl 20 Meq) 1,000 ml @ 70 mls/hr [id number] IV Last administered on 07/13/16 09:15; Admin Dose 70 MLS/HR; Start at 16:18 Ondansetron HCl (Zofran Inj) 4 mg Q6H PRN IV NAUSEA AND/OR VOMITING Last administered on 07/12/16 03:27; Admin Dose 4 MG; Start 06/30/16 at 16:30 Acetaminophen (Tylenol Tab) 650 mg Q6H PRN PO PAIN LEVEL 1-3 OR FEVER Last administered on 07/05/16 19:31; Admin Dose 650 MG; Start 06/30/16 at 16:30 Acetaminophen (Tylenol Supp) 650 mg Q6H PRN [place] PAIN LEVEL 1-3 OR FEVER; Start 06/30/16 at 16:30 Acetaminophen/ Hydrocodone Bitart ([place] (5/325)) 1 tab Q6H PRN PO MODERATE PAIN LEVEL 4-6 Last administered on 07/10/16 22:33; Admin Dose 1 TAB; Start at 16:30 Acetaminophen/ Hydrocodone Bitart ([place] (5/325)) 2 tab Q6H PRN PO SEVERE PAIN LEVEL 7-10 Last administered on 07/10/16 13:15; Admin Dose 2 TAB; Start at 16:30 Morphine Sulfate (morphine) 2 mg Q4H PRN IV SEVERE PAIN LEVEL 7-10 Last administered on 07/11/16 21:35; Admin Dose 2 MG; Start 06/30/16 at 16:30 Docusate Sodium (Colace) 100 mg Q12H PRN PO CONSTIPATION; Start 06/30/16 at 16: 30 Magnesium Hydroxide (Milk Of Mag) 30 ml DAILY PRN PO CONSTIPATION; Start at 16:30 Bisacodyl (Dulcolax Supp) 10 mg DAILY PRN [place] CONSTIPATION; Start 06/30/16 at 16 :30 Pantoprazole (Protonix Iv) 40 mg DAILY@06 IV Last administered on 07/13/16 05: 12; Admin Dose 40 MG; Start 07/01/16 at 06:00 Metoclopramide HCl 10 mg 10 mg Q6 IV Last administered on 07/13/16 11:21; Admin Dose 10 MG; Start 07/03/16 at 18:00 Erythromycin Lactobionate 250 mg/Sodium Chloride 100 ml @ 100 mls/hr Q6 IVPB Last administered on 07/13/16 13:04; Admin Dose 100 MLS/HR; Start 07/09/16 at 00 :00 Fluconazole/N/A (Diflucan 200 Mg/ NS (Pmx)/Evac Container) 50 ml @ 50 mls/hr Q24H IVPB Last administered on 07/13/16 11:21; Admin Dose 50 MLS/HR; Start 07/11/16 at 11:00 Methylprednisolone Sodium Succinate 40 mg 40 mg Q6 IV Last administered on 07/13 11:21; Admin Dose 40 MG; Start 07/12/16 at 13:30 Vancomycin HCl 250 ml @ 125 mls/hr Q8H IVPB Last administered on 07/13/16 06: 34; Admin Dose 125 MLS/HR; Start 07/12/16 at 23:00 Meropenem 100 ml @ 200 mls/hr Q8 IVPB Last administered on 07/13/16 14:26; Admin Dose 200 MLS/HR; Start 07/12/16 at 22:00 Propofol 100 ml @ 2.1 mls/hr Q12H IV Last administered on 07/13/16 14:40; Admin Dose 14.7 MLS/HR; Start 07/12/16 at 21:00 Norepinephrine/ Dextrose (Levophed/D5W) 500 ml @ 1.87 mls/hr TITRATE IV Last administered on 07/13/16 13:43; Admin Dose 18.75 MLS/HR; Start 07/13/16 at 08: 00 TIANNA SALINAS MD July 13, 2016 15:48
--- NOTE | 2016-07-13 15:53 | PN ---
Date/Time of Note Date/Time of Note DATE: 07/13/16 TIME: 15:38 Assessment/Plan VTE Prophylaxis VTE Prophylaxis Intervention: SCD's Lines/Catheters IV Catheter Type (from Nrs): PERMACATH Assessment/Plan Chief Complaint/Hosp Course 1. Septic Shock 2/2 Aspiration PNA -cont Vanco and Zosyn 2. Transaminitis with Hyperbilirubinemia 2nd biliary obstruction from metastatic cancer -as above 3. Metastatic Urothelial cancer with possible carcinomatosis -heme/onc to start chemotherapy 4. Hx obstructed duodenum with gastric outlet obstruction s/p duodenal stent Repeat duodenal stent placed today 5. Steatosis -Eventual nutrition and lifestyle optimization 6. Acute Respiratory Failure secondary to aspiration pneumonia cont vent management Continue Vanco and Zosyn Pulmonology consultation appreciated Prophylaxis: SCDs Problems: Subjective 24 Hr Interval Summary Subjective hx not possible: pt non-verbal Exam/Review of Systems Vital Signs Vitals Vital Signs Date Time Temp Pulse Resp B/P Pulse Ox O2 Delivery O2 Flow Rate FiO2 07/13/16 14:30 102 26 108/65 93 Mechanical Ventilator 07/13/16 12:00 40 07/13/16 12:00 98.7 07/12/16 10:30 3.0 Intake and Output 07/12/16 07/12/16 07/13/16 15:00 23:00 07:00 Intake Total 515 ml 970 ml Output Total 70 ml 70 ml 240 ml Balance -70 ml 445 ml 730 ml Exam Constitutional: non-verbal ENMT: intubated Respiratory: clear to auscultation Cardiovascular: regular rate and rhythm Gastrointestinal: soft, No distended Musculoskeletal: nl extremities to inspection Results Result Diagram: 07/13/16 0540 07/13/16 0540 Results 24 hrs Laboratory Tests Test 07/12/16 18:55 07/12/16 21:30 07/13/16 00:00 07/13/16 05:40 Blood Gas Specimen Source Blood arterial Blood arterial Blood arterial Arterial Blood Date Drawn 07/12/2016 7:35:46 PM 07/12/2016 9:55:55 PM 07/13/2016 12:10:09 AM Arterial Blood pH (Temp corrected) 7.421 7.244 *L 7.397 Arterial Blood pCO2 (Temp correct) 29.2 L 49.0 H 32.7 L Arterial Blood pO2 (Temp corrected) 45.6 *L 85.0 77.7 L Arterial Blood HCO3 18.6 L 20.7 L 19.7 L Arterial Blood Base Excess -4.7 L -6.7 L -4.4 L Arterial Blood Oxygen Saturation 81.9 L 94.7 L 95.3 Og Test ACCEPTAB ACCEPTAB ACCEPTAB Arterial Blood Gas Puncture Site Left Radial Right Radial Right Radial Arterial Blood Carboxyhemoglobin 0.3 0.3 0.3 Arterial Blood Methemoglobin 0.3 0.5 0.3 Blood Gas A-a O2 Differential 638.2 H 579.0 H 602.6 H Oxyhemoglobin Percent 81.4 L 93.9 94.7 Total Hemoglobin 12.7 12.9 10.8 L Blood Gas Temperature 37.0 37.0 37.0 Blood Gas Respiration Rate 16.0 16.0 16.0 Blood Gas Actual Respiration Rate 35 16 21 Blood Gas Modality MASK - BIPAP VENT - AC VENT - AC FiO2 100.0 100.0 100.0 Blood Gas Pressure Support 12 Blood Gas IPAP/EPAP Ratio 20/8 Blood Gas Critical Value Read Back Denice BRANNON RN S IRMA [facility]IE[facility] Blood Gas Notified Whom [facility] Blood Gas Notified Time 07/12/2016 7:47:04 PM 07/12/2016 10:05:43 PM 07/13/2016 12:20:57 AM Blood Gas Tidal Volume 550.0 600.0 Blood Gas Low PEEP Setting 8.0 8.0 White Blood Count 23.3 #H Red Blood Count 3.30 L Hemoglobin 10.0 L Hematocrit 30.5 L Mean Corpuscular Volume 92.4 Mean Corpuscular Hemoglobin 30.3 Mean Corpuscular Hemoglobin Concent 32.8 Red Cell Distribution Width 19.1 H Platelet Count 243 # Mean Platelet Volume 9.6 Neutrophils % 74.0 Band Neutrophils % 16.0 H Lymphocytes % 3.0 L Monocytes % 7.0 Eosinophils % Neutrophils # 17.2 H Lymphocytes # 0.7 L Monocytes # 1.6 H Eosinophils # Sodium Level 140 Potassium Level 4.3 Chloride Level 107 Carbon Dioxide Level 19 L Anion Gap 18 #H Blood Urea Nitrogen 20 # Creatinine 1.53 #H Glucose Level 127 Calcium Level 7.3 L Magnesium Level 1.9 Test 07/13/16 07:00 Blood Gas Specimen Source Blood arterial Arterial Blood Date Drawn 07/13/2016 7:41:42 AM Arterial Blood pH (Temp corrected) 7.445 Arterial Blood pCO2 (Temp correct) 27.9 L Arterial Blood pO2 (Temp corrected) 168.4 H Arterial Blood HCO3 18.7 L Arterial Blood Base Excess -4.3 L Arterial Blood Oxygen Saturation 98.9 H Og Test ACCEPTAB Arterial Blood Gas Puncture Site Right Radial Arterial Blood Carboxyhemoglobin 0.3 Arterial Blood Methemoglobin 0.9 Blood Gas A-a O2 Differential 516.7 H Oxyhemoglobin Percent 97.7 Total Hemoglobin 10.5 L Blood Gas Temperature 37.0 Blood Gas Respiration Rate 16.0 Blood Gas Actual Respiration Rate 23 Blood Gas Modality VENT - AC FiO2 100.0 Blood Gas Tidal Volume 600.0 Blood Gas Low PEEP Setting 8.0 Blood Gas Notified Whom JLD Blood Gas Notified Time 07/13/2016 8:15:44 AM Medications Medications Current Medications Potassium Chloride/Sodium Chloride (NS-KCl 20 Meq) 1,000 ml @ 70 mls/hr [id number] IV Last administered on 07/13/16 09:15; Admin Dose 70 MLS/HR; Start at 16:18 Ondansetron HCl (Zofran Inj) 4 mg Q6H PRN IV NAUSEA AND/OR VOMITING Last administered on 07/12/16 03:27; Admin Dose 4 MG; Start 06/30/16 at 16:30 Acetaminophen (Tylenol Tab) 650 mg Q6H PRN PO PAIN LEVEL 1-3 OR FEVER Last administered on 07/05/16 19:31; Admin Dose 650 MG; Start 06/30/16 at 16:30 Acetaminophen (Tylenol Supp) 650 mg Q6H PRN [place] PAIN LEVEL 1-3 OR FEVER; Start 06/30/16 at 16:30 Acetaminophen/ Hydrocodone Bitart ([place] (5/325)) 1 tab Q6H PRN PO MODERATE PAIN LEVEL 4-6 Last administered on 07/10/16 22:33; Admin Dose 1 TAB; Start at 16:30 Acetaminophen/ Hydrocodone Bitart ([place] (5/325)) 2 tab Q6H PRN PO SEVERE PAIN LEVEL 7-10 Last administered on 07/10/16 13:15; Admin Dose 2 TAB; Start at 16:30 Morphine Sulfate (morphine) 2 mg Q4H PRN IV SEVERE PAIN LEVEL 7-10 Last administered on 07/11/16 21:35; Admin Dose 2 MG; Start 06/30/16 at 16:30 Docusate Sodium (Colace) 100 mg Q12H PRN PO CONSTIPATION; Start 06/30/16 at 16: 30 Magnesium Hydroxide (Milk Of Mag) 30 ml DAILY PRN PO CONSTIPATION; Start at 16:30 Bisacodyl (Dulcolax Supp) 10 mg DAILY PRN [place] CONSTIPATION; Start 06/30/16 at 16 :30 Pantoprazole (Protonix Iv) 40 mg DAILY@06 IV Last administered on 07/13/16 05: 12; Admin Dose 40 MG; Start 07/01/16 at 06:00 Metoclopramide HCl 10 mg 10 mg Q6 IV Last administered on 07/13/16 11:21; Admin Dose 10 MG; Start 07/03/16 at 18:00 Erythromycin Lactobionate 250 mg/Sodium Chloride 100 ml @ 100 mls/hr Q6 IVPB Last administered on 07/13/16 13:04; Admin Dose 100 MLS/HR; Start 07/09/16 at 00 :00 Fluconazole/N/A (Diflucan 200 Mg/ NS (Pmx)/Evac Container) 50 ml @ 50 mls/hr Q24H IVPB Last administered on 07/13/16 11:21; Admin Dose 50 MLS/HR; Start 07/11/16 at 11:00 Methylprednisolone Sodium Succinate 40 mg 40 mg Q6 IV Last administered on 07/13 11:21; Admin Dose 40 MG; Start 07/12/16 at 13:30 Vancomycin HCl 250 ml @ 125 mls/hr Q8H IVPB Last administered on 07/13/16 06: 34; Admin Dose 125 MLS/HR; Start 07/12/16 at 23:00 Meropenem 100 ml @ 200 mls/hr Q8 IVPB Last administered on 07/13/16 14:26; Admin Dose 200 MLS/HR; Start 07/12/16 at 22:00 Propofol 100 ml @ 2.1 mls/hr Q12H IV Last administered on 07/13/16 14:40; Admin Dose 14.7 MLS/HR; Start 07/12/16 at 21:00 Norepinephrine/ Dextrose (Levophed/D5W) 500 ml @ 1.87 mls/hr TITRATE IV Last administered on 07/13/16t 13:43; Admin Dose 18.75 MLS/HR; Start 07/13/16 at 08: 00 ERNESTINA CANTU July 13, 2016 15:53
--- NOTE | 2016-07-13 18:06 | PN ---
Date/Time of Note Date/Time of Note DATE: 07/13/16 TIME: 18:02 Assessment/Plan Lines/Catheters IV [facility] ([facility] PERMACATH Assessment/Plan Chief Complaint/Hosp Course 1. Sepsis 2nd biliary obstruction s/p attempted unsuccessful ERCP 07/03. s/p PTC 07/05. s/p EGD showing tumor growing over stent and causing obstruction 07/12. Aspiration pneumonia s/p intubation 07/12. -abx -ivf -supportive care -Drain -Vent management and pulmonary toilette -Chemo [place] after infection controlled 2. Transaminitis with Hyperbilirubinemia ? 2nd biliary obstruction ? 2nd tumor s /p PTC 07/05 -as above 3. Metastatic Urothelial cancer with ? carcinomatosis -heme/onc for tx after sepsis resolution 4. Hx obstructed duodenum with gastric outlet obstruction s/p duodenal stent. Now with hiccups and difficulty eating. s/p EGD showing tumor growing over stent and causing obstruction 07/12 -Chemo [place] if possible 5. Steatosis -Eventual nutrition and lifestyle optimization 6. Weight loss probably secondary to above -As above Thank you, Problems: Subjective 24 Hr Interval Summary s/p Intubation 2nd respiratory compromise last night with aspiration pna 07/12. s /p EGD 07/12 > tumor growing over stent and causing obstruction. s/p PTC 07/05. No f/c. No abdominal pain. No chest pain. No cough. No seizure. No headache , visual, or neurologic changes. No dysuria. Exam/Review of Systems Vital Signs Vitals Vital Signs Date Time Temp Pulse Resp B/P Pulse Ox O2 Delivery O2 Flow Rate FiO2 07/13/16 17:07 102 25 95 40 07/13/16 16:30 106/62 Mechanical Ventilator 07/13/16 16:00 98.8 07/12/16 10:30 3.0 Intake and Output 07/12/16 07/12/16 07/13/16 15:00 23:00 07:00 Intake Total 515 ml 970 ml Output Total 70 ml 70 ml 240 ml Balance -70 ml 445 ml 730 ml Exam Free Text/Dictation Constitutional: Intubated Psych: Ventilated Head: atraumatic, normocephalic Eyes: EOMI, PERRL, nl conjunctiva, icterus ENMT: mucosa pink and moist, nl external ears & nose, nl lips & teeth Neck: non-tender, supple, No jvd, No masses Respiratory: normal air movement, No congested cough, No labored breathing Cardiovascular: regular rate and rhythm, No edema Gastrointestinal: NT, soft, No distended, No rebound or guarding Genitourinary - Male: nl scrotum Musculoskeletal: nl extremities to inspection, nl gait and stance, No joint tenderness Extremities: normal pulses, No calf tenderness, No cyanosis Neurological: nl mental status, nl speech, nl strength Skin: nl turgor, jaundice. No diaphoresis, No rash or lesions Lymph: No nl lymph nodes (Inguinal) Results Result Diagram: 07/13/16 0540 07/13/16 0540 DIAMOND FITZGERALD MD July 13, 2016 18:06
[2016-07-13] MEDS ORDERED: ALBUMIN HUMAN 25% 100 ML ONE (23:19)
[2016-07-13] MEDS ORDERED: SOD CHLORIDE 0.9% 500 ML IV ONE (23:30)
[2016-07-13] MEDS: ALBUMIN HUMAN 25% 100 ML IV SCH (23:35)
[2016-07-14] VITALS (78 sets, daily range): BP systolic 98–121; BP diastolic 57–84; PULSE 53–109; RESP 15–36
[2016-07-14] MEDS: PROPOFOL 100 ML IV SCH ×4 (01:42→20:50)
[2016-07-14] MEDS: NS + KCL 20 MEQ 1,000 ML IV SCH ×2 (04:17→16:29)
[2016-07-14 04:45] LABS: ADD SCAN DIFF NO
[2016-07-14 04:53] LABS: ABNORMAL IP MESSAGE 1; HEMATOCRIT 24.6 % (42.0-52.0); HEMOGLOBIN 7.9 g/dl (14.0-18.0); MEAN CORPUSCULAR HGB CONC 32.1 g/dl (32.0-37.0); MEAN CORPUSCULAR VOLUME 93.5 fl (82.0-101.0); MEAN PLATELET VOLUME 10.2 fl (7.4-10.4); PLATELET COUNT 195 10^3/UL (140-415); RED BLOOD COUNT 2.63 10^6/ul (4.70-6.10); RED CELL DISTRIBUTION WIDTH 19.7 % (11.5-14.5); WHITE BLOOD COUNT 19.7 10^3/ul (4.8-10.8)
[2016-07-14 05:24] LABS: POTASSIUM 4.2 mmol/L (3.5-5.1)
[2016-07-14] MEDS: PANTOPRAZOLE 40 MG INJ IV SCH (05:26)
[2016-07-14] MEDS: METOCLOPRAMIDE 10 MG INJ IV SCH ×4 (05:26→23:29)
[2016-07-14 05:28] LABS: CALCIUM 7.5 mg/dl (8.4-10.2)
[2016-07-14] MEDS: METHYLPREDNISOLONE 40 MG INJ IV SCH ×4 (05:30→23:30)
[2016-07-14] MEDS: ERYTHROMYCIN LACTOBIONATE 250 MG in SOD CHLORIDE 0.9% 100 ML IVPB SCH ×4 (05:30→23:30)
[2016-07-14 06:50] LABS: CREATININE 2.85 mg/dl (0.61-1.24)
[2016-07-14] MEDS: ALBUMIN HUMAN 25% 100 ML IV SCH (07:05)
[2016-07-14] MEDS: MEROPENEM 500 MG/100 ML (PMX) 100 ML IVPB SCH ×2 (08:20→20:50)
[2016-07-14] MEDS ORDERED: FUROSEMIDE 20 MG INJ IV ONE (08:30)
--- NOTE | 2016-07-14 08:31 | RADRPT ---
PROCEDURE: Chest Radiograph. CLINICAL INDICATION: Pneumonia. CHF. TECHNIQUE: Single frontal chest radiograph. COMPARISON: Chest radiograph 07/13/2016 FINDINGS: An endotracheal tube, nasogastric tube, and right chest wall port infusion catheter remain in place. There is likely a subdiaphragmatic drain on the right as well which is unchanged.. Heart size is within normal limits. Patchy bilateral infiltrates/edema are stable in distribution and extent. No new infiltrates are seen. The bones are intact. IMPRESSION: 1. Stable radiographic appearance of the chest compared to 07/13/2016. RPTAT: KK .Jason Boss MD, MD Date Time Electronically viewed and signed by .Jason Boss MD, on 07/14/2016 08:30 .B/
[2016-07-14 08:46] LABS: AADO2 Arterial 181.3 mmHg (7.0-24.0); Allen Test ACCEPTAB; Arterial Base Excess -7.9 mmol/L (-3.0-3); Arterial COHb 0.3 % (0.0-3.0); Arterial Fraction of Oxyhgb 93.3 % (93.0-99.0); Arterial HCO3 15.8 mmol/L (22.0-26.0); Arterial MetHb 0.6 % (0.0-1.5); Arterial Total Hemglobin 8.3 g/dl (12.0-18.0); MODE VENT - AC
[2016-07-14 09:50] LABS: HEMATOCRIT 23.9 % (42.0-52.0); HEMOGLOBIN 7.7 g/dl (14.0-18.0)
[2016-07-14] MEDS ORDERED: ALBUMIN HUMAN 25% 100 ML IV PRN (10:30)
[2016-07-14] MEDS ORDERED: SOD CHLORIDE 0.9% 100 ML ONE (10:38)
[2016-07-14] MEDS ORDERED: HEPARIN 1000 UNITS/ML 10 ML INJ ONE (10:38)
--- NOTE | 2016-07-14 10:41 | CONS ---
Date/Time of Note Date/Time of Note DATE: 07/14/16 TIME: 10:38 Assessment/Plan Assessment/Plan Additional Assessment/Plan IMPRESSION: 1. Biliary obstruction. Status post biliary stent, bilirubin has come down. 2. Gram negative bacteremia, either from the urine or from the biliary system. 3. 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 4. 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 Gastric outlet obstruction secondary to tumor growing over the proximal part of the metallic stent in the duodenum. 6. Aspiration pneumonia 7. Renal failure, it is multifactorial 8. UTI with Pseudomonas and Chelsy in the urine, E. coli in the blood Plan Continue NG tube to intermittent suction since the Patient has got gastric outlet obstruction. Biliary obstruction status post plastic biliary stent both external and internal Respiratory failure patient is on vent Continue antibiotic Within the patient off the vent since patient is alert awake and oriented and also his FiO2 has dropped down to almost 40% now When patient is more stable will place another duodenal stent. Patient is not a candidate for surgical bypass We should start chemo as soon as possible when the infection is under control ID consult Nephrology consult for possible dialysis Consultation Date/Type/Reason Admit Date/Time Jun 30, 2016 at 15:42 Initial Consult Date 06/30/16 Type of Consultation: Oncology Referring Provider: GAMALIEL HAIR MD 24 HR Interval Summary Subjective hx not possible: pt critical Exam/Review of Systems Vital Signs Vitals Vital Signs Date Time Temp Pulse Resp B/P Pulse Ox O2 Delivery O2 Flow Rate FiO2 07/14/16 09:28 93 25 95 40 07/14/16 07:30 107/69 Mechanical Ventilator 07/14/16 04:00 99.6 07/12/16 10:30 3.0 Intake and Output 07/13/16 07/13/16 07/14/16 15:00 23:00 07:00 Intake Total 1129.725 ml 919.50 ml 1162.6 ml Output Total 170 ml 470 ml 452 ml Balance 959.725 ml 449.50 ml 710.6 ml Exam Constitutional: alert, oriented, well developed ENMT: nl external ears & nose, nl lips & teeth, nl nasal mucosa & septum Respiratory: other (Patient is on the vent) Gastrointestinal: nl liver, spleen, non-tender, soft Extremities: normal pulses Neurological: VESSEL WELDER II-XII intact, nl mental status, nl speech, nl strength Results Result Diagram: 07/14/16 0925 07/14/16 0400 Results 24 hrs Laboratory Tests Test 07/13/16 15:05 07/14/16 04:00 07/14/16 07:00 07/14/16 09:25 Vancomycin Level Trough 29.7 *H White Blood Count 19.7 H Red Blood Count 2.63 #L Hemoglobin 7.9 #L 7.7 L Hematocrit 24.6 L 23.9 L Mean Corpuscular Volume 93.5 Mean Corpuscular Hemoglobin 30.0 Mean Corpuscular Hemoglobin Concent 32.1 Red Cell Distribution Width 19.7 H Platelet Count 195 Mean Platelet Volume 10.2 Neutrophils % Eosinophils % Neutrophils # Eosinophils # Sodium Level 141 Potassium Level 4.2 Chloride Level 108 Carbon Dioxide Level 17 L Anion Gap 20 H Blood Urea Nitrogen 38 #H Creatinine 2.85 #H Glucose Level 129 Calcium Level 7.5 L Blood Gas Specimen Source Blood arterial Arterial Blood Date Drawn 07/14/2016 8:11:21 AM Arterial Blood pH (Temp corrected) 7.406 Arterial Blood pCO2 (Temp correct) 25.7 L Arterial Blood pO2 (Temp corrected) 74.3 L Arterial Blood HCO3 15.8 L Arterial Blood Base Excess -7.9 L Arterial Blood Oxygen Saturation 94.1 L Og Test ACCEPTAB Arterial Blood Gas Puncture Site Right Radial Arterial Blood Carboxyhemoglobin 0.3 Arterial Blood Methemoglobin 0.6 Blood Gas A-a O2 Differential 181.3 H Oxyhemoglobin Percent 93.3 Total Hemoglobin 8.3 L Blood Gas Temperature 37.0 Blood Gas Respiration Rate 16.0 Blood Gas Actual Respiration Rate 25 Blood Gas Modality VENT - AC FiO2 40.0 Blood Gas Tidal Volume 600.0 Blood Gas Low PEEP Setting 5.0 Blood Gas Notified Whom JLD Blood Gas Notified Time 07/14/2016 8:46:01 AM Medications Medications Current Medications Potassium Chloride/Sodium Chloride (NS-KCl 20 Meq) 1,000 ml @ 100 mls/hr Q10H IV Last administered on 07/14/16t 04:17; Admin Dose 100 MLS/HR; Start 06/30/16 at 16:18 Ondansetron HCl (Zofran Inj) 4 mg Q6H PRN IV NAUSEA AND/OR VOMITING Last administered on 07/12/16 03:27; Admin Dose 4 MG; Start 06/30/16 at 16:30 Acetaminophen (Tylenol Tab) 650 mg Q6H PRN PO PAIN LEVEL 1-3 OR FEVER Last administered on 07/05/16 19:31; Admin Dose 650 MG; Start 06/30/16 at 16:30 Acetaminophen (Tylenol Supp) 650 mg Q6H PRN IN PAIN LEVEL 1-3 OR FEVER; Start 06/30/16 at 16:30 Acetaminophen/ Hydrocodone Bitart ([place] (5/325)) 1 tab Q6H PRN PO MODERATE PAIN LEVEL 4-6 Last administered on 07/10/16 22:33; Admin Dose 1 TAB; Start at 16:30 Acetaminophen/ Hydrocodone Bitart ([place] (5/325)) 2 tab Q6H PRN PO SEVERE PAIN LEVEL 7-10 Last administered on 07/10/16 13:15; Admin Dose 2 TAB; Start at 16:30 Morphine Sulfate (morphine) 2 mg Q4H PRN IV SEVERE PAIN LEVEL 7-10 Last administered on 07/11/16 21:35; Admin Dose 2 MG; Start 06/30/16 at 16:30 Docusate Sodium (Colace) 100 mg Q12H PRN PO CONSTIPATION; Start 06/30/16 at 16: 30 Magnesium Hydroxide (Milk Of Mag) 30 ml DAILY PRN PO CONSTIPATION; Start at 16:30 Bisacodyl (Dulcolax Supp) 10 mg DAILY PRN IN CONSTIPATION; Start 06/30/16 at 16 :30 Pantoprazole (Protonix Iv) 40 mg DAILY@06 IV Last administered on 07/14/16 05: 26; Admin Dose 40 MG; Start 07/01/16 at 06:00 Metoclopramide HCl 10 mg 10 mg Q6 IV Last administered on 07/14/16 05:26; Admin Dose 10 MG; Start 07/03/16 at 18:00 Erythromycin Lactobionate/ Sodium Chloride (Erythromycin Lactobionate/NS) 100 ml @ 100 mls/hr Q6 IVPB Last administered on 07/14/16 05:30; Admin Dose 100 MLS/HR; Start 07/09/16 at 00:00 Methylprednisolone Sodium Succinate 40 mg 40 mg Q6 IV Last administered on 07/14 05:30; Admin Dose 40 MG; Start 07/12/16 at 13:30 Propofol 100 ml @ 2.1 mls/hr Q12H IV Last administered on 07/14/16 08:20; Admin Dose 14.7 MLS/HR; Start 07/12/16 at 21:00 Norepinephrine 16 mg/Dextrose 500 ml @ 1.87 mls/hr TITRATE IV Last administered on 07/13/16 13:43; Admin Dose 18.75 MLS/HR; Start 07/13/16 at 08: 00 Meropenem 100 ml @ 200 mls/hr Q12 IVPB Last administered on 07/14/16 08:20; Admin Dose 200 MLS/HR; Start 07/13/16 at 21:00 Fluconazole/ Sodium Chloride 50 ml @ 50 mls/hr Q24H IVPB ; Start 07/14/16 at 11: 00 Vancomycin HCl (Vancocin) 250 ml @ 125 mls/hr Q48H IVPB ; Start 07/15/16 at 12: 00 TIANNA SALINAS MD July 14, 2016 10:41
--- NOTE | 2016-07-14 11:15 | CONS ---
Date/Time of Note Date/Time of Note DATE: 07/14/16 TIME: 11:14 Consult Date/Type/Reason Admit Date/Time Jun 30, 2016 at 15:42 Initial Consult Date 07/12/16 Type of Consultation: Pulmonary ICU Ordering Provider: GAMALIEL HAIR MD Subjective Patient continues mechanical ventilation awake alert comfortable No urine output Significant anasarca Drop in hemoglobin noted Objective Vital Signs Date Time Temp Pulse Resp B/P Pulse Ox O2 Delivery O2 Flow Rate FiO2 07/14/16 09:28 93 25 95 40 07/14/16 07:30 107/69 Mechanical Ventilator 07/14/16 04:00 99.6 07/12/16 10:30 3.0 Intake and Output 07/13/16 07/13/16 07/14/16 15:00 23:00 07:00 Intake Total 1129.725 ml 919.50 ml 1162.6 ml Output Total 170 ml 470 ml 452 ml Balance 959.725 ml 449.50 ml 710.6 ml Exam PHYSICAL EXAMINATION GENERAL: Elderly appearing gentleman intubated on mechanical ventilation VITAL SIGNS: see below. HEENT: Pupils equal, round, and reactive to light. CARDIAC: S1, S2, 1/6 systolic ejection murmur CHEST: Diminished air entry bilaterally. ABDOMEN: Mildly distended. Bowel sounds present no guarding or rebound EXTREMITIES: No cyanosis, clubbing edema +1 NEUROLOGIC: Generalized weakness Results/Medications Result Diagram: 07/14/16 0925 07/14/16 0400 Results 24 hrs Laboratory Tests Test 07/13/16 15:05 07/14/16 04:00 07/14/16 07:00 07/14/16 09:25 Vancomycin Level Trough 29.7 *H White Blood Count 19.7 H Red Blood Count 2.63 #L Hemoglobin 7.9 #L 7.7 L Hematocrit 24.6 L 23.9 L Mean Corpuscular Volume 93.5 Mean Corpuscular Hemoglobin 30.0 Mean Corpuscular Hemoglobin Concent 32.1 Red Cell Distribution Width 19.7 H Platelet Count 195 Mean Platelet Volume 10.2 Neutrophils % Eosinophils % Neutrophils # Eosinophils # Sodium Level 141 Potassium Level 4.2 Chloride Level 108 Carbon Dioxide Level 17 L Anion Gap 20 H Blood Urea Nitrogen 38 #H Creatinine 2.85 #H Glucose Level 129 Calcium Level 7.5 L Blood Gas Specimen Source Blood arterial Arterial Blood Date Drawn 07/14/2016 8:11:21 AM Arterial Blood pH (Temp corrected) 7.406 Arterial Blood pCO2 (Temp correct) 25.7 L Arterial Blood pO2 (Temp corrected) 74.3 L Arterial Blood HCO3 15.8 L Arterial Blood Base Excess -7.9 L Arterial Blood Oxygen Saturation 94.1 L Og Test ACCEPTAB Arterial Blood Gas Puncture Site Right Radial Arterial Blood Carboxyhemoglobin 0.3 Arterial Blood Methemoglobin 0.6 Blood Gas A-a O2 Differential 181.3 H Oxyhemoglobin Percent 93.3 Total Hemoglobin 8.3 L Blood Gas Temperature 37.0 Blood Gas Respiration Rate 16.0 Blood Gas Actual Respiration Rate 25 Blood Gas Modality VENT - AC FiO2 40.0 Blood Gas Tidal Volume 600.0 Blood Gas Low PEEP Setting 5.0 Blood Gas Notified Whom JLD Blood Gas Notified Time 07/14/2016 8:46:01 AM Medications Current Medications Potassium Chloride/Sodium Chloride (NS-KCl 20 Meq) 1,000 ml @ 100 mls/hr Q10H IV Last administered on 07/14/16 04:17; Admin Dose 100 MLS/HR; Start 06/30/16 at 16:18 Ondansetron HCl (Zofran Inj) 4 mg Q6H PRN IV NAUSEA AND/OR VOMITING Last administered on 07/12/16 03:27; Admin Dose 4 MG; Start 06/30/16 at 16:30 Acetaminophen (Tylenol Tab) 650 mg Q6H PRN PO PAIN LEVEL 1-3 OR FEVER Last administered on 07/05/16 19:31; Admin Dose 650 MG; Start 06/30/16 at 16:30 Acetaminophen (Tylenol Supp) 650 mg Q6H PRN [place] PAIN LEVEL 1-3 OR FEVER; Start 06/30/16 at 16:30 Acetaminophen/ Hydrocodone Bitart ([place] (5/325)) 1 tab Q6H PRN PO MODERATE PAIN LEVEL 4-6 Last administered on 07/10/16 22:33; Admin Dose 1 TAB; Start at 16:30 Acetaminophen/ Hydrocodone Bitart ([place] (5/325)) 2 tab Q6H PRN PO SEVERE PAIN LEVEL 7-10 Last administered on 07/10/16 13:15; Admin Dose 2 TAB; Start at 16:30 Morphine Sulfate (morphine) 2 mg Q4H PRN IV SEVERE PAIN LEVEL 7-10 Last administered on 07/11/16 21:35; Admin Dose 2 MG; Start 06/30/16 at 16:30 Docusate Sodium (Colace) 100 mg Q12H PRN PO CONSTIPATION; Start 06/30/16 at 16: 30 Magnesium Hydroxide (Milk Of Mag) 30 ml DAILY PRN PO CONSTIPATION; Start at 16:30 Bisacodyl (Dulcolax Supp) 10 mg DAILY PRN [place] CONSTIPATION; Start 06/30/16 at 16 :30 Pantoprazole (Protonix Iv) 40 mg DAILY@06 IV Last administered on 07/14/16 05: 26; Admin Dose 40 MG; Start 07/01/16 at 06:00 Metoclopramide HCl 10 mg 10 mg Q6 IV Last administered on 07/14/16 05:26; Admin Dose 10 MG; Start 07/03/16 at 18:00 Erythromycin Lactobionate/ Sodium Chloride (Erythromycin Lactobionate/NS) 100 ml @ 100 mls/hr Q6 IVPB Last administered on 07/14/16 05:30; Admin Dose 100 MLS/HR; Start 07/09/16 at 00:00 Methylprednisolone Sodium Succinate 40 mg 40 mg Q6 IV Last administered on 07/14 05:30; Admin Dose 40 MG; Start 07/12/16 at 13:30 Propofol 100 ml @ 2.1 mls/hr Q12H IV Last administered on 07/14/16 08:20; Admin Dose 14.7 MLS/HR; Start 07/12/16 at 21:00 Norepinephrine 16 mg/Dextrose 500 ml @ 1.87 mls/hr TITRATE IV Last administered on 07/13/16 13:43; Admin Dose 18.75 MLS/HR; Start 07/13/16 at 08: 00 Meropenem 100 ml @ 200 mls/hr Q12 IVPB Last administered on 07/14/16 08:20; Admin Dose 200 MLS/HR; Start 07/13/16 at 21:00 Fluconazole/ Sodium Chloride 50 ml @ 50 mls/hr Q24H IVPB ; Start 07/14/16 at 11: 00 Vancomycin HCl (Vancocin) 250 ml @ 125 mls/hr Q48H IVPB ; Start 07/15/16 at 12: 00 Assessment/Plan Chief Complaint/Hosp Course Assessment 1. Hypoxemic respiratory failure likely secondary to aspiration pneumonia 2. Septic shock secondary to above 3. Metastatic bladder cancer 4. Renal failure Plan 1. Continue mechanical ventilation 2. Continue broad-spectrum antibiotics 3. Continue GI recommendations 4. Vasopressors as needed 5. Renal recommendations may require hemodialysis for volume removal and metabolic acidosis Disposition Continue ICU care Case was discussed with nephrology. Problems: BELLE CABAN MD, [facility] July 14, 2016 11:15
--- NOTE | 2016-07-14 11:31 | CONS ---
DATE OF ADMISSION: 06/30/2016 DATE OF CONSULTATION: 07/14/2016 TYPE OF CONSULTATION: Nephrology. REASON FOR CONSULTATION: Acute renal failure, severe metabolic acidosis, fluid overload, with anasa rca. REFERRING PHYSICIAN: Dr. Falcon HISTORY OF PRESENT ILLNESS: This is a 60-year-old male who has a past medical history of metastatic urothelial cancer with a possible ____ . He was admitted this time with obstructed urine with a g astric outlet obstruction and had a duodenal stent placement by GI, Dr. De. The patient had a m etastatic cancer. He was admitted this time for septic shock secondary to aspiration pneumonia and acute respiratory failure secondary to aspiration pneumonia. He was started on IV antibiotics, Zosy n and vancomycin. The patient has been followed up by infectious disease service, pulmonary service and hematology/oncology service. The patient had a normal creatinine up to 0.44 on 07/12/2016. Hi s creatinine bumped up to 1.5. Today his creatinine bumped up to 2.85 and his urine output dropped t o 0 mL hour. Overnight, he was given IV fluid NS bolus followed by albumin and also had a Lasix IV x 1 dose, but it did not improve it. He continues to have a very low urine output. Currently, his ur ine output is less than 10 mL per hour. He is diffusely edematous all over, currently intubated on ventilator. The pulmonary service was initially planning to wean him off from the respiratory but du e to his metabolic acidosis and the fluid overload recommended to have a nephrology consultation for possible ultrafiltration and fluid removal due to his acute renal failure. REVIEW OF SYSTEMS: Unable to obtain from the patient since he is currently intubated, but he is louis rt, awake. Follows the commands. The patient's is at bedside. 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 REASON FOR ADMISSION: This admission is for septic shock secondary to aspiration pneumonia and corby rafiq outlet obstruction, status post duodenal stent. PAST SURGICAL HISTORY: History of a duodenal stent placement during this admission. SOCIAL HISTORY: No smoking, alcohol or recreational drug use. FAMILY HISTORY: Not available. PHYSICAL EXAMINATION: VITAL SIGNS: Temperature 98.6, heart rate 93, respirations 25, blood pressure 107/69, saturation is 95% on FIO2 40%. GENERAL: Patient is awake, intubated on ventilator, currently ____ . EG-tube in place, site is stephanie ar. No erythema, no discharge. NECK: Supple, no JVD, no lymphadenopathy, mid jugular venous distention up to the mid neck. LUNGS: Decreased breath sounds, bilateral coarse breath sounds present with bibasilar crackles up t o the mid lung zone. HEART: S1, S2, with regular rhythm, tachycardia. No murmur. ABDOMEN: Soft, nontender, nondistended, tender to palpation diffusely all over. No rebound, no gua rding. EXTREMITIES: 2 to 3+ pitting edema all the way up to the thigh and also has sacral edema. NEUROLOGI DAVE: Uncooperative for exam at this point since he is currently intubated. SKIN: No rash. LABORATORY DATA/DIAGNOSTIC IMAGIN. Sodium 141, potassium 4.2, chloride 108, bicarbonate 17, BUN 38, creatinine 0.8, glucose 129, ca lcium 7.5. LFTs are slightly elevated but improving compared to previous admission. 2. WBC 19.7, hemoglobin 7.7, platelet count 195. PT 15.6, PTT 35.1, INR 1.23. 3. Toxicology level shows vancomycin trough level of 29.7. 4. Urinalysis positive for urinary tract infection on admission. IMPRESSION: This is a 60-year-old male who has been admitted for septic shock secondary to aspirati on pneumonia and patient's creatinine was normal up to 0.44 on 07/12/2016 and in the last 24 to 48 h ours his creatinine bumped up, his urine output drops out to less than 10 mL per hour and renal has been consulted for. 1. Acute fluid overload with anasarca. 2. Acute kidney injury secondary to acute tubular necrosis from septic shock and also contributing vancomycin. 3. Metabolic acidosis secondary to acute renal failure. 4. 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 5. Septic shock secondary to aspiration pneumonia and gastric outlet obstruction, status post duode nal stent placement. PLAN: Thank you, Dr. Fenton/Dr. Falcon for this consultation. The patient likely has acute tubular n ecrosis from his sepsis and vancomycin toxicity, but most likely explanation is acute tubular necros is from sepsis. 1. I will arrange the patient to have a Kale temporary dialysis catheter placement and will do u ltrafiltration for 1 hour today and 1 hour of dialysis for his fluid removal. The patient has a met abolic acidosis with the help of the dialysis, expecting the metabolic acidosis to improve but if th e patient's family refused to have hemodialysis then we will consider a bicarbonate drip. 2. Currently, his urine output is than 10 mL per hour. I will continue to monitor his urine output and depending on his urine output will plan for another hemodialysis tomorrow morning. 3. The patient currently seen in the ICU and he will be followed up along with the pulmonary servic e, GI service, primary service and the hematology/oncology service. 4. The patient's was at bedside, the caterer helper edit has been used for explaining abou t the need for hemodialysis. All the procedures, risks and complications of a dialysis catheter has been explained to the at bedside. She understood and verbalized understanding. We will arran ge his hemodialysis as soon as the consent is signed. 5. Total time spent in this patient's evaluation making assessment and plan, coming up with a plan for hemodialysis, explaining to the patient's family with the help of caterer helper and communi cating with the nursing staff took more than 90 minutes. 6. The patient currently seen in the ICU and will be followed up along with other specialty service . Dictated By: SHANAE LEWIS MD, KP/ANN MARIE Conf#: [id number] DID#: [id number]
[2016-07-14 12:03] LABS: IRON 21 ug/dl (35-150)
[2016-07-14] MEDS: FLUCONAZOLE 100 MG/NS (PMX) 50 ML IVPB SCH (12:07)
[2016-07-14 12:13] LABS: TOTAL IRON BINDING CAPACITY 148 ug/dl (241-421)
[2016-07-14 12:18] LABS: LACTATE DEHYDROGENASE 948 IU/L (313-618)
--- NOTE | 2016-07-14 12:23 | RADRPT ---
PROCEDURE: ULTRASOUND GUIDED PLACEMENT OF LEFT INTERNAL JUGULAR VENOUS TEMPORARY DIALYSIS CATHETER . CLINICAL INDICATION: Renal failure. TECHNIQUE: Informed consent was obtained. The risks including bleeding and infection were explained to the pat ient's family. The patient's family understood and was willing to proceed. A procedural pause was performed. The patient's name, date of , and procedure to be performed were verified. Limited sonography of the left neck was performed. Noted is a patent left internal jugular vein. The centr al line was inserted with all elements of maximal sterile barrier technique. All of the following we re used: head covering, facial mask, sterile gown, sterile gloves, a large sterile sheet, hand hygie ne, and 2% chlorhexidine for cutaneous antisepsis. The left neck and anterior superior chest wall was prepped and draped in the usual sterile fashion. Using local anesthesia, sterile technique, and ultrasound guidance, a 20-gauge needle was advanced i nto the left internal jugular vein in the supraclavicular region. The 0.018 inch floppy tip guidewi re was advanced through the needle into the superior vena cava. A 5-Bur[place]ian sheath was advanced over the guidewire. The guidewire was removed and a 0.035 inch guidewire was advanced into the superior vena cava. Serial dilatation was performed to 12 [place]. The temporary dialysis catheter was then advanced over the guidewire such that the tip was placed in the right atrium. A 20 cm long, 11.5 F rench dual-lumen Mahurkar temporary dialysis catheter was used. The two ports were each flushed wit h 1.8 ml of 1:1000 heparin. The catheter was secured to the skin with 2-0 monofilament. The site was dressed. The patient tolerated the procedure well. COMPARISON: None. FINDINGS: Ultrasound images were recorded and stored in the patient's medical record. The ultrasound images demonstrate the needle entering the left internal jugular vein. IMPRESSION: 1. Satisfactory insertion of left internal jugular vein temporary dialysis catheter with ultrasound guidance. RPTAT: QQ .Naldo Oneal MD, MD Date Time Electronically viewed and signed by .Naldo Oneal MD, on 07/14/2016 12:23 .R/
--- NOTE | 2016-07-14 13:10 | CONS ---
Date/Time of Note Date/Time of Note DATE: 07/14/16 TIME: 13:06 Assessment/Plan Assessment/Plan Chief Complaint/Hosp Course 60 year old male with metastatic urothelial cancer who had presented during the last admission with gastric outlet obstruction status post duodenal stent . It was initially thought GI primary and FOLFOX given 06/04/16 based on prelim path and severe obstructive symptoms, however further path review showed primary. Patient now readmitted with sepsis with abdominal pain. # metastatic urothelial cancer - CT A/P demonstrates infiltrative neoplasm involving the cecum, ascending colon and hepatic flexure with extension of tumor to the serosa involving the lateral wall of the duodenum. This has advanced as compared to 05/27/2016. - I had planned to start gemcitabine 1000 mg/m2 D1, 8 and carboplatin AUC 4.5 D1 however wanted to hold off for now until adequately treated with at least 14 days of antibiotics for bacteremia. If patient remained stable, I had planned to give chemo at the end of this week, however patient now with worsening of left lung pneumonia concerning for aspiration during EGD, tachycardic, hypotensive, intubated, on sedation, one pressor, broad spectrum antibiotics. Given rapidly growing tumor, would want to start chemo ISSA when patient more stable. - discussed with Dr. De, duodenal stent obstructed by tumor, status post new internal biliary catheter 07/11/16 - Dr. Nolan to arrange for POLST form to be filled out - acute drop in Hemogloin noted, no evidence of bleeding, will check iron panel , ferritin, Vitamin B12/folate, LDH, retic count. # E. coli bacteremia - with sepsis secondary to biliary obstruction s/p attempted unsuccessful ERCP 07/03, s/p external percutaneous biliary drainage 07/05 - Last blood cultures were clear from 07/05/16 - will hold on removing the port for now. If ID feels it is necessary to remove and if bacteremia does not clear, will remove at that time # Renal failure, nephrology consult, possible dialysis # Biliary obstruction - per GI, patient Bili is stable. - s/p percutaneous biliary drain given rise in bilirubin. T bili now down to 1.6 - status post new biliary catheter 07/11/16 - status post EGD that demonstrated gastric outlet obstruction with tumor growing over stent and almost complete obstructing lumen, may need gastrojejunostomy vs. another stent per GI # Diabetic Gastroparesis - cont reglan; erythromycin added as prokinetic agent per GI Problems: Consultation Date/Type/Reason Admit Date/Time Jun 30, 2016 at 15:42 Initial Consult Date 06/30/16 Type of Consultation: Oncology Referring Provider: GAMALIEL HAIR MD 24 HR Interval Summary Free Text/Dictation Patient intubated, sedated, unable to be weaned off vent yesterday. No evidence of bleeding. No longer on pressors. Exam/Review of Systems Vital Signs Vitals Vital Signs Date Time Temp Pulse Resp B/P Pulse Ox O2 Delivery O2 Flow Rate FiO2 07/14/16 12:45 90 23 110/68 96 Mechanical Ventilator 07/14/16 12:00 98.8 07/14/16 09:28 40 07/12/16 10:30 3.0 Intake and Output 07/13/16 07/13/16 07/14/16 15:00 23:00 07:00 Intake Total 1129.725 ml 919.50 ml 1162.6 ml Output Total 170 ml 470 ml 452 ml Balance 959.725 ml 449.50 ml 710.6 ml Exam Constitutional: intubated, sedated Eyes: nl conjunctiva ENMT: nl external ears & nose Neck: non-tender, supple Respiratory: mechanical breath sounds Cardiovascular: regular rate and rhythm Gastrointestinal: soft Musculoskeletal: nl extremities to inspection, nl gait and stance Results Result Diagram: 07/14/16 0925 07/14/16 0400 Results 24 hrs Laboratory Tests Test 07/13/16 15:05 07/14/16 04:00 07/14/16 07:00 07/14/16 09:25 Vancomycin Level Trough 29.7 *H White Blood Count 19.7 H Red Blood Count 2.63 #L Hemoglobin 7.9 #L 7.7 L Hematocrit 24.6 L 23.9 L Mean Corpuscular Volume 93.5 Mean Corpuscular Hemoglobin 30.0 Mean Corpuscular Hemoglobin Concent 32.1 Red Cell Distribution Width 19.7 H Platelet Count 195 Mean Platelet Volume 10.2 Neutrophils % Eosinophils % Neutrophils # Eosinophils # Sodium Level 141 Potassium Level 4.2 Chloride Level 108 Carbon Dioxide Level 17 L Anion Gap 20 H Blood Urea Nitrogen 38 #H Creatinine 2.85 #H Glucose Level 129 Calcium Level 7.5 L Blood Gas Specimen Source Blood arterial Arterial Blood Date Drawn 07/14/2016 8:11:21 AM Arterial Blood pH (Temp corrected) 7.406 Arterial Blood pCO2 (Temp correct) 25.7 L Arterial Blood pO2 (Temp corrected) 74.3 L Arterial Blood HCO3 15.8 L Arterial Blood Base Excess -7.9 L Arterial Blood Oxygen Saturation 94.1 L Og Test ACCEPTAB Arterial Blood Gas Puncture Site Right Radial Arterial Blood Carboxyhemoglobin 0.3 Arterial Blood Methemoglobin 0.6 Blood Gas A-a O2 Differential 181.3 H Oxyhemoglobin Percent 93.3 Total Hemoglobin 8.3 L Blood Gas Temperature 37.0 Blood Gas Respiration Rate 16.0 Blood Gas Actual Respiration Rate 25 Blood Gas Modality VENT - AC FiO2 40.0 Blood Gas Tidal Volume 600.0 Blood Gas Low PEEP Setting 5.0 Blood Gas Notified Whom JLD Blood Gas Notified Time 07/14/2016 8:46:01 AM Iron Level 21 L Total Iron Binding Capacity 148 L Percent Iron Saturation 14 L Ferritin Pending Lactate Dehydrogenase 948 H Vitamin B12 Level Pending Folate Pending Medications Medications Current Medications Potassium Chloride/Sodium Chloride (NS-KCl 20 Meq) 1,000 ml @ 100 mls/hr Q10H IV Last administered on 07/14/16 04:17; Admin Dose 100 MLS/HR; Start 06/30/16 at 16:18 Ondansetron HCl (Zofran Inj) 4 mg Q6H PRN IV NAUSEA AND/OR VOMITING Last administered on 07/12/16 03:27; Admin Dose 4 MG; Start 06/30/16 at 16:30 Acetaminophen (Tylenol Tab) 650 mg Q6H PRN PO PAIN LEVEL 1-3 OR FEVER Last administered on 07/05/16 19:31; Admin Dose 650 MG; Start 06/30/16 at 16:30 Acetaminophen (Tylenol Supp) 650 mg Q6H PRN [place] PAIN LEVEL 1-3 OR FEVER; Start 06/30/16 at 16:30 Acetaminophen/ Hydrocodone Bitart (Hecker (5/325)) 1 tab Q6H PRN PO MODERATE PAIN LEVEL 4-6 Last administered on 07/10/16 22:33; Admin Dose 1 TAB; Start at 16:30 Acetaminophen/ Hydrocodone Bitart (Hecker (5/325)) 2 tab Q6H PRN PO SEVERE PAIN LEVEL 7-10 Last administered on 07/10/16 13:15; Admin Dose 2 TAB; Start at 16:30 Morphine Sulfate (morphine) 2 mg Q4H PRN IV SEVERE PAIN LEVEL 7-10 Last administered on 07/11/16 21:35; Admin Dose 2 MG; Start 06/30/16 at 16:30 Docusate Sodium (Colace) 100 mg Q12H PRN PO CONSTIPATION; Start 06/30/16 at 16: 30 Magnesium Hydroxide (Milk Of Mag) 30 ml DAILY PRN PO CONSTIPATION; Start at 16:30 Bisacodyl (Dulcolax Supp) 10 mg DAILY PRN [place] CONSTIPATION; Start 06/30/16 at 16 :30 Pantoprazole (Protonix Iv) 40 mg DAILY@06 IV Last administered on 07/14/16 05: 26; Admin Dose 40 MG; Start 07/01/16 at 06:00 Metoclopramide HCl 10 mg 10 mg Q6 IV Last administered on 07/14/16 12:07; Admin Dose 10 MG; Start 07/03/16 at 18:00 Erythromycin Lactobionate/ Sodium Chloride (Erythromycin Lactobionate/NS) 100 ml @ 100 mls/hr Q6 IVPB Last administered on 07/14/16 05:30; Admin Dose 100 MLS/HR; Start 07/09/16 at 00:00 Methylprednisolone Sodium Succinate 40 mg 40 mg Q6 IV Last administered on 07/14 12:07; Admin Dose 40 MG; Start 07/12/16 at 13:30 Propofol 100 ml @ 2.1 mls/hr Q12H IV Last administered on 07/14/16 08:20; Admin Dose 14.7 MLS/HR; Start 07/12/16 at 21:00 Norepinephrine 16 mg/Dextrose 500 ml @ 1.87 mls/hr TITRATE IV Last administered on 07/13/16 13:43; Admin Dose 18.75 MLS/HR; Start 07/13/16 at 08: 00 Meropenem 100 ml @ 200 mls/hr Q12 IVPB Last administered on 07/14/16 08:20; Admin Dose 200 MLS/HR; Start 07/13/16 at 21:00 Fluconazole/ Sodium Chloride 50 ml @ 50 mls/hr Q24H IVPB Last administered on t 12:07; Admin Dose 50 MLS/HR; Start 07/14/16 at 11:00 Vancomycin HCl (Vancocin) 250 ml @ 125 mls/hr Q48H IVPB ; Start 07/15/16 at 12: 00 DARBY KNOWLES MD July 14, 2016 13:10
--- NOTE | 2016-07-14 13:11 | RADRPT ---
AMENDMENT: 07/14/2016 3:59:41 PM Naldo Oneal Md Correction: The images also demonstrates a new tunneled left internal jugular vein dialysis cathete r with the tip in the upper right atrium. There is no pneumothorax. PROCEDURE: XR Chest. CLINICAL INDICATION: Shortness of breath. TECHNIQUE: Single frontal view. COMPARISON: 07/14/2016. 0549 hours. FINDINGS: The endotracheal tube, nasogastric tube, right internal jugular vein implanted port central venous c atheter remain in satisfactory position. A right upper quadrant abdomen drain is once again noted. Bilateral pulmonary air space disease with left worse than right is slightly improved. The heart size is normal. There is no pleural effusion. There is no pneumothorax. IMPRESSION: 1. Slightly improved appearance of the lungs. 2. No other change from 07/14/2016 at 0549 hours. RPTAT: QQ .Naldo Oneal MD, MD Date Time Electronically viewed and signed by .Naldo Oneal MD, MD on 07/14/2016 15:59 .R/
--- NOTE | 2016-07-14 13:14 | PN ---
DATE: 07/14/2016 SUBJECTIVE: No acute changes. The patient remains intubated on pressors, looks comfortable. Spiki ng fevers with a temperature maximum earlier today was 100.2. LABORATORY DATA: WBC today 19.7, H and H 7.7 and 23.9, platelets 195. BUN 38, creatinine 2.85. ANTIMICROBIALS: 1. Fluconazole. 2. Vancomycin. 3. Meropenem. 4. Erythromycin. INDWELLINGS: Right chest Port-A-Cath, endotracheal tube, NG tube, Langley catheter. PHYSICAL EXAMINATION: GENERAL: This is a well-developed, well-nourished elderly man who is intubated and sedated, in no d istress. HEENT: Head atraumatic, normocephalic. Sclerae anicteric. Buccal mucosa dry. NECK: Supple. CHEST: Rise symmetrical. Breath sounds diminished to bases. HEART: S1, S2. ABDOMEN: Soft. Bowel sounds hypoactive. EXTREMITIES: Without cyanosis. ASSESSMENT: 1. Acute hypoxemic respiratory failure. 2. Aspiration pneumonia, status post EGD. 3. Septic shock with multisystem organ failure. 4. Biliary obstruction, status post attempted unsuccessful ERCP on 07/03/2016, status post PTC on 0 07/05/2016, status post EGD on 07/13/2016 that showed tumor growing over the stent and causing obstru ction. 5. Status post Escherichia coli bacteremia. 6. Urinary tract infection with the culture grew pseudomonas and Chelsy albicans. 7. Diabetic gastroparesis. 8. Acute renal failure. 9. Metastatic urothelial cancer. PLAN: The patient remains unchanged. Overall, not improving. His renal function is getting worse. Plan for hemodialysis. Continue antibiotics. Dictated By: MARIELA ROBIN DIRECTOR [facility] for [facility] JOSE[facility] MD NI/NTS Conf#: [id number] DID#: [id number]
[2016-07-14 13:57] LABS: LYMPHOCYTES # 0.6 10^3/ul (0.8-2.9); MONOCYTE # 1.8 10^3/ul (0.3-0.9); NEUTROPHIL # 13.2 10^3/ul (1.6-7.5)
--- NOTE | 2016-07-14 14:45 | PN ---
Date/Time of Note Date/Time of Note DATE: 07/14/16 TIME: 14:43 Assessment/Plan VTE Prophylaxis VTE Prophylaxis Intervention: SCD's Lines/Catheters IV Catheter Type (from Nrsg): JORDY Assessment/Plan Chief Complaint/Hosp Course 1. Septic Shock 2/2 Aspiration PNA -cont Vanco and Zosyn 2. Transaminitis with Hyperbilirubinemia 2nd biliary obstruction from metastatic cancer -as above 3. Metastatic Urothelial cancer with possible carcinomatosis -heme/onc to start chemotherapy 4. Hx obstructed duodenum with gastric outlet obstruction s/p duodenal stent Repeat duodenal stent placed today 5. Steatosis -Eventual nutrition and lifestyle optimization 6. Acute Respiratory Failure secondary to aspiration pneumonia cont vent management Continue Vanco and Zosyn Pulmonology consultation appreciated 7. CHARITY with fluid OD -Nephro consult appreciated, plan is for ultrafiltration Prophylaxis: SCDs Problems: Subjective 24 Hr Interval Summary Subjective hx not possible: pt non-verbal Exam/Review of Systems Vital Signs Vitals Vital Signs Date Time Temp Pulse Resp B/P Pulse Ox O2 Delivery O2 Flow Rate FiO2 07/14/16 13:41 92 25 94 30 07/14/16 12:45 110/68 Mechanical Ventilator 07/14/16 12:00 98.8 07/12/16 10:30 3.0 Intake and Output 07/13/16 07/13/16 07/14/16 15:00 23:00 07:00 Intake Total 1129.725 ml 919.50 ml 1162.6 ml Output Total 170 ml 470 ml 452 ml Balance 959.725 ml 449.50 ml 710.6 ml Exam Constitutional: non-verbal ENMT: intubated Respiratory: clear to auscultation Cardiovascular: regular rate and rhythm Gastrointestinal: soft, No distended Musculoskeletal: nl extremities to inspection Results Result Diagram: 07/14/16 0925 07/14/16 0400 Results 24 hrs Laboratory Tests Test 07/13/16 15:05 07/14/16 04:00 07/14/16 07:00 07/14/16 09:25 Vancomycin Level Trough 29.7 *H White Blood Count 19.7 H Red Blood Count 2.63 #L Hemoglobin 7.9 #L 7.7 L Hematocrit 24.6 L 23.9 L Mean Corpuscular Volume 93.5 Mean Corpuscular Hemoglobin 30.0 Mean Corpuscular Hemoglobin Concent 32.1 Red Cell Distribution Width 19.7 H Platelet Count 195 Mean Platelet Volume 10.2 Neutrophils % 67.0 Band Neutrophils % 19.0 H Lymphocytes % 3.0 L Monocytes % 9.0 Eosinophils % Metamyelocytes % 2.0 H Neutrophils # 13.2 H Lymphocytes # 0.6 L Monocytes # 1.8 H Eosinophils # Metamyelocytes # 0.4 Sodium Level 141 Potassium Level 4.2 Chloride Level 108 Carbon Dioxide Level 17 L Anion Gap 20 H Blood Urea Nitrogen 38 #H Creatinine 2.85 #H Glucose Level 129 Calcium Level 7.5 L Blood Gas Specimen Source Blood arterial Arterial Blood Date Drawn 07/14/2016 8:11:21 AM Arterial Blood pH (Temp corrected) 7.406 Arterial Blood pCO2 (Temp correct) 25.7 L Arterial Blood pO2 (Temp corrected) 74.3 L Arterial Blood HCO3 15.8 L Arterial Blood Base Excess -7.9 L Arterial Blood Oxygen Saturation 94.1 L Og Test ACCEPTAB Arterial Blood Gas Puncture Site Right Radial Arterial Blood Carboxyhemoglobin 0.3 Arterial Blood Methemoglobin 0.6 Blood Gas A-a O2 Differential 181.3 H Oxyhemoglobin Percent 93.3 Total Hemoglobin 8.3 L Blood Gas Temperature 37.0 Blood Gas Respiration Rate 16.0 Blood Gas Actual Respiration Rate 25 Blood Gas Modality VENT - AC FiO2 40.0 Blood Gas Tidal Volume 600.0 Blood Gas Low PEEP Setting 5.0 Blood Gas Notified Whom [facility] Blood Gas Notified Time 07/14/2016 8:46:01 AM Absolute Reticulocyte Count 0.074 Percent Reticulocyte Count 3.0 H Iron Level 21 L Total Iron Binding Capacity 148 L Percent Iron Saturation 14 L Ferritin 601.0 H Lactate Dehydrogenase 948 H Vitamin B12 Level > 1000 H Folate 5.0 Medications Medications Current Medications Potassium Chloride/Sodium Chloride (NS-KCl 20 Meq) 1,000 ml @ 100 mls/hr Q10H IV Last administered on 07/14/16 04:17; Admin Dose 100 MLS/HR; Start 06/30/16 at 16:18 Ondansetron HCl (Zofran Inj) 4 mg Q6H PRN IV NAUSEA AND/OR VOMITING Last administered on 07/12/16 03:27; Admin Dose 4 MG; Start 06/30/16 at 16:30 Acetaminophen (Tylenol Tab) 650 mg Q6H PRN PO PAIN LEVEL 1-3 OR FEVER Last administered on 07/05/16 19:31; Admin Dose 650 MG; Start 06/30/16 at 16:30 Acetaminophen (Tylenol Supp) 650 mg Q6H PRN [place] PAIN LEVEL 1-3 OR FEVER; Start 06/30/16 at 16:30 Acetaminophen/ Hydrocodone Bitart ([place] (5/325)) 1 tab Q6H PRN PO MODERATE PAIN LEVEL 4-6 Last administered on 07/10/16 22:33; Admin Dose 1 TAB; Start at 16:30 Acetaminophen/ Hydrocodone Bitart ([place] (5/325)) 2 tab Q6H PRN PO SEVERE PAIN LEVEL 7-10 Last administered on 07/10/16 13:15; Admin Dose 2 TAB; Start at 16:30 Morphine Sulfate (morphine) 2 mg Q4H PRN IV SEVERE PAIN LEVEL 7-10 Last administered on 07/11/16 21:35; Admin Dose 2 MG; Start 06/30/16 at 16:30 Docusate Sodium (Colace) 100 mg Q12H PRN PO CONSTIPATION; Start 06/30/16 at 16: 30 Magnesium Hydroxide (Milk Of Mag) 30 ml DAILY PRN PO CONSTIPATION; Start at 16:30 Bisacodyl (Dulcolax Supp) 10 mg DAILY PRN [place] CONSTIPATION; Start 06/30/16 at 16 :30 Pantoprazole (Protonix Iv) 40 mg DAILY@06 IV Last administered on 07/14/16 05: 26; Admin Dose 40 MG; Start 07/01/16 at 06:00 Metoclopramide HCl 10 mg 10 mg Q6 IV Last administered on 07/14/16 12:07; Admin Dose 10 MG; Start 07/03/16 at 18:00 Erythromycin Lactobionate/ Sodium Chloride (Erythromycin Lactobionate/NS) 100 ml @ 100 mls/hr Q6 IVPB Last administered on 07/14/16 13:15; Admin Dose 100 MLS/HR; Start 07/09/16 at 00:00 Methylprednisolone Sodium Succinate 40 mg 40 mg Q6 IV Last administered on 07/14 12:07; Admin Dose 40 MG; Start 07/12/16 at 13:30 Propofol 100 ml @ 2.1 mls/hr Q12H IV Last administered on 07/14/16 08:20; Admin Dose 14.7 MLS/HR; Start 07/12/16 at 21:00 Norepinephrine 16 mg/Dextrose 500 ml @ 1.87 mls/hr TITRATE IV Last administered on 07/13/16 13:43; Admin Dose 18.75 MLS/HR; Start 07/13/16 at 08: 00 Meropenem 100 ml @ 200 mls/hr Q12 IVPB Last administered on 07/14/16 08:20; Admin Dose 200 MLS/HR; Start 07/13/16 at 21:00 Fluconazole/ Sodium Chloride 50 ml @ 50 mls/hr Q24H IVPB Last administered on 12:07; Admin Dose 50 MLS/HR; Start 07/14/16 at 11:00 Vancomycin HCl (Vancocin) 250 ml @ 125 mls/hr Q48H IVPB ; Start 07/15/16 at 12: 00 ERNESTINA CANTU July 14, 2016 14:44
[2016-07-15] VITALS (57 sets, daily range): BP systolic 94–118; BP diastolic 63–79; PULSE 59–100; RESP 17–40
[2016-07-15] MEDS: ALBUTEROL 18 GM INHALER INH PRN (00:55)
[2016-07-15] MEDS: IPRATROPIUM (HFA) 12.9 GM INHALER INH PRN (00:55)
[2016-07-15] MEDS: PROPOFOL 100 ML IV SCH ×4 (03:00→22:08)
[2016-07-15 04:51] LABS: ADD SCAN DIFF NO
[2016-07-15 04:56] LABS: ABNORMAL IP MESSAGE 1; HEMOGLOBIN 9.3 g/dl (14.0-18.0); MEAN CORPUSCULAR HEMOGLOBIN 31.7 pg (29.0-33.0); MEAN CORPUSCULAR HGB CONC 34.4 g/dl (32.0-37.0); MEAN CORPUSCULAR VOLUME 92.2 fl (82.0-101.0); MEAN PLATELET VOLUME 10.7 fl (7.4-10.4); PLATELET COUNT 164 10^3/UL (140-415); RED BLOOD COUNT 2.93 10^6/ul (4.70-6.10); RED CELL DISTRIBUTION WIDTH 18.7 % (11.5-14.5); WHITE BLOOD COUNT 19.9 10^3/ul (4.8-10.8)
[2016-07-15 05:20] LABS: POTASSIUM 4.4 mmol/L (3.5-5.1)
[2016-07-15 05:23] LABS: CALCIUM 7.5 mg/dl (8.4-10.2); MAGNESIUM 2.1 mg/dl (1.7-2.5)
[2016-07-15 05:30] LABS: CREATININE 2.67 mg/dl (0.61-1.24)
[2016-07-15] MEDS: METHYLPREDNISOLONE 40 MG INJ IV SCH ×3 (05:41→18:23)
[2016-07-15] MEDS: ERYTHROMYCIN LACTOBIONATE 250 MG in SOD CHLORIDE 0.9% 100 ML IVPB SCH ×4 (05:41→20:58)
[2016-07-15] MEDS: PANTOPRAZOLE 40 MG INJ IV SCH (05:41)
[2016-07-15] MEDS: METOCLOPRAMIDE 10 MG INJ IV SCH ×3 (05:41→18:23)
[2016-07-15] MEDS: NS + KCL 20 MEQ 1,000 ML IV SCH ×2 (05:42→20:57)
[2016-07-15 08:44] LABS: AADO2 Arterial 149.3 mmHg (7.0-24.0); Arterial Base Excess -6.2 mmol/L (-3.0-3); Arterial COHb 0.1 % (0.0-3.0); Arterial Fraction of Oxyhgb 93.8 % (93.0-99.0); Arterial HCO3 16.5 mmol/L (22.0-26.0); Arterial MetHb 0.1 % (0.0-1.5); Arterial Total Hemglobin 10.5 g/dl (12.0-18.0); MODE VENT - AC
[2016-07-15 08:45] LABS: Allen Test ACCEPTAB
[2016-07-15 08:59] LABS: ANISOCYTOSIS 1+; LYMPHOCYTES # 0.2 10^3/ul (0.8-2.9); NEUTROPHIL # 19.7 10^3/ul (1.6-7.5)
--- NOTE | 2016-07-15 09:07 | CONS ---
Date/Time of Note Date/Time of Note DATE: 07/15/16 TIME: 09:04 Assessment/Plan Assessment/Plan Chief Complaint/Hosp Course 60 year old male with metastatic urothelial cancer who had presented during the last admission with gastric outlet obstruction status post duodenal stent . It was initially thought GI primary and FOLFOX given 06/04/16 based on prelim path and severe obstructive symptoms, however further path review showed primary. Patient now readmitted with sepsis with abdominal pain. # metastatic urothelial cancer - CT A/P demonstrates infiltrative neoplasm involving the cecum, ascending colon and hepatic flexure with extension of tumor to the serosa involving the lateral wall of the duodenum. This has advanced as compared to 05/27/2016. - I had planned to start gemcitabine 1000 mg/m2 D1, 8 and carboplatin AUC 4.5 D1 however wanted to hold off for now until adequately treated with at least 14 days of antibiotics for bacteremia. If patient remained stable, I had planned to give chemo at the end of this week, however patient now with worsening of left lung pneumonia concerning for aspiration during EGD, tachycardic, hypotensive, intubated, on sedation, one pressor, broad spectrum antibiotics. Given rapidly growing tumor, would want to start chemo ISSA when patient more stable. - discussed with Dr. De, duodenal stent obstructed by tumor, status post new internal biliary catheter 07/11/16 - Dr. Nolan to arrange for POLST form to be filled out - acute drop in Hemog[place]in noted yesterday, s/p 1 unit pRBCs now Hgb 9.3, no evidence of bleeding, iron panel Fe 21, TIBC 148 (low), %14, ferritin 601 consistent with anemia of chronic inflammation, Vitamin B12/folate WNL, retic count inappropriately low; LDH elevated at 948, will check haptoglobin, LFTs to eval for hemolysis but lower suspicion. Will request peripheral smear review given metamyelocytes noted on differential. # E. coli bacteremia - with sepsis secondary to biliary obstruction s/p attempted unsuccessful ERCP 07/03, s/p external percutaneous biliary drainage 07/05 - Last blood cultures were clear from 07/05/16 - will hold on removing the port for now. If ID feels it is necessary to remove and if bacteremia does not clear, will remove at that time # Renal failure, nephrology consult, plan for UF today. # Biliary obstruction - per GI, patient Bili is stable. - s/p percutaneous biliary drain given rise in bilirubin. T bili now down to 1.6 - status post new biliary catheter 07/11/16 - status post EGD that demonstrated gastric outlet obstruction with tumor growing over stent and almost complete obstructing lumen, may need gastrojejunostomy vs. another stent per GI # Diabetic Gastroparesis - cont reglan; erythromycin added as prokinetic agent per GI Problems: Consultation Date/Type/Reason Admit Date/Time Jun 30, 2016 at 15:42 Initial Consult Date 06/30/16 Type of Consultation: Oncology Referring Provider: GAMALIEL HAIR MD 24 HR Interval Summary Free Text/Dictation No significant changes. Patient still intubated, sedated. May try to wean from vent today. No evidence of bleeding. Received 1 unit pRBCs yesterday. Exam/Review of Systems Vital Signs Vitals Vital Signs Date Time Temp Pulse Resp B/P Pulse Ox O2 Delivery O2 Flow Rate FiO2 07/15/16 06:30 82 28 118/79 96 Mechanical Ventilator 07/15/16 05:58 35 07/15/16 04:00 98.8 07/12/16 10:30 3.0 Intake and Output 07/14/16 07/14/16 07/15/16 15:00 23:00 07:00 Intake Total 1367.6 ml 2267.6 ml 732.9 ml Output Total 105 ml 1950 ml 400 ml Balance 1262.6 ml 317.6 ml 332.9 ml Exam Constitutional: intubated, sedated Eyes: nl conjunctiva ENMT: nl external ears & nose Neck: non-tender, supple Respiratory: mechanical breath sounds Cardiovascular: regular rate and rhythm Gastrointestinal: soft Musculoskeletal: nl extremities to inspection, nl gait and stance Results Result Diagram: 07/15/16 0430 07/15/16 0430 Results 24 hrs Laboratory Tests Test 07/14/16 09:25 07/15/16 04:30 07/15/16 05:19 07/15/16 07:00 Hemoglobin 7.7 L 9.3 #L Hematocrit 23.9 L 27.0 L Absolute Reticulocyte Count 0.074 Percent Reticulocyte Count 3.0 H Iron Level 21 L Total Iron Binding Capacity 148 L Percent Iron Saturation 14 L Ferritin 601.0 H Lactate Dehydrogenase 948 H Vitamin B12 Level > 1000 H Folate 5.0 White Blood Count 19.9 H Red Blood Count 2.93 L Mean Corpuscular Volume 92.2 Mean Corpuscular Hemoglobin 31.7 Mean Corpuscular Hemoglobin Concent 34.4 Red Cell Distribution Width 18.7 H Platelet Count 164 Mean Platelet Volume 10.7 H Neutrophils % 99.0 H Lymphocytes % 1.0 L Eosinophils % Neutrophils # 19.7 H Lymphocytes # 0.2 L Eosinophils # Anisocytosis 1+ Sodium Level 139 Potassium Level 4.4 Chloride Level 108 Carbon Dioxide Level 18 L Anion Gap 17 H Blood Urea Nitrogen 47 H Creatinine 2.67 H Glucose Level 133 Calcium Level 7.5 L Magnesium Level 2.1 Random Vancomycin Level 18.7 Lab Scanned Report BLOOD TRANSFUSION Blood Gas Specimen Source Blood arterial Arterial Blood Date Drawn 07/15/2016 7:20:00 AM Arterial Blood pH (Temp corrected) 7.445 Arterial Blood pCO2 (Temp correct) 24.5 L Arterial Blood pO2 (Temp corrected) 71.8 L Arterial Blood HCO3 16.5 L Arterial Blood Base Excess -6.2 L Arterial Blood Oxygen Saturation 94.0 L Og Test ACCEPTAB Arterial Blood Gas Puncture Site Left Radial Arterial Blood Carboxyhemoglobin 0.1 Arterial Blood Methemoglobin 0.1 Blood Gas A-a O2 Differential 149.3 H Oxyhemoglobin Percent 93.8 Total Hemoglobin 10.5 L Blood Gas Temperature 37.0 Blood Gas Respiration Rate 16.0 Blood Gas Actual Respiration Rate 21 Blood Gas Modality VENT - AC FiO2 35.0 Blood Gas Tidal Volume 600.0 Blood Gas Low PEEP Setting 5.0 Blood Gas Notified Whom [facility] Blood Gas Notified Time 07/15/2016 8:43:00 AM Medications Medications Current Medications Potassium Chloride/Sodium Chloride (NS-KCl 20 Meq) 1,000 ml @ 100 mls/hr Q10H IV Last administered on 07/15/16 05:42; Admin Dose 100 MLS/HR; Start 06/30/16 at 16:18 Ondansetron HCl (Zofran Inj) 4 mg Q6H PRN IV NAUSEA AND/OR VOMITING Last administered on 07/12/16 03:27; Admin Dose 4 MG; Start 06/30/16 at 16:30 Acetaminophen (Tylenol Tab) 650 mg Q6H PRN PO PAIN LEVEL 1-3 OR FEVER Last administered on 07/05/16 19:31; Admin Dose 650 MG; Start 06/30/16 at 16:30 Acetaminophen (Tylenol Supp) 650 mg Q6H PRN [place] PAIN LEVEL 1-3 OR FEVER; Start 06/30/16 at 16:30 Acetaminophen/ Hydrocodone Bitart ([place] (5/325)) 1 tab Q6H PRN PO MODERATE PAIN LEVEL 4-6 Last administered on 07/10/16 22:33; Admin Dose 1 TAB; Start at 16:30 Acetaminophen/ Hydrocodone Bitart ([place] (5/325)) 2 tab Q6H PRN PO SEVERE PAIN LEVEL 7-10 Last administered on 07/10/16 13:15; Admin Dose 2 TAB; Start at 16:30 Morphine Sulfate (morphine) 2 mg Q4H PRN IV SEVERE PAIN LEVEL 7-10 Last administered on 07/11/16 21:35; Admin Dose 2 MG; Start 06/30/16 at 16:30 Docusate Sodium (Colace) 100 mg Q12H PRN PO CONSTIPATION; Start 06/30/16 at 16: 30 Magnesium Hydroxide (Milk Of Mag) 30 ml DAILY PRN PO CONSTIPATION; Start at 16:30 Bisacodyl (Dulcolax Supp) 10 mg DAILY PRN [place] CONSTIPATION; Start 06/30/16 at 16 :30 Pantoprazole (Protonix Iv) 40 mg DAILY@06 IV Last administered on 07/15/16 05: 41; Admin Dose 40 MG; Start 07/01/16 at 06:00 Metoclopramide HCl 10 mg 10 mg Q6 IV Last administered on 07/15/16 05:41; Admin Dose 10 MG; Start 07/03/16 at 18:00 Erythromycin Lactobionate/ Sodium Chloride (Erythromycin Lactobionate/NS) 100 ml @ 100 mls/hr Q6 IVPB Last administered on 07/15/16 05:41; Admin Dose 100 MLS/HR; Start 07/09/16 at 00:00 Methylprednisolone Sodium Succinate 40 mg 40 mg Q6 IV Last administered on 07/15 05:41; Admin Dose 40 MG; Start 07/12/16 at 13:30 Propofol 100 ml @ 2.1 mls/hr Q12H IV Last administered on 07/15/16 03:00; Admin Dose 14.7 MLS/HR; Start 07/12/16 at 21:00 Norepinephrine 16 mg/Dextrose 500 ml @ 1.87 mls/hr TITRATE IV Last administered on 07/13/16 13:43; Admin Dose 18.75 MLS/HR; Start 07/13/16 at 08: 00 Meropenem 100 ml @ 200 mls/hr Q12 IVPB Last administered on 07/14/16 20:50; Admin Dose 200 MLS/HR; Start 07/13/16 at 21:00 Fluconazole/ Sodium Chloride 50 ml @ 50 mls/hr Q24H IVPB Last administered on 12:07; Admin Dose 50 MLS/HR; Start 07/14/16 at 11:00 Vancomycin HCl (Vancocin) 250 ml @ 125 mls/hr Q48H IVPB ; Start 07/15/16 at 12: 00; Status Future Hold Albuterol (Ventolin Hfa) 2 puff Q4H PRN INH SHORTNESS OF BREATH Last administered on 07/15/16 00:55; Admin Dose 2 PUFF; Start 07/14/16 at 22:00 Ipratropium [place] (Atrovent Hfa) 4 puff Q4H PRN INH SHORTNESS OF BREATH Last administered on 07/15/16 00:55; Admin Dose 4 PUFF; Start 07/14/16 at 22:00 TODARBY MD July 15, 2016 09:07
[2016-07-15] MEDS: MEROPENEM 500 MG/100 ML (PMX) 100 ML IVPB SCH ×2 (09:53→22:07)
--- NOTE | 2016-07-15 10:21 | CONS ---
Date/Time of Note Date/Time of Note DATE: 07/15/16 TIME: 10:20 Assessment/Plan Assessment/Plan Additional Assessment/Plan 1. Acute fluid overload with anasarca. 2. Acute kidney injury secondary to acute tubular necrosis from septic shock and also contributing vancomycin. 3. Metabolic acidosis secondary to acute renal failure. 4. 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 5. Septic shock secondary to aspiration pneumonia and gastric outlet obstruction, status post duodenal stent placement. PLAN: started on HD yesterday for fluid overloda, had a first HD yesterday -1 L removed Plan for HD today with ultrafiltration- try CPAP trial after HD today will plan for HD tomorrow also and then give him a break will continue to follow up hepatitis panel and HIV is ordered for tomorrow Am labs Consultation Date/Type/Reason Admit Date/Time Jun 30, 2016 at 15:42 Initial Consult Date 07/14/16 Type of Consultation: NEPHROLOGY Reason for Consultation acute renal failure with fluid overload Referring Provider: GAMALIEL HAIR MD 24 HR Interval Summary Free Text/Dictation s/p HD yesterday, stable respiration today, pt more alert today , plan for CPAP today Exam/Review of Systems Vital Signs Vitals Vital Signs Date Time Temp Pulse Resp B/P Pulse Ox O2 Delivery O2 Flow Rate FiO2 07/15/16 09:12 91 07/15/16 06:30 28 118/79 96 Mechanical Ventilator 07/15/16 05:58 35 07/15/16 04:00 98.8 07/12/16 10:30 3.0 Intake and Output 07/14/16 07/14/16 07/15/16 15:00 23:00 07:00 Intake Total 1367.6 ml 2267.6 ml 732.9 ml Output Total 105 ml 1950 ml 400 ml Balance 1262.6 ml 317.6 ml 332.9 ml Exam GENERAL: Patient is awake, intubated on ventilator, currently ____ . EG-tube in place, site is clear. No erythema, no discharge. NECK: Supple, no JVD, no lymphadenopathy, mid jugular venous distention up to the mid neck. LUNGS: Decreased breath sounds, bilateral coarse breath sounds present with bibasilar crackles up to the mid lung zone. HEART: S1, S2, with regular rhythm, tachycardia. No murmur. ABDOMEN: Soft, nontender, nondistended, tender to palpation diffusely all over. No rebound, no guarding. EXTREMITIES: 2 to 3+ pitting edema all the way up to the thigh and also has sacral edema. NEUROLOGICAL: Uncooperative for exam at this point since he is currently intubated. SKIN: No rash. Results Result Diagram: 07/15/16 0430 07/15/16 0430 Results 24 hrs Laboratory Tests Test 07/15/16 04:30 07/15/16 05:19 07/15/16 07:00 White Blood Count 19.9 H Red Blood Count 2.93 L Hemoglobin 9.3 #L Hematocrit 27.0 L Mean Corpuscular Volume 92.2 Mean Corpuscular Hemoglobin 31.7 Mean Corpuscular Hemoglobin Concent 34.4 Red Cell Distribution Width 18.7 H Platelet Count 164 Mean Platelet Volume 10.7 H Neutrophils % 99.0 H Lymphocytes % 1.0 L Eosinophils % Neutrophils # 19.7 H Lymphocytes # 0.2 L Eosinophils # Anisocytosis 1+ Sodium Level 139 Potassium Level 4.4 Chloride Level 108 Carbon Dioxide Level 18 L Anion Gap 17 H Blood Urea Nitrogen 47 H Creatinine 2.67 H Glucose Level 133 Calcium Level 7.5 L Magnesium Level 2.1 Random Vancomycin Level 18.7 Lab Scanned Report BLOOD TRANSFUSION Blood Gas Specimen Source Blood arterial Arterial Blood Date Drawn 07/15/2016 7:20:00 AM Arterial Blood pH (Temp corrected) 7.445 Arterial Blood pCO2 (Temp correct) 24.5 L Arterial Blood pO2 (Temp corrected) 71.8 L Arterial Blood HCO3 16.5 L Arterial Blood Base Excess -6.2 L Arterial Blood Oxygen Saturation 94.0 L Og Test ACCEPTAB Arterial Blood Gas Puncture Site Left Radial Arterial Blood Carboxyhemoglobin 0.1 Arterial Blood Methemoglobin 0.1 Blood Gas A-a O2 Differential 149.3 H Oxyhemoglobin Percent 93.8 Total Hemoglobin 10.5 L Blood Gas Temperature 37.0 Blood Gas Respiration Rate 16.0 Blood Gas Actual Respiration Rate 21 Blood Gas Modality VENT - AC FiO2 35.0 Blood Gas Tidal Volume 600.0 Blood Gas Low PEEP Setting 5.0 Blood Gas Notified Whom [facility] Blood Gas Notified Time 07/15/2016 8:43:00 AM Medications Medications Current Medications Potassium Chloride/Sodium Chloride (NS-KCl 20 Meq) 1,000 ml @ 100 mls/hr Q10H IV Last administered on 07/15/16 05:42; Admin Dose 100 MLS/HR; Start 06/30/16 at 16:18 Ondansetron HCl (Zofran Inj) 4 mg Q6H PRN IV NAUSEA AND/OR VOMITING Last administered on 07/12/16 03:27; Admin Dose 4 MG; Start 06/30/16 at 16:30 Acetaminophen (Tylenol Tab) 650 mg Q6H PRN PO PAIN LEVEL 1-3 OR FEVER Last administered on 07/05/16 19:31; Admin Dose 650 MG; Start 06/30/16 at 16:30 Acetaminophen (Tylenol Supp) 650 mg Q6H PRN [place] PAIN LEVEL 1-3 OR FEVER; Start 06/30/16 at 16:30 Acetaminophen/ Hydrocodone Bitart ([place] (5/325)) 1 tab Q6H PRN PO MODERATE PAIN LEVEL 4-6 Last administered on 07/10/16 22:33; Admin Dose 1 TAB; Start at 16:30 Acetaminophen/ Hydrocodone Bitart ([place] (5/325)) 2 tab Q6H PRN PO SEVERE PAIN LEVEL 7-10 Last administered on 07/10/16 13:15; Admin Dose 2 TAB; Start at 16:30 Morphine Sulfate (morphine) 2 mg Q4H PRN IV SEVERE PAIN LEVEL 7-10 Last administered on 07/11/16 21:35; Admin Dose 2 MG; Start 06/30/16 at 16:30 Docusate Sodium (Colace) 100 mg Q12H PRN PO CONSTIPATION; Start 06/30/16 at 16: 30 Magnesium Hydroxide (Milk Of Mag) 30 ml DAILY PRN PO CONSTIPATION; Start at 16:30 Bisacodyl (Dulcolax Supp) 10 mg DAILY PRN [place] CONSTIPATION; Start 06/30/16 at 16 :30 Pantoprazole (Protonix Iv) 40 mg DAILY@06 IV Last administered on 07/15/16 05: 41; Admin Dose 40 MG; Start 07/01/16 at 06:00 Metoclopramide HCl 10 mg 10 mg Q6 IV Last administered on 07/15/16 05:41; Admin Dose 10 MG; Start 07/03/16 at 18:00 Erythromycin Lactobionate/ Sodium Chloride (Erythromycin Lactobionate/NS) 100 ml @ 100 mls/hr Q6 IVPB Last administered on 07/15/16 05:41; Admin Dose 100 MLS/HR; Start 07/09/16 at 00:00 Methylprednisolone Sodium Succinate 40 mg 40 mg Q6 IV Last administered on 07/15 05:41; Admin Dose 40 MG; Start 07/12/16 at 13:30 Propofol 100 ml @ 2.1 mls/hr Q12H IV Last administered on 07/15/16 09:47; Admin Dose 14.7 MLS/HR; Start 07/12/16 at 21:00 Norepinephrine 16 mg/Dextrose 500 ml @ 1.87 mls/hr TITRATE IV Last administered on 07/13/16 13:43; Admin Dose 18.75 MLS/HR; Start 07/13/16 at 08: 00 Meropenem 100 ml @ 200 mls/hr Q12 IVPB Last administered on 07/15/16 09:53; Admin Dose 200 MLS/HR; Start 07/13/16 at 21:00 Fluconazole/ Sodium Chloride 50 ml @ 50 mls/hr Q24H IVPB Last administered on 12:07; Admin Dose 50 MLS/HR; Start 07/14/16 at 11:00 Vancomycin HCl (Vancocin) 250 ml @ 125 mls/hr Q48H IVPB ; Start 07/15/16 at 12: 00; Status Future Hold Albuterol (Ventolin Hfa) 2 puff Q4H PRN INH SHORTNESS OF BREATH Last administered on 07/15/16 00:55; Admin Dose 2 PUFF; Start 07/14/16 at 22:00 Ipratropium [place] (Atrovent Hfa) 4 puff Q4H PRN INH SHORTNESS OF BREATH Last administered on 07/15/16 00:55; Admin Dose 4 PUFF; Start 07/14/16 at 22:00 SHANAE LEWIS MD July 15, 2016 10:21
--- NOTE | 2016-07-15 10:45 | RADRPT ---
PROCEDURE: XR Chest. CLINICAL INDICATION: Pneumonia; CHF. TECHNIQUE: Single frontal view of the chest was obtained. COMPARISON: Chest x-ray 07/11/2016 08:46 p.m. FINDINGS: The soft tissues are normal. There are degenerative osteophytes in the thoracic spine. A Port-A-Ca th is projecting over the upper right chest wall with the catheter tip in the proximal right atrium. The heart is enlarged. The cardiomediastinal silhouette and hilar structures are normal. The pulm onary vasculature is equilibrated. There is a left-sided aorta. There are asymmetric pulmonary infi ltrates which have worsened compared to 07/11/2016. There are infiltrates throughout the left lung and in the left perihilar area there are interstitial infiltrates extending toward the periphery of the lung. There are bilateral pleural effusions. An NG tube is positioned distal to the GE junctio n. An endotracheal tube is positioned at T3-4. IMPRESSION: 1. Cardiomegaly with asymmetric pulmonary infiltrates more extensive in the left lung than right wit h bilateral pleural effusions. Congestive heart failure with asymmetric pulmonary edema or CHF assoc iated with a pneumonia in the left lung might present this fashion. 2. Port-A-Cath with the catheter tip in the proximal right atrium. No pneumothorax is identified. 3. Satisfactory positioning of the endotracheal tube and NG tube. 4. Spondylosis of the thoracic spine. RPTAT:AAJJ Physician Sudhir Date Time Electronically viewed and signed by Physician Sudhir on 07/15/2016 10:44 VAMSI/
[2016-07-15 11:01] LABS: ALBUMIN 2.4 g/dl (3.3-4.9)
[2016-07-15 11:04] LABS: BILIRUBIN,DIRECT 3.9 mg/dl (0.00-0.20); BILIRUBIN,INDIRECT 0.7 mg/dl (0-1.1); BILIRUBIN,TOTAL 4.6 mg/dl (0.2-1.3); TOTAL PROTEIN 5.5 g/dl (6.1-8.1)
--- NOTE | 2016-07-15 11:55 | CONS ---
Date/Time of Note Date/Time of Note DATE: 07/15/16 TIME: 11:54 Assessment/Plan Assessment/Plan Additional Assessment/Plan Assessment/Plan Additional Assessment/Plan IMPRESSION: 1. Biliary obstruction. Status post biliary stent, bilirubin is now going up 2. Gram negative bacteremia, either from the urine or from the biliary system. 3. 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 4. 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 Gastric outlet obstruction secondary to tumor growing over the proximal part of the metallic stent in the duodenum. 6. Aspiration pneumonia 7. Renal failure, it is multifactorial 8. UTI with Pseudomonas and Chelsy in the urine, E. coli in the blood Plan Continue NG tube to intermittent suction since the Patient has got gastric outlet obstruction. Biliary obstruction status post plastic biliary stent both external and internal Respiratory failure patient is on vent Continue antibiotic Within the patient off the vent since patient is alert awake and oriented and also his FiO2 has dropped down to almost 40% now When patient is more stable will place another duodenal stent. Patient is not a candidate for surgical bypass We should start chemo as soon as possible when the infection is under control ID consult Nephrology consult for possible dialysis Monitor liver function if bilirubin keeps going up and radiologist needs to evaluate biliary drainage Consultation Date/Type/Reason Admit Date/Time Jun 30, 2016 at 15:42 Initial Consult Date 06/30/16 Type of Consultation: NEPHROLOGY Referring Provider: GAMALIEL HAIR MD 24 HR Interval Summary Subjective hx not possible: pt critical Exam/Review of Systems Vital Signs Vitals Vital Signs Date Time Temp Pulse Resp B/P Pulse Ox O2 Delivery O2 Flow Rate FiO2 07/15/16 11:00 79 24 101/66 96 Mechanical Ventilator 07/15/16 10:18 35 07/15/16 08:00 98.4 07/12/16 10:30 3.0 Intake and Output 07/14/16 07/14/16 07/15/16 15:00 23:00 07:00 Intake Total 1367.6 ml 2267.6 ml 847.6 ml Output Total 105 ml 1950 ml 400 ml Balance 1262.6 ml 317.6 ml 447.6 ml Exam Constitutional: alert, oriented, well developed Respiratory: other (Patient is intubated on vent, FiO2 is 35%) Cardiovascular: nl pulses, regular rate and rhythm Gastrointestinal: nl liver, spleen, non-tender, soft Extremities: pitting pedal edema Results Result Diagram: 07/15/16 0430 07/15/16 0430 Results 24 hrs Laboratory Tests Test 07/15/16 04:30 07/15/16 05:19 07/15/16 07:00 07/15/16 10:20 White Blood Count 19.9 H Red Blood Count 2.93 L Hemoglobin 9.3 #L Hematocrit 27.0 L Mean Corpuscular Volume 92.2 Mean Corpuscular Hemoglobin 31.7 Mean Corpuscular Hemoglobin Concent 34.4 Red Cell Distribution Width 18.7 H Platelet Count 164 Mean Platelet Volume 10.7 H Neutrophils % 99.0 H Lymphocytes % 1.0 L Eosinophils % Neutrophils # 19.7 H Lymphocytes # 0.2 L Eosinophils # Anisocytosis 1+ Sodium Level 139 Potassium Level 4.4 Chloride Level 108 Carbon Dioxide Level 18 L Anion Gap 17 H Blood Urea Nitrogen 47 H Creatinine 2.67 H Glucose Level 133 Calcium Level 7.5 L Magnesium Level 2.1 Random Vancomycin Level 18.7 Lab Scanned Report BLOOD TRANSFUSION Blood Gas Specimen Source Blood arterial Arterial Blood Date Drawn 07/15/2016 7:20:00 AM Arterial Blood pH (Temp corrected) 7.445 Arterial Blood pCO2 (Temp correct) 24.5 L Arterial Blood pO2 (Temp corrected) 71.8 L Arterial Blood HCO3 16.5 L Arterial Blood Base Excess -6.2 L Arterial Blood Oxygen Saturation 94.0 L Og Test ACCEPTAB Arterial Blood Gas Puncture Site Left Radial Arterial Blood Carboxyhemoglobin 0.1 Arterial Blood Methemoglobin 0.1 Blood Gas A-a O2 Differential 149.3 H Oxyhemoglobin Percent 93.8 Total Hemoglobin 10.5 L Blood Gas Temperature 37.0 Blood Gas Respiration Rate 16.0 Blood Gas Actual Respiration Rate 21 Blood Gas Modality VENT - AC FiO2 35.0 Blood Gas Tidal Volume 600.0 Blood Gas Low PEEP Setting 5.0 Blood Gas Notified Whom [facility] Blood Gas Notified Time 07/15/2016 8:43:00 AM Total Bilirubin 4.6 H Direct Bilirubin 3.90 H Indirect Bilirubin 0.7 Aspartate Amino Transf (AST/SGOT) 121 H Alanine Aminotransferase (ALT/SGPT) 77 H Alkaline Phosphatase 147 H Total Protein 5.5 L Albumin 2.4 L Medications Medications Current Medications Potassium Chloride/Sodium Chloride (NS-KCl 20 Meq) 1,000 ml @ 100 mls/hr Q10H IV Last administered on 07/15/16 05:42; Admin Dose 100 MLS/HR; Start 06/30/16 at 16:18 Ondansetron HCl (Zofran Inj) 4 mg Q6H PRN IV NAUSEA AND/OR VOMITING Last administered on 07/12/16 03:27; Admin Dose 4 MG; Start 06/30/16 at 16:30 Acetaminophen (Tylenol Tab) 650 mg Q6H PRN PO PAIN LEVEL 1-3 OR FEVER Last administered on 07/05/16 19:31; Admin Dose 650 MG; Start 06/30/16 at 16:30 Acetaminophen (Tylenol Supp) 650 mg Q6H PRN [place] PAIN LEVEL 1-3 OR FEVER; Start 06/30/16 at 16:30 Acetaminophen/ Hydrocodone Bitart ([place] (5/325)) 1 tab Q6H PRN PO MODERATE PAIN LEVEL 4-6 Last administered on 07/10/16 22:33; Admin Dose 1 TAB; Start at 16:30 Acetaminophen/ Hydrocodone Bitart ([place] (5/325)) 2 tab Q6H PRN PO SEVERE PAIN LEVEL 7-10 Last administered on 07/10/16 13:15; Admin Dose 2 TAB; Start at 16:30 Morphine Sulfate (morphine) 2 mg Q4H PRN IV SEVERE PAIN LEVEL 7-10 Last administered on 07/11/16 21:35; Admin Dose 2 MG; Start 06/30/16 at 16:30 Docusate Sodium (Colace) 100 mg Q12H PRN PO CONSTIPATION; Start 06/30/16 at 16: 30 Magnesium Hydroxide (Milk Of Mag) 30 ml DAILY PRN PO CONSTIPATION; Start at 16:30 Bisacodyl (Dulcolax Supp) 10 mg DAILY PRN [place] CONSTIPATION; Start 06/30/16 at 16 :30 Pantoprazole (Protonix Iv) 40 mg DAILY@06 IV Last administered on 07/15/16 05: 41; Admin Dose 40 MG; Start 07/01/16 at 06:00 Metoclopramide HCl 10 mg 10 mg Q6 IV Last administered on 07/15/16 11:49; Admin Dose 10 MG; Start 07/03/16 at 18:00 Erythromycin Lactobionate/ Sodium Chloride (Erythromycin Lactobionate/NS) 100 ml @ 100 mls/hr Q6 IVPB Last administered on 07/15/16 11:50; Admin Dose 100 MLS/HR; Start 07/09/16 at 00:00 Methylprednisolone Sodium Succinate 40 mg 40 mg Q6 IV Last administered on 07/15 11:49; Admin Dose 40 MG; Start 07/12/16 at 13:30 Propofol 100 ml @ 2.1 mls/hr Q12H IV Last administered on 07/15/16 09:47; Admin Dose 14.7 MLS/HR; Start 07/12/16 at 21:00 Norepinephrine 16 mg/Dextrose 500 ml @ 1.87 mls/hr TITRATE IV Last administered on 07/13/16 13:43; Admin Dose 18.75 MLS/HR; Start 07/13/16 at 08: 00 Meropenem 100 ml @ 200 mls/hr Q12 IVPB Last administered on 07/15/16 09:53; Admin Dose 200 MLS/HR; Start 07/13/16 at 21:00 Fluconazole/ Sodium Chloride 50 ml @ 50 mls/hr Q24H IVPB Last administered on 12:07; Admin Dose 50 MLS/HR; Start 07/14/16 at 11:00 Vancomycin HCl (Vancocin) 250 ml @ 125 mls/hr Q48H IVPB ; Start 07/15/16 at 12: 00; Status Future Hold Albuterol (Ventolin Hfa) 2 puff Q4H PRN INH SHORTNESS OF BREATH Last administered on 07/15/16 00:55; Admin Dose 2 PUFF; Start 07/14/16 at 22:00 Ipratropium [place] (Atrovent Hfa) 4 puff Q4H PRN INH SHORTNESS OF BREATH Last administered on 07/15/16 00:55; Admin Dose 4 PUFF; Start 07/14/16 at 22:00 TIANNA SALINAS MD July 15, 2016 11:55
[2016-07-15] MEDS ORDERED: VANCOMYCIN 1 GM in NS 250 ML IVPB SCH (12:00)
[2016-07-15] MEDS: FLUCONAZOLE 100 MG/NS (PMX) 50 ML IVPB SCH (13:10)
--- NOTE | 2016-07-15 14:08 | CONS ---
Date/Time of Note Date/Time of Note DATE: 07/15/16 TIME: 14:07 Consult Date/Type/Reason Admit Date/Time Jun 30, 2016 at 15:42 Initial Consult Date 07/12/16 Type of Consultation: Pulmonary ICU Ordering Provider: GAMALIEL HAIR MD Subjective Patient awake alert oriented this morning because of good ventilation Hemodynamically stable Objective Vital Signs Date Time Temp Pulse Resp B/P Pulse Ox O2 Delivery O2 Flow Rate FiO2 07/15/16 12:54 73 07/15/16 11:00 24 101/66 96 Mechanical Ventilator 07/15/16 10:18 35 07/15/16 08:00 98.4 07/12/16 10:30 3.0 Intake and Output 07/14/16 07/14/16 07/15/16 15:00 23:00 07:00 Intake Total 1367.6 ml 2267.6 ml 847.6 ml Output Total 105 ml 1950 ml 400 ml Balance 1262.6 ml 317.6 ml 447.6 ml Exam PHYSICAL EXAMINATION GENERAL: Elderly appearing gentleman intubated on mechanical ventilation VITAL SIGNS: see below. HEENT: Pupils equal, round, and reactive to light. CARDIAC: S1, S2, 1/6 systolic ejection murmur CHEST: Diminished air entry bilaterally. ABDOMEN: Mildly distended. Bowel sounds present no guarding or rebound EXTREMITIES: No cyanosis, clubbing edema +1 NEUROLOGIC: Generalized weakness Results/Medications Result Diagram: 07/15/16 0430 07/15/16 0430 Results 24 hrs Laboratory Tests Test 07/15/16 04:30 07/15/16 05:19 07/15/16 07:00 07/15/16 10:20 White Blood Count 19.9 H Red Blood Count 2.93 L Hemoglobin 9.3 #L Hematocrit 27.0 L Mean Corpuscular Volume 92.2 Mean Corpuscular Hemoglobin 31.7 Mean Corpuscular Hemoglobin Concent 34.4 Red Cell Distribution Width 18.7 H Platelet Count 164 Mean Platelet Volume 10.7 H Neutrophils % 99.0 H Lymphocytes % 1.0 L Eosinophils % Neutrophils # 19.7 H Lymphocytes # 0.2 L Eosinophils # Anisocytosis 1+ Sodium Level 139 Potassium Level 4.4 Chloride Level 108 Carbon Dioxide Level 18 L Anion Gap 17 H Blood Urea Nitrogen 47 H Creatinine 2.67 H Glucose Level 133 Calcium Level 7.5 L Magnesium Level 2.1 Random Vancomycin Level 18.7 Lab Scanned Report BLOOD TRANSFUSION Blood Gas Specimen Source Blood arterial Arterial Blood Date Drawn 07/15/2016 7:20:00 AM Arterial Blood pH (Temp corrected) 7.445 Arterial Blood pCO2 (Temp correct) 24.5 L Arterial Blood pO2 (Temp corrected) 71.8 L Arterial Blood HCO3 16.5 L Arterial Blood Base Excess -6.2 L Arterial Blood Oxygen Saturation 94.0 L Og Test ACCEPTAB Arterial Blood Gas Puncture Site Left Radial Arterial Blood Carboxyhemoglobin 0.1 Arterial Blood Methemoglobin 0.1 Blood Gas A-a O2 Differential 149.3 H Oxyhemoglobin Percent 93.8 Total Hemoglobin 10.5 L Blood Gas Temperature 37.0 Blood Gas Respiration Rate 16.0 Blood Gas Actual Respiration Rate 21 Blood Gas Modality VENT - AC FiO2 35.0 Blood Gas Tidal Volume 600.0 Blood Gas Low PEEP Setting 5.0 Blood Gas Notified Whom [facility] Blood Gas Notified Time 07/15/2016 8:43:00 AM Total Bilirubin 4.6 H Direct Bilirubin 3.90 H Indirect Bilirubin 0.7 Aspartate Amino Transf (AST/SGOT) 121 H Alanine Aminotransferase (ALT/SGPT) 77 H Alkaline Phosphatase 147 H Total Protein 5.5 L Albumin 2.4 L Medications Current Medications Potassium Chloride/Sodium Chloride (NS-KCl 20 Meq) 1,000 ml @ 100 mls/hr Q10H IV Last administered on 07/15/16 05:42; Admin Dose 100 MLS/HR; Start 06/30/16 at 16:18 Ondansetron HCl (Zofran Inj) 4 mg Q6H PRN IV NAUSEA AND/OR VOMITING Last administered on 07/12/16 03:27; Admin Dose 4 MG; Start 06/30/16 at 16:30 Acetaminophen (Tylenol Tab) 650 mg Q6H PRN PO PAIN LEVEL 1-3 OR FEVER Last administered on 07/05/16 19:31; Admin Dose 650 MG; Start 06/30/16 at 16:30 Acetaminophen (Tylenol Supp) 650 mg Q6H PRN [place] PAIN LEVEL 1-3 OR FEVER; Start 06/30/16 at 16:30 Acetaminophen/ Hydrocodone Bitart ([place] (5/325)) 1 tab Q6H PRN PO MODERATE PAIN LEVEL 4-6 Last administered on 07/10/16 22:33; Admin Dose 1 TAB; Start at 16:30 Acetaminophen/ Hydrocodone Bitart ([place] (5/325)) 2 tab Q6H PRN PO SEVERE PAIN LEVEL 7-10 Last administered on 07/10/16 13:15; Admin Dose 2 TAB; Start at 16:30 Morphine Sulfate (morphine) 2 mg Q4H PRN IV SEVERE PAIN LEVEL 7-10 Last administered on 07/11/16 21:35; Admin Dose 2 MG; Start 06/30/16 at 16:30 Docusate Sodium (Colace) 100 mg Q12H PRN PO CONSTIPATION; Start 06/30/16 at 16: 30 Magnesium Hydroxide (Milk Of Mag) 30 ml DAILY PRN PO CONSTIPATION; Start at 16:30 Bisacodyl (Dulcolax Supp) 10 mg DAILY PRN [place] CONSTIPATION; Start 06/30/16 at 16 :30 Pantoprazole (Protonix Iv) 40 mg DAILY@06 IV Last administered on 07/15/16 05: 41; Admin Dose 40 MG; Start 07/01/16 at 06:00 Metoclopramide HCl 10 mg 10 mg Q6 IV Last administered on 07/15/16 11:49; Admin Dose 10 MG; Start 07/03/16 at 18:00 Erythromycin Lactobionate/ Sodium Chloride (Erythromycin Lactobionate/NS) 100 ml @ 100 mls/hr Q6 IVPB Last administered on 07/15/16 11:50; Admin Dose 100 MLS/HR; Start 07/09/16 at 00:00 Methylprednisolone Sodium Succinate 40 mg 40 mg Q6 IV Last administered on 07/15 11:49; Admin Dose 40 MG; Start 07/12/16 at 13:30 Propofol 100 ml @ 2.1 mls/hr Q12H IV Last administered on 07/15/16 09:47; Admin Dose 14.7 MLS/HR; Start 07/12/16 at 21:00 Norepinephrine 16 mg/Dextrose 500 ml @ 1.87 mls/hr TITRATE IV Last administered on 07/13/16 13:43; Admin Dose 18.75 MLS/HR; Start 07/13/16 at 08: 00 Meropenem 100 ml @ 200 mls/hr Q12 IVPB Last administered on 07/15/16 09:53; Admin Dose 200 MLS/HR; Start 07/13/16 at 21:00 Fluconazole/ Sodium Chloride 50 ml @ 50 mls/hr Q24H IVPB Last administered on 13:10; Admin Dose 50 MLS/HR; Start 07/14/16 at 11:00 Vancomycin HCl (Vancocin) 250 ml @ 125 mls/hr Q48H IVPB ; Start 07/15/16 at 12: 00; Status Future Hold Albuterol (Ventolin Hfa) 2 puff Q4H PRN INH SHORTNESS OF BREATH Last administered on 07/15/16 00:55; Admin Dose 2 PUFF; Start 07/14/16 at 22:00 Ipratropium [place] (Atrovent Hfa) 4 puff Q4H PRN INH SHORTNESS OF BREATH Last administered on 07/15/16 00:55; Admin Dose 4 PUFF; Start 07/14/16 at 22:00 Assessment/Plan Chief Complaint/Hosp Course Assessment 1. Hypoxemic respiratory failure likely secondary to aspiration pneumonia 2. Septic shock secondary to above 3. Metastatic bladder cancer 4. Renal failure Plan 1. Continue mechanical ventilation, CPAP trial this morning patient failed with increased work of breathing and respiratory distress. Will consider repeating CPAP trial tomorrow 2. Continue broad-spectrum antibiotics 3. Continue GI recommendations 4. Vasopressors as needed 5. Renal recommendations with hemodialysis as needed Disposition Continue ICU care Problems: BELLE CABAN MD[facility] July 15, 2016 14:08
--- NOTE | 2016-07-15 14:21 | PN ---
DATE: 07/15/2016 SUBJECTIVE: No events overnight. The patient is off pressors, failed weaning trials, remains intub ated, in no distress. No fevers. VITAL SIGNS: Temperature 98.4, pulse 79, respirations 24, blood pressure 101/66, saturation 96% on 35% FIO2. LABORATORY DATA: WBC 19.9, H and H 9.3 and 27, platelets 164, neutrophils 99. BUN 47, creatinine 2 .67. INDWELLINGS: Endotracheal tube, NG tube, right-sided abdominal drainage catheter, Kale catheter, right subclavian Port-A-Cath. ANTIMICROBIALS: 1. Fluconazole. 2. Meropenem. 3. Vancomycin. 4. Erythromycin. DIAGNOSTICS: Chest x-ray this morning revealed cardiomegaly with bilateral infiltrates and effusion . PHYSICAL EXAMINATION: GENERAL: Well-developed elderly man who is intubated, in no distress. HEENT: Head atraumatic, normocephalic. Sclerae anicteric. Buccal mucosa dry. NECK: Supple. CHEST: Rise symmetrical. Breath sounds diminished to bases. HEART: S1, S2. ABDOMEN: Soft. Bowel sounds hypoactive. EXTREMITIES: No cyanosis. ASSESSMENT: 1. Sepsis, status post shock. 2. Acute respiratory failure secondary to aspiration pneumonia. 3. Status post Escherichia coli bacteremia. 4. Biliary obstruction status post attempted unsuccessful ERCP on 07/03/2016, status post PTC on , EGD on 07/13/2016 showed obstructing tumor growing over the stent. 5. Urinary tract infection with culture grew Chelsy albicans and Pseudomonas. 6. Acute renal failure. 7. Diabetic gastroparesis. 8. Metastatic urothelial cancer. PLAN: The patient remains unchanged, covered with broad-spectrum antibiotics. [facility] He is on steroids. Continue weaning trials as per pulmonary. Dictated By: MARIELA ROBIN COMMISSARY MANAGER for PENNY JOSEPH MD NI/NTS Conf#: [id number] DID#: [id number]
--- NOTE | 2016-07-15 14:46 | PN ---
Date/Time of Note Date/Time of Note DATE: 07/15/16 TIME: 14:46 Assessment/Plan Lines/Catheters IV Catheter Type (from [facility]): deja Langley in Place (from [facility]): Yes Assessment/Plan Chief Complaint/Hosp Course 1. Sepsis 2nd biliary obstruction s/p attempted unsuccessful ERCP 07/03. s/p PTC 07/05. s/p EGD showing tumor growing over stent and causing obstruction 07/12. Aspiration pneumonia s/p intubation 07/12. -abx -ivf -supportive care -Drain -Vent management and pulmonary toilette -Chemo [place] after infection controlled 2. Transaminitis with Hyperbilirubinemia ? 2nd biliary obstruction ? 2nd tumor s /p PTC 07/05 -as above 3. Metastatic Urothelial cancer with ? carcinomatosis -heme/onc for tx after sepsis resolution 4. Hx obstructed duodenum with gastric outlet obstruction s/p duodenal stent. Now with hiccups and difficulty eating. s/p EGD showing tumor growing over stent and causing obstruction 07/12 -Chemo [place] if possible 5. Steatosis -Eventual nutrition and lifestyle optimization 6. Weight loss probably secondary to above -As above Thank you, Problems: Subjective 24 Hr Interval Summary Remains intubated 2nd aspiration pna 07/12. s/p EGD 07/12 > tumor growing over stent and causing obstruction. s/p PTC 07/05. No f/c. No abdominal pain. No chest pain. No cough. No seizure. No headache, visual, or neurologic changes. No dysuria. Exam/Review of Systems Vital Signs Vitals Vital Signs Date Time Temp Pulse Resp B/P Pulse Ox O2 Delivery O2 Flow Rate FiO2 07/15/16 12:54 73 07/15/16 11:00 24 101/66 96 Mechanical Ventilator 07/15/16 10:18 35 07/15/16 08:00 98.4 07/12/16 10:30 3.0 Intake and Output 07/14/16 07/14/16 07/15/16 15:00 23:00 07:00 Intake Total 1367.6 ml 2267.6 ml 847.6 ml Output Total 105 ml 1950 ml 400 ml Balance 1262.6 ml 317.6 ml 447.6 ml Exam Free Text/Dictation Constitutional: Intubated Psych: Ventilated Head: atraumatic, normocephalic Eyes: EOMI, PERRL, nl conjunctiva, icterus ENMT: mucosa pink and moist, nl external ears & nose, nl lips & teeth Neck: non-tender, supple, No jvd, No masses Respiratory: normal air movement, No congested cough, No labored breathing Cardiovascular: regular rate and rhythm, No edema Gastrointestinal: NT, soft, No distended, No rebound or guarding Genitourinary - Male: nl scrotum Musculoskeletal: nl extremities to inspection, nl gait and stance, No joint tenderness Extremities: normal pulses, No calf tenderness, No cyanosis Neurological: nl mental status, nl speech, nl strength Skin: nl turgor, jaundice. No diaphoresis, No rash or lesions Lymph: No nl lymph nodes (Inguinal) Results Result Diagram: 07/15/1642907/15/16429 DIAMOND FITZGERALD MD July 15, 2016 14:46
--- NOTE | 2016-07-15 14:46 | PN ---
Date/Time of Note Date/Time of Note DATE: 07/14/16 TIME: 14:44 Assessment/Plan Lines/Catheters IV Catheter Type (from [facility]): deja Langley in Place (from [facility]): Yes Assessment/Plan Chief Complaint/Hosp Course 1. Sepsis 2nd biliary obstruction s/p attempted unsuccessful ERCP 07/03. s/p PTC 07/05. s/p EGD showing tumor growing over stent and causing obstruction 07/12. Aspiration pneumonia s/p intubation 07/12. -abx -ivf -supportive care -Drain -Vent management and pulmonary toilette -Chemo [place] after infection controlled 2. Transaminitis with Hyperbilirubinemia ? 2nd biliary obstruction ? 2nd tumor s /p PTC 07/05 -as above 3. Metastatic Urothelial cancer with ? carcinomatosis -heme/onc for tx after sepsis resolution 4. Hx obstructed duodenum with gastric outlet obstruction s/p duodenal stent. Now with hiccups and difficulty eating. s/p EGD showing tumor growing over stent and causing obstruction 07/12 -Chemo [place] if possible 5. Steatosis -Eventual nutrition and lifestyle optimization 6. Weight loss probably secondary to above -As above Thank you, Late entry 07/14 Problems: Subjective 24 Hr Interval Summary Remains intubated 2nd aspiration pna 07/12. s/p EGD 07/12 > tumor growing over stent and causing obstruction. s/p PTC 07/05. No f/c. No abdominal pain. No chest pain. No cough. No seizure. No headache, visual, or neurologic changes. No dysuria. Exam/Review of Systems Vital Signs Vitals Vital Signs Date Time Temp Pulse Resp B/P Pulse Ox O2 Delivery O2 Flow Rate FiO2 07/15/16 12:54 73 07/15/16 11:00 24 101/66 96 Mechanical Ventilator 07/15/16 10:18 35 07/15/16 08:00 98.4 07/12/16 10:30 3.0 Intake and Output 07/14/16 07/14/16 07/15/16 15:00 23:00 07:00 Intake Total 1367.6 ml 2267.6 ml 847.6 ml Output Total 105 ml 1950 ml 400 ml Balance 1262.6 ml 317.6 ml 447.6 ml Exam Free Text/Dictation Constitutional: Intubated Psych: Ventilated Head: atraumatic, normocephalic Eyes: EOMI, PERRL, nl conjunctiva, icterus ENMT: mucosa pink and moist, nl external ears & nose, nl lips & teeth Neck: non-tender, supple, No jvd, No masses Respiratory: normal air movement, No congested cough, No labored breathing Cardiovascular: regular rate and rhythm, No edema Gastrointestinal: NT, soft, No distended, No rebound or guarding Genitourinary - Male: nl scrotum Musculoskeletal: nl extremities to inspection, nl gait and stance, No joint tenderness Extremities: normal pulses, No calf tenderness, No cyanosis Neurological: nl mental status, nl speech, nl strength Skin: nl turgor, jaundice. No diaphoresis, No rash or lesions Lymph: No nl lymph nodes (Inguinal) Results Result Diagram: 07/15/1642907/15/16429 DIAMOND FITZGERALD MD July 15, 2016 14:45
--- NOTE | 2016-07-15 15:46 | PN ---
Date/Time of Note Date/Time of Note DATE: 07/15/16 TIME: 15:45 Assessment/Plan VTE Prophylaxis VTE Prophylaxis Intervention: SCD's Lines/Catheters IV Catheter Type (from Nrs): deja Assessment/Plan Chief Complaint/Hosp Course 1. Septic Shock 2/2 Aspiration PNA -cont Vanco and Zosyn 2. Transaminitis with Hyperbilirubinemia 2nd biliary obstruction from metastatic cancer -as above 3. Metastatic Urothelial cancer with possible carcinomatosis -heme/onc to start chemotherapy 4. Hx obstructed duodenum with gastric outlet obstruction s/p duodenal stent Repeat duodenal stent placed today 5. Steatosis -Eventual nutrition and lifestyle optimization 6. Acute Respiratory Failure secondary to aspiration pneumonia cont vent management Continue Vanco and Zosyn Pulmonology consultation appreciated 7. CHARITY with fluid OD -Nephro consult appreciated, receiving ultrafiltration Prophylaxis: SCDs Problems: Subjective 24 Hr Interval Summary Subjective hx not possible: pt non-verbal Exam/Review of Systems Vital Signs Vitals Vital Signs Date Time Temp Pulse Resp B/P Pulse Ox O2 Delivery O2 Flow Rate FiO2 07/15/16 12:54 73 07/15/16 11:00 24 101/66 96 Mechanical Ventilator 07/15/16 10:18 35 07/15/16 08:00 98.4 07/12/16 10:30 3.0 Intake and Output 07/14/16 07/14/16 07/15/16 15:00 23:00 07:00 Intake Total 1367.6 ml 2267.6 ml 847.6 ml Output Total 105 ml 1950 ml 400 ml Balance 1262.6 ml 317.6 ml 447.6 ml Exam Constitutional: non-verbal Respiratory: clear to auscultation Cardiovascular: regular rate and rhythm Gastrointestinal: soft, No distended Musculoskeletal: nl extremities to inspection Results Result Diagram: 07/15/16 0430 07/15/16 0430 Results 24 hrs Laboratory Tests Test 07/15/16 04:30 07/15/16 05:19 07/15/16 07:00 07/15/16 10:20 White Blood Count 19.9 H Red Blood Count 2.93 L Hemoglobin 9.3 #L Hematocrit 27.0 L Mean Corpuscular Volume 92.2 Mean Corpuscular Hemoglobin 31.7 Mean Corpuscular Hemoglobin Concent 34.4 Red Cell Distribution Width 18.7 H Platelet Count 164 Mean Platelet Volume 10.7 H Neutrophils % 99.0 H Lymphocytes % 1.0 L Eosinophils % Neutrophils # 19.7 H Lymphocytes # 0.2 L Eosinophils # Anisocytosis 1+ Sodium Level 139 Potassium Level 4.4 Chloride Level 108 Carbon Dioxide Level 18 L Anion Gap 17 H Blood Urea Nitrogen 47 H Creatinine 2.67 H Glucose Level 133 Calcium Level 7.5 L Magnesium Level 2.1 Random Vancomycin Level 18.7 Lab Scanned Report BLOOD TRANSFUSION Blood Gas Specimen Source Blood arterial Arterial Blood Date Drawn 07/15/2016 7:20:00 AM Arterial Blood pH (Temp corrected) 7.445 Arterial Blood pCO2 (Temp correct) 24.5 L Arterial Blood pO2 (Temp corrected) 71.8 L Arterial Blood HCO3 16.5 L Arterial Blood Base Excess -6.2 L Arterial Blood Oxygen Saturation 94.0 L Og Test ACCEPTAB Arterial Blood Gas Puncture Site Left Radial Arterial Blood Carboxyhemoglobin 0.1 Arterial Blood Methemoglobin 0.1 Blood Gas A-a O2 Differential 149.3 H Oxyhemoglobin Percent 93.8 Total Hemoglobin 10.5 L Blood Gas Temperature 37.0 Blood Gas Respiration Rate 16.0 Blood Gas Actual Respiration Rate 21 Blood Gas Modality VENT - AC FiO2 35.0 Blood Gas Tidal Volume 600.0 Blood Gas Low PEEP Setting 5.0 Blood Gas Notified Whom [facility] Blood Gas Notified Time 07/15/2016 8:43:00 AM Total Bilirubin 4.6 H Direct Bilirubin 3.90 H Indirect Bilirubin 0.7 Aspartate Amino Transf (AST/SGOT) 121 H Alanine Aminotransferase (ALT/SGPT) 77 H Alkaline Phosphatase 147 H Total Protein 5.5 L Albumin 2.4 L Medications Medications Current Medications Potassium Chloride/Sodium Chloride (NS-KCl 20 Meq) 1,000 ml @ 100 mls/hr Q10H IV Last administered on 07/15/16 05:42; Admin Dose 100 MLS/HR; Start 06/30/16 at 16:18 Ondansetron HCl (Zofran Inj) 4 mg Q6H PRN IV NAUSEA AND/OR VOMITING Last administered on 07/12/16 03:27; Admin Dose 4 MG; Start 06/30/16 at 16:30 Acetaminophen (Tylenol Tab) 650 mg Q6H PRN PO PAIN LEVEL 1-3 OR FEVER Last administered on 07/05/16 19:31; Admin Dose 650 MG; Start 06/30/16 at 16:30 Acetaminophen (Tylenol Supp) 650 mg Q6H PRN [place] PAIN LEVEL 1-3 OR FEVER; Start 06/30/16 at 16:30 Acetaminophen/ Hydrocodone Bitart ([place] (5/325)) 1 tab Q6H PRN PO MODERATE PAIN LEVEL 4-6 Last administered on 07/10/16 22:33; Admin Dose 1 TAB; Start at 16:30 Acetaminophen/ Hydrocodone Bitart ([place] (5/325)) 2 tab Q6H PRN PO SEVERE PAIN LEVEL 7-10 Last administered on 07/10/16 13:15; Admin Dose 2 TAB; Start at 16:30 Morphine Sulfate (morphine) 2 mg Q4H PRN IV SEVERE PAIN LEVEL 7-10 Last administered on 07/11/16 21:35; Admin Dose 2 MG; Start 06/30/16 at 16:30 Docusate Sodium (Colace) 100 mg Q12H PRN PO CONSTIPATION; Start 06/30/16 at 16: 30 Magnesium Hydroxide (Milk Of Mag) 30 ml DAILY PRN PO CONSTIPATION; Start at 16:30 Bisacodyl (Dulcolax Supp) 10 mg DAILY PRN [place] CONSTIPATION; Start 06/30/16 at 16 :30 Pantoprazole (Protonix Iv) 40 mg DAILY@06 IV Last administered on 07/15/16 05: 41; Admin Dose 40 MG; Start 07/01/16 at 06:00 Metoclopramide HCl 10 mg 10 mg Q6 IV Last administered on 07/15/16 11:49; Admin Dose 10 MG; Start 07/03/16 at 18:00 Erythromycin Lactobionate/ Sodium Chloride (Erythromycin Lactobionate/NS) 100 ml @ 100 mls/hr Q6 IVPB Last administered on 07/15/16 11:50; Admin Dose 100 MLS/HR; Start 07/09/16 at 00:00 Methylprednisolone Sodium Succinate 40 mg 40 mg Q6 IV Last administered on 07/15 11:49; Admin Dose 40 MG; Start 07/12/16 at 13:30 Propofol 100 ml @ 2.1 mls/hr Q12H IV Last administered on 07/15/16 09:47; Admin Dose 14.7 MLS/HR; Start 07/12/16 at 21:00 Norepinephrine 16 mg/Dextrose 500 ml @ 1.87 mls/hr TITRATE IV Last administered on 07/13/16 13:43; Admin Dose 18.75 MLS/HR; Start 07/13/16 at 08: 00 Meropenem 100 ml @ 200 mls/hr Q12 IVPB Last administered on 07/15/16 09:53; Admin Dose 200 MLS/HR; Start 07/13/16 at 21:00 Fluconazole/ Sodium Chloride 50 ml @ 50 mls/hr Q24H IVPB Last administered on 13:10; Admin Dose 50 MLS/HR; Start 07/14/16 at 11:00 Vancomycin HCl (Vancocin) 250 ml @ 125 mls/hr Q48H IVPB ; Start 07/15/16 at 12: 00; Status Future Hold Albuterol (Ventolin Hfa) 2 puff Q4H PRN INH SHORTNESS OF BREATH Last administered on 07/15/16 00:55; Admin Dose 2 PUFF; Start 07/14/16 at 22:00 Ipratropium [place] (Atrovent Hfa) 4 puff Q4H PRN INH SHORTNESS OF BREATH Last administered on 07/15/16 00:55; Admin Dose 4 PUFF; Start 07/14/16 at 22:00 ERNESTINA CANTU July 15, 2016 15:46
[2016-07-15] MEDS: morphine 2 MG INJ IV PRN (19:56)
[2016-07-16] VITALS (51 sets, daily range): BP systolic 88–113; BP diastolic 64–87; PULSE 66–81; RESP 17–35
[2016-07-16] MEDS: METOCLOPRAMIDE 10 MG INJ IV SCH ×5 (01:13→23:15)
[2016-07-16] MEDS: METHYLPREDNISOLONE 40 MG INJ IV SCH ×5 (01:13→23:15)
[2016-07-16] MEDS: ERYTHROMYCIN LACTOBIONATE 250 MG in SOD CHLORIDE 0.9% 100 ML IVPB SCH ×5 (01:14→23:21)
[2016-07-16] MEDS: NS + KCL 20 MEQ 1,000 ML IV SCH ×2 (02:27→12:00)
[2016-07-16] MEDS: PROPOFOL 100 ML IV SCH ×3 (03:40→19:13)
[2016-07-16 04:26] LABS: ADD SCAN DIFF NO; HAAIG REFLEX REFLEX FILED
[2016-07-16 04:31] LABS: ABNORMAL IP MESSAGE 1; BASOPHILS % 0.1 % (0.0-2.0); HEMATOCRIT 31.1 % (42.0-52.0); HEMOGLOBIN 10.9 g/dl (14.0-18.0); LYMPHOCYTES # 0.4 10^3/ul (0.8-2.9); LYMPHOCYTES % 3.1 % (15.0-51.0); MEAN CORPUSCULAR HEMOGLOBIN 31.2 pg (29.0-33.0); MEAN CORPUSCULAR VOLUME 89.1 fl (82.0-101.0); MEAN PLATELET VOLUME 10.6 fl (7.4-10.4); MONOCYTE # 0.2 10^3/ul (0.3-0.9); MONOCYTES % 1.6 % (0.0-11.0); NEUTROPHIL # 12.6 10^3/ul (1.6-7.5); NUCLEATED RED BLOOD CELLS # 0.1 10^3/ul (0.0-0.0); NUCLEATED RED BLOOD CELLS% 0.6 /100WBC (0.0-0.0); PLATELET COUNT 136 10^3/UL (140-415); RED BLOOD COUNT 3.49 10^6/ul (4.70-6.10); RED CELL DISTRIBUTION WIDTH 18.5 % (11.5-14.5); WHITE BLOOD COUNT 13.5 10^3/ul (4.8-10.8)
[2016-07-16 04:48] LABS: NEUTROPHILS % 93.9 % (39.0-77.0)
[2016-07-16 04:59] LABS: PHOSPHORUS 4.5 mg/dl (2.5-4.9)
[2016-07-16 05:00] LABS: CALCIUM 7.6 mg/dl (8.4-10.2)
[2016-07-16 05:07] LABS: CREATININE 2.8 mg/dl (0.61-1.24)
[2016-07-16] MEDS: PANTOPRAZOLE 40 MG INJ IV SCH (06:00)
[2016-07-16 06:52] LABS: HEPATITIS B CORE ANTIBODY NEGATIVE (NEGATIVE)
[2016-07-16] MEDS ORDERED: VANCOMYCIN 1 GM in NS 250 ML IVPB SCH (09:00)
[2016-07-16] MEDS: MEROPENEM 500 MG/100 ML (PMX) 100 ML IVPB SCH ×2 (10:01→21:05)
--- NOTE | 2016-07-16 11:00 | CONS ---
Date/Time of Note Date/Time of Note DATE: 07/16/16 TIME: 10:57 Assessment/Plan Assessment/Plan Additional Assessment/Plan 1. Acute fluid overload with anasarca. 2. Acute kidney injury secondary to acute tubular necrosis from septic shock and also contributing vancomycin. 3. Metabolic acidosis secondary to acute renal failure. 4. 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 5. Septic shock secondary to aspiration pneumonia and gastric outlet obstruction, status post duodenal stent placement. PLAN: started on HD yesterday for fluid overload during this admission, s/p HD x 2 days in row, pt remains intubated, plan for HD today pt received total 2 units PRBC with HD in last two days will continue to follow up weanign plan as per pulmonary Consultation Date/Type/Reason Admit Date/Time Jun 30, 2016 at 15:42 Initial Consult Date 07/14/16 Type of Consultation: NEPHROLOGY Referring Provider: GAMALIEL HAIR MD 24 HR Interval Summary Free Text/Dictation stable, s/p HD yesterday, pt remains intubated, plan for HD today Exam/Review of Systems Vital Signs Vitals Vital Signs Date Time Temp Pulse Resp B/P Pulse Ox O2 Delivery O2 Flow Rate FiO2 07/16/16 09:53 80 22 07/16/16 09:00 88/69 95 Mechanical Ventilator 07/16/16 08:00 97.7 07/16/16 08:00 30 07/12/16 10:30 3.0 Intake and Output 07/15/16 07/15/16 07/16/16 15:00 23:00 07:00 Intake Total 1155.0 ml 921.8 ml 800.8 ml Output Total 40 ml 25 ml 105 ml Balance 1115.0 ml 896.8 ml 695.8 ml Exam Constitutional: non-verbal Respiratory: clear to auscultation Cardiovascular: regular rate and rhythm Gastrointestinal: soft, No distended Musculoskeletal: nl extremities to inspection Results Result Diagram: 07/16/160 07/16/16 0400 Results 24 hrs Laboratory Tests Test 07/16/16 04:00 07/16/16 05:17 White Blood Count 13.5 #H Red Blood Count 3.49 L Hemoglobin 10.9 L Hematocrit 31.1 L Mean Corpuscular Volume 89.1 Mean Corpuscular Hemoglobin 31.2 Mean Corpuscular Hemoglobin Concent 35.0 Red Cell Distribution Width 18.5 H Platelet Count 136 L Mean Platelet Volume 10.6 H Neutrophils % 93.9 H Lymphocytes % 3.1 L Monocytes % 1.6 Eosinophils % 0.0 Basophils % 0.1 Nucleated Red Blood Cells % 0.6 H Neutrophils # 12.6 H Lymphocytes # 0.4 L Monocytes # 0.2 L Eosinophils # 0.0 Basophils # 0.0 Nucleated Red Blood Cells # 0.1 H Sodium Level 138 Potassium Level 4.0 Chloride Level 107 Carbon Dioxide Level 19 L Anion Gap 16 Blood Urea Nitrogen 52 H Creatinine 2.80 H Glucose Level 146 Calcium Level 7.6 L Phosphorus Level 4.5 Magnesium Level 2.0 Hepatitis B Surface Antigen NEGATIVE Hepatitis B Core Total Antibody NEGATIVE Hepatitis C Antibody NEGATIVE HIV (1&2) Antibody NEGATIVE Lab Scanned Report BLOOD TRANSFUSION Medications Medications Current Medications Potassium Chloride/Sodium Chloride (NS-KCl 20 Meq) 1,000 ml @ 100 mls/hr Q10H IV Last administered on 07/15/16 20:57; Admin Dose 100 MLS/HR; Start 06/30/16 at 16:18 Ondansetron HCl (Zofran Inj) 4 mg Q6H PRN IV NAUSEA AND/OR VOMITING Last administered on 07/12/16 03:27; Admin Dose 4 MG; Start 06/30/16 at 16:30 Acetaminophen (Tylenol Tab) 650 mg Q6H PRN PO PAIN LEVEL 1-3 OR FEVER Last administered on 07/05/16 19:31; Admin Dose 650 MG; Start 06/30/16 at 16:30 Acetaminophen (Tylenol Supp) 650 mg Q6H PRN [place] PAIN LEVEL 1-3 OR FEVER; Start 06/30/16 at 16:30 Acetaminophen/ Hydrocodone Bitart ([place] (5/325)) 1 tab Q6H PRN PO MODERATE PAIN LEVEL 4-6 Last administered on 07/10/16 22:33; Admin Dose 1 TAB; Start at 16:30 Acetaminophen/ Hydrocodone Bitart ([place] (5/325)) 2 tab Q6H PRN PO SEVERE PAIN LEVEL 7-10 Last administered on 07/10/16 13:15; Admin Dose 2 TAB; Start at 16:30 Morphine Sulfate (morphine) 2 mg Q4H PRN IV SEVERE PAIN LEVEL 7-10 Last administered on 07/15/16 19:56; Admin Dose 2 MG; Start 06/30/16 at 16:30 Docusate Sodium (Colace) 100 mg Q12H PRN PO CONSTIPATION; Start 06/30/16 at 16: 30 Magnesium Hydroxide (Milk Of Mag) 30 ml DAILY PRN PO CONSTIPATION; Start at 16:30 Bisacodyl (Dulcolax Supp) 10 mg DAILY PRN [place] CONSTIPATION; Start 06/30/16 at 16 :30 Pantoprazole (Protonix Iv) 40 mg DAILY@06 IV Last administered on 07/16/16 06: 00; Admin Dose 40 MG; Start 07/01/16 at 06:00 Metoclopramide HCl 10 mg 10 mg Q6 IV Last administered on 07/16/16 06:00; Admin Dose 10 MG; Start 07/03/16 at 18:00 Erythromycin Lactobionate/ Sodium Chloride (Erythromycin Lactobionate/NS) 100 ml @ 100 mls/hr Q6 IVPB Last administered on 07/16/16 06:00; Admin Dose 100 MLS/HR; Start 07/09/16 at 00:00 Methylprednisolone Sodium Succinate 40 mg 40 mg Q6 IV Last administered on 07/16 06:00; Admin Dose 40 MG; Start 07/12/16 at 13:30 Propofol 100 ml @ 2.1 mls/hr Q12H IV Last administered on 07/16/16 03:40; Admin Dose 16.8 MLS/HR; Start 07/12/16 at 21:00 Norepinephrine 16 mg/Dextrose 500 ml @ 1.87 mls/hr TITRATE IV Last administered on 07/13/16 13:43; Admin Dose 18.75 MLS/HR; Start 07/13/16 at 08: 00 Meropenem 100 ml @ 200 mls/hr Q12 IVPB Last administered on 07/16/16 10:01; Admin Dose 200 MLS/HR; Start 07/13/16 at 21:00 Fluconazole/ Sodium Chloride (Diflucan 100 Mg/ NS (Pmx)) 50 ml @ 50 mls/hr Q24H IVPB Last administered on 07/15/16 13:10; Admin Dose 50 MLS/HR; Start 5/11/ 17 at 11:00 Albuterol (Ventolin Hfa) 2 puff Q4H PRN INH SHORTNESS OF BREATH Last administered on 07/15/16 00:55; Admin Dose 2 PUFF; Start 07/14/16 at 22:00 Ipratropium [place] 4 puff 4 puff Q4H PRN INH SHORTNESS OF BREATH Last administered on 07/15/16 00:55; Admin Dose 4 PUFF; Start 07/14/16 at 22:00 Vancomycin HCl (Vancocin) 250 ml @ 125 mls/hr ONCE IVPB Last administered on 10:00; Admin Dose 125 MLS/HR; Start 07/16/16 at 09:00; Stop 07/16/16 at 12:00 SHANAE LEWIS MD July 16, 2016 11:00
--- NOTE | 2016-07-16 11:26 | RADRPT ---
PROCEDURE: XR Chest. CLINICAL INDICATION: Pneumonia, CHF TECHNIQUE: Single frontal chest x-ray. COMPARISON: 07/15/2016 FINDINGS: Endotracheal tube, nasogastric tube, and right-sided Port-A-Cath remain in place. Left mid/upper joey ng consolidation is grossly unchanged. No pneumothorax is identified. Cardiomediastinal silhouette is stable in appearance. The osseous structures are remarkable for degenerative spondylosis of the spine. IMPRESSION: 1. Left mid/upper lung consolidation is grossly unchanged. 2. Lines and tubes remain in place. 3. No gross interval change. RPTAT: QQ .Roosevelt Solis MD, MD Date Time Electronically viewed and signed by .Roosevelt Solis MD, MD on 07/16/2016 11:25 .R/
[2016-07-16] MEDS: FLUCONAZOLE 100 MG/NS (PMX) 50 ML IVPB SCH (11:59)
--- NOTE | 2016-07-16 12:00 | CONS ---
Date/Time of Note Date/Time of Note DATE: 07/16/16 TIME: 11:56 Assessment/Plan Assessment/Plan Chief Complaint/Hosp Course 60 year old male with metastatic urothelial cancer who had presented during the last admission with gastric outlet obstruction status post duodenal stent . Has since been diagnosed with metastatic urothelial cancer Patient now readmitted with sepsis with abdominal pain. He is currently in critical condition, intubated in the ICU # metastatic urothelial cancer - CT A/P demonstrates infiltrative neoplasm involving the cecum, ascending colon and hepatic flexure with extension of tumor to the serosa involving the lateral wall of the duodenum. This has advanced as compared to 05/27/2016. - I had planned to start gemcitabine 1000 mg/m2 D1, 8 and carboplatin AUC 4.5 D1 however wanted to hold off for now until adequately treated with at least 14 days of antibiotics for bacteremia. If patient remained stable, I had planned to give chemo at the end of this week, however patient now with worsening of left lung pneumonia concerning for aspiration during EGD, tachycardic, hypotensive, intubated, on sedation, one pressor, broad spectrum antibiotics. Given rapidly growing tumor, would want to start chemo ISSA when patient more stable. - discussed with Dr. De, duodenal stent obstructed by tumor, status post new internal biliary catheter 07/11/16 - Dr. Nolan to arrange for POLST form to be filled out - acute drop in Hemogloin noted yesterday, s/p 1 unit pRBCs now Hgb 9.3, no evidence of bleeding, iron panel Fe 21, TIBC 148 (low), %14, ferritin 601 consistent with anemia of chronic inflammation, Vitamin B12/folate WNL, retic count inappropriately low; LDH elevated at 948, will check haptoglobin, LFTs to eval for hemolysis but lower suspicion. Will request peripheral smear review given metamyelocytes noted on differential. - Hg has improved after blood transfusion and is now > 10 # E. coli bacteremia - with sepsis secondary to biliary obstruction s/p attempted unsuccessful ERCP 07/03, s/p external percutaneous biliary drainage 07/05 - Last blood cultures were clear from 07/05/16 - will hold on removing the port for now. If ID feels it is necessary to remove and if bacteremia does not clear, will remove at that time # Renal failure, nephrology consult, plan for UF today. # Biliary obstruction - per GI, patient Bili is stable. - s/p percutaneous biliary drain given rise in bilirubin. T bili now down to 1.6 - status post new biliary catheter 07/11/16 - status post EGD that demonstrated gastric outlet obstruction with tumor growing over stent and almost complete obstructing lumen, may need gastrojejunostomy vs. another stent per GI # Diabetic Gastroparesis - cont reglan; erythromycin added as prokinetic agent per GI # CHARITY - Acute kidney injury secondary to acute tubular necrosis from septic shock and also contributing vancomycin - cont HD per renal Problems: Consultation Date/Type/Reason Admit Date/Time Jun 30, 2016 at 15:42 Initial Consult Date 06/30/16 Type of Consultation: Hematology Reason for Consultation metastatic urothelial cancer Referring Provider: GAMALIEL HAIR MD 24 HR Interval Summary Free Text/Dictation pt remains intubated and unable to be weaned off vent. pt has started HD. s/p blood transfusion yesterday Exam/Review of Systems Vital Signs Vitals Vital Signs Date Time Temp Pulse Resp B/P Pulse Ox O2 Delivery O2 Flow Rate FiO2 07/16/16 09:53 80 22 07/16/16 09:00 88/69 95 Mechanical Ventilator 07/16/16 08:00 97.7 07/16/16 08:00 30 07/12/16 10:30 3.0 Intake and Output 07/15/16 07/15/16 07/16/16 15:00 23:00 07:00 Intake Total 1155.0 ml 1421.8 ml 800.8 ml Output Total 40 ml 2025 ml 105 ml Balance 1115.0 ml -603.2 ml 695.8 ml Exam Constitutional: non-verbal ENMT: intubated Neck: non-tender, supple Respiratory: crackles/rales, diminished breath sounds Gastrointestinal: soft Musculoskeletal: nl extremities to inspection, nl gait and stance Results Result Diagram: 07/16/1639907/16/160 Results 24 hrs Laboratory Tests Test 07/16/16 04:00 07/16/16 05:17 White Blood Count 13.5 #H Red Blood Count 3.49 L Hemoglobin 10.9 L Hematocrit 31.1 L Mean Corpuscular Volume 89.1 Mean Corpuscular Hemoglobin 31.2 Mean Corpuscular Hemoglobin Concent 35.0 Red Cell Distribution Width 18.5 H Platelet Count 136 L Mean Platelet Volume 10.6 H Neutrophils % 93.9 H Lymphocytes % 3.1 L Monocytes % 1.6 Eosinophils % 0.0 Basophils % 0.1 Nucleated Red Blood Cells % 0.6 H Neutrophils # 12.6 H Lymphocytes # 0.4 L Monocytes # 0.2 L Eosinophils # 0.0 Basophils # 0.0 Nucleated Red Blood Cells # 0.1 H Sodium Level 138 Potassium Level 4.0 Chloride Level 107 Carbon Dioxide Level 19 L Anion Gap 16 Blood Urea Nitrogen 52 H Creatinine 2.80 H Glucose Level 146 Calcium Level 7.6 L Phosphorus Level 4.5 Magnesium Level 2.0 Hepatitis B Surface Antigen NEGATIVE Hepatitis B Core Total Antibody NEGATIVE Hepatitis C Antibody NEGATIVE HIV (1&2) Antibody NEGATIVE Lab Scanned Report BLOOD TRANSFUSION Medications Medications Current Medications Potassium Chloride/Sodium Chloride (NS-KCl 20 Meq) 1,000 ml @ 100 mls/hr Q10H IV Last administered on 07/15/16 20:57; Admin Dose 100 MLS/HR; Start 06/30/16 at 16:18 Ondansetron HCl (Zofran Inj) 4 mg Q6H PRN IV NAUSEA AND/OR VOMITING Last administered on 07/12/16 03:27; Admin Dose 4 MG; Start 06/30/16 at 16:30 Acetaminophen (Tylenol Tab) 650 mg Q6H PRN PO PAIN LEVEL 1-3 OR FEVER Last administered on 07/05/16 19:31; Admin Dose 650 MG; Start 06/30/16 at 16:30 Acetaminophen (Tylenol Supp) 650 mg Q6H PRN [place] PAIN LEVEL 1-3 OR FEVER; Start 06/30/16 at 16:30 Acetaminophen/ Hydrocodone Bitart ([place] (5/325)) 1 tab Q6H PRN PO MODERATE PAIN LEVEL 4-6 Last administered on 07/10/16 22:33; Admin Dose 1 TAB; Start at 16:30 Acetaminophen/ Hydrocodone Bitart ([place] (5/325)) 2 tab Q6H PRN PO SEVERE PAIN LEVEL 7-10 Last administered on 07/10/16 13:15; Admin Dose 2 TAB; Start at 16:30 Morphine Sulfate (morphine) 2 mg Q4H PRN IV SEVERE PAIN LEVEL 7-10 Last administered on 07/15/16 19:56; Admin Dose 2 MG; Start 06/30/16 at 16:30 Docusate Sodium (Colace) 100 mg Q12H PRN PO CONSTIPATION; Start 06/30/16 at 16: 30 Magnesium Hydroxide (Milk Of Mag) 30 ml DAILY PRN PO CONSTIPATION; Start at 16:30 Bisacodyl (Dulcolax Supp) 10 mg DAILY PRN [place] CONSTIPATION; Start 06/30/16 at 16 :30 Pantoprazole (Protonix Iv) 40 mg DAILY@06 IV Last administered on 07/16/16 06: 00; Admin Dose 40 MG; Start 07/01/16 at 06:00 Metoclopramide HCl 10 mg 10 mg Q6 IV Last administered on 07/16/16 06:00; Admin Dose 10 MG; Start 07/03/16 at 18:00 Erythromycin Lactobionate/ Sodium Chloride (Erythromycin Lactobionate/NS) 100 ml @ 100 mls/hr Q6 IVPB Last administered on 07/16/16 06:00; Admin Dose 100 MLS/HR; Start 07/09/16 at 00:00 Methylprednisolone Sodium Succinate 40 mg 40 mg Q6 IV Last administered on 07/16 06:00; Admin Dose 40 MG; Start 07/12/16 at 13:30 Propofol 100 ml @ 2.1 mls/hr Q12H IV Last administered on 07/16/16 03:40; Admin Dose 16.8 MLS/HR; Start 07/12/16 at 21:00 Norepinephrine 16 mg/Dextrose 500 ml @ 1.87 mls/hr TITRATE IV Last administered on 07/13/16 13:43; Admin Dose 18.75 MLS/HR; Start 07/13/16 at 08: 00 Meropenem 100 ml @ 200 mls/hr Q12 IVPB Last administered on 07/16/16 10:01; Admin Dose 200 MLS/HR; Start 07/13/16 at 21:00 Fluconazole/ Sodium Chloride (Diflucan 100 Mg/ NS (Pmx)) 50 ml @ 50 mls/hr Q24H IVPB Last administered on 07/15/16 13:10; Admin Dose 50 MLS/HR; Start at 11:00 Albuterol (Ventolin Hfa) 2 puff Q4H PRN INH SHORTNESS OF BREATH Last administered on 07/15/16 00:55; Admin Dose 2 PUFF; Start 07/14/16 at 22:00 Ipratropium [place] 4 puff 4 puff Q4H PRN INH SHORTNESS OF BREATH Last administered on 07/15/16 00:55; Admin Dose 4 PUFF; Start 07/14/16 at 22:00 Vancomycin HCl (Vancocin) 250 ml @ 125 mls/hr ONCE IVPB Last administered on 10:00; Admin Dose 125 MLS/HR; Start 07/16/16 at 09:00; Stop 07/16/16 at 12:00 LETY HUNTER M.D. July 16, 2016 12:00
--- NOTE | 2016-07-16 13:53 | CONS ---
Date/Time of Note Date/Time of Note DATE: 07/16/16 TIME: 13:51 Assessment/Plan Assessment/Plan Additional Assessment/Plan Additional Assessment/Plan IMPRESSION: 1. Biliary obstruction. Status post biliary stent, bilirubin is now going up 2. Gram negative bacteremia, either from the urine or from the biliary system. 3. 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 4. 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 Gastric outlet obstruction secondary to tumor growing over the proximal part of the metallic stent in the duodenum. 6. Aspiration pneumonia 7. Renal failure, it is multifactorial 8. UTI with Pseudomonas and Chelsy in the urine, E. coli in the blood Plan Continue NG tube to intermittent suction since the Patient has got gastric outlet obstruction. Biliary obstruction status post plastic biliary stent both external and internal Respiratory failure patient is on vent Continue antibiotic Within the patient off the vent since patient is alert awake and oriented and also his FiO2 has dropped down to almost 35% now When patient is more stable will place another duodenal stent. Patient is not a candidate for surgical bypass We should start chemo as soon as possible when the infection is under control ID consult Nephrology consult for possible dialysis Monitor liver function if bilirubin keeps going up and radiologist needs to evaluate biliary drainage Consultation Date/Type/Reason Admit Date/Time Jun 30, 2016 at 15:42 Initial Consult Date 06/30/16 Type of Consultation: Hematology Referring Provider: GAMALIEL HAIR MD 24 HR Interval Summary Subjective hx not possible: pt critical Exam/Review of Systems Vital Signs Vitals Vital Signs Date Time Temp Pulse Resp B/P Pulse Ox O2 Delivery O2 Flow Rate FiO2 07/16/16 12:00 98.0 71 22 103/73 98 Mechanical Ventilator 07/16/16 08:00 30 07/12/16 10:30 3.0 Intake and Output 07/15/16 07/15/16 07/16/16 15:00 23:00 07:00 Intake Total 1155.0 ml 1421.8 ml 800.8 ml Output Total 40 ml 2025 ml 105 ml Balance 1115.0 ml -603.2 ml 695.8 ml Exam Constitutional: alert, oriented, well developed Eyes: nl conjunctiva Neck: non-tender, supple Respiratory: other (Patient on vent) Cardiovascular: nl pulses, regular rate and rhythm Extremities: normal pulses Neurological: LEGAL RECORDS MANAGER II-XII intact, nl mental status, nl speech, nl strength Results Result Diagram: 07/16/16 0400 07/16/16 0400 Results 24 hrs Laboratory Tests Test 07/16/16 04:00 07/16/16 05:17 White Blood Count 13.5 #H Red Blood Count 3.49 L Hemoglobin 10.9 L Hematocrit 31.1 L Mean Corpuscular Volume 89.1 Mean Corpuscular Hemoglobin 31.2 Mean Corpuscular Hemoglobin Concent 35.0 Red Cell Distribution Width 18.5 H Platelet Count 136 L Mean Platelet Volume 10.6 H Neutrophils % 93.9 H Lymphocytes % 3.1 L Monocytes % 1.6 Eosinophils % 0.0 Basophils % 0.1 Nucleated Red Blood Cells % 0.6 H Neutrophils # 12.6 H Lymphocytes # 0.4 L Monocytes # 0.2 L Eosinophils # 0.0 Basophils # 0.0 Nucleated Red Blood Cells # 0.1 H Sodium Level 138 Potassium Level 4.0 Chloride Level 107 Carbon Dioxide Level 19 L Anion Gap 16 Blood Urea Nitrogen 52 H Creatinine 2.80 H Glucose Level 146 Calcium Level 7.6 L Phosphorus Level 4.5 Magnesium Level 2.0 Hepatitis B Surface Antigen NEGATIVE Hepatitis B Core Total Antibody NEGATIVE Hepatitis C Antibody NEGATIVE HIV (1&2) Antibody NEGATIVE Lab Scanned Report BLOOD TRANSFUSION Medications Medications Current Medications Potassium Chloride/Sodium Chloride (NS-KCl 20 Meq) 1,000 ml @ 100 mls/hr Q10H IV Last administered on 07/16/16 12:00; Admin Dose 100 MLS/HR; Start 06/30/16 at 16:18 Ondansetron HCl (Zofran Inj) 4 mg Q6H PRN IV NAUSEA AND/OR VOMITING Last administered on 07/12/16 03:27; Admin Dose 4 MG; Start 06/30/16 at 16:30 Acetaminophen (Tylenol Tab) 650 mg Q6H PRN PO PAIN LEVEL 1-3 OR FEVER Last administered on 07/05/16 19:31; Admin Dose 650 MG; Start 06/30/16 at 16:30 Acetaminophen (Tylenol Supp) 650 mg Q6H PRN [place] PAIN LEVEL 1-3 OR FEVER; Start 06/30/16 at 16:30 Acetaminophen/ Hydrocodone Bitart ([place] (5/325)) 1 tab Q6H PRN PO MODERATE PAIN LEVEL 4-6 Last administered on 07/10/16 22:33; Admin Dose 1 TAB; Start at 16:30 Acetaminophen/ Hydrocodone Bitart ([place] (5/325)) 2 tab Q6H PRN PO SEVERE PAIN LEVEL 7-10 Last administered on 07/10/16 13:15; Admin Dose 2 TAB; Start at 16:30 Morphine Sulfate (morphine) 2 mg Q4H PRN IV SEVERE PAIN LEVEL 7-10 Last administered on 07/15/16 19:56; Admin Dose 2 MG; Start 06/30/16 at 16:30 Docusate Sodium (Colace) 100 mg Q12H PRN PO CONSTIPATION; Start 06/30/16 at 16: 30 Magnesium Hydroxide (Milk Of Mag) 30 ml DAILY PRN PO CONSTIPATION; Start at 16:30 Bisacodyl (Dulcolax Supp) 10 mg DAILY PRN [place] CONSTIPATION; Start 06/30/16 at 16 :30 Pantoprazole (Protonix Iv) 40 mg DAILY@06 IV Last administered on 07/16/16 06: 00; Admin Dose 40 MG; Start 07/01/16 at 06:00 Metoclopramide HCl 10 mg 10 mg Q6 IV Last administered on 07/16/16 12:00; Admin Dose 10 MG; Start 07/03/16 at 18:00 Erythromycin Lactobionate/ Sodium Chloride (Erythromycin Lactobionate/NS) 100 ml @ 100 mls/hr Q6 IVPB Last administered on 07/16/16 12:00; Admin Dose 100 MLS/HR; Start 07/09/16 at 00:00 Methylprednisolone Sodium Succinate 40 mg 40 mg Q6 IV Last administered on 07/16 12:00; Admin Dose 40 MG; Start 07/12/16 at 13:30 Propofol 100 ml @ 2.1 mls/hr Q12H IV Last administered on 07/16/16 03:40; Admin Dose 16.8 MLS/HR; Start 07/12/16 at 21:00 Norepinephrine 16 mg/Dextrose 500 ml @ 1.87 mls/hr TITRATE IV Last administered on 07/13/16 13:43; Admin Dose 18.75 MLS/HR; Start 07/13/16 at 08: 00 Meropenem 100 ml @ 200 mls/hr Q12 IVPB Last administered on 07/16/16 10:01; Admin Dose 200 MLS/HR; Start 07/13/16 at 21:00 Fluconazole/ Sodium Chloride (Diflucan 100 Mg/ NS (Pmx)) 50 ml @ 50 mls/hr Q24H IVPB Last administered on 07/16/16 11:59; Admin Dose 50 MLS/HR; Start at 11:00 Albuterol (Ventolin Hfa) 2 puff Q4H PRN INH SHORTNESS OF BREATH Last administered on 07/15/16 00:55; Admin Dose 2 PUFF; Start 07/14/16 at 22:00 Ipratropium [place] (Atrovent Hfa) 4 puff Q4H PRN INH SHORTNESS OF BREATH Last administered on 07/15/16 00:55; Admin Dose 4 PUFF; Start 07/14/16 at 22:00 TIANNA SALINAS MD July 16, 2016 13:52
--- NOTE | 2016-07-16 13:58 | CONS ---
Date/Time of Note Date/Time of Note DATE: 07/16/16 TIME: 13:54 Consult Date/Type/Reason Admit Date/Time Jun 30, 2016 at 15:42 Initial Consult Date 07/12/16 Type of Consultation: Pulm/CCM Ordering Provider: GAMALIEL HAIR MD Subjective Awake and alert on vent. Objective Vital Signs Date Time Temp Pulse Resp B/P Pulse Ox O2 Delivery O2 Flow Rate FiO2 07/16/16 12:00 98.0 71 22 103/73 98 Mechanical Ventilator 07/16/16 08:00 30 07/12/16 10:30 3.0 Intake and Output 07/15/16 07/15/16 07/16/16 15:00 23:00 07:00 Intake Total 1155.0 ml 1421.8 ml 800.8 ml Output Total 40 ml 2025 ml 105 ml Balance 1115.0 ml -603.2 ml 695.8 ml Exam HEENT: Pupils equal, round, and reactive to light. CARDIAC: S1, S2, 1/6 systolic ejection murmur CHEST: Left course BS ABDOMEN: Mildly distended. Bowel sounds present no guarding or rebound EXTREMITIES: No cyanosis, clubbing edema +1 Results/Medications Result Diagram: 07/16/16 0400 07/16/16 0400 Results 24 hrs Laboratory Tests Test 07/16/16 04:00 07/16/16 05:17 White Blood Count 13.5 #H Red Blood Count 3.49 L Hemoglobin 10.9 L Hematocrit 31.1 L Mean Corpuscular Volume 89.1 Mean Corpuscular Hemoglobin 31.2 Mean Corpuscular Hemoglobin Concent 35.0 Red Cell Distribution Width 18.5 H Platelet Count 136 L Mean Platelet Volume 10.6 H Neutrophils % 93.9 H Lymphocytes % 3.1 L Monocytes % 1.6 Eosinophils % 0.0 Basophils % 0.1 Nucleated Red Blood Cells % 0.6 H Neutrophils # 12.6 H Lymphocytes # 0.4 L Monocytes # 0.2 L Eosinophils # 0.0 Basophils # 0.0 Nucleated Red Blood Cells # 0.1 H Sodium Level 138 Potassium Level 4.0 Chloride Level 107 Carbon Dioxide Level 19 L Anion Gap 16 Blood Urea Nitrogen 52 H Creatinine 2.80 H Glucose Level 146 Calcium Level 7.6 L Phosphorus Level 4.5 Magnesium Level 2.0 Hepatitis B Surface Antigen NEGATIVE Hepatitis B Core Total Antibody NEGATIVE Hepatitis C Antibody NEGATIVE HIV (1&2) Antibody NEGATIVE Lab Scanned Report BLOOD TRANSFUSION Medications Current Medications Potassium Chloride/Sodium Chloride (NS-KCl 20 Meq) 1,000 ml @ 100 mls/hr Q10H IV Last administered on 07/16/16 12:00; Admin Dose 100 MLS/HR; Start 06/30/16 at 16:18 Ondansetron HCl (Zofran Inj) 4 mg Q6H PRN IV NAUSEA AND/OR VOMITING Last administered on 07/12/16 03:27; Admin Dose 4 MG; Start 06/30/16 at 16:30 Acetaminophen (Tylenol Tab) 650 mg Q6H PRN PO PAIN LEVEL 1-3 OR FEVER Last administered on 07/05/16 19:31; Admin Dose 650 MG; Start 06/30/16 at 16:30 Acetaminophen (Tylenol Supp) 650 mg Q6H PRN [place] PAIN LEVEL 1-3 OR FEVER; Start 06/30/16 at 16:30 Acetaminophen/ Hydrocodone Bitart ([place] (5/325)) 1 tab Q6H PRN PO MODERATE PAIN LEVEL 4-6 Last administered on 07/10/16 22:33; Admin Dose 1 TAB; Start at 16:30 Acetaminophen/ Hydrocodone Bitart ([place] (5/325)) 2 tab Q6H PRN PO SEVERE PAIN LEVEL 7-10 Last administered on 07/10/16 13:15; Admin Dose 2 TAB; Start at 16:30 Morphine Sulfate (morphine) 2 mg Q4H PRN IV SEVERE PAIN LEVEL 7-10 Last administered on 07/15/16 19:56; Admin Dose 2 MG; Start 06/30/16 at 16:30 Docusate Sodium (Colace) 100 mg Q12H PRN PO CONSTIPATION; Start 06/30/16 at 16: 30 Magnesium Hydroxide (Milk Of Mag) 30 ml DAILY PRN PO CONSTIPATION; Start at 16:30 Bisacodyl (Dulcolax Supp) 10 mg DAILY PRN [place] CONSTIPATION; Start 06/30/16 at 16 :30 Pantoprazole (Protonix Iv) 40 mg DAILY@06 IV Last administered on 07/16/16 06: 00; Admin Dose 40 MG; Start 07/01/16 at 06:00 Metoclopramide HCl 10 mg 10 mg Q6 IV Last administered on 07/16/16 12:00; Admin Dose 10 MG; Start 07/03/16 at 18:00 Erythromycin Lactobionate/ Sodium Chloride (Erythromycin Lactobionate/NS) 100 ml @ 100 mls/hr Q6 IVPB Last administered on 07/16/16 12:00; Admin Dose 100 MLS/HR; Start 07/09/16 at 00:00 Methylprednisolone Sodium Succinate 40 mg 40 mg Q6 IV Last administered on 07/16 12:00; Admin Dose 40 MG; Start 07/12/16 at 13:30 Propofol 100 ml @ 2.1 mls/hr Q12H IV Last administered on 07/16/16 03:40; Admin Dose 16.8 MLS/HR; Start 07/12/16 at 21:00 Norepinephrine 16 mg/Dextrose 500 ml @ 1.87 mls/hr TITRATE IV Last administered on 07/13/16 13:43; Admin Dose 18.75 MLS/HR; Start 07/13/16 at 08: 00 Meropenem 100 ml @ 200 mls/hr Q12 IVPB Last administered on 07/16/16 10:01; Admin Dose 200 MLS/HR; Start 07/13/16 at 21:00 Fluconazole/ Sodium Chloride (Diflucan 100 Mg/ NS (Pmx)) 50 ml @ 50 mls/hr Q24H IVPB Last administered on 07/16/16 11:59; Admin Dose 50 MLS/HR; Start at 11:00 Albuterol (Ventolin Hfa) 2 puff Q4H PRN INH SHORTNESS OF BREATH Last administered on 07/15/16 00:55; Admin Dose 2 PUFF; Start 07/14/16 at 22:00 Ipratropium [place] (Atrovent Hfa) 4 puff Q4H PRN INH SHORTNESS OF BREATH Last administered on 07/15/16 00:55; Admin Dose 4 PUFF; Start 07/14/16 at 22:00 Assessment/Plan Additional Assessment/Plan IMP: 1. Hypoxemic respiratory failure likely secondary to aspiration pneumonia and failure to wean due to NM weakness 2. Septic shock- improved 3. Metastatic bladder cancer 4. Renal failure Plan 1. Gradual SIMV wean; to lower PS by 2 cm H20 q 4 hours as tolerated 2. BD's 3. HD per renal 4. Am labs/CXR 35 min cc time PARDEEP CORRAL MD July 16, 2016 13:58
--- NOTE | 2016-07-16 14:03 | PN ---
Date/Time of Note Date/Time of Note DATE: 07/16/16 TIME: 14:01 Assessment/Plan VTE Prophylaxis VTE Prophylaxis Intervention: SCD's Lines/Catheters IV Catheter Type (from Nrs): JORDY Assessment/Plan Chief Complaint/Hosp Course 1. Septic Shock 2/2 Aspiration PNA -cont Vanco and Zosyn 2. Transaminitis with Hyperbilirubinemia 2nd biliary obstruction from metastatic cancer -as above 3. Metastatic Urothelial cancer with possible carcinomatosis -heme/onc to start chemotherapy 4. Hx obstructed duodenum with gastric outlet obstruction s/p duodenal stent Repeat duodenal stent placed today 5. Steatosis -Eventual nutrition and lifestyle optimization 6. Acute Respiratory Failure secondary to aspiration pneumonia cont vent management, weaning trials Continue Vanco and Zosyn Pulmonology consultation appreciated 7. CHARITY with fluid OD -Nephro consult appreciated, receiving HD Prophylaxis: SCDs Problems: Subjective 24 Hr Interval Summary Subjective hx not possible: pt non-verbal Exam/Review of Systems Vital Signs Vitals Vital Signs Date Time Temp Pulse Resp B/P Pulse Ox O2 Delivery O2 Flow Rate FiO2 07/16/16 12:00 98.0 71 22 103/73 98 Mechanical Ventilator 07/16/16 08:00 30 07/12/16 10:30 3.0 Intake and Output 07/15/16 07/15/16 07/16/16 15:00 23:00 07:00 Intake Total 1155.0 ml 1421.8 ml 800.8 ml Output Total 40 ml 2025 ml 105 ml Balance 1115.0 ml -603.2 ml 695.8 ml Exam Constitutional: non-verbal ENMT: intubated Respiratory: clear to auscultation Cardiovascular: regular rate and rhythm Gastrointestinal: soft, No distended Musculoskeletal: nl extremities to inspection Results Result Diagram: 07/16/16 0400 07/16/16 0400 Results 24 hrs Laboratory Tests Test 07/16/16 04:00 07/16/16 05:17 White Blood Count 13.5 #H Red Blood Count 3.49 L Hemoglobin 10.9 L Hematocrit 31.1 L Mean Corpuscular Volume 89.1 Mean Corpuscular Hemoglobin 31.2 Mean Corpuscular Hemoglobin Concent 35.0 Red Cell Distribution Width 18.5 H Platelet Count 136 L Mean Platelet Volume 10.6 H Neutrophils % 93.9 H Lymphocytes % 3.1 L Monocytes % 1.6 Eosinophils % 0.0 Basophils % 0.1 Nucleated Red Blood Cells % 0.6 H Neutrophils # 12.6 H Lymphocytes # 0.4 L Monocytes # 0.2 L Eosinophils # 0.0 Basophils # 0.0 Nucleated Red Blood Cells # 0.1 H Sodium Level 138 Potassium Level 4.0 Chloride Level 107 Carbon Dioxide Level 19 L Anion Gap 16 Blood Urea Nitrogen 52 H Creatinine 2.80 H Glucose Level 146 Calcium Level 7.6 L Phosphorus Level 4.5 Magnesium Level 2.0 Hepatitis B Surface Antigen NEGATIVE Hepatitis B Core Total Antibody NEGATIVE Hepatitis C Antibody NEGATIVE HIV (1&2) Antibody NEGATIVE Lab Scanned Report BLOOD TRANSFUSION Medications Medications Current Medications Potassium Chloride/Sodium Chloride (NS-KCl 20 Meq) 1,000 ml @ 100 mls/hr Q10H IV Last administered on 07/16/16 12:00; Admin Dose 100 MLS/HR; Start 06/30/16 at 16:18 Ondansetron HCl (Zofran Inj) 4 mg Q6H PRN IV NAUSEA AND/OR VOMITING Last administered on 07/12/16 03:27; Admin Dose 4 MG; Start 06/30/16 at 16:30 Acetaminophen (Tylenol Tab) 650 mg Q6H PRN PO PAIN LEVEL 1-3 OR FEVER Last administered on 07/05/16 19:31; Admin Dose 650 MG; Start 06/30/16 at 16:30 Acetaminophen (Tylenol Supp) 650 mg Q6H PRN [place] PAIN LEVEL 1-3 OR FEVER; Start 06/30/16 at 16:30 Acetaminophen/ Hydrocodone Bitart ([place] (5/325)) 1 tab Q6H PRN PO MODERATE PAIN LEVEL 4-6 Last administered on 07/10/16 22:33; Admin Dose 1 TAB; Start at 16:30 Acetaminophen/ Hydrocodone Bitart ([place] (5/325)) 2 tab Q6H PRN PO SEVERE PAIN LEVEL 7-10 Last administered on 07/10/16 13:15; Admin Dose 2 TAB; Start at 16:30 Morphine Sulfate (morphine) 2 mg Q4H PRN IV SEVERE PAIN LEVEL 7-10 Last administered on 07/15/16 19:56; Admin Dose 2 MG; Start 06/30/16 at 16:30 Docusate Sodium (Colace) 100 mg Q12H PRN PO CONSTIPATION; Start 06/30/16 at 16: 30 Magnesium Hydroxide (Milk Of Mag) 30 ml DAILY PRN PO CONSTIPATION; Start at 16:30 Bisacodyl (Dulcolax Supp) 10 mg DAILY PRN [place] CONSTIPATION; Start 06/30/16 at 16 :30 Pantoprazole (Protonix Iv) 40 mg DAILY@06 IV Last administered on 07/16/16 06: 00; Admin Dose 40 MG; Start 07/01/16 at 06:00 Metoclopramide HCl 10 mg 10 mg Q6 IV Last administered on 07/16/16 12:00; Admin Dose 10 MG; Start 07/03/16 at 18:00 Erythromycin Lactobionate/ Sodium Chloride (Erythromycin Lactobionate/NS) 100 ml @ 100 mls/hr Q6 IVPB Last administered on 07/16/16 12:00; Admin Dose 100 MLS/HR; Start 07/09/16 at 00:00 Methylprednisolone Sodium Succinate 40 mg 40 mg Q6 IV Last administered on 07/16 12:00; Admin Dose 40 MG; Start 07/12/16 at 13:30 Propofol 100 ml @ 2.1 mls/hr Q12H IV Last administered on 07/16/16 03:40; Admin Dose 16.8 MLS/HR; Start 07/12/16 at 21:00 Norepinephrine 16 mg/Dextrose 500 ml @ 1.87 mls/hr TITRATE IV Last administered on 07/13/16 13:43; Admin Dose 18.75 MLS/HR; Start 07/13/16 at 08: 00 Meropenem 100 ml @ 200 mls/hr Q12 IVPB Last administered on 07/16/16 10:01; Admin Dose 200 MLS/HR; Start 07/13/16 at 21:00 Fluconazole/ Sodium Chloride (Diflucan 100 Mg/ NS (Pmx)) 50 ml @ 50 mls/hr Q24H IVPB Last administered on 07/16/16 11:59; Admin Dose 50 MLS/HR; Start at 11:00 Albuterol (Ventolin Hfa) 2 puff Q4H PRN INH SHORTNESS OF BREATH Last administered on 07/15/16 00:55; Admin Dose 2 PUFF; Start 07/14/16 at 22:00 Ipratropium [place] (Atrovent Hfa) 4 puff Q4H PRN INH SHORTNESS OF BREATH Last administered on 07/15/16t 00:55; Admin Dose 4 PUFF; Start 07/14/16 at 22:00 ERNESTINA CANTU July 16, 2016 14:02
[2016-07-16] MEDS: morphine 2 MG INJ IV PRN (17:55)
--- NOTE | 2016-07-16 18:24 | PN ---
DATE: 07/16/2016 SUBJECTIVE: No acute changes. The patient is awake on SIMV, looks comfortable. Denies pain, no fe vers. WBC 13.5, H and H 10.9 and 31.1, platelets 136, neutrophils 93.9, BUN 52, creatinine 2.80. DIAGNOSTICS: Chest x-ray today revealed left mid and upper lobe consolidation grossly unchanged. INDWELLINGS: Endotracheal tube, NG tube, right upper chest Port-A-Cath, intra-abdominal drainage ca theter, [place] and [place]. ANTIMICROBIALS: The patient is on: 1. Fluconazole. 2. IV Vancomycin. 3. IV erythromycin. 4. Meropenem. PHYSICAL EXAMINATION: GENERAL: Well-developed, fragile, elderly man who is awake, in no distress. HEENT: Head atraumatic, normocephalic. Sclerae anicteric. Buccal mucosa dry. NECK: Supple, trachea midline. CHEST: Rise symmetrical. Breath sounds clear. HEART: S1, S2. ABDOMEN: Soft, bowel tones present. EXTREMITIES: Without cyanosis. ASSESSMENT: 1. Severe sepsis with shock. 2. Acute respiratory failure secondary to acute aspiration event. 3. Severe pneumonia. 4. Escherichia coli bacteremia. Repeat blood cultures negative. 5. Biliary obstruction, status post unsuccessful ERCP on 07/03/2016, PTC on 07/05/2016. 6. Status post EGD on 07/13/2016 that showed obstructing tumor growing over the stent. 7. Urinary tract infection, urine culture growing Chelsy albicans, Pseudomonas. 8. Acute renal failure, on hemodialysis. 9. Diabetic gastroparesis. 10. Metastatic urothelial cancer. PLAN: The patient is clinically stable, tolerates weaning. He is covered with broad spectrum antib iotics. Repeat blood cultures negative. Sputum cultures pending. Continue weaning trials as per p ulmonary. Follow oncology recommendations. Dictated By: MARIELA ROBIN CROP INSURANCE CLAIMS ADJUSTER for PENNY JOSEPH MD NI/ANN MARIE Conf#: [id number] DID#: [id number]
[2016-07-17] VITALS (36 sets, daily range): BP systolic 102–115; BP diastolic 65–88; PULSE 72–88; RESP 11–29
[2016-07-17] MEDS: NS + KCL 20 MEQ 1,000 ML IV SCH ×3 (00:39→17:46)
[2016-07-17] MEDS: PROPOFOL 100 ML IV SCH ×4 (02:10→22:28)
[2016-07-17] MEDS: morphine 2 MG INJ IV PRN ×2 (02:17→22:36)
[2016-07-17] MEDS: ALBUTEROL 18 GM INHALER INH PRN (03:50)
[2016-07-17] MEDS: IPRATROPIUM (HFA) 12.9 GM INHALER INH PRN (03:50)
[2016-07-17 04:40] LABS: ADD SCAN DIFF NO
[2016-07-17 04:43] LABS: ABNORMAL IP MESSAGE 1; BASOPHILS % 0.1 % (0.0-2.0); HEMATOCRIT 34.1 % (42.0-52.0); HEMOGLOBIN 11.6 g/dl (14.0-18.0); LYMPHOCYTES # 0.4 10^3/ul (0.8-2.9); LYMPHOCYTES % 4.3 % (15.0-51.0); MEAN CORPUSCULAR HEMOGLOBIN 30.6 pg (29.0-33.0); MEAN PLATELET VOLUME 11.1 fl (7.4-10.4); MONOCYTE # 0.4 10^3/ul (0.3-0.9); MONOCYTES % 4.7 % (0.0-11.0); NEUTROPHIL # 7.7 10^3/ul (1.6-7.5); NEUTROPHILS % 86.3 % (39.0-77.0); NUCLEATED RED BLOOD CELLS # 0.1 10^3/ul (0.0-0.0); NUCLEATED RED BLOOD CELLS% 0.6 /100WBC (0.0-0.0); PLATELET COUNT 123 10^3/UL (140-415); RED BLOOD COUNT 3.79 10^6/ul (4.70-6.10); RED CELL DISTRIBUTION WIDTH 18.4 % (11.5-14.5); WHITE BLOOD COUNT 8.9 10^3/ul (4.8-10.8)
[2016-07-17 05:03] LABS: ALBUMIN 2.1 g/dl (3.3-4.9)
[2016-07-17 05:04] LABS: POTASSIUM 4.7 mmol/L (3.5-5.1)
[2016-07-17 05:06] LABS: ALBUMIN/GLOBULIN RATIO 0.72; BILIRUBIN,DIRECT 3.6 mg/dl (0.00-0.20); BILIRUBIN,INDIRECT 0.5 mg/dl (0-1.1); BILIRUBIN,TOTAL 4.1 mg/dl (0.2-1.3)
[2016-07-17 05:07] LABS: CALCIUM 7.3 mg/dl (8.4-10.2)
[2016-07-17 05:11] LABS: AADO2 Arterial 145.1 mmHg (7.0-24.0); Allen Test ACCEPTAB; Arterial Base Excess -4.3 mmol/L (-3.0-3); Arterial COHb 0.2 % (0.0-3.0); Arterial Fraction of Oxyhgb 92.6 % (93.0-99.0); Arterial HCO3 19.5 mmol/L (22.0-26.0); Arterial MetHb 0.2 % (0.0-1.5); Arterial Total Hemglobin 12.7 g/dl (12.0-18.0); Blood Gas PS 14; MODE VENT - SIMV
[2016-07-17 05:26] LABS: CREATININE 2.38 mg/dl (0.61-1.24)
[2016-07-17] MEDS: ERYTHROMYCIN LACTOBIONATE 250 MG in SOD CHLORIDE 0.9% 100 ML IVPB SCH ×3 (06:07→17:17)
[2016-07-17] MEDS: METHYLPREDNISOLONE 40 MG INJ IV SCH ×3 (06:07→17:17)
[2016-07-17] MEDS: METOCLOPRAMIDE 10 MG INJ IV SCH ×3 (06:07→17:17)
[2016-07-17] MEDS: PANTOPRAZOLE 40 MG INJ IV SCH (06:07)
--- NOTE | 2016-07-17 10:10 | CONS ---
Date/Time of Note Date/Time of Note DATE: 07/17/16 TIME: 10:03 Consult Date/Type/Reason Admit Date/Time Jun 30, 2016 at 15:42 Initial Consult Date 07/12/16 Type of Consultation: Pulm/CCM Ordering Provider: GAMALIEL HAIR MD Subjective stable, s/p HD yesterday, pt remains intubated, Propofol 3 mc/kg/min, family at bed side, dw staff Objective Vital Signs Date Time Temp Pulse Resp B/P Pulse Ox O2 Delivery O2 Flow Rate FiO2 07/17/16 09:24 81 22 96 45 07/17/16 09:00 102/73 Mechanical Ventilator 07/17/16 07:00 97.8 Intake and Output 07/16/16 07/16/16 07/17/16 15:00 23:00 07:00 Intake Total 1413.0 ml 988.2 ml 1050.0 ml Output Total 5315 ml 15 ml 50 ml Balance -3902.0 ml 973.2 ml 1000.0 ml Exam Constitutional: non-verbal, remains intubated, Anasarca Respiratory: diminished BS bilaterally a bases Cardiovascular: regular rate and rhythm Gastrointestinal: soft, No distended Musculoskeletal: edema BUE, BLE Neuro: unresponsive Results/Medications Result Diagram: 07/17/16 0345 07/17/16 0345 Results 24 hrs Laboratory Tests Test 07/17/16 03:45 07/17/16 05:00 White Blood Count 8.9 # Red Blood Count 3.79 L Hemoglobin 11.6 L Hematocrit 34.1 L Mean Corpuscular Volume 90.0 Mean Corpuscular Hemoglobin 30.6 Mean Corpuscular Hemoglobin Concent 34.0 Red Cell Distribution Width 18.4 H Platelet Count 123 L Mean Platelet Volume 11.1 H Neutrophils % 86.3 H Lymphocytes % 4.3 L Monocytes % 4.7 Eosinophils % 0.0 Basophils % 0.1 Nucleated Red Blood Cells % 0.6 H Neutrophils # 7.7 H Lymphocytes # 0.4 L Monocytes # 0.4 Eosinophils # 0.0 Basophils # 0.0 Nucleated Red Blood Cells # 0.1 H Sodium Level 140 Potassium Level 4.7 Chloride Level 108 Carbon Dioxide Level 19 L Anion Gap 18 H Blood Urea Nitrogen 53 H Creatinine 2.38 H Glucose Level 154 Lactic Acid Level 1.5 Calcium Level 7.3 L Total Bilirubin 4.1 H Direct Bilirubin 3.60 H Indirect Bilirubin 0.5 Aspartate Amino Transf (AST/SGOT) 108 H Alanine Aminotransferase (ALT/SGPT) 90 H Alkaline Phosphatase 149 H Total Protein 5.0 L Albumin 2.1 L Globulin 2.90 Albumin/Globulin Ratio 0.72 Blood Gas Specimen Source Blood arterial Arterial Blood Date Drawn 07/17/2016 4:50:30 AM Arterial Blood pH (Temp corrected) 7.405 Arterial Blood pCO2 (Temp correct) 31.8 L Arterial Blood pO2 (Temp corrected) 67.5 L Arterial Blood HCO3 19.5 L Arterial Blood Base Excess -4.3 L Arterial Blood Oxygen Saturation 93.0 L Og Test ACCEPTAB Arterial Blood Gas Puncture Site Right Radial Arterial Blood Carboxyhemoglobin 0.2 Arterial Blood Methemoglobin 0.2 Blood Gas A-a O2 Differential 145.1 H Oxyhemoglobin Percent 92.6 L Total Hemoglobin 12.7 Blood Gas Temperature 37.0 Blood Gas Respiration Rate 4.0 Blood Gas Actual Respiration Rate 30 Blood Gas Modality VENT - SIMV FiO2 35.0 Blood Gas Low PEEP Setting 5.0 Blood Gas Inspiratory Pressure 20.0 Blood Gas Pressure Support 14 Blood Gas Notified Whom UP Blood Gas Notified Time 07/17/2016 5:10:53 AM Medications Current Medications Potassium Chloride/Sodium Chloride (NS-KCl 20 Meq) 1,000 ml @ 100 mls/hr Q10H IV Last administered on 07/17/16 08:43; Admin Dose 100 MLS/HR; Start 06/30/16 at 16:18 Ondansetron HCl (Zofran Inj) 4 mg Q6H PRN IV NAUSEA AND/OR VOMITING Last administered on 07/12/16 03:27; Admin Dose 4 MG; Start 06/30/16 at 16:30 Acetaminophen (Tylenol Tab) 650 mg Q6H PRN PO PAIN LEVEL 1-3 OR FEVER Last administered on 07/05/16 19:31; Admin Dose 650 MG; Start 06/30/16 at 16:30 Acetaminophen (Tylenol Supp) 650 mg Q6H PRN [place] PAIN LEVEL 1-3 OR FEVER; Start 06/30/16 at 16:30 Acetaminophen/ Hydrocodone Bitart ([place] (5/325)) 1 tab Q6H PRN PO MODERATE PAIN LEVEL 4-6 Last administered on 07/10/16 22:33; Admin Dose 1 TAB; Start at 16:30 Acetaminophen/ Hydrocodone Bitart ([place] (5/325)) 2 tab Q6H PRN PO SEVERE PAIN LEVEL 7-10 Last administered on 07/10/16 13:15; Admin Dose 2 TAB; Start at 16:30 Morphine Sulfate (morphine) 2 mg Q4H PRN IV SEVERE PAIN LEVEL 7-10 Last administered on 07/17/16 02:17; Admin Dose 2 MG; Start 06/30/16 at 16:30 Docusate Sodium (Colace) 100 mg Q12H PRN PO CONSTIPATION; Start 06/30/16 at 16: 30 Magnesium Hydroxide (Milk Of Mag) 30 ml DAILY PRN PO CONSTIPATION; Start at 16:30 Bisacodyl (Dulcolax Supp) 10 mg DAILY PRN [place] CONSTIPATION; Start 06/30/16 at 16 :30 Pantoprazole (Protonix Iv) 40 mg DAILY@06 IV Last administered on 07/17/16 06: 07; Admin Dose 40 MG; Start 07/01/16 at 06:00 Metoclopramide HCl 10 mg 10 mg Q6 IV Last administered on 07/17/16 06:07; Admin Dose 10 MG; Start 07/03/16 at 18:00 Erythromycin Lactobionate/ Sodium Chloride (Erythromycin Lactobionate/NS) 100 ml @ 100 mls/hr Q6 IVPB Last administered on 07/17/16 06:07; Admin Dose 100 MLS/HR; Start 07/09/16 at 00:00 Methylprednisolone Sodium Succinate 40 mg 40 mg Q6 IV Last administered on 07/17 06:07; Admin Dose 40 MG; Start 07/12/16 at 13:30 Propofol 100 ml @ 2.1 mls/hr Q12H IV Last administered on 07/17/16 09:23; Admin Dose 12.6 MLS/HR; Start 07/12/16 at 21:00 Norepinephrine 16 mg/Dextrose 500 ml @ 1.87 mls/hr TITRATE IV Last administered on 07/13/16 13:43; Admin Dose 18.75 MLS/HR; Start 07/13/16 at 08: 00 Fluconazole/ Sodium Chloride (Diflucan 100 Mg/ NS (Pmx)) 50 ml @ 50 mls/hr Q24H IVPB Last administered on 07/16/16 11:59; Admin Dose 50 MLS/HR; Start at 11:00 Albuterol (Ventolin Hfa) 2 puff Q4H PRN INH SHORTNESS OF BREATH Last administered on 07/17/16 03:50; Admin Dose 2 PUFF; Start 07/14/16 at 22:00 Ipratropium [place] 4 puff 4 puff Q4H PRN INH SHORTNESS OF BREATH Last administered on 07/17/16 03:50; Admin Dose 4 PUFF; Start 07/14/16 at 22:00 Meropenem (Merrem 500 Mg/ 100 ml (Pmx)) 100 ml @ 200 mls/hr Q24H IVPB Last administered on 07/16/16 21:05; Admin Dose 200 MLS/HR; Start 07/16/16 at 21:00 Assessment/Plan Additional Assessment/Plan 1. Acute fluid overload with anasarca. 2. Acute kidney injury secondary to acute tubular necrosis from septic shock and also contributing vancomycin. 3. Metabolic acidosis secondary to acute renal failure. 4. 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 5. Septic shock secondary to aspiration pneumonia and gastric outlet obstruction, status post duodenal stent placement. PLAN: started on HD yesterday for fluid overload during this admission, s/p HD x 2 days in row, pt remains intubated pt received total 2 units PRBC with HD in last two days will continue to follow up weaning plan as per pulmonary- not ready for extubation at present Further recommendations depend upon patient's clinical course. Total time spent is 30 mins in reviewing patients chart/DW Dr Stormy Coats;/staff/patient. POLINA GASTELUM July 17, 2016 10:10
[2016-07-17] MEDS: FLUCONAZOLE 100 MG/NS (PMX) 50 ML IVPB SCH (10:34)
--- NOTE | 2016-07-17 12:53 | CONS ---
Date/Time of Note Date/Time of Note DATE: 07/17/16 TIME: 12:51 Consult Date/Type/Reason Admit Date/Time Jun 30, 2016 at 15:42 Initial Consult Date 07/12/16 Type of Consultation: Pulm/CCM Ordering Provider: GAMALIEL HAIR MD Subjective No events. Tolerating SIMV with PS Objective Vital Signs Date Time Temp Pulse Resp B/P Pulse Ox O2 Delivery O2 Flow Rate FiO2 07/17/16 12:00 75 07/17/16 12:00 98.6 24 107/72 96 Mechanical Ventilator 07/17/16 11:08 45 Intake and Output 07/16/16 07/16/16 07/17/16 15:00 23:00 07:00 Intake Total 1413.0 ml 988.2 ml 1050.0 ml Output Total 5315 ml 15 ml 50 ml Balance -3902.0 ml 973.2 ml 1000.0 ml Exam HEENT: Pupils equal, round, and reactive to light. CARDIAC: S1, S2, 1/6 systolic ejection murmur CHEST: Left course BS ABDOMEN: Mildly distended. Bowel sounds present no guarding or rebound EXTREMITIES: No cyanosis, clubbing edema +1 Results/Medications Result Diagram: 07/17/16 0345 07/17/16 0345 Results 24 hrs Laboratory Tests Test 07/17/16 03:45 07/17/16 05:00 White Blood Count 8.9 # Red Blood Count 3.79 L Hemoglobin 11.6 L Hematocrit 34.1 L Mean Corpuscular Volume 90.0 Mean Corpuscular Hemoglobin 30.6 Mean Corpuscular Hemoglobin Concent 34.0 Red Cell Distribution Width 18.4 H Platelet Count 123 L Mean Platelet Volume 11.1 H Neutrophils % 86.3 H Lymphocytes % 4.3 L Monocytes % 4.7 Eosinophils % 0.0 Basophils % 0.1 Nucleated Red Blood Cells % 0.6 H Neutrophils # 7.7 H Lymphocytes # 0.4 L Monocytes # 0.4 Eosinophils # 0.0 Basophils # 0.0 Nucleated Red Blood Cells # 0.1 H Sodium Level 140 Potassium Level 4.7 Chloride Level 108 Carbon Dioxide Level 19 L Anion Gap 18 H Blood Urea Nitrogen 53 H Creatinine 2.38 H Glucose Level 154 Lactic Acid Level 1.5 Calcium Level 7.3 L Total Bilirubin 4.1 H Direct Bilirubin 3.60 H Indirect Bilirubin 0.5 Aspartate Amino Transf (AST/SGOT) 108 H Alanine Aminotransferase (ALT/SGPT) 90 H Alkaline Phosphatase 149 H Total Protein 5.0 L Albumin 2.1 L Globulin 2.90 Albumin/Globulin Ratio 0.72 Blood Gas Specimen Source Blood arterial Arterial Blood Date Drawn 07/17/2016 4:50:30 AM Arterial Blood pH (Temp corrected) 7.405 Arterial Blood pCO2 (Temp correct) 31.8 L Arterial Blood pO2 (Temp corrected) 67.5 L Arterial Blood HCO3 19.5 L Arterial Blood Base Excess -4.3 L Arterial Blood Oxygen Saturation 93.0 L Og Test ACCEPTAB Arterial Blood Gas Puncture Site Right Radial Arterial Blood Carboxyhemoglobin 0.2 Arterial Blood Methemoglobin 0.2 Blood Gas A-a O2 Differential 145.1 H Oxyhemoglobin Percent 92.6 L Total Hemoglobin 12.7 Blood Gas Temperature 37.0 Blood Gas Respiration Rate 4.0 Blood Gas Actual Respiration Rate 30 Blood Gas Modality VENT - SIMV FiO2 35.0 Blood Gas Low PEEP Setting 5.0 Blood Gas Inspiratory Pressure 20.0 Blood Gas Pressure Support 14 Blood Gas Notified Whom UP Blood Gas Notified Time 07/17/2016 5:10:53 AM Medications Current Medications Potassium Chloride/Sodium Chloride (NS-KCl 20 Meq) 1,000 ml @ 100 mls/hr Q10H IV Last administered on 07/17/16 08:43; Admin Dose 100 MLS/HR; Start 06/30/16 at 16:18 Ondansetron HCl (Zofran Inj) 4 mg Q6H PRN IV NAUSEA AND/OR VOMITING Last administered on 07/12/16 03:27; Admin Dose 4 MG; Start 06/30/16 at 16:30 Acetaminophen (Tylenol Tab) 650 mg Q6H PRN PO PAIN LEVEL 1-3 OR FEVER Last administered on 07/05/16 19:31; Admin Dose 650 MG; Start 06/30/16 at 16:30 Acetaminophen (Tylenol Supp) 650 mg Q6H PRN [place] PAIN LEVEL 1-3 OR FEVER; Start 06/30/16 at 16:30 Acetaminophen/ Hydrocodone Bitart ([place] (5/325)) 1 tab Q6H PRN PO MODERATE PAIN LEVEL 4-6 Last administered on 07/10/16 22:33; Admin Dose 1 TAB; Start at 16:30 Acetaminophen/ Hydrocodone Bitart ([place] (5/325)) 2 tab Q6H PRN PO SEVERE PAIN LEVEL 7-10 Last administered on 07/10/16 13:15; Admin Dose 2 TAB; Start at 16:30 Morphine Sulfate (morphine) 2 mg Q4H PRN IV SEVERE PAIN LEVEL 7-10 Last administered on 07/17/16 02:17; Admin Dose 2 MG; Start 06/30/16 at 16:30 Docusate Sodium (Colace) 100 mg Q12H PRN PO CONSTIPATION; Start 06/30/16 at 16: 30 Magnesium Hydroxide (Milk Of Mag) 30 ml DAILY PRN PO CONSTIPATION; Start at 16:30 Bisacodyl (Dulcolax Supp) 10 mg DAILY PRN [place] CONSTIPATION; Start 06/30/16 at 16 :30 Pantoprazole (Protonix Iv) 40 mg DAILY@06 IV Last administered on 07/17/16 06: 07; Admin Dose 40 MG; Start 07/01/16 at 06:00 Metoclopramide HCl 10 mg 10 mg Q6 IV Last administered on 07/17/16 11:30; Admin Dose 10 MG; Start 07/03/16 at 18:00 Erythromycin Lactobionate/ Sodium Chloride (Erythromycin Lactobionate/NS) 100 ml @ 100 mls/hr Q6 IVPB Last administered on 07/17/16 11:31; Admin Dose 100 MLS/HR; Start 07/09/16 at 00:00 Methylprednisolone Sodium Succinate 40 mg 40 mg Q6 IV Last administered on 07/17 11:30; Admin Dose 40 MG; Start 07/12/16 at 13:30 Propofol 100 ml @ 2.1 mls/hr Q12H IV Last administered on 07/17/16 09:23; Admin Dose 12.6 MLS/HR; Start 07/12/16 at 21:00 Norepinephrine 16 mg/Dextrose 500 ml @ 1.87 mls/hr TITRATE IV Last administered on 07/13/16 13:43; Admin Dose 18.75 MLS/HR; Start 07/13/16 at 08: 00 Fluconazole/ Sodium Chloride (Diflucan 100 Mg/ NS (Pmx)) 50 ml @ 50 mls/hr Q24H IVPB Last administered on 07/17/16 10:34; Admin Dose 50 MLS/HR; Start at 11:00 Albuterol (Ventolin Hfa) 2 puff Q4H PRN INH SHORTNESS OF BREATH Last administered on 07/17/16 03:50; Admin Dose 2 PUFF; Start 07/14/16 at 22:00 Ipratropium [place] 4 puff 4 puff Q4H PRN INH SHORTNESS OF BREATH Last administered on 07/17/16 03:50; Admin Dose 4 PUFF; Start 07/14/16 at 22:00 Meropenem (Merrem 500 Mg/ 100 ml (Pmx)) 100 ml @ 200 mls/hr Q24H IVPB Last administered on 07/16/16 21:05; Admin Dose 200 MLS/HR; Start 07/16/16 at 21:00 Assessment/Plan Additional Assessment/Plan IMP: 1. Hypoxemic respiratory failure likely secondary to aspiration pneumonia and failure to wean due to NM weakness 2. Septic shock- improved 3. Metastatic bladder cancer 4. Renal failure RECS: 1. Gradual SIMV wean; to lower PS to 12 and reduce as tolerated. Once we are at 6-8 of PS, can transition to CPAP/PS 2. BD's 3. HD per renal 4. Am labs/CXR 35 min cc time PARDEEP CORRAL MD July 17, 2016 12:53
--- NOTE | 2016-07-17 14:31 | CONS ---
Date/Time of Note Date/Time of Note DATE: 07/17/16 TIME: 14:30 Assessment/Plan Assessment/Plan Chief Complaint/Hosp Course UBJECTIVE: No acute changes. The patient is awake, on SIMV, looks comfortable. Denies pain, no fevers. INDWELLINGS: Endotracheal tube, NG tube, right upper chest Port-A-Cath, intra- abdominal drainage catheter, [place] and [place]. ANTIMICROBIALS: The patient is on: 1. Fluconazole. 2. IV Vancomycin. 3. IV erythromycin. 4. Meropenem. PHYSICAL EXAMINATION: GENERAL: Well-developed, fragile, elderly man who is awake, in no distress. HEENT: Head atraumatic, normocephalic. Sclerae anicteric. Buccal mucosa dry. NECK: Supple, trachea midline. CHEST: Rise symmetrical. Breath sounds clear. HEART: S1, S2. ABDOMEN: Soft, bowel tones present. EXTREMITIES: Without cyanosis. ASSESSMENT: 1. Severe sepsis with shock==> off pressors. 2. Acute respiratory failure secondary to acute aspiration event. 3. Pneumonia. 4. Escherichia coli bacteremia on admission. Repeat blood cultures negative. 5. Biliary obstruction, status post unsuccessful ERCP on 07/03/2016, PTC on 04/2016. 6. Status post EGD on 07/13/2016 that showed obstructing tumor growing over the stent. 7. Urinary tract infection, urine culture growing [place] albicans, Pseudomonas. 8. Acute renal failure, on hemodialysis. 9. Diabetic gastroparesis. 10 Metastatic urothelial cancer. PLAN: Stable, tolerates weaning. Repeat blood cultures negative. Continue abx. Follow oncology recommendations. RYLIE RN Problems: Consultation Date/Type/Reason Admit Date/Time Jun 30, 2016 at 15:42 Initial Consult Date 06/30/16 Type of Consultation: id Referring Provider: GAMALIEL HAIR MD Exam/Review of Systems Vital Signs Vitals Vital Signs Date Time Temp Pulse Resp B/P Pulse Ox O2 Delivery O2 Flow Rate FiO2 07/17/16 14:00 78 27 111/74 96 Mechanical Ventilator 07/17/16 13:17 45 07/17/16 12:00 98.6 Intake and Output 07/16/16 07/16/16 07/17/16 15:00 23:00 07:00 Intake Total 1413.0 ml 988.2 ml 1050.0 ml Output Total 5315 ml 15 ml 50 ml Balance -3902.0 ml 973.2 ml 1000.0 ml Results Result Diagram: 07/17/16 0345 07/17/16 0345 Results 24 hrs Laboratory Tests Test 07/17/16 03:45 07/17/16 05:00 White Blood Count 8.9 # Red Blood Count 3.79 L Hemoglobin 11.6 L Hematocrit 34.1 L Mean Corpuscular Volume 90.0 Mean Corpuscular Hemoglobin 30.6 Mean Corpuscular Hemoglobin Concent 34.0 Red Cell Distribution Width 18.4 H Platelet Count 123 L Mean Platelet Volume 11.1 H Neutrophils % 86.3 H Lymphocytes % 4.3 L Monocytes % 4.7 Eosinophils % 0.0 Basophils % 0.1 Nucleated Red Blood Cells % 0.6 H Neutrophils # 7.7 H Lymphocytes # 0.4 L Monocytes # 0.4 Eosinophils # 0.0 Basophils # 0.0 Nucleated Red Blood Cells # 0.1 H Sodium Level 140 Potassium Level 4.7 Chloride Level 108 Carbon Dioxide Level 19 L Anion Gap 18 H Blood Urea Nitrogen 53 H Creatinine 2.38 H Glucose Level 154 Lactic Acid Level 1.5 Calcium Level 7.3 L Total Bilirubin 4.1 H Direct Bilirubin 3.60 H Indirect Bilirubin 0.5 Aspartate Amino Transf (AST/SGOT) 108 H Alanine Aminotransferase (ALT/SGPT) 90 H Alkaline Phosphatase 149 H Total Protein 5.0 L Albumin 2.1 L Globulin 2.90 Albumin/Globulin Ratio 0.72 Blood Gas Specimen Source Blood arterial Arterial Blood Date Drawn 07/17/2016 4:50:30 AM Arterial Blood pH (Temp corrected) 7.405 Arterial Blood pCO2 (Temp correct) 31.8 L Arterial Blood pO2 (Temp corrected) 67.5 L Arterial Blood HCO3 19.5 L Arterial Blood Base Excess -4.3 L Arterial Blood Oxygen Saturation 93.0 L Og Test ACCEPTAB Arterial Blood Gas Puncture Site Right Radial Arterial Blood Carboxyhemoglobin 0.2 Arterial Blood Methemoglobin 0.2 Blood Gas A-a O2 Differential 145.1 H Oxyhemoglobin Percent 92.6 L Total Hemoglobin 12.7 Blood Gas Temperature 37.0 Blood Gas Respiration Rate 4.0 Blood Gas Actual Respiration Rate 30 Blood Gas Modality VENT - SIMV FiO2 35.0 Blood Gas Low PEEP Setting 5.0 Blood Gas Inspiratory Pressure 20.0 Blood Gas Pressure Support 14 Blood Gas Notified Whom UP Blood Gas Notified Time 07/17/2016 5:10:53 AM Medications Medications Current Medications Potassium Chloride/Sodium Chloride (NS-KCl 20 Meq) 1,000 ml @ 100 mls/hr Q10H IV Last administered on 07/17/16 08:43; Admin Dose 100 MLS/HR; Start 06/30/16 at 16:18 Ondansetron HCl (Zofran Inj) 4 mg Q6H PRN IV NAUSEA AND/OR VOMITING Last administered on 07/12/16 03:27; Admin Dose 4 MG; Start 06/30/16 at 16:30 Acetaminophen (Tylenol Tab) 650 mg Q6H PRN PO PAIN LEVEL 1-3 OR FEVER Last administered on 07/05/16 19:31; Admin Dose 650 MG; Start 06/30/16 at 16:30 Acetaminophen (Tylenol Supp) 650 mg Q6H PRN [place] PAIN LEVEL 1-3 OR FEVER; Start 06/30/16 at 16:30 Acetaminophen/ Hydrocodone Bitart ([place] (5/325)) 1 tab Q6H PRN PO MODERATE PAIN LEVEL 4-6 Last administered on 07/10/16 22:33; Admin Dose 1 TAB; Start at 16:30 Acetaminophen/ Hydrocodone Bitart ([place] (5/325)) 2 tab Q6H PRN PO SEVERE PAIN LEVEL 7-10 Last administered on 07/10/16 13:15; Admin Dose 2 TAB; Start at 16:30 Morphine Sulfate (morphine) 2 mg Q4H PRN IV SEVERE PAIN LEVEL 7-10 Last administered on 07/17/16 02:17; Admin Dose 2 MG; Start 06/30/16 at 16:30 Docusate Sodium (Colace) 100 mg Q12H PRN PO CONSTIPATION; Start 06/30/16 at 16: 30 Magnesium Hydroxide (Milk Of Mag) 30 ml DAILY PRN PO CONSTIPATION; Start at 16:30 Bisacodyl (Dulcolax Supp) 10 mg DAILY PRN [place] CONSTIPATION; Start 06/30/16 at 16 :30 Pantoprazole (Protonix Iv) 40 mg DAILY@06 IV Last administered on 07/17/16 06: 07; Admin Dose 40 MG; Start 07/01/16 at 06:00 Metoclopramide HCl 10 mg 10 mg Q6 IV Last administered on 07/17/16 11:30; Admin Dose 10 MG; Start 07/03/16 at 18:00 Erythromycin Lactobionate/ Sodium Chloride (Erythromycin Lactobionate/NS) 100 ml @ 100 mls/hr Q6 IVPB Last administered on 07/17/16 11:31; Admin Dose 100 MLS/HR; Start 07/09/16 at 00:00 Methylprednisolone Sodium Succinate 40 mg 40 mg Q6 IV Last administered on 07/17 11:30; Admin Dose 40 MG; Start 07/12/16 at 13:30 Propofol 100 ml @ 2.1 mls/hr Q12H IV Last administered on 07/17/16 09:23; Admin Dose 12.6 MLS/HR; Start 07/12/16 at 21:00 Norepinephrine 16 mg/Dextrose 500 ml @ 1.87 mls/hr TITRATE IV Last administered on 07/13/16 13:43; Admin Dose 18.75 MLS/HR; Start 07/13/16 at 08: 00 Fluconazole/ Sodium Chloride (Diflucan 100 Mg/ NS (Pmx)) 50 ml @ 50 mls/hr Q24H IVPB Last administered on 07/17/16 10:34; Admin Dose 50 MLS/HR; Start at 11:00 Albuterol (Ventolin Hfa) 2 puff Q4H PRN INH SHORTNESS OF BREATH Last administered on 07/17/16 03:50; Admin Dose 2 PUFF; Start 07/14/16 at 22:00 Ipratropium [place] 4 puff 4 puff Q4H PRN INH SHORTNESS OF BREATH Last administered on 07/17/16 03:50; Admin Dose 4 PUFF; Start 07/14/16 at 22:00 Meropenem (Merrem 500 Mg/ 100 ml (Pmx)) 100 ml @ 200 mls/hr Q24H IVPB Last administered on 07/16/16 21:05; Admin Dose 200 MLS/HR; Start 07/16/16 at 21:00 MARIELA ROBIN NP July 17, 2016 14:31
--- NOTE | 2016-07-17 14:33 | CONS ---
Date/Time of Note Date/Time of Note DATE: 07/17/16 TIME: 14:31 Assessment/Plan Assessment/Plan Additional Assessment/Plan IMPRESSION: 1. Biliary obstruction. Status post biliary stent, bilirubin is now going up, radiologist needs to evaluate biliary drain 2. Gram negative bacteremia, either from the urine or from the biliary system. 3. 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 4. 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 Gastric outlet obstruction secondary to tumor growing over the proximal part of the metallic stent in the duodenum. 6. Aspiration pneumonia 7. Renal failure, it is multifactorial 8. UTI with Pseudomonas and Chelsy in the urine, E. coli in the blood Plan Continue NG tube to intermittent suction since the Patient has got gastric outlet obstruction. Biliary obstruction status post plastic biliary stent both external and internal Respiratory failure patient is on vent Continue antibiotic Within the patient off the vent since patient is alert awake and oriented and also his FiO2 has dropped down to almost 35% now When patient is more stable will place another duodenal stent. Patient is not a candidate for surgical bypass We should start chemo as soon as possible when the infection is under control ID consult Nephrology consult for possible dialysis Monitor liver function if bilirubin keeps going up and radiologist needs to evaluate biliary drainage Consultation Date/Type/Reason Admit Date/Time Jun 30, 2016 at 15:42 Initial Consult Date 06/30/16 Type of Consultation: id Referring Provider: GAMALIEL HAIR MD 24 HR Interval Summary Constitutional: improved Exam/Review of Systems Vital Signs Vitals Vital Signs Date Time Temp Pulse Resp B/P Pulse Ox O2 Delivery O2 Flow Rate FiO2 07/17/16 14:00 78 27 111/74 96 Mechanical Ventilator 07/17/16 13:17 45 07/17/16 12:00 98.6 Intake and Output 07/16/16 07/16/16 07/17/16 15:00 23:00 07:00 Intake Total 1413.0 ml 988.2 ml 1050.0 ml Output Total 5315 ml 15 ml 50 ml Balance -3902.0 ml 973.2 ml 1000.0 ml Exam Constitutional: alert, oriented, well developed Psych: nl mood/affect, no complaints Head: atraumatic, normocephalic Eyes: EOMI, PERRL, nl conjunctiva, nl lids, nl sclera ENMT: nl external ears & nose, nl lips & teeth, nl nasal mucosa & septum Neck: non-tender, supple Respiratory: clear to auscultation, normal air movement Cardiovascular: nl pulses, regular rate and rhythm Gastrointestinal: nl liver, spleen, non-tender, soft Musculoskeletal: nl extremities to inspection, nl gait and stance Extremities: normal pulses Neurological: BASS SINGER II-XII intact, nl mental status, nl speech, nl strength Skin: nl turgor, No rash or lesions Lymph: nl lymph nodes Results Result Diagram: 07/17/16 0345 07/17/16 0345 Results 24 hrs Laboratory Tests Test 07/17/16 03:45 07/17/16 05:00 White Blood Count 8.9 # Red Blood Count 3.79 L Hemoglobin 11.6 L Hematocrit 34.1 L Mean Corpuscular Volume 90.0 Mean Corpuscular Hemoglobin 30.6 Mean Corpuscular Hemoglobin Concent 34.0 Red Cell Distribution Width 18.4 H Platelet Count 123 L Mean Platelet Volume 11.1 H Neutrophils % 86.3 H Lymphocytes % 4.3 L Monocytes % 4.7 Eosinophils % 0.0 Basophils % 0.1 Nucleated Red Blood Cells % 0.6 H Neutrophils # 7.7 H Lymphocytes # 0.4 L Monocytes # 0.4 Eosinophils # 0.0 Basophils # 0.0 Nucleated Red Blood Cells # 0.1 H Sodium Level 140 Potassium Level 4.7 Chloride Level 108 Carbon Dioxide Level 19 L Anion Gap 18 H Blood Urea Nitrogen 53 H Creatinine 2.38 H Glucose Level 154 Lactic Acid Level 1.5 Calcium Level 7.3 L Total Bilirubin 4.1 H Direct Bilirubin 3.60 H Indirect Bilirubin 0.5 Aspartate Amino Transf (AST/SGOT) 108 H Alanine Aminotransferase (ALT/SGPT) 90 H Alkaline Phosphatase 149 H Total Protein 5.0 L Albumin 2.1 L Globulin 2.90 Albumin/Globulin Ratio 0.72 Blood Gas Specimen Source Blood arterial Arterial Blood Date Drawn 07/17/2016 4:50:30 AM Arterial Blood pH (Temp corrected) 7.405 Arterial Blood pCO2 (Temp correct) 31.8 L Arterial Blood pO2 (Temp corrected) 67.5 L Arterial Blood HCO3 19.5 L Arterial Blood Base Excess -4.3 L Arterial Blood Oxygen Saturation 93.0 L Og Test ACCEPTAB Arterial Blood Gas Puncture Site Right Radial Arterial Blood Carboxyhemoglobin 0.2 Arterial Blood Methemoglobin 0.2 Blood Gas A-a O2 Differential 145.1 H Oxyhemoglobin Percent 92.6 L Total Hemoglobin 12.7 Blood Gas Temperature 37.0 Blood Gas Respiration Rate 4.0 Blood Gas Actual Respiration Rate 30 Blood Gas Modality VENT - SIMV FiO2 35.0 Blood Gas Low PEEP Setting 5.0 Blood Gas Inspiratory Pressure 20.0 Blood Gas Pressure Support 14 Blood Gas Notified Whom UP Blood Gas Notified Time 07/17/2016 5:10:53 AM Medications Medications Current Medications Potassium Chloride/Sodium Chloride (NS-KCl 20 Meq) 1,000 ml @ 100 mls/hr Q10H IV Last administered on 07/17/16 08:43; Admin Dose 100 MLS/HR; Start 06/30/16 at 16:18 Ondansetron HCl (Zofran Inj) 4 mg Q6H PRN IV NAUSEA AND/OR VOMITING Last administered on 07/12/16 03:27; Admin Dose 4 MG; Start 06/30/16 at 16:30 Acetaminophen (Tylenol Tab) 650 mg Q6H PRN PO PAIN LEVEL 1-3 OR FEVER Last administered on 07/05/16 19:31; Admin Dose 650 MG; Start 06/30/16 at 16:30 Acetaminophen (Tylenol Supp) 650 mg Q6H PRN [place] PAIN LEVEL 1-3 OR FEVER; Start 06/30/16 at 16:30 Acetaminophen/ Hydrocodone Bitart ([place] (5/325)) 1 tab Q6H PRN PO MODERATE PAIN LEVEL 4-6 Last administered on 07/10/16 22:33; Admin Dose 1 TAB; Start at 16:30 Acetaminophen/ Hydrocodone Bitart ([place] (5/325)) 2 tab Q6H PRN PO SEVERE PAIN LEVEL 7-10 Last administered on 07/10/16 13:15; Admin Dose 2 TAB; Start at 16:30 Morphine Sulfate (morphine) 2 mg Q4H PRN IV SEVERE PAIN LEVEL 7-10 Last administered on 07/17/16 02:17; Admin Dose 2 MG; Start 06/30/16 at 16:30 Docusate Sodium (Colace) 100 mg Q12H PRN PO CONSTIPATION; Start 06/30/16 at 16: 30 Magnesium Hydroxide (Milk Of Mag) 30 ml DAILY PRN PO CONSTIPATION; Start at 16:30 Bisacodyl (Dulcolax Supp) 10 mg DAILY PRN [place] CONSTIPATION; Start 06/30/16 at 16 :30 Pantoprazole (Protonix Iv) 40 mg DAILY@06 IV Last administered on 07/17/16 06: 07; Admin Dose 40 MG; Start 07/01/16 at 06:00 Metoclopramide HCl 10 mg 10 mg Q6 IV Last administered on 07/17/16 11:30; Admin Dose 10 MG; Start 07/03/16 at 18:00 Erythromycin Lactobionate/ Sodium Chloride (Erythromycin Lactobionate/NS) 100 ml @ 100 mls/hr Q6 IVPB Last administered on 07/17/16 11:31; Admin Dose 100 MLS/HR; Start 07/09/16 at 00:00 Methylprednisolone Sodium Succinate 40 mg 40 mg Q6 IV Last administered on 07/17 11:30; Admin Dose 40 MG; Start 07/12/16 at 13:30 Propofol 100 ml @ 2.1 mls/hr Q12H IV Last administered on 07/17/16 09:23; Admin Dose 12.6 MLS/HR; Start 07/12/16 at 21:00 Norepinephrine 16 mg/Dextrose 500 ml @ 1.87 mls/hr TITRATE IV Last administered on 07/13/16 13:43; Admin Dose 18.75 MLS/HR; Start 07/13/16 at 08: 00 Fluconazole/ Sodium Chloride (Diflucan 100 Mg/ NS (Pmx)) 50 ml @ 50 mls/hr Q24H IVPB Last administered on 07/17/16 10:34; Admin Dose 50 MLS/HR; Start at 11:00 Albuterol (Ventolin Hfa) 2 puff Q4H PRN INH SHORTNESS OF BREATH Last administered on 07/17/16 03:50; Admin Dose 2 PUFF; Start 07/14/16 at 22:00 Ipratropium [place] 4 puff 4 puff Q4H PRN INH SHORTNESS OF BREATH Last administered on 07/17/16 03:50; Admin Dose 4 PUFF; Start 07/14/16 at 22:00 Meropenem (Merrem 500 Mg/ 100 ml (Pmx)) 100 ml @ 200 mls/hr Q24H IVPB Last administered on 07/16/16t 21:05; Admin Dose 200 MLS/HR; Start 07/16/16 at 21:00 TIANNA SALINAS MD July 17, 2016 14:33
--- NOTE | 2016-07-17 17:11 | PN ---
Date/Time of Note Date/Time of Note DATE: 07/17/16 TIME: 17:10 Assessment/Plan VTE Prophylaxis VTE Prophylaxis Intervention: SCD's Lines/Catheters IV Catheter Type (from Nrsg): deja Assessment/Plan Chief Complaint/Hosp Course 1. Septic Shock 2/2 Aspiration PNA -cont Vanco and Zosyn 2. Transaminitis with Hyperbilirubinemia 2nd biliary obstruction from metastatic cancer -as above 3. Metastatic Urothelial cancer with possible carcinomatosis -heme/onc to start chemotherapy 4. Hx obstructed duodenum with gastric outlet obstruction s/p duodenal stent Repeat duodenal stent placed today 5. Steatosis -Eventual nutrition and lifestyle optimization 6. Acute Respiratory Failure secondary to aspiration pneumonia Patient failed CPAP trials yesterday plan is to try again tomorrow cont vent management Continue Vanco and Zosyn Pulmonology consultation appreciated 7. CHARITY with fluid OD -Nephro consult appreciated, receiving HD Prophylaxis: SCDs Problems: Subjective 24 Hr Interval Summary Subjective hx not possible: pt non-verbal Exam/Review of Systems Vital Signs Vitals Vital Signs Date Time Temp Pulse Resp B/P Pulse Ox O2 Delivery O2 Flow Rate FiO2 07/17/16 17:00 74 13 106/74 98 Mechanical Ventilator 07/17/16 15:28 45 07/17/16 12:00 98.6 Intake and Output 07/16/16 07/16/16 07/17/16 15:00 23:00 07:00 Intake Total 1413.0 ml 988.2 ml 1050.0 ml Output Total 5315 ml 15 ml 50 ml Balance -3902.0 ml 973.2 ml 1000.0 ml Exam Constitutional: non-verbal ENMT: intubated Respiratory: clear to auscultation Cardiovascular: regular rate and rhythm Gastrointestinal: soft, No distended Musculoskeletal: nl extremities to inspection Results Result Diagram: 07/17/16 0345 07/17/16 0345 Results 24 hrs Laboratory Tests Test 07/17/16 03:45 07/17/16 05:00 White Blood Count 8.9 # Red Blood Count 3.79 L Hemoglobin 11.6 L Hematocrit 34.1 L Mean Corpuscular Volume 90.0 Mean Corpuscular Hemoglobin 30.6 Mean Corpuscular Hemoglobin Concent 34.0 Red Cell Distribution Width 18.4 H Platelet Count 123 L Mean Platelet Volume 11.1 H Neutrophils % 86.3 H Lymphocytes % 4.3 L Monocytes % 4.7 Eosinophils % 0.0 Basophils % 0.1 Nucleated Red Blood Cells % 0.6 H Neutrophils # 7.7 H Lymphocytes # 0.4 L Monocytes # 0.4 Eosinophils # 0.0 Basophils # 0.0 Nucleated Red Blood Cells # 0.1 H Sodium Level 140 Potassium Level 4.7 Chloride Level 108 Carbon Dioxide Level 19 L Anion Gap 18 H Blood Urea Nitrogen 53 H Creatinine 2.38 H Glucose Level 154 Lactic Acid Level 1.5 Calcium Level 7.3 L Total Bilirubin 4.1 H Direct Bilirubin 3.60 H Indirect Bilirubin 0.5 Aspartate Amino Transf (AST/SGOT) 108 H Alanine Aminotransferase (ALT/SGPT) 90 H Alkaline Phosphatase 149 H Total Protein 5.0 L Albumin 2.1 L Globulin 2.90 Albumin/Globulin Ratio 0.72 Blood Gas Specimen Source Blood arterial Arterial Blood Date Drawn 07/17/2016 4:50:30 AM Arterial Blood pH (Temp corrected) 7.405 Arterial Blood pCO2 (Temp correct) 31.8 L Arterial Blood pO2 (Temp corrected) 67.5 L Arterial Blood HCO3 19.5 L Arterial Blood Base Excess -4.3 L Arterial Blood Oxygen Saturation 93.0 L Og Test ACCEPTAB Arterial Blood Gas Puncture Site Right Radial Arterial Blood Carboxyhemoglobin 0.2 Arterial Blood Methemoglobin 0.2 Blood Gas A-a O2 Differential 145.1 H Oxyhemoglobin Percent 92.6 L Total Hemoglobin 12.7 Blood Gas Temperature 37.0 Blood Gas Respiration Rate 4.0 Blood Gas Actual Respiration Rate 30 Blood Gas Modality VENT - SIMV FiO2 35.0 Blood Gas Low PEEP Setting 5.0 Blood Gas Inspiratory Pressure 20.0 Blood Gas Pressure Support 14 Blood Gas Notified Whom UP Blood Gas Notified Time 07/17/2016 5:10:53 AM Medications Medications Current Medications Potassium Chloride/Sodium Chloride (NS-KCl 20 Meq) 1,000 ml @ 100 mls/hr Q10H IV Last administered on 07/17/16 08:43; Admin Dose 100 MLS/HR; Start 06/30/16 at 16:18 Ondansetron HCl (Zofran Inj) 4 mg Q6H PRN IV NAUSEA AND/OR VOMITING Last administered on 07/12/16 03:27; Admin Dose 4 MG; Start 06/30/16 at 16:30 Acetaminophen (Tylenol Tab) 650 mg Q6H PRN PO PAIN LEVEL 1-3 OR FEVER Last administered on 07/05/16 19:31; Admin Dose 650 MG; Start 06/30/16 at 16:30 Acetaminophen (Tylenol Supp) 650 mg Q6H PRN [place] PAIN LEVEL 1-3 OR FEVER; Start 06/30/16 at 16:30 Acetaminophen/ Hydrocodone Bitart ([place] (5/325)) 1 tab Q6H PRN PO MODERATE PAIN LEVEL 4-6 Last administered on 07/10/16 22:33; Admin Dose 1 TAB; Start at 16:30 Acetaminophen/ Hydrocodone Bitart ([place] (5/325)) 2 tab Q6H PRN PO SEVERE PAIN LEVEL 7-10 Last administered on 07/10/16 13:15; Admin Dose 2 TAB; Start at 16:30 Morphine Sulfate (morphine) 2 mg Q4H PRN IV SEVERE PAIN LEVEL 7-10 Last administered on 07/17/16 02:17; Admin Dose 2 MG; Start 06/30/16 at 16:30 Docusate Sodium (Colace) 100 mg Q12H PRN PO CONSTIPATION; Start 06/30/16 at 16: 30 Magnesium Hydroxide (Milk Of Mag) 30 ml DAILY PRN PO CONSTIPATION; Start at 16:30 Bisacodyl (Dulcolax Supp) 10 mg DAILY PRN [place] CONSTIPATION; Start 06/30/16 at 16 :30 Pantoprazole (Protonix Iv) 40 mg DAILY@06 IV Last administered on 07/17/16 06: 07; Admin Dose 40 MG; Start 07/01/16 at 06:00 Metoclopramide HCl 10 mg 10 mg Q6 IV Last administered on 07/17/16 11:30; Admin Dose 10 MG; Start 07/03/16 at 18:00 Erythromycin Lactobionate/ Sodium Chloride (Erythromycin Lactobionate/NS) 100 ml @ 100 mls/hr Q6 IVPB Last administered on 07/17/16 11:31; Admin Dose 100 MLS/HR; Start 07/09/16 at 00:00 Methylprednisolone Sodium Succinate 40 mg 40 mg Q6 IV Last administered on 07/17 11:30; Admin Dose 40 MG; Start 07/12/16 at 13:30 Propofol 100 ml @ 2.1 mls/hr Q12H IV Last administered on 07/17/16 15:14; Admin Dose 12.6 MLS/HR; Start 07/12/16 at 21:00 Norepinephrine 16 mg/Dextrose 500 ml @ 1.87 mls/hr TITRATE IV Last administered on 07/13/16 13:43; Admin Dose 18.75 MLS/HR; Start 07/13/16 at 08: 00 Fluconazole/ Sodium Chloride (Diflucan 100 Mg/ NS (Pmx)) 50 ml @ 50 mls/hr Q24H IVPB Last administered on 07/17/16 10:34; Admin Dose 50 MLS/HR; Start at 11:00 Albuterol (Ventolin Hfa) 2 puff Q4H PRN INH SHORTNESS OF BREATH Last administered on 07/17/16 03:50; Admin Dose 2 PUFF; Start 07/14/16 at 22:00 Ipratropium [place] 4 puff 4 puff Q4H PRN INH SHORTNESS OF BREATH Last administered on 07/17/16 03:50; Admin Dose 4 PUFF; Start 07/14/16 at 22:00 Meropenem (Merrem 500 Mg/ 100 ml (Pmx)) 100 ml @ 200 mls/hr Q24H IVPB Last administered on 07/16/16 21:05; Admin Dose 200 MLS/HR; Start 07/16/16 at 21:00 ERNESTINA CANTU July 17, 2016 17:11
[2016-07-17] MEDS: MEROPENEM 500 MG/100 ML (PMX) 100 ML IVPB SCH (21:29)
[2016-07-18] VITALS (55 sets, daily range): BP systolic 85–116; BP diastolic 56–76; PULSE 68–89; RESP 15–38
[2016-07-18] MEDS: METHYLPREDNISOLONE 40 MG INJ IV SCH ×2 (00:17→06:30)
[2016-07-18] MEDS: METOCLOPRAMIDE 10 MG INJ IV SCH ×4 (00:17→22:11)
[2016-07-18] MEDS: ERYTHROMYCIN LACTOBIONATE 250 MG in SOD CHLORIDE 0.9% 100 ML IVPB SCH ×4 (00:18→18:58)
[2016-07-18] MEDS: HYDROCODONE/APAP (5/325) TAB PO PRN (00:29)
--- NOTE | 2016-07-18 02:37 | RADRPT ---
PROCEDURE: XR Chest. CLINICAL INDICATION: Ventilated patient. TECHNIQUE: Single frontal view of the chest.. COMPARISON: 07/11/2016. FINDINGS: Endotracheal tube in place with tip about 45 mm above the valdo. Nasogastric tube in place with ti p off bottom of the film. Right central venous port is seen with tip in superior vena cava versus s uperior vena cava right atrial junction. Increased air space disease bilaterally with pulmonary vas cular junction with increased left lung base air space disease and left pleural effusion. No pleura l effusion on the right. No signs of pneumothorax are seen. The osseous structures and soft tissues are unremarkable. IMPRESSION: Increased failure with left pleural effusion. RPTAT: [facility] Physician Ra Date Time Electronically viewed and signed by Physician Ra on 07/18/2016 02:36 RS/
[2016-07-18 05:19] LABS: AADO2 Arterial 198.3 mmHg (7.0-24.0); Allen Test ACCEPTAB; Arterial Base Excess -7.3 mmol/L (-3.0-3); Arterial COHb 0.1 % (0.0-3.0); Arterial Fraction of Oxyhgb 95.5 % (93.0-99.0); Arterial HCO3 17.2 mmol/L (22.0-26.0); Arterial MetHb 0.4 % (0.0-1.5); Arterial Total Hemglobin 13.7 g/dl (12.0-18.0); Blood Gas PS 10; MODE VENT - SIMV
[2016-07-18] MEDS: PROPOFOL 100 ML IV SCH ×3 (05:23→19:01)
[2016-07-18] MEDS: NS + KCL 20 MEQ 1,000 ML IV SCH ×2 (05:24→14:27)
[2016-07-18 05:40] LABS: ADD SCAN DIFF NO
[2016-07-18 05:42] LABS: ABNORMAL IP MESSAGE 1; BASOPHILS % 0.1 % (0.0-2.0); LYMPHOCYTES # 0.3 10^3/ul (0.8-2.9); LYMPHOCYTES % 3.6 % (15.0-51.0); MEAN CORPUSCULAR HEMOGLOBIN 30.7 pg (29.0-33.0); MEAN CORPUSCULAR HGB CONC 34.2 g/dl (32.0-37.0); MEAN CORPUSCULAR VOLUME 89.8 fl (82.0-101.0); MEAN PLATELET VOLUME 10.5 fl (7.4-10.4); MONOCYTE # 0.4 10^3/ul (0.3-0.9); MONOCYTES % 4.4 % (0.0-11.0); NEUTROPHIL # 8.6 10^3/ul (1.6-7.5); NEUTROPHILS % 89.7 % (39.0-77.0); NUCLEATED RED BLOOD CELLS # 0.1 10^3/ul (0.0-0.0); NUCLEATED RED BLOOD CELLS% 0.5 /100WBC (0.0-0.0); PLATELET COUNT 134 10^3/UL (140-415); RED BLOOD COUNT 4.23 10^6/ul (4.70-6.10); RED CELL DISTRIBUTION WIDTH 18.1 % (11.5-14.5); WHITE BLOOD COUNT 9.6 10^3/ul (4.8-10.8)
[2016-07-18 06:07] LABS: ALBUMIN 2.2 g/dl (3.3-4.9); ALBUMIN/GLOBULIN RATIO 0.73; BILIRUBIN,DIRECT 3.7 mg/dl (0.00-0.20); BILIRUBIN,INDIRECT 0.4 mg/dl (0-1.1); BILIRUBIN,TOTAL 4.1 mg/dl (0.2-1.3); CALCIUM 7.8 mg/dl (8.4-10.2); POTASSIUM 5.8 mmol/L (3.5-5.1); TOTAL PROTEIN 5.2 g/dl (6.1-8.1)
[2016-07-18 06:25] LABS: CREATININE 2.97 mg/dl (0.61-1.24)
[2016-07-18] MEDS: PANTOPRAZOLE 40 MG INJ IV SCH (06:30)
--- NOTE | 2016-07-18 08:13 | RADRPT ---
PROCEDURE: XR Chest. CLINICAL INDICATION: Shortness of breath. TECHNIQUE: Single frontal view. COMPARISON: 07/17/2016. FINDINGS: The endotracheal tube, nasogastric tube, left internal jugular vein temporary dialysis catheter, and right internal jugular vein implanted port central venous catheter remain in satisfactory position. There is patchy air space disease throughout the left lung consistent with asymmetric pulmonary ed meme or pneumonia, worse than seen previously. There is left basilar atelectasis or pneumonia, also w orse than seen previously. The heart is enlarged. There is no pleural effusion. There is no pneumothorax. IMPRESSION: 1. Worse appearance of the lungs. 2. No other change from 07/17/2016. RPTAT: QQ .Naldo Oneal MD, MD Date Time Electronically viewed and signed by .Naldo Oneal MD, on 07/18/2016 08:13 .R/
--- NOTE | 2016-07-18 08:14 | CONS ---
Date/Time of Note Date/Time of Note DATE: 07/18/16 TIME: 08:14 Assessment/Plan Assessment/Plan Chief Complaint/Hosp Course 60 year old male with metastatic urothelial cancer who had presented during the last admission with gastric outlet obstruction status post duodenal stent . Has since been diagnosed with metastatic urothelial cancer Patient now readmitted with sepsis with abdominal pain. He is currently in critical condition, intubated in the ICU # metastatic urothelial cancer - CT A/P demonstrates infiltrative neoplasm involving the cecum, ascending colon and hepatic flexure with extension of tumor to the serosa involving the lateral wall of the duodenum. This has advanced as compared to 05/27/2016. - I had planned to start gemcitabine 1000 mg/m2 D1, 8 and carboplatin AUC 4.5 D1 however wanted to hold off for now until adequately treated with at least 14 days of antibiotics for bacteremia. If patient remained stable, I had planned to give chemo at the end of this week, however patient now with worsening of left lung pneumonia concerning for aspiration during EGD, tachycardic, hypotensive, intubated, on sedation, one pressor, broad spectrum antibiotics. Given rapidly growing tumor, would want to start chemo ISSA when patient more stable. - discussed with Dr. De, duodenal stent obstructed by tumor, status post new internal biliary catheter 07/11/16 - Dr. Nolan to arrange for POLST form to be filled out - acute drop in Hemog[place]in noted yesterday, s/p 1 unit pRBCs now Hgb 9.3, no evidence of bleeding, iron panel Fe 21, TIBC 148 (low), %14, ferritin 601 consistent with anemia of chronic inflammation, Vitamin B12/folate WNL, retic count inappropriately low; LDH elevated at 948, will check haptoglobin, LFTs to eval for hemolysis but lower suspicion. Will request peripheral smear review given metamyelocytes noted on differential. - Hg has improved after blood transfusion and is now > 10 # E. coli bacteremia - with sepsis secondary to biliary obstruction s/p attempted unsuccessful ERCP 07/03, s/p external percutaneous biliary drainage 07/05 - Last blood cultures were clear from 07/05/16 - will hold on removing the port for now. If ID feels it is necessary to remove and if bacteremia does not clear, will remove at that time # Biliary obstruction - per GI, patient Bili is stable. - s/p percutaneous biliary drain given rise in bilirubin. T bili now down to 1.6 - status post new biliary catheter 07/11/16 - status post EGD that demonstrated gastric outlet obstruction with tumor growing over stent and almost complete obstructing lumen, may need gastrojejunostomy vs. another stent per GI # Diabetic Gastroparesis - cont reglan; erythromycin added as prokinetic agent per GI # CHARITY - Acute kidney injury secondary to acute tubular necrosis from septic shock and also contributing vancomycin - cont HD per renal Problems: Consultation Date/Type/Reason Admit Date/Time Jun 30, 2016 at 15:42 Initial Consult Date 06/30/16 Type of Consultation: Oncology Referring Provider: GAMALIEL HAIR MD 24 HR Interval Summary Free Text/Dictation Patient remains intubated, unable to be weaned. Off pressors, still on propofol. Receiving dialysis. Exam/Review of Systems Vital Signs Vitals Vital Signs Date Time Temp Pulse Resp B/P Pulse Ox O2 Delivery O2 Flow Rate FiO2 07/18/16 07:00 73 24 105/76 93 Mechanical Ventilator 07/18/16 05:45 45 07/18/16 03:30 98.2 Intake and Output 07/17/16 07/17/16 07/18/16 15:00 23:00 07:00 Intake Total 963.4 ml 1111.4 ml 528 ml Output Total 25 ml 0 ml 0 ml Balance 938.4 ml 1111.4 ml 528 ml Exam Constitutional: non-verbal ENMT: intubated Neck: non-tender, supple Respiratory: crackles/rales, diminished breath sounds Gastrointestinal: soft Musculoskeletal: nl extremities to inspection, nl gait and stance Results Result Diagram: 07/18/16 0526 07/18/1626 Results 24 hrs Laboratory Tests Test 07/18/16 05:00 07/18/16 05:26 Blood Gas Specimen Source Blood arterial Arterial Blood Date Drawn 07/18/2016 5:13:44 AM Arterial Blood pH (Temp corrected) 7.348 L Arterial Blood pCO2 (Temp correct) 32.1 L Arterial Blood pO2 (Temp corrected) 86.0 Arterial Blood HCO3 17.2 L Arterial Blood Base Excess -7.3 L Arterial Blood Oxygen Saturation 96.0 Og Test ACCEPTAB Arterial Blood Gas Puncture Site Right Radial Arterial Blood Carboxyhemoglobin 0.1 Arterial Blood Methemoglobin 0.4 Blood Gas A-a O2 Differential 198.3 H Oxyhemoglobin Percent 95.5 Total Hemoglobin 13.7 Blood Gas Temperature 37.0 Blood Gas Respiration Rate 4.0 Blood Gas Actual Respiration Rate 25 Blood Gas Modality VENT - SIMV FiO2 45.0 Blood Gas Tidal Volume 600.0 Blood Gas Low PEEP Setting 5.0 Blood Gas Inspiratory Pressure 16.0 Blood Gas Pressure Support 10 Blood Gas Notified Whom BR Blood Gas Notified Time 07/18/2016 5:19:16 AM White Blood Count 9.6 Red Blood Count 4.23 L Hemoglobin 13.0 L Hematocrit 38.0 L Mean Corpuscular Volume 89.8 Mean Corpuscular Hemoglobin 30.7 Mean Corpuscular Hemoglobin Concent 34.2 Red Cell Distribution Width 18.1 H Platelet Count 134 L Mean Platelet Volume 10.5 H Neutrophils % 89.7 H Lymphocytes % 3.6 L Monocytes % 4.4 Eosinophils % 0.0 Basophils % 0.1 Nucleated Red Blood Cells % 0.5 H Neutrophils # 8.6 H Lymphocytes # 0.3 L Monocytes # 0.4 Eosinophils # 0.0 Basophils # 0.0 Nucleated Red Blood Cells # 0.1 H Sodium Level 137 Potassium Level 5.8 H Chloride Level 113 H Carbon Dioxide Level 16 L Anion Gap 14 Blood Urea Nitrogen 74 H Creatinine 2.97 H Glucose Level 170 Calcium Level 7.8 L Total Bilirubin 4.1 H Direct Bilirubin 3.70 H Indirect Bilirubin 0.4 Aspartate Amino Transf (AST/SGOT) 85 H Alanine Aminotransferase (ALT/SGPT) 95 H Alkaline Phosphatase 173 H Total Protein 5.2 L Albumin 2.2 L Globulin 3.00 Albumin/Globulin Ratio 0.73 Medications Medications Current Medications Potassium Chloride/Sodium Chloride (NS-KCl 20 Meq) 1,000 ml @ 100 mls/hr Q10H IV Last administered on 07/18/16 05:24; Admin Dose 100 MLS/HR; Start 06/30/16 at 16:18 Ondansetron HCl (Zofran Inj) 4 mg Q6H PRN IV NAUSEA AND/OR VOMITING Last administered on 07/12/16 03:27; Admin Dose 4 MG; Start 06/30/16 at 16:30 Acetaminophen (Tylenol Tab) 650 mg Q6H PRN PO PAIN LEVEL 1-3 OR FEVER Last administered on 07/05/16 19:31; Admin Dose 650 MG; Start 06/30/16 at 16:30 Acetaminophen (Tylenol Supp) 650 mg Q6H PRN [place] PAIN LEVEL 1-3 OR FEVER; Start 06/30/16 at 16:30 Acetaminophen/ Hydrocodone Bitart ([place] (5/325)) 1 tab Q6H PRN PO MODERATE PAIN LEVEL 4-6 Last administered on 07/18/16 00:29; Admin Dose 1 TAB; Start at 16:30 Acetaminophen/ Hydrocodone Bitart ([place] (5/325)) 2 tab Q6H PRN PO SEVERE PAIN LEVEL 7-10 Last administered on 07/10/16 13:15; Admin Dose 2 TAB; Start at 16:30 Morphine Sulfate (morphine) 2 mg Q4H PRN IV SEVERE PAIN LEVEL 7-10 Last administered on 07/17/16 22:36; Admin Dose 2 MG; Start 06/30/16 at 16:30 Docusate Sodium (Colace) 100 mg Q12H PRN PO CONSTIPATION; Start 06/30/16 at 16: 30 Magnesium Hydroxide (Milk Of Mag) 30 ml DAILY PRN PO CONSTIPATION; Start at 16:30 Bisacodyl (Dulcolax Supp) 10 mg DAILY PRN [place] CONSTIPATION; Start 06/30/16 at 16 :30 Pantoprazole (Protonix Iv) 40 mg DAILY@06 IV Last administered on 07/18/16 06: 30; Admin Dose 40 MG; Start 07/01/16 at 06:00 Metoclopramide HCl 10 mg 10 mg Q6 IV Last administered on 07/18/16 06:30; Admin Dose 10 MG; Start 07/03/16 at 18:00 Erythromycin Lactobionate/ Sodium Chloride (Erythromycin Lactobionate/NS) 100 ml @ 100 mls/hr Q6 IVPB Last administered on 07/18/16 06:30; Admin Dose 100 MLS/HR; Start 07/09/16 at 00:00 Methylprednisolone Sodium Succinate 40 mg 40 mg Q6 IV Last administered on 07/18 06:30; Admin Dose 40 MG; Start 07/12/16 at 13:30 Propofol 100 ml @ 2.1 mls/hr Q12H IV Last administered on 07/18/16 05:23; Admin Dose 13.86 MLS/HR; Start 07/12/16 at 21:00 Norepinephrine 16 mg/Dextrose 500 ml @ 1.87 mls/hr TITRATE IV Last administered on 07/13/16 13:43; Admin Dose 18.75 MLS/HR; Start 07/13/16 at 08: 00 Fluconazole/ Sodium Chloride (Diflucan 100 Mg/ NS (Pmx)) 50 ml @ 50 mls/hr Q24H IVPB Last administered on 07/17/16 10:34; Admin Dose 50 MLS/HR; Start at 11:00 Albuterol (Ventolin Hfa) 2 puff Q4H PRN INH SHORTNESS OF BREATH Last administered on 07/17/16 03:50; Admin Dose 2 PUFF; Start 07/14/16 at 22:00 Ipratropium [place] 4 puff 4 puff Q4H PRN INH SHORTNESS OF BREATH Last administered on 07/17/16 03:50; Admin Dose 4 PUFF; Start 07/14/16 at 22:00 Meropenem (Merrem 500 Mg/ 100 ml (Pmx)) 100 ml @ 200 mls/hr Q24H IVPB Last administered on 07/17/16 21:29; Admin Dose 200 MLS/HR; Start 07/16/16 at 21:00 DARBY KNOWLES MD July 18, 2016 08:14
--- NOTE | 2016-07-18 09:41 | PN ---
Date/Time of Note Date/Time of Note DATE: 07/18/16 TIME: 09:22 Assessment/Plan VTE Prophylaxis VTE Prophylaxis Intervention: heparin Lines/Catheters IV [facility] deja Urinary Cath still in place: Yes Reason Cath still needed: other (indicate) Assessment/Plan Assessment/Plan 60 year old male with metastatic urothelial cancer who had presented during the last admission with gastric outlet obstruction status post duodenal stent . Has since been diagnosed with metastatic urothelial cancer Patient now readmitted with sepsis with abdominal pain. He is currently in critical condition, intubated in the ICU 1. Septic Shock 2/2 Aspiration PNA 2. Transaminitis with Hyperbilirubinemia 2nd biliary obstruction from metastatic cancer 3. Metastatic Urothelial cancer with possible carcinomatosis 4. Tumor Obstructed duodenum with gastric outlet obstruction s/p duodenal stent 06/02/16 and with new ERCP showing tumor eroding stent and completely obstructing lumen 5. Steatosis 6. Acute Respiratory Failure secondary to aspiration pneumonia 7. Acute kidney injury secondary to acute tubular necrosis from septic shock and also contributing vancomycin requiring HD 8. S/p ecoli bacteremia and pseudomonas UTI 9. Chelsy UTI on fluconazole PLAN: * Continue ICU ventilator weaning and management * Continue abx for bilateral pneumonia * Not a candidate for chemo at this time * Continue HD for CHARITY and pulm fluid overload * Palliative care consulting on the case / group home prognosis poor * To be started on TPN per pulm as no feeds for now per GI * Patient remains on steroids as well * Add heparin for prophylaxis CRITICAL CARE TIME: >35 mins Prophylaxis: SCDs Subjective 24 Hr Interval Summary Free Text/Dictation * Patient seen and examined. * Intubated and sedated for comfort, but no pressor support. * failed CPAP trials yesterday * Currently on HD / possible repeat CPAP today after HD Exam/Review of Systems Vital Signs Vitals Vital Signs Date Time Temp Pulse Resp B/P Pulse Ox O2 Delivery O2 Flow Rate FiO2 07/18/16 07:00 73 24 105/76 93 Mechanical Ventilator 07/18/16 05:45 45 07/18/16 03:30 98.2 Intake and Output 07/17/16 07/17/16 07/18/16 15:00 23:00 07:00 Intake Total 963.4 ml 1111.4 ml 528 ml Output Total 25 ml 0 ml 0 ml Balance 938.4 ml 1111.4 ml 528 ml Exam Constitutional: alert despite propofol / lethargic / follows commands / responds to greetings ENMT: intubated Respiratory: clear to auscultation / diminished Cardiovascular: regular rate and rhythm Gastrointestinal: soft, No distended Musculoskeletal: Daniel edema pitting Genitourinary - Male: No nl scrotum (severe scrotal edema) Results Result Diagram: 07/18/16 0526 07/18/16 0526 Results 24 hrs Laboratory Tests Test 07/18/16 05:00 07/18/16 05:26 Blood Gas Specimen Source Blood arterial Arterial Blood Date Drawn 07/18/2016 5:13:44 AM Arterial Blood pH (Temp corrected) 7.348 L Arterial Blood pCO2 (Temp correct) 32.1 L Arterial Blood pO2 (Temp corrected) 86.0 Arterial Blood HCO3 17.2 L Arterial Blood Base Excess -7.3 L Arterial Blood Oxygen Saturation 96.0 Og Test ACCEPTAB Arterial Blood Gas Puncture Site Right Radial Arterial Blood Carboxyhemoglobin 0.1 Arterial Blood Methemoglobin 0.4 Blood Gas A-a O2 Differential 198.3 H Oxyhemoglobin Percent 95.5 Total Hemoglobin 13.7 Blood Gas Temperature 37.0 Blood Gas Respiration Rate 4.0 Blood Gas Actual Respiration Rate 25 Blood Gas Modality VENT - SIMV FiO2 45.0 Blood Gas Tidal Volume 600.0 Blood Gas Low PEEP Setting 5.0 Blood Gas Inspiratory Pressure 16.0 Blood Gas Pressure Support 10 Blood Gas Notified Whom BR Blood Gas Notified Time 07/18/2016 5:19:16 AM White Blood Count 9.6 Red Blood Count 4.23 L Hemoglobin 13.0 L Hematocrit 38.0 L Mean Corpuscular Volume 89.8 Mean Corpuscular Hemoglobin 30.7 Mean Corpuscular Hemoglobin Concent 34.2 Red Cell Distribution Width 18.1 H Platelet Count 134 L Mean Platelet Volume 10.5 H Neutrophils % 89.7 H Lymphocytes % 3.6 L Monocytes % 4.4 Eosinophils % 0.0 Basophils % 0.1 Nucleated Red Blood Cells % 0.5 H Neutrophils # 8.6 H Lymphocytes # 0.3 L Monocytes # 0.4 Eosinophils # 0.0 Basophils # 0.0 Nucleated Red Blood Cells # 0.1 H Sodium Level 137 Potassium Level 5.8 H Chloride Level 113 H Carbon Dioxide Level 16 L Anion Gap 14 Blood Urea Nitrogen 74 H Creatinine 2.97 H Glucose Level 170 Calcium Level 7.8 L Total Bilirubin 4.1 H Direct Bilirubin 3.70 H Indirect Bilirubin 0.4 Aspartate Amino Transf (AST/SGOT) 85 H Alanine Aminotransferase (ALT/SGPT) 95 H Alkaline Phosphatase 173 H Total Protein 5.2 L Albumin 2.2 L Globulin 3.00 Albumin/Globulin Ratio 0.73 Medications Medications Current Medications Potassium Chloride/Sodium Chloride (NS-KCl 20 Meq) 1,000 ml @ 100 mls/hr Q10H IV Last administered on 07/18/16 05:24; Admin Dose 100 MLS/HR; Start 06/30/16 at 16:18 Ondansetron HCl (Zofran Inj) 4 mg Q6H PRN IV NAUSEA AND/OR VOMITING Last administered on 07/12/16 03:27; Admin Dose 4 MG; Start 06/30/16 at 16:30 Acetaminophen (Tylenol Tab) 650 mg Q6H PRN PO PAIN LEVEL 1-3 OR FEVER Last administered on 07/05/16 19:31; Admin Dose 650 MG; Start 06/30/16 at 16:30 Acetaminophen (Tylenol Supp) 650 mg Q6H PRN [place] PAIN LEVEL 1-3 OR FEVER; Start 06/30/16 at 16:30 Acetaminophen/ Hydrocodone Bitart ([place] (5/325)) 1 tab Q6H PRN PO MODERATE PAIN LEVEL 4-6 Last administered on 07/18/16 00:29; Admin Dose 1 TAB; Start at 16:30 Acetaminophen/ Hydrocodone Bitart ([place] (5/325)) 2 tab Q6H PRN PO SEVERE PAIN LEVEL 7-10 Last administered on 07/10/16 13:15; Admin Dose 2 TAB; Start at 16:30 Morphine Sulfate (morphine) 2 mg Q4H PRN IV SEVERE PAIN LEVEL 7-10 Last administered on 07/17/16 22:36; Admin Dose 2 MG; Start 06/30/16 at 16:30 Docusate Sodium (Colace) 100 mg Q12H PRN PO CONSTIPATION; Start 06/30/16 at 16: 30 Magnesium Hydroxide (Milk Of Mag) 30 ml DAILY PRN PO CONSTIPATION; Start at 16:30 Bisacodyl (Dulcolax Supp) 10 mg DAILY PRN [place] CONSTIPATION; Start 06/30/16 at 16 :30 Pantoprazole (Protonix Iv) 40 mg DAILY@06 IV Last administered on 07/18/16 06: 30; Admin Dose 40 MG; Start 07/01/16 at 06:00 Metoclopramide HCl 10 mg 10 mg Q6 IV Last administered on 07/18/16 06:30; Admin Dose 10 MG; Start 07/03/16 at 18:00 Erythromycin Lactobionate/ Sodium Chloride (Erythromycin Lactobionate/NS) 100 ml @ 100 mls/hr Q6 IVPB Last administered on 07/18/16 06:30; Admin Dose 100 MLS/HR; Start 07/09/16 at 00:00 Methylprednisolone Sodium Succinate 40 mg 40 mg Q6 IV Last administered on 07/18 06:30; Admin Dose 40 MG; Start 07/12/16 at 13:30 Propofol 100 ml @ 2.1 mls/hr Q12H IV Last administered on 07/18/16 05:23; Admin Dose 13.86 MLS/HR; Start 07/12/16 at 21:00 Norepinephrine 16 mg/Dextrose 500 ml @ 1.87 mls/hr TITRATE IV Last administered on 07/13/16 13:43; Admin Dose 18.75 MLS/HR; Start 07/13/16 at 08: 00 Fluconazole/ Sodium Chloride (Diflucan 100 Mg/ NS (Pmx)) 50 ml @ 50 mls/hr Q24H IVPB Last administered on 07/17/16 10:34; Admin Dose 50 MLS/HR; Start at 11:00 Albuterol (Ventolin Hfa) 2 puff Q4H PRN INH SHORTNESS OF BREATH Last administered on 07/17/16 03:50; Admin Dose 2 PUFF; Start 07/14/16 at 22:00 Ipratropium [place] 4 puff 4 puff Q4H PRN INH SHORTNESS OF BREATH Last administered on 07/17/16 03:50; Admin Dose 4 PUFF; Start 07/14/16 at 22:00 Meropenem (Merrem 500 Mg/ 100 ml (Pmx)) 100 ml @ 200 mls/hr Q24H IVPB Last administered on 07/17/16 21:29; Admin Dose 200 MLS/HR; Start 07/16/16 at 21:00 Procedures Procedures PROCEDURE: XR Chest. CLINICAL INDICATION: Shortness of breath. TECHNIQUE: Single frontal view. COMPARISON: 07/17/2016. FINDINGS: The endotracheal tube, nasogastric tube, left internal jugular vein temporary dialysis catheter, and right internal jugular vein implanted port central venous catheter remain in satisfactory position. There is patchy air space disease throughout the left lung consistent with asymmetric pulmonary edema or pneumonia, worse than seen previously. There is left basilar atelectasis or pneumonia, also worse than seen previously. The heart is enlarged. There is no pleural effusion. There is no pneumothorax. IMPRESSION: 1. Worse appearance of the lungs. 2. No other change from 07/17/2016. RPTAT: QQ .Naldo Oneal MD, MD Date Time Electronically viewed and signed by .Naldo Oneal MD, MD on 07/18/2016 08:13 .R/ CC: PARDEEP CORRAL MD, BOLAT[place] M. July 18, 2016 09:33
[2016-07-18] MEDS ORDERED: ALBUMIN HUMAN 25% 100 ML IV ONE (10:00)
--- NOTE | 2016-07-18 10:03 | CONS ---
Date/Time of Note Date/Time of Note DATE: 07/18/16 TIME: 09:59 Assessment/Plan Assessment/Plan Additional Assessment/Plan Chest x-ray was reviewed from today which is again showing infiltrative changes in left lung. Next Ventilator settings; SIMV of 4, pressure support of 10, PEEP of 5, 45% FiO2. Patient currently on propofol at 40 mics per kilogram per minute. Assessment recommendations; 1. Patient admitted with gastric outlet obstruction then developed aspiration pneumonia involving the left hand requiring intubation. 2. Metastatic uroepithelial cancer. 3. Renal failure, now requiring hemodialysis. Patient failed a CPAP trial yesterday however I would give another CPAP trial today. Meanwhile Solu-Medrol has been discontinued. Patient will need to be started on TPN. Continue current treatment. Prognosis is guarded. 35 minutes of critical care time was spent evaluating the patient. Consultation Date/Type/Reason Admit Date/Time Jun 30, 2016 at 15:42 Initial Consult Date 07/12/16 Type of Consultation: Pulmonary/critical care Referring Provider: GAMALIEL HAIR MD 24 HR Interval Summary Free Text/Dictation Patient's condition remains critical. However patient is tolerating SIMV mode at a rate of 4 some extent. Has remained hemodynamically stable. Next General exam; elderly male, orally intubated, sedated. Currently in no distress. Exam/Review of Systems Vital Signs Vitals Vital Signs Date Time Temp Pulse Resp B/P Pulse Ox O2 Delivery O2 Flow Rate FiO2 07/18/16 09:35 84 07/18/16 09:16 38 100 45 07/18/16 07:00 105/76 Mechanical Ventilator 07/18/16 03:30 98.2 Intake and Output 07/17/16 07/17/16 07/18/16 15:00 23:00 07:00 Intake Total 963.4 ml 1111.4 ml 528 ml Output Total 25 ml 0 ml 0 ml Balance 938.4 ml 1111.4 ml 528 ml Exam HEENT exam; supple neck, no JVD. No lymphadenopathy. Midline trachea. No thyromegaly. Orally intubated. Dentition is fair. Pupils are midsize and reactive to light bilaterally. Next Chest examination; clear to auscultation. S1-S2 audible, no murmurs. Regular rhythm. Abdomen examination; soft, not distended. Bowel sounds audible. No organomegaly. Extremity exam; 2+ generalized anasarca. Next PEDIATRIC ONCOLOGIST examination; patient is completely awake and alert. Follows commands and moves all 4 extremities. Results Result Diagram: 07/18/16 0526 07/18/16525 Results 24 hrs Laboratory Tests Test 07/18/16 05:00 07/18/16 05:26 Blood Gas Specimen Source Blood arterial Arterial Blood Date Drawn 07/18/2016 5:13:44 AM Arterial Blood pH (Temp corrected) 7.348 L Arterial Blood pCO2 (Temp correct) 32.1 L Arterial Blood pO2 (Temp corrected) 86.0 Arterial Blood HCO3 17.2 L Arterial Blood Base Excess -7.3 L Arterial Blood Oxygen Saturation 96.0 Og Test ACCEPTAB Arterial Blood Gas Puncture Site Right Radial Arterial Blood Carboxyhemoglobin 0.1 Arterial Blood Methemoglobin 0.4 Blood Gas A-a O2 Differential 198.3 H Oxyhemoglobin Percent 95.5 Total Hemoglobin 13.7 Blood Gas Temperature 37.0 Blood Gas Respiration Rate 4.0 Blood Gas Actual Respiration Rate 25 Blood Gas Modality VENT - SIMV FiO2 45.0 Blood Gas Tidal Volume 600.0 Blood Gas Low PEEP Setting 5.0 Blood Gas Inspiratory Pressure 16.0 Blood Gas Pressure Support 10 Blood Gas Notified Whom BR Blood Gas Notified Time 07/18/2016 5:19:16 AM White Blood Count 9.6 Red Blood Count 4.23 L Hemoglobin 13.0 L Hematocrit 38.0 L Mean Corpuscular Volume 89.8 Mean Corpuscular Hemoglobin 30.7 Mean Corpuscular Hemoglobin Concent 34.2 Red Cell Distribution Width 18.1 H Platelet Count 134 L Mean Platelet Volume 10.5 H Neutrophils % 89.7 H Lymphocytes % 3.6 L Monocytes % 4.4 Eosinophils % 0.0 Basophils % 0.1 Nucleated Red Blood Cells % 0.5 H Neutrophils # 8.6 H Lymphocytes # 0.3 L Monocytes # 0.4 Eosinophils # 0.0 Basophils # 0.0 Nucleated Red Blood Cells # 0.1 H Sodium Level 137 Potassium Level 5.8 H Chloride Level 113 H Carbon Dioxide Level 16 L Anion Gap 14 Blood Urea Nitrogen 74 H Creatinine 2.97 H Glucose Level 170 Calcium Level 7.8 L Total Bilirubin 4.1 H Direct Bilirubin 3.70 H Indirect Bilirubin 0.4 Aspartate Amino Transf (AST/SGOT) 85 H Alanine Aminotransferase (ALT/SGPT) 95 H Alkaline Phosphatase 173 H Total Protein 5.2 L Albumin 2.2 L Globulin 3.00 Albumin/Globulin Ratio 0.73 Medications Medications Current Medications Potassium Chloride/Sodium Chloride (NS-KCl 20 Meq) 1,000 ml @ 100 mls/hr Q10H IV Last administered on 07/18/16 05:24; Admin Dose 100 MLS/HR; Start 06/30/16 at 16:18 Ondansetron HCl (Zofran Inj) 4 mg Q6H PRN IV NAUSEA AND/OR VOMITING Last administered on 07/12/16 03:27; Admin Dose 4 MG; Start 06/30/16 at 16:30 Acetaminophen (Tylenol Tab) 650 mg Q6H PRN PO PAIN LEVEL 1-3 OR FEVER Last administered on 07/05/16 19:31; Admin Dose 650 MG; Start 06/30/16 at 16:30 Acetaminophen (Tylenol Supp) 650 mg Q6H PRN [place] PAIN LEVEL 1-3 OR FEVER; Start 06/30/16 at 16:30 Acetaminophen/ Hydrocodone Bitart ([place] (5/325)) 1 tab Q6H PRN PO MODERATE PAIN LEVEL 4-6 Last administered on 07/18/16 00:29; Admin Dose 1 TAB; Start at 16:30 Acetaminophen/ Hydrocodone Bitart ([place] (5/325)) 2 tab Q6H PRN PO SEVERE PAIN LEVEL 7-10 Last administered on 07/10/16 13:15; Admin Dose 2 TAB; Start at 16:30 Morphine Sulfate (morphine) 2 mg Q4H PRN IV SEVERE PAIN LEVEL 7-10 Last administered on 07/17/16 22:36; Admin Dose 2 MG; Start 06/30/16 at 16:30 Docusate Sodium (Colace) 100 mg Q12H PRN PO CONSTIPATION; Start 06/30/16 at 16: 30 Magnesium Hydroxide (Milk Of Mag) 30 ml DAILY PRN PO CONSTIPATION; Start at 16:30 Bisacodyl (Dulcolax Supp) 10 mg DAILY PRN [place] CONSTIPATION; Start 06/30/16 at 16 :30 Pantoprazole (Protonix Iv) 40 mg DAILY@06 IV Last administered on 07/18/16 06: 30; Admin Dose 40 MG; Start 07/01/16 at 06:00 Metoclopramide HCl 10 mg 10 mg Q6 IV Last administered on 07/18/16 06:30; Admin Dose 10 MG; Start 07/03/16 at 18:00 Erythromycin Lactobionate 250 mg/Sodium Chloride 100 ml @ 100 mls/hr Q6 IVPB Last administered on 07/18/16 06:30; Admin Dose 100 MLS/HR; Start 07/09/16 at 00 :00 Propofol 100 ml @ 2.1 mls/hr Q12H IV Last administered on 07/18/16 05:23; Admin Dose 13.86 MLS/HR; Start 07/12/16 at 21:00 Norepinephrine 16 mg/Dextrose 500 ml @ 1.87 mls/hr TITRATE IV Last administered on 07/13/16 13:43; Admin Dose 18.75 MLS/HR; Start 07/13/16 at 08: 00 Fluconazole/ Sodium Chloride (Diflucan 100 Mg/ NS (Pmx)) 50 ml @ 50 mls/hr Q24H IVPB Last administered on 07/17/16 10:34; Admin Dose 50 MLS/HR; Start at 11:00 Albuterol (Ventolin Hfa) 2 puff Q4H PRN INH SHORTNESS OF BREATH Last administered on 07/17/16 03:50; Admin Dose 2 PUFF; Start 07/14/16 at 22:00 Ipratropium [place] 4 puff 4 puff Q4H PRN INH SHORTNESS OF BREATH Last administered on 07/17/16 03:50; Admin Dose 4 PUFF; Start 07/14/16 at 22:00 Meropenem 100 ml @ 200 mls/hr Q24H IVPB Last administered on 07/17/16 21:29; Admin Dose 200 MLS/HR; Start 07/16/16 at 21:00 Albumin Human (Albumin Human 25%) 100 ml @ 100 mls/hr ONCE ONCE IV Last administered on 07/18/16 09:57; Admin Dose 100 MLS/HR; Start 07/18/16 at 10:00 ; Stop 07/18/16 at 10:59 Heparin Sodium (Porcine) (Heparin (5000 Units/0.5 ml)) 5,000 unit BID SC ; Start 07/18/16 at 21:[address] July 18, 2016 10:03
--- NOTE | 2016-07-18 10:09 | CONS ---
Date/Time of Note Date/Time of Note DATE: 07/18/16 TIME: 10:08 Assessment/Plan Assessment/Plan Additional Assessment/Plan 1. Acute fluid overload with anasarca. 2. Acute kidney injury secondary to acute tubular necrosis from septic shock and also contributing vancomycin. 3. Metabolic acidosis secondary to acute renal failure. 4. 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 5. Septic shock secondary to aspiration pneumonia and gastric outlet obstruction, status post duodenal stent placement. 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 Consultation Date/Type/Reason Admit Date/Time Jun 30, 2016 at 15:42 Initial Consult Date 07/14/16 Type of Consultation: NEPHROLOGY Reason for Consultation Acute renal failure with fluid overload, started on HD Referring Provider: GAMALIEL HAIR MD 24 HR Interval Summary Free Text/Dictation remains intubated, Bp stable, getting HD now Exam/Review of Systems Vital Signs Vitals Vital Signs Date Time Temp Pulse Resp B/P Pulse Ox O2 Delivery O2 Flow Rate FiO2 07/18/16 09:50 78 07/18/16 09:16 38 100 45 07/18/16 07:00 105/76 Mechanical Ventilator 07/18/16 03:30 98.2 Intake and Output 07/17/16 07/17/16 07/18/16 15:00 23:00 07:00 Intake Total 963.4 ml 1111.4 ml 528 ml Output Total 25 ml 0 ml 0 ml Balance 938.4 ml 1111.4 ml 528 ml Exam Constitutional: non-verbal Respiratory: bibasilar crackles , no wheezing Cardiovascular: regular rate and rhythm Gastrointestinal: soft, No distended Musculoskeletal: nl extremities to inspection + deja HD catheter Results Result Diagram: 07/18/16 0526 07/18/16 0526 Results 24 hrs Laboratory Tests Test 07/18/16 05:00 07/18/16 05:26 Blood Gas Specimen Source Blood arterial Arterial Blood Date Drawn 07/18/2016 5:13:44 AM Arterial Blood pH (Temp corrected) 7.348 L Arterial Blood pCO2 (Temp correct) 32.1 L Arterial Blood pO2 (Temp corrected) 86.0 Arterial Blood HCO3 17.2 L Arterial Blood Base Excess -7.3 L Arterial Blood Oxygen Saturation 96.0 Og Test ACCEPTAB Arterial Blood Gas Puncture Site Right Radial Arterial Blood Carboxyhemoglobin 0.1 Arterial Blood Methemoglobin 0.4 Blood Gas A-a O2 Differential 198.3 H Oxyhemoglobin Percent 95.5 Total Hemoglobin 13.7 Blood Gas Temperature 37.0 Blood Gas Respiration Rate 4.0 Blood Gas Actual Respiration Rate 25 Blood Gas Modality VENT - SIMV FiO2 45.0 Blood Gas Tidal Volume 600.0 Blood Gas Low PEEP Setting 5.0 Blood Gas Inspiratory Pressure 16.0 Blood Gas Pressure Support 10 Blood Gas Notified Whom BR Blood Gas Notified Time 07/18/2016 5:19:16 AM White Blood Count 9.6 Red Blood Count 4.23 L Hemoglobin 13.0 L Hematocrit 38.0 L Mean Corpuscular Volume 89.8 Mean Corpuscular Hemoglobin 30.7 Mean Corpuscular Hemoglobin Concent 34.2 Red Cell Distribution Width 18.1 H Platelet Count 134 L Mean Platelet Volume 10.5 H Neutrophils % 89.7 H Lymphocytes % 3.6 L Monocytes % 4.4 Eosinophils % 0.0 Basophils % 0.1 Nucleated Red Blood Cells % 0.5 H Neutrophils # 8.6 H Lymphocytes # 0.3 L Monocytes # 0.4 Eosinophils # 0.0 Basophils # 0.0 Nucleated Red Blood Cells # 0.1 H Sodium Level 137 Potassium Level 5.8 H Chloride Level 113 H Carbon Dioxide Level 16 L Anion Gap 14 Blood Urea Nitrogen 74 H Creatinine 2.97 H Glucose Level 170 Calcium Level 7.8 L Total Bilirubin 4.1 H Direct Bilirubin 3.70 H Indirect Bilirubin 0.4 Aspartate Amino Transf (AST/SGOT) 85 H Alanine Aminotransferase (ALT/SGPT) 95 H Alkaline Phosphatase 173 H Total Protein 5.2 L Albumin 2.2 L Globulin 3.00 Albumin/Globulin Ratio 0.73 Medications Medications Current Medications Potassium Chloride/Sodium Chloride (NS-KCl 20 Meq) 1,000 ml @ 100 mls/hr Q10H IV Last administered on 07/18/16t 05:24; Admin Dose 100 MLS/HR; Start 06/30/16 at 16:18 Ondansetron HCl (Zofran Inj) 4 mg Q6H PRN IV NAUSEA AND/OR VOMITING Last administered on 07/12/16 03:27; Admin Dose 4 MG; Start 06/30/16 at 16:30 Acetaminophen (Tylenol Tab) 650 mg Q6H PRN PO PAIN LEVEL 1-3 OR FEVER Last administered on 07/05/16 19:31; Admin Dose 650 MG; Start 06/30/16 at 16:30 Acetaminophen (Tylenol Supp) 650 mg Q6H PRN [place] PAIN LEVEL 1-3 OR FEVER; Start 06/30/16 at 16:30 Acetaminophen/ Hydrocodone Bitart ([place] (5/325)) 1 tab Q6H PRN PO MODERATE PAIN LEVEL 4-6 Last administered on 07/18/16 00:29; Admin Dose 1 TAB; Start at 16:30 Acetaminophen/ Hydrocodone Bitart ([place] (5/325)) 2 tab Q6H PRN PO SEVERE PAIN LEVEL 7-10 Last administered on 07/10/16 13:15; Admin Dose 2 TAB; Start at 16:30 Morphine Sulfate (morphine) 2 mg Q4H PRN IV SEVERE PAIN LEVEL 7-10 Last administered on 07/17/16 22:36; Admin Dose 2 MG; Start 06/30/16 at 16:30 Docusate Sodium (Colace) 100 mg Q12H PRN PO CONSTIPATION; Start 06/30/16 at 16: 30 Magnesium Hydroxide (Milk Of Mag) 30 ml DAILY PRN PO CONSTIPATION; Start at 16:30 Bisacodyl (Dulcolax Supp) 10 mg DAILY PRN [place] CONSTIPATION; Start 06/30/16 at 16 :30 Pantoprazole (Protonix Iv) 40 mg DAILY@06 IV Last administered on 07/18/16 06: 30; Admin Dose 40 MG; Start 07/01/16 at 06:00 Metoclopramide HCl 10 mg 10 mg Q6 IV Last administered on 07/18/16 06:30; Admin Dose 10 MG; Start 07/03/16 at 18:00 Erythromycin Lactobionate 250 mg/Sodium Chloride 100 ml @ 100 mls/hr Q6 IVPB Last administered on 07/18/16 06:30; Admin Dose 100 MLS/HR; Start 07/09/16 at 00 :00 Propofol 100 ml @ 2.1 mls/hr Q12H IV Last administered on 07/18/16 05:23; Admin Dose 13.86 MLS/HR; Start 07/12/16 at 21:00 Norepinephrine 16 mg/Dextrose 500 ml @ 1.87 mls/hr TITRATE IV Last administered on 07/13/16 13:43; Admin Dose 18.75 MLS/HR; Start 07/13/16 at 08: 00 Fluconazole/ Sodium Chloride (Diflucan 100 Mg/ NS (Pmx)) 50 ml @ 50 mls/hr Q24H IVPB Last administered on 07/17/16 10:34; Admin Dose 50 MLS/HR; Start at 11:00 Albuterol (Ventolin Hfa) 2 puff Q4H PRN INH SHORTNESS OF BREATH Last administered on 07/17/16 03:50; Admin Dose 2 PUFF; Start 07/14/16 at 22:00 Ipratropium [place] 4 puff 4 puff Q4H PRN INH SHORTNESS OF BREATH Last administered on 07/17/16 03:50; Admin Dose 4 PUFF; Start 07/14/16 at 22:00 Meropenem 100 ml @ 200 mls/hr Q24H IVPB Last administered on 07/17/16 21:29; Admin Dose 200 MLS/HR; Start 07/16/16 at 21:00 Albumin Human (Albumin Human 25%) 100 ml @ 100 mls/hr ONCE ONCE IV Last administered on 07/18/16 09:57; Admin Dose 100 MLS/HR; Start 07/18/16 at 10:00 ; Stop 07/18/16 at 10:59 Heparin Sodium (Porcine) (Heparin (5000 Units/0.5 ml)) 5,000 unit BID SC ; Start 07/18/16 at 21:00 SHANAE LEWIS MD July 18, 2016 10:09
--- NOTE | 2016-07-18 11:07 | PN ---
Date/Time of Note Date/Time of Note DATE: 07/16/16 TIME: 11:07 Assessment/Plan Lines/Catheters IV Catheter Type (from [facility]): deja [place] in Place (from [facility]): Yes Assessment/Plan Chief Complaint/Hosp Course 1. Sepsis 2nd biliary obstruction s/p attempted unsuccessful ERCP 07/03. s/p PTC 07/05. s/p EGD showing tumor growing over stent and causing obstruction 07/12. Aspiration pneumonia s/p intubation 07/12. -abx -ivf -supportive care -Drain -Vent management and pulmonary toilette -Chemo [place] after infection controlled 2. Transaminitis with Hyperbilirubinemia ? 2nd biliary obstruction ? 2nd tumor s /p PTC 07/05 -as above 3. Metastatic Urothelial cancer with ? carcinomatosis -heme/onc for tx after sepsis resolution 4. Hx obstructed duodenum with gastric outlet obstruction s/p duodenal stent. Now with hiccups and difficulty eating. s/p EGD showing tumor growing over stent and causing obstruction 07/12 -Chemo [place] if possible 5. Steatosis -Eventual nutrition and lifestyle optimization 6. Weight loss probably secondary to above -As above Thank you, Late entry 07/16 Problems: Subjective 24 Hr Interval Summary Remains intubated 2nd aspiration pna 07/12. s/p EGD 07/12 > tumor growing over stent and causing obstruction. s/p PTC 07/05. No f/c. No abdominal pain. No chest pain. No cough. No seizure. No headache, visual, or neurologic changes. No dysuria. Exam/Review of Systems Vital Signs Vitals Vital Signs Date Time Temp Pulse Resp B/P Pulse Ox O2 Delivery O2 Flow Rate FiO2 07/18/16 10:20 76 07/18/16 09:16 38 100 45 07/18/16 07:00 105/76 Mechanical Ventilator 07/18/16 03:30 98.2 Intake and Output 07/17/16 07/17/16 07/18/16 14:59 22:59 06:59 Intake Total 1050.8 ml 1108.0 ml 628 ml Output Total 45 ml 0 ml 0 ml Balance 1005.8 ml 1108.0 ml 628 ml Exam Free Text/Dictation Constitutional: Intubated Psych: Ventilated Head: atraumatic, normocephalic Eyes: EOMI, PERRL, nl conjunctiva, icterus ENMT: mucosa pink and moist, nl external ears & nose, nl lips & teeth Neck: non-tender, supple, No jvd, No masses Respiratory: normal air movement, No congested cough, No labored breathing Cardiovascular: regular rate and rhythm, No edema Gastrointestinal: NT, soft, No distended, No rebound or guarding Genitourinary - Male: nl scrotum Musculoskeletal: nl extremities to inspection, nl gait and stance, No joint tenderness Extremities: normal pulses, No calf tenderness, No cyanosis Neurological: nl mental status, nl speech, nl strength Skin: nl turgor, jaundice. No diaphoresis, No rash or lesions Lymph: No nl lymph nodes (Inguinal) Results Result Diagram: 07/18/16 0526 07/18/16 0526 DIAMOND FITZGERALD MD July 18, 2016 11:07
--- NOTE | 2016-07-18 11:09 | PN ---
Date/Time of Note Date/Time of Note DATE: 07/17/16 TIME: 11:07 Assessment/Plan Lines/Catheters IV Catheter Type (from [facility]): deja Langley in Place (from [facility]): Yes Assessment/Plan Chief Complaint/Hosp Course 1. Sepsis 2nd biliary obstruction s/p attempted unsuccessful ERCP 07/03. s/p PTC 07/05. s/p EGD showing tumor growing over stent and causing obstruction 07/12. Aspiration pneumonia s/p intubation 07/12. -abx -ivf -supportive care -Drain -Vent management and pulmonary toilette -Chemo [place] after infection controlled 2. Transaminitis with Hyperbilirubinemia ? 2nd biliary obstruction ? 2nd tumor s /p PTC 07/05 -as above 3. Metastatic Urothelial cancer with ? carcinomatosis -heme/onc for tx after sepsis resolution 4. Hx obstructed duodenum with gastric outlet obstruction s/p duodenal stent. Now with hiccups and difficulty eating. s/p EGD showing tumor growing over stent and causing obstruction 07/12 -Chemo [place] if possible 5. Steatosis -Eventual nutrition and lifestyle optimization 6. Weight loss probably secondary to above -As above Thank you, Late entry 07/17 Problems: Subjective 24 Hr Interval Summary Remains intubated 2nd aspiration pna 07/12. s/p EGD 07/12 > tumor growing over stent and causing obstruction. s/p PTC 07/05. No f/c. No cough. No seizure. No blood per mouth/rectum. No bloating. No rashes. Exam/Review of Systems Vital Signs Vitals Vital Signs Date Time Temp Pulse Resp B/P Pulse Ox O2 Delivery O2 Flow Rate FiO2 07/18/16 10:20 76 07/18/16 09:16 38 100 45 07/18/16 07:00 105/76 Mechanical Ventilator 07/18/16 03:30 98.2 Intake and Output 07/17/16 07/17/16 07/18/16 14:59 22:59 06:59 Intake Total 1050.8 ml 1108.0 ml 628 ml Output Total 45 ml 0 ml 0 ml Balance 1005.8 ml 1108.0 ml 628 ml Exam Free Text/Dictation Constitutional: Intubated Psych: Ventilated Head: atraumatic, normocephalic Eyes: EOMI, PERRL, nl conjunctiva, icterus ENMT: mucosa pink and moist, nl external ears & nose, nl lips & teeth Neck: non-tender, supple, No jvd, No masses Respiratory: normal air movement, No congested cough, No labored breathing Cardiovascular: regular rate and rhythm, No edema Gastrointestinal: NT, soft, No distended, No rebound or guarding Genitourinary - Male: nl scrotum Musculoskeletal: nl extremities to inspection, nl gait and stance, No joint tenderness Extremities: normal pulses, No calf tenderness, No cyanosis Neurological: nl mental status, nl speech, nl strength Skin: nl turgor, jaundice. No diaphoresis, No rash or lesions Lymph: No nl lymph nodes (Inguinal) Results Result Diagram: 07/18/16 0526 07/18/16 0526 DIAMOND FITZGERALD MD July 18, 2016 11:09
--- NOTE | 2016-07-18 11:09 | PN ---
Date/Time of Note Date/Time of Note DATE: 07/18/16 TIME: 11:09 Assessment/Plan Lines/Catheters IV Catheter Type (from [facility]): deja Langley in Place (from [facility]): Yes Assessment/Plan Chief Complaint/Hosp Course 1. Sepsis 2nd biliary obstruction s/p attempted unsuccessful ERCP 07/03. s/p PTC 07/05. s/p EGD showing tumor growing over stent and causing obstruction 07/12. Aspiration pneumonia s/p intubation 07/12. -abx -ivf -supportive care -Drain -Vent management and pulmonary toilette -Chemo [place] after infection controlled 2. Transaminitis with Hyperbilirubinemia ? 2nd biliary obstruction ? 2nd tumor s /p PTC 07/05 -as above 3. Metastatic Urothelial cancer with ? carcinomatosis -heme/onc for tx after sepsis resolution 4. Hx obstructed duodenum with gastric outlet obstruction s/p duodenal stent. Now with hiccups and difficulty eating. s/p EGD showing tumor growing over stent and causing obstruction 07/12 -Chemo [place] if possible 5. Steatosis -Eventual nutrition and lifestyle optimization 6. Weight loss probably secondary to above -As above Thank you, Problems: Subjective 24 Hr Interval Summary Remains intubated 2nd aspiration pna 07/12. s/p EGD 07/12 > tumor growing over stent and causing obstruction. s/p PTC 07/05. No f/c. No cough. No seizure. No blood per mouth/rectum. No bloating. No rashes. Exam/Review of Systems Vital Signs Vitals Vital Signs Date Time Temp Pulse Resp B/P Pulse Ox O2 Delivery O2 Flow Rate FiO2 07/18/16 10:20 76 07/18/16 09:16 38 100 45 07/18/16 07:00 105/76 Mechanical Ventilator 07/18/16 03:30 98.2 Intake and Output 07/17/16 07/17/16 07/18/16 14:59 22:59 06:59 Intake Total 1050.8 ml 1108.0 ml 628 ml Output Total 45 ml 0 ml 0 ml Balance 1005.8 ml 1108.0 ml 628 ml Exam Free Text/Dictation Constitutional: Intubated Psych: Ventilated Head: atraumatic, normocephalic Eyes: EOMI, PERRL, nl conjunctiva, icterus ENMT: mucosa pink and moist, nl external ears & nose, nl lips & teeth Neck: non-tender, supple, No jvd, No masses Respiratory: normal air movement, No congested cough, No labored breathing Cardiovascular: regular rate and rhythm, No edema Gastrointestinal: NT, soft, No distended, No rebound or guarding Genitourinary - Male: nl scrotum Musculoskeletal: nl extremities to inspection, nl gait and stance, No joint tenderness Extremities: normal pulses, No calf tenderness, No cyanosis Neurological: nl mental status, nl speech, nl strength Skin: nl turgor, jaundice. No diaphoresis, No rash or lesions Lymph: No nl lymph nodes (Inguinal) Results Result Diagram: 07/18/16 0526 07/18/16 0526 DIAMOND FITZGERALD MD July 18, 2016 11:09
[2016-07-18] MEDS: FLUCONAZOLE 100 MG/NS (PMX) 50 ML IVPB SCH (11:56)
--- NOTE | 2016-07-18 12:47 | CONS ---
Date/Time of Note Date/Time of Note DATE: 07/18/16 TIME: 12:31 Assessment/Plan Assessment/Plan Chief Complaint/Hosp Course UBJECTIVE: No acute changes. The patient is awake, comfortable on vent, no fevers. INDWELLINGS: Endotracheal tube, NG tube, right upper chest Port-A-Cath, intra- abdominal drainage catheter, [place] and [place]. ANTIMICROBIALS: The patient is on: 1. Fluconazole. 2. IV Vancomycin. 3. IV erythromycin. 4. Meropenem. PHYSICAL EXAMINATION: GENERAL: Well-developed, fragile, elderly man who is awake, in no distress. HEENT: Head atraumatic, normocephalic. Sclerae anicteric. Buccal mucosa dry. NECK: Supple, trachea midline. CHEST: Rise symmetrical. Breath sounds clear. HEART: S1, S2. ABDOMEN: Soft, bowel tones present. EXTREMITIES: Without cyanosis. ASSESSMENT: 1. Sepsis with shock==> off pressors. 2. Acute respiratory failure secondary to acute aspiration event. 3. Pneumonia. 4. Escherichia coli bacteremia on admission. Repeat blood cultures negative. 5. Biliary obstruction, status post unsuccessful ERCP on 07/03/2016, PTC on 04/2016. 6. Status post EGD on 07/13/2016 that showed obstructing tumor growing over the stent. 7. Urinary tract infection, urine culture growing [place] albicans, Pseudomonas. 8. Acute renal failure, on hemodialysis. 9. Diabetic gastroparesis. 10 Metastatic urothelial cancer. PLAN: Stable. Repeat blood cultures negative. Continue abx. Follow oncology recommendations. WEaning trials per pulmonary, consider TPN DW RN/ at bedside Problems: Consultation Date/Type/Reason Admit Date/Time Jun 30, 2016 at 15:42 Initial Consult Date 06/30/16 Type of Consultation: ID Referring Provider: GAMALIEL HAIR MD Exam/Review of Systems Vital Signs Vitals Vital Signs Date Time Temp Pulse Resp B/P Pulse Ox O2 Delivery O2 Flow Rate FiO2 07/18/16 11:30 79 22 100 45 07/18/16 07:00 105/76 Mechanical Ventilator 07/18/16 03:30 98.2 Intake and Output 07/17/16 07/17/16 07/18/16 15:00 23:00 07:00 Intake Total 963.4 ml 1111.4 ml 528 ml Output Total 25 ml 0 ml 0 ml Balance 938.4 ml 1111.4 ml 528 ml Results Result Diagram: 07/18/16 0526 07/18/16 0526 Results 24 hrs Laboratory Tests Test 07/18/16 05:00 07/18/16 05:26 Blood Gas Specimen Source Blood arterial Arterial Blood Date Drawn 07/18/2016 5:13:44 AM Arterial Blood pH (Temp corrected) 7.348 L Arterial Blood pCO2 (Temp correct) 32.1 L Arterial Blood pO2 (Temp corrected) 86.0 Arterial Blood HCO3 17.2 L Arterial Blood Base Excess -7.3 L Arterial Blood Oxygen Saturation 96.0 Og Test ACCEPTAB Arterial Blood Gas Puncture Site Right Radial Arterial Blood Carboxyhemoglobin 0.1 Arterial Blood Methemoglobin 0.4 Blood Gas A-a O2 Differential 198.3 H Oxyhemoglobin Percent 95.5 Total Hemoglobin 13.7 Blood Gas Temperature 37.0 Blood Gas Respiration Rate 4.0 Blood Gas Actual Respiration Rate 25 Blood Gas Modality VENT - SIMV FiO2 45.0 Blood Gas Tidal Volume 600.0 Blood Gas Low PEEP Setting 5.0 Blood Gas Inspiratory Pressure 16.0 Blood Gas Pressure Support 10 Blood Gas Notified Whom BR Blood Gas Notified Time 07/18/2016 5:19:16 AM White Blood Count 9.6 Red Blood Count 4.23 L Hemoglobin 13.0 L Hematocrit 38.0 L Mean Corpuscular Volume 89.8 Mean Corpuscular Hemoglobin 30.7 Mean Corpuscular Hemoglobin Concent 34.2 Red Cell Distribution Width 18.1 H Platelet Count 134 L Mean Platelet Volume 10.5 H Neutrophils % 89.7 H Lymphocytes % 3.6 L Monocytes % 4.4 Eosinophils % 0.0 Basophils % 0.1 Nucleated Red Blood Cells % 0.5 H Neutrophils # 8.6 H Lymphocytes # 0.3 L Monocytes # 0.4 Eosinophils # 0.0 Basophils # 0.0 Nucleated Red Blood Cells # 0.1 H Sodium Level 137 Potassium Level 5.8 H Chloride Level 113 H Carbon Dioxide Level 16 L Anion Gap 14 Blood Urea Nitrogen 74 H Creatinine 2.97 H Glucose Level 170 Calcium Level 7.8 L Total Bilirubin 4.1 H Direct Bilirubin 3.70 H Indirect Bilirubin 0.4 Aspartate Amino Transf (AST/SGOT) 85 H Alanine Aminotransferase (ALT/SGPT) 95 H Alkaline Phosphatase 173 H Total Protein 5.2 L Albumin 2.2 L Globulin 3.00 Albumin/Globulin Ratio 0.73 Medications Medications Current Medications Potassium Chloride/Sodium Chloride (NS-KCl 20 Meq) 1,000 ml @ 100 mls/hr Q10H IV Last administered on 07/18/16 05:24; Admin Dose 100 MLS/HR; Start 06/30/16 at 16:18 Ondansetron HCl (Zofran Inj) 4 mg Q6H PRN IV NAUSEA AND/OR VOMITING Last administered on 07/12/16 03:27; Admin Dose 4 MG; Start 06/30/16 at 16:30 Acetaminophen (Tylenol Tab) 650 mg Q6H PRN PO PAIN LEVEL 1-3 OR FEVER Last administered on 07/05/16 19:31; Admin Dose 650 MG; Start 06/30/16 at 16:30 Acetaminophen (Tylenol Supp) 650 mg Q6H PRN [place] PAIN LEVEL 1-3 OR FEVER; Start 06/30/16 at 16:30 Acetaminophen/ Hydrocodone Bitart ([place] (5/325)) 1 tab Q6H PRN PO MODERATE PAIN LEVEL 4-6 Last administered on 07/18/16 00:29; Admin Dose 1 TAB; Start at 16:30 Acetaminophen/ Hydrocodone Bitart ([place] (5/325)) 2 tab Q6H PRN PO SEVERE PAIN LEVEL 7-10 Last administered on 07/10/16 13:15; Admin Dose 2 TAB; Start at 16:30 Morphine Sulfate (morphine) 2 mg Q4H PRN IV SEVERE PAIN LEVEL 7-10 Last administered on 07/17/16 22:36; Admin Dose 2 MG; Start 06/30/16 at 16:30 Docusate Sodium (Colace) 100 mg Q12H PRN PO CONSTIPATION; Start 06/30/16 at 16: 30 Magnesium Hydroxide (Milk Of Mag) 30 ml DAILY PRN PO CONSTIPATION; Start at 16:30 Bisacodyl (Dulcolax Supp) 10 mg DAILY PRN [place] CONSTIPATION; Start 06/30/16 at 16 :30 Pantoprazole (Protonix Iv) 40 mg DAILY@06 IV Last administered on 07/18/16 06: 30; Admin Dose 40 MG; Start 07/01/16 at 06:00 Metoclopramide HCl 10 mg 10 mg Q6 IV Last administered on 07/18/16 11:56; Admin Dose 10 MG; Start 07/03/16 at 18:00 Erythromycin Lactobionate 250 mg/Sodium Chloride 100 ml @ 100 mls/hr Q6 IVPB Last administered on 07/18/16 11:56; Admin Dose 100 MLS/HR; Start 07/09/16 at 00 :00 Propofol 100 ml @ 2.1 mls/hr Q12H IV Last administered on 07/18/16 11:56; Admin Dose 12.6 MLS/HR; Start 07/12/16 at 21:00 Norepinephrine 16 mg/Dextrose 500 ml @ 1.87 mls/hr TITRATE IV Last administered on 07/13/16 13:43; Admin Dose 18.75 MLS/HR; Start 07/13/16 at 08: 00 Fluconazole/ Sodium Chloride (Diflucan 100 Mg/ NS (Pmx)) 50 ml @ 50 mls/hr Q24H IVPB Last administered on 07/18/16 11:56; Admin Dose 50 MLS/HR; Start at 11:00 Albuterol (Ventolin Hfa) 2 puff Q4H PRN INH SHORTNESS OF BREATH Last administered on 07/17/16 03:50; Admin Dose 2 PUFF; Start 07/14/16 at 22:00 Ipratropium [place] 4 puff 4 puff Q4H PRN INH SHORTNESS OF BREATH Last administered on 07/17/16 03:50; Admin Dose 4 PUFF; Start 07/14/16 at 22:00 Meropenem (Merrem 500 Mg/ 100 ml (Pmx)) 100 ml @ 200 mls/hr Q24H IVPB Last administered on 07/17/16 21:29; Admin Dose 200 MLS/HR; Start 07/16/16 at 21:00 Heparin Sodium (Porcine) (Heparin (5000 Units/0.5 ml)) 5,000 unit BID SC ; Start 07/18/16 at 21:00 MARIELA ROBIN NP July 18, 2016 12:47
[2016-07-18] MEDS: morphine 2 MG INJ IV PRN ×2 (13:51→20:20)
--- NOTE | 2016-07-18 19:21 | CONS ---
Date/Time of Note Date/Time of Note DATE: 07/18/16 TIME: 19:20 Assessment/Plan Assessment/Plan Additional Assessment/Plan IMPRESSION: 1. Biliary obstruction. Status post biliary stent, bilirubin is now going up, radiologist needs to evaluate biliary drain 2. Gram negative bacteremia, either from the urine or from the biliary system. 3. 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 4. 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 Gastric outlet obstruction secondary to tumor growing over the proximal part of the metallic stent in the duodenum. 6. Aspiration pneumonia 7. Renal failure, it is multifactorial 8. UTI with Pseudomonas and Chelsy in the urine, E. coli in the blood Plan Continue NG tube to intermittent suction since the Patient has got gastric outlet obstruction. Biliary obstruction status post plastic biliary stent both external and internal Respiratory failure patient is on vent Continue antibiotic Within the patient off the vent since patient is alert awake and oriented and also his FiO2 has dropped down to almost 35% now When patient is more stable will place another duodenal stent. Patient is not a candidate for surgical bypass We should start chemo as soon as possible when the infection is under control ID follow-up Continue dialysis Monitor liver function if bilirubin keeps going up and radiologist needs to evaluate biliary drainage Consultation Date/Type/Reason Admit Date/Time Jun 30, 2016 at 15:42 Initial Consult Date 06/30/16 Type of Consultation: ID Referring Provider: GAMALIEL HAIR MD 24 HR Interval Summary Free Text/Dictation Patient on vent fully awake responding to command Exam/Review of Systems Vital Signs Vitals Vital Signs Date Time Temp Pulse Resp B/P Pulse Ox O2 Delivery O2 Flow Rate FiO2 07/18/16 17:06 77 16 99 45 07/18/16 07:00 105/76 Mechanical Ventilator 07/18/16 03:30 98.2 Intake and Output 07/17/16 07/17/16 07/18/16 15:00 23:00 07:00 Intake Total 963.4 ml 1111.4 ml 528 ml Output Total 25 ml 0 ml 0 ml Balance 938.4 ml 1111.4 ml 528 ml Exam Constitutional: alert, oriented, well developed Psych: nl mood/affect, no complaints Neck: non-tender, supple Respiratory: other (Patient is on vent FiO2 45%) Cardiovascular: nl pulses, regular rate and rhythm Gastrointestinal: nl liver, spleen, non-tender, soft Extremities: edema Neurological: ASSOCIATE PASTOR II-XII intact, nl mental status, nl speech, nl strength Results Result Diagram: 07/18/1626 07/18/16525 Results 24 hrs Laboratory Tests Test 07/18/16 05:00 07/18/16 05:26 Blood Gas Specimen Source Blood arterial Arterial Blood Date Drawn 07/18/2016 5:13:44 AM Arterial Blood pH (Temp corrected) 7.348 L Arterial Blood pCO2 (Temp correct) 32.1 L Arterial Blood pO2 (Temp corrected) 86.0 Arterial Blood HCO3 17.2 L Arterial Blood Base Excess -7.3 L Arterial Blood Oxygen Saturation 96.0 Og Test ACCEPTAB Arterial Blood Gas Puncture Site Right Radial Arterial Blood Carboxyhemoglobin 0.1 Arterial Blood Methemoglobin 0.4 Blood Gas A-a O2 Differential 198.3 H Oxyhemoglobin Percent 95.5 Total Hemoglobin 13.7 Blood Gas Temperature 37.0 Blood Gas Respiration Rate 4.0 Blood Gas Actual Respiration Rate 25 Blood Gas Modality VENT - SIMV FiO2 45.0 Blood Gas Tidal Volume 600.0 Blood Gas Low PEEP Setting 5.0 Blood Gas Inspiratory Pressure 16.0 Blood Gas Pressure Support 10 Blood Gas Notified Whom BR Blood Gas Notified Time 07/18/2016 5:19:16 AM White Blood Count 9.6 Red Blood Count 4.23 L Hemoglobin 13.0 L Hematocrit 38.0 L Mean Corpuscular Volume 89.8 Mean Corpuscular Hemoglobin 30.7 Mean Corpuscular Hemoglobin Concent 34.2 Red Cell Distribution Width 18.1 H Platelet Count 134 L Mean Platelet Volume 10.5 H Neutrophils % 89.7 H Lymphocytes % 3.6 L Monocytes % 4.4 Eosinophils % 0.0 Basophils % 0.1 Nucleated Red Blood Cells % 0.5 H Neutrophils # 8.6 H Lymphocytes # 0.3 L Monocytes # 0.4 Eosinophils # 0.0 Basophils # 0.0 Nucleated Red Blood Cells # 0.1 H Sodium Level 137 Potassium Level 5.8 H Chloride Level 113 H Carbon Dioxide Level 16 L Anion Gap 14 Blood Urea Nitrogen 74 H Creatinine 2.97 H Glucose Level 170 Calcium Level 7.8 L Total Bilirubin 4.1 H Direct Bilirubin 3.70 H Indirect Bilirubin 0.4 Aspartate Amino Transf (AST/SGOT) 85 H Alanine Aminotransferase (ALT/SGPT) 95 H Alkaline Phosphatase 173 H Total Protein 5.2 L Albumin 2.2 L Globulin 3.00 Albumin/Globulin Ratio 0.73 Medications Medications Current Medications Potassium Chloride/Sodium Chloride (NS-KCl 20 Meq) 1,000 ml @ 100 mls/hr Q10H IV Last administered on 07/18/16 14:27; Admin Dose 100 MLS/HR; Start 06/30/16 at 16:18 Ondansetron HCl (Zofran Inj) 4 mg Q6H PRN IV NAUSEA AND/OR VOMITING Last administered on 07/12/16 03:27; Admin Dose 4 MG; Start 06/30/16 at 16:30 Acetaminophen (Tylenol Tab) 650 mg Q6H PRN PO PAIN LEVEL 1-3 OR FEVER Last administered on 07/05/16 19:31; Admin Dose 650 MG; Start 06/30/16 at 16:30 Acetaminophen (Tylenol Supp) 650 mg Q6H PRN CO PAIN LEVEL 1-3 OR FEVER; Start 06/30/16 at 16:30 Acetaminophen/ Hydrocodone Bitart ([place] (5/325)) 1 tab Q6H PRN PO MODERATE PAIN LEVEL 4-6 Last administered on 07/18/16 00:29; Admin Dose 1 TAB; Start at 16:30 Acetaminophen/ Hydrocodone Bitart ([place] (5/325)) 2 tab Q6H PRN PO SEVERE PAIN LEVEL 7-10 Last administered on 07/10/16 13:15; Admin Dose 2 TAB; Start at 16:30 Morphine Sulfate (morphine) 2 mg Q4H PRN IV SEVERE PAIN LEVEL 7-10 Last administered on 07/18/16 13:51; Admin Dose 2 MG; Start 06/30/16 at 16:30 Docusate Sodium (Colace) 100 mg Q12H PRN PO CONSTIPATION; Start 06/30/16 at 16: 30 Magnesium Hydroxide (Milk Of Mag) 30 ml DAILY PRN PO CONSTIPATION; Start at 16:30 Bisacodyl (Dulcolax Supp) 10 mg DAILY PRN [place] CONSTIPATION; Start 06/30/16 at 16 :30 Pantoprazole 40 mg 40 mg DAILY@06 IV Last administered on 07/18/16 06:30; Admin Dose 40 MG; Start 07/01/16 at 06:00 Erythromycin Lactobionate 250 mg/Sodium Chloride 100 ml @ 100 mls/hr Q6 IVPB Last administered on 07/18/16 18:58; Admin Dose 100 MLS/HR; Start 07/09/16 at 00 :00 Propofol 100 ml @ 2.1 mls/hr Q12H IV Last administered on 07/18/16 19:01; Admin Dose 16.8 MLS/HR; Start 07/12/16 at 21:00 Norepinephrine 16 mg/Dextrose 500 ml @ 1.87 mls/hr TITRATE IV Last administered on 07/13/16 13:43; Admin Dose 18.75 MLS/HR; Start 07/13/16 at 08: 00 Fluconazole/ Sodium Chloride (Diflucan 100 Mg/ NS (Pmx)) 50 ml @ 50 mls/hr Q24H IVPB Last administered on 07/18/16 11:56; Admin Dose 50 MLS/HR; Start at 11:00 Albuterol (Ventolin Hfa) 2 puff Q4H PRN INH SHORTNESS OF BREATH Last administered on 07/17/16 03:50; Admin Dose 2 PUFF; Start 07/14/16 at 22:00 Ipratropium [place] 4 puff 4 puff Q4H PRN INH SHORTNESS OF BREATH Last administered on 07/17/16 03:50; Admin Dose 4 PUFF; Start 07/14/16 at 22:00 Meropenem (Merrem 500 Mg/ 100 ml (Pmx)) 100 ml @ 200 mls/hr Q24H IVPB Last administered on 07/17/16 21:29; Admin Dose 200 MLS/HR; Start 07/16/16 at 21:00 Heparin Sodium (Porcine) (Heparin (5000 Units/0.5 ml)) 5,000 unit BID SC ; Start 07/18/16 at 21:00 Metoclopramide HCl (Reglan) 5 mg Q8 IV ; Start 07/18/16 at 22:00 TIANNA SALINAS MD July 18, 2016 19:21
[2016-07-18] MEDS: MEROPENEM 500 MG/100 ML (PMX) 100 ML IVPB SCH (21:18)
[2016-07-18] MEDS: HEPARIN 5,000 UNIT/0.5 ML VIAL SC SCH (21:20)
[2016-07-19] VITALS (35 sets, daily range): BP systolic 93–127; BP diastolic 65–78; PULSE 73–86; RESP 15–32
[2016-07-19] MEDS: ERYTHROMYCIN LACTOBIONATE 250 MG in SOD CHLORIDE 0.9% 100 ML IVPB SCH ×5 (00:03→23:46)
[2016-07-19] MEDS: NS + KCL 20 MEQ 1,000 ML IV SCH (01:53)
[2016-07-19 06:08] LABS: ABNORMAL IP MESSAGE 1; ADD SCAN DIFF NO; BASOPHILS % 0.1 % (0.0-2.0); HEMATOCRIT 35.5 % (42.0-52.0); LYMPHOCYTES # 0.4 10^3/ul (0.8-2.9); LYMPHOCYTES % 3.3 % (15.0-51.0); MEAN CORPUSCULAR HEMOGLOBIN 31.1 pg (29.0-33.0); MEAN CORPUSCULAR HGB CONC 33.8 g/dl (32.0-37.0); MEAN PLATELET VOLUME 11.2 fl (7.4-10.4); MONOCYTE # 0.6 10^3/ul (0.3-0.9); MONOCYTES % 4.4 % (0.0-11.0); NEUTROPHIL # 11.3 10^3/ul (1.6-7.5); NEUTROPHILS % 89.7 % (39.0-77.0); NUCLEATED RED BLOOD CELLS% 0.3 /100WBC (0.0-0.0); PLATELET COUNT 116 10^3/UL (140-415); RED BLOOD COUNT 3.86 10^6/ul (4.70-6.10); RED CELL DISTRIBUTION WIDTH 18.1 % (11.5-14.5); WHITE BLOOD COUNT 12.6 10^3/ul (4.8-10.8)
[2016-07-19] MEDS: METOCLOPRAMIDE 10 MG INJ IV SCH ×3 (06:23→21:48)
[2016-07-19] MEDS: PANTOPRAZOLE 40 MG INJ IV SCH (06:23)
[2016-07-19 06:54] LABS: ALBUMIN 2.4 g/dl (3.3-4.9); ALBUMIN/GLOBULIN RATIO 0.92; BILIRUBIN,DIRECT 3.7 mg/dl (0.00-0.20); BILIRUBIN,INDIRECT 0.4 mg/dl (0-1.1); BILIRUBIN,TOTAL 4.1 mg/dl (0.2-1.3); CALCIUM 7.7 mg/dl (8.4-10.2); POTASSIUM 5.4 mmol/L (3.5-5.1)
[2016-07-19 07:01] LABS: CREATININE 2.67 mg/dl (0.61-1.24)
[2016-07-19] MEDS: PROPOFOL 100 ML IV SCH ×5 (08:02→23:46)
[2016-07-19] MEDS: HEPARIN 5,000 UNIT/0.5 ML VIAL SC SCH ×2 (09:08→21:51)
[2016-07-19] MEDS ORDERED: SOD CHLORIDE 0.9% 1,000 ML IV SCH (09:30)
--- NOTE | 2016-07-19 09:34 | CONS ---
Date/Time of Note Date/Time of Note DATE: 07/19/16 TIME: 09:33 Assessment/Plan Assessment/Plan Chief Complaint/Hosp Course 60 year old male with metastatic urothelial cancer who had presented during the last admission with gastric outlet obstruction status post duodenal stent . Has since been diagnosed with metastatic urothelial cancer Patient now readmitted with sepsis with abdominal pain. He is currently in critical condition, intubated in the ICU # metastatic urothelial cancer - CT A/P demonstrates infiltrative neoplasm involving the cecum, ascending colon and hepatic flexure with extension of tumor to the serosa involving the lateral wall of the duodenum. This has advanced as compared to 05/27/2016. - I had planned to start gemcitabine 1000 mg/m2 D1, 8 and carboplatin AUC 4.5 D1 however wanted to hold off for now until adequately treated with at least 14 days of antibiotics for bacteremia. If patient remained stable, I had planned to give chemo at the end of this week, however patient now with worsening of left lung pneumonia concerning for aspiration during EGD, tachycardic, hypotensive, intubated, on sedation, one pressor, broad spectrum antibiotics. Given rapidly growing tumor, would want to start chemo ISSA when patient more stable. - discussed with Dr. De, duodenal stent obstructed by tumor, status post new internal biliary catheter 07/11/16 - Dr. Nolan to arrange for POLST form to be filled out - acute drop in Hemogloin noted yesterday, s/p 1 unit pRBCs now Hgb 9.3, no evidence of bleeding, iron panel Fe 21, TIBC 148 (low), %14, ferritin 601 consistent with anemia of chronic inflammation, Vitamin B12/folate WNL, retic count inappropriately low; LDH elevated at 948, will check haptoglobin, LFTs to eval for hemolysis but lower suspicion. Will request peripheral smear review given metamyelocytes noted on differential. - Hg has improved after blood transfusion and is now > 10 # E. coli bacteremia - with sepsis secondary to biliary obstruction s/p attempted unsuccessful ERCP 07/03, s/p external percutaneous biliary drainage 07/05 - Last blood cultures were clear from 07/05/16 - will hold on removing the port for now. If ID feels it is necessary to remove and if bacteremia does not clear, will remove at that time # Biliary obstruction - per GI, patient Bili is stable. - s/p percutaneous biliary drain given rise in bilirubin. T bili now down to 1.6 - status post new biliary catheter 07/11/16 - status post EGD that demonstrated gastric outlet obstruction with tumor growing over stent and almost complete obstructing lumen, may need gastrojejunostomy vs. another stent per GI # Diabetic Gastroparesis - cont reglan; erythromycin added as prokinetic agent per GI # CHARITY - Acute kidney injury secondary to acute tubular necrosis from septic shock and also contributing vancomycin - cont HD per renal Problems: Consultation Date/Type/Reason Admit Date/Time Jun 30, 2016 at 15:42 Initial Consult Date 06/30/16 Type of Consultation: Oncology Referring Provider: GAMALIEL HAIR MD 24 HR Interval Summary Free Text/Dictation Patient intubated on propofol but awake and following commands. Being started on TPN. Exam/Review of Systems Vital Signs Vitals Vital Signs Date Time Temp Pulse Resp B/P Pulse Ox O2 Delivery O2 Flow Rate FiO2 07/19/16 08:00 80 07/19/16 08:00 35 07/19/16 06:00 18 98 07/19/16 06:00 Mechanical Ventilator 07/19/16 00:00 97.7 Intake and Output 07/18/16 07/18/16 07/19/16 14:59 22:59 06:59 Intake Total 1203.8 ml 930.2 ml 934.4 ml Output Total 5300 ml 0 ml 0 ml Balance -4096.2 ml 930.2 ml 934.4 ml Exam Constitutional: non-verbal ENMT: intubated Neck: non-tender, supple Respiratory: crackles/rales, diminished breath sounds Gastrointestinal: soft Musculoskeletal: nl extremities to inspection, nl gait and stance Results Result Diagram: 07/19/16 0515 07/19/16 0515 Results 24 hrs Laboratory Tests Test 07/19/16 05:15 White Blood Count 12.6 #H Red Blood Count 3.86 L Hemoglobin 12.0 L Hematocrit 35.5 L Mean Corpuscular Volume 92.0 Mean Corpuscular Hemoglobin 31.1 Mean Corpuscular Hemoglobin Concent 33.8 Red Cell Distribution Width 18.1 H Platelet Count 116 L Mean Platelet Volume 11.2 H Neutrophils % 89.7 H Lymphocytes % 3.3 L Monocytes % 4.4 Eosinophils % 0.0 Basophils % 0.1 Nucleated Red Blood Cells % 0.3 H Neutrophils # 11.3 H Lymphocytes # 0.4 L Monocytes # 0.6 Eosinophils # 0.0 Basophils # 0.0 Nucleated Red Blood Cells # 0.0 Sodium Level 139 Potassium Level 5.4 H Chloride Level 111 H Carbon Dioxide Level 18 L Anion Gap 15 Blood Urea Nitrogen 60 H Creatinine 2.67 H Glucose Level 135 Calcium Level 7.7 L Magnesium Level 2.0 Total Bilirubin 4.1 H Direct Bilirubin 3.70 H Indirect Bilirubin 0.4 Aspartate Amino Transf (AST/SGOT) 68 H Alanine Aminotransferase (ALT/SGPT) 83 H Alkaline Phosphatase 157 H Total Protein 5.0 L Albumin 2.4 L Globulin 2.60 Albumin/Globulin Ratio 0.92 Medications Medications Current Medications Ondansetron HCl (Zofran Inj) 4 mg Q6H PRN IV NAUSEA AND/OR VOMITING Last administered on 07/12/16 03:27; Admin Dose 4 MG; Start 06/30/16 at 16:30 Acetaminophen (Tylenol Tab) 650 mg Q6H PRN PO PAIN LEVEL 1-3 OR FEVER Last administered on 07/05/16 19:31; Admin Dose 650 MG; Start 06/30/16 at 16:30 Acetaminophen (Tylenol Supp) 650 mg Q6H PRN [place] PAIN LEVEL 1-3 OR FEVER; Start 06/30/16 at 16:30 Acetaminophen/ Hydrocodone Bitart ([place] (5/325)) 1 tab Q6H PRN PO MODERATE PAIN LEVEL 4-6 Last administered on 07/18/16 00:29; Admin Dose 1 TAB; Start at 16:30 Acetaminophen/ Hydrocodone Bitart ([place] (5/325)) 2 tab Q6H PRN PO SEVERE PAIN LEVEL 7-10 Last administered on 07/10/16 13:15; Admin Dose 2 TAB; Start at 16:30 Morphine Sulfate (morphine) 2 mg Q4H PRN IV SEVERE PAIN LEVEL 7-10 Last administered on 07/18/16 20:20; Admin Dose 2 MG; Start 06/30/16 at 16:30 Docusate Sodium (Colace) 100 mg Q12H PRN PO CONSTIPATION; Start 06/30/16 at 16: 30 Magnesium Hydroxide (Milk Of Mag) 30 ml DAILY PRN PO CONSTIPATION; Start at 16:30 Bisacodyl (Dulcolax Supp) 10 mg DAILY PRN [place] CONSTIPATION; Start 06/30/16 at 16 :30 Pantoprazole 40 mg 40 mg DAILY@06 IV Last administered on 07/19/16 06:23; Admin Dose 40 MG; Start 07/01/16 at 06:00 Erythromycin Lactobionate 250 mg/Sodium Chloride 100 ml @ 100 mls/hr Q6 IVPB Last administered on 07/19/16 06:23; Admin Dose 100 MLS/HR; Start 07/09/16 at 00 :00 Propofol 100 ml @ 2.1 mls/hr Q12H IV Last administered on 07/19/16 08:02; Admin Dose 16.8 MLS/HR; Start 07/12/16 at 21:00 Norepinephrine 16 mg/Dextrose 500 ml @ 1.87 mls/hr TITRATE IV Last administered on 07/13/16 13:43; Admin Dose 18.75 MLS/HR; Start 07/13/16 at 08: 00 Fluconazole/ Sodium Chloride (Diflucan 100 Mg/ NS (Pmx)) 50 ml @ 50 mls/hr Q24H IVPB Last administered on 07/18/16 11:56; Admin Dose 50 MLS/HR; Start at 11:00 Albuterol (Ventolin Hfa) 2 puff Q4H PRN INH SHORTNESS OF BREATH Last administered on 07/17/16 03:50; Admin Dose 2 PUFF; Start 07/14/16 at 22:00 Ipratropium [place] 4 puff 4 puff Q4H PRN INH SHORTNESS OF BREATH Last administered on 07/17/16 03:50; Admin Dose 4 PUFF; Start 07/14/16 at 22:00 Meropenem (Merrem 500 Mg/ 100 ml (Pmx)) 100 ml @ 200 mls/hr Q24H IVPB Last administered on 07/18/16 21:18; Admin Dose 200 MLS/HR; Start 07/16/16 at 21:00 Heparin Sodium (Porcine) (Heparin (5000 Units/0.5 ml)) 5,000 unit BID SC Last administered on 07/19/16 09:08; Admin Dose 5,000 UNIT; Start 07/18/16 at 21:00 Metoclopramide HCl 5 mg 5 mg Q8 IV Last administered on 07/19/16t 06:23; Admin Dose 5 MG; Start 07/18/16 at 22:00 Sodium Chloride (NS) 1,000 ml @ 100 mls/hr Q10H IV ; Start 07/19/16 at 09:30 DARBY KNOWLES MD July 19, 2016 09:33
--- NOTE | 2016-07-19 10:41 | CONS ---
Date/Time of Note Date/Time of Note DATE: 07/19/16 TIME: 10:37 Assessment/Plan Assessment/Plan Additional Assessment/Plan Ventilator setting; AC of 16, tidal volume 500, PEEP of 5, 35% FiO2. Patient currently on propofol at 40 mics per kilogram per minute. Next Assessment recommendations; 1. Patient admitted with gastric outlet obstruction, underwent EGD with subsequent aspiration of the left lung leading to respiratory failure. 2. Metastatic uroepithelial cancer. 3. Renal failure, now requiring hemodialysis. 4. Metabolic acidosis. Continue current treatment. Patient will be started on TPN. Chest x-ray is pending from today. Prognosis is guarded. 35 minutes of critical care time was spent evaluating the patient. Consultation Date/Type/Reason Admit Date/Time Jun 30, 2016 at 15:42 Initial Consult Date 07/12/16 Type of Consultation: Pulmonary/critical care Referring Provider: GAMALIEL HAIR MD 24 HR Interval Summary Free Text/Dictation Patient's condition remains critical. Still requiring full ventilator support. Patient however has remained hemodynamically stable. General exam; elderly male, orally intubated. Currently in no distress. Sedated. Exam/Review of Systems Vital Signs Vitals Vital Signs Date Time Temp Pulse Resp B/P Pulse Ox O2 Delivery O2 Flow Rate FiO2 07/19/16 10:00 79 16 93/65 100 Mechanical Ventilator 07/19/16 08:00 98.5 07/19/16 08:00 35 Intake and Output 07/18/16 07/18/16 07/19/16 15:00 23:00 07:00 Intake Total 1300.4 ml 934.4 ml 934.4 ml Output Total 5300 ml 0 ml 0 ml Balance -3999.6 ml 934.4 ml 934.4 ml Exam HEENT exam is; supple neck, no JVD. No lymphadenopathy. Midline trachea. No thyromegaly. Patient appearing icteric. Dentition is fair. Pupils are small bilaterally. Orally intubated. Chest examination; diminished but clear breath sounds. S2 audible, no murmurs. Regular rhythm. Abdomen examination; soft, nondistended. No organomegaly. Bowel sounds audible. Extremity examination; trace peripheral edema. TECHNICAL ANALYST examination; patient is sedated. Results Result Diagram: 07/19/16 0515 07/19/16 0515 Results 24 hrs Laboratory Tests Test 07/19/16 05:15 White Blood Count 12.6 #H Red Blood Count 3.86 L Hemoglobin 12.0 L Hematocrit 35.5 L Mean Corpuscular Volume 92.0 Mean Corpuscular Hemoglobin 31.1 Mean Corpuscular Hemoglobin Concent 33.8 Red Cell Distribution Width 18.1 H Platelet Count 116 L Mean Platelet Volume 11.2 H Neutrophils % 89.7 H Lymphocytes % 3.3 L Monocytes % 4.4 Eosinophils % 0.0 Basophils % 0.1 Nucleated Red Blood Cells % 0.3 H Neutrophils # 11.3 H Lymphocytes # 0.4 L Monocytes # 0.6 Eosinophils # 0.0 Basophils # 0.0 Nucleated Red Blood Cells # 0.0 Sodium Level 139 Potassium Level 5.4 H Chloride Level 111 H Carbon Dioxide Level 18 L Anion Gap 15 Blood Urea Nitrogen 60 H Creatinine 2.67 H Glucose Level 135 Calcium Level 7.7 L Magnesium Level 2.0 Total Bilirubin 4.1 H Direct Bilirubin 3.70 H Indirect Bilirubin 0.4 Aspartate Amino Transf (AST/SGOT) 68 H Alanine Aminotransferase (ALT/SGPT) 83 H Alkaline Phosphatase 157 H Total Protein 5.0 L Albumin 2.4 L Globulin 2.60 Albumin/Globulin Ratio 0.92 Medications Medications Current Medications Ondansetron HCl (Zofran Inj) 4 mg Q6H PRN IV NAUSEA AND/OR VOMITING Last administered on 07/12/16 03:27; Admin Dose 4 MG; Start 06/30/16 at 16:30 Acetaminophen (Tylenol Tab) 650 mg Q6H PRN PO PAIN LEVEL 1-3 OR FEVER Last administered on 07/05/16 19:31; Admin Dose 650 MG; Start 06/30/16 at 16:30 Acetaminophen (Tylenol Supp) 650 mg Q6H PRN [place] PAIN LEVEL 1-3 OR FEVER; Start 06/30/16 at 16:30 Acetaminophen/ Hydrocodone Bitart ([place] (5/325)) 1 tab Q6H PRN PO MODERATE PAIN LEVEL 4-6 Last administered on 07/18/16 00:29; Admin Dose 1 TAB; Start at 16:30 Acetaminophen/ Hydrocodone Bitart ([place] (5/325)) 2 tab Q6H PRN PO SEVERE PAIN LEVEL 7-10 Last administered on 07/10/16 13:15; Admin Dose 2 TAB; Start at 16:30 Morphine Sulfate (morphine) 2 mg Q4H PRN IV SEVERE PAIN LEVEL 7-10 Last administered on 07/18/16 20:20; Admin Dose 2 MG; Start 06/30/16 at 16:30 Docusate Sodium (Colace) 100 mg Q12H PRN PO CONSTIPATION; Start 06/30/16 at 16: 30 Magnesium Hydroxide (Milk Of Mag) 30 ml DAILY PRN PO CONSTIPATION; Start at 16:30 Bisacodyl (Dulcolax Supp) 10 mg DAILY PRN [place] CONSTIPATION; Start 06/30/16 at 16 :30 Pantoprazole 40 mg 40 mg DAILY@06 IV Last administered on 07/19/16 06:23; Admin Dose 40 MG; Start 07/01/16 at 06:00 Erythromycin Lactobionate 250 mg/Sodium Chloride 100 ml @ 100 mls/hr Q6 IVPB Last administered on 07/19/16 06:23; Admin Dose 100 MLS/HR; Start 07/09/16 at 00 :00 Propofol 100 ml @ 2.1 mls/hr Q12H IV Last administered on 07/19/16 08:02; Admin Dose 16.8 MLS/HR; Start 07/12/16 at 21:00 Norepinephrine 16 mg/Dextrose 500 ml @ 1.87 mls/hr TITRATE IV Last administered on 07/13/16 13:43; Admin Dose 18.75 MLS/HR; Start 07/13/16 at 08: 00 Fluconazole/ Sodium Chloride (Diflucan 100 Mg/ NS (Pmx)) 50 ml @ 50 mls/hr Q24H IVPB Last administered on 07/18/16 11:56; Admin Dose 50 MLS/HR; Start at 11:00 Albuterol (Ventolin Hfa) 2 puff Q4H PRN INH SHORTNESS OF BREATH Last administered on 07/17/16 03:50; Admin Dose 2 PUFF; Start 07/14/16 at 22:00 Ipratropium [place] 4 puff 4 puff Q4H PRN INH SHORTNESS OF BREATH Last administered on 07/17/16 03:50; Admin Dose 4 PUFF; Start 07/14/16 at 22:00 Meropenem (Merrem 500 Mg/ 100 ml (Pmx)) 100 ml @ 200 mls/hr Q24H IVPB Last administered on 07/18/16 21:18; Admin Dose 200 MLS/HR; Start 07/16/16 at 21:00 Heparin Sodium (Porcine) (Heparin (5000 Units/0.5 ml)) 5,000 unit BID SC Last administered on 07/19/16 09:08; Admin Dose 5,000 UNIT; Start 07/18/16 at 21:00 Metoclopramide HCl 5 mg 5 mg Q8 IV Last administered on 07/19/16 06:23; Admin Dose 5 MG; Start 07/18/16 at 22:00 Sodium Chloride (NS) 1,000 ml @ 100 mls/hr Q10H IV Last administered on 10:12; Admin Dose 100 MLS/HR; Start 07/19/16 at 09:30 Diagnostic Test (Pha) (Accu-Chek) 1 ea Q4 XX ; Start 07/19/16 at 13:[address] July 19, 2016 10:41
--- NOTE | 2016-07-19 11:06 | CONS ---
Date/Time of Note Date/Time of Note DATE: 07/19/16 TIME: 11:05 Assessment/Plan Assessment/Plan Additional Assessment/Plan 1. Acute fluid overload with anasarca. 2. Acute kidney injury secondary to acute tubular necrosis from septic shock and also contributing vancomycin. 3. Metabolic acidosis secondary to acute renal failure. 4. 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 5. Septic shock secondary to aspiration pneumonia and gastric outlet obstruction, status post duodenal stent placement. 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 we will wait for pt to be more stable before we decide for Permacath dialysis catheter will continue to follow up Consultation Date/Type/Reason Admit Date/Time Jun 30, 2016 at 15:42 Initial Consult Date 07/14/16 Type of Consultation: NEPHROLOGY Referring Provider: GAMALIEL HAIR MD Exam/Review of Systems Vital Signs Vitals Vital Signs Date Time Temp Pulse Resp B/P Pulse Ox O2 Delivery O2 Flow Rate FiO2 07/19/16 10:00 79 16 93/65 100 Mechanical Ventilator 07/19/16 09:58 35 07/19/16 08:00 98.5 Intake and Output 07/18/16 07/18/16 07/19/16 15:00 23:00 07:00 Intake Total 1300.4 ml 934.4 ml 934.4 ml Output Total 5300 ml 0 ml 0 ml Balance -3999.6 ml 934.4 ml 934.4 ml Exam Constitutional: non-verbal Respiratory: bibasilar crackles , no wheezing Cardiovascular: regular rate and rhythm Gastrointestinal: soft, No distended Musculoskeletal: nl extremities to inspection + deja HD catheter Results Result Diagram: 07/19/16 0515 07/19/16 0515 Results 24 hrs Laboratory Tests Test 07/19/16 05:15 White Blood Count 12.6 #H Red Blood Count 3.86 L Hemoglobin 12.0 L Hematocrit 35.5 L Mean Corpuscular Volume 92.0 Mean Corpuscular Hemoglobin 31.1 Mean Corpuscular Hemoglobin Concent 33.8 Red Cell Distribution Width 18.1 H Platelet Count 116 L Mean Platelet Volume 11.2 H Neutrophils % 89.7 H Lymphocytes % 3.3 L Monocytes % 4.4 Eosinophils % 0.0 Basophils % 0.1 Nucleated Red Blood Cells % 0.3 H Neutrophils # 11.3 H Lymphocytes # 0.4 L Monocytes # 0.6 Eosinophils # 0.0 Basophils # 0.0 Nucleated Red Blood Cells # 0.0 Sodium Level 139 Potassium Level 5.4 H Chloride Level 111 H Carbon Dioxide Level 18 L Anion Gap 15 Blood Urea Nitrogen 60 H Creatinine 2.67 H Glucose Level 135 Calcium Level 7.7 L Magnesium Level 2.0 Total Bilirubin 4.1 H Direct Bilirubin 3.70 H Indirect Bilirubin 0.4 Aspartate Amino Transf (AST/SGOT) 68 H Alanine Aminotransferase (ALT/SGPT) 83 H Alkaline Phosphatase 157 H Total Protein 5.0 L Albumin 2.4 L Globulin 2.60 Albumin/Globulin Ratio 0.92 Medications Medications Current Medications Ondansetron HCl (Zofran Inj) 4 mg Q6H PRN IV NAUSEA AND/OR VOMITING Last administered on 07/12/16 03:27; Admin Dose 4 MG; Start 06/30/16 at 16:30 Acetaminophen (Tylenol Tab) 650 mg Q6H PRN PO PAIN LEVEL 1-3 OR FEVER Last administered on 07/05/16 19:31; Admin Dose 650 MG; Start 06/30/16 at 16:30 Acetaminophen (Tylenol Supp) 650 mg Q6H PRN [place] PAIN LEVEL 1-3 OR FEVER; Start 06/30/16 at 16:30 Acetaminophen/ Hydrocodone Bitart ([place] (5/325)) 1 tab Q6H PRN PO MODERATE PAIN LEVEL 4-6 Last administered on 07/18/16 00:29; Admin Dose 1 TAB; Start at 16:30 Acetaminophen/ Hydrocodone Bitart ([place] (5/325)) 2 tab Q6H PRN PO SEVERE PAIN LEVEL 7-10 Last administered on 07/10/16 13:15; Admin Dose 2 TAB; Start at 16:30 Morphine Sulfate (morphine) 2 mg Q4H PRN IV SEVERE PAIN LEVEL 7-10 Last administered on 07/18/16 20:20; Admin Dose 2 MG; Start 06/30/16 at 16:30 Docusate Sodium (Colace) 100 mg Q12H PRN PO CONSTIPATION; Start 06/30/16 at 16: 30 Magnesium Hydroxide (Milk Of Mag) 30 ml DAILY PRN PO CONSTIPATION; Start at 16:30 Bisacodyl (Dulcolax Supp) 10 mg DAILY PRN [place] CONSTIPATION; Start 06/30/16 at 16 :30 Pantoprazole 40 mg 40 mg DAILY@06 IV Last administered on 07/19/16 06:23; Admin Dose 40 MG; Start 07/01/16 at 06:00 Erythromycin Lactobionate 250 mg/Sodium Chloride 100 ml @ 100 mls/hr Q6 IVPB Last administered on 07/19/16 06:23; Admin Dose 100 MLS/HR; Start 07/09/16 at 00 :00 Propofol 100 ml @ 2.1 mls/hr Q12H IV Last administered on 07/19/16 08:02; Admin Dose 16.8 MLS/HR; Start 07/12/16 at 21:00 Norepinephrine 16 mg/Dextrose 500 ml @ 1.87 mls/hr TITRATE IV Last administered on 07/13/16 13:43; Admin Dose 18.75 MLS/HR; Start 07/13/16 at 08: 00 Fluconazole/ Sodium Chloride (Diflucan 100 Mg/ NS (Pmx)) 50 ml @ 50 mls/hr Q24H IVPB Last administered on 07/18/16 11:56; Admin Dose 50 MLS/HR; Start at 11:00 Albuterol (Ventolin Hfa) 2 puff Q4H PRN INH SHORTNESS OF BREATH Last administered on 07/17/16 03:50; Admin Dose 2 PUFF; Start 07/14/16 at 22:00 Ipratropium [place] 4 puff 4 puff Q4H PRN INH SHORTNESS OF BREATH Last administered on 07/17/16 03:50; Admin Dose 4 PUFF; Start 07/14/16 at 22:00 Meropenem (Merrem 500 Mg/ 100 ml (Pmx)) 100 ml @ 200 mls/hr Q24H IVPB Last administered on 07/18/16 21:18; Admin Dose 200 MLS/HR; Start 07/16/16 at 21:00 Heparin Sodium (Porcine) (Heparin (5000 Units/0.5 ml)) 5,000 unit BID SC Last administered on 07/19/16 09:08; Admin Dose 5,000 UNIT; Start 07/18/16 at 21:00 Metoclopramide HCl 5 mg 5 mg Q8 IV Last administered on 07/19/16 06:23; Admin Dose 5 MG; Start 07/18/16 at 22:00 Sodium Chloride (NS) 1,000 ml @ 100 mls/hr Q10H IV Last administered on 10:12; Admin Dose 100 MLS/HR; Start 07/19/16 at 09:30 Diagnostic Test (Pha) (Accu-Chek) 1 ea Q4 XX ; Start 07/19/16 at 13:00 SHANAE LEWIS MD July 19, 2016 11:05
[2016-07-19] MEDS: FLUCONAZOLE 100 MG/NS (PMX) 50 ML IVPB SCH (11:37)
--- NOTE | 2016-07-19 11:37 | CONS ---
Date/Time of Note Date/Time of Note DATE: 07/19/16 TIME: 11:33 Assessment/Plan Assessment/Plan Additional Assessment/Plan IMPRESSION: 1. Biliary obstruction. Status post biliary stent, bilirubin is now going up, radiologist needs to evaluate biliary drain 2. Gram negative bacteremia, either from the urine or from the biliary system. 3. 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 4. 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 Gastric outlet obstruction secondary to tumor growing over the proximal part of the metallic stent in the duodenum. 6. Aspiration pneumonia 7. Renal failure, it is multifactorial 8. UTI with Pseudomonas and Chelsy in the urine, E. coli in the blood 9. 4+ pedal edema, fluid overload Plan Continue NG tube to intermittent suction since the Patient has got gastric outlet obstruction. Biliary obstruction status post plastic biliary stent both external and internal Respiratory failure patient is on vent Continue antibiotic Within the patient off the vent since patient is alert awake and oriented and also his FiO2 has dropped down to almost 35% now When patient is more stable will place another duodenal stent. Patient is not a candidate for surgical bypass We should start chemo as soon as possible when the infection is under control ID follow-up Continue dialysis Monitor liver function if bilirubin keeps going up and radiologist needs to evaluate biliary drainage TPN Sonogram of the liver to rule out biliary obstruction Consultation Date/Type/Reason Admit Date/Time Jun 30, 2016 at 15:42 Initial Consult Date 06/30/16 Type of Consultation: Pulmonary/critical care Referring Provider: GAMALIEL HAIR MD 24 HR Interval Summary Free Text/Dictation Patient fully awake but intubated. He is oriented to time place and space Patient response to command. Subjective hx not possible: pt critical Exam/Review of Systems Vital Signs Vitals Vital Signs Date Time Temp Pulse Resp B/P Pulse Ox O2 Delivery O2 Flow Rate FiO2 07/19/16 10:00 79 16 93/65 100 Mechanical Ventilator 07/19/16 09:58 35 07/19/16 08:00 98.5 Intake and Output 07/18/16 07/18/16 07/19/16 15:00 23:00 07:00 Intake Total 1300.4 ml 934.4 ml 934.4 ml Output Total 5300 ml 0 ml 0 ml Balance -3999.6 ml 934.4 ml 934.4 ml Exam Constitutional: alert, oriented, well developed Respiratory: other (Patient is on vent FiO2 35%) Gastrointestinal: nl liver, spleen, non-tender, soft Musculoskeletal: nl extremities to inspection, nl gait and stance Extremities: edema Neurological: OUTSIDE SALES 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 II-XII intact, nl mental status, nl speech, nl strength Results Result Diagram: 07/19/16 0515 07/19/16 0515 Results 24 hrs Laboratory Tests Test 07/19/16 05:15 White Blood Count 12.6 #H Red Blood Count 3.86 L Hemoglobin 12.0 L Hematocrit 35.5 L Mean Corpuscular Volume 92.0 Mean Corpuscular Hemoglobin 31.1 Mean Corpuscular Hemoglobin Concent 33.8 Red Cell Distribution Width 18.1 H Platelet Count 116 L Mean Platelet Volume 11.2 H Neutrophils % 89.7 H Lymphocytes % 3.3 L Monocytes % 4.4 Eosinophils % 0.0 Basophils % 0.1 Nucleated Red Blood Cells % 0.3 H Neutrophils # 11.3 H Lymphocytes # 0.4 L Monocytes # 0.6 Eosinophils # 0.0 Basophils # 0.0 Nucleated Red Blood Cells # 0.0 Sodium Level 139 Potassium Level 5.4 H Chloride Level 111 H Carbon Dioxide Level 18 L Anion Gap 15 Blood Urea Nitrogen 60 H Creatinine 2.67 H Glucose Level 135 Calcium Level 7.7 L Magnesium Level 2.0 Total Bilirubin 4.1 H Direct Bilirubin 3.70 H Indirect Bilirubin 0.4 Aspartate Amino Transf (AST/SGOT) 68 H Alanine Aminotransferase (ALT/SGPT) 83 H Alkaline Phosphatase 157 H Total Protein 5.0 L Albumin 2.4 L Globulin 2.60 Albumin/Globulin Ratio 0.92 Medications Medications Current Medications Ondansetron HCl (Zofran Inj) 4 mg Q6H PRN IV NAUSEA AND/OR VOMITING Last administered on 07/12/16 03:27; Admin Dose 4 MG; Start 06/30/16 at 16:30 Acetaminophen (Tylenol Tab) 650 mg Q6H PRN PO PAIN LEVEL 1-3 OR FEVER Last administered on 07/05/16 19:31; Admin Dose 650 MG; Start 06/30/16 at 16:30 Acetaminophen (Tylenol Supp) 650 mg Q6H PRN [place] PAIN LEVEL 1-3 OR FEVER; Start 06/30/16 at 16:30 Acetaminophen/ Hydrocodone Bitart ([place] (5/325)) 1 tab Q6H PRN PO MODERATE PAIN LEVEL 4-6 Last administered on 07/18/16 00:29; Admin Dose 1 TAB; Start at 16:30 Acetaminophen/ Hydrocodone Bitart ([place] (5/325)) 2 tab Q6H PRN PO SEVERE PAIN LEVEL 7-10 Last administered on 07/10/16 13:15; Admin Dose 2 TAB; Start at 16:30 Morphine Sulfate (morphine) 2 mg Q4H PRN IV SEVERE PAIN LEVEL 7-10 Last administered on 07/18/16 20:20; Admin Dose 2 MG; Start 06/30/16 at 16:30 Docusate Sodium (Colace) 100 mg Q12H PRN PO CONSTIPATION; Start 06/30/16 at 16: 30 Magnesium Hydroxide (Milk Of Mag) 30 ml DAILY PRN PO CONSTIPATION; Start at 16:30 Bisacodyl (Dulcolax Supp) 10 mg DAILY PRN [place] CONSTIPATION; Start 06/30/16 at 16 :30 Pantoprazole 40 mg 40 mg DAILY@06 IV Last administered on 07/19/16 06:23; Admin Dose 40 MG; Start 07/01/16 at 06:00 Erythromycin Lactobionate 250 mg/Sodium Chloride 100 ml @ 100 mls/hr Q6 IVPB Last administered on 07/19/16 06:23; Admin Dose 100 MLS/HR; Start 07/09/16 at 00 :00 Propofol 100 ml @ 2.1 mls/hr Q12H IV Last administered on 07/19/16 08:02; Admin Dose 16.8 MLS/HR; Start 07/12/16 at 21:00 Norepinephrine 16 mg/Dextrose 500 ml @ 1.87 mls/hr TITRATE IV Last administered on 07/13/16 13:43; Admin Dose 18.75 MLS/HR; Start 07/13/16 at 08: 00 Fluconazole/ Sodium Chloride (Diflucan 100 Mg/ NS (Pmx)) 50 ml @ 50 mls/hr Q24H IVPB Last administered on 07/18/16 11:56; Admin Dose 50 MLS/HR; Start at 11:00 Albuterol (Ventolin Hfa) 2 puff Q4H PRN INH SHORTNESS OF BREATH Last administered on 07/17/16 03:50; Admin Dose 2 PUFF; Start 07/14/16 at 22:00 Ipratropium [place] 4 puff 4 puff Q4H PRN INH SHORTNESS OF BREATH Last administered on 07/17/16 03:50; Admin Dose 4 PUFF; Start 07/14/16 at 22:00 Meropenem (Merrem 500 Mg/ 100 ml (Pmx)) 100 ml @ 200 mls/hr Q24H IVPB Last administered on 07/18/16 21:18; Admin Dose 200 MLS/HR; Start 07/16/16 at 21:00 Heparin Sodium (Porcine) (Heparin (5000 Units/0.5 ml)) 5,000 unit BID SC Last administered on 07/19/16 09:08; Admin Dose 5,000 UNIT; Start 07/18/16 at 21:00 Metoclopramide HCl 5 mg 5 mg Q8 IV Last administered on 07/19/16 06:23; Admin Dose 5 MG; Start 07/18/16 at 22:00 Sodium Chloride (NS) 1,000 ml @ 100 mls/hr Q10H IV Last administered on 10:12; Admin Dose 100 MLS/HR; Start 07/19/16 at 09:30 Diagnostic Test (Pha) (Accu-Chek) 1 ea Q4 XX ; Start 07/19/16 at 13:00 Miscellaneous Information (*Rx Drug Level Order Reminder*) 1 ONCE ONCE XX ; Start 07/20/16 at 05:00; Stop 07/20/16 at 05:01 TIANNA SALINAS MD July 19, 2016 11:37
--- NOTE | 2016-07-19 11:49 | PN ---
Date/Time of Note Date/Time of Note DATE: 07/19/16 TIME: 11:45 Assessment/Plan VTE Prophylaxis VTE Prophylaxis Intervention: heparin Lines/Catheters IV [facility] JORD[facility] Urinary Cath still in place: Yes Reason Cath still needed: other (indicate) Assessment/Plan Assessment/Plan 60 year old male with metastatic urothelial cancer who had presented during the last admission with gastric outlet obstruction status post duodenal stent . Has since been diagnosed with metastatic urothelial cancer Patient now readmitted with sepsis with abdominal pain. He is currently in critical condition, intubated in the ICU 1. Septic Shock 2/2 Aspiration PNA 2. Transaminitis with Hyperbilirubinemia 2nd biliary obstruction from metastatic cancer 3. Metastatic Urothelial cancer with possible carcinomatosis 4. Tumor Obstructed duodenum with gastric outlet obstruction s/p duodenal stent 06/02/16 and with new ERCP showing tumor eroding stent and completely obstructing lumen 5. Steatosis 6. Acute Respiratory Failure secondary to aspiration pneumonia 7. Acute kidney injury secondary to acute tubular necrosis from septic shock and also contributing vancomycin requiring HD 8. S/p ecoli bacteremia and pseudomonas UTI 9. Chelsy UTI on fluconazole 10. TPN therapy PLAN: * Continue ICU ventilator weaning and management * Continue abx for bilateral pneumonia * Not a candidate for chemo at this time * Continue HD for CHARITY and pulm fluid overload / add albumin * Palliative care consulting on the case / jail prognosis poor * To be started on TPN per pulm as no feeds for now per GI * goal is for extubation and after which GI will try to replace stent and patient may also get chemo. CRITICAL CARE TIME: >35 mins Subjective 24 Hr Interval Summary Free Text/Dictation * Patient seen and examined. * Intubated and sedated for comfort, but no pressor support. * failed CPAP trials again yesterday * Spoke with at bedside Exam/Review of Systems Vital Signs Vitals Vital Signs Date Time Temp Pulse Resp B/P Pulse Ox O2 Delivery O2 Flow Rate FiO2 07/19/16 10:00 79 16 93/65 100 Mechanical Ventilator 07/19/16 09:58 35 07/19/16 08:00 98.5 Intake and Output 07/18/16 07/18/16 07/19/16 15:00 23:00 07:00 Intake Total 1300.4 ml 934.4 ml 934.4 ml Output Total 5300 ml 0 ml 0 ml Balance -3999.6 ml 934.4 ml 934.4 ml Exam Constitutional: alert despite propofol / lethargic / follows commands / responds to greetings ENMT: intubated / icteric ++ Respiratory: clear to auscultation / diminished Cardiovascular: regular rate and rhythm Gastrointestinal: soft, No distended Musculoskeletal: Daniel edema pitting / diffuse anasarca Genitourinary - Male: No nl scrotum (severe scrotal edema) Results Result Diagram: 07/19/1615 07/19/1615 Results 24 hrs Laboratory Tests Test 07/19/16 05:15 White Blood Count 12.6 #H Red Blood Count 3.86 L Hemoglobin 12.0 L Hematocrit 35.5 L Mean Corpuscular Volume 92.0 Mean Corpuscular Hemoglobin 31.1 Mean Corpuscular Hemoglobin Concent 33.8 Red Cell Distribution Width 18.1 H Platelet Count 116 L Mean Platelet Volume 11.2 H Neutrophils % 89.7 H Lymphocytes % 3.3 L Monocytes % 4.4 Eosinophils % 0.0 Basophils % 0.1 Nucleated Red Blood Cells % 0.3 H Neutrophils # 11.3 H Lymphocytes # 0.4 L Monocytes # 0.6 Eosinophils # 0.0 Basophils # 0.0 Nucleated Red Blood Cells # 0.0 Sodium Level 139 Potassium Level 5.4 H Chloride Level 111 H Carbon Dioxide Level 18 L Anion Gap 15 Blood Urea Nitrogen 60 H Creatinine 2.67 H Glucose Level 135 Calcium Level 7.7 L Magnesium Level 2.0 Total Bilirubin 4.1 H Direct Bilirubin 3.70 H Indirect Bilirubin 0.4 Aspartate Amino Transf (AST/SGOT) 68 H Alanine Aminotransferase (ALT/SGPT) 83 H Alkaline Phosphatase 157 H Total Protein 5.0 L Albumin 2.4 L Globulin 2.60 Albumin/Globulin Ratio 0.92 Medications Medications Current Medications Ondansetron HCl (Zofran Inj) 4 mg Q6H PRN IV NAUSEA AND/OR VOMITING Last administered on 07/12/16 03:27; Admin Dose 4 MG; Start 06/30/16 at 16:30 Acetaminophen (Tylenol Tab) 650 mg Q6H PRN PO PAIN LEVEL 1-3 OR FEVER Last administered on 07/05/16 19:31; Admin Dose 650 MG; Start 06/30/16 at 16:30 Acetaminophen (Tylenol Supp) 650 mg Q6H PRN [place] PAIN LEVEL 1-3 OR FEVER; Start 06/30/16 at 16:30 Acetaminophen/ Hydrocodone Bitart ([place] (5/325)) 1 tab Q6H PRN PO MODERATE PAIN LEVEL 4-6 Last administered on 07/18/16 00:29; Admin Dose 1 TAB; Start at 16:30 Acetaminophen/ Hydrocodone Bitart ([place] (5/325)) 2 tab Q6H PRN PO SEVERE PAIN LEVEL 7-10 Last administered on 07/10/16 13:15; Admin Dose 2 TAB; Start at 16:30 Morphine Sulfate (morphine) 2 mg Q4H PRN IV SEVERE PAIN LEVEL 7-10 Last administered on 07/18/16 20:20; Admin Dose 2 MG; Start 06/30/16 at 16:30 Docusate Sodium (Colace) 100 mg Q12H PRN PO CONSTIPATION; Start 06/30/16 at 16: 30 Magnesium Hydroxide (Milk Of Mag) 30 ml DAILY PRN PO CONSTIPATION; Start at 16:30 Bisacodyl (Dulcolax Supp) 10 mg DAILY PRN [place] CONSTIPATION; Start 06/30/16 at 16 :30 Pantoprazole 40 mg 40 mg DAILY@06 IV Last administered on 07/19/16 06:23; Admin Dose 40 MG; Start 07/01/16 at 06:00 Erythromycin Lactobionate 250 mg/Sodium Chloride 100 ml @ 100 mls/hr Q6 IVPB Last administered on 07/19/16 06:23; Admin Dose 100 MLS/HR; Start 07/09/16 at 00 :00 Propofol 100 ml @ 2.1 mls/hr Q12H IV Last administered on 07/19/16 08:02; Admin Dose 16.8 MLS/HR; Start 07/12/16 at 21:00 Norepinephrine 16 mg/Dextrose 500 ml @ 1.87 mls/hr TITRATE IV Last administered on 07/13/16 13:43; Admin Dose 18.75 MLS/HR; Start 07/13/16 at 08: 00 Fluconazole/ Sodium Chloride (Diflucan 100 Mg/ NS (Pmx)) 50 ml @ 50 mls/hr Q24H IVPB Last administered on 07/19/16 11:37; Admin Dose 50 MLS/HR; Start at 11:00 Albuterol (Ventolin Hfa) 2 puff Q4H PRN INH SHORTNESS OF BREATH Last administered on 07/17/16 03:50; Admin Dose 2 PUFF; Start 07/14/16 at 22:00 Ipratropium [place] 4 puff 4 puff Q4H PRN INH SHORTNESS OF BREATH Last administered on 07/17/16 03:50; Admin Dose 4 PUFF; Start 07/14/16 at 22:00 Meropenem (Merrem 500 Mg/ 100 ml (Pmx)) 100 ml @ 200 mls/hr Q24H IVPB Last administered on 07/18/16 21:18; Admin Dose 200 MLS/HR; Start 07/16/16 at 21:00 Heparin Sodium (Porcine) (Heparin (5000 Units/0.5 ml)) 5,000 unit BID SC Last administered on 07/19/16 09:08; Admin Dose 5,000 UNIT; Start 07/18/16 at 21:00 Metoclopramide HCl 5 mg 5 mg Q8 IV Last administered on 07/19/16 06:23; Admin Dose 5 MG; Start 07/18/16 at 22:00 Sodium Chloride (NS) 1,000 ml @ 100 mls/hr Q10H IV Last administered on 10:12; Admin Dose 100 MLS/HR; Start 07/19/16 at 09:30 Diagnostic Test (Pha) (Accu-Chek) 1 ea Q4 XX ; Start 07/19/16 at 13:00 Miscellaneous Information (*Rx Drug Level Order Reminder*) 1 ONCE ONCE XX ; Start 07/20/16 at 05:00; Stop 07/20/16 at 05:01 Procedures Procedures PROCEDURE: XR Chest. CLINICAL INDICATION: Shortness of breath. TECHNIQUE: Single frontal view. COMPARISON: 07/17/2016. FINDINGS: The endotracheal tube, nasogastric tube, left internal jugular vein temporary dialysis catheter, and right internal jugular vein implanted port central venous catheter remain in satisfactory position. There is patchy air space disease throughout the left lung consistent with asymmetric pulmonary edema or pneumonia, worse than seen previously. There is left basilar atelectasis or pneumonia, also worse than seen previously. The heart is enlarged. There is no pleural effusion. There is no pneumothorax. IMPRESSION: 1. Worse appearance of the lungs. 2. No other change from 07/17/2016. RPTAT: QQ .Naldo Oneal MD, Date Time Electronically viewed and signed by .Naldo Oneal MD, MD on 07/18/2016 08:13 .R/ CC: PARDEEP CORRAL MD, B[place]AT[place] M. July 19, 2016 11:49
--- NOTE | 2016-07-19 12:46 | PN ---
DATE: 07/19/2016 SUBJECTIVE: No changes overnight. The patient is awake, comfortable on vent. No fevers. VITAL SIGNS: Temperature 98.5, pulse 89, respirations 16, blood pressure 93/65, saturation 100 on F IO2 of 35: WBC 12.6, H and H 12 and 35.5, platelets 116, neutrophils 89.7. BUN 60, creatinine 2.67 . ANTIMICROBIALS: 1. Fluconazole. 2. Meropenem. 3. Vancomycin. 4. Erythromycin. INDWELLINGS: Endotracheal tube, Kale, Langley catheter, right chest Port-A-Cath and intraabdominal drainage catheters. PHYSICAL EXAMINATION: GENERAL: This is well-developed, chronically ill-appearing, elderly man who is lying comfortably in bed. The patient is awake, in no distress. HEENT: Head atraumatic, normocephalic. Sclerae anicteric. Buccal mucosa dry. NECK: Supple, trachea midline. CHEST: Rise symmetrical. Breath sounds diminished to bases. HEART: S1, S2. ABDOMEN: Soft. Bowel tones present. EXTREMITIES: Without cyanosis. ASSESSMENT: 1. Sepsis with shock. 2. Acute respiratory failure secondary to aspiration pneumonia. 3. Status post Escherichia coli bacteremia on admission with repeat blood cultures negative. 4. Metastatic urothelial cancer. 5. Biliary obstruction by the tumor growing over the stent. 6. Urinary tract infection with urine culture growing Chelsy albicans and Pseudomonas aeruginosa. 7. Acute renal failure on hemodialysis. 8. Diabetic gastroparesis. PLAN: The patient remains stable and comfortable on vent. Continue present care. Continue weaning trials as per pulmonary team. Gastroenterology on case, pending another duodenal stent placement w hen the patient is more stable. Dictated By: MARIELA ROBIN HEAD OF CONSERVATION for PENNY BARRIGA/ANN MARIE Conf#: [id number] DID#: [id number]
[2016-07-19] MEDS: ALBUMIN HUMAN 25% 100 ML IV SCH ×2 (12:52→20:28)
--- NOTE | 2016-07-19 13:34 | PN ---
Date/Time of Note Date/Time of Note DATE: 07/19/16 TIME: 13:33 Assessment/Plan Lines/Catheters IV Catheter Type (from [facility]): JORDY [place] in Place (from [facility]): Yes Assessment/Plan Chief Complaint/Hosp Course 1. Sepsis 2nd biliary obstruction s/p attempted unsuccessful ERCP 07/03. s/p PTC 07/05. s/p EGD showing tumor growing over stent and causing obstruction 07/12. Aspiration pneumonia s/p intubation 07/12. -abx -ivf -ngt -supportive care -Drain -Vent management and pulmonary toilette -Chemo [place] after infection controlled 2. Transaminitis with Hyperbilirubinemia ? 2nd biliary obstruction ? 2nd tumor s /p PTC 07/05 -as above 3. Metastatic Urothelial cancer with ? carcinomatosis -heme/onc for tx after sepsis resolution 4. Hx obstructed duodenum with gastric outlet obstruction s/p duodenal stent. Now with hiccups and difficulty eating. s/p EGD showing tumor growing over stent and causing obstruction 07/12 -NGT -Chemo [place] if possible 5. Steatosis -Eventual nutrition and lifestyle optimization 6. Weight loss probably secondary to above -As above Thank you, Problems: Subjective 24 Hr Interval Summary Remains intubated. s/p EGD 07/12 > tumor growing over stent and causing obstruction. s/p PTC 07/05. No f/c. No cough. No seizure. No blood per mouth/ rectum. No bloating. No rashes. Exam/Review of Systems Vital Signs Vitals Vital Signs Date Time Temp Pulse Resp B/P Pulse Ox O2 Delivery O2 Flow Rate FiO2 07/19/16 12:00 73 07/19/16 11:35 19 99 35 07/19/16 10:00 93/65 Mechanical Ventilator 07/19/16 08:00 98.5 Intake and Output 07/18/16 07/18/16 07/19/16 15:00 23:00 07:00 Intake Total 1300.4 ml 934.4 ml 934.4 ml Output Total 5300 ml 0 ml 0 ml Balance -3999.6 ml 934.4 ml 934.4 ml Exam Free Text/Dictation Constitutional: Intubated Psych: Ventilated Head: atraumatic, normocephalic Eyes: EOMI, PERRL, nl conjunctiva, icterus ENMT: mucosa pink and moist, nl external ears & nose, nl lips & teeth Neck: non-tender, supple, No jvd, No masses Respiratory: normal air movement, No congested cough, No labored breathing Cardiovascular: regular rate and rhythm, No edema Gastrointestinal: NT, soft, No distended, No rebound or guarding Genitourinary - Male: nl scrotum Musculoskeletal: nl extremities to inspection, nl gait and stance, No joint tenderness Extremities: normal pulses, No calf tenderness, No cyanosis Neurological: nl mental status, nl speech, nl strength Skin: nl turgor, jaundice. No diaphoresis, No rash or lesions Lymph: No nl lymph nodes (Inguinal) Results Result Diagram: 07/19/16 0515 07/19/16 0515 DIAMOND FITZGERALD MD July 19, 2016 13:34
[2016-07-19] MEDS: TPN 1,000 ML IV SCH (13:53)
[2016-07-19] MEDS: ACCU-CHEK XX SCH ×3 (13:58→21:48)
--- NOTE | 2016-07-19 14:19 | RADRPT ---
PROCEDURE: US Abdomen. CLINICAL INDICATION: abdominal pain , biliary obstruction TECHNIQUE: Multiple real-time images were acquired of the patient's right upper quadrant abdomen a nd retroperitoneum utilizing a high resolution transducer. COMPARISON: 06/30/2016 FINDINGS: The study is limited due to overlying bowel gas. The pancreas was not well seen. The liver and gallbladder are partially visualized. The liver demonstrates slightly increased echogenicity. The liver is normal in size and no focal so lid lesions are seen. The liver measures 15.7 cm in length. The portal vein is patent with normal di rection of flow. No intrahepatic biliary dilatation is seen. No gallstones are identified within the gallbladder. There is no pericholecystic fluid or gallbladd er wall thickening. The common bile duct measures 8 mm in maximal dimension. There is a moderate amount of ascites and a small right pleural effusion. The right kidney is normal in size, and demonstrate normal echogenicity and cortical thickness. The right kidney measures 10.7 cm in long dimension. There is no evidence of hydronephrosis. There are no kidney stones. RPTAT: AA IMPRESSION: Limited study. Mild fatty infiltration of the liver. New moderate amount of ascites and small right pleural effusion. Mildly dilated CBD, measuring 8 mm, decreased. .Anthony Ferguson MD, MD Date Time Electronically viewed and signed by .Anthony Ferguson MD, MD on 07/19/2016 14:19 .S/
[2016-07-19] MEDS: IPRATROPIUM (HFA) 12.9 GM INHALER INH PRN (17:43)
[2016-07-19] MEDS: ALBUTEROL 18 GM INHALER INH PRN (17:43)
[2016-07-19] MEDS: MEROPENEM 500 MG/100 ML (PMX) 100 ML IVPB SCH (21:48)
[2016-07-19] MEDS: ONDANSETRON 4 MG INJ IV PRN (23:54)
[2016-07-20] VITALS (46 sets, daily range): BP systolic 98–147; BP diastolic 55–90; PULSE 74–105; RESP 14–37
[2016-07-20] MEDS: ACCU-CHEK XX SCH ×6 (01:25→20:46)
[2016-07-20] MEDS: PANTOPRAZOLE 40 MG INJ IV SCH (05:17)
[2016-07-20] MEDS: PROPOFOL 100 ML IV SCH (05:17)
[2016-07-20] MEDS: ALBUMIN HUMAN 25% 100 ML IV SCH (05:17)
[2016-07-20] MEDS: METOCLOPRAMIDE 10 MG INJ IV SCH ×3 (05:18→23:32)
[2016-07-20 05:42] LABS: ADD SCAN DIFF NO
[2016-07-20 06:04] LABS: ABNORMAL IP MESSAGE 1; BASOPHILS % 0.1 % (0.0-2.0); EOSINOPHILS % 0.3 % (0.0-7.0); HEMATOCRIT 33.6 % (42.0-52.0); HEMOGLOBIN 11.2 g/dl (14.0-18.0); LYMPHOCYTES # 0.5 10^3/ul (0.8-2.9); LYMPHOCYTES % 3.1 % (15.0-51.0); MAGNESIUM 2.1 mg/dl (1.7-2.5); MEAN CORPUSCULAR HEMOGLOBIN 30.6 pg (29.0-33.0); MEAN CORPUSCULAR HGB CONC 33.3 g/dl (32.0-37.0); MEAN CORPUSCULAR VOLUME 91.8 fl (82.0-101.0); MEAN PLATELET VOLUME 11.3 fl (7.4-10.4); MONOCYTE # 0.4 10^3/ul (0.3-0.9); MONOCYTES % 2.6 % (0.0-11.0); NEUTROPHIL # 12.8 10^3/ul (1.6-7.5); NEUTROPHILS % 88.7 % (39.0-77.0); NUCLEATED RED BLOOD CELLS% 0.3 /100WBC (0.0-0.0); PHOSPHORUS 6.4 mg/dl (2.5-4.9); PLATELET COUNT 106 10^3/UL (140-415); RED BLOOD COUNT 3.66 10^6/ul (4.70-6.10); WHITE BLOOD COUNT 14.4 10^3/ul (4.8-10.8)
[2016-07-20 06:06] LABS: ALBUMIN 2.6 g/dl (3.3-4.9); POTASSIUM 5.2 mmol/L (3.5-5.1)
[2016-07-20 06:09] LABS: ALBUMIN/GLOBULIN RATIO 1.04; BILIRUBIN,DIRECT 4.3 mg/dl (0.00-0.20); BILIRUBIN,INDIRECT 0.4 mg/dl (0-1.1); BILIRUBIN,TOTAL 4.7 mg/dl (0.2-1.3); TOTAL PROTEIN 5.1 g/dl (6.1-8.1)
[2016-07-20 06:12] LABS: PREALBUMIN 25.4 mg/dl (17.6-36.0)
[2016-07-20 06:23] LABS: CREATININE 3.1 mg/dl (0.61-1.24)
[2016-07-20] MEDS: ERYTHROMYCIN LACTOBIONATE 250 MG in SOD CHLORIDE 0.9% 100 ML IVPB SCH ×3 (06:34→19:16)
--- NOTE | 2016-07-20 06:46 | RADRPT ---
PROCEDURE: XR Chest. CLINICAL INDICATION: Pneumonia TECHNIQUE: An AP view of the chest was obtained. COMPARISON: Chest x-ray dated 07/18/2016 FINDINGS: The endotracheal tube tip is approximately 3.0 cm above the valdo. The tip of the enteric tube pr ojects over the right upper quadrant. There is a right chest Port-A-Cath with tip near the cavoatria l junction. There is a left internal jugular central venous catheter with tip near the cavoatrial ju nction. Lung volumes are low. There is prominence of the interstitial markings. There are left lung alveol ar opacities and small left pleural effusion. No pneumothorax is seen. The cardiomediastinal silho uette is mildly enlarged . The osseous structures unremarkable IMPRESSION: 1. Diffuse prominent interstitial markings suggesting interstitial edema. There are left lung alve olar opacities which may reflect asymmetric pulmonary edema or superimposed pneumonia. This is mild ly improved when compared to the prior examination. 2. Small left pleural effusion, not significantly changed. 3. Tubes and lines, as described above. RPTAT: HH .Carolyn Lew MD, MD Date Time Electronically viewed and signed by .Carolyn Lew MD, on 07/20/2016 06:46 .G/
[2016-07-20] MEDS: IPRATROPIUM (HFA) 12.9 GM INHALER INH PRN (08:55)
[2016-07-20] MEDS: ALBUTEROL 18 GM INHALER INH PRN (08:56)
[2016-07-20] MEDS: HEPARIN 5,000 UNIT/0.5 ML VIAL SC SCH ×2 (09:25→20:43)
--- NOTE | 2016-07-20 10:04 | CONS ---
Date/Time of Note Date/Time of Note DATE: 07/20/16 TIME: 09:55 Assessment/Plan Assessment/Plan Chief Complaint/Hosp Course 60 year old male with metastatic urothelial cancer who had presented during the last admission with gastric outlet obstruction status post duodenal stent . Has since been diagnosed with metastatic urothelial cancer. Patient now readmitted with sepsis with abdominal pain. He is currently in critical condition, intubated in the ICU # metastatic urothelial cancer - CT A/P demonstrates infiltrative neoplasm involving the cecum, ascending colon and hepatic flexure with extension of tumor to the serosa involving the lateral wall of the duodenum. This has advanced as compared to 05/27/2016. - I had planned to start gemcitabine 1000 mg/m2 D1, 8 and carboplatin AUC 4.5 D1 however needed to wait till bacteremia adequately treated and now patient with left lung aspiration pneumonia. Given rapidly growing tumor, would want to start chemo ISSA when patient more stable. Patient now extubated, when patient transferred out of ICU and more ambulatory, will start gemcitabine/carboplatin with dose adjustments depending on renal and hepatic function. Would use 50% of dose of carboplatin in ESRD on HD; would advise HD 6-12 hours after gemcitabine given with caution due to hyperbilirubinemia with initial dose 800 mg/m2. - discussed with Dr. De, duodenal stent obstructed by tumor, status post new internal biliary catheter 07/11/16. - Dr. Nolan to arrange for POLST form to be filled out - Hg has improved after blood transfusion and is now > 10 # E. coli bacteremia - with sepsis secondary to biliary obstruction s/p attempted unsuccessful ERCP 07/03, s/p external percutaneous biliary drainage 07/05 - Last blood cultures were clear from 07/05/16 - will hold on removing the port for now. If ID feels it is necessary to remove and if bacteremia does not clear, will remove at that time # Biliary obstruction - s/p percutaneous biliary drain and status post new biliary catheter 07/11/16 - status post EGD that demonstrated gastric outlet obstruction with tumor growing over stent and almost complete obstructing lumen, plan for another duodenal stent when more stable; if bilirubin continues to increase, radiologist will need to evaluate biliary drainage - US Abdomen 07/19/16 demonstrated mild fatty infiltration of liver, new moderate ascites, mildly dilated CBD, 8 mm, decreased - On TPN, no feeds per GI # Diabetic Gastroparesis - cont reglan; erythromycin added as prokinetic agent per GI # CHARITY - Acute kidney injury secondary to acute tubular necrosis from septic shock and also contributing vancomycin - cont HD per renal Problems: Consultation Date/Type/Reason Admit Date/Time Jun 30, 2016 at 15:42 Initial Consult Date 06/30/16 Type of Consultation: Oncology Referring Provider: GAMALIEL HAIR MD 24 HR Interval Summary Free Text/Dictation Patient extubated recently, states that he is feeling well. Exam/Review of Systems Vital Signs Vitals Vital Signs Date Time Temp Pulse Resp B/P Pulse Ox O2 Delivery O2 Flow Rate FiO2 07/20/16 08:56 75 17 100 30 07/20/16 06:00 116/76 Mechanical Ventilator 07/20/16 04:00 97.9 Intake and Output 07/19/16 07/19/16 07/20/16 15:00 23:00 07:00 Intake Total 1044.4 ml 674.4 ml 427.6 ml Output Total 125 ml 130 ml 70 ml Balance 919.4 ml 544.4 ml 357.6 ml Exam Constitutional: A&O ENMT: extubated, on NC Neck: non-tender, supple Respiratory: clear to auscultation Gastrointestinal: soft Musculoskeletal: nl extremities to inspection, nl gait and stance Results Result Diagram: 07/20/16 0500 07/20/16 0500 Results 24 hrs Laboratory Tests Test 07/19/16 13:04 07/19/16 16:57 07/19/16 21:48 07/20/16 01:25 Bedside Glucose 103 123 117 108 Test 07/20/16 04:51 07/20/16 05:00 07/20/16 09:20 Bedside Glucose 121 136 White Blood Count 14.4 H Red Blood Count 3.66 L Hemoglobin 11.2 L Hematocrit 33.6 L Mean Corpuscular Volume 91.8 Mean Corpuscular Hemoglobin 30.6 Mean Corpuscular Hemoglobin Concent 33.3 Red Cell Distribution Width 18.0 H Platelet Count 106 L Mean Platelet Volume 11.3 H Neutrophils % 88.7 H Lymphocytes % 3.1 L Monocytes % 2.6 Eosinophils % 0.3 Basophils % 0.1 Nucleated Red Blood Cells % 0.3 H Neutrophils # 12.8 H Lymphocytes # 0.5 L Monocytes # 0.4 Eosinophils # 0.0 Basophils # 0.0 Nucleated Red Blood Cells # 0.0 Sodium Level 141 Potassium Level 5.2 H Chloride Level 109 Carbon Dioxide Level 18 L Anion Gap 19 H Blood Urea Nitrogen 77 H Creatinine 3.10 H Glucose Level 116 Calcium Level 8.0 L Phosphorus Level 6.4 H Magnesium Level 2.1 Total Bilirubin 4.7 H Direct Bilirubin 4.30 H Indirect Bilirubin 0.4 Aspartate Amino Transf (AST/SGOT) 46 Alanine Aminotransferase (ALT/SGPT) 55 Alkaline Phosphatase 136 H Total Protein 5.1 L Albumin 2.6 L Globulin 2.50 Albumin/Globulin Ratio 1.04 Prealbumin 25.4 Triglycerides Level 986 H Random Vancomycin Level 14.6 Medications Medications Current Medications Ondansetron HCl (Zofran Inj) 4 mg Q6H PRN IV NAUSEA AND/OR VOMITING Last administered on 07/19/16 23:54; Admin Dose 4 MG; Start 06/30/16 at 16:30 Acetaminophen (Tylenol Tab) 650 mg Q6H PRN PO PAIN LEVEL 1-3 OR FEVER Last administered on 07/05/16 19:31; Admin Dose 650 MG; Start 06/30/16 at 16:30 Acetaminophen (Tylenol Supp) 650 mg Q6H PRN MO PAIN LEVEL 1-3 OR FEVER; Start 06/30/16 at 16:30 Acetaminophen/ Hydrocodone Bitart ([place] (5/325)) 1 tab Q6H PRN PO MODERATE PAIN LEVEL 4-6 Last administered on 07/18/16 00:29; Admin Dose 1 TAB; Start at 16:30 Acetaminophen/ Hydrocodone Bitart ([place] (5/325)) 2 tab Q6H PRN PO SEVERE PAIN LEVEL 7-10 Last administered on 07/10/16 13:15; Admin Dose 2 TAB; Start at 16:30 Morphine Sulfate (morphine) 2 mg Q4H PRN IV SEVERE PAIN LEVEL 7-10 Last administered on 07/18/16 20:20; Admin Dose 2 MG; Start 06/30/16 at 16:30 Docusate Sodium (Colace) 100 mg Q12H PRN PO CONSTIPATION; Start 06/30/16 at 16: 30 Magnesium Hydroxide (Milk Of Mag) 30 ml DAILY PRN PO CONSTIPATION; Start at 16:30 Bisacodyl (Dulcolax Supp) 10 mg DAILY PRN [place] CONSTIPATION; Start 06/30/16 at 16 :30 Pantoprazole 40 mg 40 mg DAILY@06 IV Last administered on 07/20/16 05:17; Admin Dose 40 MG; Start 07/01/16 at 06:00 Erythromycin Lactobionate 250 mg/Sodium Chloride 100 ml @ 100 mls/hr Q6 IVPB Last administered on 07/20/16 06:34; Admin Dose 100 MLS/HR; Start 07/09/16 at 00 :00 Propofol 100 ml @ 2.1 mls/hr Q12H IV Last administered on 07/20/16 05:17; Admin Dose 16.8 MLS/HR; Start 07/12/16 at 21:00 Norepinephrine 16 mg/Dextrose 500 ml @ 1.87 mls/hr TITRATE IV Last administered on 07/13/16 13:43; Admin Dose 18.75 MLS/HR; Start 07/13/16 at 08: 00 Fluconazole/ Sodium Chloride (Diflucan 100 Mg/ NS (Pmx)) 50 ml @ 50 mls/hr Q24H IVPB Last administered on 07/19/16 11:37; Admin Dose 50 MLS/HR; Start at 11:00 Albuterol (Ventolin Hfa) 2 puff Q4H PRN INH SHORTNESS OF BREATH Last administered on 07/20/16 08:56; Admin Dose 2 PUFF; Start 07/14/16 at 22:00 Ipratropium [place] 4 puff 4 puff Q4H PRN INH SHORTNESS OF BREATH Last administered on 07/20/16 08:55; Admin Dose 4 PUFF; Start 07/14/16 at 22:00 Meropenem (Merrem 500 Mg/ 100 ml (Pmx)) 100 ml @ 200 mls/hr Q24H IVPB Last administered on 07/19/16 21:48; Admin Dose 200 MLS/HR; Start 07/16/16 at 21:00 Heparin Sodium (Porcine) (Heparin (5000 Units/0.5 ml)) 5,000 unit BID SC Last administered on 07/20/16 09:25; Admin Dose 5,000 UNIT; Start 07/18/16 at 21:00 Metoclopramide HCl (Reglan) 5 mg Q8 IV Last administered on 07/20/16 05:18; Admin Dose 5 MG; Start 07/18/16 at 22:00 Diagnostic Test (Pha) 1 ea 1 ea Q4 XX Last administered on 07/20/16 09:23; Admin Dose 1 EA; Start 07/19/16 at 13:00 Total Parenteral Nutrition (Tpn) 1,000 ml @ 30 mls/hr Q24H IV Last administered on 07/19/16 13:53; Admin Dose 30 MLS/HR; Start 07/19/16 at 14:00 DARBY KNOWLES MD July 20, 2016 10:04
--- NOTE | 2016-07-20 10:29 | PN ---
Date/Time of Note Date/Time of Note DATE: 07/20/16 TIME: 10:24 Assessment/Plan VTE Prophylaxis VTE Prophylaxis Intervention: heparin Lines/Catheters [facility] Urinary Cath still in place: Yes Reason Cath still needed: other (indicate) (Intubated and sedated) Assessment/Plan Assessment/Plan 60 year old male with metastatic uroepithelial cancer who had presented during the last admission with gastric outlet obstruction status post duodenal stent . Has since been diagnosed with metastatic urothelial cancer Patient now readmitted with sepsis with abdominal pain. He is currently in critical condition, intubated in the ICU 1. Septic Shock 2/2 Aspiration PNA : Now off pressors 2. Transaminitis with Hyperbilirubinemia 2nd biliary obstruction from metastatic cancer 3. Metastatic Urothelial cancer with possible carcinomatosis 4. Tumor Obstructed duodenum with gastric outlet obstruction s/p duodenal stent 06/02/16 and with new ERCP showing tumor eroding stent and completely obstructing lumen 5. Steatosis 6. Acute Respiratory Failure secondary to aspiration pneumonia 7. Acute kidney injury secondary to acute tubular necrosis from septic shock and also contributing vancomycin requiring HD 8. S/p ecoli bacteremia and pseudomonas UTI 9. Chelsy UTI on fluconazole 10. TPN therapy PLAN: * Continue ICU ventilator weaning and management * Continue abx for bilateral pneumonia * Not a candidate for chemo at this time * Continue HD for CHARITY and pulm fluid overload /continue albumin on a daily basis for 3 more days * Palliative care consulting on the case / penitentiary prognosis poor * To be started on TPN per pulm as no feeds for now per GI * goal is for extubation and after which GI will try to replace stent and patient may also get chemo. CRITICAL CARE TIME: >35 mins Subjective 24 Hr Interval Summary Free Text/Dictation Patient seen and evaluated. Spoke with at bedside, also spoke with nursing staff, no acute overnight events. Remains intubated, not requiring pressor support however. Status post hemodialysis today with 2 L of fluid removed. Exam/Review of Systems Vital Signs Vitals Vital Signs Date Time Temp Pulse Resp B/P Pulse Ox O2 Delivery O2 Flow Rate FiO2 07/20/16 10:00 85 30 129/74 100 Mechanical Ventilator 07/20/16 10:00 35 07/20/16 08:00 97.5 Intake and Output 07/19/16 07/19/16 07/20/16 15:00 23:00 07:00 Intake Total 1044.4 ml 674.4 ml 427.6 ml Output Total 125 ml 130 ml 70 ml Balance 919.4 ml 544.4 ml 357.6 ml Exam Constitutional: alert despite propofol /seems less lethargic / follows commands / responds to greetings ENMT: intubated / icteric ++ Respiratory: clear to auscultation / diminished Cardiovascular: regular rate and rhythm Gastrointestinal: soft, biliary drainage still in place with minimal greenish drain No distended Musculoskeletal: Daniel edema pitting / diffuse anasarca Genitourinary - Male: No nl scrotum (severe scrotal edema) Results Result Diagram: 07/20/16 0500 07/20/16 0500 Results 24 hrs Laboratory Tests Test 07/19/16 13:04 07/19/16 16:57 07/19/16 21:48 07/20/16 01:25 Bedside Glucose 103 123 117 108 Test 07/20/16 04:51 07/20/16 05:00 07/20/16 09:20 Bedside Glucose 121 136 White Blood Count 14.4 H Red Blood Count 3.66 L Hemoglobin 11.2 L Hematocrit 33.6 L Mean Corpuscular Volume 91.8 Mean Corpuscular Hemoglobin 30.6 Mean Corpuscular Hemoglobin Concent 33.3 Red Cell Distribution Width 18.0 H Platelet Count 106 L Mean Platelet Volume 11.3 H Neutrophils % 88.7 H Lymphocytes % 3.1 L Monocytes % 2.6 Eosinophils % 0.3 Basophils % 0.1 Nucleated Red Blood Cells % 0.3 H Neutrophils # 12.8 H Lymphocytes # 0.5 L Monocytes # 0.4 Eosinophils # 0.0 Basophils # 0.0 Nucleated Red Blood Cells # 0.0 Sodium Level 141 Potassium Level 5.2 H Chloride Level 109 Carbon Dioxide Level 18 L Anion Gap 19 H Blood Urea Nitrogen 77 H Creatinine 3.10 H Glucose Level 116 Calcium Level 8.0 L Phosphorus Level 6.4 H Magnesium Level 2.1 Total Bilirubin 4.7 H Direct Bilirubin 4.30 H Indirect Bilirubin 0.4 Aspartate Amino Transf (AST/SGOT) 46 Alanine Aminotransferase (ALT/SGPT) 55 Alkaline Phosphatase 136 H Total Protein 5.1 L Albumin 2.6 L Globulin 2.50 Albumin/Globulin Ratio 1.04 Prealbumin 25.4 Triglycerides Level 986 H Random Vancomycin Level 14.6 Medications Medications Current Medications Ondansetron HCl (Zofran Inj) 4 mg Q6H PRN IV NAUSEA AND/OR VOMITING Last administered on 07/19/16 23:54; Admin Dose 4 MG; Start 06/30/16 at 16:30 Acetaminophen (Tylenol Tab) 650 mg Q6H PRN PO PAIN LEVEL 1-3 OR FEVER Last administered on 07/05/16 19:31; Admin Dose 650 MG; Start 06/30/16 at 16:30 Acetaminophen (Tylenol Supp) 650 mg Q6H PRN OR PAIN LEVEL 1-3 OR FEVER; Start 06/30/16 at 16:30 Acetaminophen/ Hydrocodone Bitart ([place] (5/325)) 1 tab Q6H PRN PO MODERATE PAIN LEVEL 4-6 Last administered on 07/18/16 00:29; Admin Dose 1 TAB; Start at 16:30 Acetaminophen/ Hydrocodone Bitart ([place] (5/325)) 2 tab Q6H PRN PO SEVERE PAIN LEVEL 7-10 Last administered on 07/10/16 13:15; Admin Dose 2 TAB; Start at 16:30 Morphine Sulfate (morphine) 2 mg Q4H PRN IV SEVERE PAIN LEVEL 7-10 Last administered on 07/18/16 20:20; Admin Dose 2 MG; Start 06/30/16 at 16:30 Docusate Sodium (Colace) 100 mg Q12H PRN PO CONSTIPATION; Start 06/30/16 at 16: 30 Magnesium Hydroxide (Milk Of Mag) 30 ml DAILY PRN PO CONSTIPATION; Start at 16:30 Bisacodyl (Dulcolax Supp) 10 mg DAILY PRN OR CONSTIPATION; Start 06/30/16 at 16 :30 Pantoprazole 40 mg 40 mg DAILY@06 IV Last administered on 07/20/16 05:17; Admin Dose 40 MG; Start 07/01/16 at 06:00 Erythromycin Lactobionate 250 mg/Sodium Chloride 100 ml @ 100 mls/hr Q6 IVPB Last administered on 07/20/16 06:34; Admin Dose 100 MLS/HR; Start 07/09/16 at 00 :00 Propofol 100 ml @ 2.1 mls/hr Q12H IV Last administered on 07/20/16 05:17; Admin Dose 16.8 MLS/HR; Start 07/12/16 at 21:00 Norepinephrine 16 mg/Dextrose 500 ml @ 1.87 mls/hr TITRATE IV Last administered on 07/13/16 13:43; Admin Dose 18.75 MLS/HR; Start 07/13/16 at 08: 00 Fluconazole/ Sodium Chloride (Diflucan 100 Mg/ NS (Pmx)) 50 ml @ 50 mls/hr Q24H IVPB Last administered on 07/19/16 11:37; Admin Dose 50 MLS/HR; Start at 11:00 Albuterol (Ventolin Hfa) 2 puff Q4H PRN INH SHORTNESS OF BREATH Last administered on 07/20/16 08:56; Admin Dose 2 PUFF; Start 07/14/16 at 22:00 Ipratropium [place] 4 puff 4 puff Q4H PRN INH SHORTNESS OF BREATH Last administered on 07/20/16 08:55; Admin Dose 4 PUFF; Start 07/14/16 at 22:00 Meropenem (Merrem 500 Mg/ 100 ml (Pmx)) 100 ml @ 200 mls/hr Q24H IVPB Last administered on 07/19/16 21:48; Admin Dose 200 MLS/HR; Start 07/16/16 at 21:00 Heparin Sodium (Porcine) (Heparin (5000 Units/0.5 ml)) 5,000 unit BID SC Last administered on 07/20/16 09:25; Admin Dose 5,000 UNIT; Start 07/18/16 at 21:00 Metoclopramide HCl (Reglan) 5 mg Q8 IV Last administered on 07/20/16 05:18; Admin Dose 5 MG; Start 07/18/16 at 22:00 Diagnostic Test (Pha) 1 ea 1 ea Q4 XX Last administered on 07/20/16 09:23; Admin Dose 1 EA; Start 07/19/16 at 13:00 Total Parenteral Nutrition (Tpn) 1,000 ml @ 30 mls/hr Q24H IV Last administered on 07/19/16 13:53; Admin Dose 30 MLS/HR; Start 07/19/16 at 14:00 Procedures Procedures PROCEDURE: XR Chest. CLINICAL INDICATION: Pneumonia TECHNIQUE: An AP view of the chest was obtained. COMPARISON: Chest x-ray dated 07/18/2016 FINDINGS: The endotracheal tube tip is approximately 3.0 cm above the valdo. The tip of the enteric tube projects over the right upper quadrant. There is a right chest Port-A-Cath with tip near the cavoatrial junction. There is a left internal jugular central venous catheter with tip near the cavoatrial junction. Lung volumes are low. There is prominence of the interstitial markings. There are left lung alveolar opacities and small left pleural effusion. No pneumothorax is seen. The cardiomediastinal silhouette is mildly enlarged . The osseous structures unremarkable IMPRESSION: 1. Diffuse prominent interstitial markings suggesting interstitial edema. There are left lung alveolar opacities which may reflect asymmetric pulmonary edema or superimposed pneumonia. This is mildly improved when compared to the prior examination. 2. Small left pleural effusion, not significantly changed. 3. Tubes and lines, as described above. RPTAT: .Carolyn Lew MD, MD Date Time Electronically viewed and signed by .Carolyn Lew MD, MD on 07/20/2016 06 :46 .G/ CC: [address] [place] M. July 20, 2016 10:29
[2016-07-20 11:06] LABS: AADO2 Arterial 85.8 mmHg (7.0-24.0); Allen Test ACCEPTAB; Arterial Base Excess -3.5 mmol/L (-3.0-3); Arterial COHb 0.3 % (0.0-3.0); Arterial Fraction of Oxyhgb 95.6 % (93.0-99.0); Arterial HCO3 20.6 mmol/L (22.0-26.0); Arterial MetHb 0.4 % (0.0-1.5); Arterial Total Hemglobin 12.4 g/dl (12.0-18.0); Blood Gas PS 10; MODE VENT - AC
--- NOTE | 2016-07-20 11:12 | CONS ---
Date/Time of Note Date/Time of Note DATE: 07/20/16 TIME: 11:08 Assessment/Plan Assessment/Plan Additional Assessment/Plan Chest x-ray was reviewed from today which is showing continued improvement in left lung infiltrates. Endotracheal tube is at an adequate level. Ventilator setting; AC of 16, tidal volume 500, PEEP of 5, 30% FiO2. Patient has been on propofol at 40 mics per kilogram per minute currently on hold. TPN has been started. Assessment recommendations; 1. Patient admitted for gastric outlet obstruction, has metastatic uroepithelial cancer. 2. Aspiration pneumonia involving left lung following EGD causing respiratory failure, however there has been substantial radiological improvement. 3. Renal failure, on hemodialysis. 2 L of fluid was taken off this morning. Hold sedation for now. Patient has been switched over to CPAP mode and currently has adequate parameters. We will repeat a blood gas in about half an hour. If the patient has adequate parameters then he will be extubated. Meanwhile continue current treatment. Overall prognosis is guarded. Next 35 minutes of critical care time was spent evaluating the patient. Consultation Date/Type/Reason Admit Date/Time Jun 30, 2016 at 15:42 Initial Consult Date 07/12/16 Type of Consultation: Pulmonary/critical care Referring Provider: GAMALIEL HAIR MD 24 HR Interval Summary Free Text/Dictation Patient's condition remains critical. However the patient is completely awake and alert. Not requiring any further sedation. Patient not requiring any further pressor support. Next General exam; elderly male, awake alert orally intubated, currently in no distress. Exam/Review of Systems Vital Signs Vitals Vital Signs Date Time Temp Pulse Resp B/P Pulse Ox O2 Delivery O2 Flow Rate FiO2 07/20/16 10:00 85 30 129/74 100 Mechanical Ventilator 07/20/16 10:00 35 07/20/16 08:00 97.5 Intake and Output 07/19/16 07/19/16 07/20/16 15:00 23:00 07:00 Intake Total 1044.4 ml 674.4 ml 427.6 ml Output Total 125 ml 130 ml 70 ml Balance 919.4 ml 544.4 ml 357.6 ml Exam HEENT examination; supple neck, no JVD. No lymphadenopathy. Midline trachea. Patient is icteric. Has multiple carious teeth. Pupils are equal and reactive to light bilaterally and equally. Orally intubated. No thyromegaly. Chest examination; diminished but clear breath sounds bilaterally. S1-S2 audible, no murmurs. Regular rhythm. Abdomen examination; soft, nondistended. No organomegaly. Bowel sounds audible. Extremity examination; no peripheral edema. MANAGER PEDIATRIC examination; patient is awake and alert moves all 4 extremities on command. Results Result Diagram: 07/20/16 0500 07/20/16 0500 Results 24 hrs Laboratory Tests Test 07/19/16 13:04 07/19/16 16:57 07/19/16 21:48 07/20/16 01:25 Bedside Glucose 103 123 117 108 Test 07/20/16 04:51 07/20/16 05:00 07/20/16 09:20 07/20/16 10:45 Bedside Glucose 121 136 White Blood Count 14.4 H Red Blood Count 3.66 L Hemoglobin 11.2 L Hematocrit 33.6 L Mean Corpuscular Volume 91.8 Mean Corpuscular Hemoglobin 30.6 Mean Corpuscular Hemoglobin Concent 33.3 Red Cell Distribution Width 18.0 H Platelet Count 106 L Mean Platelet Volume 11.3 H Neutrophils % 88.7 H Lymphocytes % 3.1 L Monocytes % 2.6 Eosinophils % 0.3 Basophils % 0.1 Nucleated Red Blood Cells % 0.3 H Neutrophils # 12.8 H Lymphocytes # 0.5 L Monocytes # 0.4 Eosinophils # 0.0 Basophils # 0.0 Nucleated Red Blood Cells # 0.0 Sodium Level 141 Potassium Level 5.2 H Chloride Level 109 Carbon Dioxide Level 18 L Anion Gap 19 H Blood Urea Nitrogen 77 H Creatinine 3.10 H Glucose Level 116 Calcium Level 8.0 L Phosphorus Level 6.4 H Magnesium Level 2.1 Total Bilirubin 4.7 H Direct Bilirubin 4.30 H Indirect Bilirubin 0.4 Aspartate Amino Transf (AST/SGOT) 46 Alanine Aminotransferase (ALT/SGPT) 55 Alkaline Phosphatase 136 H Total Protein 5.1 L Albumin 2.6 L Globulin 2.50 Albumin/Globulin Ratio 1.04 Prealbumin 25.4 Triglycerides Level 986 H Random Vancomycin Level 14.6 Blood Gas Specimen Source Blood arterial Arterial Blood Date Drawn 07/20/2016 10:45:31 AM Arterial Blood pH (Temp corrected) 7.399 Arterial Blood pCO2 (Temp correct) 34.1 L Arterial Blood pO2 (Temp corrected) 88.0 Arterial Blood HCO3 20.6 L Arterial Blood Base Excess -3.5 L Arterial Blood Oxygen Saturation 96.3 Og Test ACCEPTAB Arterial Blood Gas Puncture Site Right Radial Arterial Blood Carboxyhemoglobin 0.3 Arterial Blood Methemoglobin 0.4 Blood Gas A-a O2 Differential 85.8 H Oxyhemoglobin Percent 95.6 Total Hemoglobin 12.4 Blood Gas Temperature 37.0 Blood Gas Actual Respiration Rate 32 Blood Gas Modality VENT - AC FiO2 30.0 Blood Gas Low PEEP Setting 5.0 Blood Gas Pressure Support 10 Blood Gas Notified Whom JLD Blood Gas Notified Time 07/20/2016 11:06:03 AM Medications Medications Current Medications Ondansetron HCl (Zofran Inj) 4 mg Q6H PRN IV NAUSEA AND/OR VOMITING Last administered on 07/19/16 23:54; Admin Dose 4 MG; Start 06/30/16 at 16:30 Acetaminophen (Tylenol Tab) 650 mg Q6H PRN PO PAIN LEVEL 1-3 OR FEVER Last administered on 07/05/16 19:31; Admin Dose 650 MG; Start 06/30/16 at 16:30 Acetaminophen (Tylenol Supp) 650 mg Q6H PRN [place] PAIN LEVEL 1-3 OR FEVER; Start 06/30/16 at 16:30 Acetaminophen/ Hydrocodone Bitart ([place] (5/325)) 1 tab Q6H PRN PO MODERATE PAIN LEVEL 4-6 Last administered on 07/18/16 00:29; Admin Dose 1 TAB; Start at 16:30 Acetaminophen/ Hydrocodone Bitart ([place] (5/325)) 2 tab Q6H PRN PO SEVERE PAIN LEVEL 7-10 Last administered on 07/10/16 13:15; Admin Dose 2 TAB; Start at 16:30 Morphine Sulfate (morphine) 2 mg Q4H PRN IV SEVERE PAIN LEVEL 7-10 Last administered on 07/18/16 20:20; Admin Dose 2 MG; Start 06/30/16 at 16:30 Docusate Sodium (Colace) 100 mg Q12H PRN PO CONSTIPATION; Start 06/30/16 at 16: 30 Magnesium Hydroxide (Milk Of Mag) 30 ml DAILY PRN PO CONSTIPATION; Start at 16:30 Bisacodyl (Dulcolax Supp) 10 mg DAILY PRN [place] CONSTIPATION; Start 06/30/16 at 16 :30 Pantoprazole 40 mg 40 mg DAILY@06 IV Last administered on 07/20/16 05:17; Admin Dose 40 MG; Start 07/01/16 at 06:00 Erythromycin Lactobionate 250 mg/Sodium Chloride 100 ml @ 100 mls/hr Q6 IVPB Last administered on 07/20/16 06:34; Admin Dose 100 MLS/HR; Start 07/09/16 at 00 :00 Propofol 100 ml @ 2.1 mls/hr Q12H IV Last administered on 07/20/16 05:17; Admin Dose 16.8 MLS/HR; Start 07/12/16 at 21:00 Norepinephrine 16 mg/Dextrose 500 ml @ 1.87 mls/hr TITRATE IV Last administered on 07/13/16 13:43; Admin Dose 18.75 MLS/HR; Start 07/13/16 at 08: 00 Fluconazole/ Sodium Chloride (Diflucan 100 Mg/ NS (Pmx)) 50 ml @ 50 mls/hr Q24H IVPB Last administered on 07/19/16 11:37; Admin Dose 50 MLS/HR; Start at 11:00 Albuterol (Ventolin Hfa) 2 puff Q4H PRN INH SHORTNESS OF BREATH Last administered on 07/20/16 08:56; Admin Dose 2 PUFF; Start 07/14/16 at 22:00 Ipratropium [place] 4 puff 4 puff Q4H PRN INH SHORTNESS OF BREATH Last administered on 07/20/16 08:55; Admin Dose 4 PUFF; Start 07/14/16 at 22:00 Meropenem (Merrem 500 Mg/ 100 ml (Pmx)) 100 ml @ 200 mls/hr Q24H IVPB Last administered on 07/19/16 21:48; Admin Dose 200 MLS/HR; Start 07/16/16 at 21:00 Heparin Sodium (Porcine) (Heparin (5000 Units/0.5 ml)) 5,000 unit BID SC Last administered on 07/20/16 09:25; Admin Dose 5,000 UNIT; Start 07/18/16 at 21:00 Metoclopramide HCl (Reglan) 5 mg Q8 IV Last administered on 5/17/17at 05:18; Admin Dose 5 MG; Start 07/18/16 at 22:00 Diagnostic Test (Pha) 1 ea 1 ea Q4 XX Last administered on 07/20/16 09:23; Admin Dose 1 EA; Start 07/19/16 at 13:00 Total Parenteral Nutrition 1,000 ml @ 30 mls/hr Q24H IV Last administered on 13:53; Admin Dose 30 MLS/HR; Start 07/19/16 at 14:00 Albumin Human (Albumin Human 25%) 100 ml @ 0 mls/hr DAILY IV ; Start 07/21/16 at 09:00; Stop 07/24/16 at 08:[address] July 20, 2016 11:12
[2016-07-20] MEDS: FLUCONAZOLE 100 MG/NS (PMX) 50 ML IVPB SCH (11:14)
--- NOTE | 2016-07-20 13:35 | CONS ---
Date/Time of Note Date/Time of Note DATE: 07/20/16 TIME: 13:33 Assessment/Plan Assessment/Plan Chief Complaint/Hosp Course SUBJECTIVE: No changes overnight. The patient is awake, comfortable on vent. No fevers. ANTIMICROBIALS: 1. Fluconazole. 2. Meropenem. 3. Vancomycin. 4. Erythromycin. INDWELLINGS: Endotracheal tube, Kale, Langley catheter, right chest Port-A- Cath and intraabdominal drainage catheter. PHYSICAL EXAMINATION: GENERAL: This is well-developed, chronically ill-appearing, elderly man who is lying comfortably in bed. The patient is awake, in no distress. HEENT: Head atraumatic, normocephalic. Sclerae anicteric. Buccal mucosa dry. NECK: Supple, trachea midline. CHEST: Rise symmetrical. Breath sounds diminished to bases. HEART: S1, S2. ABDOMEN: Soft. Bowel tones present. EXTREMITIES: Without cyanosis. ASSESSMENT: 1. Sepsis with shock==> off pressors. 2. Acute respiratory failure secondary to aspiration pneumonia. 3. Status post Escherichia coli bacteremia on admission with repeat blood cultures negative. 4. Metastatic urothelial cancer. 5. Biliary obstruction by the tumor growing over the stent. 6. Urinary tract infection with urine culture growing Chelsy albicans and Pseudomonas aeruginosa. 7. Acute renal failure on hemodialysis. 8. Diabetic gastroparesis. PLAN: The patient remains stable, tolerates weaning, continue present care, abx. Pending duodenal stent placement when the patient is more stable. DW staff Problems: Consultation Date/Type/Reason Admit Date/Time Jun 30, 2016 at 15:42 Initial Consult Date 06/30/16 Type of Consultation: id Referring Provider: GAMALIEL HAIR MD Exam/Review of Systems Vital Signs Vitals Vital Signs Date Time Temp Pulse Resp B/P Pulse Ox O2 Delivery O2 Flow Rate FiO2 07/20/16 13:05 98 3.0 32 07/20/16 13:05 92 33 07/20/16 13:00 Nasal Cannula 07/20/16 10:00 129/74 07/20/16 08:00 97.5 Intake and Output 07/19/16 07/19/16 07/20/16 15:00 23:00 07:00 Intake Total 1044.4 ml 674.4 ml 427.6 ml Output Total 125 ml 130 ml 70 ml Balance 919.4 ml 544.4 ml 357.6 ml Results Result Diagram: 07/20/16 0500 07/20/16 0500 Results 24 hrs Laboratory Tests Test 07/19/16 16:57 07/19/16 21:48 07/20/16 01:25 07/20/16 04:51 Bedside Glucose 123 117 108 121 Test 07/20/16 05:00 07/20/16 09:20 07/20/16 10:45 White Blood Count 14.4 H Red Blood Count 3.66 L Hemoglobin 11.2 L Hematocrit 33.6 L Mean Corpuscular Volume 91.8 Mean Corpuscular Hemoglobin 30.6 Mean Corpuscular Hemoglobin Concent 33.3 Red Cell Distribution Width 18.0 H Platelet Count 106 L Mean Platelet Volume 11.3 H Neutrophils % 88.7 H Lymphocytes % 3.1 L Monocytes % 2.6 Eosinophils % 0.3 Basophils % 0.1 Nucleated Red Blood Cells % 0.3 H Neutrophils # 12.8 H Lymphocytes # 0.5 L Monocytes # 0.4 Eosinophils # 0.0 Basophils # 0.0 Nucleated Red Blood Cells # 0.0 Sodium Level 141 Potassium Level 5.2 H Chloride Level 109 Carbon Dioxide Level 18 L Anion Gap 19 H Blood Urea Nitrogen 77 H Creatinine 3.10 H Glucose Level 116 Calcium Level 8.0 L Phosphorus Level 6.4 H Magnesium Level 2.1 Total Bilirubin 4.7 H Direct Bilirubin 4.30 H Indirect Bilirubin 0.4 Aspartate Amino Transf (AST/SGOT) 46 Alanine Aminotransferase (ALT/SGPT) 55 Alkaline Phosphatase 136 H Total Protein 5.1 L Albumin 2.6 L Globulin 2.50 Albumin/Globulin Ratio 1.04 Prealbumin 25.4 Triglycerides Level 986 H Random Vancomycin Level 14.6 Bedside Glucose 136 Blood Gas Specimen Source Blood arterial Arterial Blood Date Drawn 07/20/2016 10:45:31 AM Arterial Blood pH (Temp corrected) 7.399 Arterial Blood pCO2 (Temp correct) 34.1 L Arterial Blood pO2 (Temp corrected) 88.0 Arterial Blood HCO3 20.6 L Arterial Blood Base Excess -3.5 L Arterial Blood Oxygen Saturation 96.3 Og Test ACCEPTAB Arterial Blood Gas Puncture Site Right Radial Arterial Blood Carboxyhemoglobin 0.3 Arterial Blood Methemoglobin 0.4 Blood Gas A-a O2 Differential 85.8 H Oxyhemoglobin Percent 95.6 Total Hemoglobin 12.4 Blood Gas Temperature 37.0 Blood Gas Actual Respiration Rate 32 Blood Gas Modality VENT - AC FiO2 30.0 Blood Gas Low PEEP Setting 5.0 Blood Gas Pressure Support 10 Blood Gas Notified Whom PRANAYD Blood Gas Notified Time 07/20/2016 11:06:03 AM Medications Medications Current Medications Ondansetron HCl (Zofran Inj) 4 mg Q6H PRN IV NAUSEA AND/OR VOMITING Last administered on 07/19/16 23:54; Admin Dose 4 MG; Start 06/30/16 at 16:30 Acetaminophen (Tylenol Tab) 650 mg Q6H PRN PO PAIN LEVEL 1-3 OR FEVER Last administered on 07/05/16 19:31; Admin Dose 650 MG; Start 06/30/16 at 16:30 Acetaminophen (Tylenol Supp) 650 mg Q6H PRN [place] PAIN LEVEL 1-3 OR FEVER; Start 06/30/16 at 16:30 Acetaminophen/ Hydrocodone Bitart ([place] (5/325)) 1 tab Q6H PRN PO MODERATE PAIN LEVEL 4-6 Last administered on 07/18/16 00:29; Admin Dose 1 TAB; Start at 16:30 Acetaminophen/ Hydrocodone Bitart ([place] (5/325)) 2 tab Q6H PRN PO SEVERE PAIN LEVEL 7-10 Last administered on 07/10/16 13:15; Admin Dose 2 TAB; Start at 16:30 Morphine Sulfate (morphine) 2 mg Q4H PRN IV SEVERE PAIN LEVEL 7-10 Last administered on 07/18/16 20:20; Admin Dose 2 MG; Start 06/30/16 at 16:30 Docusate Sodium (Colace) 100 mg Q12H PRN PO CONSTIPATION; Start 06/30/16 at 16: 30 Magnesium Hydroxide (Milk Of Mag) 30 ml DAILY PRN PO CONSTIPATION; Start at 16:30 Bisacodyl (Dulcolax Supp) 10 mg DAILY PRN [place] CONSTIPATION; Start 06/30/16 at 16 :30 Pantoprazole 40 mg 40 mg DAILY@06 IV Last administered on 07/20/16 05:17; Admin Dose 40 MG; Start 07/01/16 at 06:00 Erythromycin Lactobionate 250 mg/Sodium Chloride 100 ml @ 100 mls/hr Q6 IVPB Last administered on 07/20/16 12:06; Admin Dose 100 MLS/HR; Start 07/09/16 at 00 :00 Propofol 100 ml @ 2.1 mls/hr Q12H IV Last administered on 07/20/16 05:17; Admin Dose 16.8 MLS/HR; Start 07/12/16 at 21:00 Norepinephrine 16 mg/Dextrose 500 ml @ 1.87 mls/hr TITRATE IV Last administered on 07/13/16 13:43; Admin Dose 18.75 MLS/HR; Start 07/13/16 at 08: 00 Fluconazole/ Sodium Chloride (Diflucan 100 Mg/ NS (Pmx)) 50 ml @ 50 mls/hr Q24H IVPB Last administered on 07/20/16 11:14; Admin Dose 50 MLS/HR; Start at 11:00 Albuterol (Ventolin Hfa) 2 puff Q4H PRN INH SHORTNESS OF BREATH Last administered on 07/20/16 08:56; Admin Dose 2 PUFF; Start 07/14/16 at 22:00 Ipratropium [place] 4 puff 4 puff Q4H PRN INH SHORTNESS OF BREATH Last administered on 07/20/16 08:55; Admin Dose 4 PUFF; Start 07/14/16 at 22:00 Meropenem (Merrem 500 Mg/ 100 ml (Pmx)) 100 ml @ 200 mls/hr Q24H IVPB Last administered on 07/19/16 21:48; Admin Dose 200 MLS/HR; Start 07/16/16 at 21:00 Heparin Sodium (Porcine) (Heparin (5000 Units/0.5 ml)) 5,000 unit BID SC Last administered on 07/20/16 09:25; Admin Dose 5,000 UNIT; Start 07/18/16 at 21:00 Metoclopramide HCl (Reglan) 5 mg Q8 IV Last administered on 07/20/16 05:18; Admin Dose 5 MG; Start 07/18/16 at 22:00 Diagnostic Test (Pha) 1 ea 1 ea Q4 XX Last administered on 07/20/16 09:23; Admin Dose 1 EA; Start 07/19/16 at 13:00 Total Parenteral Nutrition 1,000 ml @ 30 mls/hr Q24H IV Last administered on t 13:53; Admin Dose 30 MLS/HR; Start 07/19/16 at 14:00 Albumin Human (Albumin Human 25%) 100 ml @ 0 mls/hr DAILY IV ; Start 07/21/16 at 09:00; Stop 07/24/16 at 08:59 MARIELA ROBIN NP July 20, 2016 13:35
[2016-07-20] MEDS ORDERED: VANCOMYCIN 750 MG in SOD CHLORIDE 0.9% 150 ML IVPB SCH (16:00)
[2016-07-20] MEDS: TPN 1,000 ML IV SCH (17:53)
--- NOTE | 2016-07-20 17:57 | CONS ---
Date/Time of Note Date/Time of Note DATE: 07/20/16 TIME: 17:56 Assessment/Plan Assessment/Plan Additional Assessment/Plan Additional Assessment/Plan IMPRESSION: 1. Biliary obstruction. Status post biliary stent, bilirubin is now going up, radiologist needs to evaluate biliary drain 2. Gram negative bacteremia, either from the urine or from the biliary system. 3. 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 4. 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 Gastric outlet obstruction secondary to tumor growing over the proximal part of the metallic stent in the duodenum. 6. Aspiration pneumonia 7. Renal failure, it is multifactorial 8. UTI with Pseudomonas and Chelsy in the urine, E. coli in the blood 9. 4+ pedal edema, fluid overload 10. Respiratory failure successfully extubated Plan Continue NG tube to intermittent suction since the Patient has got gastric outlet obstruction. Biliary obstruction status post plastic biliary stent both external and internal Respiratory failure patient is on vent Continue antibiotic When patient is more stable will place another duodenal stent. Patient is not a candidate for surgical bypass ID follow-up Continue dialysis Monitor liver function if bilirubin keeps going up and radiologist needs to evaluate biliary drainage TPN Sonogram of the liver, revealed fatty liver no obstruction Consultation Date/Type/Reason Admit Date/Time Jun 30, 2016 at 15:42 Initial Consult Date 06/30/16 Type of Consultation: id Referring Provider: GAMALIEL HAIR MD 24 HR Interval Summary Constitutional: improved Exam/Review of Systems Vital Signs Vitals Vital Signs Date Time Temp Pulse Resp B/P Pulse Ox O2 Delivery O2 Flow Rate FiO2 07/20/16 17:54 97 3.0 32 07/20/16 16:00 88 07/20/16 13:30 37 135/79 Nasal Cannula 07/20/16 12:00 98.0 Intake and Output 07/19/16 07/19/16 07/20/16 15:00 23:00 07:00 Intake Total 1044.4 ml 674.4 ml 427.6 ml Output Total 125 ml 130 ml 70 ml Balance 919.4 ml 544.4 ml 357.6 ml Exam Constitutional: alert, oriented, well developed Psych: nl mood/affect, no complaints Head: atraumatic, normocephalic Eyes: EOMI, PERRL, nl conjunctiva, nl lids, nl sclera ENMT: nl external ears & nose, nl lips & teeth, nl nasal mucosa & septum Neck: non-tender, supple Respiratory: clear to auscultation, normal air movement Cardiovascular: nl pulses, regular rate and rhythm Gastrointestinal: nl liver, spleen, non-tender, soft Musculoskeletal: nl extremities to inspection, nl gait and stance Extremities: normal pulses Neurological: USER SUPPORT ANALYST SUPERVISOR II-XII intact, nl mental status, nl speech, nl strength Skin: nl turgor, No rash or lesions Lymph: nl lymph nodes Results Result Diagram: 07/20/16 0500 07/20/16 0500 Results 24 hrs Laboratory Tests Test 07/19/16 21:48 07/20/16 01:25 07/20/16 04:51 07/20/16 05:00 Bedside Glucose 117 108 121 White Blood Count 14.4 H Red Blood Count 3.66 L Hemoglobin 11.2 L Hematocrit 33.6 L Mean Corpuscular Volume 91.8 Mean Corpuscular Hemoglobin 30.6 Mean Corpuscular Hemoglobin Concent 33.3 Red Cell Distribution Width 18.0 H Platelet Count 106 L Mean Platelet Volume 11.3 H Neutrophils % 88.7 H Lymphocytes % 3.1 L Monocytes % 2.6 Eosinophils % 0.3 Basophils % 0.1 Nucleated Red Blood Cells % 0.3 H Neutrophils # 12.8 H Lymphocytes # 0.5 L Monocytes # 0.4 Eosinophils # 0.0 Basophils # 0.0 Nucleated Red Blood Cells # 0.0 Sodium Level 141 Potassium Level 5.2 H Chloride Level 109 Carbon Dioxide Level 18 L Anion Gap 19 H Blood Urea Nitrogen 77 H Creatinine 3.10 H Glucose Level 116 Calcium Level 8.0 L Phosphorus Level 6.4 H Magnesium Level 2.1 Total Bilirubin 4.7 H Direct Bilirubin 4.30 H Indirect Bilirubin 0.4 Aspartate Amino Transf (AST/SGOT) 46 Alanine Aminotransferase (ALT/SGPT) 55 Alkaline Phosphatase 136 H Total Protein 5.1 L Albumin 2.6 L Globulin 2.50 Albumin/Globulin Ratio 1.04 Prealbumin 25.4 Triglycerides Level 986 H Random Vancomycin Level 14.6 Test 07/20/16 09:20 07/20/16 10:45 07/20/16 13:23 Bedside Glucose 136 123 Blood Gas Specimen Source Blood arterial Arterial Blood Date Drawn 07/20/2016 10:45:31 AM Arterial Blood pH (Temp corrected) 7.399 Arterial Blood pCO2 (Temp correct) 34.1 L Arterial Blood pO2 (Temp corrected) 88.0 Arterial Blood HCO3 20.6 L Arterial Blood Base Excess -3.5 L Arterial Blood Oxygen Saturation 96.3 Og Test ACCEPTAB Arterial Blood Gas Puncture Site Right Radial Arterial Blood Carboxyhemoglobin 0.3 Arterial Blood Methemoglobin 0.4 Blood Gas A-a O2 Differential 85.8 H Oxyhemoglobin Percent 95.6 Total Hemoglobin 12.4 Blood Gas Temperature 37.0 Blood Gas Actual Respiration Rate 32 Blood Gas Modality VENT - AC FiO2 30.0 Blood Gas Low PEEP Setting 5.0 Blood Gas Pressure Support 10 Blood Gas Notified Whom JLD Blood Gas Notified Time 07/20/2016 11:06:03 AM Medications Medications Current Medications Ondansetron HCl (Zofran Inj) 4 mg Q6H PRN IV NAUSEA AND/OR VOMITING Last administered on 07/19/16 23:54; Admin Dose 4 MG; Start 06/30/16 at 16:30 Acetaminophen (Tylenol Tab) 650 mg Q6H PRN PO PAIN LEVEL 1-3 OR FEVER Last administered on 07/05/16 19:31; Admin Dose 650 MG; Start 06/30/16 at 16:30 Acetaminophen (Tylenol Supp) 650 mg Q6H PRN [place] PAIN LEVEL 1-3 OR FEVER; Start 06/30/16 at 16:30 Acetaminophen/ Hydrocodone Bitart ([place] (5/325)) 1 tab Q6H PRN PO MODERATE PAIN LEVEL 4-6 Last administered on 07/18/16 00:29; Admin Dose 1 TAB; Start at 16:30 Acetaminophen/ Hydrocodone Bitart ([place] (5/325)) 2 tab Q6H PRN PO SEVERE PAIN LEVEL 7-10 Last administered on 07/10/16 13:15; Admin Dose 2 TAB; Start at 16:30 Morphine Sulfate (morphine) 2 mg Q4H PRN IV SEVERE PAIN LEVEL 7-10 Last administered on 07/18/16 20:20; Admin Dose 2 MG; Start 06/30/16 at 16:30 Docusate Sodium (Colace) 100 mg Q12H PRN PO CONSTIPATION; Start 06/30/16 at 16: 30 Magnesium Hydroxide (Milk Of Mag) 30 ml DAILY PRN PO CONSTIPATION; Start at 16:30 Bisacodyl (Dulcolax Supp) 10 mg DAILY PRN [place] CONSTIPATION; Start 06/30/16 at 16 :30 Pantoprazole 40 mg 40 mg DAILY@06 IV Last administered on 07/20/16 05:17; Admin Dose 40 MG; Start 07/01/16 at 06:00 Erythromycin Lactobionate 250 mg/Sodium Chloride 100 ml @ 100 mls/hr Q6 IVPB Last administered on 07/20/16 12:06; Admin Dose 100 MLS/HR; Start 07/09/16 at 00 :00 Propofol 100 ml @ 2.1 mls/hr Q12H IV Last administered on 07/20/16 05:17; Admin Dose 16.8 MLS/HR; Start 07/12/16 at 21:00 Norepinephrine 16 mg/Dextrose 500 ml @ 1.87 mls/hr TITRATE IV Last administered on 07/13/16 13:43; Admin Dose 18.75 MLS/HR; Start 07/13/16 at 08: 00 Fluconazole/ Sodium Chloride (Diflucan 100 Mg/ NS (Pmx)) 50 ml @ 50 mls/hr Q24H IVPB Last administered on 07/20/16 11:14; Admin Dose 50 MLS/HR; Start at 11:00 Albuterol (Ventolin Hfa) 2 puff Q4H PRN INH SHORTNESS OF BREATH Last administered on 07/20/16 08:56; Admin Dose 2 PUFF; Start 07/14/16 at 22:00 Ipratropium [place] 4 puff 4 puff Q4H PRN INH SHORTNESS OF BREATH Last administered on 07/20/16 08:55; Admin Dose 4 PUFF; Start 07/14/16 at 22:00 Meropenem (Merrem 500 Mg/ 100 ml (Pmx)) 100 ml @ 200 mls/hr Q24H IVPB Last administered on 07/19/16 21:48; Admin Dose 200 MLS/HR; Start 07/16/16 at 21:00 Heparin Sodium (Porcine) (Heparin (5000 Units/0.5 ml)) 5,000 unit BID SC Last administered on 07/20/16 09:25; Admin Dose 5,000 UNIT; Start 07/18/16 at 21:00 Metoclopramide HCl (Reglan) 5 mg Q8 IV Last administered on 07/20/16 15:27; Admin Dose 5 MG; Start 07/18/16 at 22:00 Diagnostic Test (Pha) 1 ea 1 ea Q4 XX Last administered on 07/20/16 13:00; Admin Dose 1 EA; Start 07/19/16 at 13:00 Total Parenteral Nutrition 1,000 ml @ 30 mls/hr Q24H IV Last administered on 17:53; Admin Dose 30 MLS/HR; Start 07/19/16 at 14:00 Albumin Human 100 ml @ 0 mls/hr DAILY IV ; Start 07/21/16 at 09:00; Stop at 08:59 Vancomycin HCl/ Sodium Chloride (Vancocin/NS) 150 ml @ 75 mls/hr Q96H IVPB Last administered on 07/20/16 16:30; Admin Dose 75 MLS/HR; Start 07/20/16 at 16 :00 TIANNA SALINAS MD July 20, 2016 17:57
--- NOTE | 2016-07-20 19:33 | CONS ---
Date/Time of Note Date/Time of Note DATE: 07/20/16 TIME: 19:31 Assessment/Plan Assessment/Plan Additional Assessment/Plan 1. Acute fluid overload with anasarca. 2. Acute kidney injury secondary to acute tubular necrosis from septic shock and also contributing vancomycin.did not improve, started on HD during this admission 3. Metabolic acidosis secondary to acute renal failure. 4. 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 5. Septic shock secondary to aspiration pneumonia and gastric outlet obstruction, status post duodenal stent placement. PLAN: started on HD last week for fluid overload during this admission, s/p HD today weaning plan as per pulmonary depending on H &O plan and Discussion with palliative care we will decide for [facility] HD plan As per current discussion with and son- they want to continue HD for a assisted we will wait for pt to be more stable before we decide for Permacath dialysis catheter will continue to follow up Consultation Date/Type/Reason Admit Date/Time Jun 30, 2016 at 15:42 Initial Consult Date 07/14/16 Type of Consultation: NEPHROLOGY Referring Provider: GAMALIEL HAIR MD 24 HR Interval Summary Free Text/Dictation plan for HD today, pt remains intubated Exam/Review of Systems Vital Signs Vitals Vital Signs Date Time Temp Pulse Resp B/P Pulse Ox O2 Delivery O2 Flow Rate FiO2 07/20/16 18:00 92 31 147/85 98 Nasal Cannula 2.0 07/20/16 17:54 32 07/20/16 16:00 98.1 Intake and Output 07/19/16 07/19/16 07/20/16 15:00 23:00 07:00 Intake Total 1044.4 ml 674.4 ml 427.6 ml Output Total 125 ml 130 ml 70 ml Balance 919.4 ml 544.4 ml 357.6 ml Exam Constitutional: non-verbal, intubated Respiratory: bibasilar crackles , no wheezing Cardiovascular: regular rate and rhythm Gastrointestinal: soft, No distended Musculoskeletal: nl extremities to inspection + deja HD catheter Results Result Diagram: 07/20/16 0500 07/20/16 0500 Results 24 hrs Laboratory Tests Test 07/19/16 21:48 07/20/16 01:25 07/20/16 04:51 07/20/16 05:00 Bedside Glucose 117 108 121 White Blood Count 14.4 H Red Blood Count 3.66 L Hemoglobin 11.2 L Hematocrit 33.6 L Mean Corpuscular Volume 91.8 Mean Corpuscular Hemoglobin 30.6 Mean Corpuscular Hemoglobin Concent 33.3 Red Cell Distribution Width 18.0 H Platelet Count 106 L Mean Platelet Volume 11.3 H Neutrophils % 88.7 H Lymphocytes % 3.1 L Monocytes % 2.6 Eosinophils % 0.3 Basophils % 0.1 Nucleated Red Blood Cells % 0.3 H Neutrophils # 12.8 H Lymphocytes # 0.5 L Monocytes # 0.4 Eosinophils # 0.0 Basophils # 0.0 Nucleated Red Blood Cells # 0.0 Sodium Level 141 Potassium Level 5.2 H Chloride Level 109 Carbon Dioxide Level 18 L Anion Gap 19 H Blood Urea Nitrogen 77 H Creatinine 3.10 H Glucose Level 116 Calcium Level 8.0 L Phosphorus Level 6.4 H Magnesium Level 2.1 Total Bilirubin 4.7 H Direct Bilirubin 4.30 H Indirect Bilirubin 0.4 Aspartate Amino Transf (AST/SGOT) 46 Alanine Aminotransferase (ALT/SGPT) 55 Alkaline Phosphatase 136 H Total Protein 5.1 L Albumin 2.6 L Globulin 2.50 Albumin/Globulin Ratio 1.04 Prealbumin 25.4 Triglycerides Level 986 H Random Vancomycin Level 14.6 Test 07/20/16 09:20 07/20/16 10:45 07/20/16 13:23 07/20/16 18:04 Bedside Glucose 136 123 125 Blood Gas Specimen Source Blood arterial Arterial Blood Date Drawn 07/20/2016 10:45:31 AM Arterial Blood pH (Temp corrected) 7.399 Arterial Blood pCO2 (Temp correct) 34.1 L Arterial Blood pO2 (Temp corrected) 88.0 Arterial Blood HCO3 20.6 L Arterial Blood Base Excess -3.5 L Arterial Blood Oxygen Saturation 96.3 Og Test ACCEPTAB Arterial Blood Gas Puncture Site Right Radial Arterial Blood Carboxyhemoglobin 0.3 Arterial Blood Methemoglobin 0.4 Blood Gas A-a O2 Differential 85.8 H Oxyhemoglobin Percent 95.6 Total Hemoglobin 12.4 Blood Gas Temperature 37.0 Blood Gas Actual Respiration Rate 32 Blood Gas Modality VENT - AC FiO2 30.0 Blood Gas Low PEEP Setting 5.0 Blood Gas Pressure Support 10 Blood Gas Notified Whom YVON Blood Gas Notified Time 07/20/2016 11:06:03 AM Medications Medications Current Medications Ondansetron HCl (Zofran Inj) 4 mg Q6H PRN IV NAUSEA AND/OR VOMITING Last administered on 07/19/16 23:54; Admin Dose 4 MG; Start 06/30/16 at 16:30 Acetaminophen (Tylenol Tab) 650 mg Q6H PRN PO PAIN LEVEL 1-3 OR FEVER Last administered on 07/05/16 19:31; Admin Dose 650 MG; Start 06/30/16 at 16:30 Acetaminophen (Tylenol Supp) 650 mg Q6H PRN [place] PAIN LEVEL 1-3 OR FEVER; Start 06/30/16 at 16:30 Acetaminophen/ Hydrocodone Bitart ([place] (5/325)) 1 tab Q6H PRN PO MODERATE PAIN LEVEL 4-6 Last administered on 07/18/16 00:29; Admin Dose 1 TAB; Start at 16:30 Acetaminophen/ Hydrocodone Bitart ([place] (5/325)) 2 tab Q6H PRN PO SEVERE PAIN LEVEL 7-10 Last administered on 07/10/16 13:15; Admin Dose 2 TAB; Start at 16:30 Morphine Sulfate (morphine) 2 mg Q4H PRN IV SEVERE PAIN LEVEL 7-10 Last administered on 07/18/16 20:20; Admin Dose 2 MG; Start 06/30/16 at 16:30 Docusate Sodium (Colace) 100 mg Q12H PRN PO CONSTIPATION; Start 06/30/16 at 16: 30 Magnesium Hydroxide (Milk Of Mag) 30 ml DAILY PRN PO CONSTIPATION; Start at 16:30 Bisacodyl (Dulcolax Supp) 10 mg DAILY PRN [place] CONSTIPATION; Start 06/30/16 at 16 :30 Pantoprazole 40 mg 40 mg DAILY@06 IV Last administered on 07/20/16 05:17; Admin Dose 40 MG; Start 07/01/16 at 06:00 Erythromycin Lactobionate 250 mg/Sodium Chloride 100 ml @ 100 mls/hr Q6 IVPB Last administered on 07/20/16 19:16; Admin Dose 100 MLS/HR; Start 07/09/16 at 00 :00 Propofol 100 ml @ 2.1 mls/hr Q12H IV Last administered on 07/20/16 05:17; Admin Dose 16.8 MLS/HR; Start 07/12/16 at 21:00 Norepinephrine 16 mg/Dextrose 500 ml @ 1.87 mls/hr TITRATE IV Last administered on 07/13/16 13:43; Admin Dose 18.75 MLS/HR; Start 07/13/16 at 08: 00 Fluconazole/ Sodium Chloride (Diflucan 100 Mg/ NS (Pmx)) 50 ml @ 50 mls/hr Q24H IVPB Last administered on 07/20/16 11:14; Admin Dose 50 MLS/HR; Start at 11:00 Albuterol (Ventolin Hfa) 2 puff Q4H PRN INH SHORTNESS OF BREATH Last administered on 07/20/16 08:56; Admin Dose 2 PUFF; Start 07/14/16 at 22:00 Ipratropium [place] 4 puff 4 puff Q4H PRN INH SHORTNESS OF BREATH Last administered on 07/20/16 08:55; Admin Dose 4 PUFF; Start 07/14/16 at 22:00 Meropenem (Merrem 500 Mg/ 100 ml (Pmx)) 100 ml @ 200 mls/hr Q24H IVPB Last administered on 07/19/16 21:48; Admin Dose 200 MLS/HR; Start 07/16/16 at 21:00 Heparin Sodium (Porcine) (Heparin (5000 Units/0.5 ml)) 5,000 unit BID SC Last administered on 07/20/16 09:25; Admin Dose 5,000 UNIT; Start 07/18/16 at 21:00 Metoclopramide HCl (Reglan) 5 mg Q8 IV Last administered on 07/20/16 15:27; Admin Dose 5 MG; Start 07/18/16 at 22:00 Diagnostic Test (Pha) 1 ea 1 ea Q4 XX Last administered on 07/20/16 17:00; Admin Dose 1 EA; Start 07/19/16 at 13:00 Total Parenteral Nutrition 1,000 ml @ 30 mls/hr Q24H IV Last administered on 17:53; Admin Dose 30 MLS/HR; Start 07/19/16 at 14:00 Albumin Human 100 ml @ 0 mls/hr DAILY IV ; Start 07/21/16 at 09:00; Stop at 08:59 Vancomycin HCl/ Sodium Chloride (Vancocin/NS) 150 ml @ 75 mls/hr Q96H IVPB Last administered on 07/20/16t 16:30; Admin Dose 75 MLS/HR; Start 07/20/16 at 16 :00 SHANAE LEWIS MD July 20, 2016 19:33
[2016-07-20] MEDS: MEROPENEM 500 MG/100 ML (PMX) 100 ML IVPB SCH (20:41)
[2016-07-20] MEDS: ONDANSETRON 4 MG INJ IV PRN (23:32)
[2016-07-20] MEDS: morphine 2 MG INJ IV PRN (23:33)
[2016-07-21] VITALS (40 sets, daily range): BP systolic 113–166; BP diastolic 79–108; PULSE 91–137; RESP 14–45
[2016-07-21] MEDS: ERYTHROMYCIN LACTOBIONATE 250 MG in SOD CHLORIDE 0.9% 100 ML IVPB SCH ×4 (00:36→17:40)
[2016-07-21] MEDS: ACCU-CHEK XX SCH ×6 (00:42→21:18)
[2016-07-21] MEDS: PANTOPRAZOLE 40 MG INJ IV SCH (05:14)
[2016-07-21] MEDS: METOCLOPRAMIDE 10 MG INJ IV SCH ×3 (05:15→21:13)
[2016-07-21] MEDS: morphine 2 MG INJ IV PRN ×4 (05:55→22:56)
[2016-07-21 06:12] LABS: ADD SCAN DIFF NO
[2016-07-21 06:20] LABS: ABNORMAL IP MESSAGE 1; HEMATOCRIT 36.9 % (42.0-52.0); HEMOGLOBIN 12.2 g/dl (14.0-18.0); MEAN CORPUSCULAR HEMOGLOBIN 29.5 pg (29.0-33.0); MEAN CORPUSCULAR HGB CONC 33.1 g/dl (32.0-37.0); MEAN CORPUSCULAR VOLUME 89.3 fl (82.0-101.0); MEAN PLATELET VOLUME 11.4 fl (7.4-10.4); PLATELET COUNT 69 10^3/UL (140-415); RED BLOOD COUNT 4.13 10^6/ul (4.70-6.10); RED CELL DISTRIBUTION WIDTH 18.4 % (11.5-14.5); WHITE BLOOD COUNT 20.2 10^3/ul (4.8-10.8)
[2016-07-21 06:53] LABS: POTASSIUM 4.1 mmol/L (3.5-5.1)
[2016-07-21 06:56] LABS: CALCIUM 8.3 mg/dl (8.4-10.2); MAGNESIUM 2.2 mg/dl (1.7-2.5); PHOSPHORUS 4.9 mg/dl (2.5-4.9)
[2016-07-21 07:07] LABS: CREATININE 2.92 mg/dl (0.61-1.24)
[2016-07-21 07:57] LABS: LYMPHOCYTES # 0.8 10^3/ul (0.8-2.9); MONOCYTE # 0.6 10^3/ul (0.3-0.9); NEUTROPHIL # 18.4 10^3/ul (1.6-7.5)
[2016-07-21] MEDS: PROPOFOL 100 ML IV SCH (08:10)
[2016-07-21 08:21] LABS: AADO2 Arterial 132.8 mmHg (7.0-24.0); Allen Test ACCEPTAB; Arterial Base Excess -3.1 mmol/L (-3.0-3); Arterial COHb 0.1 % (0.0-3.0); Arterial Fraction of Oxyhgb 92.1 % (93.0-99.0); Arterial HCO3 20.4 mmol/L (22.0-26.0); Arterial MetHb 0.2 % (0.0-1.5); Arterial Total Hemglobin 12.3 g/dl (12.0-18.0); MODE NASAL CANNULA
[2016-07-21 08:30] LABS: AADO2 Arterial 166.8 mmHg (7.0-24.0); Allen Test ACCEPTAB; Arterial Base Excess -3.4 mmol/L (-3.0-3); Arterial COHb 0.7 % (0.0-3.0); Arterial Fraction of Oxyhgb 93.5 % (93.0-99.0); Arterial HCO3 20.3 mmol/L (22.0-26.0); Arterial MetHb 0.3 % (0.0-1.5); Arterial Total Hemglobin 13.8 g/dl (12.0-18.0); MODE NASAL CANNULA
[2016-07-21] MEDS: ALBUMIN HUMAN 25% 100 ML IV SCH (09:18)
[2016-07-21] MEDS: HEPARIN 5,000 UNIT/0.5 ML VIAL SC SCH ×2 (09:19→21:17)
--- NOTE | 2016-07-21 10:40 | CONS ---
Date/Time of Note Date/Time of Note DATE: 07/21/16 TIME: 10:37 Assessment/Plan Assessment/Plan Additional Assessment/Plan Assessment recommendations; 1. Patient admitted for gastric outlet obstruction then developed respiratory failure due to aspiration pneumonia involving left lung now successfully extubated yesterday afternoon. 2. Biliary obstruction. Status post ERCP. 3. Metastatic uroepithelial cancer. 4. Renal failure, now requiring hemodialysis. Continue current treatment. A CODE STATUS needs to be discussed with the family. Obtain follow-up chest x-ray. Prognosis is poor. Consultation Date/Type/Reason Admit Date/Time Jun 30, 2016 at 15:42 Initial Consult Date 07/12/16 Type of Consultation: Pulmonary/critical care Referring Provider: GAMALIEL HAIR MD 24 HR Interval Summary Free Text/Dictation Patient condition remains stable. Was successfully extubated yesterday afternoon. She denies any shortness of breath. Denies any abdominal pain, nausea vomiting. General exam; elderly male, awake alert currently in no distress. Patient is appearing significantly jaundiced. Exam/Review of Systems Vital Signs Vitals Vital Signs Date Time Temp Pulse Resp B/P Pulse Ox O2 Delivery O2 Flow Rate FiO2 07/21/16 08:30 109 31 128/92 95 07/21/16 08:30 Nasal Cannula 6.0 07/21/16 04:00 98.3 07/20/16 17:54 32 Intake and Output 07/20/16 07/20/16 07/21/16 15:00 23:00 07:00 Intake Total 830 ml 680 ml 190 ml Output Total 2500 ml 65 ml 70 ml Balance -1670 ml 615 ml 120 ml Exam HEENT exam is; supple neck, no JVD. No lymphadenopathy. Midline trachea. No thyromegaly. There is bilateral icterus. Patient does have multiple carious teeth. Pupils are small bilaterally. Chest examination; diminished but clear vessel. S1-S2 audible, no murmurs. Regular rhythm. Abdomen examination; soft, protuberant. Bowel sounds are audible. Nontender. Extremity exam is; trace edema. [employer] examination; no focal deficit. Results Result Diagram: 07/21/16 0530 07/21/16 0530 Results 24 hrs Laboratory Tests Test 07/20/16 10:45 07/20/16 13:23 07/20/16 18:04 07/20/16 20:41 Blood Gas Specimen Source Blood arterial Arterial Blood Date Drawn 07/20/2016 10:45:31 AM Arterial Blood pH (Temp corrected) 7.399 Arterial Blood pCO2 (Temp correct) 34.1 L Arterial Blood pO2 (Temp corrected) 88.0 Arterial Blood HCO3 20.6 L Arterial Blood Base Excess -3.5 L Arterial Blood Oxygen Saturation 96.3 Og Test ACCEPTAB Arterial Blood Gas Puncture Site Right Radial Arterial Blood Carboxyhemoglobin 0.3 Arterial Blood Methemoglobin 0.4 Blood Gas A-a O2 Differential 85.8 H Oxyhemoglobin Percent 95.6 Total Hemoglobin 12.4 Blood Gas Temperature 37.0 Blood Gas Actual Respiration Rate 32 Blood Gas Modality VENT - AC FiO2 30.0 Blood Gas Low PEEP Setting 5.0 Blood Gas Pressure Support 10 Blood Gas Notified Whom YVON Blood Gas Notified Time 07/20/2016 11:06:03 AM Bedside Glucose 123 125 122 Test 07/21/16 00:39 07/21/16 01:37 07/21/16 05:25 07/21/16 05:30 Bedside Glucose 118 126 Blood Gas Specimen Source Blood arterial Arterial Blood Date Drawn 07/21/2016 1:30:39 AM Arterial Blood pH (Temp corrected) 7.427 Arterial Blood pCO2 (Temp correct) 31.6 L Arterial Blood pO2 (Temp corrected) 65.6 L Arterial Blood HCO3 20.4 L Arterial Blood Base Excess -3.1 L Arterial Blood Oxygen Saturation 92.4 L Og Test ACCEPTAB Arterial Blood Gas Puncture Site Right Radial Arterial Blood Carboxyhemoglobin 0.1 Arterial Blood Methemoglobin 0.2 Blood Gas A-a O2 Differential 132.8 H Oxyhemoglobin Percent 92.1 L Total Hemoglobin 12.3 Blood Gas Temperature 37.0 Blood Gas Modality NASAL CANNULA FiO2 33.0 Blood Gas Notified Whom VIN Blood Gas Notified Time 07/21/2016 1:43:33 AM White Blood Count 20.2 #H Red Blood Count 4.13 L Hemoglobin 12.2 L Hematocrit 36.9 L Mean Corpuscular Volume 89.3 Mean Corpuscular Hemoglobin 29.5 Mean Corpuscular Hemoglobin Concent 33.1 Red Cell Distribution Width 18.4 H Platelet Count 69 #L Mean Platelet Volume 11.4 H Neutrophils % 91.0 H Band Neutrophils % 2.0 Lymphocytes % 4.0 L Monocytes % 3.0 Eosinophils % Nucleated Red Blood Cells % 1.0 H Neutrophils # 18.4 H Lymphocytes # 0.8 Monocytes # 0.6 Eosinophils # Large Platelets OCCASIONAL Sodium Level 146 H Potassium Level 4.1 Chloride Level 109 Carbon Dioxide Level 19 L Anion Gap 22 H Blood Urea Nitrogen 64 H Creatinine 2.92 H Glucose Level 133 Calcium Level 8.3 L Phosphorus Level 4.9 Magnesium Level 2.2 Test 07/21/16 08:00 07/21/16 09:23 Blood Gas Specimen Source Blood arterial Arterial Blood Date Drawn 07/21/2016 8:03:16 AM Arterial Blood pH (Temp corrected) 7.412 Arterial Blood pCO2 (Temp correct) 32.6 L Arterial Blood pO2 (Temp corrected) 73.7 L Arterial Blood HCO3 20.3 L Arterial Blood Base Excess -3.4 L Arterial Blood Oxygen Saturation 94.4 L Og Test ACCEPTAB Arterial Blood Gas Puncture Site Right Radial Arterial Blood Carboxyhemoglobin 0.7 Arterial Blood Methemoglobin 0.3 Blood Gas A-a O2 Differential 166.8 H Oxyhemoglobin Percent 93.5 Total Hemoglobin 13.8 Blood Gas Temperature 37.0 Blood Gas Modality NASAL CANNULA FiO2 39.0 Blood Gas Notified Whom JLD Blood Gas Notified Time 07/21/2016 8:30:08 AM Bedside Glucose 116 Medications Medications Current Medications Ondansetron HCl (Zofran Inj) 4 mg Q6H PRN IV NAUSEA AND/OR VOMITING Last administered on 07/20/16 23:32; Admin Dose 4 MG; Start 06/30/16 at 16:30 Acetaminophen (Tylenol Tab) 650 mg Q6H PRN PO PAIN LEVEL 1-3 OR FEVER Last administered on 07/05/16 19:31; Admin Dose 650 MG; Start 06/30/16 at 16:30 Acetaminophen (Tylenol Supp) 650 mg Q6H PRN [place] PAIN LEVEL 1-3 OR FEVER; Start 06/30/16 at 16:30 Acetaminophen/ Hydrocodone Bitart ([place] (5/325)) 1 tab Q6H PRN PO MODERATE PAIN LEVEL 4-6 Last administered on 07/18/16 00:29; Admin Dose 1 TAB; Start at 16:30 Acetaminophen/ Hydrocodone Bitart ([place] (5/325)) 2 tab Q6H PRN PO SEVERE PAIN LEVEL 7-10 Last administered on 07/10/16 13:15; Admin Dose 2 TAB; Start at 16:30 Morphine Sulfate (morphine) 2 mg Q4H PRN IV SEVERE PAIN LEVEL 7-10 Last administered on 07/21/16 05:55; Admin Dose 2 MG; Start 06/30/16 at 16:30 Docusate Sodium (Colace) 100 mg Q12H PRN PO CONSTIPATION; Start 06/30/16 at 16: 30 Magnesium Hydroxide (Milk Of Mag) 30 ml DAILY PRN PO CONSTIPATION; Start at 16:30 Bisacodyl (Dulcolax Supp) 10 mg DAILY PRN [place] CONSTIPATION; Start 06/30/16 at 16 :30 Pantoprazole 40 mg 40 mg DAILY@06 IV Last administered on 07/21/16 05:14; Admin Dose 40 MG; Start 07/01/16 at 06:00 Erythromycin Lactobionate 250 mg/Sodium Chloride 100 ml @ 100 mls/hr Q6 IVPB Last administered on 07/21/16 05:16; Admin Dose 100 MLS/HR; Start 07/09/16 at 00 :00 Propofol 100 ml @ 2.1 mls/hr Q12H IV Last administered on 07/20/16 05:17; Admin Dose 16.8 MLS/HR; Start 07/12/16 at 21:00 Norepinephrine 16 mg/Dextrose 500 ml @ 1.87 mls/hr TITRATE IV Last administered on 07/13/16 13:43; Admin Dose 18.75 MLS/HR; Start 07/13/16 at 08: 00 Fluconazole/ Sodium Chloride (Diflucan 100 Mg/ NS (Pmx)) 50 ml @ 50 mls/hr Q24H IVPB Last administered on 07/20/16 11:14; Admin Dose 50 MLS/HR; Start at 11:00 Albuterol (Ventolin Hfa) 2 puff Q4H PRN INH SHORTNESS OF BREATH Last administered on 07/20/16 08:56; Admin Dose 2 PUFF; Start 07/14/16 at 22:00 Ipratropium [place] 4 puff 4 puff Q4H PRN INH SHORTNESS OF BREATH Last administered on 07/20/16 08:55; Admin Dose 4 PUFF; Start 07/14/16 at 22:00 Meropenem (Merrem 500 Mg/ 100 ml (Pmx)) 100 ml @ 200 mls/hr Q24H IVPB Last administered on 07/20/16 20:41; Admin Dose 200 MLS/HR; Start 07/16/16 at 21:00 Heparin Sodium (Porcine) (Heparin (5000 Units/0.5 ml)) 5,000 unit BID SC Last administered on 07/21/16 09:19; Admin Dose 5,000 UNIT; Start 07/18/16 at 21:00 Metoclopramide HCl (Reglan) 5 mg Q8 IV Last administered on 07/21/16 05:15; Admin Dose 5 MG; Start 07/18/16 at 22:00 Diagnostic Test (Pha) 1 ea 1 ea Q4 XX Last administered on 07/21/16 09:19; Admin Dose 1 EA; Start 07/19/16 at 13:00 Total Parenteral Nutrition 1,000 ml @ 30 mls/hr Q24H IV Last administered on 17:53; Admin Dose 30 MLS/HR; Start 07/19/16 at 14:00 Albumin Human 100 ml @ 0 mls/hr DAILY IV Last administered on 07/21/16 09:18; Admin Dose 100 MLS/HR; Start 07/21/16 at 09:00; Stop 07/24/16 at 08:59 Vancomycin HCl/ Sodium Chloride (Vancocin/NS) 150 ml @ 75 mls/hr Q96H IVPB Last administered on 07/20/16 16:30; Admin Dose 75 MLS/HR; Start 07/20/16 at 16 :[address] July 21, 2016 10:40
--- NOTE | 2016-07-21 11:16 | PN ---
Date/Time of Note Date/Time of Note DATE: 07/21/16 TIME: 11:04 Assessment/Plan VTE Prophylaxis VTE Prophylaxis Intervention: SCD's VTE Contraindication Reason: thrombocytopenia Lines/Catheters IV Catheter Type (from Nrs): Kale Urinary Cath still in place: Yes Reason Cath still needed: other (indicate) Assessment/Plan Assessment/Plan 60 year old male with metastatic uroepithelial cancer who had presented during the last admission with gastric outlet obstruction status post duodenal stent . Has since been diagnosed with metastatic urothelial cancer. Patient now readmitted with sepsis with abdominal pain. 1. Septic Shock 2/2 Aspiration PNA : Now off pressors, leukocytosis worsening with bandemia. 2. Transaminitis with Hyperbilirubinemia 2nd biliary obstruction from metastatic cancer 3. Metastatic Urothelial cancer with possible carcinomatosis 4. Tumor Obstructed duodenum with gastric outlet obstruction s/p duodenal stent 06/02/16 and with new ERCP showing tumor eroding stent and completely obstructing lumen 5. Steatosis 6. Acute Respiratory Failure secondary to aspiration pneumonia 7. Acute kidney injury secondary to acute tubular necrosis from septic shock and also contributing vancomycin requiring HD 8. S/p ecoli bacteremia and pseudomonas UTI 9. Chelsy UTI on fluconazole 10. TPN therapy PLAN: * Patient remains high reintubation risk. Will need continued aggressive diuresis/dialysis. * Try to discuss CODE STATUS with the patient's , but she is unwilling to have this discussion. * Patient will have to remain in the intensive care unit for close monitoring for now * Will have PT eval * Continue abx for bilateral pneumonia * Not a candidate for chemo at this time * Continue HD for CHARITY and pulm fluid overload /continue albumin on a daily basis for 3 more days /will add Lasix if okay with nephrology * Palliative care consulting on the case / special investigator prognosis poor * Continue TPN * goal is for stabilization after which GI will try to replace stent and patient may also get chemo. CRITICAL CARE TIME: >35 mins Subjective 24 Hr Interval Summary Free Text/Dictation Patient seen, successfully extubated yesterday. Mildly tachypneic. Exam/Review of Systems Vital Signs Vitals Vital Signs Date Time Temp Pulse Resp B/P Pulse Ox O2 Delivery O2 Flow Rate FiO2 07/21/16 08:30 109 31 128/92 95 07/21/16 08:30 Nasal Cannula 6.0 07/21/16 04:00 98.3 07/20/16 17:54 32 Intake and Output 07/20/16 07/20/16 07/21/16 15:00 23:00 07:00 Intake Total 830 ml 680 ml 190 ml Output Total 2500 ml 65 ml 70 ml Balance -1670 ml 615 ml 120 ml Exam Constitutional: alert despite propofol / lethargic / follows commands / responds to greetings ENMT: icteric ++ Respiratory: clear to auscultation / diminished / tachypneic Cardiovascular: regular rate and rhythm Gastrointestinal: soft, biliary drainage still in place with minimal greenish drain No distended Musculoskeletal: Daniel edema pitting / diffuse anasarca Genitourinary - Male: No nl scrotum (severe scrotal edema) Results Result Diagram: 07/21/1630 07/21/16 0530 Results 24 hrs Laboratory Tests Test 07/20/16 13:23 07/20/16 18:04 07/20/16 20:41 07/21/16 00:39 Bedside Glucose 123 125 122 118 Test 07/21/16 01:37 07/21/16 05:25 07/21/16 05:30 07/21/16 08:00 Blood Gas Specimen Source Blood arterial Blood arterial Arterial Blood Date Drawn 07/21/2016 1:30:39 AM 07/21/2016 8:03:16 AM Arterial Blood pH (Temp corrected) 7.427 7.412 Arterial Blood pCO2 (Temp correct) 31.6 L 32.6 L Arterial Blood pO2 (Temp corrected) 65.6 L 73.7 L Arterial Blood HCO3 20.4 L 20.3 L Arterial Blood Base Excess -3.1 L -3.4 L Arterial Blood Oxygen Saturation 92.4 L 94.4 L Og Test ACCEPTAB ACCEPTAB Arterial Blood Gas Puncture Site Right Radial Right Radial Arterial Blood Carboxyhemoglobin 0.1 0.7 Arterial Blood Methemoglobin 0.2 0.3 Blood Gas A-a O2 Differential 132.8 H 166.8 H Oxyhemoglobin Percent 92.1 L 93.5 Total Hemoglobin 12.3 13.8 Blood Gas Temperature 37.0 37.0 Blood Gas Modality NASAL CANNULA NASAL CANNULA FiO2 33.0 39.0 Blood Gas Notified Whom VIN SANZ Blood Gas Notified Time 07/21/2016 1:43:33 AM 07/21/2016 8:30:08 AM Bedside Glucose 126 White Blood Count 20.2 #H Red Blood Count 4.13 L Hemoglobin 12.2 L Hematocrit 36.9 L Mean Corpuscular Volume 89.3 Mean Corpuscular Hemoglobin 29.5 Mean Corpuscular Hemoglobin Concent 33.1 Red Cell Distribution Width 18.4 H Platelet Count 69 #L Mean Platelet Volume 11.4 H Neutrophils % 91.0 H Band Neutrophils % 2.0 Lymphocytes % 4.0 L Monocytes % 3.0 Eosinophils % Nucleated Red Blood Cells % 1.0 H Neutrophils # 18.4 H Lymphocytes # 0.8 Monocytes # 0.6 Eosinophils # Large Platelets OCCASIONAL Sodium Level 146 H Potassium Level 4.1 Chloride Level 109 Carbon Dioxide Level 19 L Anion Gap 22 H Blood Urea Nitrogen 64 H Creatinine 2.92 H Glucose Level 133 Calcium Level 8.3 L Phosphorus Level 4.9 Magnesium Level 2.2 Test 07/21/16 09:23 Bedside Glucose 116 Medications Medications Current Medications Ondansetron HCl (Zofran Inj) 4 mg Q6H PRN IV NAUSEA AND/OR VOMITING Last administered on 07/20/16 23:32; Admin Dose 4 MG; Start 06/30/16 at 16:30 Acetaminophen (Tylenol Tab) 650 mg Q6H PRN PO PAIN LEVEL 1-3 OR FEVER Last administered on 07/05/16 19:31; Admin Dose 650 MG; Start 06/30/16 at 16:30 Acetaminophen (Tylenol Supp) 650 mg Q6H PRN [place] PAIN LEVEL 1-3 OR FEVER; Start 06/30/16 at 16:30 Acetaminophen/ Hydrocodone Bitart ([place] (5/325)) 1 tab Q6H PRN PO MODERATE PAIN LEVEL 4-6 Last administered on 07/18/16 00:29; Admin Dose 1 TAB; Start at 16:30 Acetaminophen/ Hydrocodone Bitart ([place] (5/325)) 2 tab Q6H PRN PO SEVERE PAIN LEVEL 7-10 Last administered on 07/10/16 13:15; Admin Dose 2 TAB; Start at 16:30 Morphine Sulfate (morphine) 2 mg Q4H PRN IV SEVERE PAIN LEVEL 7-10 Last administered on 07/21/16 10:48; Admin Dose 2 MG; Start 06/30/16 at 16:30 Docusate Sodium (Colace) 100 mg Q12H PRN PO CONSTIPATION; Start 06/30/16 at 16: 30 Magnesium Hydroxide (Milk Of Mag) 30 ml DAILY PRN PO CONSTIPATION; Start at 16:30 Bisacodyl (Dulcolax Supp) 10 mg DAILY PRN [place] CONSTIPATION; Start 06/30/16 at 16 :30 Pantoprazole 40 mg 40 mg DAILY@06 IV Last administered on 07/21/16 05:14; Admin Dose 40 MG; Start 07/01/16 at 06:00 Erythromycin Lactobionate 250 mg/Sodium Chloride 100 ml @ 100 mls/hr Q6 IVPB Last administered on 07/21/16 05:16; Admin Dose 100 MLS/HR; Start 07/09/16 at 00 :00 Propofol 100 ml @ 2.1 mls/hr Q12H IV Last administered on 07/20/16 05:17; Admin Dose 16.8 MLS/HR; Start 07/12/16 at 21:00 Norepinephrine 16 mg/Dextrose 500 ml @ 1.87 mls/hr TITRATE IV Last administered on 07/13/16 13:43; Admin Dose 18.75 MLS/HR; Start 07/13/16 at 08: 00 Fluconazole/ Sodium Chloride (Diflucan 100 Mg/ NS (Pmx)) 50 ml @ 50 mls/hr Q24H IVPB Last administered on 07/20/16 11:14; Admin Dose 50 MLS/HR; Start at 11:00 Albuterol (Ventolin Hfa) 2 puff Q4H PRN INH SHORTNESS OF BREATH Last administered on 07/20/16 08:56; Admin Dose 2 PUFF; Start 07/14/16 at 22:00 Ipratropium [place] 4 puff 4 puff Q4H PRN INH SHORTNESS OF BREATH Last administered on 07/20/16 08:55; Admin Dose 4 PUFF; Start 07/14/16 at 22:00 Meropenem (Merrem 500 Mg/ 100 ml (Pmx)) 100 ml @ 200 mls/hr Q24H IVPB Last administered on 07/20/16 20:41; Admin Dose 200 MLS/HR; Start 07/16/16 at 21:00 Heparin Sodium (Porcine) (Heparin (5000 Units/0.5 ml)) 5,000 unit BID SC Last administered on 07/21/16 09:19; Admin Dose 5,000 UNIT; Start 07/18/16 at 21:00 Metoclopramide HCl (Reglan) 5 mg Q8 IV Last administered on 07/21/16 05:15; Admin Dose 5 MG; Start 07/18/16 at 22:00 Diagnostic Test (Pha) 1 ea 1 ea Q4 XX Last administered on 07/21/16 09:19; Admin Dose 1 EA; Start 07/19/16 at 13:00 Total Parenteral Nutrition 1,000 ml @ 30 mls/hr Q24H IV Last administered on 17:53; Admin Dose 30 MLS/HR; Start 07/19/16 at 14:00 Albumin Human 100 ml @ 0 mls/hr DAILY IV Last administered on 07/21/16 09:18; Admin Dose 100 MLS/HR; Start 07/21/16 at 09:00; Stop 07/24/16 at 08:59 Vancomycin HCl/ Sodium Chloride (Vancocin/NS) 150 ml @ 75 mls/hr Q96H IVPB Last administered on 07/20/16 16:30; Admin Dose 75 MLS/HR; Start 07/20/16 at 16 :00 ELLIOTT ALEMAN July 21, 2016 11:15
[2016-07-21] MEDS: FLUCONAZOLE 100 MG/NS (PMX) 50 ML IVPB SCH (11:43)
[2016-07-21] MEDS: FUROSEMIDE 40 MG INJ IV SCH ×2 (11:46→17:40)
--- NOTE | 2016-07-21 13:24 | PN ---
DATE: 07/21/2016 SUBJECTIVE: The patient was extubated yesterday, comfortable on 6 liters nasal cannula, afebrile. VITAL SIGNS: Temperature 98.2, pulse 106, respirations 21, blood pressure 134/90, saturation 96% on 6 liters. LABORATORY DATA: WBC today 20.2, H and H 12.2 and 36.9, platelets 69, neutrophils 91, bands 2, lymp hs 4, monos 3. BUN 64, creatinine 2.92. INDWELLINGS: Left IJ Kale, Langley catheter, right chest Port-A-Cath. ANTIMICROBIALS: 1. Vancomycin. 2. Meropenem. 3. Fluconazole. 4. Erythromycin. PHYSICAL EXAMINATION: GENERAL: This is a fragile, chronically ill-appearing, elderly man who is awake, comfortable on 6 l iters nasal cannula, in no distress. HEENT: Head atraumatic, normocephalic. Sclerae anicteric. Buccal mucosa dry. NECK: Supple. CHEST: Rise symmetrical. Breath sounds diminished to bases. HEART: S1, S2. ABDOMEN: Soft. Bowel tones hypoactive. EXTREMITIES: Without cyanosis. ASSESSMENT: 1. Sepsis status post shock. 2. Aspiration pneumonia, status post respiratory failure. 3. Status post Escherichia coli bacteremia on admission. 4. Urinary tract infection with urine culture grew Pseudomonas aeruginosa and Chelsy albicans. 5. Metastatic urothelial cancer. 6. Biliary obstruction by the tumor growing over the stent. 7. Acute renal failure, on hemodialysis. 8. Diabetic gastroparesis. PLAN: The patient remains stable post-extubation with increasing leukocytosis, etiology unclear. H e is not on any steroids. We are going to repeat blood, urine cultures. Continue him on current an timicrobials. Follow chest x-ray in a.m. Follow up pulmonary, nephrology, cardiology recommendatio ns. The patient is being seen by Dr. De, who is planning to put another duodenal stent when the patient is medically stable. Dictated By: MARIELA ROBIN CUPOLA PATCHER for PENNY BARRIGA/NTS Conf#: [id number] DID#: [id number]
--- NOTE | 2016-07-21 13:43 | RADRPT ---
PROCEDURE: XR Chest. CLINICAL INDICATION: Pneumonia TECHNIQUE: Single frontal chest x-ray. COMPARISON: 07/20/2016 FINDINGS: Endotracheal and nasogastric tubes have been removed. Right-sided Port-A-Cath and left-sided centra l venous catheter remain in place. Bilateral perihilar pulmonary opacities are again noted, grossly unchanged. Atelectasis and/or mild effusion at the left lung base is unchanged. No pneumothorax i s identified. Cardiomediastinal silhouette is stable in appearance. The osseous structures are rem arkable for degenerative spondylosis of the spine. IMPRESSION: 1. Bilateral perihilar pulmonary opacities are again noted, grossly unchanged and considerations in clude pulmonary edema and pneumonia. 2. Atelectasis and/or mild effusion at the left lung base is grossly stable. 3. Endotracheal and nasogastric tubes have been removed. RPTAT: EE .Roosevelt Solis MD, MD Date Time Electronically viewed and signed by .Roosevelt Solis MD, on 07/21/2016 13:43 .R/
--- NOTE | 2016-07-21 14:22 | CONS ---
Date/Time of Note Date/Time of Note DATE: 07/21/16 TIME: 14:19 Assessment/Plan Assessment/Plan Chief Complaint/Hosp Course 60 year old male with metastatic urothelial cancer who had presented during the last admission with gastric outlet obstruction status post duodenal stent . Has since been diagnosed with metastatic urothelial cancer. Patient now readmitted with sepsis with abdominal pain. He is currently in critical condition, intubated in the ICU # metastatic urothelial cancer - CT A/P demonstrates infiltrative neoplasm involving the cecum, ascending colon and hepatic flexure with extension of tumor to the serosa involving the lateral wall of the duodenum. This has advanced as compared to 05/27/2016. - I had planned to start gemcitabine 1000 mg/m2 D1, 8 and carboplatin AUC 4.5 D1 however needed to wait till bacteremia adequately treated and now patient with left lung aspiration pneumonia. Given rapidly growing tumor, would want to start chemo ISSA when patient more stable. Patient extubated 07/20/16, when patient transferred out of ICU and more ambulatory, will start gemcitabine/ carboplatin with dose adjustments depending on renal and hepatic function. Would use 50% of dose of carboplatin in ESRD on HD; would advise HD 6-12 hours after gemcitabine given with caution due to hyperbilirubinemia with initial dose 800 mg/m2. - discussed with Dr. De, duodenal stent obstructed by tumor, status post new internal biliary catheter 07/11/16. Plan for new biliary stent when more stable. - Dr. Nolan to arrange for POLST form to be filled out - Hg has improved after blood transfusion and is now > 10 # Leukocytosis and thrombocytopenia, etiology unclear - WBC now 20.2 up from 14.4, Plt down from 106 to 69. DIC panel not consistent with DIC. Concerning for sepsis. - Appreciate ID recs. # Elevated D-dimer > 10,000. Check upper and lower extremity dopplers r/o DVT. # E. coli bacteremia - with sepsis secondary to biliary obstruction s/p attempted unsuccessful ERCP 07/03, s/p external percutaneous biliary drainage 07/05 - Last blood cultures were clear from 07/05/16 - will hold on removing the port for now. If ID feels it is necessary to remove and if bacteremia does not clear, will remove at that time # Biliary obstruction - s/p percutaneous biliary drain and status post new biliary catheter 07/11/16 - status post EGD that demonstrated gastric outlet obstruction with tumor growing over stent and almost complete obstructing lumen. - Now Bilirubin up to 7.8, plan for another biliary stent when more stable per GI. - US Abdomen 07/19/16 demonstrated mild fatty infiltration of liver, new moderate ascites, mildly dilated CBD, 8 mm, decreased - On TPN, no feeds per GI # Diabetic Gastroparesis - cont reglan; erythromycin added as prokinetic agent per GI # CHARITY - Acute kidney injury secondary to acute tubular necrosis from septic shock and also contributing vancomycin - cont HD per renal Problems: Consultation Date/Type/Reason Admit Date/Time Jun 30, 2016 at 15:42 Initial Consult Date 06/30/16 Type of Consultation: Oncology Referring Provider: GAMALIEL HAIR MD 24 HR Interval Summary Free Text/Dictation Patient extubated yesterday, however more tachypneic and tachycardic today with HR up to 140s, improved on BiPAP. Exam/Review of Systems Vital Signs Vitals Vital Signs Date Time Temp Pulse Resp B/P Pulse Ox O2 Delivery O2 Flow Rate FiO2 07/21/16 12:30 106 45 131/86 96 07/21/16 12:00 98.2 Nasal Cannula 6.0 07/20/16 17:54 32 Intake and Output 07/20/16 07/20/16 07/21/16 15:00 23:00 07:00 Intake Total 830 ml 680 ml 190 ml Output Total 2500 ml 65 ml 70 ml Balance -1670 ml 615 ml 120 ml Exam ENMT: extubated, on BiPAP Neck: non-tender, supple Respiratory: clear to auscultation Gastrointestinal: soft Musculoskeletal: nl extremities to inspection, nl gait and stance Results Result Diagram: 07/21/16 0530 07/21/16 0530 Results 24 hrs Laboratory Tests Test 07/20/16 18:04 07/20/16 20:41 07/21/16 00:39 07/21/16 01:37 Bedside Glucose 125 122 118 Blood Gas Specimen Source Blood arterial Arterial Blood Date Drawn 07/21/2016 1:30:39 AM Arterial Blood pH (Temp corrected) 7.427 Arterial Blood pCO2 (Temp correct) 31.6 L Arterial Blood pO2 (Temp corrected) 65.6 L Arterial Blood HCO3 20.4 L Arterial Blood Base Excess -3.1 L Arterial Blood Oxygen Saturation 92.4 L Og Test ACCEPTAB Arterial Blood Gas Puncture Site Right Radial Arterial Blood Carboxyhemoglobin 0.1 Arterial Blood Methemoglobin 0.2 Blood Gas A-a O2 Differential 132.8 H Oxyhemoglobin Percent 92.1 L Total Hemoglobin 12.3 Blood Gas Temperature 37.0 Blood Gas Modality NASAL CANNULA FiO2 33.0 Blood Gas Notified Whom VIN Blood Gas Notified Time 07/21/2016 1:43:33 AM Test 07/21/16 05:25 07/21/16 05:30 07/21/16 08:00 07/21/16 09:23 Bedside Glucose 126 116 White Blood Count 20.2 #H Red Blood Count 4.13 L Hemoglobin 12.2 L Hematocrit 36.9 L Mean Corpuscular Volume 89.3 Mean Corpuscular Hemoglobin 29.5 Mean Corpuscular Hemoglobin Concent 33.1 Red Cell Distribution Width 18.4 H Platelet Count 69 #L Mean Platelet Volume 11.4 H Neutrophils % 91.0 H Band Neutrophils % 2.0 Lymphocytes % 4.0 L Monocytes % 3.0 Eosinophils % Nucleated Red Blood Cells % 1.0 H Neutrophils # 18.4 H Lymphocytes # 0.8 Monocytes # 0.6 Eosinophils # Large Platelets OCCASIONAL Sodium Level 146 H Potassium Level 4.1 Chloride Level 109 Carbon Dioxide Level 19 L Anion Gap 22 H Blood Urea Nitrogen 64 H Creatinine 2.92 H Glucose Level 133 Calcium Level 8.3 L Phosphorus Level 4.9 Magnesium Level 2.2 Blood Gas Specimen Source Blood arterial Arterial Blood Date Drawn 07/21/2016 8:03:16 AM Arterial Blood pH (Temp corrected) 7.412 Arterial Blood pCO2 (Temp correct) 32.6 L Arterial Blood pO2 (Temp corrected) 73.7 L Arterial Blood HCO3 20.3 L Arterial Blood Base Excess -3.4 L Arterial Blood Oxygen Saturation 94.4 L Og Test ACCEPTAB Arterial Blood Gas Puncture Site Right Radial Arterial Blood Carboxyhemoglobin 0.7 Arterial Blood Methemoglobin 0.3 Blood Gas A-a O2 Differential 166.8 H Oxyhemoglobin Percent 93.5 Total Hemoglobin 13.8 Blood Gas Temperature 37.0 Blood Gas Modality NASAL CANNULA FiO2 39.0 Blood Gas Notified Whom JLD Blood Gas Notified Time 07/21/2016 8:30:08 AM Test 07/21/16 14:10 Bedside Glucose 131 Medications Medications Current Medications Ondansetron HCl (Zofran Inj) 4 mg Q6H PRN IV NAUSEA AND/OR VOMITING Last administered on 07/20/16 23:32; Admin Dose 4 MG; Start 06/30/16 at 16:30 Acetaminophen (Tylenol Tab) 650 mg Q6H PRN PO PAIN LEVEL 1-3 OR FEVER Last administered on 07/05/16 19:31; Admin Dose 650 MG; Start 06/30/16 at 16:30 Acetaminophen (Tylenol Supp) 650 mg Q6H PRN [place] PAIN LEVEL 1-3 OR FEVER; Start 06/30/16 at 16:30 Acetaminophen/ Hydrocodone Bitart ([place] (5/325)) 1 tab Q6H PRN PO MODERATE PAIN LEVEL 4-6 Last administered on 07/18/16 00:29; Admin Dose 1 TAB; Start at 16:30 Acetaminophen/ Hydrocodone Bitart ([place] (5/325)) 2 tab Q6H PRN PO SEVERE PAIN LEVEL 7-10 Last administered on 07/10/16 13:15; Admin Dose 2 TAB; Start at 16:30 Morphine Sulfate (morphine) 2 mg Q4H PRN IV SEVERE PAIN LEVEL 7-10 Last administered on 07/21/16 10:48; Admin Dose 2 MG; Start 06/30/16 at 16:30 Docusate Sodium (Colace) 100 mg Q12H PRN PO CONSTIPATION; Start 06/30/16 at 16: 30 Magnesium Hydroxide (Milk Of Mag) 30 ml DAILY PRN PO CONSTIPATION; Start at 16:30 Bisacodyl (Dulcolax Supp) 10 mg DAILY PRN [place] CONSTIPATION; Start 06/30/16 at 16 :30 Pantoprazole 40 mg 40 mg DAILY@06 IV Last administered on 07/21/16 05:14; Admin Dose 40 MG; Start 07/01/16 at 06:00 Erythromycin Lactobionate 250 mg/Sodium Chloride 100 ml @ 100 mls/hr Q6 IVPB Last administered on 07/21/16 12:55; Admin Dose 100 MLS/HR; Start 07/09/16 at 00 :00 Propofol 100 ml @ 2.1 mls/hr Q12H IV Last administered on 07/20/16 05:17; Admin Dose 16.8 MLS/HR; Start 07/12/16 at 21:00 Norepinephrine 16 mg/Dextrose 500 ml @ 1.87 mls/hr TITRATE IV Last administered on 07/13/16 13:43; Admin Dose 18.75 MLS/HR; Start 07/13/16 at 08: 00 Fluconazole/ Sodium Chloride (Diflucan 100 Mg/ NS (Pmx)) 50 ml @ 50 mls/hr Q24H IVPB Last administered on 07/21/16 11:43; Admin Dose 50 MLS/HR; Start at 11:00 Albuterol (Ventolin Hfa) 2 puff Q4H PRN INH SHORTNESS OF BREATH Last administered on 07/20/16 08:56; Admin Dose 2 PUFF; Start 07/14/16 at 22:00 Ipratropium [place] 4 puff 4 puff Q4H PRN INH SHORTNESS OF BREATH Last administered on 07/20/16 08:55; Admin Dose 4 PUFF; Start 07/14/16 at 22:00 Meropenem (Merrem 500 Mg/ 100 ml (Pmx)) 100 ml @ 200 mls/hr Q24H IVPB Last administered on 07/20/16 20:41; Admin Dose 200 MLS/HR; Start 07/16/16 at 21:00 Heparin Sodium (Porcine) (Heparin (5000 Units/0.5 ml)) 5,000 unit BID SC Last administered on 07/21/16 09:19; Admin Dose 5,000 UNIT; Start 07/18/16 at 21:00 Metoclopramide HCl (Reglan) 5 mg Q8 IV Last administered on 07/21/16 14:04; Admin Dose 5 MG; Start 07/18/16 at 22:00 Diagnostic Test (Pha) 1 ea 1 ea Q4 XX Last administered on 07/21/16 13:00; Admin Dose 1 EA; Start 07/19/16 at 13:00 Total Parenteral Nutrition 1,000 ml @ 30 mls/hr Q24H IV Last administered on 17:53; Admin Dose 30 MLS/HR; Start 07/19/16 at 14:00 Albumin Human 100 ml @ 0 mls/hr DAILY IV Last administered on 07/21/16 09:18; Admin Dose 100 MLS/HR; Start 07/21/16 at 09:00; Stop 07/24/16 at 08:59 Vancomycin HCl/ Sodium Chloride (Vancocin/NS) 150 ml @ 75 mls/hr Q96H IVPB Last administered on 07/20/16t 16:30; Admin Dose 75 MLS/HR; Start 07/20/16 at 16 :00 DARBY KNOWLES MD July 21, 2016 14:21
[2016-07-21 15:29] LABS: BILIRUBIN,DIRECT 7.3 mg/dl (0.00-0.20); BILIRUBIN,INDIRECT 0.5 mg/dl (0-1.1); BILIRUBIN,TOTAL 7.8 mg/dl (0.2-1.3); TOTAL PROTEIN 5.8 g/dl (6.1-8.1)
[2016-07-21 15:37] LABS: AADO2 Arterial 378.3 mmHg (7.0-24.0); Allen Test ACCEPTAB; Arterial Base Excess -7.5 mmol/L (-3.0-3); Arterial COHb 0.2 % (0.0-3.0); Arterial Fraction of Oxyhgb 90.8 % (93.0-99.0); Arterial HCO3 18.7 mmol/L (22.0-26.0); Arterial MetHb 0.3 % (0.0-1.5); Arterial Total Hemglobin 12.8 g/dl (12.0-18.0); MODE MASK - SIMPLE
[2016-07-21 15:39] LABS: PLATELET COUNT 76 10^3/UL (140-415)
[2016-07-21 15:45] LABS: INR 1.11; PROTIME 14.3 Sec (12.2-14.2); PT RATIO 1.1
[2016-07-21 15:49] LABS: THROMBIN TIME 15.5 SEC (13.8-19.1)
[2016-07-21 16:16] LABS: D-DIMER > 10000.00 ng/ml (<460)
[2016-07-21 16:43] LABS: FIBRIN SPLIT PRODUCT <10 ug/ml (<10)
[2016-07-21] MEDS: TPN 1,000 ML IV SCH (16:55)
--- NOTE | 2016-07-21 17:10 | CONS ---
Date/Time of Note Date/Time of Note DATE: 07/21/16 TIME: 17:09 Assessment/Plan Assessment/Plan Additional Assessment/Plan 1. Acute fluid overload with anasarca. 2. Acute kidney injury secondary to acute tubular necrosis from septic shock and also contributing vancomycin.did not improve, started on HD during this admission 3. Metabolic acidosis secondary to acute renal failure. 4. 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 5. Septic shock secondary to aspiration pneumonia and gastric outlet obstruction, status post duodenal stent placement. PLAN: started on HD last week for fluid overload during this admission, HD ordered for tomorrow weaning plan as per pulmonary depending on H &O plan and Discussion with palliative care we will decide for [employer] operator HD plan As per current discussion with and son- they want to continue HD for a shelter we will wait for pt to be more stable before we decide for Permacath dialysis catheter will continue to follow up Consultation Date/Type/Reason Admit Date/Time Jun 30, 2016 at 15:42 Initial Consult Date 07/14/16 Type of Consultation: NEPHROLOGY Referring Provider: GAMALIEL HAIR MD Exam/Review of Systems Vital Signs Vitals Vital Signs Date Time Temp Pulse Resp B/P Pulse Ox O2 Delivery O2 Flow Rate FiO2 07/21/16 15:00 Simple Mask 10.0 07/21/16 14:30 120 27 148/94 96 07/21/16 12:00 98.2 07/20/16 17:54 32 Intake and Output 07/20/16 07/20/16 07/21/16 15:00 23:00 07:00 Intake Total 830 ml 680 ml 190 ml Output Total 2500 ml 65 ml 70 ml Balance -1670 ml 615 ml 120 ml Exam Constitutional: non-verbal, intubated Respiratory: bibasilar crackles , no wheezing Cardiovascular: regular rate and rhythm Gastrointestinal: soft, No distended Musculoskeletal: nl extremities to inspection + deja HD catheter Results Result Diagram: 07/21/16 1455 07/21/16 0530 Results 24 hrs Laboratory Tests Test 07/20/16 18:04 07/20/16 20:41 07/21/16 00:39 07/21/16 01:37 Bedside Glucose 125 122 118 Blood Gas Specimen Source Blood arterial Arterial Blood Date Drawn 07/21/2016 1:30:39 AM Arterial Blood pH (Temp corrected) 7.427 Arterial Blood pCO2 (Temp correct) 31.6 L Arterial Blood pO2 (Temp corrected) 65.6 L Arterial Blood HCO3 20.4 L Arterial Blood Base Excess -3.1 L Arterial Blood Oxygen Saturation 92.4 L Og Test ACCEPTAB Arterial Blood Gas Puncture Site Right Radial Arterial Blood Carboxyhemoglobin 0.1 Arterial Blood Methemoglobin 0.2 Blood Gas A-a O2 Differential 132.8 H Oxyhemoglobin Percent 92.1 L Total Hemoglobin 12.3 Blood Gas Temperature 37.0 Blood Gas Modality NASAL CANNULA FiO2 33.0 Blood Gas Notified Whom [place] Blood Gas Notified Time 07/21/2016 1:43:33 AM Test 07/21/16 05:25 07/21/16 05:30 07/21/16 08:00 07/21/16 09:23 Bedside Glucose 126 116 White Blood Count 20.2 #H Red Blood Count 4.13 L Hemoglobin 12.2 L Hematocrit 36.9 L Mean Corpuscular Volume 89.3 Mean Corpuscular Hemoglobin 29.5 Mean Corpuscular Hemoglobin Concent 33.1 Red Cell Distribution Width 18.4 H Platelet Count 69 #L Mean Platelet Volume 11.4 H Neutrophils % 91.0 H Band Neutrophils % 2.0 Lymphocytes % 4.0 L Monocytes % 3.0 Eosinophils % Nucleated Red Blood Cells % 1.0 H Neutrophils # 18.4 H Lymphocytes # 0.8 Monocytes # 0.6 Eosinophils # Large Platelets OCCASIONAL Sodium Level 146 H Potassium Level 4.1 Chloride Level 109 Carbon Dioxide Level 19 L Anion Gap 22 H Blood Urea Nitrogen 64 H Creatinine 2.92 H Glucose Level 133 Calcium Level 8.3 L Phosphorus Level 4.9 Magnesium Level 2.2 Blood Gas Specimen Source Blood arterial Arterial Blood Date Drawn 07/21/2016 8:03:16 AM Arterial Blood pH (Temp corrected) 7.412 Arterial Blood pCO2 (Temp correct) 32.6 L Arterial Blood pO2 (Temp corrected) 73.7 L Arterial Blood HCO3 20.3 L Arterial Blood Base Excess -3.4 L Arterial Blood Oxygen Saturation 94.4 L Og Test ACCEPTAB Arterial Blood Gas Puncture Site Right Radial Arterial Blood Carboxyhemoglobin 0.7 Arterial Blood Methemoglobin 0.3 Blood Gas A-a O2 Differential 166.8 H Oxyhemoglobin Percent 93.5 Total Hemoglobin 13.8 Blood Gas Temperature 37.0 Blood Gas Modality NASAL CANNULA FiO2 39.0 Blood Gas Notified Whom PRANAYD Blood Gas Notified Time 07/21/2016 8:30:08 AM Test 07/21/16 14:10 07/21/16 14:55 07/21/16 15:22 Bedside Glucose 131 Platelet Count 76 L Prothrombin Time 14.3 H Prothrombin Time Ratio 1.1 INR International Normalized Ratio 1.11 Activated Partial Thromboplast Time 35.0 Thrombin Time 15.5 Fibrinogen 380.0 Plasma Fibrin Degradation Products <10 D-Dimer > 45267.00 H Total Bilirubin 7.8 #H Direct Bilirubin 7.30 #H Indirect Bilirubin 0.5 Aspartate Amino Transf (AST/SGOT) 53 H Alanine Aminotransferase (ALT/SGPT) 45 Alkaline Phosphatase 149 H Total Protein 5.8 L Albumin 3.0 L Blood Gas Specimen Source Blood arterial Arterial Blood Date Drawn 07/21/2016 3:28:04 PM Arterial Blood pH (Temp corrected) 7.283 *L Arterial Blood pCO2 (Temp correct) 40.4 Arterial Blood pO2 (Temp corrected) 70.1 L Arterial Blood HCO3 18.7 L Arterial Blood Base Excess -7.5 L Arterial Blood Oxygen Saturation 91.3 L Og Test ACCEPTAB Arterial Blood Gas Puncture Site Right Radial Arterial Blood Carboxyhemoglobin 0.2 Arterial Blood Methemoglobin 0.3 Blood Gas A-a O2 Differential 378.3 H Oxyhemoglobin Percent 90.8 L Total Hemoglobin 12.8 Blood Gas Temperature 37.0 Blood Gas Modality MASK - SIMPLE FiO2 69.0 Blood Gas Critical Value Read Back EUGENE [place]IE[place] Blood Gas Notified Whom TM Blood Gas Notified Time 07/21/2016 3:36:50 PM Medications Medications Current Medications Ondansetron HCl (Zofran Inj) 4 mg Q6H PRN IV NAUSEA AND/OR VOMITING Last administered on 07/20/16 23:32; Admin Dose 4 MG; Start 06/30/16 at 16:30 Acetaminophen (Tylenol Tab) 650 mg Q6H PRN PO PAIN LEVEL 1-3 OR FEVER Last administered on 07/05/16 19:31; Admin Dose 650 MG; Start 06/30/16 at 16:30 Acetaminophen (Tylenol Supp) 650 mg Q6H PRN [place] PAIN LEVEL 1-3 OR FEVER; Start 06/30/16 at 16:30 Acetaminophen/ Hydrocodone Bitart ([place] (5/325)) 1 tab Q6H PRN PO MODERATE PAIN LEVEL 4-6 Last administered on 07/18/16 00:29; Admin Dose 1 TAB; Start at 16:30 Acetaminophen/ Hydrocodone Bitart ([place] (5/325)) 2 tab Q6H PRN PO SEVERE PAIN LEVEL 7-10 Last administered on 07/10/16 13:15; Admin Dose 2 TAB; Start at 16:30 Morphine Sulfate (morphine) 2 mg Q4H PRN IV SEVERE PAIN LEVEL 7-10 Last administered on 07/21/16 15:37; Admin Dose 2 MG; Start 06/30/16 at 16:30 Docusate Sodium (Colace) 100 mg Q12H PRN PO CONSTIPATION; Start 06/30/16 at 16: 30 Magnesium Hydroxide (Milk Of Mag) 30 ml DAILY PRN PO CONSTIPATION; Start at 16:30 Bisacodyl (Dulcolax Supp) 10 mg DAILY PRN [place] CONSTIPATION; Start 06/30/16 at 16 :30 Pantoprazole 40 mg 40 mg DAILY@06 IV Last administered on 07/21/16 05:14; Admin Dose 40 MG; Start 07/01/16 at 06:00 Erythromycin Lactobionate 250 mg/Sodium Chloride 100 ml @ 100 mls/hr Q6 IVPB Last administered on 07/21/16 12:55; Admin Dose 100 MLS/HR; Start 07/09/16 at 00 :00 Propofol 100 ml @ 2.1 mls/hr Q12H IV Last administered on 07/20/16 05:17; Admin Dose 16.8 MLS/HR; Start 07/12/16 at 21:00 Norepinephrine 16 mg/Dextrose 500 ml @ 1.87 mls/hr TITRATE IV Last administered on 07/13/16 13:43; Admin Dose 18.75 MLS/HR; Start 07/13/16 at 08: 00 Fluconazole/ Sodium Chloride (Diflucan 100 Mg/ NS (Pmx)) 50 ml @ 50 mls/hr Q24H IVPB Last administered on 07/21/16 11:43; Admin Dose 50 MLS/HR; Start at 11:00 Albuterol (Ventolin Hfa) 2 puff Q4H PRN INH SHORTNESS OF BREATH Last administered on 07/20/16 08:56; Admin Dose 2 PUFF; Start 07/14/16 at 22:00 Ipratropium [place] 4 puff 4 puff Q4H PRN INH SHORTNESS OF BREATH Last administered on 07/20/16 08:55; Admin Dose 4 PUFF; Start 07/14/16 at 22:00 Meropenem (Merrem 500 Mg/ 100 ml (Pmx)) 100 ml @ 200 mls/hr Q24H IVPB Last administered on 07/20/16 20:41; Admin Dose 200 MLS/HR; Start 07/16/16 at 21:00 Heparin Sodium (Porcine) (Heparin (5000 Units/0.5 ml)) 5,000 unit BID SC Last administered on 07/21/16 09:19; Admin Dose 5,000 UNIT; Start 07/18/16 at 21:00 Metoclopramide HCl (Reglan) 5 mg Q8 IV Last administered on 07/21/16 14:04; Admin Dose 5 MG; Start 07/18/16 at 22:00 Diagnostic Test (Pha) 1 ea 1 ea Q4 XX Last administered on 07/21/16 17:03; Admin Dose 1 EA; Start 07/19/16 at 13:00 Total Parenteral Nutrition 1,000 ml @ 30 mls/hr Q24H IV Last administered on 16:55; Admin Dose 30 MLS/HR; Start 07/19/16 at 14:00 Albumin Human 100 ml @ 0 mls/hr DAILY IV Last administered on 07/21/16 09:18; Admin Dose 100 MLS/HR; Start 07/21/16 at 09:00; Stop 07/24/16 at 08:59 Vancomycin HCl/ Sodium Chloride (Vancocin/NS) 150 ml @ 75 mls/hr Q96H IVPB Last administered on 07/20/16 16:30; Admin Dose 75 MLS/HR; Start 07/20/16 at 16 :00 SHANAE LEWIS MD July 21, 2016 17:10
[2016-07-21 17:18] LABS: AADO2 Arterial 303.2 mmHg (7.0-24.0); Allen Test ACCEPTAB; Arterial COHb 0.1 % (0.0-3.0); Arterial Fraction of Oxyhgb 95.5 % (93.0-99.0); Arterial HCO3 19.6 mmol/L (22.0-26.0); Arterial MetHb 0.4 % (0.0-1.5); Arterial Total Hemglobin 12.2 g/dl (12.0-18.0); Blood Gas IEPAP 15/5; MODE MASK - BIPAP
--- NOTE | 2016-07-21 18:09 | RADRPT ---
PROCEDURE: US Lower extremity Venous. CLINICAL INDICATION: Bilateral lower extremity edema TECHNIQUE: Multiple sonographic images of the bilateral lower extremity deep venous system was obt ained utilizing grayscale, color-flow, compressive sonography and doppler imaging with augmentation. The images were reviewed on a PACS workstation. COMPARISON: None. FINDINGS: There is normal compressibility and flow within the bilateral common femoral, femoral , posterior ti bial and popliteal veins. RPTAT: AA IMPRESSION: No sonographic evidence for deep venous thrombosis. .Anthony Ferguson MD, MD Date Time Electronically viewed and signed by .Anthony Ferguson MD, on 07/21/2016 18:09 .S/
--- NOTE | 2016-07-21 18:10 | RADRPT ---
PROCEDURE: US upper extremity Venous. CLINICAL INDICATION: Bilateral arm edema and pain TECHNIQUE: Multiple sonographic images of the bilateral upper extremity venous system was obtained utilizing grayscale, color-flow, compressive sonography and doppler imaging with augmentation. The images were reviewed on a PACS workstation. COMPARISON: None. FINDINGS: There is normal compressibility and flow within the bilateral internal jugular vein, subclavian vein , axillary vein, brachial, basilic, cephalic, radial and ulnar veins. RPTAT: AA IMPRESSION: No sonographic evidence for venous thrombosis. .Anthony Fergsuon MD, MD Date Time Electronically viewed and signed by .Anthony Ferguson MD, on 07/21/2016 18:10 .S/
--- NOTE | 2016-07-21 19:34 | CONS ---
Date/Time of Note Date/Time of Note DATE: 07/21/16 TIME: 19:33 Assessment/Plan Assessment/Plan Additional Assessment/Plan Additional Assessment/Plan IMPRESSION: 1. Biliary obstruction. Status post biliary stent, bilirubin is now going up, radiologist needs to evaluate biliary drain 2. Gram negative bacteremia, either from the urine or from the biliary system. 3. 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 4. 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 Gastric outlet obstruction secondary to tumor growing over the proximal part of the metallic stent in the duodenum. 6. Aspiration pneumonia 7. Renal failure, it is multifactorial 8. UTI with Pseudomonas and Chelsy in the urine, E. coli in the blood 9. 4+ pedal edema, fluid overload 10. Respiratory failure successfully extubated Plan Continue NG tube to intermittent suction since the Patient has got gastric outlet obstruction. Biliary obstruction status post plastic biliary stent both external and internal Respiratory failure patient is on vent Continue antibiotic When patient is more stable will place another duodenal stent. Patient is not a candidate for surgical bypass ID follow-up Continue dialysis Monitor liver function if bilirubin keeps going up and radiologist needs to evaluate biliary drainage TPN Sonogram of the liver, revealed fatty liver no obstruction Patient definitely needs cholangiogram Consultation Date/Type/Reason Admit Date/Time Jun 30, 2016 at 15:42 Initial Consult Date 06/30/16 Type of Consultation: NEPHROLOGY Referring Provider: GAMALIEL HAIR MD 24 HR Interval Summary Free Text/Dictation No complaints but appears very weak Exam/Review of Systems Vital Signs Vitals Vital Signs Date Time Temp Pulse Resp B/P Pulse Ox O2 Delivery O2 Flow Rate FiO2 07/21/16 18:00 108 21 125/84 98 BIPAP 07/21/16 17:10 60 07/21/16 17:00 98.5 07/21/16 15:30 10.0 Intake and Output 07/20/16 07/20/16 07/21/16 15:00 23:00 07:00 Intake Total 830 ml 680 ml 190 ml Output Total 2500 ml 65 ml 70 ml Balance -1670 ml 615 ml 120 ml Exam Constitutional: alert, oriented, well developed Psych: nl mood/affect, no complaints Head: atraumatic, normocephalic Eyes: EOMI, PERRL, nl conjunctiva, nl lids, nl sclera ENMT: nl external ears & nose, nl lips & teeth, nl nasal mucosa & septum Neck: non-tender, supple Respiratory: clear to auscultation, normal air movement Cardiovascular: nl pulses, regular rate and rhythm Gastrointestinal: nl liver, spleen, non-tender, soft Musculoskeletal: nl extremities to inspection, nl gait and stance Extremities: normal pulses Neurological: TRANSFER COORDINATOR II-XII intact, nl mental status, nl speech, nl strength Skin: nl turgor, No rash or lesions Lymph: nl lymph nodes Results Result Diagram: 07/21/16 1455 07/21/16 0530 Results 24 hrs Laboratory Tests Test 07/20/16 20:41 07/21/16 00:39 07/21/16 01:37 07/21/16 05:25 Bedside Glucose 122 118 126 Blood Gas Specimen Source Blood arterial Arterial Blood Date Drawn 07/21/2016 1:30:39 AM Arterial Blood pH (Temp corrected) 7.427 Arterial Blood pCO2 (Temp correct) 31.6 L Arterial Blood pO2 (Temp corrected) 65.6 L Arterial Blood HCO3 20.4 L Arterial Blood Base Excess -3.1 L Arterial Blood Oxygen Saturation 92.4 L Og Test ACCEPTAB Arterial Blood Gas Puncture Site Right Radial Arterial Blood Carboxyhemoglobin 0.1 Arterial Blood Methemoglobin 0.2 Blood Gas A-a O2 Differential 132.8 H Oxyhemoglobin Percent 92.1 L Total Hemoglobin 12.3 Blood Gas Temperature 37.0 Blood Gas Modality NASAL CANNULA FiO2 33.0 Blood Gas Notified Whom MA Blood Gas Notified Time 07/21/2016 1:43:33 AM Test 07/21/16 05:30 07/21/16 08:00 07/21/16 09:23 07/21/16 14:10 White Blood Count 20.2 #H Red Blood Count 4.13 L Hemoglobin 12.2 L Hematocrit 36.9 L Mean Corpuscular Volume 89.3 Mean Corpuscular Hemoglobin 29.5 Mean Corpuscular Hemoglobin Concent 33.1 Red Cell Distribution Width 18.4 H Platelet Count 69 #L Mean Platelet Volume 11.4 H Neutrophils % 91.0 H Band Neutrophils % 2.0 Lymphocytes % 4.0 L Monocytes % 3.0 Eosinophils % Nucleated Red Blood Cells % 1.0 H Neutrophils # 18.4 H Lymphocytes # 0.8 Monocytes # 0.6 Eosinophils # Large Platelets OCCASIONAL Sodium Level 146 H Potassium Level 4.1 Chloride Level 109 Carbon Dioxide Level 19 L Anion Gap 22 H Blood Urea Nitrogen 64 H Creatinine 2.92 H Glucose Level 133 Calcium Level 8.3 L Phosphorus Level 4.9 Magnesium Level 2.2 Blood Gas Specimen Source Blood arterial Arterial Blood Date Drawn 07/21/2016 8:03:16 AM Arterial Blood pH (Temp corrected) 7.412 Arterial Blood pCO2 (Temp correct) 32.6 L Arterial Blood pO2 (Temp corrected) 73.7 L Arterial Blood HCO3 20.3 L Arterial Blood Base Excess -3.4 L Arterial Blood Oxygen Saturation 94.4 L Og Test ACCEPTAB Arterial Blood Gas Puncture Site Right Radial Arterial Blood Carboxyhemoglobin 0.7 Arterial Blood Methemoglobin 0.3 Blood Gas A-a O2 Differential 166.8 H Oxyhemoglobin Percent 93.5 Total Hemoglobin 13.8 Blood Gas Temperature 37.0 Blood Gas Modality NASAL CANNULA FiO2 39.0 Blood Gas Notified Whom JLD Blood Gas Notified Time 07/21/2016 8:30:08 AM Bedside Glucose 116 131 Test 07/21/16 14:55 07/21/16 15:22 07/21/16 16:50 07/21/16 17:05 Platelet Count 76 L Prothrombin Time 14.3 H Prothrombin Time Ratio 1.1 INR International Normalized Ratio 1.11 Activated Partial Thromboplast Time 35.0 Thrombin Time 15.5 Fibrinogen 380.0 Plasma Fibrin Degradation Products <10 D-Dimer > 29571.00 H Total Bilirubin 7.8 #H Direct Bilirubin 7.30 #H Indirect Bilirubin 0.5 Aspartate Amino Transf (AST/SGOT) 53 H Alanine Aminotransferase (ALT/SGPT) 45 Alkaline Phosphatase 149 H Total Protein 5.8 L Albumin 3.0 L Blood Gas Specimen Source Blood arterial Blood arterial Arterial Blood Date Drawn 07/21/2016 3:28:04 PM 07/21/2016 5:07:37 PM Arterial Blood pH (Temp corrected) 7.283 *L 7.370 Arterial Blood pCO2 (Temp correct) 40.4 34.6 L Arterial Blood pO2 (Temp corrected) 70.1 L 86.5 Arterial Blood HCO3 18.7 L 19.6 L Arterial Blood Base Excess -7.5 L -5.0 L Arterial Blood Oxygen Saturation 91.3 L 96.0 Og Test ACCEPTAB ACCEPTAB Arterial Blood Gas Puncture Site Right Radial Left Radial Arterial Blood Carboxyhemoglobin 0.2 0.1 Arterial Blood Methemoglobin 0.3 0.4 Blood Gas A-a O2 Differential 378.3 H 303.2 H Oxyhemoglobin Percent 90.8 L 95.5 Total Hemoglobin 12.8 12.2 Blood Gas Temperature 37.0 37.0 Blood Gas Modality MASK - SIMPLE MASK - BIPAP FiO2 69.0 60.0 Blood Gas Critical Value Read Back EUGENE RN Blood Gas Notified Whom TM TM Blood Gas Notified Time 07/21/2016 3:36:50 PM 07/21/2016 5:17:45 PM Blood Gas Respiration Rate 16.0 Blood Gas Actual Respiration Rate 33 Blood Gas IPAP/EPAP Ratio 15/5 Bedside Glucose 135 Medications Medications Current Medications Ondansetron HCl (Zofran Inj) 4 mg Q6H PRN IV NAUSEA AND/OR VOMITING Last administered on 07/20/16 23:32; Admin Dose 4 MG; Start 06/30/16 at 16:30 Acetaminophen (Tylenol Tab) 650 mg Q6H PRN PO PAIN LEVEL 1-3 OR FEVER Last administered on 07/05/16 19:31; Admin Dose 650 MG; Start 06/30/16 at 16:30 Acetaminophen (Tylenol Supp) 650 mg Q6H PRN [place] PAIN LEVEL 1-3 OR FEVER; Start 06/30/16 at 16:30 Acetaminophen/ Hydrocodone Bitart ([place] (5/325)) 1 tab Q6H PRN PO MODERATE PAIN LEVEL 4-6 Last administered on 07/18/16 00:29; Admin Dose 1 TAB; Start at 16:30 Acetaminophen/ Hydrocodone Bitart ([place] (5/325)) 2 tab Q6H PRN PO SEVERE PAIN LEVEL 7-10 Last administered on 07/10/16 13:15; Admin Dose 2 TAB; Start at 16:30 Morphine Sulfate (morphine) 2 mg Q4H PRN IV SEVERE PAIN LEVEL 7-10 Last administered on 07/21/16 15:37; Admin Dose 2 MG; Start 06/30/16 at 16:30 Docusate Sodium (Colace) 100 mg Q12H PRN PO CONSTIPATION; Start 06/30/16 at 16: 30 Magnesium Hydroxide (Milk Of Mag) 30 ml DAILY PRN PO CONSTIPATION; Start at 16:30 Bisacodyl (Dulcolax Supp) 10 mg DAILY PRN [place] CONSTIPATION; Start 06/30/16 at 16 :30 Pantoprazole 40 mg 40 mg DAILY@06 IV Last administered on 07/21/16 05:14; Admin Dose 40 MG; Start 07/01/16 at 06:00 Erythromycin Lactobionate 250 mg/Sodium Chloride 100 ml @ 100 mls/hr Q6 IVPB Last administered on 07/21/16 17:40; Admin Dose 100 MLS/HR; Start 07/09/16 at 00 :00 Norepinephrine 16 mg/Dextrose 500 ml @ 1.87 mls/hr TITRATE IV Last administered on 07/13/16 13:43; Admin Dose 18.75 MLS/HR; Start 07/13/16 at 08: 00 Fluconazole/ Sodium Chloride (Diflucan 100 Mg/ NS (Pmx)) 50 ml @ 50 mls/hr Q24H IVPB Last administered on 07/21/16 11:43; Admin Dose 50 MLS/HR; Start at 11:00 Albuterol (Ventolin Hfa) 2 puff Q4H PRN INH SHORTNESS OF BREATH Last administered on 07/20/16 08:56; Admin Dose 2 PUFF; Start 07/14/16 at 22:00 Ipratropium [place] 4 puff 4 puff Q4H PRN INH SHORTNESS OF BREATH Last administered on 07/20/16 08:55; Admin Dose 4 PUFF; Start 07/14/16 at 22:00 Meropenem (Merrem 500 Mg/ 100 ml (Pmx)) 100 ml @ 200 mls/hr Q24H IVPB Last administered on 07/20/16 20:41; Admin Dose 200 MLS/HR; Start 07/16/16 at 21:00 Heparin Sodium (Porcine) (Heparin (5000 Units/0.5 ml)) 5,000 unit BID SC Last administered on 07/21/16 09:19; Admin Dose 5,000 UNIT; Start 07/18/16 at 21:00 Metoclopramide HCl (Reglan) 5 mg Q8 IV Last administered on 07/21/16 14:04; Admin Dose 5 MG; Start 07/18/16 at 22:00 Diagnostic Test (Pha) 1 ea 1 ea Q4 XX Last administered on 07/21/16 17:03; Admin Dose 1 EA; Start 07/19/16 at 13:00 Total Parenteral Nutrition 1,000 ml @ 30 mls/hr Q24H IV Last administered on 16:55; Admin Dose 30 MLS/HR; Start 07/19/16 at 14:00 Albumin Human 100 ml @ 0 mls/hr DAILY IV Last administered on 07/21/16 09:18; Admin Dose 100 MLS/HR; Start 07/21/16 at 09:00; Stop 07/24/16 at 08:59 Vancomycin HCl/ Sodium Chloride (Vancocin/NS) 150 ml @ 75 mls/hr Q96H IVPB Last administered on 07/20/16 16:30; Admin Dose 75 MLS/HR; Start 07/20/16 at 16 :00 TIANNA SALINAS MD July 21, 2016 19:34
[2016-07-21] MEDS: MEROPENEM 500 MG/100 ML (PMX) 100 ML IVPB SCH (21:13)
[2016-07-22] VITALS (48 sets, daily range): BP systolic 90–144; BP diastolic 70–93; PULSE 91–130; RESP 13–41
[2016-07-22] MEDS: ERYTHROMYCIN LACTOBIONATE 250 MG in SOD CHLORIDE 0.9% 100 ML IVPB SCH ×4 (00:10→17:45)
[2016-07-22] MEDS: ACCU-CHEK XX SCH ×6 (00:18→21:00)
[2016-07-22] MEDS: morphine 2 MG INJ IV PRN ×2 (02:46→12:58)
[2016-07-22] MEDS: METOCLOPRAMIDE 10 MG INJ IV SCH ×3 (05:24→23:59)
[2016-07-22] MEDS: PANTOPRAZOLE 40 MG INJ IV SCH (05:24)
[2016-07-22] MEDS: FUROSEMIDE 40 MG INJ IV SCH ×2 (05:24→17:45)
[2016-07-22 06:04] LABS: ADD SCAN DIFF NO
[2016-07-22 06:08] LABS: ABNORMAL IP MESSAGE 1; BASOPHILS % 0.1 % (0.0-2.0); EOSINOPHILS # 0.1 10^3/ul (0.0-0.5); EOSINOPHILS % 0.3 % (0.0-7.0); HEMATOCRIT 33.6 % (42.0-52.0); HEMOGLOBIN 11.3 g/dl (14.0-18.0); LYMPHOCYTES # 0.5 10^3/ul (0.8-2.9); LYMPHOCYTES % 2.4 % (15.0-51.0); MEAN CORPUSCULAR HEMOGLOBIN 30.2 pg (29.0-33.0); MEAN CORPUSCULAR HGB CONC 33.6 g/dl (32.0-37.0); MEAN CORPUSCULAR VOLUME 89.8 fl (82.0-101.0); MEAN PLATELET VOLUME 11.8 fl (7.4-10.4); MONOCYTE # 0.5 10^3/ul (0.3-0.9); MONOCYTES % 2.1 % (0.0-11.0); NEUTROPHIL # 19.8 10^3/ul (1.6-7.5); NEUTROPHILS % 91.5 % (39.0-77.0); NUCLEATED RED BLOOD CELLS% 0.1 /100WBC (0.0-0.0); PLATELET COUNT 74 10^3/UL (140-415); RED BLOOD COUNT 3.74 10^6/ul (4.70-6.10); RED CELL DISTRIBUTION WIDTH 18.6 % (11.5-14.5); WHITE BLOOD COUNT 21.6 10^3/ul (4.8-10.8)
[2016-07-22 06:32] LABS: CALCIUM 8.7 mg/dl (8.4-10.2); MAGNESIUM 2.3 mg/dl (1.7-2.5); PHOSPHORUS 5.3 mg/dl (2.5-4.9); POTASSIUM 4.4 mmol/L (3.5-5.1)
[2016-07-22 06:48] LABS: CREATININE 3.25 mg/dl (0.61-1.24)
--- NOTE | 2016-07-22 07:04 | RADRPT ---
PROCEDURE: XR Chest. CLINICAL INDICATION: Pulmonary edema TECHNIQUE: A single AP view of the chest was obtained. COMPARISON: Chest x-ray dated 07/21/2016 FINDINGS: There is a right chest Port-A-Cath with tip near the cavoatrial junction. There is a left internal j ugular central venous catheter with tip the upper right atrium. Lung volumes are low. There are diffuse bilateral alveolar opacities. No pleural effusion or pneum othorax is seen. The cardiomediastinal silhouette is within normal limits for size. The osseous st ructures are unremarkable. IMPRESSION: 1. Diffuse bilateral alveolar opacities may reflect pulmonary edema or multifocal pneumonia. No si gnificant interval change. 2. Low lung volumes. 3. Tubes and lines, as described above. RPTAT: HH .Carolyn Lew MD, MD Date Time Electronically viewed and signed by .Carolyn Lew MD, MD on 07/22/2016 07:04 .G/
[2016-07-22 08:31] LABS: Allen Test ACCEPTAB; Arterial COHb 0.1 % (0.0-3.0); Arterial Fraction of Oxyhgb 96.1 % (93.0-99.0); Arterial HCO3 19.6 mmol/L (22.0-26.0); Arterial MetHb 0.4 % (0.0-1.5); Blood Gas IEPAP 15/5; MODE MASK - BIPAP
--- NOTE | 2016-07-22 09:20 | CONS ---
Date/Time of Note Date/Time of Note DATE: 07/22/16 TIME: 09:18 Assessment/Plan Assessment/Plan Chief Complaint/Hosp Course 60 year old male with metastatic urothelial cancer who had presented during the last admission with gastric outlet obstruction status post duodenal stent . Has since been diagnosed with metastatic urothelial cancer. Patient now readmitted with sepsis with abdominal pain. He is currently in critical condition, intubated in the ICU # metastatic urothelial cancer - CT A/P demonstrates infiltrative neoplasm involving the cecum, ascending colon and hepatic flexure with extension of tumor to the serosa involving the lateral wall of the duodenum. This has advanced as compared to 05/27/2016. - I had planned to start gemcitabine 1000 mg/m2 D1, 8 and carboplatin AUC 4.5 D1 however needed to wait till bacteremia adequately treated and now patient with left lung aspiration pneumonia. Given rapidly growing tumor, would want to start chemo ISSA when patient more stable. Patient extubated 07/20/16, when patient transferred out of ICU and more ambulatory, will start gemcitabine/ carboplatin with dose adjustments depending on renal and hepatic function. Would use 50% of dose of carboplatin in ESRD on HD; would advise HD 6-12 hours after gemcitabine given with caution due to hyperbilirubinemia with initial dose 800 mg/m2. - discussed with Dr. De, duodenal stent obstructed by tumor, status post new internal biliary catheter 07/11/16. Plan for new biliary stent when more stable. - Dr. Nolan to arrange for POLST form to be filled out - Hg has improved after blood transfusion and is now > 10 # Leukocytosis and thrombocytopenia, etiology unclear - WBC now 21.6 up from 14.4, Plt down from 106 to 69 to 64. DIC panel not consistent with DIC. Concerning for sepsis. - Appreciate ID recs. - Pending peripheral smear with path review. # Elevated D-dimer > 10,000. Upper and lower extremity dopplers negative for DVT 07/21/16. # E. coli bacteremia - with sepsis secondary to biliary obstruction s/p attempted unsuccessful ERCP 07/03, s/p external percutaneous biliary drainage 07/05 - Last blood cultures were clear from 07/05/16 - will hold on removing the port for now. If ID feels it is necessary to remove and if bacteremia does not clear, will remove at that time # Biliary obstruction - s/p percutaneous biliary drain and status post new biliary catheter 07/11/16 - status post EGD that demonstrated gastric outlet obstruction with tumor growing over stent and almost complete obstructing lumen. - Now Bilirubin up to 7.8, plan for another biliary stent when more stable per GI. Plan for cholangiogram today per GI. - US Abdomen 07/19/16 demonstrated mild fatty infiltration of liver, new moderate ascites, mildly dilated CBD, 8 mm, decreased - On TPN, no feeds per GI # Diabetic Gastroparesis - cont reglan; erythromycin added as prokinetic agent per GI # CHARITY - Acute kidney injury secondary to acute tubular necrosis from septic shock and also contributing vancomycin - cont HD per renal Problems: Consultation Date/Type/Reason Admit Date/Time Jun 30, 2016 at 15:42 Initial Consult Date 06/30/16 Type of Consultation: Oncology Referring Provider: GAMALIEL HAIR MD 24 HR Interval Summary Free Text/Dictation Patient remains on BiPAP. No bleeding. Plan for cholangiogram today. Exam/Review of Systems Vital Signs Vitals Vital Signs Date Time Temp Pulse Resp B/P Pulse Ox O2 Delivery O2 Flow Rate FiO2 07/22/16 08:00 97.8 108 18 124/89 97 BIPAP 07/22/16 07:55 40 07/21/16 15:30 10.0 Intake and Output 07/21/16 07/21/16 07/22/16 15:00 23:00 07:00 Intake Total 520 ml 470 ml 310 ml Output Total 20 ml 30 ml 75 ml Balance 500 ml 440 ml 235 ml Exam ENMT: extubated, on BiPAP Neck: non-tender, supple Respiratory: clear to auscultation Gastrointestinal: soft Musculoskeletal: nl extremities to inspection, nl gait and stance; edema Results Result Diagram: 07/22/16 0530 07/22/16 0530 Results 24 hrs Laboratory Tests Test 07/21/16 09:23 07/21/16 14:10 07/21/16 14:55 07/21/16 15:22 Bedside Glucose 116 131 Platelet Count 76 L Prothrombin Time 14.3 H Prothrombin Time Ratio 1.1 INR International Normalized Ratio 1.11 Activated Partial Thromboplast Time 35.0 Thrombin Time 15.5 Fibrinogen 380.0 Plasma Fibrin Degradation Products <10 D-Dimer > 09459.00 H Total Bilirubin 7.8 #H Direct Bilirubin 7.30 #H Indirect Bilirubin 0.5 Aspartate Amino Transf (AST/SGOT) 53 H Alanine Aminotransferase (ALT/SGPT) 45 Alkaline Phosphatase 149 H Total Protein 5.8 L Albumin 3.0 L Blood Gas Specimen Source Blood arterial Arterial Blood Date Drawn 07/21/2016 3:28:04 PM Arterial Blood pH (Temp corrected) 7.283 *L Arterial Blood pCO2 (Temp correct) 40.4 Arterial Blood pO2 (Temp corrected) 70.1 L Arterial Blood HCO3 18.7 L Arterial Blood Base Excess -7.5 L Arterial Blood Oxygen Saturation 91.3 L Og Test ACCEPTAB Arterial Blood Gas Puncture Site Right Radial Arterial Blood Carboxyhemoglobin 0.2 Arterial Blood Methemoglobin 0.3 Blood Gas A-a O2 Differential 378.3 H Oxyhemoglobin Percent 90.8 L Total Hemoglobin 12.8 Blood Gas Temperature 37.0 Blood Gas Modality MASK - SIMPLE FiO2 69.0 Blood Gas Critical Value Read Back EUGENE DIEGO Blood Gas Notified Whom TM Blood Gas Notified Time 07/21/2016 3:36:50 PM Test 07/21/16 16:50 07/21/16 17:05 07/21/16 21:17 07/22/16 00:18 Blood Gas Specimen Source Blood arterial Arterial Blood Date Drawn 07/21/2016 5:07:37 PM Arterial Blood pH (Temp corrected) 7.370 Arterial Blood pCO2 (Temp correct) 34.6 L Arterial Blood pO2 (Temp corrected) 86.5 Arterial Blood HCO3 19.6 L Arterial Blood Base Excess -5.0 L Arterial Blood Oxygen Saturation 96.0 Og Test ACCEPTAB Arterial Blood Gas Puncture Site Left Radial Arterial Blood Carboxyhemoglobin 0.1 Arterial Blood Methemoglobin 0.4 Blood Gas A-a O2 Differential 303.2 H Oxyhemoglobin Percent 95.5 Total Hemoglobin 12.2 Blood Gas Temperature 37.0 Blood Gas Respiration Rate 16.0 Blood Gas Actual Respiration Rate 33 Blood Gas Modality MASK - BIPAP FiO2 60.0 Blood Gas IPAP/EPAP Ratio 18/07 Blood Gas Notified Whom TM Blood Gas Notified Time 07/21/2016 5:17:45 PM Bedside Glucose 135 140 146 Test 07/22/16 05:19 07/22/16 05:30 07/22/16 07:00 07/22/16 08:17 Bedside Glucose 167 128 White Blood Count 21.6 H Red Blood Count 3.74 L Hemoglobin 11.3 L Hematocrit 33.6 L Mean Corpuscular Volume 89.8 Mean Corpuscular Hemoglobin 30.2 Mean Corpuscular Hemoglobin Concent 33.6 Red Cell Distribution Width 18.6 H Platelet Count 74 L Mean Platelet Volume 11.8 H Neutrophils % 91.5 H Lymphocytes % 2.4 L Monocytes % 2.1 Eosinophils % 0.3 Basophils % 0.1 Nucleated Red Blood Cells % 0.1 H Neutrophils # 19.8 H Lymphocytes # 0.5 L Monocytes # 0.5 Eosinophils # 0.1 Basophils # 0.0 Nucleated Red Blood Cells # 0.0 Sodium Level 143 Potassium Level 4.4 Chloride Level 111 H Carbon Dioxide Level 20 L Anion Gap 16 Blood Urea Nitrogen 77 H Creatinine 3.25 H Glucose Level 150 Calcium Level 8.7 Phosphorus Level 5.3 H Magnesium Level 2.3 Blood Gas Specimen Source Blood arterial Arterial Blood Date Drawn 07/22/2016 7:40:57 AM Arterial Blood pH (Temp corrected) 7.370 Arterial Blood pCO2 (Temp correct) 34.6 L Arterial Blood pO2 (Temp corrected) 91.5 Arterial Blood HCO3 19.6 L Arterial Blood Base Excess -5.0 L Arterial Blood Oxygen Saturation 96.6 Og Test ACCEPTAB Arterial Blood Gas Puncture Site Right Radial Arterial Blood Carboxyhemoglobin 0.1 Arterial Blood Methemoglobin 0.4 Blood Gas A-a O2 Differential 190.0 H Oxyhemoglobin Percent 96.1 Total Hemoglobin 12.0 Blood Gas Temperature 37.0 Blood Gas Respiration Rate 16.0 Blood Gas Actual Respiration Rate 20 Blood Gas Modality MASK - BIPAP FiO2 45.0 Blood Gas IPAP/EPAP Ratio 15/5 Blood Gas Notified Whom JLD Blood Gas Notified Time 07/22/2016 8:03:38 AM Medications Medications Current Medications Ondansetron HCl (Zofran Inj) 4 mg Q6H PRN IV NAUSEA AND/OR VOMITING Last administered on 07/20/16 23:32; Admin Dose 4 MG; Start 06/30/16 at 16:30 Acetaminophen (Tylenol Tab) 650 mg Q6H PRN PO PAIN LEVEL 1-3 OR FEVER Last administered on 07/05/16 19:31; Admin Dose 650 MG; Start 06/30/16 at 16:30 Acetaminophen (Tylenol Supp) 650 mg Q6H PRN [place] PAIN LEVEL 1-3 OR FEVER; Start 06/30/16 at 16:30 Acetaminophen/ Hydrocodone Bitart ([place] (5/325)) 1 tab Q6H PRN PO MODERATE PAIN LEVEL 4-6 Last administered on 07/18/16 00:29; Admin Dose 1 TAB; Start at 16:30 Acetaminophen/ Hydrocodone Bitart ([place] (5/325)) 2 tab Q6H PRN PO SEVERE PAIN LEVEL 7-10 Last administered on 07/10/16 13:15; Admin Dose 2 TAB; Start at 16:30 Morphine Sulfate (morphine) 2 mg Q4H PRN IV SEVERE PAIN LEVEL 7-10 Last administered on 07/22/16 02:46; Admin Dose 2 MG; Start 06/30/16 at 16:30 Docusate Sodium (Colace) 100 mg Q12H PRN PO CONSTIPATION; Start 06/30/16 at 16: 30 Magnesium Hydroxide (Milk Of Mag) 30 ml DAILY PRN PO CONSTIPATION; Start at 16:30 Bisacodyl (Dulcolax Supp) 10 mg DAILY PRN [place] CONSTIPATION; Start 06/30/16 at 16 :30 Pantoprazole 40 mg 40 mg DAILY@06 IV Last administered on 07/22/16 05:24; Admin Dose 40 MG; Start 07/01/16 at 06:00 Erythromycin Lactobionate 250 mg/Sodium Chloride 100 ml @ 100 mls/hr Q6 IVPB Last administered on 07/22/16 05:24; Admin Dose 100 MLS/HR; Start 07/09/16 at 00 :00 Norepinephrine 16 mg/Dextrose 500 ml @ 1.87 mls/hr TITRATE IV Last administered on 07/13/16 13:43; Admin Dose 18.75 MLS/HR; Start 07/13/16 at 08: 00 Fluconazole/ Sodium Chloride (Diflucan 100 Mg/ NS (Pmx)) 50 ml @ 50 mls/hr Q24H IVPB Last administered on 07/21/16 11:43; Admin Dose 50 MLS/HR; Start at 11:00 Albuterol (Ventolin Hfa) 2 puff Q4H PRN INH SHORTNESS OF BREATH Last administered on 07/20/16 08:56; Admin Dose 2 PUFF; Start 07/14/16 at 22:00 Ipratropium [place] 4 puff 4 puff Q4H PRN INH SHORTNESS OF BREATH Last administered on 07/20/16 08:55; Admin Dose 4 PUFF; Start 07/14/16 at 22:00 Meropenem (Merrem 500 Mg/ 100 ml (Pmx)) 100 ml @ 200 mls/hr Q24H IVPB Last administered on 07/21/16 21:13; Admin Dose 200 MLS/HR; Start 07/16/16 at 21:00 Heparin Sodium (Porcine) (Heparin (5000 Units/0.5 ml)) 5,000 unit BID SC Last administered on 07/21/16 21:17; Admin Dose 5,000 UNIT; Start 07/18/16 at 21:00 Metoclopramide HCl (Reglan) 5 mg Q8 IV Last administered on 07/22/16 05:24; Admin Dose 5 MG; Start 07/18/16 at 22:00 Diagnostic Test (Pha) 1 ea 1 ea Q4 XX Last administered on 07/22/16 08:25; Admin Dose 1 EA; Start 07/19/16 at 13:00 Total Parenteral Nutrition 1,000 ml @ 30 mls/hr Q24H IV Last administered on 16:55; Admin Dose 30 MLS/HR; Start 07/19/16 at 14:00 Albumin Human 100 ml @ 0 mls/hr DAILY IV Last administered on 07/21/16 09:18; Admin Dose 100 MLS/HR; Start 07/21/16 at 09:00; Stop 07/24/16 at 08:59 Vancomycin HCl/ Sodium Chloride (Vancocin/NS) 150 ml @ 75 mls/hr Q96H IVPB Last administered on 07/20/16 16:30; Admin Dose 75 MLS/HR; Start 07/20/16 at 16 :00 TODARBY MD July 22, 2016 09:20
--- NOTE | 2016-07-22 09:43 | CONS ---
Date/Time of Note Date/Time of Note DATE: 07/22/16 TIME: 09:41 Assessment/Plan Assessment/Plan Additional Assessment/Plan Chest x-ray was reviewed from today which is showing bilateral pulmonary edema. Next Patient currently on BiPAP 18/07, backup rate of 16, 40% FiO2. Next Assessment recommendations; 1. Patient admitted for gastric ulcer obstruction status post EGD with left lung aspiration pneumonia now successfully extubated however requiring BiPAP on account of developing pulmonary edema likely on account of underlying renal failure. 2. Metastatic uroepithelial cancer. 3. End-stage renal disease, on hemodialysis. 4. Pneumonia. Next Continue current treatment. Patient will be dialyzed again today. Proptosis remains poor. CODE STATUS needs to be discussed with the family. Consultation Date/Type/Reason Admit Date/Time Jun 30, 2016 at 15:42 Initial Consult Date 07/12/16 Type of Consultation: Pulmonary/critical care Referring Provider: GAMALIEL HAIR MD 24 HR Interval Summary Free Text/Dictation Patient condition is stable. However he still requiring BiPAP. And appears quite comfortable. Patient denies any shortness of breath chest pain coughing wheezing. General exam; elderly male, awake alert currently in no distress. Exam/Review of Systems Vital Signs Vitals Vital Signs Date Time Temp Pulse Resp B/P Pulse Ox O2 Delivery O2 Flow Rate FiO2 07/22/16 08:00 97 07/22/16 08:00 97.8 18 124/89 97 BIPAP 07/22/16 07:55 40 07/21/16 15:30 10.0 Intake and Output 07/21/16 07/21/16 07/22/16 15:00 23:00 07:00 Intake Total 520 ml 470 ml 310 ml Output Total 20 ml 30 ml 75 ml Balance 500 ml 440 ml 235 ml Exam HEENT exam; supple neck, no JVD. No lymphadenopathy. Midline trachea. No thyromegaly. Patient does have multiple carious teeth. Patient is anicteric. Chest examined; diminished but clear vessel. S1-S2 audible, no murmurs. Regular rhythm. Abdomen examination; soft, distended. Bowel sounds audible. Extremity exam; trace edema. WEB ASSISTANT examination; no focal deficit. Results Result Diagram: 07/22/16 0530 07/22/16 0530 Results 24 hrs Laboratory Tests Test 07/21/16 14:10 07/21/16 14:55 07/21/16 15:22 07/21/16 16:50 Bedside Glucose 131 Platelet Count 76 L Prothrombin Time 14.3 H Prothrombin Time Ratio 1.1 INR International Normalized Ratio 1.11 Activated Partial Thromboplast Time 35.0 Thrombin Time 15.5 Fibrinogen 380.0 Plasma Fibrin Degradation Products <10 D-Dimer > 81863.00 H Total Bilirubin 7.8 #H Direct Bilirubin 7.30 #H Indirect Bilirubin 0.5 Aspartate Amino Transf (AST/SGOT) 53 H Alanine Aminotransferase (ALT/SGPT) 45 Alkaline Phosphatase 149 H Total Protein 5.8 L Albumin 3.0 L Blood Gas Specimen Source Blood arterial Blood arterial Arterial Blood Date Drawn 07/21/2016 3:28:04 PM 07/21/2016 5:07:37 PM Arterial Blood pH (Temp corrected) 7.283 *L 7.370 Arterial Blood pCO2 (Temp correct) 40.4 34.6 L Arterial Blood pO2 (Temp corrected) 70.1 L 86.5 Arterial Blood HCO3 18.7 L 19.6 L Arterial Blood Base Excess -7.5 L -5.0 L Arterial Blood Oxygen Saturation 91.3 L 96.0 Og Test ACCEPTAB ACCEPTAB Arterial Blood Gas Puncture Site Right Radial Left Radial Arterial Blood Carboxyhemoglobin 0.2 0.1 Arterial Blood Methemoglobin 0.3 0.4 Blood Gas A-a O2 Differential 378.3 H 303.2 H Oxyhemoglobin Percent 90.8 L 95.5 Total Hemoglobin 12.8 12.2 Blood Gas Temperature 37.0 37.0 Blood Gas Modality MASK - SIMPLE MASK - BIPAP FiO2 69.0 60.0 Blood Gas Critical Value Read Back EUGENE DIEGO Blood Gas Notified Whom TM TM Blood Gas Notified Time 07/21/2016 3:36:50 PM 07/21/2016 5:17:45 PM Blood Gas Respiration Rate 16.0 Blood Gas Actual Respiration Rate 33 Blood Gas IPAP/EPAP Ratio 15/5 Test 07/21/16 17:05 07/21/16 21:17 07/22/16 00:18 07/22/16 05:19 Bedside Glucose 135 140 146 167 Test 07/22/16 05:30 07/22/16 07:00 07/22/16 08:17 White Blood Count 21.6 H Red Blood Count 3.74 L Hemoglobin 11.3 L Hematocrit 33.6 L Mean Corpuscular Volume 89.8 Mean Corpuscular Hemoglobin 30.2 Mean Corpuscular Hemoglobin Concent 33.6 Red Cell Distribution Width 18.6 H Platelet Count 74 L Mean Platelet Volume 11.8 H Neutrophils % 91.5 H Lymphocytes % 2.4 L Monocytes % 2.1 Eosinophils % 0.3 Basophils % 0.1 Nucleated Red Blood Cells % 0.1 H Neutrophils # 19.8 H Lymphocytes # 0.5 L Monocytes # 0.5 Eosinophils # 0.1 Basophils # 0.0 Nucleated Red Blood Cells # 0.0 Sodium Level 143 Potassium Level 4.4 Chloride Level 111 H Carbon Dioxide Level 20 L Anion Gap 16 Blood Urea Nitrogen 77 H Creatinine 3.25 H Glucose Level 150 Calcium Level 8.7 Phosphorus Level 5.3 H Magnesium Level 2.3 Blood Gas Specimen Source Blood arterial Arterial Blood Date Drawn 07/22/2016 7:40:57 AM Arterial Blood pH (Temp corrected) 7.370 Arterial Blood pCO2 (Temp correct) 34.6 L Arterial Blood pO2 (Temp corrected) 91.5 Arterial Blood HCO3 19.6 L Arterial Blood Base Excess -5.0 L Arterial Blood Oxygen Saturation 96.6 Og Test ACCEPTAB Arterial Blood Gas Puncture Site Right Radial Arterial Blood Carboxyhemoglobin 0.1 Arterial Blood Methemoglobin 0.4 Blood Gas A-a O2 Differential 190.0 H Oxyhemoglobin Percent 96.1 Total Hemoglobin 12.0 Blood Gas Temperature 37.0 Blood Gas Respiration Rate 16.0 Blood Gas Actual Respiration Rate 20 Blood Gas Modality MASK - BIPAP FiO2 45.0 Blood Gas IPAP/EPAP Ratio 15/5 Blood Gas Notified Whom JLD Blood Gas Notified Time 07/22/2016 8:03:38 AM Bedside Glucose 128 Medications Medications Current Medications Ondansetron HCl (Zofran Inj) 4 mg Q6H PRN IV NAUSEA AND/OR VOMITING Last administered on 07/20/16 23:32; Admin Dose 4 MG; Start 06/30/16 at 16:30 Acetaminophen (Tylenol Tab) 650 mg Q6H PRN PO PAIN LEVEL 1-3 OR FEVER Last administered on 07/05/16 19:31; Admin Dose 650 MG; Start 06/30/16 at 16:30 Acetaminophen (Tylenol Supp) 650 mg Q6H PRN [place] PAIN LEVEL 1-3 OR FEVER; Start 06/30/16 at 16:30 Acetaminophen/ Hydrocodone Bitart ([place] (5/325)) 1 tab Q6H PRN PO MODERATE PAIN LEVEL 4-6 Last administered on 07/18/16 00:29; Admin Dose 1 TAB; Start at 16:30 Acetaminophen/ Hydrocodone Bitart ([place] (5/325)) 2 tab Q6H PRN PO SEVERE PAIN LEVEL 7-10 Last administered on 07/10/16 13:15; Admin Dose 2 TAB; Start at 16:30 Morphine Sulfate (morphine) 2 mg Q4H PRN IV SEVERE PAIN LEVEL 7-10 Last administered on 07/22/16 02:46; Admin Dose 2 MG; Start 06/30/16 at 16:30 Docusate Sodium (Colace) 100 mg Q12H PRN PO CONSTIPATION; Start 06/30/16 at 16: 30 Magnesium Hydroxide (Milk Of Mag) 30 ml DAILY PRN PO CONSTIPATION; Start at 16:30 Bisacodyl (Dulcolax Supp) 10 mg DAILY PRN [place] CONSTIPATION; Start 06/30/16 at 16 :30 Pantoprazole 40 mg 40 mg DAILY@06 IV Last administered on 07/22/16 05:24; Admin Dose 40 MG; Start 07/01/16 at 06:00 Erythromycin Lactobionate 250 mg/Sodium Chloride 100 ml @ 100 mls/hr Q6 IVPB Last administered on 07/22/16 05:24; Admin Dose 100 MLS/HR; Start 07/09/16 at 00 :00 Norepinephrine 16 mg/Dextrose 500 ml @ 1.87 mls/hr TITRATE IV Last administered on 07/13/16 13:43; Admin Dose 18.75 MLS/HR; Start 07/13/16 at 08: 00 Fluconazole/ Sodium Chloride (Diflucan 100 Mg/ NS (Pmx)) 50 ml @ 50 mls/hr Q24H IVPB Last administered on 07/21/16 11:43; Admin Dose 50 MLS/HR; Start at 11:00 Albuterol (Ventolin Hfa) 2 puff Q4H PRN INH SHORTNESS OF BREATH Last administered on 07/20/16 08:56; Admin Dose 2 PUFF; Start 07/14/16 at 22:00 Ipratropium [place] 4 puff 4 puff Q4H PRN INH SHORTNESS OF BREATH Last administered on 07/20/16 08:55; Admin Dose 4 PUFF; Start 07/14/16 at 22:00 Meropenem (Merrem 500 Mg/ 100 ml (Pmx)) 100 ml @ 200 mls/hr Q24H IVPB Last administered on 07/21/16 21:13; Admin Dose 200 MLS/HR; Start 07/16/16 at 21:00 Heparin Sodium (Porcine) (Heparin (5000 Units/0.5 ml)) 5,000 unit BID SC Last administered on 07/21/16 21:17; Admin Dose 5,000 UNIT; Start 07/18/16 at 21:00 Metoclopramide HCl (Reglan) 5 mg Q8 IV Last administered on 07/22/16 05:24; Admin Dose 5 MG; Start 07/18/16 at 22:00 Diagnostic Test (Pha) 1 ea 1 ea Q4 XX Last administered on 07/22/16 08:25; Admin Dose 1 EA; Start 07/19/16 at 13:00 Total Parenteral Nutrition 1,000 ml @ 30 mls/hr Q24H IV Last administered on 16:55; Admin Dose 30 MLS/HR; Start 07/19/16 at 14:00 Albumin Human 100 ml @ 0 mls/hr DAILY IV Last administered on 07/21/16 09:18; Admin Dose 100 MLS/HR; Start 07/21/16 at 09:00; Stop 07/24/16 at 08:59 Vancomycin HCl/ Sodium Chloride (Vancocin/NS) 150 ml @ 75 mls/hr Q96H IVPB Last administered on 07/20/16 16:30; Admin Dose 75 MLS/HR; Start 07/20/16 at 16 :[address] July 22, 2016 09:43
[2016-07-22] MEDS: ALBUMIN HUMAN 25% 100 ML IV SCH (10:00)
[2016-07-22] MEDS: HEPARIN 5,000 UNIT/0.5 ML VIAL SC SCH ×2 (10:06→21:07)
--- NOTE | 2016-07-22 10:44 | PN ---
DATE: 07/22/2016 I had extensive conversation with patient's today with critical care educator and with patient's critical care nurse in attendance, Zonia. We addressed his ongoing current clinical condition, the fact that he has been deteriorating in the hospital developing aspiration pneumonia and having to be intubated , now extubated but marginal respiratory condition and high likelihood of eventually having to go ba ck on the vent. I asked her whether or not she understood his condition and his prognosis, she does . She is aware of the fact he has widely metastatic disease, but she needed to be told once again t he extent. After a long conversation we asked her about his code status and whether or not she woul d want us to do lifesaving procedures which would be futile if we did so including intubation. She does not want that. She states that she will leave it in the hands of a physician. I told her what we would do insofar as continue with this current care, but NOT INTUBATE him and no cardiopulmonary resuscitation. Dictated By: AMANUEL BRAMBILA MD, LP/ANN MARIE Conf#: [id number] DID#: [id number]
[2016-07-22] MEDS: FLUCONAZOLE 100 MG/NS (PMX) 50 ML IVPB SCH (11:31)
--- NOTE | 2016-07-22 12:45 | PN ---
Date/Time of Note Date/Time of Note DATE: 07/22/16 TIME: 12:41 Assessment/Plan VTE Prophylaxis VTE Prophylaxis Intervention: SCD's VTE Contraindication Reason: thrombocytopenia Lines/Catheters Urinary Cath still in place: Yes Reason Cath still needed: other (indicate) Assessment/Plan Assessment/Plan 60 year old male with metastatic uroepithelial cancer who had presented during the last admission with gastric outlet obstruction status post duodenal stent . Has since been diagnosed with metastatic urothelial cancer. Patient now readmitted with sepsis with abdominal pain. 1. Septic Shock 2/2 Aspiration PNA : Now off pressors, leukocytosis worsening with bandemia. 2. Transaminitis with Hyperbilirubinemia 2nd biliary obstruction from metastatic cancer 3. Metastatic Urothelial cancer with possible carcinomatosis 4. Tumor Obstructed duodenum with gastric outlet obstruction s/p duodenal stent 06/02/16 and with new ERCP showing tumor eroding stent and completely obstructing lumen 5. Steatosis 6. Acute Respiratory Failure secondary to aspiration pneumonia: Extubated , now on BiPAP 7. Acute kidney injury secondary to acute tubular necrosis from septic shock and also contributing vancomycin requiring HD 8. S/p ecoli bacteremia and pseudomonas UTI 9. Chelsy UTI on fluconazole 10. TPN therapy PLAN: * Patient remains high reintubation risk. Will need continued aggressive diuresis/dialysis. 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 CRITICAL CARE TIME: >35 mins Subjective 24 Hr Interval Summary Free Text/Dictation Patient sent. Was maintained on BiPAP all night. Remains stable on BiPAP. Nursing reports no overnight events. Exam/Review of Systems Vital Signs Vitals Vital Signs Date Time Temp Pulse Resp B/P Pulse Ox O2 Delivery O2 Flow Rate FiO2 07/22/16 11:34 101 99 35 07/22/16 10:00 25 125/90 BIPAP 07/22/16 08:00 97.8 07/21/16 15:30 10.0 Intake and Output 07/21/16 07/21/16 07/22/16 15:00 23:00 07:00 Intake Total 520 ml 470 ml 310 ml Output Total 20 ml 30 ml 75 ml Balance 500 ml 440 ml 235 ml Exam Constitutional: alert / lethargic / follows commands / responds to greetings ENMT: icteric ++ Respiratory: clear to auscultation / diminished / tachypneic / bipap Cardiovascular: regular rate and rhythm Gastrointestinal: soft, biliary drainage still in place with minimal greenish drain No distended his office dysphagia Musculoskeletal: Daniel edema pitting / diffuse anasarca Genitourinary - Male: No nl scrotum (severe scrotal edema) Results Result Diagram: 07/22/16 0530 07/22/16 0530 Results 24 hrs Laboratory Tests Test 07/21/16 14:10 07/21/16 14:55 07/21/16 15:22 07/21/16 16:50 Bedside Glucose 131 Platelet Count 76 L Prothrombin Time 14.3 H Prothrombin Time Ratio 1.1 INR International Normalized Ratio 1.11 Activated Partial Thromboplast Time 35.0 Thrombin Time 15.5 Fibrinogen 380.0 Plasma Fibrin Degradation Products <10 D-Dimer > 36543.00 H Total Bilirubin 7.8 #H Direct Bilirubin 7.30 #H Indirect Bilirubin 0.5 Aspartate Amino Transf (AST/SGOT) 53 H Alanine Aminotransferase (ALT/SGPT) 45 Alkaline Phosphatase 149 H Total Protein 5.8 L Albumin 3.0 L Blood Gas Specimen Source Blood arterial Blood arterial Arterial Blood Date Drawn 07/21/2016 3:28:04 PM 07/21/2016 5:07:37 PM Arterial Blood pH (Temp corrected) 7.283 *L 7.370 Arterial Blood pCO2 (Temp correct) 40.4 34.6 L Arterial Blood pO2 (Temp corrected) 70.1 L 86.5 Arterial Blood HCO3 18.7 L 19.6 L Arterial Blood Base Excess -7.5 L -5.0 L Arterial Blood Oxygen Saturation 91.3 L 96.0 Og Test ACCEPTAB ACCEPTAB Arterial Blood Gas Puncture Site Right Radial Left Radial Arterial Blood Carboxyhemoglobin 0.2 0.1 Arterial Blood Methemoglobin 0.3 0.4 Blood Gas A-a O2 Differential 378.3 H 303.2 H Oxyhemoglobin Percent 90.8 L 95.5 Total Hemoglobin 12.8 12.2 Blood Gas Temperature 37.0 37.0 Blood Gas Modality MASK - SIMPLE MASK - BIPAP FiO2 69.0 60.0 Blood Gas Critical Value Read Back EUGENE DIEGO Blood Gas Notified Whom TM TM Blood Gas Notified Time 07/21/2016 3:36:50 PM 07/21/2016 5:17:45 PM Blood Gas Respiration Rate 16.0 Blood Gas Actual Respiration Rate 33 Blood Gas IPAP/EPAP Ratio 15/5 Test 07/21/16 17:05 07/21/16 21:17 07/22/16 00:18 07/22/16 05:19 Bedside Glucose 135 140 146 167 Test 07/22/16 05:30 07/22/16 07:00 07/22/16 08:17 07/22/16 12:33 White Blood Count 21.6 H Red Blood Count 3.74 L Hemoglobin 11.3 L Hematocrit 33.6 L Mean Corpuscular Volume 89.8 Mean Corpuscular Hemoglobin 30.2 Mean Corpuscular Hemoglobin Concent 33.6 Red Cell Distribution Width 18.6 H Platelet Count 74 L Mean Platelet Volume 11.8 H Neutrophils % 91.5 H Lymphocytes % 2.4 L Monocytes % 2.1 Eosinophils % 0.3 Basophils % 0.1 Nucleated Red Blood Cells % 0.1 H Neutrophils # 19.8 H Lymphocytes # 0.5 L Monocytes # 0.5 Eosinophils # 0.1 Basophils # 0.0 Nucleated Red Blood Cells # 0.0 Sodium Level 143 Potassium Level 4.4 Chloride Level 111 H Carbon Dioxide Level 20 L Anion Gap 16 Blood Urea Nitrogen 77 H Creatinine 3.25 H Glucose Level 150 Calcium Level 8.7 Phosphorus Level 5.3 H Magnesium Level 2.3 Blood Gas Specimen Source Blood arterial Arterial Blood Date Drawn 07/22/2016 7:40:57 AM Arterial Blood pH (Temp corrected) 7.370 Arterial Blood pCO2 (Temp correct) 34.6 L Arterial Blood pO2 (Temp corrected) 91.5 Arterial Blood HCO3 19.6 L Arterial Blood Base Excess -5.0 L Arterial Blood Oxygen Saturation 96.6 Og Test ACCEPTAB Arterial Blood Gas Puncture Site Right Radial Arterial Blood Carboxyhemoglobin 0.1 Arterial Blood Methemoglobin 0.4 Blood Gas A-a O2 Differential 190.0 H Oxyhemoglobin Percent 96.1 Total Hemoglobin 12.0 Blood Gas Temperature 37.0 Blood Gas Respiration Rate 16.0 Blood Gas Actual Respiration Rate 20 Blood Gas Modality MASK - BIPAP FiO2 45.0 Blood Gas IPAP/EPAP Ratio 15/5 Blood Gas Notified Whom JLD Blood Gas Notified Time 07/22/2016 8:03:38 AM Bedside Glucose 128 147 Medications Medications Current Medications Ondansetron HCl (Zofran Inj) 4 mg Q6H PRN IV NAUSEA AND/OR VOMITING Last administered on 07/20/16 23:32; Admin Dose 4 MG; Start 06/30/16 at 16:30 Acetaminophen (Tylenol Tab) 650 mg Q6H PRN PO PAIN LEVEL 1-3 OR FEVER Last administered on 07/05/16 19:31; Admin Dose 650 MG; Start 06/30/16 at 16:30 Acetaminophen (Tylenol Supp) 650 mg Q6H PRN [place] PAIN LEVEL 1-3 OR FEVER; Start 06/30/16 at 16:30 Acetaminophen/ Hydrocodone Bitart ([place] (5/325)) 1 tab Q6H PRN PO MODERATE PAIN LEVEL 4-6 Last administered on 07/18/16 00:29; Admin Dose 1 TAB; Start at 16:30 Acetaminophen/ Hydrocodone Bitart ([place] (5/325)) 2 tab Q6H PRN PO SEVERE PAIN LEVEL 7-10 Last administered on 07/10/16 13:15; Admin Dose 2 TAB; Start at 16:30 Morphine Sulfate (morphine) 2 mg Q4H PRN IV SEVERE PAIN LEVEL 7-10 Last administered on 07/22/16 02:46; Admin Dose 2 MG; Start 06/30/16 at 16:30 Docusate Sodium (Colace) 100 mg Q12H PRN PO CONSTIPATION; Start 06/30/16 at 16: 30 Magnesium Hydroxide (Milk Of Mag) 30 ml DAILY PRN PO CONSTIPATION; Start at 16:30 Bisacodyl (Dulcolax Supp) 10 mg DAILY PRN [place] CONSTIPATION; Start 06/30/16 at 16 :30 Pantoprazole 40 mg 40 mg DAILY@06 IV Last administered on 07/22/16 05:24; Admin Dose 40 MG; Start 07/01/16 at 06:00 Erythromycin Lactobionate 250 mg/Sodium Chloride 100 ml @ 100 mls/hr Q6 IVPB Last administered on 07/22/16 05:24; Admin Dose 100 MLS/HR; Start 07/09/16 at 00 :00 Norepinephrine 16 mg/Dextrose 500 ml @ 1.87 mls/hr TITRATE IV Last administered on 07/13/16 13:43; Admin Dose 18.75 MLS/HR; Start 07/13/16 at 08: 00 Fluconazole/ Sodium Chloride (Diflucan 100 Mg/ NS (Pmx)) 50 ml @ 50 mls/hr Q24H IVPB Last administered on 07/22/16 11:31; Admin Dose 50 MLS/HR; Start at 11:00 Albuterol (Ventolin Hfa) 2 puff Q4H PRN INH SHORTNESS OF BREATH Last administered on 07/20/16 08:56; Admin Dose 2 PUFF; Start 07/14/16 at 22:00 Ipratropium [place] 4 puff 4 puff Q4H PRN INH SHORTNESS OF BREATH Last administered on 07/20/16 08:55; Admin Dose 4 PUFF; Start 07/14/16 at 22:00 Meropenem (Merrem 500 Mg/ 100 ml (Pmx)) 100 ml @ 200 mls/hr Q24H IVPB Last administered on 07/21/16 21:13; Admin Dose 200 MLS/HR; Start 07/16/16 at 21:00 Heparin Sodium (Porcine) (Heparin (5000 Units/0.5 ml)) 5,000 unit BID SC Last administered on 07/22/16 10:06; Admin Dose 5,000 UNIT; Start 07/18/16 at 21:00 Metoclopramide HCl (Reglan) 5 mg Q8 IV Last administered on 07/22/16 05:24; Admin Dose 5 MG; Start 07/18/16 at 22:00 Diagnostic Test (Pha) 1 ea 1 ea Q4 XX Last administered on 07/22/16 08:25; Admin Dose 1 EA; Start 07/19/16 at 13:00 Total Parenteral Nutrition 1,000 ml @ 30 mls/hr Q24H IV Last administered on 16:55; Admin Dose 30 MLS/HR; Start 07/19/16 at 14:00 Albumin Human 100 ml @ 0 mls/hr DAILY IV Last administered on 5/19/17at 10:00; Admin Dose 100 MLS/HR; Start 07/21/16 at 09:00; Stop 07/24/16 at 08:59 Vancomycin HCl/ Sodium Chloride (Vancocin/NS) 150 ml @ 75 mls/hr Q96H IVPB Last administered on 07/20/16 16:30; Admin Dose 75 MLS/HR; Start 07/20/16 at 16 :00 Procedures Procedures PROCEDURE: XR Chest. CLINICAL INDICATION: Pulmonary edema TECHNIQUE: A single AP view of the chest was obtained. COMPARISON: Chest x-ray dated 07/21/2016 FINDINGS: There is a right chest Port-A-Cath with tip near the cavoatrial junction. There is a left internal jugular central venous catheter with tip the upper right atrium. Lung volumes are low. There are diffuse bilateral alveolar opacities. No pleural effusion or pneumothorax is seen. The cardiomediastinal silhouette is within normal limits for size. The osseous structures are unremarkable. IMPRESSION: 1. Diffuse bilateral alveolar opacities may reflect pulmonary edema or multifocal pneumonia. No significant interval change. 2. Low lung volumes. 3. Tubes and lines, as described above. RPTAT: HH .Carolyn Lew MD, MD Date Time Electronically viewed and signed by .Carolyn Lew MD, on 07/22/2016 07 :04 ELLIOTT ALEMAN July 22, 2016 12:45
[2016-07-22] MEDS ORDERED: IOHEXOL 300MG/ML 30 ML BTL ONE ×2 (15:02→18:14)
[2016-07-22] MEDS ORDERED: morphine 2 MG INJ IV STA (15:48)
--- NOTE | 2016-07-22 17:17 | CONS ---
Date/Time of Note Date/Time of Note DATE: 07/22/16 TIME: 17:14 Assessment/Plan Assessment/Plan Additional Assessment/Plan IMPRESSION: 1. Biliary obstruction. Status post biliary stent, bilirubin is now going up, radiologist needs to evaluate biliary drain 2. Gram negative bacteremia, either from the urine or from the biliary system. 3. 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 4. 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 Gastric outlet obstruction secondary to tumor growing over the proximal part of the metallic stent in the duodenum. 6. Aspiration pneumonia 7. Renal failure, it is multifactorial 8. UTI with Pseudomonas and Chelsy in the urine, E. coli in the blood 9. 4+ pedal edema, fluid overload 10. Respiratory failure successfully extubated Plan Continue NG tube to intermittent suction since the Patient has got gastric outlet obstruction. Biliary obstruction status post plastic biliary stent both external and internal Respiratory failure patient is on vent Continue antibiotic When patient is more stable will place another duodenal stent. Patient is not a candidate for surgical bypass ID follow-up Continue dialysis Monitor liver function if bilirubin keeps going up and radiologist needs to evaluate biliary drainage TPN Sonogram of the liver, revealed fatty liver no obstruction Patient definitely needs cholangiogram. Awaiting for the cholangiogram today. Tumor seems to be very aggressive. Discussed with the . Prognosis remains poor explained to her. Consultation Date/Type/Reason Admit Date/Time Jun 30, 2016 at 15:42 Initial Consult Date 06/30/16 Type of Consultation: Pulmonary/critical care Referring Provider: GAMALIEL HAIR MD 24 HR Interval Summary Free Text/Dictation As per the patient is a pain all over the body No nausea no vomiting Exam/Review of Systems Vital Signs Vitals Vital Signs Date Time Temp Pulse Resp B/P Pulse Ox O2 Delivery O2 Flow Rate FiO2 07/22/16 16:35 124 07/22/16 16:00 97.8 25 104/88 98 BIPAP 07/22/16 15:37 35 07/21/16 15:30 10.0 Intake and Output 07/21/16 07/21/16 07/22/16 15:00 23:00 07:00 Intake Total 520 ml 470 ml 340 ml Output Total 20 ml 30 ml 75 ml Balance 500 ml 440 ml 265 ml Exam Constitutional: alert, oriented, well developed Psych: nl mood/affect, no complaints Head: atraumatic, normocephalic Eyes: EOMI, PERRL, nl conjunctiva, nl lids, nl sclera ENMT: nl external ears & nose, nl lips & teeth, nl nasal mucosa & septum Neck: non-tender, supple Respiratory: clear to auscultation, normal air movement Cardiovascular: nl pulses, regular rate and rhythm Gastrointestinal: nl liver, spleen, non-tender, soft Musculoskeletal: nl extremities to inspection, nl gait and stance Extremities: normal pulses 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, nl mental status, nl speech, nl strength Skin: nl turgor, No rash or lesions Lymph: nl lymph nodes Results Result Diagram: 07/22/1652907/22/16529 Results 24 hrs Laboratory Tests Test 07/21/16 21:17 07/22/16 00:18 07/22/16 05:19 07/22/16 05:30 Bedside Glucose 140 146 167 White Blood Count 21.6 H Red Blood Count 3.74 L Hemoglobin 11.3 L Hematocrit 33.6 L Mean Corpuscular Volume 89.8 Mean Corpuscular Hemoglobin 30.2 Mean Corpuscular Hemoglobin Concent 33.6 Red Cell Distribution Width 18.6 H Platelet Count 74 L Mean Platelet Volume 11.8 H Neutrophils % 91.5 H Lymphocytes % 2.4 L Monocytes % 2.1 Eosinophils % 0.3 Basophils % 0.1 Nucleated Red Blood Cells % 0.1 H Neutrophils # 19.8 H Lymphocytes # 0.5 L Monocytes # 0.5 Eosinophils # 0.1 Basophils # 0.0 Nucleated Red Blood Cells # 0.0 Sodium Level 143 Potassium Level 4.4 Chloride Level 111 H Carbon Dioxide Level 20 L Anion Gap 16 Blood Urea Nitrogen 77 H Creatinine 3.25 H Glucose Level 150 Calcium Level 8.7 Phosphorus Level 5.3 H Magnesium Level 2.3 Test 07/22/16 07:00 07/22/16 08:17 07/22/16 12:33 Blood Gas Specimen Source Blood arterial Arterial Blood Date Drawn 07/22/2016 7:40:57 AM Arterial Blood pH (Temp corrected) 7.370 Arterial Blood pCO2 (Temp correct) 34.6 L Arterial Blood pO2 (Temp corrected) 91.5 Arterial Blood HCO3 19.6 L Arterial Blood Base Excess -5.0 L Arterial Blood Oxygen Saturation 96.6 Og Test ACCEPTAB Arterial Blood Gas Puncture Site Right Radial Arterial Blood Carboxyhemoglobin 0.1 Arterial Blood Methemoglobin 0.4 Blood Gas A-a O2 Differential 190.0 H Oxyhemoglobin Percent 96.1 Total Hemoglobin 12.0 Blood Gas Temperature 37.0 Blood Gas Respiration Rate 16.0 Blood Gas Actual Respiration Rate 20 Blood Gas Modality MASK - BIPAP FiO2 45.0 Blood Gas IPAP/EPAP Ratio 15/ Blood Gas Notified Whom JLD Blood Gas Notified Time 07/22/2016 8:03:38 AM Bedside Glucose 128 147 Medications Medications Current Medications Ondansetron HCl (Zofran Inj) 4 mg Q6H PRN IV NAUSEA AND/OR VOMITING Last administered on 07/20/16 23:32; Admin Dose 4 MG; Start 06/30/16 at 16:30 Acetaminophen (Tylenol Tab) 650 mg Q6H PRN PO PAIN LEVEL 1-3 OR FEVER Last administered on 07/05/16 19:31; Admin Dose 650 MG; Start 06/30/16 at 16:30 Acetaminophen (Tylenol Supp) 650 mg Q6H PRN [place] PAIN LEVEL 1-3 OR FEVER; Start 06/30/16 at 16:30 Acetaminophen/ Hydrocodone Bitart ([place] (5/325)) 1 tab Q6H PRN PO MODERATE PAIN LEVEL 4-6 Last administered on 07/18/16 00:29; Admin Dose 1 TAB; Start at 16:30 Acetaminophen/ Hydrocodone Bitart ([place] (5/325)) 2 tab Q6H PRN PO SEVERE PAIN LEVEL 7-10 Last administered on 07/10/16 13:15; Admin Dose 2 TAB; Start at 16:30 Docusate Sodium (Colace) 100 mg Q12H PRN PO CONSTIPATION; Start 06/30/16 at 16: 30 Magnesium Hydroxide (Milk Of Mag) 30 ml DAILY PRN PO CONSTIPATION; Start at 16:30 Bisacodyl (Dulcolax Supp) 10 mg DAILY PRN [place] CONSTIPATION; Start 06/30/16 at 16 :30 Pantoprazole 40 mg 40 mg DAILY@06 IV Last administered on 07/22/16 05:24; Admin Dose 40 MG; Start 07/01/16 at 06:00 Erythromycin Lactobionate 250 mg/Sodium Chloride 100 ml @ 100 mls/hr Q6 IVPB Last administered on 07/22/16 12:58; Admin Dose 100 MLS/HR; Start 07/09/16 at 00 :00 Norepinephrine 16 mg/Dextrose 500 ml @ 1.87 mls/hr TITRATE IV Last administered on 07/13/16 13:43; Admin Dose 18.75 MLS/HR; Start 07/13/16 at 08: 00 Fluconazole/ Sodium Chloride (Diflucan 100 Mg/ NS (Pmx)) 50 ml @ 50 mls/hr Q24H IVPB Last administered on 07/22/16 11:31; Admin Dose 50 MLS/HR; Start at 11:00 Albuterol (Ventolin Hfa) 2 puff Q4H PRN INH SHORTNESS OF BREATH Last administered on 07/20/16 08:56; Admin Dose 2 PUFF; Start 07/14/16 at 22:00 Ipratropium [place] 4 puff 4 puff Q4H PRN INH SHORTNESS OF BREATH Last administered on 07/20/16 08:55; Admin Dose 4 PUFF; Start 07/14/16 at 22:00 Meropenem (Merrem 500 Mg/ 100 ml (Pmx)) 100 ml @ 200 mls/hr Q24H IVPB Last administered on 07/21/16 21:13; Admin Dose 200 MLS/HR; Start 07/16/16 at 21:00 Heparin Sodium (Porcine) (Heparin (5000 Units/0.5 ml)) 5,000 unit BID SC Last administered on 07/22/16 10:06; Admin Dose 5,000 UNIT; Start 07/18/16 at 21:00 Metoclopramide HCl (Reglan) 5 mg Q8 IV Last administered on 07/22/16 05:24; Admin Dose 5 MG; Start 07/18/16 at 22:00 Diagnostic Test (Pha) 1 ea 1 ea Q4 XX Last administered on 07/22/16 12:52; Admin Dose 1 EA; Start 07/19/16 at 13:00 Total Parenteral Nutrition 1,000 ml @ 30 mls/hr Q24H IV Last administered on 16:55; Admin Dose 30 MLS/HR; Start 07/19/16 at 14:00 Albumin Human 100 ml @ 0 mls/hr DAILY IV Last administered on 07/22/16 10:00; Admin Dose 100 MLS/HR; Start 07/21/16 at 09:00; Stop 07/24/16 at 08:59 Vancomycin HCl/ Sodium Chloride (Vancocin/NS) 150 ml @ 75 mls/hr Q96H IVPB Last administered on 07/20/16 16:30; Admin Dose 75 MLS/HR; Start 07/20/16 at 16 :00 Morphine Sulfate (morphine) 4 mg Q4H PRN IV SEVERE PAIN LEVEL 7-10; Start 07/22 at 16:30 TIANNA SALINAS MD July 22, 2016 17:17
[2016-07-22] MEDS: TPN 1,000 ML IV SCH (18:42)
--- NOTE | 2016-07-22 19:38 | PN ---
Date/Time of Note Date/Time of Note DATE: 07/20/16 TIME: 19:28 Assessment/Plan Lines/Catheters IV Catheter Type (from [facility]): Peripheral IV [place] in Place (from [facility]): Yes Assessment/Plan Chief Complaint/Hosp Course 1. Sepsis 2nd biliary obstruction s/p attempted unsuccessful ERCP 07/03. s/p PTC 07/05. s/p EGD showing tumor growing over stent and causing obstruction 07/12. Aspiration pneumonia s/p intubation 07/12 and now extubation 07/20. -abx -ivf -ngt -supportive care -Drain -Chemo [place] after infection controlled 2. Transaminitis with Hyperbilirubinemia ? 2nd biliary obstruction ? 2nd tumor s /p PTC 07/05 -as above 3. Metastatic Urothelial cancer with ? carcinomatosis -heme/onc for tx after sepsis resolution 4. Hx obstructed duodenum with gastric outlet obstruction s/p duodenal stent. Now with hiccups and difficulty eating. s/p EGD showing tumor growing over stent and causing obstruction 07/12 -NGT -Chemo [place] if possible 5. Steatosis -Eventual nutrition and lifestyle optimization 6. Weight loss probably secondary to above -As above Thank you, Late entry 07/20 Problems: Subjective 24 Hr Interval Summary Extubated. No f/c. No cough. No seizure. No blood per mouth/rectum. No bloating. No rashes. No vomiting. Exam/Review of Systems Vital Signs Vitals Vital Signs Date Time Temp Pulse Resp B/P Pulse Ox O2 Delivery O2 Flow Rate FiO2 07/22/16 18:00 107 16 115/84 96 07/22/16 17:32 35 07/22/16 16:00 97.8 BIPAP 07/21/16 15:30 10.0 Intake and Output 07/21/16 07/21/16 07/22/16 15:00 23:00 07:00 Intake Total 520 ml 470 ml 340 ml Output Total 20 ml 30 ml 75 ml Balance 500 ml 440 ml 265 ml Exam Free Text/Dictation Constitutional: Uncomfortable Psych: Anxious Head: atraumatic, normocephalic Eyes: EOMI, PERRL, nl conjunctiva, icterus ENMT: mucosa pink and moist, nl external ears & nose, nl lips & teeth Neck: non-tender, supple, No jvd, No masses Respiratory: No wheezing. Min crackles. Cardiovascular: S1S2, tachy, no edema Gastrointestinal: NT, soft, No distended, No rebound or guarding Genitourinary - Male: nl scrotum Musculoskeletal: nl extremities to inspection, nl gait and stance, No joint tenderness Extremities: normal pulses, No calf tenderness, No cyanosis Neurological: nl mental status, nl speech, nl strength Skin: nl turgor, jaundice. No diaphoresis, No rash or lesions Lymph: No nl lymph nodes (Inguinal) Results Result Diagram: 07/22/16 0530 07/22/16 0530 DIAMOND FITZGERALD MD July 22, 2016 19:38
--- NOTE | 2016-07-22 19:39 | PN ---
Date/Time of Note Date/Time of Note DATE: 07/21/16 TIME: 19:38 Assessment/Plan Lines/Catheters IV Catheter Type (from [facility]): Peripheral IV [place] in Place (from [facility]): Yes Assessment/Plan Chief Complaint/Hosp Course 1. Sepsis 2nd biliary obstruction s/p attempted unsuccessful ERCP 07/03. s/p PTC 07/05. s/p EGD showing tumor growing over stent and causing obstruction 07/12. Aspiration pneumonia s/p intubation 07/12 and now extubation 07/20. -abx -ivf -ngt -supportive care -Drain -Chemo [place] after infection controlled 2. Transaminitis with Hyperbilirubinemia ? 2nd biliary obstruction ? 2nd tumor s /p PTC 07/05 -as above 3. Metastatic Urothelial cancer with ? carcinomatosis -heme/onc for tx after sepsis resolution 4. Hx obstructed duodenum with gastric outlet obstruction s/p duodenal stent. Now with hiccups and difficulty eating. s/p EGD showing tumor growing over stent and causing obstruction 07/12 -NGT -Chemo [place] if possible 5. Steatosis -Eventual nutrition and lifestyle optimization 6. Weight loss probably secondary to above -As above Thank you, Late entry 07/21 Problems: Subjective 24 Hr Interval Summary Bipap. No f/c. No cough. No seizure. No blood per mouth/rectum. No bloating. No rashes. No vomiting. Exam/Review of Systems Vital Signs Vitals Vital Signs Date Time Temp Pulse Resp B/P Pulse Ox O2 Delivery O2 Flow Rate FiO2 07/22/16 18:00 107 16 115/84 96 07/22/16 17:32 35 07/22/16 16:00 97.8 BIPAP 07/21/16 15:30 10.0 Intake and Output 07/21/16 07/21/16 07/22/16 15:00 23:00 07:00 Intake Total 520 ml 470 ml 340 ml Output Total 20 ml 30 ml 75 ml Balance 500 ml 440 ml 265 ml Exam Free Text/Dictation Constitutional: Uncomfortable Psych: Anxious Head: atraumatic, normocephalic Eyes: EOMI, PERRL, nl conjunctiva, icterus ENMT: mucosa pink and moist, nl external ears & nose, nl lips & teeth Neck: non-tender, supple, No jvd, No masses Respiratory: No wheezing. Min crackles. Cardiovascular: S1S2, tachy, no edema Gastrointestinal: NT, soft, No distended, No rebound or guarding Genitourinary - Male: nl scrotum Musculoskeletal: nl extremities to inspection, nl gait and stance, No joint tenderness Extremities: normal pulses, No calf tenderness, No cyanosis Neurological: nl mental status, nl speech, nl strength Skin: nl turgor, jaundice. No diaphoresis, No rash or lesions Lymph: No nl lymph nodes (Inguinal) Results Result Diagram: 07/22/1630 07/22/16 0530 DIAMOND FITZGERALD MD July 22, 2016 19:39
--- NOTE | 2016-07-22 19:40 | PN ---
Date/Time of Note Date/Time of Note DATE: 07/22/16 TIME: 19:39 Assessment/Plan Lines/Catheters IV Catheter Type (from [facility]): Peripheral IV [place] in Place (from [facility]): Yes Assessment/Plan Chief Complaint/Hosp Course 1. Sepsis 2nd biliary obstruction s/p attempted unsuccessful ERCP 07/03. s/p PTC 07/05. s/p EGD showing tumor growing over stent and causing obstruction 07/12. Aspiration pneumonia s/p intubation 07/12 and now extubation 07/20. -abx -ivf -ngt -supportive care -Drain -Chemo [place] after infection controlled 2. Transaminitis with Hyperbilirubinemia ? 2nd biliary obstruction ? 2nd tumor s /p PTC 07/05 -as above 3. Metastatic Urothelial cancer with ? carcinomatosis -heme/onc for tx after sepsis resolution 4. Hx obstructed duodenum with gastric outlet obstruction s/p duodenal stent. Now with hiccups and difficulty eating. s/p EGD showing tumor growing over stent and causing obstruction 07/12 -NGT -Chemo [place] if possible 5. Steatosis -Eventual nutrition and lifestyle optimization 6. Weight loss probably secondary to above -As above Thank you, Problems: Subjective 24 Hr Interval Summary Respiratory compromise. No f/c. No cough. No seizure. No blood per mouth/ rectum. No bloating. No rashes. No vomiting. Exam/Review of Systems Vital Signs Vitals Vital Signs Date Time Temp Pulse Resp B/P Pulse Ox O2 Delivery O2 Flow Rate FiO2 07/22/16 18:00 107 16 115/84 96 07/22/16 17:32 35 07/22/16 16:00 97.8 BIPAP 07/21/16 15:30 10.0 Intake and Output 07/21/16 07/21/16 07/22/16 15:00 23:00 07:00 Intake Total 520 ml 470 ml 340 ml Output Total 20 ml 30 ml 75 ml Balance 500 ml 440 ml 265 ml Exam Free Text/Dictation Constitutional: Uncomfortable Psych: Anxious Head: atraumatic, normocephalic Eyes: EOMI, PERRL, nl conjunctiva, icterus ENMT: mucosa pink and moist, nl external ears & nose, nl lips & teeth Neck: non-tender, supple, No jvd, No masses Respiratory: No wheezing. Min crackles. Cardiovascular: S1S2, tachy, no edema Gastrointestinal: NT, soft, No distended, No rebound or guarding Genitourinary - Male: nl scrotum Musculoskeletal: nl extremities to inspection, nl gait and stance, No joint tenderness Extremities: normal pulses, No calf tenderness, No cyanosis Neurological: nl mental status, nl speech, nl strength Skin: nl turgor, jaundice. No diaphoresis, No rash or lesions Lymph: No nl lymph nodes (Inguinal) Results Result Diagram: 07/22/16 0530 07/22/16 0530 DIAMOND FITZGERALD MD July 22, 2016 19:40
[2016-07-22] MEDS: MEROPENEM 500 MG/100 ML (PMX) 100 ML IVPB SCH (21:00)
--- NOTE | 2016-07-22 22:45 | CONS ---
Date/Time of Note Date/Time of Note DATE: 07/22/16 TIME: 22:44 Assessment/Plan Assessment/Plan Additional Assessment/Plan 1. Acute fluid overload with anasarca. 2. Acute kidney injury secondary to acute tubular necrosis from septic shock and also contributing vancomycin.did not improve, started on HD during this admission 3. Metabolic acidosis secondary to acute renal failure. 4. 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 5. Septic shock secondary to aspiration pneumonia and gastric outlet obstruction, status post duodenal stent placement. 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 plan As per current discussion with and son- they want to continue HD for a termite control representative we will wait for pt to be more stable before we decide for Permacath dialysis catheter will continue to follow up Consultation Date/Type/Reason Admit Date/Time Jun 30, 2016 at 15:42 Initial Consult Date 07/14/16 Type of Consultation: NEPHROLOGY Referring Provider: GAMALIEL HAIR MD 24 HR Interval Summary Free Text/Dictation remains intubated, Bp stable, s/p HD today Exam/Review of Systems Vital Signs Vitals Vital Signs Date Time Temp Pulse Resp B/P Pulse Ox O2 Delivery O2 Flow Rate FiO2 07/22/16 21:19 97 3.0 07/22/16 20:00 106 07/22/16 19:49 35 07/22/16 18:00 16 115/84 07/22/16 16:00 97.8 BIPAP Intake and Output 07/21/16 07/21/16 07/22/16 15:00 23:00 07:00 Intake Total 520 ml 470 ml 340 ml Output Total 20 ml 30 ml 75 ml Balance 500 ml 440 ml 265 ml Results Result Diagram: 07/22/16 0530 07/22/16 0530 Results 24 hrs Laboratory Tests Test 07/22/16 00:18 07/22/16 05:19 07/22/16 05:30 07/22/16 07:00 Bedside Glucose 146 167 White Blood Count 21.6 H Red Blood Count 3.74 L Hemoglobin 11.3 L Hematocrit 33.6 L Mean Corpuscular Volume 89.8 Mean Corpuscular Hemoglobin 30.2 Mean Corpuscular Hemoglobin Concent 33.6 Red Cell Distribution Width 18.6 H Platelet Count 74 L Mean Platelet Volume 11.8 H Neutrophils % 91.5 H Lymphocytes % 2.4 L Monocytes % 2.1 Eosinophils % 0.3 Basophils % 0.1 Nucleated Red Blood Cells % 0.1 H Neutrophils # 19.8 H Lymphocytes # 0.5 L Monocytes # 0.5 Eosinophils # 0.1 Basophils # 0.0 Nucleated Red Blood Cells # 0.0 Sodium Level 143 Potassium Level 4.4 Chloride Level 111 H Carbon Dioxide Level 20 L Anion Gap 16 Blood Urea Nitrogen 77 H Creatinine 3.25 H Glucose Level 150 Calcium Level 8.7 Phosphorus Level 5.3 H Magnesium Level 2.3 Blood Gas Specimen Source Blood arterial Arterial Blood Date Drawn 07/22/2016 7:40:57 AM Arterial Blood pH (Temp corrected) 7.370 Arterial Blood pCO2 (Temp correct) 34.6 L Arterial Blood pO2 (Temp corrected) 91.5 Arterial Blood HCO3 19.6 L Arterial Blood Base Excess -5.0 L Arterial Blood Oxygen Saturation 96.6 Og Test ACCEPTAB Arterial Blood Gas Puncture Site Right Radial Arterial Blood Carboxyhemoglobin 0.1 Arterial Blood Methemoglobin 0.4 Blood Gas A-a O2 Differential 190.0 H Oxyhemoglobin Percent 96.1 Total Hemoglobin 12.0 Blood Gas Temperature 37.0 Blood Gas Respiration Rate 16.0 Blood Gas Actual Respiration Rate 20 Blood Gas Modality MASK - BIPAP FiO2 45.0 Blood Gas IPAP/EPAP Ratio 15/5 Blood Gas Notified Whom JLD Blood Gas Notified Time 07/22/2016 8:03:38 AM Test 07/22/16 08:17 07/22/16 12:33 07/22/16 17:44 07/22/16 21:03 Bedside Glucose 128 147 138 143 Medications Medications Current Medications Ondansetron HCl (Zofran Inj) 4 mg Q6H PRN IV NAUSEA AND/OR VOMITING Last administered on 07/20/16 23:32; Admin Dose 4 MG; Start 06/30/16 at 16:30 Acetaminophen (Tylenol Tab) 650 mg Q6H PRN PO PAIN LEVEL 1-3 OR FEVER Last administered on 07/05/16 19:31; Admin Dose 650 MG; Start 06/30/16 at 16:30 Acetaminophen (Tylenol Supp) 650 mg Q6H PRN [place] PAIN LEVEL 1-3 OR FEVER; Start 06/30/16 at 16:30 Acetaminophen/ Hydrocodone Bitart ([place] (5/325)) 1 tab Q6H PRN PO MODERATE PAIN LEVEL 4-6 Last administered on 07/18/16 00:29; Admin Dose 1 TAB; Start at 16:30 Acetaminophen/ Hydrocodone Bitart ([place] (5/325)) 2 tab Q6H PRN PO SEVERE PAIN LEVEL 7-10 Last administered on 07/10/16 13:15; Admin Dose 2 TAB; Start at 16:30 Docusate Sodium (Colace) 100 mg Q12H PRN PO CONSTIPATION; Start 06/30/16 at 16: 30 Magnesium Hydroxide (Milk Of Mag) 30 ml DAILY PRN PO CONSTIPATION; Start at 16:30 Bisacodyl (Dulcolax Supp) 10 mg DAILY PRN [place] CONSTIPATION; Start 06/30/16 at 16 :30 Pantoprazole 40 mg 40 mg DAILY@06 IV Last administered on 07/22/16 05:24; Admin Dose 40 MG; Start 07/01/16 at 06:00 Erythromycin Lactobionate 250 mg/Sodium Chloride 100 ml @ 100 mls/hr Q6 IVPB Last administered on 07/22/16 17:45; Admin Dose 100 MLS/HR; Start 07/09/16 at 00 :00 Norepinephrine 16 mg/Dextrose 500 ml @ 1.87 mls/hr TITRATE IV Last administered on 07/13/16 13:43; Admin Dose 18.75 MLS/HR; Start 07/13/16 at 08: 00 Fluconazole/ Sodium Chloride (Diflucan 100 Mg/ NS (Pmx)) 50 ml @ 50 mls/hr Q24H IVPB Last administered on 07/22/16 11:31; Admin Dose 50 MLS/HR; Start at 11:00 Albuterol (Ventolin Hfa) 2 puff Q4H PRN INH SHORTNESS OF BREATH Last administered on 07/20/16 08:56; Admin Dose 2 PUFF; Start 07/14/16 at 22:00 Ipratropium [place] 4 puff 4 puff Q4H PRN INH SHORTNESS OF BREATH Last administered on 07/20/16 08:55; Admin Dose 4 PUFF; Start 07/14/16 at 22:00 Meropenem (Merrem 500 Mg/ 100 ml (Pmx)) 100 ml @ 200 mls/hr Q24H IVPB Last administered on 07/21/16 21:13; Admin Dose 200 MLS/HR; Start 07/16/16 at 21:00 Heparin Sodium (Porcine) (Heparin (5000 Units/0.5 ml)) 5,000 unit BID SC Last administered on 07/22/16 10:06; Admin Dose 5,000 UNIT; Start 07/18/16 at 21:00 Metoclopramide HCl (Reglan) 5 mg Q8 IV Last administered on 07/22/16 17:44; Admin Dose 5 MG; Start 07/18/16 at 22:00 Diagnostic Test (Pha) 1 ea 1 ea Q4 XX Last administered on 07/22/16 17:45; Admin Dose 1 EA; Start 07/19/16 at 13:00 Total Parenteral Nutrition 1,000 ml @ 30 mls/hr Q24H IV Last administered on 18:42; Admin Dose 30 MLS/HR; Start 07/19/16 at 14:00 Albumin Human 100 ml @ 0 mls/hr DAILY IV Last administered on 07/22/16 10:00; Admin Dose 100 MLS/HR; Start 07/21/16 at 09:00; Stop 07/24/16 at 08:59 Vancomycin HCl/ Sodium Chloride (Vancocin/NS) 150 ml @ 75 mls/hr Q96H IVPB Last administered on 07/20/16 16:30; Admin Dose 75 MLS/HR; Start 07/20/16 at 16 :00 Morphine Sulfate (morphine) 4 mg Q4H PRN IV SEVERE PAIN LEVEL 7-10; Start 07/22 at 16:30 SHANAE LEWIS MD July 22, 2016 22:45
[2016-07-23] VITALS (18 sets, daily range): BP systolic 11–143; BP diastolic 66–87; PULSE 97–120; RESP 15–28
[2016-07-23] MEDS: METOCLOPRAMIDE 10 MG INJ IV SCH ×4 (00:15→21:15)
[2016-07-23] MEDS: ERYTHROMYCIN LACTOBIONATE 250 MG in SOD CHLORIDE 0.9% 100 ML IVPB SCH ×4 (00:16→18:26)
[2016-07-23] MEDS: ACCU-CHEK XX SCH ×6 (00:17→20:10)
[2016-07-23] MEDS: morphine 4 MG/ML VIAL IV PRN ×3 (03:09→21:16)
[2016-07-23 05:09] LABS: ADD SCAN DIFF NO
[2016-07-23 05:11] LABS: ABNORMAL IP MESSAGE 1; BASOPHILS % 0.2 % (0.0-2.0); EOSINOPHILS % 0.2 % (0.0-7.0); HEMATOCRIT 32.6 % (42.0-52.0); LYMPHOCYTES # 0.6 10^3/ul (0.8-2.9); LYMPHOCYTES % 2.6 % (15.0-51.0); MEAN CORPUSCULAR HEMOGLOBIN 29.8 pg (29.0-33.0); MEAN CORPUSCULAR HGB CONC 33.7 g/dl (32.0-37.0); MEAN CORPUSCULAR VOLUME 88.3 fl (82.0-101.0); MEAN PLATELET VOLUME 12.2 fl (7.4-10.4); MONOCYTE # 0.5 10^3/ul (0.3-0.9); MONOCYTES % 2.2 % (0.0-11.0); NEUTROPHIL # 20.3 10^3/ul (1.6-7.5); NEUTROPHILS % 90.8 % (39.0-77.0); PLATELET COUNT 68 10^3/UL (140-415); RED BLOOD COUNT 3.69 10^6/ul (4.70-6.10); RED CELL DISTRIBUTION WIDTH 18.4 % (11.5-14.5); WHITE BLOOD COUNT 22.3 10^3/ul (4.8-10.8)
[2016-07-23 05:34] LABS: ALBUMIN 2.7 g/dl (3.3-4.9); ALBUMIN/GLOBULIN RATIO 1.08; BILIRUBIN,DIRECT 7.8 mg/dl (0.00-0.20); BILIRUBIN,INDIRECT 0.6 mg/dl (0-1.1); BILIRUBIN,TOTAL 8.4 mg/dl (0.2-1.3); CALCIUM 8.7 mg/dl (8.4-10.2); TOTAL PROTEIN 5.2 g/dl (6.1-8.1)
[2016-07-23] MEDS: PANTOPRAZOLE 40 MG INJ IV SCH (05:36)
[2016-07-23 05:46] LABS: CREATININE 2.78 mg/dl (0.61-1.24)
[2016-07-23] MEDS: ALBUMIN HUMAN 25% 100 ML IV SCH (08:31)
[2016-07-23] MEDS: HEPARIN 5,000 UNIT/0.5 ML VIAL SC SCH ×2 (08:35→20:21)
--- NOTE | 2016-07-23 09:42 | CONS ---
Date/Time of Note Date/Time of Note DATE: 07/23/16 TIME: 09:38 Assessment/Plan Assessment/Plan Chief Complaint/Hosp Course ID PROGRESS NOTE TOTAL ABX DAY # => Vanco IV, Merrem, Fluconazole 24H INTERVAL SUMMARY * Awake, alert, mild tachycardia, afebrile, NGT, doing OK, low flow O2 via NC without dyspnea, spouse in room - no c/o * 07/06 urine (+)Chelsy - Biliary fluid (+)Stenotrophomonas + Alpha Strep Viridans * Dark colored biliary drainage in bag * CXR 07/22/16: 1. Diffuse bilateral alveolar opacities may reflect pulmonary edema or multifocal pneumonia. No significant interval change. PHYSICAL EXAMINATION: GENERAL: VSS, NAD, no fevers HEENT: Unremarkable, except (+)NGT NECK: Supple CHEST: Equal chest rise bilaterally, without dyspnea on observation / Port-A- Cath present HEART: Pulse RRR ABDOMEN: (+)biliary drain EXTREMITIES: Warm,moves all extremities SKIN: Warm, dry ID ASSESSMENT: 60 yo M admitted with: 1. Metastatic urothelial cancer w/peritoneal carcinomatosis w/obstruction of the third part of the duodenum-> H/O self-expanding metallic stent * s/p attempted unsuccessful ERCP 07/03. * s/p PTC 07/05/16. * s/p EGD showing tumor growing over stent and causing obstruction 07/12/16 2. Biliary Sepsis present on admission with transient hypotension, lactic acidosis 4.0 tachycardia, leukocytosis => due to biliary obstruction * Leukocytosis persisting, no fevers => Patient also received IV steroids * Transaminitis due to biliary obstruction * Biliary fluid grew Stenotrophomonas + Alpha Strep Viridans * s/p (+)GNR bacteremia = E.Coli on admission=> Biliary source w/repeat BCx (-) 3. Aspiration pneumonia with hypoxic respiratory failure =>Stable on low flow supplemental O2 s/p intubation 07/12/16 and now extubation 07/20. 4. s/p UTI ->PSAR, then 07/06/16 Chelsy 5. Acute renal failure / CKD -> HD 6. Debility w/weight loss INVASIVES: *PIV, duodenal stent , Port-A-Cath, HD-Kale, NGT, FC, rectal device ABX ALLERGIES: KNDA CURRENT ABX: DAY # => Remains on Vanco IV + Merrem + Diflucan ID RECOMMENDATIONS: 1. Stenotrophomonas is only Intermediately Sensitive to Levaquin - while SENSITIVE to Bactrim. 2. Can renal function tolerate Bactrim IV? Patient now on HD - with poor prognosis long-term. * Change Vanco IV to Bactrim IV -- ABX taper * Continue Merrem for now to cover concern ASP HCAP and Hx of PSAR * Continue Diflucan for now -- at risk disseminate candidiasis w/TPN via PORT-A- Cath * . . Problems: Consultation Date/Type/Reason Admit Date/Time Jun 30, 2016 at 15:42 Initial Consult Date 06/30/16 Type of Consultation: ID Referring Provider: GAMALIEL HAIR MD Exam/Review of Systems Vital Signs Vitals Vital Signs Date Time Temp Pulse Resp B/P Pulse Ox O2 Delivery O2 Flow Rate FiO2 07/23/16 09:00 103 19 112/75 97 Nasal Cannula 3.0 07/23/16 08:00 97.4 07/22/16 19:49 35 Intake and Output 07/22/16 07/22/16 07/23/16 14:59 22:59 06:59 Intake Total 490 ml 662.5 ml 540 ml Output Total 0 ml 2830 ml 120 ml Balance 490 ml -2167.5 ml 420 ml Results Result Diagram: 07/23/16 0430 07/23/16 0430 Results 24 hrs Laboratory Tests Test 07/22/16 12:33 07/22/16 17:44 07/22/16 21:03 07/23/16 00:28 Bedside Glucose 147 138 143 152 Test 07/23/16 04:30 07/23/16 08:29 White Blood Count 22.3 H Red Blood Count 3.69 L Hemoglobin 11.0 L Hematocrit 32.6 L Mean Corpuscular Volume 88.3 Mean Corpuscular Hemoglobin 29.8 Mean Corpuscular Hemoglobin Concent 33.7 Red Cell Distribution Width 18.4 H Platelet Count 68 L Mean Platelet Volume 12.2 H Neutrophils % 90.8 H Lymphocytes % 2.6 L Monocytes % 2.2 Eosinophils % 0.2 Basophils % 0.2 Nucleated Red Blood Cells % 0.0 Neutrophils # 20.3 H Lymphocytes # 0.6 L Monocytes # 0.5 Eosinophils # 0.0 Basophils # 0.0 Nucleated Red Blood Cells # 0.0 Sodium Level 141 Potassium Level 4.0 Chloride Level 108 Carbon Dioxide Level 22 Anion Gap 15 Blood Urea Nitrogen 59 H Creatinine 2.78 H Glucose Level 160 Bedside Glucose 146 150 Calcium Level 8.7 Total Bilirubin 8.4 H Direct Bilirubin 7.80 H Indirect Bilirubin 0.6 Aspartate Amino Transf (AST/SGOT) 62 H Alanine Aminotransferase (ALT/SGPT) 54 Alkaline Phosphatase 153 H Total Protein 5.2 L Albumin 2.7 L Globulin 2.50 Albumin/Globulin Ratio 1.08 Medications Medications Current Medications Ondansetron HCl (Zofran Inj) 4 mg Q6H PRN IV NAUSEA AND/OR VOMITING Last administered on 07/20/16 23:32; Admin Dose 4 MG; Start 06/30/16 at 16:30 Acetaminophen (Tylenol Tab) 650 mg Q6H PRN PO PAIN LEVEL 1-3 OR FEVER Last administered on 07/05/16 19:31; Admin Dose 650 MG; Start 06/30/16 at 16:30 Acetaminophen (Tylenol Supp) 650 mg Q6H PRN [place] PAIN LEVEL 1-3 OR FEVER; Start 06/30/16 at 16:30 Acetaminophen/ Hydrocodone Bitart ([place] (5/325)) 1 tab Q6H PRN PO MODERATE PAIN LEVEL 4-6 Last administered on 07/18/16 00:29; Admin Dose 1 TAB; Start at 16:30 Acetaminophen/ Hydrocodone Bitart ([place] (5/325)) 2 tab Q6H PRN PO SEVERE PAIN LEVEL 7-10 Last administered on 07/10/16 13:15; Admin Dose 2 TAB; Start at 16:30 Docusate Sodium (Colace) 100 mg Q12H PRN PO CONSTIPATION; Start 06/30/16 at 16: 30 Magnesium Hydroxide (Milk Of Mag) 30 ml DAILY PRN PO CONSTIPATION; Start at 16:30 Bisacodyl (Dulcolax Supp) 10 mg DAILY PRN [place] CONSTIPATION; Start 06/30/16 at 16 :30 Pantoprazole 40 mg 40 mg DAILY@06 IV Last administered on 07/23/16 05:36; Admin Dose 40 MG; Start 07/01/16 at 06:00 Erythromycin Lactobionate 250 mg/Sodium Chloride 100 ml @ 100 mls/hr Q6 IVPB Last administered on 07/23/16 05:36; Admin Dose 100 MLS/HR; Start 07/09/16 at 00 :00 Norepinephrine 16 mg/Dextrose 500 ml @ 1.87 mls/hr TITRATE IV Last administered on 07/13/16 13:43; Admin Dose 18.75 MLS/HR; Start 07/13/16 at 08: 00 Fluconazole/ Sodium Chloride (Diflucan 100 Mg/ NS (Pmx)) 50 ml @ 50 mls/hr Q24H IVPB Last administered on 07/22/16 11:31; Admin Dose 50 MLS/HR; Start at 11:00 Albuterol (Ventolin Hfa) 2 puff Q4H PRN INH SHORTNESS OF BREATH Last administered on 07/20/16 08:56; Admin Dose 2 PUFF; Start 07/14/16 at 22:00 Ipratropium [place] 4 puff 4 puff Q4H PRN INH SHORTNESS OF BREATH Last administered on 07/20/16 08:55; Admin Dose 4 PUFF; Start 07/14/16 at 22:00 Meropenem (Merrem 500 Mg/ 100 ml (Pmx)) 100 ml @ 200 mls/hr Q24H IVPB Last administered on 07/22/16 21:00; Admin Dose 200 MLS/HR; Start 07/16/16 at 21:00 Heparin Sodium (Porcine) (Heparin (5000 Units/0.5 ml)) 5,000 unit BID SC Last administered on 07/23/16 08:35; Admin Dose 5,000 UNIT; Start 07/18/16 at 21:00 Metoclopramide HCl (Reglan) 5 mg Q8 IV Last administered on 07/23/16 05:36; Admin Dose 5 MG; Start 07/18/16 at 22:00 Diagnostic Test (Pha) 1 ea 1 ea Q4 XX Last administered on 07/23/16 08:39; Admin Dose 1 EA; Start 07/19/16 at 13:00 Total Parenteral Nutrition 1,000 ml @ 30 mls/hr Q24H IV Last administered on 18:42; Admin Dose 30 MLS/HR; Start 07/19/16 at 14:00 Albumin Human 100 ml @ 0 mls/hr DAILY IV Last administered on 07/23/16 08:31; Admin Dose 0 MLS/HR; Start 07/21/16 at 09:00; Stop 07/24/16 at 08:59 Vancomycin HCl/ Sodium Chloride (Vancocin/NS) 150 ml @ 75 mls/hr Q96H IVPB Last administered on 07/20/16 16:30; Admin Dose 75 MLS/HR; Start 07/20/16 at 16 :00 Morphine Sulfate (morphine) 4 mg Q4H PRN IV SEVERE PAIN LEVEL 7-10 Last administered on 07/23/16 03:09; Admin Dose 4 MG; Start 07/22/16 at 16:30 ALEXANDER LEON NP July 23, 2016 09:42
--- NOTE | 2016-07-23 10:43 | PN ---
Date/Time of Note Date/Time of Note DATE: 07/23/16 TIME: 10:35 Assessment/Plan VTE Prophylaxis VTE Prophylaxis Intervention: SCD's VTE Contraindication Reason: thrombocytopenia Lines/Catheters IV Catheter Type (from Nrsg): Peripheral IV Urinary Cath still in place: Yes Reason Cath still needed: other (indicate) (Severe debility) Assessment/Plan Assessment/Plan 60 year old male with metastatic uroepithelial cancer who had presented during the last admission with gastric outlet obstruction status post duodenal stent . Has since been diagnosed with metastatic urothelial cancer. Patient now readmitted with sepsis with abdominal pain. 1. Septic Shock 2/2 Aspiration PNA : Now off pressors, leukocytosis worsening with bandemia. * Biliary fluid cultures growing multiple organisms 2. Transaminitis with Hyperbilirubinemia 2nd biliary obstruction from metastatic cancer 3. Metastatic Urothelial cancer with possible carcinomatosis 4. Tumor Obstructed duodenum with gastric outlet obstruction s/p duodenal stent 06/02/16 and with new ERCP showing tumor eroding stent and completely obstructing lumen 5. Steatosis 6. Acute Respiratory Failure secondary to aspiration pneumonia: Extubated , now on BiPAP 7. Acute kidney injury secondary to acute tubular necrosis from septic shock and also contributing vancomycin requiring HD 8. S/p ecoli bacteremia and pseudomonas UTI 9. Chelsy UTI on fluconazole 10. TPN therapy PLAN: * Patient remains high reintubation risk. Will need continued aggressive diuresis/dialysis. 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 CRITICAL CARE TIME: >35 mins. Subjective 24 Hr Interval Summary Free Text/Dictation Patient is now off BiPAP, and is stable on nasal cannula. He is asking for something to drink. says he has not had anything to eat in about 2 weeks. He is still off pressors, and nursing reports no other concerns. Exam/Review of Systems Vital Signs Vitals Vital Signs Date Time Temp Pulse Resp B/P Pulse Ox O2 Delivery O2 Flow Rate FiO2 07/23/16 09:00 103 19 112/75 97 Nasal Cannula 3.0 07/23/16 08:00 97.4 07/22/16 19:49 35 Intake and Output 07/22/16 07/22/16 07/23/16 15:00 23:00 07:00 Intake Total 490 ml 662.5 ml 510 ml Output Total 0 ml 2830 ml 120 ml Balance 490 ml -2167.5 ml 390 ml Exam Constitutional: alert /seems slightly less lethargic / follows commands / responds to greetings ENMT: icteric ++ Respiratory: clear to auscultation / diminished significantly on the right with coarse crackles on the left Cardiovascular: regular rate and rhythm Gastrointestinal: soft, biliary drainage still in place with minimal greenish drain No distended his office dysphagia Musculoskeletal: Daniel edema pitting / diffuse anasarca Genitourinary - Male: No nl scrotum (severe scrotal edema) Results Result Diagram: 07/23/16 0430 07/23/16 0430 Results 24 hrs Laboratory Tests Test 07/22/16 12:33 07/22/16 17:44 07/22/16 21:03 07/23/16 00:28 Bedside Glucose 147 138 143 152 Test 07/23/16 04:30 07/23/16 08:29 White Blood Count 22.3 H Red Blood Count 3.69 L Hemoglobin 11.0 L Hematocrit 32.6 L Mean Corpuscular Volume 88.3 Mean Corpuscular Hemoglobin 29.8 Mean Corpuscular Hemoglobin Concent 33.7 Red Cell Distribution Width 18.4 H Platelet Count 68 L Mean Platelet Volume 12.2 H Neutrophils % 90.8 H Lymphocytes % 2.6 L Monocytes % 2.2 Eosinophils % 0.2 Basophils % 0.2 Nucleated Red Blood Cells % 0.0 Neutrophils # 20.3 H Lymphocytes # 0.6 L Monocytes # 0.5 Eosinophils # 0.0 Basophils # 0.0 Nucleated Red Blood Cells # 0.0 Sodium Level 141 Potassium Level 4.0 Chloride Level 108 Carbon Dioxide Level 22 Anion Gap 15 Blood Urea Nitrogen 59 H Creatinine 2.78 H Glucose Level 160 Bedside Glucose 146 150 Calcium Level 8.7 Total Bilirubin 8.4 H Direct Bilirubin 7.80 H Indirect Bilirubin 0.6 Aspartate Amino Transf (AST/SGOT) 62 H Alanine Aminotransferase (ALT/SGPT) 54 Alkaline Phosphatase 153 H Total Protein 5.2 L Albumin 2.7 L Globulin 2.50 Albumin/Globulin Ratio 1.08 Medications Medications Current Medications Ondansetron HCl (Zofran Inj) 4 mg Q6H PRN IV NAUSEA AND/OR VOMITING Last administered on 07/20/16 23:32; Admin Dose 4 MG; Start 06/30/16 at 16:30 Acetaminophen (Tylenol Tab) 650 mg Q6H PRN PO PAIN LEVEL 1-3 OR FEVER Last administered on 07/05/16 19:31; Admin Dose 650 MG; Start 06/30/16 at 16:30 Acetaminophen (Tylenol Supp) 650 mg Q6H PRN [place] PAIN LEVEL 1-3 OR FEVER; Start 06/30/16 at 16:30 Acetaminophen/ Hydrocodone Bitart ([place] (5/325)) 1 tab Q6H PRN PO MODERATE PAIN LEVEL 4-6 Last administered on 07/18/16 00:29; Admin Dose 1 TAB; Start at 16:30 Acetaminophen/ Hydrocodone Bitart ([place] (5/325)) 2 tab Q6H PRN PO SEVERE PAIN LEVEL 7-10 Last administered on 07/10/16 13:15; Admin Dose 2 TAB; Start at 16:30 Docusate Sodium (Colace) 100 mg Q12H PRN PO CONSTIPATION; Start 06/30/16 at 16: 30 Magnesium Hydroxide (Milk Of Mag) 30 ml DAILY PRN PO CONSTIPATION; Start at 16:30 Bisacodyl (Dulcolax Supp) 10 mg DAILY PRN [place] CONSTIPATION; Start 06/30/16 at 16 :30 Pantoprazole 40 mg 40 mg DAILY@06 IV Last administered on 07/23/16 05:36; Admin Dose 40 MG; Start 07/01/16 at 06:00 Erythromycin Lactobionate 250 mg/Sodium Chloride 100 ml @ 100 mls/hr Q6 IVPB Last administered on 07/23/16 05:36; Admin Dose 100 MLS/HR; Start 07/09/16 at 00 :00 Norepinephrine 16 mg/Dextrose 500 ml @ 1.87 mls/hr TITRATE IV Last administered on 07/13/16 13:43; Admin Dose 18.75 MLS/HR; Start 07/13/16 at 08: 00 Fluconazole/ Sodium Chloride (Diflucan 100 Mg/ NS (Pmx)) 50 ml @ 50 mls/hr Q24H IVPB Last administered on 07/22/16 11:31; Admin Dose 50 MLS/HR; Start at 11:00 Albuterol (Ventolin Hfa) 2 puff Q4H PRN INH SHORTNESS OF BREATH Last administered on 07/20/16 08:56; Admin Dose 2 PUFF; Start 07/14/16 at 22:00 Ipratropium [place] 4 puff 4 puff Q4H PRN INH SHORTNESS OF BREATH Last administered on 07/20/16 08:55; Admin Dose 4 PUFF; Start 07/14/16 at 22:00 Meropenem (Merrem 500 Mg/ 100 ml (Pmx)) 100 ml @ 200 mls/hr Q24H IVPB Last administered on 07/22/16 21:00; Admin Dose 200 MLS/HR; Start 07/16/16 at 21:00 Heparin Sodium (Porcine) (Heparin (5000 Units/0.5 ml)) 5,000 unit BID SC Last administered on 07/23/16 08:35; Admin Dose 5,000 UNIT; Start 07/18/16 at 21:00 Metoclopramide HCl (Reglan) 5 mg Q8 IV Last administered on 07/23/16 05:36; Admin Dose 5 MG; Start 07/18/16 at 22:00 Diagnostic Test (Pha) 1 ea 1 ea Q4 XX Last administered on 07/23/16 08:39; Admin Dose 1 EA; Start 07/19/16 at 13:00 Total Parenteral Nutrition 1,000 ml @ 30 mls/hr Q24H IV Last administered on 18:42; Admin Dose 30 MLS/HR; Start 07/19/16 at 14:00 Albumin Human (Albumin Human 25%) 100 ml @ 0 mls/hr DAILY IV Last administered on 07/23/16 08:31; Admin Dose 0 MLS/HR; Start 07/21/16 at 09:00; Stop 07/24/16 at 08:59 Morphine Sulfate 4 mg 4 mg Q4H PRN IV SEVERE PAIN LEVEL 7-10 Last administered on 07/23/16t 03:09; Admin Dose 4 MG; Start 07/22/16 at 16:30 Trimethoprim/ Sulfamethoxazole/ Dextrose (Bactrim/D5W) 260 ml @ 173.333 mls/hr Q8 IVPB ; Start 07/23/16 at 14:00; Status UNV Procedures Procedures PROCEDURE: XR Chest. CLINICAL INDICATION: Pulmonary edema TECHNIQUE: A single AP view of the chest was obtained. COMPARISON: Chest x-ray dated 07/21/2016 FINDINGS: There is a right chest Port-A-Cath with tip near the cavoatrial junction. There is a left internal jugular central venous catheter with tip the upper right atrium. Lung volumes are low. There are diffuse bilateral alveolar opacities. No pleural effusion or pneumothorax is seen. The cardiomediastinal silhouette is within normal limits for size. The osseous structures are unremarkable. IMPRESSION: 1. Diffuse bilateral alveolar opacities may reflect pulmonary edema or multifocal pneumonia. No significant interval change. 2. Low lung volumes. 3. Tubes and lines, as described above. RPTAT: HH .Carolyn Lew MD, MD Date Time Electronically viewed and signed by .Carolyn Lew MD, on 07/22/2016 07 :04 .G/ CC: [address] [place] M. July 23, 2016 10:43
[2016-07-23] MEDS: FLUCONAZOLE 100 MG/NS (PMX) 50 ML IVPB SCH (11:31)
--- NOTE | 2016-07-23 11:56 | PN ---
DATE: 07/23/2016 PALLIATIVE CARE PROGRESS NOTE I had an extensive conversation with the patient's yesterday, with nursing staff in attendance and through an translator and interpreter. The patient's has decided that she does not want him to be reintuba antionette and does not want cardiopulmonary resuscitation. Today it looks like he is better. He is not c omplaining of pain. My plan is to continue to support her and if this gentleman suddenly deteriorat es in the hospital, will change to comfort measures, and she is aware of this and accepts this. OTHER ISSUES: Her hopes are that he does not suffer at the end of life. Acceptable quality of life is the hope that he does not have moribund end of life, once again. Her fears have been addressed, culture issues have been addressed with her too, and her concerns. IMPRESSION: Continue to support her at this time in addition if there are other issues that occur e specially during this hospitalization. ESTIMATED PROGNOSIS: I have spoken to the patient's , approximately a month, especially since he has had 1 bout of sepsis syndrome and respiratory failure requiring intubation and successful extub ation and requiring reintubation once again. There are no pain management symptoms or syndromes at this time that should be addressed or ethical issues since the patient's had decided to change his code status to DO NOT RESUSCITATE. Will continue to follow and support her very closely. Dictated By: AMANUEL BRAMBILA MD, LP/ANN MARIE Conf#: [id number] DID#: [id number]
--- NOTE | 2016-07-23 12:09 | CONS ---
Date/Time of Note Date/Time of Note DATE: 07/23/16 TIME: 12:06 Assessment/Plan Assessment/Plan Additional Assessment/Plan Assessment recommendations; 1. Patient admitted with gastric outlet obstruction then developed severe aspiration pneumonia involving the left lung after EGD. 2. Renal failure, on hemodialysis. 3. Persistent bilateral infiltrative changes seen on chest x-ray with persistent leukocytosis, currently on appropriate antibiotic regimen. 4. Metastatic uroepithelial cancer. 5. Significant overall improvement in respiratory status. 6. Biliary obstruction, causing persistent icterus. Obtain a chest x-ray. Patient can be transferred to medical floor. Patient's family has appropriately made him a DNR. Prognosis remains poor. Consultation Date/Type/Reason Admit Date/Time Jun 30, 2016 at 15:42 Initial Consult Date 07/12/16 Type of Consultation: Pulmonary/critical care Referring Provider: GAMALIEL HAIR MD 24 HR Interval Summary Free Text/Dictation Patient condition is improving. Has been off BiPAP now. Remains awake alert. Denies any shortness of breath, abdominal pain, nausea vomiting. General exam; elderly male, awake alert currently in no distress. Exam/Review of Systems Vital Signs Vitals Vital Signs Date Time Temp Pulse Resp B/P Pulse Ox O2 Delivery O2 Flow Rate FiO2 07/23/16 09:00 103 19 112/75 97 Nasal Cannula 3.0 07/23/16 08:00 97.4 07/22/16 19:49 35 Intake and Output 07/22/16 07/22/16 07/23/16 15:00 23:00 07:00 Intake Total 490 ml 662.5 ml 510 ml Output Total 0 ml 2830 ml 120 ml Balance 490 ml -2167.5 ml 390 ml Exam HEENT exam is; supple neck, no JVD. No lymphadenopathy. Midline trachea. No thyromegaly. Pupils are small bilaterally. Patient is icteric. Has fair dentition. Chest examination; diminished but clear vessel. S1-S2 audible, no murmurs. Regular rhythm. Abdomen examination; soft, protuberant, bowel sounds audible. There is mild epigastric tenderness. Extremity examination; 2+ pitting edema lower extremities bilaterally. 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 Results Result Diagram: 07/23/16 0430 07/23/16 0430 Results 24 hrs Laboratory Tests Test 07/22/16 12:33 07/22/16 17:44 07/22/16 21:03 07/23/16 00:28 Bedside Glucose 147 138 143 152 Test 07/23/16 04:30 07/23/16 08:29 White Blood Count 22.3 H Red Blood Count 3.69 L Hemoglobin 11.0 L Hematocrit 32.6 L Mean Corpuscular Volume 88.3 Mean Corpuscular Hemoglobin 29.8 Mean Corpuscular Hemoglobin Concent 33.7 Red Cell Distribution Width 18.4 H Platelet Count 68 L Mean Platelet Volume 12.2 H Neutrophils % 90.8 H Lymphocytes % 2.6 L Monocytes % 2.2 Eosinophils % 0.2 Basophils % 0.2 Nucleated Red Blood Cells % 0.0 Neutrophils # 20.3 H Lymphocytes # 0.6 L Monocytes # 0.5 Eosinophils # 0.0 Basophils # 0.0 Nucleated Red Blood Cells # 0.0 Sodium Level 141 Potassium Level 4.0 Chloride Level 108 Carbon Dioxide Level 22 Anion Gap 15 Blood Urea Nitrogen 59 H Creatinine 2.78 H Glucose Level 160 Bedside Glucose 146 150 Calcium Level 8.7 Total Bilirubin 8.4 H Direct Bilirubin 7.80 H Indirect Bilirubin 0.6 Aspartate Amino Transf (AST/SGOT) 62 H Alanine Aminotransferase (ALT/SGPT) 54 Alkaline Phosphatase 153 H Total Protein 5.2 L Albumin 2.7 L Globulin 2.50 Albumin/Globulin Ratio 1.08 Medications Medications Current Medications Ondansetron HCl (Zofran Inj) 4 mg Q6H PRN IV NAUSEA AND/OR VOMITING Last administered on 07/20/16 23:32; Admin Dose 4 MG; Start 06/30/16 at 16:30 Acetaminophen (Tylenol Tab) 650 mg Q6H PRN PO PAIN LEVEL 1-3 OR FEVER Last administered on 07/05/16 19:31; Admin Dose 650 MG; Start 06/30/16 at 16:30 Acetaminophen (Tylenol Supp) 650 mg Q6H PRN OR PAIN LEVEL 1-3 OR FEVER; Start 06/30/16 at 16:30 Acetaminophen/ Hydrocodone Bitart ([place] (5/325)) 1 tab Q6H PRN PO MODERATE PAIN LEVEL 4-6 Last administered on 07/18/16 00:29; Admin Dose 1 TAB; Start at 16:30 Acetaminophen/ Hydrocodone Bitart ([place] (5/325)) 2 tab Q6H PRN PO SEVERE PAIN LEVEL 7-10 Last administered on 07/10/16 13:15; Admin Dose 2 TAB; Start at 16:30 Docusate Sodium (Colace) 100 mg Q12H PRN PO CONSTIPATION; Start 06/30/16 at 16: 30 Magnesium Hydroxide (Milk Of Mag) 30 ml DAILY PRN PO CONSTIPATION; Start at 16:30 Bisacodyl (Dulcolax Supp) 10 mg DAILY PRN OR CONSTIPATION; Start 06/30/16 at 16 :30 Pantoprazole 40 mg 40 mg DAILY@06 IV Last administered on 07/23/16 05:36; Admin Dose 40 MG; Start 07/01/16 at 06:00 Erythromycin Lactobionate 250 mg/Sodium Chloride 100 ml @ 100 mls/hr Q6 IVPB Last administered on 07/23/16 05:36; Admin Dose 100 MLS/HR; Start 07/09/16 at 00 :00 Fluconazole/ Sodium Chloride (Diflucan 100 Mg/ NS (Pmx)) 50 ml @ 50 mls/hr Q24H IVPB Last administered on 07/23/16 11:31; Admin Dose 50 MLS/HR; Start at 11:00 Albuterol (Ventolin Hfa) 2 puff Q4H PRN INH SHORTNESS OF BREATH Last administered on 07/20/16 08:56; Admin Dose 2 PUFF; Start 07/14/16 at 22:00 Ipratropium [place] 4 puff 4 puff Q4H PRN INH SHORTNESS OF BREATH Last administered on 07/20/16 08:55; Admin Dose 4 PUFF; Start 07/14/16 at 22:00 Meropenem (Merrem 500 Mg/ 100 ml (Pmx)) 100 ml @ 200 mls/hr Q24H IVPB Last administered on 07/22/16 21:00; Admin Dose 200 MLS/HR; Start 07/16/16 at 21:00 Heparin Sodium (Porcine) (Heparin (5000 Units/0.5 ml)) 5,000 unit BID SC Last administered on 07/23/16 08:35; Admin Dose 5,000 UNIT; Start 07/18/16 at 21:00 Metoclopramide HCl (Reglan) 5 mg Q8 IV Last administered on 07/23/16 05:36; Admin Dose 5 MG; Start 07/18/16 at 22:00 Diagnostic Test (Pha) 1 ea 1 ea Q4 XX Last administered on 07/23/16 08:39; Admin Dose 1 EA; Start 07/19/16 at 13:00 Total Parenteral Nutrition 1,000 ml @ 30 mls/hr Q24H IV Last administered on 18:42; Admin Dose 30 MLS/HR; Start 07/19/16 at 14:00 Albumin Human (Albumin Human 25%) 100 ml @ 0 mls/hr DAILY IV Last administered on 07/23/16 08:31; Admin Dose 0 MLS/HR; Start 07/21/16 at 09:00; Stop 07/24/16 at 08:59 Morphine Sulfate 4 mg 4 mg Q4H PRN IV SEVERE PAIN LEVEL 7-10 Last administered on 07/23/16 03:09; Admin Dose 4 MG; Start 07/22/16 at 16:30 Trimethoprim/ Sulfamethoxazole/ Dextrose (Bactrim/D5W) 260 ml @ 173.333 mls/hr Q8 IVPB ; Start 07/23/16 at 14:[address] July 23, 2016 12:09
--- NOTE | 2016-07-23 12:55 | CONS ---
Date/Time of Note Date/Time of Note DATE: 07/23/16 TIME: 12:47 Assessment/Plan Assessment/Plan Additional Assessment/Plan 1. Acute fluid overload with anasarca started on HD during this admission 2. Acute kidney injury secondary to acute tubular necrosis from septic shock and also contributing vancomycin.did not improve, started on HD during this admission 3. Metabolic acidosis secondary to acute renal failure. 4. 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 5. Septic shock secondary to aspiration pneumonia and gastric outlet obstruction, status post duodenal stent placement. PLAN: s/p Extubation, s/p HD yesterday depending on H &O plan and Discussion with palliative care we will decide for long-term HD plan As per current discussion with and son- they want to continue HD for a long-term we will wait for pt to be more stable before we decide for Permacath dialysis catheter will continue to follow up Consultation Date/Type/Reason Admit Date/Time Jun 30, 2016 at 15:42 Initial Consult Date 07/14/16 Type of Consultation: NEPHROLOGY Referring Provider: GAMALIEL HAIR MD 24 HR Interval Summary Free Text/Dictation transferred to med/surge floor Exam/Review of Systems Vital Signs Vitals Vital Signs Date Time Temp Pulse Resp B/P Pulse Ox O2 Delivery O2 Flow Rate FiO2 07/23/16 09:00 103 19 112/75 97 Nasal Cannula 3.0 07/23/16 08:00 97.4 07/22/16 19:49 35 Intake and Output 07/22/16 07/22/16 07/23/16 15:00 23:00 07:00 Intake Total 490 ml 662.5 ml 510 ml Output Total 0 ml 2830 ml 120 ml Balance 490 ml -2167.5 ml 390 ml Exam Constitutional: alert, awake Respiratory: bibasilar crackles , no wheezing Cardiovascular: regular rate and rhythm Gastrointestinal: soft, No distended Musculoskeletal: nl extremities to inspection + deja HD catheter Results Result Diagram: 07/23/16 0430 07/23/16 0430 Results 24 hrs Laboratory Tests Test 07/22/16 17:44 07/22/16 21:03 07/23/16 00:28 07/23/16 04:30 Bedside Glucose 138 143 152 146 White Blood Count 22.3 H Red Blood Count 3.69 L Hemoglobin 11.0 L Hematocrit 32.6 L Mean Corpuscular Volume 88.3 Mean Corpuscular Hemoglobin 29.8 Mean Corpuscular Hemoglobin Concent 33.7 Red Cell Distribution Width 18.4 H Platelet Count 68 L Mean Platelet Volume 12.2 H Neutrophils % 90.8 H Lymphocytes % 2.6 L Monocytes % 2.2 Eosinophils % 0.2 Basophils % 0.2 Nucleated Red Blood Cells % 0.0 Neutrophils # 20.3 H Lymphocytes # 0.6 L Monocytes # 0.5 Eosinophils # 0.0 Basophils # 0.0 Nucleated Red Blood Cells # 0.0 Sodium Level 141 Potassium Level 4.0 Chloride Level 108 Carbon Dioxide Level 22 Anion Gap 15 Blood Urea Nitrogen 59 H Creatinine 2.78 H Glucose Level 160 Calcium Level 8.7 Total Bilirubin 8.4 H Direct Bilirubin 7.80 H Indirect Bilirubin 0.6 Aspartate Amino Transf (AST/SGOT) 62 H Alanine Aminotransferase (ALT/SGPT) 54 Alkaline Phosphatase 153 H Total Protein 5.2 L Albumin 2.7 L Globulin 2.50 Albumin/Globulin Ratio 1.08 Test 07/23/16 08:29 Bedside Glucose 150 Medications Medications Current Medications Ondansetron HCl (Zofran Inj) 4 mg Q6H PRN IV NAUSEA AND/OR VOMITING Last administered on 07/20/16 23:32; Admin Dose 4 MG; Start 06/30/16 at 16:30 Acetaminophen (Tylenol Tab) 650 mg Q6H PRN PO PAIN LEVEL 1-3 OR FEVER Last administered on 07/05/16 19:31; Admin Dose 650 MG; Start 06/30/16 at 16:30 Acetaminophen (Tylenol Supp) 650 mg Q6H PRN [place] PAIN LEVEL 1-3 OR FEVER; Start 06/30/16 at 16:30 Acetaminophen/ Hydrocodone Bitart ([place] (5/325)) 1 tab Q6H PRN PO MODERATE PAIN LEVEL 4-6 Last administered on 07/18/16 00:29; Admin Dose 1 TAB; Start at 16:30 Acetaminophen/ Hydrocodone Bitart ([place] (5/325)) 2 tab Q6H PRN PO SEVERE PAIN LEVEL 7-10 Last administered on 07/10/16 13:15; Admin Dose 2 TAB; Start at 16:30 Docusate Sodium (Colace) 100 mg Q12H PRN PO CONSTIPATION; Start 06/30/16 at 16: 30 Magnesium Hydroxide (Milk Of Mag) 30 ml DAILY PRN PO CONSTIPATION; Start at 16:30 Bisacodyl (Dulcolax Supp) 10 mg DAILY PRN [place] CONSTIPATION; Start 06/30/16 at 16 :30 Pantoprazole 40 mg 40 mg DAILY@06 IV Last administered on 07/23/16 05:36; Admin Dose 40 MG; Start 07/01/16 at 06:00 Erythromycin Lactobionate/ Sodium Chloride (Erythromycin Lactobionate/NS) 100 ml @ 100 mls/hr Q6 IVPB Last administered on 07/23/16 05:36; Admin Dose 100 MLS/HR; Start 07/09/16 at 00:00 Albuterol (Ventolin Hfa) 2 puff Q4H PRN INH SHORTNESS OF BREATH Last administered on 07/20/16 08:56; Admin Dose 2 PUFF; Start 07/14/16 at 22:00 Ipratropium [place] 4 puff 4 puff Q4H PRN INH SHORTNESS OF BREATH Last administered on 07/20/16 08:55; Admin Dose 4 PUFF; Start 07/14/16 at 22:00 Meropenem (Merrem 500 Mg/ 100 ml (Pmx)) 100 ml @ 200 mls/hr Q24H IVPB Last administered on 07/22/16 21:00; Admin Dose 200 MLS/HR; Start 07/16/16 at 21:00 Heparin Sodium (Porcine) (Heparin (5000 Units/0.5 ml)) 5,000 unit BID SC Last administered on 07/23/16 08:35; Admin Dose 5,000 UNIT; Start 07/18/16 at 21:00 Metoclopramide HCl (Reglan) 5 mg Q8 IV Last administered on 07/23/16 05:36; Admin Dose 5 MG; Start 07/18/16 at 22:00 Diagnostic Test (Pha) 1 ea 1 ea Q4 XX Last administered on 07/23/16 08:39; Admin Dose 1 EA; Start 07/19/16 at 13:00 Total Parenteral Nutrition 1,000 ml @ 30 mls/hr Q24H IV Last administered on 18:42; Admin Dose 30 MLS/HR; Start 07/19/16 at 14:00 Albumin Human (Albumin Human 25%) 100 ml @ 0 mls/hr DAILY IV Last administered on 07/23/16 08:31; Admin Dose 0 MLS/HR; Start 07/21/16 at 09:00; Stop 07/24/16 at 08:59 Morphine Sulfate 4 mg 4 mg Q4H PRN IV SEVERE PAIN LEVEL 7-10 Last administered on 07/23/16 03:09; Admin Dose 4 MG; Start 07/22/16 at 16:30 Trimethoprim/ Sulfamethoxazole/ Dextrose (Bactrim/D5W) 260 ml @ 173.333 mls/hr Q8 IVPB ; Start 07/23/16 at 14:00 SHANAE LEWIS MD July 23, 2016 12:55
--- NOTE | 2016-07-23 13:43 | PN ---
DATE: SUBJECTIVE: No events overnight. The patient is on BiPAP, awake, in no distress. He is tachycardi c. No fevers. WBC today is 21.6, platelets 74, neutrophils 91.5, BUN 77, creatinine 3.25. INDWELLING: Right chest Port-A-Cath, left IJ Kale, Langley catheter, left intraabdominal drainage catheter. ANTIMICROBIALS: Patient had gastric fluid cultures sent yesterday, growing gram-negative rods and a lpha hemolytic strep species. ANTIMICROBIALS: The patient is on: 1. Vancomycin. 2. Fluconazole. 3. Meropenem. PHYSICAL EXAMINATION: GENERAL: This is a chronically ill-appearing, fragile elderly man, who is in no distress. HEENT: Head atraumatic, normocephalic. Sclerae are anicteric. Buccal mucosa is dry. NECK: Supple. CHEST: Rise symmetrical. Breath sounds diminished. HEART: S1, S2. ABDOMEN: Soft, bowel tones present. EXTREMITIES: No cyanosis. ASSESSMENT: 1. Persistent sepsis secondary to intraabdominal source with some aspirated gastric fluid, cultures growing gram-negative rods and alpha hemolytic strep species. 2. Acute respiratory failure. 3. Pneumonia. 4. Escherichia coli bacteremia on admission, with repeat blood cultures negative. 5. Biliary obstruction status post unsuccessful ERCP on 07/03/2016, status post PTC on 07/05/2016, with fluid cultures growing multiple bacteria. 6. Status post urinary tract infection. 7. Acute renal failure, hemodialysis dependent. 8. Diabetes with diabetic gastroparesis. 9. Metastatic urothelial cancer. PLAN: The patient is now DNR status, he is doing poorly; prognosis very poor. He is covered with b road spectrum antibiotics. He is followed by multiple consultants, pending final cultures, pending family decision regarding final plans of care. Dictated By: MARIELA ROBIN MECHANICAL TECHNICAL SERVICE SPECIALIST for PENNY BARRIGA/ANN MARIE Conf#: [id number] DID#: [id number]
[2016-07-23] MEDS: TRIMETHOPRIM/SULFAMETHOXAZOLE 10 ML in DEXTROSE 5% 250 ML IVPB SCH ×2 (15:10→23:23)
--- NOTE | 2016-07-23 15:17 | RADRPT ---
PROCEDURE: Transhepatic cholangiogram. CLINICAL INDICATION: Biliary obstruction. TECHNIQUE: The images were obtained in the intensive care unit with portable equipment. 2 images were obtained with the first image obtained after injection of 10 ml of Omnipaque-300 into the bilia ry drainage catheter and the second image obtained following injection of add additional 10 ml for a total of 20 ml of Omnipaque-300 into the biliary drainage catheter. COMPARISON: Biliary drainage procedure dated 07/11/2016. FINDINGS: Images demonstrate internal external biliary drainage catheter in satisfactory and unchanged positio n. The proximal side holes artery in the common bile duct and the distal side holes are present tra versing the stent in the second and third part of the duodenum. Contrast enters the biliary system. No stones are visualized. However, there is severe obstruction of the distal common bile duct, li jen due to the tumor in the duodenum. Only very minimal contrast enters the distal portion of the catheter within the duodenum. Minimal contrast is seen in the duodenum distal to the drainage apolinar ter. IMPRESSION: 1. The biliary drainage catheter remains in satisfactory position. 2. Severe obstruction of the distal common bile duct due to the duodenal mass. 3. As seen previously, there is marked narrowing of the duodenum despite the presence of the metall ic stent. RPTAT: QQ .Naldo Oneal MD, Date Time Electronically viewed and signed by .Naldo Oneal MD, MD on 07/23/2016 15:17 .R/
--- NOTE | 2016-07-23 17:41 | RADRPT ---
PROCEDURE: XR Chest. CLINICAL INDICATION: Shortness of breath. TECHNIQUE: Single frontal view. COMPARISON: 07/22/2016. FINDINGS: A tunneled right internal jugular vein implanted port central venous catheter and left internal jugu lar vein temporary dialysis catheter remain in satisfactory position. The heart is enlarged. There is bilateral pulmonary airspace and interstitial disease consistent with pulmonary edema with left side worse than right side. Superimposed pneumonia cannot be excluded. There are low lung volumes. There is no pleural effusion. There is no pneumothorax. IMPRESSION: 1. No significant change from 07/22/2016. RPTAT: QQ .Naldo Oneal MD, MD Date Time Electronically viewed and signed by .Naldo Oneal MD, on 07/23/2016 17:40 .R/
[2016-07-23] MEDS: TPN 1,000 ML IV SCH (18:27)
--- NOTE | 2016-07-23 18:53 | CONS ---
Date/Time of Note Date/Time of Note DATE: 07/23/16 TIME: 18:49 Assessment/Plan Assessment/Plan Chief Complaint/Hosp Course 60 year old male with metastatic urothelial cancer who had presented during the last admission with gastric outlet obstruction status post duodenal stent . Has since been diagnosed with metastatic urothelial cancer. Patient now readmitted with sepsis with abdominal pain. He is currently in critical condition, intubated in the ICU # metastatic urothelial cancer - CT A/P demonstrates infiltrative neoplasm involving the cecum, ascending colon and hepatic flexure with extension of tumor to the serosa involving the lateral wall of the duodenum. This has advanced as compared to 05/27/2016. - I had planned to start gemcitabine 1000 mg/m2 D1, 8 and carboplatin AUC 4.5 D1 however needed to wait till bacteremia adequately treated and now patient with left lung aspiration pneumonia. Patient extubated 07/20/16. Given rapidly growing tumor, would want to start chemo ISSA when patient more stable, more ambulatory, infection adequately controlled and thrombocytopenia and hyperbilirubinemia improved. Would then need to start gemcitabine/carboplatin with dose adjustments depending on renal and hepatic function. Would use 50% of dose of carboplatin in ESRD on HD; would advise HD 6-12 hours after gemcitabine given with caution due to hyperbilirubinemia with initial dose 800 mg/m2. - discussed with Dr. De, duodenal stent obstructed by tumor, status post new internal biliary catheter 07/11/16. Plan for new duodenal stent when more stable. - Dr. Nolan to arrange for POLST form to be filled out - Hg has improved after blood transfusion and is now > 10 # Leukocytosis and thrombocytopenia, etiology unclear - WBC now 22.3 up from 14.4, Plt down from 106 to 69 to 68. DIC panel not consistent with DIC. Concerning for sepsis. - Appreciate ID recs. - Peripheral smear reviewed by pathology, showed increased wbcs, left shifted, bands, no blasts, no dysplastic features, no schistocytes, no leukoerythroblastic process # Elevated D-dimer > 10,000. Upper and lower extremity dopplers negative for DVT 07/21/16. # E. coli bacteremia - with sepsis secondary to biliary obstruction s/p attempted unsuccessful ERCP 07/03, s/p external percutaneous biliary drainage 07/05 - Last blood cultures were clear from 07/05/16 - will hold on removing the port for now. If ID feels it is necessary to remove and if bacteremia does not clear, will remove at that time # Biliary obstruction - s/p percutaneous biliary drain and status post new biliary catheter 07/11/16 - status post EGD that demonstrated gastric outlet obstruction with tumor growing over stent and almost complete obstructing lumen. - Now Bilirubin up to 7.8, plan for another biliary stent when more stable per GI. Cholangiogram 07/22/16 demonstrated 1. The biliary drainage catheter remains in satisfactory position. 2. Severe obstruction of the distal common bile duct due to the duodenal mass. 3. As seen previously, there is marked narrowing of the duodenum despite the presence of the metallic stent. - US Abdomen 07/19/16 demonstrated mild fatty infiltration of liver, new moderate ascites, mildly dilated CBD, 8 mm, decreased - Biliary fluid culture +stenotrophomonas, strep viridans, appreciate ID recs, patient on bactrim in addition to other broad spectrum antibiotics # Diabetic Gastroparesis - cont reglan; erythromycin added as prokinetic agent per GI # CHARITY - Acute kidney injury secondary to acute tubular necrosis from septic shock and also contributing vancomycin - cont HD per renal Problems: Consultation Date/Type/Reason Admit Date/Time Jun 30, 2016 at 15:42 Initial Consult Date 06/30/16 Type of Consultation: Oncology Referring Provider: GAMALIEL HAIR MD 24 HR Interval Summary Free Text/Dictation Patient transferred out of ICU, still has some labored breathing. Patient very weak, has not gotten out of bed. Exam/Review of Systems Vital Signs Vitals Vital Signs Date Time Temp Pulse Resp B/P Pulse Ox O2 Delivery O2 Flow Rate FiO2 07/23/16 16:46 97 3.0 32 07/23/16 12:40 98.1 111 18 130/76 07/23/16 12:30 Nasal Cannula Intake and Output 07/22/16 07/22/16 07/23/16 15:00 23:00 07:00 Intake Total 490 ml 662.5 ml 510 ml Output Total 0 ml 2830 ml 120 ml Balance 490 ml -2167.5 ml 390 ml Exam Constitutional: alert, awake Respiratory: bibasilar crackles , no wheezing, labored breathing Cardiovascular: regular rate and rhythm Gastrointestinal: soft, No distended Musculoskeletal: nl extremities to inspection + deja HD catheter Results Result Diagram: 07/23/16 0430 07/23/16 0430 Results 24 hrs Laboratory Tests Test 07/22/16 21:03 07/23/16 00:28 07/23/16 04:30 07/23/16 08:29 Bedside Glucose 143 152 146 150 White Blood Count 22.3 H Red Blood Count 3.69 L Hemoglobin 11.0 L Hematocrit 32.6 L Mean Corpuscular Volume 88.3 Mean Corpuscular Hemoglobin 29.8 Mean Corpuscular Hemoglobin Concent 33.7 Red Cell Distribution Width 18.4 H Platelet Count 68 L Mean Platelet Volume 12.2 H Neutrophils % 90.8 H Lymphocytes % 2.6 L Monocytes % 2.2 Eosinophils % 0.2 Basophils % 0.2 Nucleated Red Blood Cells % 0.0 Neutrophils # 20.3 H Lymphocytes # 0.6 L Monocytes # 0.5 Eosinophils # 0.0 Basophils # 0.0 Nucleated Red Blood Cells # 0.0 Sodium Level 141 Potassium Level 4.0 Chloride Level 108 Carbon Dioxide Level 22 Anion Gap 15 Blood Urea Nitrogen 59 H Creatinine 2.78 H Glucose Level 160 Calcium Level 8.7 Total Bilirubin 8.4 H Direct Bilirubin 7.80 H Indirect Bilirubin 0.6 Aspartate Amino Transf (AST/SGOT) 62 H Alanine Aminotransferase (ALT/SGPT) 54 Alkaline Phosphatase 153 H Total Protein 5.2 L Albumin 2.7 L Globulin 2.50 Albumin/Globulin Ratio 1.08 Test 07/23/16 13:24 07/23/16 16:59 Bedside Glucose 146 168 Medications Medications Current Medications Ondansetron HCl (Zofran Inj) 4 mg Q6H PRN IV NAUSEA AND/OR VOMITING Last administered on 07/20/16 23:32; Admin Dose 4 MG; Start 06/30/16 at 16:30 Acetaminophen (Tylenol Tab) 650 mg Q6H PRN PO PAIN LEVEL 1-3 OR FEVER Last administered on 07/05/16 19:31; Admin Dose 650 MG; Start 06/30/16 at 16:30 Acetaminophen (Tylenol Supp) 650 mg Q6H PRN [place] PAIN LEVEL 1-3 OR FEVER; Start 06/30/16 at 16:30 Acetaminophen/ Hydrocodone Bitart ([place] (5/325)) 1 tab Q6H PRN PO MODERATE PAIN LEVEL 4-6 Last administered on 07/18/16 00:29; Admin Dose 1 TAB; Start at 16:30 Acetaminophen/ Hydrocodone Bitart ([place] (5/325)) 2 tab Q6H PRN PO SEVERE PAIN LEVEL 7-10 Last administered on 07/10/16 13:15; Admin Dose 2 TAB; Start at 16:30 Docusate Sodium (Colace) 100 mg Q12H PRN PO CONSTIPATION; Start 06/30/16 at 16: 30 Magnesium Hydroxide (Milk Of Mag) 30 ml DAILY PRN PO CONSTIPATION; Start at 16:30 Bisacodyl (Dulcolax Supp) 10 mg DAILY PRN [place] CONSTIPATION; Start 06/30/16 at 16 :30 Pantoprazole 40 mg 40 mg DAILY@06 IV Last administered on 07/23/16 05:36; Admin Dose 40 MG; Start 07/01/16 at 06:00 Erythromycin Lactobionate/ Sodium Chloride (Erythromycin Lactobionate/NS) 100 ml @ 100 mls/hr Q6 IVPB Last administered on 07/23/16 18:26; Admin Dose 100 MLS/HR; Start 07/09/16 at 00:00 Albuterol (Ventolin Hfa) 2 puff Q4H PRN INH SHORTNESS OF BREATH Last administered on 07/20/16 08:56; Admin Dose 2 PUFF; Start 07/14/16 at 22:00 Ipratropium [place] 4 puff 4 puff Q4H PRN INH SHORTNESS OF BREATH Last administered on 07/20/16 08:55; Admin Dose 4 PUFF; Start 07/14/16 at 22:00 Meropenem (Merrem 500 Mg/ 100 ml (Pmx)) 100 ml @ 200 mls/hr Q24H IVPB Last administered on 07/22/16 21:00; Admin Dose 200 MLS/HR; Start 07/16/16 at 21:00 Heparin Sodium (Porcine) (Heparin (5000 Units/0.5 ml)) 5,000 unit BID SC Last administered on 07/23/16 08:35; Admin Dose 5,000 UNIT; Start 07/18/16 at 21:00 Metoclopramide HCl (Reglan) 5 mg Q8 IV Last administered on 07/23/16 13:41; Admin Dose 5 MG; Start 07/18/16 at 22:00 Diagnostic Test (Pha) 1 ea 1 ea Q4 XX Last administered on 07/23/16 17:06; Admin Dose 1 EA; Start 07/19/16 at 13:00 Total Parenteral Nutrition 1,000 ml @ 30 mls/hr Q24H IV Last administered on 18:27; Admin Dose 30 MLS/HR; Start 07/19/16 at 14:00 Albumin Human (Albumin Human 25%) 100 ml @ 0 mls/hr DAILY IV Last administered on 07/23/16 08:31; Admin Dose 0 MLS/HR; Start 07/21/16 at 09:00; Stop 07/24/16 at 08:59 Morphine Sulfate 4 mg 4 mg Q4H PRN IV SEVERE PAIN LEVEL 7-10 Last administered on 07/23/16 15:09; Admin Dose 4 MG; Start 07/22/16 at 16:30 Trimethoprim/ Sulfamethoxazole/ Dextrose (Bactrim/D5W) 260 ml @ 173.333 mls/hr Q8 IVPB Last administered on 07/23/16 15:10; Admin Dose 173.333 MLS/HR; Start 07/23/16 at 14:00 DARBY KNOWLES MD July 23, 2016 18:53
--- NOTE | 2016-07-23 19:57 | CONS ---
Date/Time of Note Date/Time of Note DATE: 07/23/16 TIME: 19:56 Assessment/Plan Assessment/Plan Additional Assessment/Plan IMPRESSION: 1. Biliary obstruction. Status post biliary stent, bilirubin is now going up, radiologist needs to evaluate biliary drain 2. Gram negative bacteremia, either from the urine or from the biliary system. 3. 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 4. 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 Gastric outlet obstruction secondary to tumor growing over the proximal part of the metallic stent in the duodenum. 6. Aspiration pneumonia 7. Renal failure, it is multifactorial 8. UTI with Pseudomonas and Chelsy in the urine, E. coli in the blood 9. 4+ pedal edema, fluid overload 10. Respiratory failure successfully extubated Plan Continue NG tube to intermittent suction since the Patient has got gastric outlet obstruction. Biliary obstruction status post plastic biliary stent both external and internal Respiratory failure patient is on vent Continue antibiotic When patient is more stable will place another duodenal stent. Patient is not a candidate for surgical bypass ID follow-up Continue dialysis Monitor liver function if bilirubin keeps going up and radiologist needs to evaluate biliary drainage TPN Sonogram of the liver, revealed fatty liver no obstruction Cholangiogram done yesterday on 07/22/2016 showed complete obstruction of the distal part of the bile duct. Patient bilirubin is going up due to the obstruction. His prognosis remains poor. Tumor is very aggressive and growing fast Consultation Date/Type/Reason Admit Date/Time Jun 30, 2016 at 15:42 Initial Consult Date 06/30/16 Type of Consultation: Oncology Referring Provider: GAMALIEL HAIR MD 24 HR Interval Summary Subjective hx not possible: pt critical Exam/Review of Systems Vital Signs Vitals Vital Signs Date Time Temp Pulse Resp B/P Pulse Ox O2 Delivery O2 Flow Rate FiO2 07/23/16 16:46 97 3.0 32 07/23/16 12:40 98.1 111 18 130/76 07/23/16 12:30 Nasal Cannula Intake and Output 07/22/16 07/22/16 07/23/16 15:00 23:00 07:00 Intake Total 490 ml 662.5 ml 510 ml Output Total 0 ml 2830 ml 120 ml Balance 490 ml -2167.5 ml 390 ml Exam Constitutional: alert, oriented, well developed Psych: nl mood/affect, no complaints Head: atraumatic, normocephalic Eyes: EOMI, PERRL, nl conjunctiva, nl lids, nl sclera ENMT: nl external ears & nose, nl lips & teeth, nl nasal mucosa & septum Neck: non-tender, supple Respiratory: clear to auscultation, normal air movement Cardiovascular: nl pulses, regular rate and rhythm Gastrointestinal: nl liver, spleen, non-tender, soft Musculoskeletal: nl extremities to inspection, nl gait and stance Extremities: normal pulses Neurological: PATENT LAW SPECIALIST II-XII intact, nl mental status, nl speech, nl strength Skin: nl turgor, No rash or lesions Lymph: nl lymph nodes Results Result Diagram: 07/23/16 0430 07/23/16 0430 Results 24 hrs Laboratory Tests Test 07/22/16 21:03 07/23/16 00:28 07/23/16 04:30 07/23/16 08:29 Bedside Glucose 143 152 146 150 White Blood Count 22.3 H Red Blood Count 3.69 L Hemoglobin 11.0 L Hematocrit 32.6 L Mean Corpuscular Volume 88.3 Mean Corpuscular Hemoglobin 29.8 Mean Corpuscular Hemoglobin Concent 33.7 Red Cell Distribution Width 18.4 H Platelet Count 68 L Mean Platelet Volume 12.2 H Neutrophils % 90.8 H Lymphocytes % 2.6 L Monocytes % 2.2 Eosinophils % 0.2 Basophils % 0.2 Nucleated Red Blood Cells % 0.0 Neutrophils # 20.3 H Lymphocytes # 0.6 L Monocytes # 0.5 Eosinophils # 0.0 Basophils # 0.0 Nucleated Red Blood Cells # 0.0 Sodium Level 141 Potassium Level 4.0 Chloride Level 108 Carbon Dioxide Level 22 Anion Gap 15 Blood Urea Nitrogen 59 H Creatinine 2.78 H Glucose Level 160 Calcium Level 8.7 Total Bilirubin 8.4 H Direct Bilirubin 7.80 H Indirect Bilirubin 0.6 Aspartate Amino Transf (AST/SGOT) 62 H Alanine Aminotransferase (ALT/SGPT) 54 Alkaline Phosphatase 153 H Total Protein 5.2 L Albumin 2.7 L Globulin 2.50 Albumin/Globulin Ratio 1.08 Test 07/23/16 13:24 07/23/16 16:59 Bedside Glucose 146 168 Medications Medications Current Medications Ondansetron HCl (Zofran Inj) 4 mg Q6H PRN IV NAUSEA AND/OR VOMITING Last administered on 5/17/17at 23:32; Admin Dose 4 MG; Start 06/30/16 at 16:30 Acetaminophen (Tylenol Tab) 650 mg Q6H PRN PO PAIN LEVEL 1-3 OR FEVER Last administered on 07/05/16 19:31; Admin Dose 650 MG; Start 06/30/16 at 16:30 Acetaminophen (Tylenol Supp) 650 mg Q6H PRN [place] PAIN LEVEL 1-3 OR FEVER; Start 06/30/16 at 16:30 Acetaminophen/ Hydrocodone Bitart ([place] (5/325)) 1 tab Q6H PRN PO MODERATE PAIN LEVEL 4-6 Last administered on 07/18/16 00:29; Admin Dose 1 TAB; Start at 16:30 Acetaminophen/ Hydrocodone Bitart ([place] (5/325)) 2 tab Q6H PRN PO SEVERE PAIN LEVEL 7-10 Last administered on 07/10/16 13:15; Admin Dose 2 TAB; Start at 16:30 Docusate Sodium (Colace) 100 mg Q12H PRN PO CONSTIPATION; Start 06/30/16 at 16: 30 Magnesium Hydroxide (Milk Of Mag) 30 ml DAILY PRN PO CONSTIPATION; Start at 16:30 Bisacodyl (Dulcolax Supp) 10 mg DAILY PRN [place] CONSTIPATION; Start 06/30/16 at 16 :30 Pantoprazole 40 mg 40 mg DAILY@06 IV Last administered on 07/23/16 05:36; Admin Dose 40 MG; Start 07/01/16 at 06:00 Erythromycin Lactobionate/ Sodium Chloride (Erythromycin Lactobionate/NS) 100 ml @ 100 mls/hr Q6 IVPB Last administered on 07/23/16 18:26; Admin Dose 100 MLS/HR; Start 07/09/16 at 00:00 Albuterol (Ventolin Hfa) 2 puff Q4H PRN INH SHORTNESS OF BREATH Last administered on 07/20/16 08:56; Admin Dose 2 PUFF; Start 07/14/16 at 22:00 Ipratropium [place] 4 puff 4 puff Q4H PRN INH SHORTNESS OF BREATH Last administered on 07/20/16 08:55; Admin Dose 4 PUFF; Start 07/14/16 at 22:00 Meropenem (Merrem 500 Mg/ 100 ml (Pmx)) 100 ml @ 200 mls/hr Q24H IVPB Last administered on 07/22/16 21:00; Admin Dose 200 MLS/HR; Start 07/16/16 at 21:00 Heparin Sodium (Porcine) (Heparin (5000 Units/0.5 ml)) 5,000 unit BID SC Last administered on 07/23/16 08:35; Admin Dose 5,000 UNIT; Start 07/18/16 at 21:00 Metoclopramide HCl (Reglan) 5 mg Q8 IV Last administered on 07/23/16 13:41; Admin Dose 5 MG; Start 07/18/16 at 22:00 Diagnostic Test (Pha) 1 ea 1 ea Q4 XX Last administered on 07/23/16 17:06; Admin Dose 1 EA; Start 07/19/16 at 13:00 Total Parenteral Nutrition 1,000 ml @ 30 mls/hr Q24H IV Last administered on 18:27; Admin Dose 30 MLS/HR; Start 07/19/16 at 14:00 Albumin Human (Albumin Human 25%) 100 ml @ 0 mls/hr DAILY IV Last administered on 07/23/16 08:31; Admin Dose 0 MLS/HR; Start 07/21/16 at 09:00; Stop 07/24/16 at 08:59 Morphine Sulfate 4 mg 4 mg Q4H PRN IV SEVERE PAIN LEVEL 7-10 Last administered on 07/23/16 15:09; Admin Dose 4 MG; Start 07/22/16 at 16:30 Trimethoprim/ Sulfamethoxazole/ Dextrose (Bactrim/D5W) 260 ml @ 173.333 mls/hr Q8 IVPB Last administered on 07/23/16 15:10; Admin Dose 173.333 MLS/HR; Start 07/23/16 at 14:00 TIANNA SALINAS MD July 23, 2016 19:57
[2016-07-23] MEDS: MEROPENEM 500 MG/100 ML (PMX) 100 ML IVPB SCH (20:10)
[2016-07-24] VITALS (24 sets, daily range): BP systolic 82–110; BP diastolic 50–70; PULSE 100–120; RESP 18–20
[2016-07-24] MEDS: ACCU-CHEK XX SCH ×6 (01:00→21:00)
[2016-07-24] MEDS: ERYTHROMYCIN LACTOBIONATE 250 MG in SOD CHLORIDE 0.9% 100 ML IVPB SCH ×4 (01:12→17:37)
[2016-07-24] MEDS: ONDANSETRON 4 MG INJ IV PRN (04:11)
[2016-07-24] MEDS: morphine 4 MG/ML VIAL IV PRN ×3 (04:11→21:18)
[2016-07-24] MEDS: METOCLOPRAMIDE 10 MG INJ IV SCH ×3 (05:42→21:10)
[2016-07-24] MEDS: TRIMETHOPRIM/SULFAMETHOXAZOLE 10 ML in DEXTROSE 5% 250 ML IVPB SCH ×2 (05:42→14:49)
[2016-07-24] MEDS: PANTOPRAZOLE 40 MG INJ IV SCH (05:42)
[2016-07-24 06:50] LABS: ALBUMIN 2.6 g/dl (3.3-4.9); CALCIUM 8.5 mg/dl (8.4-10.2); MAGNESIUM 2.3 mg/dl (1.7-2.5); PHOSPHORUS 4.4 mg/dl (2.5-4.9)
[2016-07-24 06:59] LABS: CREATININE 3.23 mg/dl (0.61-1.24)
[2016-07-24 08:18] LABS: ADD SCAN DIFF NO
[2016-07-24 08:22] LABS: ABNORMAL IP MESSAGE 1; HEMATOCRIT 30.3 % (42.0-52.0); HEMOGLOBIN 10.2 g/dl (14.0-18.0); MEAN CORPUSCULAR HEMOGLOBIN 30.3 pg (29.0-33.0); MEAN CORPUSCULAR HGB CONC 33.7 g/dl (32.0-37.0); MEAN CORPUSCULAR VOLUME 89.9 fl (82.0-101.0); PLATELET COUNT 61 10^3/UL (140-415); RED BLOOD COUNT 3.37 10^6/ul (4.70-6.10); WHITE BLOOD COUNT 19.3 10^3/ul (4.8-10.8)
[2016-07-24] MEDS: HEPARIN 5,000 UNIT/0.5 ML VIAL SC SCH (08:29)
[2016-07-24 10:59] LABS: EOSINOPHILS # 0.2 10^3/ul (0.0-0.5); MONOCYTE # 0.2 10^3/ul (0.3-0.9); MYELOCYTES # 0.2; NEUTROPHIL # 18.5 10^3/ul (1.6-7.5)
--- NOTE | 2016-07-24 10:59 | PN ---
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 Has since been diagnosed with metastatic urothelial cancer. Patient now readmitted with sepsis with abdominal pain. 1. Septic Shock 2/2 Aspiration PNA : Now off pressors, leukocytosis worsening with bandemia. * Biliary fluid cultures growing multiple organisms 2. Transaminitis with Hyperbilirubinemia 2nd biliary obstruction from metastatic cancer * Status post radiologic evaluation of biliary catheter July 23, 2016 / findings show catheter in good position, but common and bile duct blocked by duodenal mass 3. Metastatic Urothelial cancer with possible carcinomatosis 4. Tumor Obstructed duodenum with gastric outlet obstruction s/p duodenal stent 06/02/16 and with new ERCP showing tumor eroding stent and completely obstructing lumen 5. Steatosis 6. Acute Respiratory Failure secondary to aspiration pneumonia: Extubated , now on BiPAP 7. Acute kidney injury secondary to acute tubular necrosis from septic shock and also contributing vancomycin requiring HD 8. S/p ecoli bacteremia and pseudomonas UTI 9. Chelsy UTI on fluconazole 10. TPN therapy PLAN: * Overall condition is very unfortunate, patient's duodenal mass continues to pose a problem, however patient remains too unstable for chemotherapy or GI intervention * Patient also remains high reintubation risk. Will need continued aggressive diuresis/dialysis. * PT eval is still pending * Continue abx for bilateral pneumonia / infected biliary tract /possibly infected duodenal stent * Not a candidate for chemo at this time * Continue HD for CHARITY and pulm fluid overload / status post albumin and Lasix * Palliative care consulting on the case / intermediate manager prognosis poor * Continue TPN until patient is cleared for a diet /ice chips should be safe for now / strict aspiration precautions / NG tube to intermittent suction * Continue supportive care and follow GI plan CARE TIME: >35 mins. Subjective 24 Hr Interval Summary Free Text/Dictation Patient seen and evaluated. Back on BiPAP at his own request. Discussed treatment plan with the . Exam/Review of Systems Vital Signs Vitals Vital Signs Date Time Temp Pulse Resp B/P Pulse Ox O2 Delivery O2 Flow Rate FiO2 07/24/16 09:02 110 96 35 07/24/16 08:00 Nasal Cannula 2.0 07/24/16 07:31 98.0 18 110/70 Intake and Output 07/23/16 07/23/16 07/24/16 15:00 23:00 07:00 Intake Total 220 ml 720 ml 660 ml Output Total 85 ml 190 ml 30 ml Balance 135 ml 530 ml 630 ml Exam Constitutional: alert /seems slightly less lethargic / follows commands / responds to greetings ENMT: icteric ++ Respiratory: clear to auscultation / diminished significantly on the right with coarse crackles on the left Cardiovascular: regular rate and rhythm Gastrointestinal: soft, biliary drainage still in place with minimal greenish drain No distended his office dysphagia Musculoskeletal: Daniel edema pitting / diffuse anasarca Genitourinary - Male: No nl scrotum (severe scrotal edema) Results Result Diagram: 07/24/16 0546 07/24/16 0546 Results 24 hrs Laboratory Tests Test 07/23/16 13:24 07/23/16 16:59 07/23/16 20:09 07/24/16 01:11 Bedside Glucose 146 168 158 159 Test 07/24/16 05:41 07/24/16 05:46 07/24/16 08:10 Bedside Glucose 144 160 White Blood Count 19.3 H Red Blood Count 3.37 L Hemoglobin 10.2 L Hematocrit 30.3 L Mean Corpuscular Volume 89.9 Mean Corpuscular Hemoglobin 30.3 Mean Corpuscular Hemoglobin Concent 33.7 Red Cell Distribution Width 19.0 H Platelet Count 61 L Mean Platelet Volume Sodium Level 139 Potassium Level 4.0 Chloride Level 106 Carbon Dioxide Level 20 L Anion Gap 17 H Blood Urea Nitrogen 76 H Creatinine 3.23 H Glucose Level 170 Calcium Level 8.5 Phosphorus Level 4.4 Magnesium Level 2.3 Albumin 2.6 L Medications Medications Current Medications Ondansetron HCl (Zofran Inj) 4 mg Q6H PRN IV NAUSEA AND/OR VOMITING Last administered on 07/24/16t 04:11; Admin Dose 4 MG; Start 06/30/16 at 16:30 Acetaminophen (Tylenol Tab) 650 mg Q6H PRN PO PAIN LEVEL 1-3 OR FEVER Last administered on 07/05/16 19:31; Admin Dose 650 MG; Start 06/30/16 at 16:30 Acetaminophen (Tylenol Supp) 650 mg Q6H PRN [place] PAIN LEVEL 1-3 OR FEVER; Start 06/30/16 at 16:30 Acetaminophen/ Hydrocodone Bitart ([place] (5/325)) 1 tab Q6H PRN PO MODERATE PAIN LEVEL 4-6 Last administered on 07/18/16 00:29; Admin Dose 1 TAB; Start at 16:30 Acetaminophen/ Hydrocodone Bitart ([place] (5/325)) 2 tab Q6H PRN PO SEVERE PAIN LEVEL 7-10 Last administered on 07/10/16 13:15; Admin Dose 2 TAB; Start at 16:30 Docusate Sodium (Colace) 100 mg Q12H PRN PO CONSTIPATION; Start 06/30/16 at 16: 30 Magnesium Hydroxide (Milk Of Mag) 30 ml DAILY PRN PO CONSTIPATION; Start at 16:30 Bisacodyl (Dulcolax Supp) 10 mg DAILY PRN [place] CONSTIPATION; Start 06/30/16 at 16 :30 Pantoprazole 40 mg 40 mg DAILY@06 IV Last administered on 07/24/16 05:42; Admin Dose 40 MG; Start 07/01/16 at 06:00 Erythromycin Lactobionate/ Sodium Chloride (Erythromycin Lactobionate/NS) 100 ml @ 100 mls/hr Q6 IVPB Last administered on 07/24/16 07:05; Admin Dose 100 MLS/HR; Start 07/09/16 at 00:00 Albuterol (Ventolin Hfa) 2 puff Q4H PRN INH SHORTNESS OF BREATH Last administered on 07/20/16 08:56; Admin Dose 2 PUFF; Start 07/14/16 at 22:00 Ipratropium [place] 4 puff 4 puff Q4H PRN INH SHORTNESS OF BREATH Last administered on 07/20/16 08:55; Admin Dose 4 PUFF; Start 07/14/16 at 22:00 Meropenem (Merrem 500 Mg/ 100 ml (Pmx)) 100 ml @ 200 mls/hr Q24H IVPB Last administered on 07/23/16 20:10; Admin Dose 200 MLS/HR; Start 07/16/16 at 21:00 Heparin Sodium (Porcine) (Heparin (5000 Units/0.5 ml)) 5,000 unit BID SC Last administered on 07/23/16 20:21; Admin Dose 5,000 UNIT; Start 07/18/16 at 21:00 Metoclopramide HCl (Reglan) 5 mg Q8 IV Last administered on 07/23/16 21:15; Admin Dose 5 MG; Start 07/18/16 at 22:00 Diagnostic Test (Pha) 1 ea 1 ea Q4 XX Last administered on 07/24/16 08:28; Admin Dose 1 EA; Start 07/19/16 at 13:00 Total Parenteral Nutrition (Tpn) 1,000 ml @ 30 mls/hr Q24H IV Last administered on 07/23/16 18:27; Admin Dose 30 MLS/HR; Start 07/19/16 at 14:00 Morphine Sulfate 4 mg 4 mg Q4H PRN IV SEVERE PAIN LEVEL 7-10 Last administered on 07/24/16 10:26; Admin Dose 4 MG; Start 07/22/16 at 16:30 Trimethoprim/ Sulfamethoxazole/ Dextrose (Bactrim/D5W) 260 ml @ 173.333 mls/hr Q8 IVPB Last administered on 07/24/16 05:42; Admin Dose 173.333 MLS/HR; Start 07/23/16 at 14:00 Procedures Procedures PROCEDURE: Transhepatic cholangiogram. CLINICAL INDICATION: Biliary obstruction. TECHNIQUE: The images were obtained in the intensive care unit with portable equipment. 2 images were obtained with the first image obtained after injection of 10 ml of Omnipaque-300 into the biliary drainage catheter and the second image obtained following injection of add additional 10 ml for a total of 20 ml of Omnipaque-300 into the biliary drainage catheter. COMPARISON: Biliary drainage procedure dated 07/11/2016. FINDINGS: Images demonstrate internal external biliary drainage catheter in satisfactory and unchanged position. The proximal side holes artery in the common bile duct and the distal side holes are present traversing the stent in the second and third part of the duodenum. Contrast enters the biliary system. No stones are visualized. However, there is severe obstruction of the distal common bile duct , likely due to the tumor in the duodenum. Only very minimal contrast enters the distal portion of the catheter within the duodenum. Minimal contrast is seen in the duodenum distal to the drainage catheter. IMPRESSION: 1. The biliary drainage catheter remains in satisfactory position. 2. Severe obstruction of the distal common bile duct due to the duodenal mass. 3. As seen previously, there is marked narrowing of the duodenum despite the presence of the metallic stent. RPTAT: QQ .Naldo Oneal MD, MD Date Time Electronically viewed and signed by .Naldo Oneal MD, on 07/23/2016 15:17 .R/ CC: TIANNA SALINAS MD, [place] M. July 24, 2016 10:59
[2016-07-24 11:00] LABS: BURR CELLS OCCASIONAL; PLATELET ESTIMATE PLT APPEAR DECREASED
[2016-07-24 11:43] LABS: ALBUMIN 2.5 g/dl (3.3-4.9)
[2016-07-24 11:46] LABS: BILIRUBIN,DIRECT 6.3 mg/dl (0.00-0.20); BILIRUBIN,INDIRECT 0.8 mg/dl (0-1.1); BILIRUBIN,TOTAL 7.1 mg/dl (0.2-1.3); TOTAL PROTEIN 5.2 g/dl (6.1-8.1)
--- NOTE | 2016-07-24 11:51 | CONS ---
Date/Time of Note Date/Time of Note DATE: 07/24/16 TIME: 11:48 Assessment/Plan Assessment/Plan Additional Assessment/Plan Chest x-ray was reviewed from yesterday evening which is again showing diffuse bilateral it without infiltrates. Assessment recommendations; 1. Patient admitted for gastric outlet obstruction then developed left aspiration pneumonia after undergoing EGD causing respiratory failure no successfully extubated several days ago. 2. Persistent leukocytosis and widespread infiltrates. 3. Metastatic uroepithelial cancer. 4. Renal failure, on hemodialysis. 5. Thrombocytopenia. 6. DNR status. Continue BiPAP as needed. Continue current supportive care. Prognosis is poor. Consultation Date/Type/Reason Admit Date/Time Jun 30, 2016 at 15:42 Initial Consult Date 07/12/16 Type of Consultation: Pulmonary Referring Provider: GAMALIEL HAIR MD 24 HR Interval Summary Free Text/Dictation Patient condition is tenuous at best. Was reporting increased shortness of breath and requested BiPAP with improvement in symptoms. Patient is quite awake and alert. General exam; elderly male, awake alert currently in no distress. On BiPAP. Exam/Review of Systems Vital Signs Vitals Vital Signs Date Time Temp Pulse Resp B/P Pulse Ox O2 Delivery O2 Flow Rate FiO2 07/24/16 09:02 110 96 35 07/24/16 08:00 Nasal Cannula 2.0 07/24/16 07:31 98.0 18 110/70 Intake and Output 07/23/16 07/23/16 07/24/16 15:00 23:00 07:00 Intake Total 220 ml 720 ml 660 ml Output Total 85 ml 190 ml 30 ml Balance 135 ml 530 ml 630 ml Exam HEENT exam; supple neck, no JVD. No lymphadenopathy. Midline trachea. No thyromegaly. Patient has multiple carious teeth. Patient remains icteric. Chest examined; diminished breath sound bilaterally with scattered crackles. S1 -S2 audible, no murmurs. Abdomen examination: Protuberant. Positive fluid thrill. Bowel sounds audible. Extremity exam; no peripheral edema. MASTER FIRE CONTROL TECHNICIAN examination; no focal deficit. Results Result Diagram: 07/24/16 0546 07/24/16 0546 Results 24 hrs Laboratory Tests Test 07/23/16 13:24 07/23/16 16:59 07/23/16 20:09 07/24/16 01:11 Bedside Glucose 146 168 158 159 Test 07/24/16 05:41 07/24/16 05:46 07/24/16 08:10 Bedside Glucose 144 160 White Blood Count 19.3 H Red Blood Count 3.37 L Hemoglobin 10.2 L Hematocrit 30.3 L Mean Corpuscular Volume 89.9 Mean Corpuscular Hemoglobin 30.3 Mean Corpuscular Hemoglobin Concent 33.7 Red Cell Distribution Width 19.0 H Platelet Count 61 L Mean Platelet Volume Neutrophils % 96.0 H Monocytes % 1.0 Eosinophils % 1.0 Metamyelocytes % 1.0 H Myelocytes % 1.0 H Nucleated Red Blood Cells % 1.0 H Neutrophils # 18.5 H Monocytes # 0.2 L Eosinophils # 0.2 Metamyelocytes # 0.2 Myelocytes # 0.2 Differential Comment MANUAL DIFF Platelet Estimate PLT APPEAR DECREASED Sodium Level 139 Potassium Level 4.0 Chloride Level 106 Carbon Dioxide Level 20 L Anion Gap 17 H Blood Urea Nitrogen 76 H Creatinine 3.23 H Glucose Level 170 Calcium Level 8.5 Phosphorus Level 4.4 Magnesium Level 2.3 Albumin 2.6 L Medications Medications Current Medications Ondansetron HCl (Zofran Inj) 4 mg Q6H PRN IV NAUSEA AND/OR VOMITING Last administered on 07/24/16 04:11; Admin Dose 4 MG; Start 06/30/16 at 16:30 Acetaminophen (Tylenol Tab) 650 mg Q6H PRN PO PAIN LEVEL 1-3 OR FEVER Last administered on 07/05/16 19:31; Admin Dose 650 MG; Start 06/30/16 at 16:30 Acetaminophen (Tylenol Supp) 650 mg Q6H PRN [place] PAIN LEVEL 1-3 OR FEVER; Start 06/30/16 at 16:30 Acetaminophen/ Hydrocodone Bitart ([place] (5/325)) 1 tab Q6H PRN PO MODERATE PAIN LEVEL 4-6 Last administered on 07/18/16 00:29; Admin Dose 1 TAB; Start at 16:30 Acetaminophen/ Hydrocodone Bitart ([place] (5/325)) 2 tab Q6H PRN PO SEVERE PAIN LEVEL 7-10 Last administered on 07/10/16 13:15; Admin Dose 2 TAB; Start at 16:30 Docusate Sodium (Colace) 100 mg Q12H PRN PO CONSTIPATION; Start 06/30/16 at 16: 30 Magnesium Hydroxide (Milk Of Mag) 30 ml DAILY PRN PO CONSTIPATION; Start at 16:30 Bisacodyl (Dulcolax Supp) 10 mg DAILY PRN [place] CONSTIPATION; Start 06/30/16 at 16 :30 Pantoprazole 40 mg 40 mg DAILY@06 IV Last administered on 07/24/16 05:42; Admin Dose 40 MG; Start 07/01/16 at 06:00 Erythromycin Lactobionate/ Sodium Chloride (Erythromycin Lactobionate/NS) 100 ml @ 100 mls/hr Q6 IVPB Last administered on 07/24/16 07:05; Admin Dose 100 MLS/HR; Start 07/09/16 at 00:00 Albuterol (Ventolin Hfa) 2 puff Q4H PRN INH SHORTNESS OF BREATH Last administered on 07/20/16 08:56; Admin Dose 2 PUFF; Start 07/14/16 at 22:00 Ipratropium [place] 4 puff 4 puff Q4H PRN INH SHORTNESS OF BREATH Last administered on 07/20/16 08:55; Admin Dose 4 PUFF; Start 07/14/16 at 22:00 Meropenem (Merrem 500 Mg/ 100 ml (Pmx)) 100 ml @ 200 mls/hr Q24H IVPB Last administered on 07/23/16 20:10; Admin Dose 200 MLS/HR; Start 07/16/16 at 21:00 Heparin Sodium (Porcine) (Heparin (5000 Units/0.5 ml)) 5,000 unit BID SC Last administered on 07/23/16 20:21; Admin Dose 5,000 UNIT; Start 07/18/16 at 21:00 Metoclopramide HCl (Reglan) 5 mg Q8 IV Last administered on 07/23/16 21:15; Admin Dose 5 MG; Start 07/18/16 at 22:00 Diagnostic Test (Pha) 1 ea 1 ea Q4 XX Last administered on 07/24/16 08:28; Admin Dose 1 EA; Start 07/19/16 at 13:00 Total Parenteral Nutrition (Tpn) 1,000 ml @ 30 mls/hr Q24H IV Last administered on 07/23/16 18:27; Admin Dose 30 MLS/HR; Start 07/19/16 at 14:00 Morphine Sulfate 4 mg 4 mg Q4H PRN IV SEVERE PAIN LEVEL 7-10 Last administered on 07/24/16 10:26; Admin Dose 4 MG; Start 07/22/16 at 16:30 Trimethoprim/ Sulfamethoxazole/ Dextrose (Bactrim/D5W) 260 ml @ 173.333 mls/hr Q8 IVPB Last administered on 07/24/16 05:42; Admin Dose 173.333 MLS/HR; Start 07/23/16 at 14:[address] July 24, 2016 11:51
--- NOTE | 2016-07-24 13:27 | CONS ---
Date/Time of Note Date/Time of Note DATE: 07/24/16 TIME: 13:26 Assessment/Plan Assessment/Plan Chief Complaint/Hosp Course 60 year old male with metastatic urothelial cancer who had presented during the last admission with gastric outlet obstruction status post duodenal stent . Has since been diagnosed with metastatic urothelial cancer. Patient now readmitted with sepsis with abdominal pain. He is currently in critical condition, intubated in the ICU # metastatic urothelial cancer - CT A/P demonstrates infiltrative neoplasm involving the cecum, ascending colon and hepatic flexure with extension of tumor to the serosa involving the lateral wall of the duodenum. This has advanced as compared to 05/27/2016. - I had planned to start gemcitabine 1000 mg/m2 D1, 8 and carboplatin AUC 4.5 D1 however needed to wait till bacteremia adequately treated and now patient with left lung aspiration pneumonia. Patient extubated 07/20/16. Given rapidly growing tumor, would want to start chemo ISSA when patient more stable, more ambulatory, infection adequately controlled and thrombocytopenia and hyperbilirubinemia improved. Would then need to start gemcitabine/carboplatin with dose adjustments depending on renal and hepatic function. Would use 50% of dose of carboplatin in ESRD on HD; would advise HD 6-12 hours after gemcitabine given with caution due to hyperbilirubinemia with initial dose 800 mg/m2. - discussed with Dr. De, duodenal stent obstructed by tumor, status post new internal biliary catheter 07/11/16. Plan for new duodenal stent when more stable. - Dr. Nolan to arrange for POLST form to be filled out - Hg has improved after blood transfusion and is now > 10 # Leukocytosis and thrombocytopenia, etiology unclear - WBC now 22.3 up from 14.4, Plt down from 106 to 69 to 61. DIC panel not consistent with DIC. Concerning for sepsis. Re-check DIC panel. - Appreciate ID recs. - Peripheral smear reviewed by pathology, showed increased wbcs, left shifted, bands, no blasts, no dysplastic features, no schistocytes, no leukoerythroblastic process # Elevated D-dimer > 10,000. Upper and lower extremity dopplers negative for DVT 07/21/16. # E. coli bacteremia - with sepsis secondary to biliary obstruction s/p attempted unsuccessful ERCP 07/03, s/p external percutaneous biliary drainage 07/05 - Last blood cultures were clear from 07/05/16 - will hold on removing the port for now. If ID feels it is necessary to remove and if bacteremia does not clear, will remove at that time # Biliary obstruction - s/p percutaneous biliary drain and status post new biliary catheter 07/11/16 - status post EGD that demonstrated gastric outlet obstruction with tumor growing over stent and almost complete obstructing lumen. - Now Bilirubin up to 7.8, plan for another biliary stent when more stable per GI. Cholangiogram 07/22/16 demonstrated 1. The biliary drainage catheter remains in satisfactory position. 2. Severe obstruction of the distal common bile duct due to the duodenal mass. 3. As seen previously, there is marked narrowing of the duodenum despite the presence of the metallic stent. - US Abdomen 07/19/16 demonstrated mild fatty infiltration of liver, new moderate ascites, mildly dilated CBD, 8 mm, decreased - Biliary fluid culture +stenotrophomonas, VRE, appreciate ID recs, patient on bactrim in addition to other broad spectrum antibiotics # Diabetic Gastroparesis - cont reglan; erythromycin added as prokinetic agent per GI - on TPN # CHARITY - Acute kidney injury secondary to acute tubular necrosis from septic shock and also contributing vancomycin - cont HD per renal Problems: Consultation Date/Type/Reason Admit Date/Time Jun 30, 2016 at 15:42 Initial Consult Date 06/30/16 Type of Consultation: Oncology Referring Provider: GAMALIEL HAIR MD 24 HR Interval Summary Free Text/Dictation Patient on BiPAP. Exam/Review of Systems Vital Signs Vitals Vital Signs Date Time Temp Pulse Resp B/P Pulse Ox O2 Delivery O2 Flow Rate FiO2 07/24/16 12:24 110 07/24/16 12:12 97.5 18 86/ 98 07/24/16 11:50 40 07/24/16 08:00 Nasal Cannula 2.0 Intake and Output 07/23/16 07/23/16 07/24/16 15:00 23:00 07:00 Intake Total 220 ml 720 ml 660 ml Output Total 85 ml 190 ml 30 ml Balance 135 ml 530 ml 630 ml Exam Constitutional: on BiPAP Respiratory: bibasilar crackles , no wheezing, labored breathing Cardiovascular: regular rate and rhythm Gastrointestinal: soft, No distended Musculoskeletal: nl extremities to inspection + deja HD catheter Results Result Diagram: 07/24/16 0546 07/24/1646 Results 24 hrs Laboratory Tests Test 07/23/16 16:59 07/23/16 20:09 07/24/16 01:11 07/24/16 05:41 Bedside Glucose 168 158 159 144 Test 07/24/16 05:46 07/24/16 08:10 07/24/16 12:33 White Blood Count 19.3 H Red Blood Count 3.37 L Hemoglobin 10.2 L Hematocrit 30.3 L Mean Corpuscular Volume 89.9 Mean Corpuscular Hemoglobin 30.3 Mean Corpuscular Hemoglobin Concent 33.7 Red Cell Distribution Width 19.0 H Platelet Count 61 L Mean Platelet Volume Neutrophils % 96.0 H Monocytes % 1.0 Eosinophils % 1.0 Metamyelocytes % 1.0 H Myelocytes % 1.0 H Nucleated Red Blood Cells % 1.0 H Neutrophils # 18.5 H Monocytes # 0.2 L Eosinophils # 0.2 Metamyelocytes # 0.2 Myelocytes # 0.2 Differential Comment MANUAL DIFF Platelet Estimate PLT APPEAR DECREASED Sodium Level 139 Potassium Level 4.0 Chloride Level 106 Carbon Dioxide Level 20 L Anion Gap 17 H Blood Urea Nitrogen 76 H Creatinine 3.23 H Glucose Level 170 Calcium Level 8.5 Phosphorus Level 4.4 Magnesium Level 2.3 Total Bilirubin 7.1 H Direct Bilirubin 6.30 H Indirect Bilirubin 0.8 Aspartate Amino Transf (AST/SGOT) 95 #H Alanine Aminotransferase (ALT/SGPT) 62 Alkaline Phosphatase 146 H Total Protein 5.2 L Albumin 2.5 L Bedside Glucose 160 170 Medications Medications Current Medications Ondansetron HCl (Zofran Inj) 4 mg Q6H PRN IV NAUSEA AND/OR VOMITING Last administered on 07/24/16 04:11; Admin Dose 4 MG; Start 06/30/16 at 16:30 Acetaminophen (Tylenol Tab) 650 mg Q6H PRN PO PAIN LEVEL 1-3 OR FEVER Last administered on 07/05/16 19:31; Admin Dose 650 MG; Start 06/30/16 at 16:30 Acetaminophen (Tylenol Supp) 650 mg Q6H PRN [place] PAIN LEVEL 1-3 OR FEVER; Start 06/30/16 at 16:30 Acetaminophen/ Hydrocodone Bitart ([place] (5/325)) 1 tab Q6H PRN PO MODERATE PAIN LEVEL 4-6 Last administered on 07/18/16 00:29; Admin Dose 1 TAB; Start at 16:30 Acetaminophen/ Hydrocodone Bitart ([place] (5/325)) 2 tab Q6H PRN PO SEVERE PAIN LEVEL 7-10 Last administered on 07/10/16 13:15; Admin Dose 2 TAB; Start at 16:30 Docusate Sodium (Colace) 100 mg Q12H PRN PO CONSTIPATION; Start 06/30/16 at 16: 30 Magnesium Hydroxide (Milk Of Mag) 30 ml DAILY PRN PO CONSTIPATION; Start at 16:30 Bisacodyl (Dulcolax Supp) 10 mg DAILY PRN [place] CONSTIPATION; Start 06/30/16 at 16 :30 Pantoprazole 40 mg 40 mg DAILY@06 IV Last administered on 07/24/16 05:42; Admin Dose 40 MG; Start 07/01/16 at 06:00 Erythromycin Lactobionate/ Sodium Chloride (Erythromycin Lactobionate/NS) 100 ml @ 100 mls/hr Q6 IVPB Last administered on 07/24/16 12:44; Admin Dose 100 MLS/HR; Start 07/09/16 at 00:00 Albuterol (Ventolin Hfa) 2 puff Q4H PRN INH SHORTNESS OF BREATH Last administered on 07/20/16 08:56; Admin Dose 2 PUFF; Start 07/14/16 at 22:00 Ipratropium [place] 4 puff 4 puff Q4H PRN INH SHORTNESS OF BREATH Last administered on 07/20/16 08:55; Admin Dose 4 PUFF; Start 07/14/16 at 22:00 Meropenem (Merrem 500 Mg/ 100 ml (Pmx)) 100 ml @ 200 mls/hr Q24H IVPB Last administered on 07/23/16 20:10; Admin Dose 200 MLS/HR; Start 07/16/16 at 21:00 Metoclopramide HCl (Reglan) 5 mg Q8 IV Last administered on 07/23/16 21:15; Admin Dose 5 MG; Start 07/18/16 at 22:00 Diagnostic Test (Pha) 1 ea 1 ea Q4 XX Last administered on 07/24/16 12:44; Admin Dose 1 EA; Start 07/19/16 at 13:00 Total Parenteral Nutrition (Tpn) 1,000 ml @ 30 mls/hr Q24H IV Last administered on 07/23/16 18:27; Admin Dose 30 MLS/HR; Start 07/19/16 at 14:00 Morphine Sulfate 4 mg 4 mg Q4H PRN IV SEVERE PAIN LEVEL 7-10 Last administered on 07/24/16 10:26; Admin Dose 4 MG; Start 07/22/16 at 16:30 Trimethoprim/ Sulfamethoxazole/ Dextrose (Bactrim/D5W) 260 ml @ 173.333 mls/hr Q8 IVPB Last administered on 07/24/16 05:42; Admin Dose 173.333 MLS/HR; Start 07/23/16 at 14:00 TODARBY MD July 24, 2016 13:27
--- NOTE | 2016-07-24 14:11 | CONS ---
Date/Time of Note Date/Time of Note DATE: 07/24/16 TIME: 14:09 Assessment/Plan Assessment/Plan Additional Assessment/Plan 1. Acute fluid overload with anasarca started on HD during this admission 2. Acute kidney injury secondary to acute tubular necrosis from septic shock and also contributing vancomycin.did not improve, started on HD during this admission 3. Metabolic acidosis secondary to acute renal failure. 4. 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 5. Septic shock secondary to aspiration pneumonia and gastric outlet obstruction, status post duodenal stent placement. PLAN: s/p Extubation, s/p HD on monday, HD ordered for tomorrow AM first BIPAP prn As per current discussion with and son- they want to continue HD for a custodial we will wait for pt to be more stable before we decide for Permacath dialysis catheter will plan for Permacath after talking to family tomorrow will continue to follow up Consultation Date/Type/Reason Admit Date/Time Jun 30, 2016 at 15:42 Initial Consult Date 07/14/16 Type of Consultation: NEPHROLOGY Referring Provider: GAMALIEL HAIR MD 24 HR Interval Summary Free Text/Dictation no acute events, BP stable, HR high Exam/Review of Systems Vital Signs Vitals Vital Signs Date Time Temp Pulse Resp B/P Pulse Ox O2 Delivery O2 Flow Rate FiO2 07/24/16 13:34 100 95 40 07/24/16 12:12 97.5 18 86/ 07/24/16 08:00 Nasal Cannula 2.0 Intake and Output 07/23/16 07/23/16 07/24/16 15:00 23:00 07:00 Intake Total 220 ml 720 ml 660 ml Output Total 85 ml 190 ml 30 ml Balance 135 ml 530 ml 630 ml Exam Constitutional: alert, awake Respiratory: bibasilar crackles , no wheezing Cardiovascular: regular rate and rhythm Gastrointestinal: soft, No distended Musculoskeletal: nl extremities to inspection + deja HD catheter Results Result Diagram: 07/24/16 0546 07/24/16 0546 Results 24 hrs Laboratory Tests Test 07/23/16 16:59 07/23/16 20:09 07/24/16 01:11 07/24/16 05:41 Bedside Glucose 168 158 159 144 Test 07/24/16 05:46 07/24/16 08:10 07/24/16 12:33 White Blood Count 19.3 H Red Blood Count 3.37 L Hemoglobin 10.2 L Hematocrit 30.3 L Mean Corpuscular Volume 89.9 Mean Corpuscular Hemoglobin 30.3 Mean Corpuscular Hemoglobin Concent 33.7 Red Cell Distribution Width 19.0 H Platelet Count 61 L Mean Platelet Volume Neutrophils % 96.0 H Monocytes % 1.0 Eosinophils % 1.0 Metamyelocytes % 1.0 H Myelocytes % 1.0 H Nucleated Red Blood Cells % 1.0 H Neutrophils # 18.5 H Monocytes # 0.2 L Eosinophils # 0.2 Metamyelocytes # 0.2 Myelocytes # 0.2 Differential Comment MANUAL DIFF Platelet Estimate PLT APPEAR DECREASED Sodium Level 139 Potassium Level 4.0 Chloride Level 106 Carbon Dioxide Level 20 L Anion Gap 17 H Blood Urea Nitrogen 76 H Creatinine 3.23 H Glucose Level 170 Calcium Level 8.5 Phosphorus Level 4.4 Magnesium Level 2.3 Total Bilirubin 7.1 H Direct Bilirubin 6.30 H Indirect Bilirubin 0.8 Aspartate Amino Transf (AST/SGOT) 95 #H Alanine Aminotransferase (ALT/SGPT) 62 Alkaline Phosphatase 146 H Total Protein 5.2 L Albumin 2.5 L Bedside Glucose 160 170 Medications Medications Current Medications Ondansetron HCl (Zofran Inj) 4 mg Q6H PRN IV NAUSEA AND/OR VOMITING Last administered on 07/24/16 04:11; Admin Dose 4 MG; Start 06/30/16 at 16:30 Acetaminophen (Tylenol Tab) 650 mg Q6H PRN PO PAIN LEVEL 1-3 OR FEVER Last administered on 07/05/16 19:31; Admin Dose 650 MG; Start 06/30/16 at 16:30 Acetaminophen (Tylenol Supp) 650 mg Q6H PRN [place] PAIN LEVEL 1-3 OR FEVER; Start 06/30/16 at 16:30 Acetaminophen/ Hydrocodone Bitart ([place] (5/325)) 1 tab Q6H PRN PO MODERATE PAIN LEVEL 4-6 Last administered on 07/18/16 00:29; Admin Dose 1 TAB; Start at 16:30 Acetaminophen/ Hydrocodone Bitart ([place] (5/325)) 2 tab Q6H PRN PO SEVERE PAIN LEVEL 7-10 Last administered on 07/10/16 13:15; Admin Dose 2 TAB; Start at 16:30 Docusate Sodium (Colace) 100 mg Q12H PRN PO CONSTIPATION; Start 06/30/16 at 16: 30 Magnesium Hydroxide (Milk Of Mag) 30 ml DAILY PRN PO CONSTIPATION; Start at 16:30 Bisacodyl (Dulcolax Supp) 10 mg DAILY PRN [place] CONSTIPATION; Start 06/30/16 at 16 :30 Pantoprazole 40 mg 40 mg DAILY@06 IV Last administered on 07/24/16 05:42; Admin Dose 40 MG; Start 07/01/16 at 06:00 Erythromycin Lactobionate/ Sodium Chloride (Erythromycin Lactobionate/NS) 100 ml @ 100 mls/hr Q6 IVPB Last administered on 07/24/16 12:44; Admin Dose 100 MLS/HR; Start 07/09/16 at 00:00 Albuterol (Ventolin Hfa) 2 puff Q4H PRN INH SHORTNESS OF BREATH Last administered on 07/20/16 08:56; Admin Dose 2 PUFF; Start 07/14/16 at 22:00 Ipratropium [place] 4 puff 4 puff Q4H PRN INH SHORTNESS OF BREATH Last administered on 07/20/16 08:55; Admin Dose 4 PUFF; Start 07/14/16 at 22:00 Meropenem (Merrem 500 Mg/ 100 ml (Pmx)) 100 ml @ 200 mls/hr Q24H IVPB Last administered on 07/23/16 20:10; Admin Dose 200 MLS/HR; Start 07/16/16 at 21:00 Metoclopramide HCl (Reglan) 5 mg Q8 IV Last administered on 07/23/16 21:15; Admin Dose 5 MG; Start 07/18/16 at 22:00 Diagnostic Test (Pha) 1 ea 1 ea Q4 XX Last administered on 07/24/16 12:44; Admin Dose 1 EA; Start 07/19/16 at 13:00 Total Parenteral Nutrition (Tpn) 1,000 ml @ 30 mls/hr Q24H IV Last administered on 07/23/16 18:27; Admin Dose 30 MLS/HR; Start 07/19/16 at 14:00 Morphine Sulfate 4 mg 4 mg Q4H PRN IV SEVERE PAIN LEVEL 7-10 Last administered on 07/24/16 10:26; Admin Dose 4 MG; Start 07/22/16 at 16:30 Trimethoprim/ Sulfamethoxazole/ Dextrose (Bactrim/D5W) 260 ml @ 173.333 mls/hr Q8 IVPB Last administered on 07/24/16 05:42; Admin Dose 173.333 MLS/HR; Start 07/23/16 at 14:00 SHANAE LEWIS MD July 24, 2016 14:11
--- NOTE | 2016-07-24 14:45 | CONS ---
Date/Time of Note Date/Time of Note DATE: 07/24/16 TIME: 14:36 Assessment/Plan Assessment/Plan Chief Complaint/Hosp Course ID PROGRESS NOTE TOTAL ABX DAY # =>Fluconazole + Bactrim #2 + Zyvox #1 + Flagyl 250 IV #1 * Vanco IV-> DC'd 07/23 * Merrem-> DC 07/24 24H INTERVAL SUMMARY * No new issues today except culture result changed to (+)VRE * Awake, alert, mild tachycardia, afebrile, NGT, doing OK, low flow O2 via NC without dyspnea, spouse in room - no c/o * Biliary drain fluid (+)Stenotrophomonas + VRE (prior preliminary reported as Alpha Strep Viridans) * BODY FLUID CULTURE Final Organism 1 STENOTROPHOMONAS MALTOPHILIA / QUANTITY 3+ Organism 2 VANCO RESISTANT ENTEROCOCCUS / QUANTITY 3+ STENMAL VRE M.I.C. RX M.I.C. RX --------- --- --------- --- AMPICILLIN >=32 R GENTAMICIN 120 S LEVOFLOXACIN 4 I LINEZOLID 2 S PENICILLIN-G >=64 R QUINUPRISTIN/DALFOPRISTIN 0.5 S STREPTOMYCIN 300 R VANCOMYCIN >=32 R TRIMETHOPRIM/SULFAMETHOXAZOLE <=20 S PHYSICAL EXAMINATION: GENERAL: VSS, NAD, no fevers HEENT: Unremarkable, except (+)NGT NECK: Supple CHEST: Equal chest rise bilaterally, without dyspnea on observation / Port-A- Cath present HEART: Pulse RRR ABDOMEN: (+)biliary drain EXTREMITIES: Warm,moves all extremities SKIN: Warm, dry ID ASSESSMENT: 60 yo M admitted with: 1. Metastatic urothelial cancer w/peritoneal carcinomatosis w/obstruction of the third part of the duodenum-> H/O self-expanding metallic stent * s/p attempted unsuccessful ERCP 07/03. * s/p PTC 07/05/16. * s/p EGD showing tumor growing over stent and causing obstruction 07/12/16 2. Biliary Sepsis present on admission with transient hypotension, lactic acidosis 4.0 tachycardia, leukocytosis => due to biliary obstruction * Leukocytosis persisting, no fevers => Patient also received IV steroids * Transaminitis due to biliary obstruction * Biliary fluid MICRO: (+) Stenotrophomonas, (+)VRE * s/p (+)GNR bacteremia = E.Coli on admission=> Biliary source w/repeat BCx (-) 3. Aspiration pneumonia with hypoxic respiratory failure =>Stable on low flow supplemental O2 s/p intubation 07/12/16 and now extubation 07/20. 4. s/p UTI ->PSAR, then 07/06/16 [place] 5. Acute renal failure / CKD -> HD 6. Debility w/weight loss INVASIVES: *PIV, duodenal stent , Port-A-Cath, HD-Kale, NGT, FC, rectal device ABX ALLERGIES: KNDA CURRENT ABX: DAY# =>Fluconazole + Bactrim #2 + Zyvox #1 + Flagyl 250 IV #1 * Vanco IV-> DC'd 07/23 * Merrem-> DC 07/24 ID RECOMMENDATIONS: 1. Stenotrophomonas => Rx SENSITIVE to Bactrim. 2. DC Merrem => Start Zyvox + Flagyl 3. Continue Diflucan for now -- at risk disseminate candidiasis w/TPN via PORT- A-Cath . . Problems: Consultation Date/Type/Reason Admit Date/Time Jun 30, 2016 at 15:42 Initial Consult Date 06/30/16 Type of Consultation: ID Referring Provider: GAMALIEL HAIR MD Exam/Review of Systems Vital Signs Vitals Vital Signs Date Time Temp Pulse Resp B/P Pulse Ox O2 Delivery O2 Flow Rate FiO2 07/24/16 13:34 100 95 40 07/24/16 12:12 97.5 18 86/ 07/24/16 08:00 Nasal Cannula 2.0 Intake and Output 07/23/16 07/23/16 07/24/16 15:00 23:00 07:00 Intake Total 220 ml 720 ml 660 ml Output Total 85 ml 190 ml 30 ml Balance 135 ml 530 ml 630 ml Results Result Diagram: 07/24/16 0546 07/24/16 0546 Results 24 hrs Laboratory Tests Test 07/23/16 16:59 07/23/16 20:09 07/24/16 01:11 07/24/16 05:41 Bedside Glucose 168 158 159 144 Test 07/24/16 05:46 07/24/16 08:10 07/24/16 12:33 White Blood Count 19.3 H Red Blood Count 3.37 L Hemoglobin 10.2 L Hematocrit 30.3 L Mean Corpuscular Volume 89.9 Mean Corpuscular Hemoglobin 30.3 Mean Corpuscular Hemoglobin Concent 33.7 Red Cell Distribution Width 19.0 H Platelet Count 61 L Mean Platelet Volume Neutrophils % 96.0 H Monocytes % 1.0 Eosinophils % 1.0 Metamyelocytes % 1.0 H Myelocytes % 1.0 H Nucleated Red Blood Cells % 1.0 H Neutrophils # 18.5 H Monocytes # 0.2 L Eosinophils # 0.2 Metamyelocytes # 0.2 Myelocytes # 0.2 Differential Comment MANUAL DIFF Platelet Estimate PLT APPEAR DECREASED Sodium Level 139 Potassium Level 4.0 Chloride Level 106 Carbon Dioxide Level 20 L Anion Gap 17 H Blood Urea Nitrogen 76 H Creatinine 3.23 H Glucose Level 170 Calcium Level 8.5 Phosphorus Level 4.4 Magnesium Level 2.3 Total Bilirubin 7.1 H Direct Bilirubin 6.30 H Indirect Bilirubin 0.8 Aspartate Amino Transf (AST/SGOT) 95 #H Alanine Aminotransferase (ALT/SGPT) 62 Alkaline Phosphatase 146 H Total Protein 5.2 L Albumin 2.5 L Bedside Glucose 160 170 Medications Medications Current Medications Ondansetron HCl (Zofran Inj) 4 mg Q6H PRN IV NAUSEA AND/OR VOMITING Last administered on 07/24/16 04:11; Admin Dose 4 MG; Start 06/30/16 at 16:30 Acetaminophen (Tylenol Tab) 650 mg Q6H PRN PO PAIN LEVEL 1-3 OR FEVER Last administered on 07/05/16 19:31; Admin Dose 650 MG; Start 06/30/16 at 16:30 Acetaminophen (Tylenol Supp) 650 mg Q6H PRN [place] PAIN LEVEL 1-3 OR FEVER; Start 06/30/16 at 16:30 Acetaminophen/ Hydrocodone Bitart ([place] (5/325)) 1 tab Q6H PRN PO MODERATE PAIN LEVEL 4-6 Last administered on 07/18/16 00:29; Admin Dose 1 TAB; Start at 16:30 Acetaminophen/ Hydrocodone Bitart ([place] (5/325)) 2 tab Q6H PRN PO SEVERE PAIN LEVEL 7-10 Last administered on 07/10/16 13:15; Admin Dose 2 TAB; Start at 16:30 Docusate Sodium (Colace) 100 mg Q12H PRN PO CONSTIPATION; Start 06/30/16 at 16: 30 Magnesium Hydroxide (Milk Of Mag) 30 ml DAILY PRN PO CONSTIPATION; Start at 16:30 Bisacodyl (Dulcolax Supp) 10 mg DAILY PRN [place] CONSTIPATION; Start 06/30/16 at 16 :30 Pantoprazole 40 mg 40 mg DAILY@06 IV Last administered on 07/24/16 05:42; Admin Dose 40 MG; Start 07/01/16 at 06:00 Erythromycin Lactobionate/ Sodium Chloride (Erythromycin Lactobionate/NS) 100 ml @ 100 mls/hr Q6 IVPB Last administered on 07/24/16 12:44; Admin Dose 100 MLS/HR; Start 07/09/16 at 00:00 Albuterol (Ventolin Hfa) 2 puff Q4H PRN INH SHORTNESS OF BREATH Last administered on 07/20/16 08:56; Admin Dose 2 PUFF; Start 07/14/16 at 22:00 Ipratropium [place] 4 puff 4 puff Q4H PRN INH SHORTNESS OF BREATH Last administered on 07/20/16 08:55; Admin Dose 4 PUFF; Start 07/14/16 at 22:00 Meropenem (Merrem 500 Mg/ 100 ml (Pmx)) 100 ml @ 200 mls/hr Q24H IVPB Last administered on 07/23/16 20:10; Admin Dose 200 MLS/HR; Start 07/16/16 at 21:00 Metoclopramide HCl (Reglan) 5 mg Q8 IV Last administered on 07/23/16 21:15; Admin Dose 5 MG; Start 07/18/16 at 22:00 Diagnostic Test (Pha) 1 ea 1 ea Q4 XX Last administered on 07/24/16 12:44; Admin Dose 1 EA; Start 07/19/16 at 13:00 Total Parenteral Nutrition (Tpn) 1,000 ml @ 30 mls/hr Q24H IV Last administered on 07/23/16 18:27; Admin Dose 30 MLS/HR; Start 07/19/16 at 14:00 Morphine Sulfate 4 mg 4 mg Q4H PRN IV SEVERE PAIN LEVEL 7-10 Last administered on 07/24/16 10:26; Admin Dose 4 MG; Start 07/22/16 at 16:30 Trimethoprim/ Sulfamethoxazole/ Dextrose (Bactrim/D5W) 260 ml @ 173.333 mls/hr Q8 IVPB Last administered on 07/24/16 05:42; Admin Dose 173.333 MLS/HR; Start 07/23/16 at 14:00 ALEXANDER LEON NP July 24, 2016 14:45
[2016-07-24] MEDS: TPN 1,000 ML IV SCH (16:01)
[2016-07-24] MEDS ORDERED: SOD CHLORIDE 0.9% 250 ML IV ONE (20:30)
--- NOTE | 2016-07-24 20:31 | CONS ---
Date/Time of Note Date/Time of Note DATE: 07/24/16 TIME: 20:30 Assessment/Plan Assessment/Plan Additional Assessment/Plan Additional Assessment/Plan IMPRESSION: 1. Biliary obstruction. Status post biliary stent, bilirubin is now going up, radiologist needs to evaluate biliary drain 2. Gram negative bacteremia, either from the urine or from the biliary system. 3. 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 4. 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 Gastric outlet obstruction secondary to tumor growing over the proximal part of the metallic stent in the duodenum. 6. Aspiration pneumonia 7. Renal failure, it is multifactorial 8. UTI with Pseudomonas and Hcelsy in the urine, E. coli in the blood 9. 4+ pedal edema, fluid overload 10. Respiratory failure successfully extubated Plan Continue NG tube to intermittent suction since the Patient has got gastric outlet obstruction. Biliary obstruction status post plastic biliary stent both external and internal Respiratory failure patient is on vent Continue antibiotic When patient is more stable will place another duodenal stent. Patient is not a candidate for surgical bypass ID follow-up Continue dialysis Monitor liver function if bilirubin keeps going up and radiologist needs to evaluate biliary drainage TPN Sonogram of the liver, revealed fatty liver no obstruction Cholangiogram done yesterday on 07/22/2016 showed complete obstruction of the distal part of the bile duct. Patient bilirubin is going up due to the obstruction. His prognosis remains poor. external biliary catheter connected to bag , Consultation Date/Type/Reason Admit Date/Time Jun 30, 2016 at 15:42 Initial Consult Date 06/30/16 Type of Consultation: ID Referring Provider: GAMALIEL HAIR MD 24 HR Interval Summary Subjective hx not possible: pt critical Exam/Review of Systems Vital Signs Vitals Vital Signs Date Time Temp Pulse Resp B/P Pulse Ox O2 Delivery O2 Flow Rate FiO2 07/24/16 20:06 98.5 106 18 83/62 94 07/24/16 17:01 40 07/24/16 08:20 3.0 07/24/16 08:00 Nasal Cannula Intake and Output 07/23/16 07/23/16 07/24/16 15:00 23:00 07:00 Intake Total 220 ml 720 ml 660 ml Output Total 85 ml 190 ml 30 ml Balance 135 ml 530 ml 630 ml Exam Constitutional: alert, oriented, well developed Psych: nl mood/affect, no complaints Head: atraumatic, normocephalic Eyes: EOMI, PERRL, nl conjunctiva, nl lids, nl sclera ENMT: nl external ears & nose, nl lips & teeth, nl nasal mucosa & septum Neck: non-tender, supple Respiratory: clear to auscultation, normal air movement Cardiovascular: nl pulses, regular rate and rhythm Gastrointestinal: nl liver, spleen, non-tender, soft Musculoskeletal: nl extremities to inspection, nl gait and stance Extremities: normal pulses Neurological: BLASTING GANG MINER II-XII intact, nl mental status, nl speech, nl strength Skin: nl turgor, No rash or lesions Lymph: nl lymph nodes Results Result Diagram: 07/24/1646 07/24/1646 Results 24 hrs Laboratory Tests Test 07/24/16 01:11 07/24/16 05:41 07/24/16 05:46 07/24/16 08:10 Bedside Glucose 159 144 160 White Blood Count 19.3 H Red Blood Count 3.37 L Hemoglobin 10.2 L Hematocrit 30.3 L Mean Corpuscular Volume 89.9 Mean Corpuscular Hemoglobin 30.3 Mean Corpuscular Hemoglobin Concent 33.7 Red Cell Distribution Width 19.0 H Platelet Count 61 L Mean Platelet Volume Neutrophils % 96.0 H Monocytes % 1.0 Eosinophils % 1.0 Metamyelocytes % 1.0 H Myelocytes % 1.0 H Nucleated Red Blood Cells % 1.0 H Neutrophils # 18.5 H Monocytes # 0.2 L Eosinophils # 0.2 Metamyelocytes # 0.2 Myelocytes # 0.2 Differential Comment MANUAL DIFF Platelet Estimate PLT APPEAR DECREASED Sodium Level 139 Potassium Level 4.0 Chloride Level 106 Carbon Dioxide Level 20 L Anion Gap 17 H Blood Urea Nitrogen 76 H Creatinine 3.23 H Glucose Level 170 Calcium Level 8.5 Phosphorus Level 4.4 Magnesium Level 2.3 Total Bilirubin 7.1 H Direct Bilirubin 6.30 H Indirect Bilirubin 0.8 Aspartate Amino Transf (AST/SGOT) 95 #H Alanine Aminotransferase (ALT/SGPT) 62 Alkaline Phosphatase 146 H Total Protein 5.2 L Albumin 2.5 L Test 07/24/16 12:33 07/24/16 17:33 Bedside Glucose 170 175 Medications Medications Current Medications Ondansetron HCl (Zofran Inj) 4 mg Q6H PRN IV NAUSEA AND/OR VOMITING Last administered on 07/24/16 04:11; Admin Dose 4 MG; Start 06/30/16 at 16:30 Acetaminophen (Tylenol Tab) 650 mg Q6H PRN PO PAIN LEVEL 1-3 OR FEVER Last administered on 07/05/16 19:31; Admin Dose 650 MG; Start 06/30/16 at 16:30 Acetaminophen (Tylenol Supp) 650 mg Q6H PRN IN PAIN LEVEL 1-3 OR FEVER; Start 06/30/16 at 16:30 Acetaminophen/ Hydrocodone Bitart (Jbph[place] (5/325)) 1 tab Q6H PRN PO MODERATE PAIN LEVEL 4-6 Last administered on 07/18/16 00:29; Admin Dose 1 TAB; Start at 16:30 Acetaminophen/ Hydrocodone Bitart ([place]bph[place] (5/325)) 2 tab Q6H PRN PO SEVERE PAIN LEVEL 7-10 Last administered on 07/10/16 13:15; Admin Dose 2 TAB; Start at 16:30 Docusate Sodium (Colace) 100 mg Q12H PRN PO CONSTIPATION; Start 06/30/16 at 16: 30 Magnesium Hydroxide (Milk Of Mag) 30 ml DAILY PRN PO CONSTIPATION; Start at 16:30 Bisacodyl (Dulcolax Supp) 10 mg DAILY PRN IN CONSTIPATION; Start 06/30/16 at 16 :30 Pantoprazole 40 mg 40 mg DAILY@06 IV Last administered on 07/24/16 05:42; Admin Dose 40 MG; Start 07/01/16 at 06:00 Erythromycin Lactobionate/ Sodium Chloride (Erythromycin Lactobionate/NS) 100 ml @ 100 mls/hr Q6 IVPB Last administered on 07/24/16 17:37; Admin Dose 100 MLS/HR; Start 07/09/16 at 00:00 Albuterol (Ventolin Hfa) 2 puff Q4H PRN INH SHORTNESS OF BREATH Last administered on 07/20/16 08:56; Admin Dose 2 PUFF; Start 07/14/16 at 22:00 Ipratropium [place] (Atrovent Hfa) 4 puff Q4H PRN INH SHORTNESS OF BREATH Last administered on 07/20/16 08:55; Admin Dose 4 PUFF; Start 07/14/16 at 22:00 Metoclopramide HCl (Reglan) 5 mg Q8 IV Last administered on 07/24/16 14:49; Admin Dose 5 MG; Start 07/18/16 at 22:00 Diagnostic Test (Pha) 1 ea 1 ea Q4 XX Last administered on 07/24/16 17:37; Admin Dose 1 EA; Start 07/19/16 at 13:00 Total Parenteral Nutrition (Tpn) 1,000 ml @ 30 mls/hr Q24H IV Last administered on 07/24/16 16:01; Admin Dose 30 MLS/HR; Start 07/19/16 at 14:00 Morphine Sulfate 4 mg 4 mg Q4H PRN IV SEVERE PAIN LEVEL 7-10 Last administered on 07/24/16 10:26; Admin Dose 4 MG; Start 07/22/16 at 16:30 Linezolid 300 ml @ 300 mls/hr Q12 IVPB ; Start 07/24/16 at 21:00 Metronidazole 250 mg/N/A 50 ml @ 50 mls/hr Q8 IVPB ; Start 07/24/16 at 22:00 Trimethoprim/ Sulfamethoxazole/ Dextrose (Bactrim/D5W) 525 ml @ 350 mls/hr Q24H IVPB ; Start 07/25/16 at 14:00 TIANNA SALINAS MD July 24, 2016 20:31
[2016-07-24] MEDS: LINEZOLID 600 MG/D5W (PMX) 300 ML IVPB SCH (20:32)
[2016-07-24] MEDS: metroNIDAZOLE 500 MG/NS (PMX) 250 MG in EVAC CONTAINER 1 BOTTLE IVPB SCH (23:01)
[2016-07-25] VITALS (30 sets, daily range): BP systolic 73–127; BP diastolic 50–75; PULSE 11–120; RESP 18–21
[2016-07-25] MEDS: ACCU-CHEK XX SCH ×6 (01:00→21:00)
--- NOTE | 2016-07-25 01:04 | PN ---
Date/Time of Note Date/Time of Note DATE: 07/23/16 TIME: 22:02 Assessment/Plan Lines/Catheters IV Catheter Type (from [facility]): JORDY CATH [place] in Place (from [facility]): Yes Assessment/Plan Chief Complaint/Hosp Course 1. Sepsis 2nd biliary obstruction s/p attempted unsuccessful ERCP 07/03. s/p PTC 07/05. s/p EGD showing tumor growing over stent and causing obstruction 07/12. Aspiration pneumonia s/p intubation 07/12 and now extubation 07/20. -abx -ivf -ngt -supportive care -Drain -Chemo [place] after infection controlled 2. Transaminitis with Hyperbilirubinemia ? 2nd biliary obstruction ? 2nd tumor s /p PTC 07/05 -as above 3. Metastatic Urothelial cancer with ? carcinomatosis -heme/onc for tx after sepsis resolution 4. Hx obstructed duodenum with gastric outlet obstruction s/p duodenal stent. Now with hiccups and difficulty eating. s/p EGD showing tumor growing over stent and causing obstruction 07/12 -NGT -Chemo [place] if possible 5. Steatosis -Eventual nutrition and lifestyle optimization 6. Weight loss probably secondary to above -As above Thank you, Late entry 07/23 Problems: Subjective 24 Hr Interval Summary No f/c. No cough. No seizure. No blood per mouth/rectum. No bloating. No rashes. No vomiting. Exam/Review of Systems Vital Signs Vitals Vital Signs Date Time Temp Pulse Resp B/P Pulse Ox O2 Delivery O2 Flow Rate FiO2 07/25/16 00:02 98.6 109 19 111/72 96 07/24/16 23:15 6.0 07/24/16 21:25 40 07/24/16 21:00 BIPAP Intake and Output 07/24/16 07/24/16 07/25/16 15:00 23:00 07:00 Output Total 10 ml Balance -10 ml Exam Free Text/Dictation Constitutional: Uncomfortable Psych: Anxious Head: atraumatic, normocephalic Eyes: EOMI, PERRL, nl conjunctiva, icterus ENMT: mucosa pink and moist, nl external ears & nose, nl lips & teeth Neck: non-tender, supple, No jvd, No masses Respiratory: No wheezing. Min crackles. Cardiovascular: S1S2, tachy, no edema Gastrointestinal: NT, soft, No distended, No rebound or guarding Genitourinary - Male: nl scrotum Musculoskeletal: nl extremities to inspection, nl gait and stance, No joint tenderness Extremities: normal pulses, No calf tenderness, No cyanosis Neurological: nl mental status, nl speech, nl strength Skin: nl turgor, jaundice. No diaphoresis, No rash or lesions Lymph: No nl lymph nodes (Inguinal) Results Result Diagram: 07/24/16 0546 07/24/16 0546 DIAMOND FITZGERALD MD July 25, 2016 01:04
--- NOTE | 2016-07-25 01:04 | PN ---
Date/Time of Note Date/Time of Note DATE: 07/24/16 TIME: 17:04 Assessment/Plan Lines/Catheters IV Catheter Type (from [facility]): JORDY CATH [place] in Place (from [facility]): Yes Assessment/Plan Chief Complaint/Hosp Course 1. Sepsis 2nd biliary obstruction s/p attempted unsuccessful ERCP 07/03. s/p PTC 07/05. s/p EGD showing tumor growing over stent and causing obstruction 07/12. Aspiration pneumonia s/p intubation 07/12 and now extubation 07/20. -abx -ivf -ngt -supportive care -Drain -Chemo [place] after infection controlled 2. Transaminitis with Hyperbilirubinemia ? 2nd biliary obstruction ? 2nd tumor s /p PTC 07/05 -as above 3. Metastatic Urothelial cancer with ? carcinomatosis -heme/onc for tx after sepsis resolution 4. Hx obstructed duodenum with gastric outlet obstruction s/p duodenal stent. Now with hiccups and difficulty eating. s/p EGD showing tumor growing over stent and causing obstruction 07/12 -NGT -Chemo [place] if possible 5. Steatosis -Eventual nutrition and lifestyle optimization 6. Weight loss probably secondary to above -As above Thank you, Late entry 07/24 Problems: Subjective 24 Hr Interval Summary No f/c. No cough. No seizure. No blood per mouth/rectum. No bloating. No rashes. No vomiting. Exam/Review of Systems Vital Signs Vitals Vital Signs Date Time Temp Pulse Resp B/P Pulse Ox O2 Delivery O2 Flow Rate FiO2 07/25/16 00:02 98.6 109 19 111/72 96 07/24/16 23:15 6.0 07/24/16 21:25 40 07/24/16 21:00 BIPAP Intake and Output 07/24/16 07/24/16 07/25/16 15:00 23:00 07:00 Output Total 10 ml Balance -10 ml Exam Free Text/Dictation Constitutional: Uncomfortable Psych: Anxious Head: atraumatic, normocephalic Eyes: EOMI, PERRL, nl conjunctiva, icterus ENMT: mucosa pink and moist, nl external ears & nose, nl lips & teeth Neck: non-tender, supple, No jvd, No masses Respiratory: No wheezing. Min crackles. Cardiovascular: S1S2, tachy, no edema Gastrointestinal: NT, soft, No distended, No rebound or guarding Genitourinary - Male: nl scrotum Musculoskeletal: nl extremities to inspection, nl gait and stance, No joint tenderness Extremities: normal pulses, No calf tenderness, No cyanosis Neurological: nl mental status, nl speech, nl strength Skin: nl turgor, jaundice. No diaphoresis, No rash or lesions Lymph: No nl lymph nodes (Inguinal) Results Result Diagram: 07/24/16 0546 07/24/16 0546 DIAMOND FITZGERALD MD July 25, 2016 01:04
[2016-07-25] MEDS: ERYTHROMYCIN LACTOBIONATE 250 MG in SOD CHLORIDE 0.9% 100 ML IVPB SCH ×4 (01:29→18:01)
[2016-07-25] MEDS: ONDANSETRON 4 MG INJ IV PRN ×4 (02:11→21:58)
[2016-07-25] MEDS: morphine 4 MG/ML VIAL IV PRN ×3 (02:11→23:40)
[2016-07-25] MEDS ORDERED: SOD CHLORIDE 0.9% 250 ML IV ONE (04:30)
[2016-07-25] MEDS: metroNIDAZOLE 500 MG/NS (PMX) 250 MG in EVAC CONTAINER 1 BOTTLE IVPB SCH ×3 (05:22→21:14)
[2016-07-25] MEDS: METOCLOPRAMIDE 10 MG INJ IV SCH ×3 (05:22→21:13)
[2016-07-25] MEDS: PANTOPRAZOLE 40 MG INJ IV SCH (05:22)
[2016-07-25] MEDS: ALBUMIN HUMAN 25% 100 ML IV SCH ×2 (06:02→12:18)
[2016-07-25 07:45] LABS: ADD SCAN DIFF NO
[2016-07-25 07:51] LABS: ABNORMAL IP MESSAGE 1; BASOPHILS % 0.1 % (0.0-2.0); EOSINOPHILS % 0.1 % (0.0-7.0); HEMATOCRIT 33.7 % (42.0-52.0); HEMOGLOBIN 11.2 g/dl (14.0-18.0); LYMPHOCYTES # 0.6 10^3/ul (0.8-2.9); LYMPHOCYTES % 2.9 % (15.0-51.0); MEAN CORPUSCULAR HEMOGLOBIN 29.8 pg (29.0-33.0); MEAN CORPUSCULAR HGB CONC 33.2 g/dl (32.0-37.0); MEAN CORPUSCULAR VOLUME 89.6 fl (82.0-101.0); MEAN PLATELET VOLUME 12.8 fl (7.4-10.4); MONOCYTE # 0.4 10^3/ul (0.3-0.9); MONOCYTES % 1.8 % (0.0-11.0); NEUTROPHIL # 17.9 10^3/ul (1.6-7.5); NEUTROPHILS % 91.9 % (39.0-77.0); NUCLEATED RED BLOOD CELLS% 0.2 /100WBC (0.0-0.0); PLATELET COUNT 68 10^3/UL (140-415); RED BLOOD COUNT 3.76 10^6/ul (4.70-6.10); RED CELL DISTRIBUTION WIDTH 19.3 % (11.5-14.5); WHITE BLOOD COUNT 19.4 10^3/ul (4.8-10.8)
[2016-07-25 08:08] LABS: ALBUMIN 2.5 g/dl (3.3-4.9); BILIRUBIN,DIRECT 7.7 mg/dl (0.00-0.20); BILIRUBIN,INDIRECT 0.6 mg/dl (0-1.1); BILIRUBIN,TOTAL 8.3 mg/dl (0.2-1.3)
[2016-07-25 08:11] LABS: PLATELET COUNT 68 10^3/UL (140-440)
[2016-07-25 08:12] LABS: ALBUMIN 2.6 g/dl (3.3-4.9); CALCIUM 8.7 mg/dl (8.4-10.2); PHOSPHORUS 4.8 mg/dl (2.5-4.9); POTASSIUM 4.2 mmol/L (3.5-5.1)
[2016-07-25 08:15] LABS: INR 1.03; PROTIME 13.5 Sec (12.2-14.2); PT RATIO 1.1
[2016-07-25 08:16] LABS: PARTIAL THROMBOPLASTIN TIME 35.6 Sec (25.0-35.0)
[2016-07-25 08:17] LABS: THROMBIN TIME 16.1 SEC (13.8-19.1)
[2016-07-25 08:46] LABS: CREATININE 3.69 mg/dl (0.61-1.24)
[2016-07-25] MEDS: LINEZOLID 600 MG/D5W (PMX) 300 ML IVPB SCH ×2 (09:02→21:12)
[2016-07-25 09:25] LABS: D-DIMER > 10000.00 ng/ml (<460)
--- NOTE | 2016-07-25 11:09 | CONS ---
Date/Time of Note Date/Time of Note DATE: 07/25/16 TIME: 11:07 Assessment/Plan Assessment/Plan Additional Assessment/Plan Assessment and recommendations; 1. Patient admitted for gastric outlet obstruction, underwent EGD with ensuing left-sided aspiration pneumonia causing respiratory failure. Extubated several days ago. 2. 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 3. Renal failure, on hemodialysis. 4. Biliary obstruction, status post ERCP. Patient with persistent hyperbilirubinemia. 5. Respiratory failure, on BiPAP. Next Continue current treatment. Prognosis is very poor. Consultation Date/Type/Reason Admit Date/Time Jun 30, 2016 at 15:42 Initial Consult Date 07/12/16 Type of Consultation: Pulmonary Referring Provider: GAMALIEL HAIR MD 24 HR Interval Summary Free Text/Dictation Patient's condition remains tenuous at best. Requiring continuous BiPAP. Patient is awake and alert. And does not appear to be in any distress but appears mildly anxious. General exam; elderly male, currently in no distress. Exam/Review of Systems Vital Signs Vitals Vital Signs Date Time Temp Pulse Resp B/P Pulse Ox O2 Delivery O2 Flow Rate FiO2 07/25/16 09:20 104 94 40 07/25/16 08:45 91/52 07/25/16 06:57 98.1 20 07/25/16 04:23 BIPAP 07/25/16 03:55 6.0 Intake and Output 07/24/16 07/24/16 07/25/16 15:00 23:00 07:00 Intake Total 0 ml Output Total 10 ml 25 ml Balance -10 ml -25 ml Exam HEENT examination; supple neck, no JVD. No lymphadenopathy. Midline trachea. No thyromegaly. Chest examined; bilateral crackles. S1-S2 audible, no murmurs. Regular rhythm. Abdomen exam is; distended. Tense. Bowel sounds are very sluggish. Extremity exam is; trace edema. [employer]ISH[employer] FR[employer] INSPECTOR examination; no focal deficit. Results Result Diagram: 07/25/16 0615 07/25/16 0615 Results 24 hrs Laboratory Tests Test 07/24/16 12:33 07/24/16 17:33 07/24/16 21:08 07/25/16 01:28 Bedside Glucose 170 175 170 177 Test 07/25/16 05:06 07/25/16 06:15 07/25/16 09:01 Bedside Glucose 182 176 White Blood Count 19.4 H Red Blood Count 3.76 L Hemoglobin 11.2 L Hematocrit 33.7 L Mean Corpuscular Volume 89.6 Mean Corpuscular Hemoglobin 29.8 Mean Corpuscular Hemoglobin Concent 33.2 Red Cell Distribution Width 19.3 H Platelet Count 68 L Mean Platelet Volume 12.8 H Neutrophils % 91.9 H Lymphocytes % 2.9 L Monocytes % 1.8 Eosinophils % 0.1 Basophils % 0.1 Nucleated Red Blood Cells % 0.2 H Neutrophils # 17.9 H Lymphocytes # 0.6 L Monocytes # 0.4 Eosinophils # 0.0 Basophils # 0.0 Nucleated Red Blood Cells # 0.0 Prothrombin Time 13.5 Prothrombin Time Ratio 1.1 INR International Normalized Ratio 1.03 Activated Partial Thromboplast Time 35.6 H Thrombin Time 16.1 Fibrinogen 517.0 #H Plasma Fibrin Degradation Products Pending D-Dimer > 21144.00 H Sodium Level 137 Potassium Level 4.2 Chloride Level 105 Carbon Dioxide Level 18 L Anion Gap 18 H Blood Urea Nitrogen 88 H Creatinine 3.69 H Glucose Level 156 Calcium Level 8.7 Phosphorus Level 4.8 Total Bilirubin 8.3 H Direct Bilirubin 7.70 H Indirect Bilirubin 0.6 Aspartate Amino Transf (AST/SGOT) 147 #H Alanine Aminotransferase (ALT/SGPT) 97 H Alkaline Phosphatase 159 H Total Protein 5.0 L Albumin 2.5 L Medications Medications Current Medications Ondansetron HCl (Zofran Inj) 4 mg Q6H PRN IV NAUSEA AND/OR VOMITING Last administered on 07/25/16 02:11; Admin Dose 4 MG; Start 06/30/16 at 16:30 Acetaminophen (Tylenol Tab) 650 mg Q6H PRN PO PAIN LEVEL 1-3 OR FEVER Last administered on 07/05/16 19:31; Admin Dose 650 MG; Start 06/30/16 at 16:30 Acetaminophen (Tylenol Supp) 650 mg Q6H PRN ID PAIN LEVEL 1-3 OR FEVER; Start 06/30/16 at 16:30 Acetaminophen/ Hydrocodone Bitart ([place] (5/325)) 1 tab Q6H PRN PO MODERATE PAIN LEVEL 4-6 Last administered on 07/18/16 00:29; Admin Dose 1 TAB; Start at 16:30 Acetaminophen/ Hydrocodone Bitart ([place] (5/325)) 2 tab Q6H PRN PO SEVERE PAIN LEVEL 7-10 Last administered on 07/10/16 13:15; Admin Dose 2 TAB; Start at 16:30 Docusate Sodium (Colace) 100 mg Q12H PRN PO CONSTIPATION; Start 06/30/16 at 16: 30 Magnesium Hydroxide (Milk Of Mag) 30 ml DAILY PRN PO CONSTIPATION; Start at 16:30 Bisacodyl (Dulcolax Supp) 10 mg DAILY PRN ID CONSTIPATION; Start 06/30/16 at 16 :30 Pantoprazole 40 mg 40 mg DAILY@06 IV Last administered on 07/25/16 05:22; Admin Dose 40 MG; Start 07/01/16 at 06:00 Erythromycin Lactobionate/ Sodium Chloride (Erythromycin Lactobionate/NS) 100 ml @ 100 mls/hr Q6 IVPB Last administered on 07/25/16 07:15; Admin Dose 100 MLS/HR; Start 07/09/16 at 00:00 Albuterol (Ventolin Hfa) 2 puff Q4H PRN INH SHORTNESS OF BREATH Last administered on 07/20/16 08:56; Admin Dose 2 PUFF; Start 07/14/16 at 22:00 Ipratropium [place] (Atrovent Hfa) 4 puff Q4H PRN INH SHORTNESS OF BREATH Last administered on 07/20/16 08:55; Admin Dose 4 PUFF; Start 07/14/16 at 22:00 Metoclopramide HCl (Reglan) 5 mg Q8 IV Last administered on 07/25/16 05:22; Admin Dose 5 MG; Start 07/18/16 at 22:00 Diagnostic Test (Pha) 1 ea 1 ea Q4 XX Last administered on 07/24/16 17:37; Admin Dose 1 EA; Start 07/19/16 at 13:00 Total Parenteral Nutrition (Tpn) 1,000 ml @ 30 mls/hr Q24H IV Last administered on 07/24/16 16:01; Admin Dose 30 MLS/HR; Start 07/19/16 at 14:00 Morphine Sulfate 4 mg 4 mg Q4H PRN IV SEVERE PAIN LEVEL 7-10 Last administered on 07/25/16 08:26; Admin Dose 4 MG; Start 07/22/16 at 16:30 Linezolid 300 ml @ 300 mls/hr Q12 IVPB Last administered on 07/25/16 09:02; Admin Dose 300 MLS/HR; Start 07/24/16 at 21:00 Metronidazole 250 mg/N/A 50 ml @ 50 mls/hr Q8 IVPB Last administered on 05:22; Admin Dose 50 MLS/HR; Start 07/24/16 at 22:00 Trimethoprim/ Sulfamethoxazole 25 ml/Dextrose 525 ml @ 350 mls/hr Q24H IVPB ; Start 07/25/16 at 14:00 Albumin Human (Albumin Human 25%) 100 ml @ 100 mls/hr Q8H IV Last administered on 07/25/16 06:02; Admin Dose 100 MLS/HR; Start 07/25/16 at 05:30 ; Stop 07/25/16 at 14:[address] July 25, 2016 11:09
--- NOTE | 2016-07-25 11:10 | PN ---
Date/Time of Note Date/Time of Note DATE: 07/25/16 TIME: 11:06 Assessment/Plan Lines/Catheters IV Catheter Type (from [facility]): deja [place] in Place (from [facility]): Yes Assessment/Plan Chief Complaint/Hosp Course 1. Sepsis 2nd biliary obstruction s/p attempted unsuccessful ERCP 07/03. s/p PTC 07/05. s/p EGD showing tumor growing over stent and causing obstruction 07/12. Aspiration pneumonia s/p intubation 07/12 and now extubation 07/20. Cholangiogram with obstructed CBD. -abx -ivf -ngt -supportive care -Drain -Chemo per onc when possible 2. Transaminitis with Hyperbilirubinemia ? 2nd biliary obstruction ? 2nd tumor s /p PTC 07/05 -as above 3. Metastatic Urothelial cancer with ? carcinomatosis -heme/onc for tx after sepsis resolution 4. Hx obstructed duodenum with gastric outlet obstruction s/p duodenal stent. Now with hiccups and difficulty eating. s/p EGD showing tumor growing over stent and causing obstruction 07/12 -NGT -Chemo [place] if possible 5. Steatosis -Eventual nutrition and lifestyle optimization 6. Weight loss probably secondary to above -As above Thank you, Problems: Subjective 24 Hr Interval Summary Cholangiogram noted. No f/c. No cough. No seizure. No blood per mouth/ rectum. No bloating. No rashes. No vomiting. Exam/Review of Systems Vital Signs Vitals Vital Signs Date Time Temp Pulse Resp B/P Pulse Ox O2 Delivery O2 Flow Rate FiO2 07/25/16 09:20 104 94 40 07/25/16 08:45 91/52 07/25/16 06:57 98.1 20 07/25/16 04:23 BIPAP 07/25/16 03:55 6.0 Intake and Output 07/24/16 07/24/16 07/25/16 15:00 23:00 07:00 Intake Total 0 ml Output Total 10 ml 25 ml Balance -10 ml -25 ml Exam Free Text/Dictation Constitutional: Uncomfortable Psych: Anxious Head: atraumatic, normocephalic Eyes: EOMI, PERRL, nl conjunctiva, icterus ENMT: mucosa pink and moist, nl external ears & nose, nl lips & teeth Neck: non-tender, supple, No jvd, No masses Respiratory: No wheezing. Min crackles. Cardiovascular: S1S2, tachy, no edema Gastrointestinal: NT, soft, No distended, No rebound or guarding Genitourinary - Male: nl scrotum Musculoskeletal: nl extremities to inspection, nl gait and stance, No joint tenderness Extremities: normal pulses, No calf tenderness, No cyanosis Neurological: nl mental status, nl speech, nl strength Skin: nl turgor, jaundice. No diaphoresis, No rash or lesions Lymph: No nl lymph nodes (Inguinal) Results Free Text/Dictation Cholangiogram: 1. The biliary drainage catheter remains in satisfactory position. 2. Severe obstruction of the distal common bile duct due to the duodenal mass. 3. As seen previously, there is marked narrowing of the duodenum despite the presence of the metallic stent. Result Diagram: 07/25/16 0615 07/25/16 0615 DIAMOND FITZGERALD MD July 25, 2016 11:10
--- NOTE | 2016-07-25 11:14 | CONS ---
Date/Time of Note Date/Time of Note DATE: 07/25/16 TIME: 11:13 Assessment/Plan Assessment/Plan Chief Complaint/Hosp Course 60 year old male with metastatic urothelial cancer who had presented during the last admission with gastric outlet obstruction status post duodenal stent . Has since been diagnosed with metastatic urothelial cancer. Patient now readmitted with sepsis with abdominal pain. He is currently in critical condition, intubated in the ICU # metastatic urothelial cancer - CT A/P demonstrates infiltrative neoplasm involving the cecum, ascending colon and hepatic flexure with extension of tumor to the serosa involving the lateral wall of the duodenum. This has advanced as compared to 05/27/2016. - I had planned to start gemcitabine 1000 mg/m2 D1, 8 and carboplatin AUC 4.5 D1 however needed to wait till bacteremia adequately treated and now patient with left lung aspiration pneumonia. Patient extubated 07/20/16. Given rapidly growing tumor, would want to start chemo ISSA when patient more stable, more ambulatory, infection adequately controlled and thrombocytopenia and hyperbilirubinemia improved. Would then need to start gemcitabine/carboplatin with dose adjustments depending on renal and hepatic function. Would use 50% of dose of carboplatin in ESRD on HD; would advise HD 6-12 hours after gemcitabine given with caution due to hyperbilirubinemia with initial dose 800 mg/m2. - discussed with Dr. De, duodenal stent obstructed by tumor, status post new internal biliary catheter 07/11/16. Plan for new duodenal stent when more stable. - Dr. Nolan to arrange for POLST form to be filled out - Hg has improved after blood transfusion and is now > 10 # Leukocytosis and thrombocytopenia, concerning for sepsis - WBC now 20K, Plt down to 60s. DIC panel not consistent with DIC. Concerning for sepsis. - Appreciate ID recs. Patient on fluconazole, bactrim, zyvox, flagyl. - Peripheral smear reviewed by pathology, showed increased wbcs, left shifted, bands, no blasts, no dysplastic features, no schistocytes, no leukoerythroblastic process # Elevated D-dimer > 10,000. Upper and lower extremity dopplers negative for DVT 07/21/16. # E. coli bacteremia - with sepsis secondary to biliary obstruction s/p attempted unsuccessful ERCP 07/03, s/p external percutaneous biliary drainage 07/05 - Last blood cultures were clear from 07/05/16 - will hold on removing the port for now. If ID feels it is necessary to remove and if bacteremia does not clear, will remove at that time # Biliary obstruction - s/p percutaneous biliary drain and status post new biliary catheter 07/11/16 - status post EGD that demonstrated gastric outlet obstruction with tumor growing over stent and almost complete obstructing lumen. - Now Bilirubin up to 7.8, plan for another biliary stent when more stable per GI. Cholangiogram 07/22/16 demonstrated 1. The biliary drainage catheter remains in satisfactory position. 2. Severe obstruction of the distal common bile duct due to the duodenal mass. 3. As seen previously, there is marked narrowing of the duodenum despite the presence of the metallic stent. - US Abdomen 07/19/16 demonstrated mild fatty infiltration of liver, new moderate ascites, mildly dilated CBD, 8 mm, decreased - Biliary fluid culture +stenotrophomonas, VRE, appreciate ID recs, patient on fluconazole, bactrim, zyvox, flagyl. # Diabetic Gastroparesis - cont reglan; erythromycin added as prokinetic agent per GI - on TPN # CHARITY - Acute kidney injury secondary to acute tubular necrosis from septic shock and also contributing vancomycin - cont HD per renal Problems: Consultation Date/Type/Reason Admit Date/Time Jun 30, 2016 at 15:42 Initial Consult Date 06/30/16 Type of Consultation: Oncology Referring Provider: GAMALIEL HAIR MD 24 HR Interval Summary Free Text/Dictation Patient remains on BiPAP. Exam/Review of Systems Vital Signs Vitals Vital Signs Date Time Temp Pulse Resp B/P Pulse Ox O2 Delivery O2 Flow Rate FiO2 07/25/16 09:20 104 94 40 07/25/16 08:45 91/52 07/25/16 06:57 98.1 20 07/25/16 04:23 BIPAP 07/25/16 03:55 6.0 Intake and Output 07/24/16 07/24/16 07/25/16 15:00 23:00 07:00 Intake Total 0 ml Output Total 10 ml 25 ml Balance -10 ml -25 ml Exam Constitutional: on BiPAP Respiratory: bibasilar crackles , no wheezing, labored breathing Cardiovascular: regular rate and rhythm Gastrointestinal: soft, No distended Musculoskeletal: nl extremities to inspection + deja HD catheter Results Result Diagram: 07/25/16 0615 07/25/16 0615 Results 24 hrs Laboratory Tests Test 07/24/16 12:33 07/24/16 17:33 07/24/16 21:08 07/25/16 01:28 Bedside Glucose 170 175 170 177 Test 07/25/16 05:06 07/25/16 06:15 07/25/16 09:01 Bedside Glucose 182 176 White Blood Count 19.4 H Red Blood Count 3.76 L Hemoglobin 11.2 L Hematocrit 33.7 L Mean Corpuscular Volume 89.6 Mean Corpuscular Hemoglobin 29.8 Mean Corpuscular Hemoglobin Concent 33.2 Red Cell Distribution Width 19.3 H Platelet Count 68 L Mean Platelet Volume 12.8 H Neutrophils % 91.9 H Lymphocytes % 2.9 L Monocytes % 1.8 Eosinophils % 0.1 Basophils % 0.1 Nucleated Red Blood Cells % 0.2 H Neutrophils # 17.9 H Lymphocytes # 0.6 L Monocytes # 0.4 Eosinophils # 0.0 Basophils # 0.0 Nucleated Red Blood Cells # 0.0 Prothrombin Time 13.5 Prothrombin Time Ratio 1.1 INR International Normalized Ratio 1.03 Activated Partial Thromboplast Time 35.6 H Thrombin Time 16.1 Fibrinogen 517.0 #H Plasma Fibrin Degradation Products Pending D-Dimer > 12630.00 H Sodium Level 137 Potassium Level 4.2 Chloride Level 105 Carbon Dioxide Level 18 L Anion Gap 18 H Blood Urea Nitrogen 88 H Creatinine 3.69 H Glucose Level 156 Calcium Level 8.7 Phosphorus Level 4.8 Total Bilirubin 8.3 H Direct Bilirubin 7.70 H Indirect Bilirubin 0.6 Aspartate Amino Transf (AST/SGOT) 147 #H Alanine Aminotransferase (ALT/SGPT) 97 H Alkaline Phosphatase 159 H Total Protein 5.0 L Albumin 2.5 L Medications Medications Current Medications Ondansetron HCl (Zofran Inj) 4 mg Q6H PRN IV NAUSEA AND/OR VOMITING Last administered on 07/25/16 02:11; Admin Dose 4 MG; Start 06/30/16 at 16:30 Acetaminophen (Tylenol Tab) 650 mg Q6H PRN PO PAIN LEVEL 1-3 OR FEVER Last administered on 07/05/16 19:31; Admin Dose 650 MG; Start 06/30/16 at 16:30 Acetaminophen (Tylenol Supp) 650 mg Q6H PRN [place] PAIN LEVEL 1-3 OR FEVER; Start 06/30/16 at 16:30 Acetaminophen/ Hydrocodone Bitart ([place] (5/325)) 1 tab Q6H PRN PO MODERATE PAIN LEVEL 4-6 Last administered on 07/18/16 00:29; Admin Dose 1 TAB; Start at 16:30 Acetaminophen/ Hydrocodone Bitart ([place] (5/325)) 2 tab Q6H PRN PO SEVERE PAIN LEVEL 7-10 Last administered on 07/10/16 13:15; Admin Dose 2 TAB; Start at 16:30 Docusate Sodium (Colace) 100 mg Q12H PRN PO CONSTIPATION; Start 06/30/16 at 16: 30 Magnesium Hydroxide (Milk Of Mag) 30 ml DAILY PRN PO CONSTIPATION; Start at 16:30 Bisacodyl (Dulcolax Supp) 10 mg DAILY PRN [place] CONSTIPATION; Start 06/30/16 at 16 :30 Pantoprazole 40 mg 40 mg DAILY@06 IV Last administered on 07/25/16 05:22; Admin Dose 40 MG; Start 07/01/16 at 06:00 Erythromycin Lactobionate/ Sodium Chloride (Erythromycin Lactobionate/NS) 100 ml @ 100 mls/hr Q6 IVPB Last administered on 07/25/16 07:15; Admin Dose 100 MLS/HR; Start 07/09/16 at 00:00 Albuterol (Ventolin Hfa) 2 puff Q4H PRN INH SHORTNESS OF BREATH Last administered on 07/20/16 08:56; Admin Dose 2 PUFF; Start 07/14/16 at 22:00 Ipratropium [place] (Atrovent Hfa) 4 puff Q4H PRN INH SHORTNESS OF BREATH Last administered on 07/20/16 08:55; Admin Dose 4 PUFF; Start 07/14/16 at 22:00 Metoclopramide HCl (Reglan) 5 mg Q8 IV Last administered on 07/25/16 05:22; Admin Dose 5 MG; Start 07/18/16 at 22:00 Diagnostic Test (Pha) 1 ea 1 ea Q4 XX Last administered on 07/24/16 17:37; Admin Dose 1 EA; Start 07/19/16 at 13:00 Total Parenteral Nutrition (Tpn) 1,000 ml @ 30 mls/hr Q24H IV Last administered on 07/24/16 16:01; Admin Dose 30 MLS/HR; Start 07/19/16 at 14:00 Morphine Sulfate 4 mg 4 mg Q4H PRN IV SEVERE PAIN LEVEL 7-10 Last administered on 07/25/16 08:26; Admin Dose 4 MG; Start 07/22/16 at 16:30 Linezolid 300 ml @ 300 mls/hr Q12 IVPB Last administered on 07/25/16 09:02; Admin Dose 300 MLS/HR; Start 07/24/16 at 21:00 Metronidazole 250 mg/N/A 50 ml @ 50 mls/hr Q8 IVPB Last administered on 05:22; Admin Dose 50 MLS/HR; Start 07/24/16 at 22:00 Trimethoprim/ Sulfamethoxazole 25 ml/Dextrose 525 ml @ 350 mls/hr Q24H IVPB ; Start 07/25/16 at 14:00 Albumin Human (Albumin Human 25%) 100 ml @ 100 mls/hr Q8H IV Last administered on 07/25/16 06:02; Admin Dose 100 MLS/HR; Start 07/25/16 at 05:30 ; Stop 07/25/16 at 14:29 TODARBY MD July 25, 2016 11:14
--- NOTE | 2016-07-25 11:47 | PN ---
Date/Time of Note Date/Time of Note DATE: 07/25/16 TIME: 11:31 Assessment/Plan VTE Prophylaxis VTE Prophylaxis Intervention: contraindicated, SCD's, other VTE Contraindication Reason: thrombocytopenia Lines/Catheters IV Catheter Type (from Nrs): deja Urinary Cath still in place: Yes Reason Cath still needed: urinary retention Assessment/Plan Chief Complaint/Hosp Course Assessment/Plan: 60 year old male with metastatic uroepithelial cancer who had presented during the last admission with gastric outlet obstruction status post duodenal stent 06/02/16. Has since been diagnosed with metastatic urothelial cancer. Patient now readmitted with sepsis with abdominal pain. 1. Septic Shock 2/ Aspiration PNA : Now off pressors, leukocytosis worsening with bandemia. Biliary fluid cultures growing multiple organisms (MDR) . - Continue abx for bilateral pneumonia / infected biliary tract /possibly infected duodenal stent, f/u ID rec's - Overall condition is very unfortunate, patient's duodenal mass continues to pose a problem, however patient remains too unstable for chemotherapy or GI intervention - respiratory status also worsening, on BiPAP since last night, f/u pulm rec' s. 2. Transaminitis with Hyperbilirubinemia 2nd biliary obstruction from metastatic cancer - Status post radiologic evaluation of biliary catheter July / findings show catheter in good position, but common and bile duct blocked by duodenal mass. LFT's slightly more elevated today as well. - monitor LFT's, f/u GI rec's regarding any possible further procedures for biliary stent 3. Metastatic Urothelial cancer with possible carcinomatosis - CT A/P demonstrates infiltrative neoplasm involving the cecum, ascending colon and hepatic flexure with extension of tumor to the serosa involving the lateral wall of the duodenum. This has advanced as compared to 05/27/2016. - per heme/Onc, not a candidate for chemo at this time until more medically stable 4. Tumor Obstructed duodenum with gastric outlet obstruction s/p duodenal stent 06/02/16 and with new ERCP showing tumor eroding stent and completely obstructing lumen - see # 2, f/u Heme Onc and GI rec's 5. Steatosis - monitor LFT's 6. Acute Respiratory Failure secondary to aspiration pneumonia: Extubated , now on BiPAP 7. Acute kidney injury secondary to acute tubular necrosis from septic shock and also contributing vancomycin requiring HD - Continue HD for CHARITY and pulm fluid overload / status post albumin and Lasix 8. S/p ecoli bacteremia and pseudomonas UTI - abx, f/u ID rec's 9. Chelsy UTI - on fluconazole 10. TPN therapy - Continue TPN until patient is cleared for a diet /ice chips should be safe for now / strict aspiration precautions / NG tube to intermittent suction Problems: Subjective 24 Hr Interval Summary Free Text/Dictation Pt still on BiPAp since last night, also on TPN, seen by surg, pulm, Heme Onc teams. Awaiting HD. Exam/Review of Systems Vital Signs Vitals Vital Signs Date Time Temp Pulse Resp B/P Pulse Ox O2 Delivery O2 Flow Rate FiO2 07/25/16 11:16 98.1 104 21 102/64 96 07/25/16 09:20 40 07/25/16 04:23 BIPAP 07/25/16 03:55 6.0 Intake and Output 07/24/16 07/24/16 07/25/16 15:00 23:00 07:00 Intake Total 0 ml Output Total 10 ml 25 ml Balance -10 ml -25 ml Exam Constitutional: on BiPAP, in mild distress ENMT: icteric ++ Respiratory: clear to auscultation / diminished significantly on the right with coarse crackles on the left Cardiovascular: regular rate and rhythm Gastrointestinal: soft, biliary drainage still in place with minimal greenish drain No distended his office dysphagia Musculoskeletal: Daniel edema pitting / diffuse anasarca Neuro: no focal deficits Results Result Diagram: 07/25/16 0615 07/25/16 0615 Results 24 hrs Laboratory Tests Test 07/24/16 12:33 07/24/16 17:33 07/24/16 21:08 07/25/16 01:28 Bedside Glucose 170 175 170 177 Test 07/25/16 05:06 07/25/16 06:15 07/25/16 09:01 Bedside Glucose 182 176 White Blood Count 19.4 H Red Blood Count 3.76 L Hemoglobin 11.2 L Hematocrit 33.7 L Mean Corpuscular Volume 89.6 Mean Corpuscular Hemoglobin 29.8 Mean Corpuscular Hemoglobin Concent 33.2 Red Cell Distribution Width 19.3 H Platelet Count 68 L Mean Platelet Volume 12.8 H Neutrophils % 91.9 H Lymphocytes % 2.9 L Monocytes % 1.8 Eosinophils % 0.1 Basophils % 0.1 Nucleated Red Blood Cells % 0.2 H Neutrophils # 17.9 H Lymphocytes # 0.6 L Monocytes # 0.4 Eosinophils # 0.0 Basophils # 0.0 Nucleated Red Blood Cells # 0.0 Prothrombin Time 13.5 Prothrombin Time Ratio 1.1 INR International Normalized Ratio 1.03 Activated Partial Thromboplast Time 35.6 H Thrombin Time 16.1 Fibrinogen 517.0 #H Plasma Fibrin Degradation Products Pending D-Dimer > 10209.00 H Sodium Level 137 Potassium Level 4.2 Chloride Level 105 Carbon Dioxide Level 18 L Anion Gap 18 H Blood Urea Nitrogen 88 H Creatinine 3.69 H Glucose Level 156 Calcium Level 8.7 Phosphorus Level 4.8 Total Bilirubin 8.3 H Direct Bilirubin 7.70 H Indirect Bilirubin 0.6 Aspartate Amino Transf (AST/SGOT) 147 #H Alanine Aminotransferase (ALT/SGPT) 97 H Alkaline Phosphatase 159 H Total Protein 5.0 L Albumin 2.5 L Medications Medications Current Medications Ondansetron HCl (Zofran Inj) 4 mg Q6H PRN IV NAUSEA AND/OR VOMITING Last administered on 07/25/16 02:11; Admin Dose 4 MG; Start 06/30/16 at 16:30 Acetaminophen (Tylenol Tab) 650 mg Q6H PRN PO PAIN LEVEL 1-3 OR FEVER Last administered on 07/05/16 19:31; Admin Dose 650 MG; Start 06/30/16 at 16:30 Acetaminophen (Tylenol Supp) 650 mg Q6H PRN [place] PAIN LEVEL 1-3 OR FEVER; Start 06/30/16 at 16:30 Acetaminophen/ Hydrocodone Bitart ([place] (5/325)) 1 tab Q6H PRN PO MODERATE PAIN LEVEL 4-6 Last administered on 07/18/16 00:29; Admin Dose 1 TAB; Start at 16:30 Acetaminophen/ Hydrocodone Bitart ([place] (5/325)) 2 tab Q6H PRN PO SEVERE PAIN LEVEL 7-10 Last administered on 07/10/16 13:15; Admin Dose 2 TAB; Start at 16:30 Docusate Sodium (Colace) 100 mg Q12H PRN PO CONSTIPATION; Start 06/30/16 at 16: 30 Magnesium Hydroxide (Milk Of Mag) 30 ml DAILY PRN PO CONSTIPATION; Start at 16:30 Bisacodyl (Dulcolax Supp) 10 mg DAILY PRN [place] CONSTIPATION; Start 06/30/16 at 16 :30 Pantoprazole 40 mg 40 mg DAILY@06 IV Last administered on 07/25/16 05:22; Admin Dose 40 MG; Start 07/01/16 at 06:00 Erythromycin Lactobionate/ Sodium Chloride (Erythromycin Lactobionate/NS) 100 ml @ 100 mls/hr Q6 IVPB Last administered on 07/25/16 07:15; Admin Dose 100 MLS/HR; Start 07/09/16 at 00:00 Albuterol (Ventolin Hfa) 2 puff Q4H PRN INH SHORTNESS OF BREATH Last administered on 07/20/16 08:56; Admin Dose 2 PUFF; Start 07/14/16 at 22:00 Ipratropium [place] (Atrovent Hfa) 4 puff Q4H PRN INH SHORTNESS OF BREATH Last administered on 07/20/16 08:55; Admin Dose 4 PUFF; Start 07/14/16 at 22:00 Metoclopramide HCl (Reglan) 5 mg Q8 IV Last administered on 07/25/16 05:22; Admin Dose 5 MG; Start 07/18/16 at 22:00 Diagnostic Test (Pha) 1 ea 1 ea Q4 XX Last administered on 07/24/16 17:37; Admin Dose 1 EA; Start 07/19/16 at 13:00 Total Parenteral Nutrition (Tpn) 1,000 ml @ 30 mls/hr Q24H IV Last administered on 07/24/16 16:01; Admin Dose 30 MLS/HR; Start 07/19/16 at 14:00 Morphine Sulfate 4 mg 4 mg Q4H PRN IV SEVERE PAIN LEVEL 7-10 Last administered on 07/25/16 08:26; Admin Dose 4 MG; Start 07/22/16 at 16:30 Linezolid 300 ml @ 300 mls/hr Q12 IVPB Last administered on 07/25/16 09:02; Admin Dose 300 MLS/HR; Start 07/24/16 at 21:00 Metronidazole 250 mg/N/A 50 ml @ 50 mls/hr Q8 IVPB Last administered on 05:22; Admin Dose 50 MLS/HR; Start 07/24/16 at 22:00 Trimethoprim/ Sulfamethoxazole 25 ml/Dextrose 525 ml @ 350 mls/hr Q24H IVPB ; Start 07/25/16 at 14:00 Albumin Human (Albumin Human 25%) 100 ml @ 100 mls/hr Q8H IV Last administered on 07/25/16t 06:02; Admin Dose 100 MLS/HR; Start 07/25/16 at 05:30 ; Stop 07/25/16 at 14:29 NEL DEL ANGEL July 25, 2016 11:44
[2016-07-25 11:53] LABS: FIBRIN SPLIT PRODUCT <10 ug/ml (<10)
--- NOTE | 2016-07-25 12:30 | CONS ---
Date/Time of Note Date/Time of Note DATE: 07/25/16 TIME: 12:29 Assessment/Plan Assessment/Plan Additional Assessment/Plan IMPRESSION: 1. Biliary obstruction. Status post biliary stent, bilirubin is now going up, radiologist needs to evaluate biliary drain 2. Gram negative bacteremia, either from the urine or from the biliary system. 3. 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 4. 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 Gastric outlet obstruction secondary to tumor growing over the proximal part of the metallic stent in the duodenum. 6. Aspiration pneumonia 7. Renal failure, it is multifactorial 8. UTI with Pseudomonas and Chelsy in the urine, E. coli in the blood 9. 4+ pedal edema, fluid overload 10. Respiratory failure successfully extubated Plan Continue NG tube to intermittent suction since the Patient has got gastric outlet obstruction. Biliary obstruction status post plastic biliary stent both external and internal Respiratory failure patient is on vent Continue antibiotic When patient is more stable will place another duodenal stent. Patient is not a candidate for surgical bypass ID follow-up Continue dialysis Monitor liver function if bilirubin keeps going up and radiologist needs to evaluate biliary drainage TPN Sonogram of the liver, revealed fatty liver no obstruction Cholangiogram done yesterday on 07/22/2016 showed complete obstruction of the distal part of the bile duct. Patient bilirubin is going up due to the obstruction. His prognosis remains poor. external biliary catheter connected to bag Consultation Date/Type/Reason Admit Date/Time Jun 30, 2016 at 15:42 Initial Consult Date 06/30/16 Type of Consultation: Oncology Referring Provider: GAMALIEL HAIR MD 24 HR Interval Summary Subjective hx not possible: pt critical Exam/Review of Systems Vital Signs Vitals Vital Signs Date Time Temp Pulse Resp B/P Pulse Ox O2 Delivery O2 Flow Rate FiO2 07/25/16 12:14 103 07/25/16 11:30 95 40 07/25/16 11:16 98.1 21 102/64 07/25/16 04:23 BIPAP 07/25/16 03:55 6.0 Intake and Output 07/24/16 07/24/16 07/25/16 15:00 23:00 07:00 Intake Total 0 ml Output Total 10 ml 25 ml Balance -10 ml -25 ml Exam Constitutional: alert, oriented, well developed Psych: nl mood/affect, no complaints Head: atraumatic, normocephalic Eyes: EOMI, PERRL, nl conjunctiva, nl lids, nl sclera ENMT: nl external ears & nose, nl lips & teeth, nl nasal mucosa & septum Neck: non-tender, supple Respiratory: clear to auscultation, normal air movement Cardiovascular: nl pulses, regular rate and rhythm Gastrointestinal: nl liver, spleen, non-tender, soft Musculoskeletal: nl extremities to inspection, nl gait and stance Extremities: normal pulses Neurological: SHUTTLER II-XII intact, nl mental status, nl speech, nl strength Skin: nl turgor, No rash or lesions Lymph: nl lymph nodes Results Result Diagram: 07/25/1615 07/25/1615 Results 24 hrs Laboratory Tests Test 07/24/16 12:33 07/24/16 17:33 07/24/16 21:08 07/25/16 01:28 Bedside Glucose 170 175 170 177 Test 07/25/16 05:06 07/25/16 06:15 07/25/16 09:01 Bedside Glucose 182 176 White Blood Count 19.4 H Red Blood Count 3.76 L Hemoglobin 11.2 L Hematocrit 33.7 L Mean Corpuscular Volume 89.6 Mean Corpuscular Hemoglobin 29.8 Mean Corpuscular Hemoglobin Concent 33.2 Red Cell Distribution Width 19.3 H Platelet Count 68 L Mean Platelet Volume 12.8 H Neutrophils % 91.9 H Lymphocytes % 2.9 L Monocytes % 1.8 Eosinophils % 0.1 Basophils % 0.1 Nucleated Red Blood Cells % 0.2 H Neutrophils # 17.9 H Lymphocytes # 0.6 L Monocytes # 0.4 Eosinophils # 0.0 Basophils # 0.0 Nucleated Red Blood Cells # 0.0 Prothrombin Time 13.5 Prothrombin Time Ratio 1.1 INR International Normalized Ratio 1.03 Activated Partial Thromboplast Time 35.6 H Thrombin Time 16.1 Fibrinogen 517.0 #H Plasma Fibrin Degradation Products <10 D-Dimer > 65340.00 H Sodium Level 137 Potassium Level 4.2 Chloride Level 105 Carbon Dioxide Level 18 L Anion Gap 18 H Blood Urea Nitrogen 88 H Creatinine 3.69 H Glucose Level 156 Calcium Level 8.7 Phosphorus Level 4.8 Total Bilirubin 8.3 H Direct Bilirubin 7.70 H Indirect Bilirubin 0.6 Aspartate Amino Transf (AST/SGOT) 147 #H Alanine Aminotransferase (ALT/SGPT) 97 H Alkaline Phosphatase 159 H Total Protein 5.0 L Albumin 2.5 L Medications Medications Current Medications Ondansetron HCl (Zofran Inj) 4 mg Q6H PRN IV NAUSEA AND/OR VOMITING Last administered on 07/25/16 12:19; Admin Dose 4 MG; Start 06/30/16 at 16:30 Acetaminophen (Tylenol Tab) 650 mg Q6H PRN PO PAIN LEVEL 1-3 OR FEVER Last administered on 07/05/16 19:31; Admin Dose 650 MG; Start 06/30/16 at 16:30 Acetaminophen (Tylenol Supp) 650 mg Q6H PRN [place] PAIN LEVEL 1-3 OR FEVER; Start 06/30/16 at 16:30 Acetaminophen/ Hydrocodone Bitart ([place] (5/325)) 1 tab Q6H PRN PO MODERATE PAIN LEVEL 4-6 Last administered on 07/18/16 00:29; Admin Dose 1 TAB; Start at 16:30 Acetaminophen/ Hydrocodone Bitart ([place] (5/325)) 2 tab Q6H PRN PO SEVERE PAIN LEVEL 7-10 Last administered on 07/10/16 13:15; Admin Dose 2 TAB; Start at 16:30 Docusate Sodium (Colace) 100 mg Q12H PRN PO CONSTIPATION; Start 06/30/16 at 16: 30 Magnesium Hydroxide (Milk Of Mag) 30 ml DAILY PRN PO CONSTIPATION; Start at 16:30 Bisacodyl (Dulcolax Supp) 10 mg DAILY PRN [place] CONSTIPATION; Start 06/30/16 at 16 :30 Pantoprazole 40 mg 40 mg DAILY@06 IV Last administered on 07/25/16 05:22; Admin Dose 40 MG; Start 07/01/16 at 06:00 Erythromycin Lactobionate/ Sodium Chloride (Erythromycin Lactobionate/NS) 100 ml @ 100 mls/hr Q6 IVPB Last administered on 07/25/16 11:44; Admin Dose 100 MLS/HR; Start 07/09/16 at 00:00 Albuterol (Ventolin Hfa) 2 puff Q4H PRN INH SHORTNESS OF BREATH Last administered on 07/20/16 08:56; Admin Dose 2 PUFF; Start 07/14/16 at 22:00 Ipratropium [place] (Atrovent Hfa) 4 puff Q4H PRN INH SHORTNESS OF BREATH Last administered on 07/20/16 08:55; Admin Dose 4 PUFF; Start 07/14/16 at 22:00 Metoclopramide HCl (Reglan) 5 mg Q8 IV Last administered on 07/25/16 05:22; Admin Dose 5 MG; Start 07/18/16 at 22:00 Diagnostic Test (Pha) 1 ea 1 ea Q4 XX Last administered on 07/25/16 12:28; Admin Dose 1 EA; Start 07/19/16 at 13:00 Total Parenteral Nutrition (Tpn) 1,000 ml @ 30 mls/hr Q24H IV Last administered on 07/24/16 16:01; Admin Dose 30 MLS/HR; Start 07/19/16 at 14:00 Morphine Sulfate 4 mg 4 mg Q4H PRN IV SEVERE PAIN LEVEL 7-10 Last administered on 07/25/16 08:26; Admin Dose 4 MG; Start 07/22/16 at 16:30 Linezolid 300 ml @ 300 mls/hr Q12 IVPB Last administered on 07/25/16 09:02; Admin Dose 300 MLS/HR; Start 07/24/16 at 21:00 Metronidazole 250 mg/N/A 50 ml @ 50 mls/hr Q8 IVPB Last administered on 05:22; Admin Dose 50 MLS/HR; Start 07/24/16 at 22:00 Trimethoprim/ Sulfamethoxazole 25 ml/Dextrose 525 ml @ 350 mls/hr Q24H IVPB ; Start 07/25/16 at 14:00 Albumin Human (Albumin Human 25%) 100 ml @ 100 mls/hr Q8H IV Last administered on 07/25/16 12:18; Admin Dose 100 MLS/HR; Start 07/25/16 at 05:30 ; Stop 07/25/16 at 14:29 TIANNA SALINAS MD July 25, 2016 12:30
--- NOTE | 2016-07-25 12:57 | PN ---
DATE: 07/25/2016 INFECTIOUS DISEASE PROGRESS NOTE SUBJECTIVE: The patient is awake on BiPAP, looks comfortable, no fevers. LABORATORY DATA: WBC today 19.4, platelets 68, neutrophils 91.9. BUN 88, creatinine 3.69. MICROBIOLOGY: Gastric fluid grew Stenotrophomonas maltophilia and VRE. ANTIMICROBIALS: The patient is on: 1. Bactrim. 2. Zyvox 3. Flagyl. INDWELLINGS: Port-A-Cath [place], [place], and intraabdominal drainage catheter. PHYSICAL EXAMINATION: GENERAL: Chronically ill-appearing, elderly man who is in no distress. HEENT: Head atraumatic, normocephalic. Sclerae anicteric. Buccal mucosa dry. NECK: Supple. CHEST: Rise symmetrical. Breath sounds diminished to bases with scattered rhonchi. HEART: S1, S2. ABDOMEN: Soft, bowel sounds present. EXTREMITIES: Without cyanosis. ASSESSMENT: 1. Sepsis with multisystem organ failure. 2. Peritonitis. 3. Status post Escherichia coli bacteremia on admission. 4. Pneumonia with acute respiratory failure. 5. Biliary obstruction. 6. Acute renal failure, hemodialysis dependent. 7. Diabetes. 8. Metastatic urothelial cancer. PLAN: The patient is doing poorly, covered with appropriate antibiotics. He is being followed by [facility]. PROGNOSIS: Poor. Dictated By: MARIELA ROBIN TILE GRADER for PENNY BARRIGA/ANN MARIE Conf#: [id number] DID#: [id number]
[2016-07-25 14:59] LABS: AADO2 Arterial 150.4 mmHg (7.0-24.0); Allen Test ACCEPTAB; Arterial Base Excess -1.4 mmol/L (-3.0-3); Arterial COHb 0.3 % (0.0-3.0); Arterial Fraction of Oxyhgb 95.4 % (93.0-99.0); Arterial HCO3 23.1 mmol/L (22.0-26.0); Arterial MetHb 0.5 % (0.0-1.5); Arterial Total Hemglobin 10.4 g/dl (12.0-18.0); Blood Gas IEPAP 15/5; MODE MASK - BIPAP
[2016-07-25] MEDS: TRIMETHOPRIM/SULFAMETHOXAZOLE 25 ML in DEXTROSE 5% 500 ML IVPB SCH (15:07)
[2016-07-25] MEDS: TPN 1,000 ML IV SCH (16:13)
[2016-07-25] MEDS: INSULIN ASPART [NOVOLOG] 3 ML PEN SC SCH ×3 (17:00→21:00)
[2016-07-25] MEDS ORDERED: DEXTROSE 50% 50 ML SYRINGE IV PRN ×2 (17:30)
[2016-07-25] MEDS ORDERED: GLUCAGON 1 MG INJ IM PRN (17:30)
[2016-07-25] MEDS ORDERED: GLUCOSE GEL 15 GRAM TUBE PO PRN ×2 (17:30)
[2016-07-25] MEDS ORDERED: GLUCOSE GEL 15 GRAM TUBE BUCCAL PRN (17:30)
--- NOTE | 2016-07-25 17:57 | CONS ---
Date/Time of Note Date/Time of Note DATE: 07/25/16 TIME: 17:55 Assessment/Plan Assessment/Plan Additional Assessment/Plan 1. Acute fluid overload with anasarca started on HD during this admission 2. Acute kidney injury secondary to acute tubular necrosis from septic shock and also contributing vancomycin.did not improve, started on HD during this admission 3. Metabolic acidosis secondary to acute renal failure. 4. 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 5. Septic shock secondary to aspiration pneumonia and gastric outlet obstruction, status post duodenal stent placement. PLAN: s/p Extubation, pt did not tolerate HD well, BP drops and HR went up to 140s, HD stopped after 2 hour BIPAP prn As per current discussion with and son- they want to continue HD for a skilled nursing we will wait for pt to be more stable before we decide for Permacath dialysis catheter will plan for Permacath after pt will be more stable and after talking to family will continue to follow up Consultation Date/Type/Reason Admit Date/Time Jun 30, 2016 at 15:42 Initial Consult Date 07/14/16 Type of Consultation: NEPHROLOGY Referring Provider: GAMALIEL HAIR MD 24 HR Interval Summary Free Text/Dictation pt did not tolerate HD well, BP drops and HR went up to 140s, HD stopped after 2 hour Exam/Review of Systems Vital Signs Vitals Vital Signs Date Time Temp Pulse Resp B/P Pulse Ox O2 Delivery O2 Flow Rate FiO2 07/25/16 17:10 110 96 40 07/25/16 15:38 98.1 20 127/75 07/25/16 04:23 BIPAP 07/25/16 03:55 6.0 Intake and Output 07/24/16 07/24/16 07/25/16 15:00 23:00 07:00 Intake Total 0 ml Output Total 10 ml 25 ml Balance -10 ml -25 ml Exam Constitutional: alert, awake Respiratory: bibasilar crackles , no wheezing Cardiovascular: regular rate and rhythm Gastrointestinal: soft, No distended Musculoskeletal: nl extremities to inspection + deja HD catheter Results Result Diagram: 07/25/16 0615 07/25/16 0615 Results 24 hrs Laboratory Tests Test 07/24/16 21:08 07/25/16 01:28 07/25/16 05:06 5/22/17 06:15 Bedside Glucose 170 177 182 White Blood Count 19.4 H Red Blood Count 3.76 L Hemoglobin 11.2 L Hematocrit 33.7 L Mean Corpuscular Volume 89.6 Mean Corpuscular Hemoglobin 29.8 Mean Corpuscular Hemoglobin Concent 33.2 Red Cell Distribution Width 19.3 H Platelet Count 68 L Mean Platelet Volume 12.8 H Neutrophils % 91.9 H Lymphocytes % 2.9 L Monocytes % 1.8 Eosinophils % 0.1 Basophils % 0.1 Nucleated Red Blood Cells % 0.2 H Neutrophils # 17.9 H Lymphocytes # 0.6 L Monocytes # 0.4 Eosinophils # 0.0 Basophils # 0.0 Nucleated Red Blood Cells # 0.0 Prothrombin Time 13.5 Prothrombin Time Ratio 1.1 INR International Normalized Ratio 1.03 Activated Partial Thromboplast Time 35.6 H Thrombin Time 16.1 Fibrinogen 517.0 #H Plasma Fibrin Degradation Products <10 D-Dimer > 67312.00 H Sodium Level 137 Potassium Level 4.2 Chloride Level 105 Carbon Dioxide Level 18 L Anion Gap 18 H Blood Urea Nitrogen 88 H Creatinine 3.69 H Glucose Level 156 Calcium Level 8.7 Phosphorus Level 4.8 Total Bilirubin 8.3 H Direct Bilirubin 7.70 H Indirect Bilirubin 0.6 Aspartate Amino Transf (AST/SGOT) 147 #H Alanine Aminotransferase (ALT/SGPT) 97 H Alkaline Phosphatase 159 H Total Protein 5.0 L Albumin 2.5 L Test 07/25/16 09:01 07/25/16 11:32 07/25/16 12:24 07/25/16 16:51 Bedside Glucose 176 165 236 H Blood Gas Specimen Source Blood arterial Arterial Blood Date Drawn 07/25/2016 2:45:14 PM Arterial Blood pH (Temp corrected) 7.399 Arterial Blood pCO2 (Temp correct) 38.3 Arterial Blood pO2 (Temp corrected) 90.8 Arterial Blood HCO3 23.1 Arterial Blood Base Excess -1.4 Arterial Blood Oxygen Saturation 96.2 Og Test ACCEPTAB Arterial Blood Gas Puncture Site Right Radial Arterial Blood Carboxyhemoglobin 0.3 Arterial Blood Methemoglobin 0.5 Blood Gas A-a O2 Differential 150.4 H Oxyhemoglobin Percent 95.4 Total Hemoglobin 10.4 L Blood Gas Temperature 37.0 Blood Gas Respiration Rate 16.0 Blood Gas Actual Respiration Rate 34 Blood Gas Modality MASK - BIPAP FiO2 40.0 Blood Gas IPAP/EPAP Ratio 15 Blood Gas Notified Whom JLD Blood Gas Notified Time 07/25/2016 2:58:57 PM Medications Medications Current Medications Ondansetron HCl (Zofran Inj) 4 mg Q6H PRN IV NAUSEA AND/OR VOMITING Last administered on 07/25/16 16:48; Admin Dose 4 MG; Start 06/30/16 at 16:30 Acetaminophen (Tylenol Tab) 650 mg Q6H PRN PO PAIN LEVEL 1-3 OR FEVER Last administered on 07/05/16 19:31; Admin Dose 650 MG; Start 06/30/16 at 16:30 Acetaminophen (Tylenol Supp) 650 mg Q6H PRN [place] PAIN LEVEL 1-3 OR FEVER; Start 06/30/16 at 16:30 Acetaminophen/ Hydrocodone Bitart ([place] (5/325)) 1 tab Q6H PRN PO MODERATE PAIN LEVEL 4-6 Last administered on 07/18/16 00:29; Admin Dose 1 TAB; Start at 16:30 Acetaminophen/ Hydrocodone Bitart ([place] (5/325)) 2 tab Q6H PRN PO SEVERE PAIN LEVEL 7-10 Last administered on 07/10/16 13:15; Admin Dose 2 TAB; Start at 16:30 Docusate Sodium (Colace) 100 mg Q12H PRN PO CONSTIPATION; Start 06/30/16 at 16: 30 Magnesium Hydroxide (Milk Of Mag) 30 ml DAILY PRN PO CONSTIPATION; Start at 16:30 Bisacodyl (Dulcolax Supp) 10 mg DAILY PRN [place] CONSTIPATION; Start 06/30/16 at 16 :30 Pantoprazole 40 mg 40 mg DAILY@06 IV Last administered on 07/25/16 05:22; Admin Dose 40 MG; Start 07/01/16 at 06:00 Erythromycin Lactobionate/ Sodium Chloride (Erythromycin Lactobionate/NS) 100 ml @ 100 mls/hr Q6 IVPB Last administered on 07/25/16 11:44; Admin Dose 100 MLS/HR; Start 07/09/16 at 00:00 Albuterol (Ventolin Hfa) 2 puff Q4H PRN INH SHORTNESS OF BREATH Last administered on 07/20/16 08:56; Admin Dose 2 PUFF; Start 07/14/16 at 22:00 Ipratropium [place] (Atrovent Hfa) 4 puff Q4H PRN INH SHORTNESS OF BREATH Last administered on 07/20/16 08:55; Admin Dose 4 PUFF; Start 07/14/16 at 22:00 Metoclopramide HCl (Reglan) 5 mg Q8 IV Last administered on 07/25/16 13:58; Admin Dose 5 MG; Start 07/18/16 at 22:00 Diagnostic Test (Pha) 1 ea 1 ea Q4 XX Last administered on 07/25/16 16:48; Admin Dose 1 EA; Start 07/19/16 at 13:00 Total Parenteral Nutrition (Tpn) 1,000 ml @ 30 mls/hr Q24H IV Last administered on 07/25/16 16:13; Admin Dose 30 MLS/HR; Start 07/19/16 at 14:00 Morphine Sulfate 4 mg 4 mg Q4H PRN IV SEVERE PAIN LEVEL 7-10 Last administered on 07/25/16 08:26; Admin Dose 4 MG; Start 07/22/16 at 16:30 Linezolid 300 ml @ 300 mls/hr Q12 IVPB Last administered on 07/25/16 09:02; Admin Dose 300 MLS/HR; Start 07/24/16 at 21:00 Metronidazole 250 mg/N/A 50 ml @ 50 mls/hr Q8 IVPB Last administered on 13:57; Admin Dose 50 MLS/HR; Start 07/24/16 at 22:00 Trimethoprim/ Sulfamethoxazole/ Dextrose (Bactrim/D5W) 525 ml @ 350 mls/hr Q24H IVPB Last administered on 07/25/16 15:07; Admin Dose 350 MLS/HR; Start at 14:00 Insulin Aspart (Novolog Insulin Pen) NOVOLOG *MILD* ALGORITHM Q4 SC ; Start at 17:00 Miscellaneous Information (* Miscellaneous Pharmacy Order) Discontinue Glyburide , Glipizide,... ONCE ONCE XX ; Start 07/25/16 at 21:00; Stop 07/25/16 at 21:01 Miscellaneous Information 1 ea NOTE XX ; Start 07/25/16 at 17:30 Glucose (Glutose) 15 gm Q15M PRN PO DECREASED GLUCOSE; Start 07/25/16 at 17:30 Glucose (Glutose) 22.5 gm Q15M PRN PO DECREASED GLUCOSE; Start 07/25/16 at 17: 30 Dextrose (D50w Syringe) 25 ml Q15M PRN IV DECREASED GLUCOSE; Start 07/25/16 at 17:30 Dextrose (D50w Syringe) 50 ml Q15M PRN IV DECREASED GLUCOSE; Start 07/25/16 at 17:30 Glucagon (Glucagen) 1 mg Q15M PRN IM DECREASED GLUCOSE; Start 07/25/16 at 17:30 Glucose (Glutose) 15 gm Q15M PRN BUCCAL DECREASED GLUCOSE; Start 07/25/16 at 17 :30 SHANAE LWEIS MD July 25, 2016 17:57
[2016-07-26] VITALS (20 sets, daily range): BP systolic 59–106; BP diastolic 34–66; PULSE 0–123; RESP 18–20
[2016-07-26] MEDS: ERYTHROMYCIN LACTOBIONATE 250 MG in SOD CHLORIDE 0.9% 100 ML IVPB SCH ×3 (00:37→11:29)
[2016-07-26] MEDS: INSULIN ASPART [NOVOLOG] 3 ML PEN SC SCH ×4 (01:33→13:19)
[2016-07-26] MEDS: ACCU-CHEK XX SCH ×4 (01:37→13:26)
[2016-07-26] MEDS: metroNIDAZOLE 500 MG/NS (PMX) 250 MG in EVAC CONTAINER 1 BOTTLE IVPB SCH ×2 (05:52→13:18)
[2016-07-26] MEDS: PANTOPRAZOLE 40 MG INJ IV SCH (05:52)
[2016-07-26] MEDS: METOCLOPRAMIDE 10 MG INJ IV SCH ×2 (05:54→13:18)
[2016-07-26] MEDS: ONDANSETRON 4 MG INJ IV PRN (08:10)
[2016-07-26] MEDS: LINEZOLID 600 MG/D5W (PMX) 300 ML IVPB SCH (08:54)
[2016-07-26 08:56] LABS: ADD SCAN DIFF NO
[2016-07-26 09:01] LABS: ABNORMAL IP MESSAGE 1; BASOPHILS % 0.1 % (0.0-2.0); EOSINOPHILS % 0.1 % (0.0-7.0); HEMATOCRIT 28.9 % (42.0-52.0); HEMOGLOBIN 9.7 g/dl (14.0-18.0); LYMPHOCYTES # 0.6 10^3/ul (0.8-2.9); LYMPHOCYTES % 2.8 % (15.0-51.0); MEAN CORPUSCULAR HEMOGLOBIN 30.1 pg (29.0-33.0); MEAN CORPUSCULAR HGB CONC 33.6 g/dl (32.0-37.0); MEAN CORPUSCULAR VOLUME 89.8 fl (82.0-101.0); MEAN PLATELET VOLUME 13.6 fl (7.4-10.4); MONOCYTE # 0.4 10^3/ul (0.3-0.9); NEUTROPHIL # 19.1 10^3/ul (1.6-7.5); NEUTROPHILS % 92.1 % (39.0-77.0); PLATELET COUNT 60 10^3/UL (140-415); RED BLOOD COUNT 3.22 10^6/ul (4.70-6.10); RED CELL DISTRIBUTION WIDTH 19.8 % (11.5-14.5); WHITE BLOOD COUNT 20.7 10^3/ul (4.8-10.8)
[2016-07-26] MEDS: morphine 4 MG/ML VIAL IV PRN ×2 (09:03→15:56)
[2016-07-26 09:23] LABS: ALBUMIN 3.1 g/dl (3.3-4.9); CALCIUM 9.1 mg/dl (8.4-10.2); PHOSPHORUS 4.1 mg/dl (2.5-4.9); POTASSIUM 3.7 mmol/L (3.5-5.1)
--- NOTE | 2016-07-26 09:27 | CONS ---
Date/Time of Note Date/Time of Note DATE: 07/26/16 TIME: 09:22 Assessment/Plan Assessment/Plan Additional Assessment/Plan 1. Acute fluid overload with anasarca started on HD during this admission 2. Acute kidney injury secondary to acute tubular necrosis from septic shock and also contributing vancomycin.did not improve, started on HD during this admission 3. Metabolic acidosis secondary to acute renal failure. 4. 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 5. Septic shock secondary to aspiration pneumonia and gastric outlet obstruction, status post duodenal stent placement. PLAN: s/p Extubation, pt did not tolerate HD well, BP drops and HR went up to 140s, HD stopped after 2 hour Currently on BIPAP As per current discussion with and son today- they want to continue HD for a correction- currently he is too unstable for permacath at this time we will wait for pt to be more stable before we decide for Permacath dialysis catheter will continue to follow up Consultation Date/Type/Reason Admit Date/Time Jun 30, 2016 at 15:42 Initial Consult Date 07/14/16 Type of Consultation: NEPHROLOGY Referring Provider: GAMALIEL HAIR MD 24 HR Interval Summary Free Text/Dictation pt did not tolerated HD well yesteday, BP drops and HR went upto 130s, currently on BIPAP- still has deja HD catheter Exam/Review of Systems Vital Signs Vitals Vital Signs Date Time Temp Pulse Resp B/P Pulse Ox O2 Delivery O2 Flow Rate FiO2 07/26/16 08:14 113 07/26/16 07:20 94 40 07/26/16 06:48 98.4 18 87/61 07/25/16 04:23 BIPAP 07/25/16 03:55 6.0 Intake and Output 07/25/16 07/25/16 07/26/16 15:00 23:00 07:00 Intake Total 300 ml 1335 ml 300 ml Output Total 1300 ml 50 ml 10 ml Balance -1000 ml 1285 ml 290 ml Exam Constitutional: alert, awake Respiratory: bibasilar crackles , no wheezing Cardiovascular: regular rate and rhythm Gastrointestinal: soft, No distended Musculoskeletal: nl extremities to inspection + deja HD catheter Results Result Diagram: 07/25/16 0615 07/25/16 0615 Results 24 hrs Laboratory Tests Test 07/25/16 11:32 07/25/16 12:24 07/25/16 16:51 07/25/16 18:01 Blood Gas Specimen Source Blood arterial Arterial Blood Date Drawn 07/25/2016 2:45:14 PM Arterial Blood pH (Temp corrected) 7.399 Arterial Blood pCO2 (Temp correct) 38.3 Arterial Blood pO2 (Temp corrected) 90.8 Arterial Blood HCO3 23.1 Arterial Blood Base Excess -1.4 Arterial Blood Oxygen Saturation 96.2 Og Test ACCEPTAB Arterial Blood Gas Puncture Site Right Radial Arterial Blood Carboxyhemoglobin 0.3 Arterial Blood Methemoglobin 0.5 Blood Gas A-a O2 Differential 150.4 H Oxyhemoglobin Percent 95.4 Total Hemoglobin 10.4 L Blood Gas Temperature 37.0 Blood Gas Respiration Rate 16.0 Blood Gas Actual Respiration Rate 34 Blood Gas Modality MASK - BIPAP FiO2 40.0 Blood Gas IPAP/EPAP Ratio 15/ Blood Gas Notified Whom JLD Blood Gas Notified Time 07/25/2016 2:58:57 PM Bedside Glucose 165 236 H 206 Test 07/25/16 20:03 07/26/16 01:29 07/26/16 04:49 07/26/16 08:35 Bedside Glucose 180 209 176 173 Medications Medications Current Medications Ondansetron HCl (Zofran Inj) 4 mg Q6H PRN IV NAUSEA AND/OR VOMITING Last administered on 07/26/16 08:10; Admin Dose 4 MG; Start 06/30/16 at 16:30 Acetaminophen (Tylenol Tab) 650 mg Q6H PRN PO PAIN LEVEL 1-3 OR FEVER Last administered on 07/05/16 19:31; Admin Dose 650 MG; Start 06/30/16 at 16:30 Acetaminophen (Tylenol Supp) 650 mg Q6H PRN [place] PAIN LEVEL 1-3 OR FEVER; Start 06/30/16 at 16:30 Acetaminophen/ Hydrocodone Bitart ([place] (5/325)) 1 tab Q6H PRN PO MODERATE PAIN LEVEL 4-6 Last administered on 07/18/16 00:29; Admin Dose 1 TAB; Start at 16:30 Acetaminophen/ Hydrocodone Bitart ([place] (5/325)) 2 tab Q6H PRN PO SEVERE PAIN LEVEL 7-10 Last administered on 07/10/16 13:15; Admin Dose 2 TAB; Start at 16:30 Docusate Sodium (Colace) 100 mg Q12H PRN PO CONSTIPATION; Start 06/30/16 at 16: 30 Magnesium Hydroxide (Milk Of Mag) 30 ml DAILY PRN PO CONSTIPATION; Start at 16:30 Bisacodyl (Dulcolax Supp) 10 mg DAILY PRN [place] CONSTIPATION; Start 06/30/16 at 16 :30 Pantoprazole 40 mg 40 mg DAILY@06 IV Last administered on 07/26/16 05:52; Admin Dose 40 MG; Start 07/01/16 at 06:00 Erythromycin Lactobionate/ Sodium Chloride (Erythromycin Lactobionate/NS) 100 ml @ 100 mls/hr Q6 IVPB Last administered on 07/26/16 05:51; Admin Dose 100 MLS/HR; Start 07/09/16 at 00:00 Albuterol (Ventolin Hfa) 2 puff Q4H PRN INH SHORTNESS OF BREATH Last administered on 07/20/16 08:56; Admin Dose 2 PUFF; Start 07/14/16 at 22:00 Ipratropium [place] (Atrovent Hfa) 4 puff Q4H PRN INH SHORTNESS OF BREATH Last administered on 07/20/16 08:55; Admin Dose 4 PUFF; Start 07/14/16 at 22:00 Metoclopramide HCl (Reglan) 5 mg Q8 IV Last administered on 07/26/16 05:54; Admin Dose 5 MG; Start 07/18/16 at 22:00 Diagnostic Test (Pha) 1 ea 1 ea Q4 XX Last administered on 07/26/16 08:55; Admin Dose 1 EA; Start 07/19/16 at 13:00 Total Parenteral Nutrition (Tpn) 1,000 ml @ 30 mls/hr Q24H IV Last administered on 07/25/16 16:13; Admin Dose 30 MLS/HR; Start 07/19/16 at 14:00 Morphine Sulfate 4 mg 4 mg Q4H PRN IV SEVERE PAIN LEVEL 7-10 Last administered on 07/26/16 09:03; Admin Dose 4 MG; Start 07/22/16 at 16:30 Linezolid 300 ml @ 300 mls/hr Q12 IVPB Last administered on 07/26/16 08:54; Admin Dose 300 MLS/HR; Start 07/24/16 at 21:00 Metronidazole 250 mg/N/A 50 ml @ 50 mls/hr Q8 IVPB Last administered on 05:52; Admin Dose 50 MLS/HR; Start 07/24/16 at 22:00 Trimethoprim/ Sulfamethoxazole/ Dextrose (Bactrim/D5W) 525 ml @ 350 mls/hr Q24H IVPB Last administered on 07/25/16 15:07; Admin Dose 350 MLS/HR; Start at 14:00 Insulin Aspart (Novolog Insulin Pen) NOVOLOG *MILD* ALGORITHM Q4 SC Last administered on 07/26/16 09:12; Admin Dose 1 UNIT; Start 07/25/16 at 17:00 Miscellaneous Information 1 ea NOTE XX ; Start 07/25/16 at 17:30 Glucose (Glutose) 15 gm Q15M PRN PO DECREASED GLUCOSE; Start 07/25/16 at 17:30 Glucose (Glutose) 22.5 gm Q15M PRN PO DECREASED GLUCOSE; Start 07/25/16 at 17: 30 Dextrose (D50w Syringe) 25 ml Q15M PRN IV DECREASED GLUCOSE; Start 07/25/16 at 17:30 Dextrose (D50w Syringe) 50 ml Q15M PRN IV DECREASED GLUCOSE; Start 07/25/16 at 17:30 Glucagon (Glucagen) 1 mg Q15M PRN IM DECREASED GLUCOSE; Start 07/25/16 at 17:30 Glucose (Glutose) 15 gm Q15M PRN BUCCAL DECREASED GLUCOSE; Start 07/25/16 at 17 :30 SHANAE LEWIS MD July 26, 2016 09:27
[2016-07-26 09:28] LABS: CALCIUM 9.1 mg/dl (8.4-10.2); MAGNESIUM 2.3 mg/dl (1.7-2.5); POTASSIUM 3.9 mmol/L (3.5-5.1)
[2016-07-26 09:31] LABS: CREATININE 2.95 mg/dl (0.61-1.24)
[2016-07-26 09:35] LABS: CREATININE 2.91 mg/dl (0.61-1.24)
[2016-07-26 09:38] LABS: BILIRUBIN,DIRECT 8.4 mg/dl (0.00-0.20); BILIRUBIN,INDIRECT 0.8 mg/dl (0-1.1); BILIRUBIN,TOTAL 9.2 mg/dl (0.2-1.3)
--- NOTE | 2016-07-26 10:27 | CONS ---
Date/Time of Note Date/Time of Note DATE: 07/26/16 TIME: 10:24 Assessment/Plan Assessment/Plan Additional Assessment/Plan Assessment recommendations; 1. Patient admitted for gastric outlet obstruction then developed left-sided pneumonia after EGD due to aspiration leading to respiratory failure, now successfully extubated several days ago with the family deciding for a DNR status. 2. Renal failure, on hemodialysis. Patient could not handle hemodialysis yesterday because of hemodynamic instability. 3. Tachycardia. 4. Widely metastatic uroepithelial cancer. 5. Hyperbilirubinemia, due to biliary obstruction. Status post biliary drain placement. 6. Poor functional status. Continue current treatment. Prognosis is very poor. Consultation Date/Type/Reason Admit Date/Time Jun 30, 2016 at 15:42 Initial Consult Date 07/12/16 Type of Consultation: Pulmonary Referring Provider: GAMALIEL HAIR MD 24 HR Interval Summary Free Text/Dictation Patient condition is tenuous at best. Requiring continuous BiPAP. Although on just 40% FiO2. General exam; elderly male, awake and alert. Currently in no distress. On BiPAP. Exam/Review of Systems Vital Signs Vitals Vital Signs Date Time Temp Pulse Resp B/P Pulse Ox O2 Delivery O2 Flow Rate FiO2 07/26/16 09:55 119 95 40 07/26/16 06:48 98.4 18 87/61 07/25/16 04:23 BIPAP 07/25/16 03:55 6.0 Intake and Output 07/25/16 07/25/16 07/26/16 15:00 23:00 07:00 Intake Total 300 ml 1335 ml 300 ml Output Total 1300 ml 50 ml 10 ml Balance -1000 ml 1285 ml 290 ml Exam HEENT exam is; supple neck, no JVD. No lymphadenopathy. Midline trachea. No thyromegaly. Patient does have multiple carious teeth. Patient remains strongly icteric. Chest examination; diminished breath sound bilaterally no added sounds. S1-S2 audible, no murmurs. Regular rhythm. Abdomen examination; protuberant tense. Bowel sounds are absent. There is a biliary drain in place. Extremity examination; trace edema. SALES SERVICE ASSISTANT examination; no focal deficit. Results Result Diagram: 07/26/16 0800 07/26/16 0800 Results 24 hrs Laboratory Tests Test 07/25/16 11:32 07/25/16 12:24 07/25/16 16:51 07/25/16 18:01 Blood Gas Specimen Source Blood arterial Arterial Blood Date Drawn 07/25/2016 2:45:14 PM Arterial Blood pH (Temp corrected) 7.399 Arterial Blood pCO2 (Temp correct) 38.3 Arterial Blood pO2 (Temp corrected) 90.8 Arterial Blood HCO3 23.1 Arterial Blood Base Excess -1.4 Arterial Blood Oxygen Saturation 96.2 Og Test ACCEPTAB Arterial Blood Gas Puncture Site Right Radial Arterial Blood Carboxyhemoglobin 0.3 Arterial Blood Methemoglobin 0.5 Blood Gas A-a O2 Differential 150.4 H Oxyhemoglobin Percent 95.4 Total Hemoglobin 10.4 L Blood Gas Temperature 37.0 Blood Gas Respiration Rate 16.0 Blood Gas Actual Respiration Rate 34 Blood Gas Modality MASK - BIPAP FiO2 40.0 Blood Gas IPAP/EPAP Ratio 15/5 Blood Gas Notified Whom JLD Blood Gas Notified Time 07/25/2016 2:58:57 PM Bedside Glucose 165 236 H 206 Test 07/25/16 20:03 07/26/16 01:29 07/26/16 04:49 07/26/16 08:00 Bedside Glucose 180 209 176 White Blood Count 20.7 H Red Blood Count 3.22 L Hemoglobin 9.7 L Hematocrit 28.9 L Mean Corpuscular Volume 89.8 Mean Corpuscular Hemoglobin 30.1 Mean Corpuscular Hemoglobin Concent 33.6 Red Cell Distribution Width 19.8 H Platelet Count 60 L Mean Platelet Volume 13.6 H Neutrophils % 92.1 H Lymphocytes % 2.8 L Monocytes % 2.0 Eosinophils % 0.1 Basophils % 0.1 Nucleated Red Blood Cells % 0.0 Neutrophils # 19.1 H Lymphocytes # 0.6 L Monocytes # 0.4 Eosinophils # 0.0 Basophils # 0.0 Nucleated Red Blood Cells # 0.0 Sodium Level 141 Potassium Level 3.9 Chloride Level 106 Carbon Dioxide Level 21 Anion Gap 18 H Blood Urea Nitrogen 68 H Creatinine 2.91 H Glucose Level 171 Calcium Level 9.1 Phosphorus Level 4.1 Magnesium Level 2.3 Total Bilirubin 9.2 H Direct Bilirubin 8.40 H Indirect Bilirubin 0.8 Aspartate Amino Transf (AST/SGOT) 132 H Alanine Aminotransferase (ALT/SGPT) 93 H Alkaline Phosphatase 141 H Total Protein 6.0 #L Albumin 3.1 L Test 07/26/16 08:35 Bedside Glucose 173 Medications Medications Current Medications Ondansetron HCl (Zofran Inj) 4 mg Q6H PRN IV NAUSEA AND/OR VOMITING Last administered on 07/26/16 08:10; Admin Dose 4 MG; Start 06/30/16 at 16:30 Acetaminophen (Tylenol Tab) 650 mg Q6H PRN PO PAIN LEVEL 1-3 OR FEVER Last administered on 07/05/16 19:31; Admin Dose 650 MG; Start 06/30/16 at 16:30 Acetaminophen (Tylenol Supp) 650 mg Q6H PRN [place] PAIN LEVEL 1-3 OR FEVER; Start 06/30/16 at 16:30 Acetaminophen/ Hydrocodone Bitart ([place] (5/325)) 1 tab Q6H PRN PO MODERATE PAIN LEVEL 4-6 Last administered on 07/18/16 00:29; Admin Dose 1 TAB; Start at 16:30 Acetaminophen/ Hydrocodone Bitart ([place] (5/325)) 2 tab Q6H PRN PO SEVERE PAIN LEVEL 7-10 Last administered on 07/10/16 13:15; Admin Dose 2 TAB; Start at 16:30 Docusate Sodium (Colace) 100 mg Q12H PRN PO CONSTIPATION; Start 06/30/16 at 16: 30 Magnesium Hydroxide (Milk Of Mag) 30 ml DAILY PRN PO CONSTIPATION; Start at 16:30 Bisacodyl (Dulcolax Supp) 10 mg DAILY PRN [place] CONSTIPATION; Start 06/30/16 at 16 :30 Pantoprazole 40 mg 40 mg DAILY@06 IV Last administered on 07/26/16 05:52; Admin Dose 40 MG; Start 07/01/16 at 06:00 Erythromycin Lactobionate/ Sodium Chloride (Erythromycin Lactobionate/NS) 100 ml @ 100 mls/hr Q6 IVPB Last administered on 07/26/16 05:51; Admin Dose 100 MLS/HR; Start 07/09/16 at 00:00 Albuterol (Ventolin Hfa) 2 puff Q4H PRN INH SHORTNESS OF BREATH Last administered on 07/20/16 08:56; Admin Dose 2 PUFF; Start 07/14/16 at 22:00 Ipratropium [place] (Atrovent Hfa) 4 puff Q4H PRN INH SHORTNESS OF BREATH Last administered on 07/20/16 08:55; Admin Dose 4 PUFF; Start 07/14/16 at 22:00 Metoclopramide HCl (Reglan) 5 mg Q8 IV Last administered on 07/26/16 05:54; Admin Dose 5 MG; Start 07/18/16 at 22:00 Diagnostic Test (Pha) 1 ea 1 ea Q4 XX Last administered on 07/26/16 08:55; Admin Dose 1 EA; Start 07/19/16 at 13:00 Total Parenteral Nutrition (Tpn) 1,000 ml @ 30 mls/hr Q24H IV Last administered on 07/25/16 16:13; Admin Dose 30 MLS/HR; Start 07/19/16 at 14:00 Morphine Sulfate 4 mg 4 mg Q4H PRN IV SEVERE PAIN LEVEL 7-10 Last administered on 07/26/16 09:03; Admin Dose 4 MG; Start 07/22/16 at 16:30 Linezolid 300 ml @ 300 mls/hr Q12 IVPB Last administered on 07/26/16 08:54; Admin Dose 300 MLS/HR; Start 07/24/16 at 21:00 Metronidazole 250 mg/N/A 50 ml @ 50 mls/hr Q8 IVPB Last administered on 05:52; Admin Dose 50 MLS/HR; Start 07/24/16 at 22:00 Trimethoprim/ Sulfamethoxazole/ Dextrose (Bactrim/D5W) 525 ml @ 350 mls/hr Q24H IVPB Last administered on 07/25/16 15:07; Admin Dose 350 MLS/HR; Start at 14:00 Insulin Aspart (Novolog Insulin Pen) NOVOLOG *MILD* ALGORITHM Q4 SC Last administered on 07/26/16 09:12; Admin Dose 1 UNIT; Start 07/25/16 at 17:00 Miscellaneous Information 1 ea NOTE XX ; Start 07/25/16 at 17:30 Glucose (Glutose) 15 gm Q15M PRN PO DECREASED GLUCOSE; Start 07/25/16 at 17:30 Glucose (Glutose) 22.5 gm Q15M PRN PO DECREASED GLUCOSE; Start 07/25/16 at 17: 30 Dextrose (D50w Syringe) 25 ml Q15M PRN IV DECREASED GLUCOSE; Start 07/25/16 at 17:30 Dextrose (D50w Syringe) 50 ml Q15M PRN IV DECREASED GLUCOSE; Start 07/25/16 at 17:30 Glucagon (Glucagen) 1 mg Q15M PRN IM DECREASED GLUCOSE; Start 07/25/16 at 17:30 Glucose (Glutose) 15 gm Q15M PRN BUCCAL DECREASED GLUCOSE; Start 07/25/16 at 17 :[address] July 26, 2016 10:27
--- NOTE | 2016-07-26 11:31 | PN ---
Date/Time of Note Date/Time of Note DATE: 07/26/16 TIME: 11:28 Assessment/Plan VTE Prophylaxis VTE Prophylaxis Intervention: contraindicated, SCD's VTE Contraindication Reason: thrombocytopenia Lines/Catheters IV Catheter Type (from Nrs): JORDY Urinary Cath still in place: Yes Reason Cath still needed: urinary retention Assessment/Plan Chief Complaint/Hosp Course Assessment/Plan: 60 year old male with metastatic uroepithelial cancer who had presented during the last admission with gastric outlet obstruction status post duodenal stent 06/02/16. Has since been diagnosed with metastatic urothelial cancer. Patient now readmitted with sepsis with abdominal pain. 1. Septic Shock 2/ Aspiration PNA : Now off pressors, leukocytosis worsening with bandemia. Biliary fluid cultures growing multiple organisms (MDR - see cx results). - Continue abx for pneumonia / infected biliary tract /possibly infected duodenal stent, f/u ID rec's - Overall condition is very unfortunate, patient's duodenal mass continues to pose a problem, however patient remains too unstable for chemotherapy or GI intervention - respiratory status also worsening, on BiPAP continuously the last 48 hrs, f /u pulm rec's. 2. Transaminitis with Hyperbilirubinemia 2nd biliary obstruction from metastatic cancer - Status post radiologic evaluation of biliary catheter July / findings show catheter in good position, but common and bile duct blocked by duodenal mass. LFT's slightly more elevated again today as well. - monitor LFT's, f/u GI rec's regarding any possible further procedures for biliary stent - f/u abd U/S as well (ordered by GI team) 3. Metastatic Urothelial cancer with possible carcinomatosis - CT A/P demonstrates infiltrative neoplasm involving the cecum, ascending colon and hepatic flexure with extension of tumor to the serosa involving the lateral wall of the duodenum. This has advanced as compared to 05/27/2016. - per heme/Onc, not a candidate for chemo at this time until more medically stable 4. Tumor Obstructed duodenum with gastric outlet obstruction s/p duodenal stent 06/02/16 and with new ERCP showing tumor eroding stent and completely obstructing lumen - see # 2, f/u Heme Onc and GI rec's 5. Steatosis - monitor LFT's 6. Acute Respiratory Failure secondary to aspiration pneumonia: Extubated , now on BiPAP 7. Acute kidney injury secondary to acute tubular necrosis from septic shock and also contributing vancomycin requiring HD - Continue HD for CHARITY and pulm fluid overload / status post albumin and Lasix 8. S/p ecoli bacteremia and pseudomonas UTI - abx, f/u ID rec's 9. Chelsy UTI - on fluconazole 10. TPN therapy - Continue TPN until patient is cleared for a diet /ice chips should be safe for now / strict aspiration precautions / NG tube to intermittent suction Problems: Subjective 24 Hr Interval Summary Free Text/Dictation Pt still on BiPAP, on TPN, no fevers. Seen by GI team who ordered abd U/S to evaluate for possible ascities. Had partial HD per notes yesterday (was not able to tolerate full HD). Exam/Review of Systems Vital Signs Vitals Vital Signs Date Time Temp Pulse Resp B/P Pulse Ox O2 Delivery O2 Flow Rate FiO2 07/26/16 11:14 98.4 118 18 98/61 96 07/26/16 09:55 40 07/25/16 04:23 BIPAP 07/25/16 03:55 6.0 Intake and Output 07/25/16 07/25/16 07/26/16 15:00 23:00 07:00 Intake Total 300 ml 1335 ml 300 ml Output Total 1300 ml 50 ml 10 ml Balance -1000 ml 1285 ml 290 ml Exam Constitutional: on BiPAP, in mild distress ENMT: icteric ++ Respiratory: clear to auscultation / diminished significantly on the right with coarse crackles on the left Cardiovascular: regular rate and rhythm Gastrointestinal: soft, biliary drainage still in place with minimal greenish drain No distended his office dysphagia Musculoskeletal: Daniel edema pitting / diffuse anasarca Neuro: no focal deficits Results Result Diagram: 07/26/16 0800 07/26/16 0800 Results 24 hrs Laboratory Tests Test 07/25/16 11:32 07/25/16 12:24 07/25/16 16:51 07/25/16 18:01 Blood Gas Specimen Source Blood arterial Arterial Blood Date Drawn 07/25/2016 2:45:14 PM Arterial Blood pH (Temp corrected) 7.399 Arterial Blood pCO2 (Temp correct) 38.3 Arterial Blood pO2 (Temp corrected) 90.8 Arterial Blood HCO3 23.1 Arterial Blood Base Excess -1.4 Arterial Blood Oxygen Saturation 96.2 Og Test ACCEPTAB Arterial Blood Gas Puncture Site Right Radial Arterial Blood Carboxyhemoglobin 0.3 Arterial Blood Methemoglobin 0.5 Blood Gas A-a O2 Differential 150.4 H Oxyhemoglobin Percent 95.4 Total Hemoglobin 10.4 L Blood Gas Temperature 37.0 Blood Gas Respiration Rate 16.0 Blood Gas Actual Respiration Rate 34 Blood Gas Modality MASK - BIPAP FiO2 40.0 Blood Gas IPAP/EPAP Ratio 15 Blood Gas Notified Whom JLD Blood Gas Notified Time 07/25/2016 2:58:57 PM Bedside Glucose 165 236 H 206 Test 07/25/16 20:03 07/26/16 01:29 07/26/16 04:49 07/26/16 08:00 Bedside Glucose 180 209 176 White Blood Count 20.7 H Red Blood Count 3.22 L Hemoglobin 9.7 L Hematocrit 28.9 L Mean Corpuscular Volume 89.8 Mean Corpuscular Hemoglobin 30.1 Mean Corpuscular Hemoglobin Concent 33.6 Red Cell Distribution Width 19.8 H Platelet Count 60 L Mean Platelet Volume 13.6 H Neutrophils % 92.1 H Lymphocytes % 2.8 L Monocytes % 2.0 Eosinophils % 0.1 Basophils % 0.1 Nucleated Red Blood Cells % 0.0 Neutrophils # 19.1 H Lymphocytes # 0.6 L Monocytes # 0.4 Eosinophils # 0.0 Basophils # 0.0 Nucleated Red Blood Cells # 0.0 Sodium Level 141 Potassium Level 3.9 Chloride Level 106 Carbon Dioxide Level 21 Anion Gap 18 H Blood Urea Nitrogen 68 H Creatinine 2.91 H Glucose Level 171 Calcium Level 9.1 Phosphorus Level 4.1 Magnesium Level 2.3 Total Bilirubin 9.2 H Direct Bilirubin 8.40 H Indirect Bilirubin 0.8 Aspartate Amino Transf (AST/SGOT) 132 H Alanine Aminotransferase (ALT/SGPT) 93 H Alkaline Phosphatase 141 H Total Protein 6.0 #L Albumin 3.1 L Test 07/26/16 08:35 Bedside Glucose 173 Medications Medications Current Medications Ondansetron HCl (Zofran Inj) 4 mg Q6H PRN IV NAUSEA AND/OR VOMITING Last administered on 07/26/16 08:10; Admin Dose 4 MG; Start 06/30/16 at 16:30 Acetaminophen (Tylenol Tab) 650 mg Q6H PRN PO PAIN LEVEL 1-3 OR FEVER Last administered on 07/05/16 19:31; Admin Dose 650 MG; Start 06/30/16 at 16:30 Acetaminophen (Tylenol Supp) 650 mg Q6H PRN [place] PAIN LEVEL 1-3 OR FEVER; Start 06/30/16 at 16:30 Acetaminophen/ Hydrocodone Bitart ([place] (5/325)) 1 tab Q6H PRN PO MODERATE PAIN LEVEL 4-6 Last administered on 07/18/16 00:29; Admin Dose 1 TAB; Start at 16:30 Acetaminophen/ Hydrocodone Bitart ([place] (5/325)) 2 tab Q6H PRN PO SEVERE PAIN LEVEL 7-10 Last administered on 07/10/16 13:15; Admin Dose 2 TAB; Start at 16:30 Docusate Sodium (Colace) 100 mg Q12H PRN PO CONSTIPATION; Start 06/30/16 at 16: 30 Magnesium Hydroxide (Milk Of Mag) 30 ml DAILY PRN PO CONSTIPATION; Start at 16:30 Bisacodyl (Dulcolax Supp) 10 mg DAILY PRN [place] CONSTIPATION; Start 06/30/16 at 16 :30 Pantoprazole 40 mg 40 mg DAILY@06 IV Last administered on 07/26/16 05:52; Admin Dose 40 MG; Start 07/01/16 at 06:00 Erythromycin Lactobionate/ Sodium Chloride (Erythromycin Lactobionate/NS) 100 ml @ 100 mls/hr Q6 IVPB Last administered on 07/26/16 05:51; Admin Dose 100 MLS/HR; Start 07/09/16 at 00:00 Albuterol (Ventolin Hfa) 2 puff Q4H PRN INH SHORTNESS OF BREATH Last administered on 07/20/16 08:56; Admin Dose 2 PUFF; Start 07/14/16 at 22:00 Ipratropium [place] (Atrovent Hfa) 4 puff Q4H PRN INH SHORTNESS OF BREATH Last administered on 07/20/16 08:55; Admin Dose 4 PUFF; Start 07/14/16 at 22:00 Metoclopramide HCl (Reglan) 5 mg Q8 IV Last administered on 07/26/16 05:54; Admin Dose 5 MG; Start 07/18/16 at 22:00 Diagnostic Test (Pha) 1 ea 1 ea Q4 XX Last administered on 07/26/16 08:55; Admin Dose 1 EA; Start 07/19/16 at 13:00 Total Parenteral Nutrition (Tpn) 1,000 ml @ 30 mls/hr Q24H IV Last administered on 07/25/16 16:13; Admin Dose 30 MLS/HR; Start 07/19/16 at 14:00 Morphine Sulfate 4 mg 4 mg Q4H PRN IV SEVERE PAIN LEVEL 7-10 Last administered on 07/26/16 09:03; Admin Dose 4 MG; Start 07/22/16 at 16:30 Linezolid 300 ml @ 300 mls/hr Q12 IVPB Last administered on 07/26/16 08:54; Admin Dose 300 MLS/HR; Start 07/24/16 at 21:00 Metronidazole 250 mg/N/A 50 ml @ 50 mls/hr Q8 IVPB Last administered on 05:52; Admin Dose 50 MLS/HR; Start 07/24/16 at 22:00 Trimethoprim/ Sulfamethoxazole/ Dextrose (Bactrim/D5W) 525 ml @ 350 mls/hr Q24H IVPB Last administered on 07/25/16 15:07; Admin Dose 350 MLS/HR; Start at 14:00 Insulin Aspart (Novolog Insulin Pen) NOVOLOG *MILD* ALGORITHM Q4 SC Last administered on 07/26/16 09:12; Admin Dose 1 UNIT; Start 07/25/16 at 17:00 Miscellaneous Information 1 ea NOTE XX ; Start 07/25/16 at 17:30 Glucose (Glutose) 15 gm Q15M PRN PO DECREASED GLUCOSE; Start 07/25/16 at 17:30 Glucose (Glutose) 22.5 gm Q15M PRN PO DECREASED GLUCOSE; Start 07/25/16 at 17: 30 Dextrose (D50w Syringe) 25 ml Q15M PRN IV DECREASED GLUCOSE; Start 07/25/16 at 17:30 Dextrose (D50w Syringe) 50 ml Q15M PRN IV DECREASED GLUCOSE; Start 07/25/16 at 17:30 Glucagon (Glucagen) 1 mg Q15M PRN IM DECREASED GLUCOSE; Start 07/25/16 at 17:30 Glucose (Glutose) 15 gm Q15M PRN BUCCAL DECREASED GLUCOSE; Start 5/22/17 at 17 :30 NEL DEL ANGEL July 26, 2016 11:31
[2016-07-26] MEDS: TRIMETHOPRIM/SULFAMETHOXAZOLE 25 ML in DEXTROSE 5% 500 ML IVPB SCH (13:18)
[2016-07-26] MEDS: TPN 1,000 ML IV SCH (14:00)
--- NOTE | 2016-07-26 14:35 | CONS ---
Date/Time of Note Date/Time of Note DATE: 07/26/16 TIME: 14:33 Assessment/Plan Assessment/Plan Chief Complaint/Hosp Course SUBJECTIVE: The patient is awake, on BiPAP, looks comfortable, no fevers. MICROBIOLOGY: Gastric fluid grew Stenotrophomonas maltophilia and VRE. ANTIMICROBIALS: 1. Bactrim. 2. Zyvox 3. Flagyl. INDWELLINGS: Port-A-Cath [place], [place], and intraabdominal drainage catheter. PHYSICAL EXAMINATION: GENERAL: Chronically ill-appearing, elderly man who is in no distress. HEENT: Head atraumatic, normocephalic. Sclerae anicteric. Buccal mucosa dry. NECK: Supple. CHEST: Rise symmetrical. Breath sounds diminished to bases with scattered rhonchi. HEART: S1, S2. ABDOMEN: Soft, bowel sounds present. EXTREMITIES: Without cyanosis. ASSESSMENT: 1. Sepsis with multisystem organ failure. 2. Peritonitis. 3. Status post Escherichia coli bacteremia on admission. 4. Pneumonia with acute respiratory failure. 5. Biliary obstruction. 6. Acute renal failure, hemodialysis dependent. 7. Diabetes. 8. Metastatic urothelial cancer. 9. Cachexia/failure to thrive PLAN: Remains unchanged, continue abx, prognosis poor [facility] staff Problems: Consultation Date/Type/Reason Admit Date/Time Jun 30, 2016 at 15:42 Initial Consult Date 06/30/16 Type of Consultation: ID Referring Provider: GAMALIEL HAIR MD Exam/Review of Systems Vital Signs Vitals Vital Signs Date Time Temp Pulse Resp B/P Pulse Ox O2 Delivery O2 Flow Rate FiO2 07/26/16 12:11 123 07/26/16 11:14 98.4 18 98/61 96 07/26/16 09:55 40 07/25/16 04:23 BIPAP 07/25/16 03:55 6.0 Intake and Output 07/25/16 07/25/16 07/26/16 15:00 23:00 07:00 Intake Total 300 ml 1335 ml 300 ml Output Total 1300 ml 50 ml 10 ml Balance -1000 ml 1285 ml 290 ml Results Result Diagram: 07/26/16 0800 07/26/16 0800 Results 24 hrs Laboratory Tests Test 07/25/16 16:51 07/25/16 18:01 07/25/16 20:03 07/26/16 01:29 Bedside Glucose 236 H 206 180 209 Test 07/26/16 04:49 07/26/16 08:00 07/26/16 08:35 07/26/16 11:43 Bedside Glucose 176 173 160 White Blood Count 20.7 H Red Blood Count 3.22 L Hemoglobin 9.7 L Hematocrit 28.9 L Mean Corpuscular Volume 89.8 Mean Corpuscular Hemoglobin 30.1 Mean Corpuscular Hemoglobin Concent 33.6 Red Cell Distribution Width 19.8 H Platelet Count 60 L Mean Platelet Volume 13.6 H Neutrophils % 92.1 H Lymphocytes % 2.8 L Monocytes % 2.0 Eosinophils % 0.1 Basophils % 0.1 Nucleated Red Blood Cells % 0.0 Neutrophils # 19.1 H Lymphocytes # 0.6 L Monocytes # 0.4 Eosinophils # 0.0 Basophils # 0.0 Nucleated Red Blood Cells # 0.0 Sodium Level 141 Potassium Level 3.9 Chloride Level 106 Carbon Dioxide Level 21 Anion Gap 18 H Blood Urea Nitrogen 68 H Creatinine 2.91 H Glucose Level 171 Calcium Level 9.1 Phosphorus Level 4.1 Magnesium Level 2.3 Total Bilirubin 9.2 H Direct Bilirubin 8.40 H Indirect Bilirubin 0.8 Aspartate Amino Transf (AST/SGOT) 132 H Alanine Aminotransferase (ALT/SGPT) 93 H Alkaline Phosphatase 141 H Total Protein 6.0 #L Albumin 3.1 L Medications Medications Current Medications Ondansetron HCl (Zofran Inj) 4 mg Q6H PRN IV NAUSEA AND/OR VOMITING Last administered on 07/26/16 08:10; Admin Dose 4 MG; Start 06/30/16 at 16:30 Acetaminophen (Tylenol Tab) 650 mg Q6H PRN PO PAIN LEVEL 1-3 OR FEVER Last administered on 07/05/16 19:31; Admin Dose 650 MG; Start 06/30/16 at 16:30 Acetaminophen (Tylenol Supp) 650 mg Q6H PRN [place] PAIN LEVEL 1-3 OR FEVER; Start 06/30/16 at 16:30 Acetaminophen/ Hydrocodone Bitart ([place] (5/325)) 1 tab Q6H PRN PO MODERATE PAIN LEVEL 4-6 Last administered on 07/18/16 00:29; Admin Dose 1 TAB; Start at 16:30 Acetaminophen/ Hydrocodone Bitart ([place] (5/325)) 2 tab Q6H PRN PO SEVERE PAIN LEVEL 7-10 Last administered on 07/10/16 13:15; Admin Dose 2 TAB; Start at 16:30 Docusate Sodium (Colace) 100 mg Q12H PRN PO CONSTIPATION; Start 06/30/16 at 16: 30 Magnesium Hydroxide (Milk Of Mag) 30 ml DAILY PRN PO CONSTIPATION; Start at 16:30 Bisacodyl (Dulcolax Supp) 10 mg DAILY PRN [place] CONSTIPATION; Start 06/30/16 at 16 :30 Pantoprazole 40 mg 40 mg DAILY@06 IV Last administered on 07/26/16 05:52; Admin Dose 40 MG; Start 07/01/16 at 06:00 Erythromycin Lactobionate/ Sodium Chloride (Erythromycin Lactobionate/NS) 100 ml @ 100 mls/hr Q6 IVPB Last administered on 07/26/16 11:29; Admin Dose 100 MLS/HR; Start 07/09/16 at 00:00 Albuterol (Ventolin Hfa) 2 puff Q4H PRN INH SHORTNESS OF BREATH Last administered on 07/20/16 08:56; Admin Dose 2 PUFF; Start 07/14/16 at 22:00 Ipratropium [place] (Atrovent Hfa) 4 puff Q4H PRN INH SHORTNESS OF BREATH Last administered on 07/20/16 08:55; Admin Dose 4 PUFF; Start 07/14/16 at 22:00 Metoclopramide HCl (Reglan) 5 mg Q8 IV Last administered on 07/26/16 13:18; Admin Dose 5 MG; Start 07/18/16 at 22:00 Diagnostic Test (Pha) 1 ea 1 ea Q4 XX Last administered on 07/26/16 13:26; Admin Dose 1 EA; Start 07/19/16 at 13:00 Total Parenteral Nutrition (Tpn) 1,000 ml @ 30 mls/hr Q24H IV Last administered on 07/25/16 16:13; Admin Dose 30 MLS/HR; Start 07/19/16 at 14:00 Morphine Sulfate 4 mg 4 mg Q4H PRN IV SEVERE PAIN LEVEL 7-10 Last administered on 07/26/16 09:03; Admin Dose 4 MG; Start 5/19/17 at 16:30 Linezolid 300 ml @ 300 mls/hr Q12 IVPB Last administered on 07/26/16 08:54; Admin Dose 300 MLS/HR; Start 07/24/16 at 21:00 Metronidazole 250 mg/N/A 50 ml @ 50 mls/hr Q8 IVPB Last administered on 13:18; Admin Dose 50 MLS/HR; Start 07/24/16 at 22:00 Trimethoprim/ Sulfamethoxazole/ Dextrose (Bactrim/D5W) 525 ml @ 350 mls/hr Q24H IVPB Last administered on 07/26/16 13:18; Admin Dose 350 MLS/HR; Start at 14:00 Insulin Aspart (Novolog Insulin Pen) NOVOLOG *MILD* ALGORITHM Q4 SC Last administered on 07/26/16 13:19; Admin Dose 1 UNIT; Start 07/25/16 at 17:00 Miscellaneous Information 1 ea NOTE XX ; Start 07/25/16 at 17:30 Glucose (Glutose) 15 gm Q15M PRN PO DECREASED GLUCOSE; Start 07/25/16 at 17:30 Glucose (Glutose) 22.5 gm Q15M PRN PO DECREASED GLUCOSE; Start 07/25/16 at 17: 30 Dextrose (D50w Syringe) 25 ml Q15M PRN IV DECREASED GLUCOSE; Start 07/25/16 at 17:30 Dextrose (D50w Syringe) 50 ml Q15M PRN IV DECREASED GLUCOSE; Start 07/25/16 at 17:30 Glucagon (Glucagen) 1 mg Q15M PRN IM DECREASED GLUCOSE; Start 07/25/16 at 17:30 Glucose (Glutose) 15 gm Q15M PRN BUCCAL DECREASED GLUCOSE; Start 07/25/16 at 17 :30 MARIELA ROBIN NP July 26, 2016 14:35
--- NOTE | 2016-07-26 15:46 | RADRPT ---
PROCEDURE: US Abdomen limited . CLINICAL INDICATION: Ascites TECHNIQUE: Multiple real-time images were acquired of the patient's abdomen utilizing a high resol ution transducer. COMPARISON: 07/19/16 FINDINGS: There is a moderate amount of ascites. RPTAT: AA IMPRESSION: Moderate amount of ascites. .Anthony Ferguson MD, MD Date Time Electronically viewed and signed by .Anthony Ferguson MD, MD on 07/26/2016 15:45 .S/
--- NOTE | 2016-07-26 16:30 | CONS ---
Date/Time of Note Date/Time of Note DATE: 07/26/16 TIME: 16:28 Assessment/Plan Assessment/Plan Chief Complaint/Hosp Course 60 year old male with metastatic urothelial cancer who had presented during the last admission with gastric outlet obstruction status post duodenal stent . Has since been diagnosed with metastatic urothelial cancer. Patient now readmitted with sepsis with abdominal pain. He is currently in critical condition, intubated in the ICU # metastatic urothelial cancer - CT A/P demonstrates infiltrative neoplasm involving the cecum, ascending colon and hepatic flexure with extension of tumor to the serosa involving the lateral wall of the duodenum. This has advanced as compared to 05/27/2016. - I had planned to start gemcitabine 1000 mg/m2 D1, 8 and carboplatin AUC 4.5 D1 however needed to wait till bacteremia adequately treated and now patient with left lung aspiration pneumonia. Patient extubated 07/20/16. Given rapidly growing tumor, would want to start chemo ISSA when patient more stable, more ambulatory, infection adequately controlled and thrombocytopenia and hyperbilirubinemia improved. Would then need to start gemcitabine/carboplatin with dose adjustments depending on renal and hepatic function. Would use 50% of dose of carboplatin in ESRD on HD; would advise HD 6-12 hours after gemcitabine given with caution due to hyperbilirubinemia with initial dose 800 mg/m2. - discussed with Dr. De, duodenal stent obstructed by tumor, status post new internal biliary catheter 07/11/16. Plan for new duodenal stent when more stable. - Dr. Nolan to arrange for POLST form to be filled out - Hg has improved after blood transfusion and is now ~10 # Leukocytosis and thrombocytopenia, concerning for sepsis - WBC now 20K, Plt down to 60s. DIC panel not consistent with DIC. Concerning for sepsis. - Appreciate ID recs. Patient on fluconazole, bactrim, zyvox, flagyl. - Peripheral smear reviewed by pathology, showed increased wbcs, left shifted, bands, no blasts, no dysplastic features, no schistocytes, no leukoerythroblastic process # Elevated D-dimer > 10,000. Upper and lower extremity dopplers negative for DVT 07/21/16. # E. coli bacteremia - with sepsis secondary to biliary obstruction s/p attempted unsuccessful ERCP 07/03, s/p external percutaneous biliary drainage 07/05 - Last blood cultures were clear from 07/05/16 - will hold on removing the port for now. If ID feels it is necessary to remove and if bacteremia does not clear, will remove at that time # Biliary obstruction - s/p percutaneous biliary drain and status post new biliary catheter 07/11/16 - status post EGD that demonstrated gastric outlet obstruction with tumor growing over stent and almost complete obstructing lumen. - Now Bilirubin up to 9, plan for another biliary stent when more stable per GI. Cholangiogram 07/22/16 demonstrated 1. The biliary drainage catheter remains in satisfactory position. 2. Severe obstruction of the distal common bile duct due to the duodenal mass. 3. As seen previously, there is marked narrowing of the duodenum despite the presence of the metallic stent. - US Abdomen 07/19/16 demonstrated mild fatty infiltration of liver, new moderate ascites, mildly dilated CBD, 8 mm, decreased - Biliary fluid culture +stenotrophomonas, VRE, appreciate ID recs, patient on fluconazole, bactrim, zyvox, flagyl. # Diabetic Gastroparesis - cont reglan; erythromycin added as prokinetic agent per GI - on TPN # CHARITY - Acute kidney injury secondary to acute tubular necrosis from septic shock and also contributing vancomycin - cont HD per renal Problems: Consultation Date/Type/Reason Admit Date/Time Jun 30, 2016 at 15:42 Initial Consult Date 06/30/16 Type of Consultation: Oncology Referring Provider: GAAMLIEL HAIR MD 24 HR Interval Summary Free Text/Dictation Patient remains on BiPAP, has had more difficulty breathing. Exam/Review of Systems Vital Signs Vitals Vital Signs Date Time Temp Pulse Resp B/P Pulse Ox O2 Delivery O2 Flow Rate FiO2 07/26/16 15:20 116 91 40 07/26/16 15:19 97.8 18 59/34 07/25/16 04:23 BIPAP 07/25/16 03:55 6.0 Intake and Output 07/25/16 07/25/16 07/26/16 15:00 23:00 07:00 Intake Total 300 ml 1335 ml 330 ml Output Total 1300 ml 50 ml 10 ml Balance -1000 ml 1285 ml 320 ml Exam Constitutional: on BiPAP Respiratory: bibasilar crackles , no wheezing, labored breathing Cardiovascular: regular rate and rhythm Gastrointestinal: soft, No distended Musculoskeletal: nl extremities to inspection + deja HD catheter Results Result Diagram: 07/26/16 0800 07/26/16 0800 Results 24 hrs Laboratory Tests Test 07/25/16 16:51 07/25/16 18:01 07/25/16 20:03 07/26/16 01:29 Bedside Glucose 236 H 206 180 209 Test 07/26/16 04:49 07/26/16 08:00 07/26/16 08:35 07/26/16 11:43 Bedside Glucose 176 173 160 White Blood Count 20.7 H Red Blood Count 3.22 L Hemoglobin 9.7 L Hematocrit 28.9 L Mean Corpuscular Volume 89.8 Mean Corpuscular Hemoglobin 30.1 Mean Corpuscular Hemoglobin Concent 33.6 Red Cell Distribution Width 19.8 H Platelet Count 60 L Mean Platelet Volume 13.6 H Neutrophils % 92.1 H Lymphocytes % 2.8 L Monocytes % 2.0 Eosinophils % 0.1 Basophils % 0.1 Nucleated Red Blood Cells % 0.0 Neutrophils # 19.1 H Lymphocytes # 0.6 L Monocytes # 0.4 Eosinophils # 0.0 Basophils # 0.0 Nucleated Red Blood Cells # 0.0 Sodium Level 141 Potassium Level 3.9 Chloride Level 106 Carbon Dioxide Level 21 Anion Gap 18 H Blood Urea Nitrogen 68 H Creatinine 2.91 H Glucose Level 171 Calcium Level 9.1 Phosphorus Level 4.1 Magnesium Level 2.3 Total Bilirubin 9.2 H Direct Bilirubin 8.40 H Indirect Bilirubin 0.8 Aspartate Amino Transf (AST/SGOT) 132 H Alanine Aminotransferase (ALT/SGPT) 93 H Alkaline Phosphatase 141 H Total Protein 6.0 #L Albumin 3.1 L Medications Medications Current Medications Ondansetron HCl (Zofran Inj) 4 mg Q6H PRN IV NAUSEA AND/OR VOMITING Last administered on 07/26/16 08:10; Admin Dose 4 MG; Start 06/30/16 at 16:30 Acetaminophen (Tylenol Tab) 650 mg Q6H PRN PO PAIN LEVEL 1-3 OR FEVER Last administered on 07/05/16 19:31; Admin Dose 650 MG; Start 06/30/16 at 16:30 Acetaminophen (Tylenol Supp) 650 mg Q6H PRN MA PAIN LEVEL 1-3 OR FEVER; Start 06/30/16 at 16:30 Acetaminophen/ Hydrocodone Bitart ([place] (5/325)) 1 tab Q6H PRN PO MODERATE PAIN LEVEL 4-6 Last administered on 07/18/16 00:29; Admin Dose 1 TAB; Start at 16:30 Acetaminophen/ Hydrocodone Bitart ([place] (5/325)) 2 tab Q6H PRN PO SEVERE PAIN LEVEL 7-10 Last administered on 07/10/16 13:15; Admin Dose 2 TAB; Start at 16:30 Docusate Sodium (Colace) 100 mg Q12H PRN PO CONSTIPATION; Start 06/30/16 at 16: 30 Magnesium Hydroxide (Milk Of Mag) 30 ml DAILY PRN PO CONSTIPATION; Start at 16:30 Bisacodyl (Dulcolax Supp) 10 mg DAILY PRN MA CONSTIPATION; Start 06/30/16 at 16 :30 Pantoprazole 40 mg 40 mg DAILY@06 IV Last administered on 07/26/16 05:52; Admin Dose 40 MG; Start 07/01/16 at 06:00 Erythromycin Lactobionate/ Sodium Chloride (Erythromycin Lactobionate/NS) 100 ml @ 100 mls/hr Q6 IVPB Last administered on 07/26/16 11:29; Admin Dose 100 MLS/HR; Start 07/09/16 at 00:00 Albuterol (Ventolin Hfa) 2 puff Q4H PRN INH SHORTNESS OF BREATH Last administered on 07/20/16 08:56; Admin Dose 2 PUFF; Start 07/14/16 at 22:00 Ipratropium [place] (Atrovent Hfa) 4 puff Q4H PRN INH SHORTNESS OF BREATH Last administered on 07/20/16 08:55; Admin Dose 4 PUFF; Start 07/14/16 at 22:00 Metoclopramide HCl (Reglan) 5 mg Q8 IV Last administered on 07/26/16 13:18; Admin Dose 5 MG; Start 07/18/16 at 22:00 Diagnostic Test (Pha) 1 ea 1 ea Q4 XX Last administered on 07/26/16 13:26; Admin Dose 1 EA; Start 07/19/16 at 13:00 Total Parenteral Nutrition (Tpn) 1,000 ml @ 30 mls/hr Q24H IV Last administered on 07/25/16 16:13; Admin Dose 30 MLS/HR; Start 07/19/16 at 14:00 Morphine Sulfate 4 mg 4 mg Q4H PRN IV SEVERE PAIN LEVEL 7-10 Last administered on 07/26/16 15:56; Admin Dose 4 MG; Start 07/22/16 at 16:30 Linezolid 300 ml @ 300 mls/hr Q12 IVPB Last administered on 07/26/16 08:54; Admin Dose 300 MLS/HR; Start 07/24/16 at 21:00 Metronidazole 250 mg/N/A 50 ml @ 50 mls/hr Q8 IVPB Last administered on 13:18; Admin Dose 50 MLS/HR; Start 07/24/16 at 22:00 Trimethoprim/ Sulfamethoxazole/ Dextrose (Bactrim/D5W) 525 ml @ 350 mls/hr Q24H IVPB Last administered on 07/26/16 13:18; Admin Dose 350 MLS/HR; Start at 14:00 Insulin Aspart (Novolog Insulin Pen) NOVOLOG *MILD* ALGORITHM Q4 SC Last administered on 07/26/16 13:19; Admin Dose 1 UNIT; Start 07/25/16 at 17:00 Miscellaneous Information 1 ea NOTE XX ; Start 07/25/16 at 17:30 Glucose (Glutose) 15 gm Q15M PRN PO DECREASED GLUCOSE; Start 07/25/16 at 17:30 Glucose (Glutose) 22.5 gm Q15M PRN PO DECREASED GLUCOSE; Start 07/25/16 at 17: 30 Dextrose (D50w Syringe) 25 ml Q15M PRN IV DECREASED GLUCOSE; Start 07/25/16 at 17:30 Dextrose (D50w Syringe) 50 ml Q15M PRN IV DECREASED GLUCOSE; Start 07/25/16 at 17:30 Glucagon (Glucagen) 1 mg Q15M PRN IM DECREASED GLUCOSE; Start 07/25/16 at 17:30 Glucose (Glutose) 15 gm Q15M PRN BUCCAL DECREASED GLUCOSE; Start 07/25/16 at 17 :30 DARBY KNOWLES MD July 26, 2016 16:30
--- NOTE | 2016-07-26 17:49 | DES ---
Date/Time of Note Date/Time of Note DATE: 07/26/16 TIME: 17:33 Discharge/ Summary Admission/Discharge Info Admit Date/Time Jun 30, 2016 at 15:42 Discharge Date/Time Final Diagnosis 1. Septic Shock 2/2 Aspiration PNA 2. Transaminitis with Hyperbilirubinemia 2nd biliary obstruction from metastatic cancer 3. Metastatic Urothelial cancer with possible carcinomatosis - CT A/P demonstrates infiltrative neoplasm involving the cecum, ascending colon and hepatic flexure with extension of tumor to the serosa involving the lateral wall of the duodenum. 4. Tumor Obstructed duodenum with gastric outlet obstruction s/p duodenal stent 06/02/16 and with new ERCP showing tumor eroding stent and completely obstructing lumen 5. Steatosis 6. Acute Respiratory Failure secondary to aspiration pneumonia 7. Acute kidney injury secondary to acute tubular necrosis from septic shock and also contributing vancomycin requiring HD 8. S/p ecoli bacteremia and pseudomonas UTI 9. Chelsy UTI Preliminary Cause of 1. respiratory distress (days) 2. septic shock sec to aspiration PNA, UTI, bacteremia, and biliary obstruction from cancer (days) 3. Metastatic Urothelial cancer with possible carcinomatosis (weeks) Hospital Course 60 year old male with metastatic urothelial cancer who had presented during the last admission with gastric outlet obstruction status post duodenal stent . Diagnosed with metastatic urothelial cancer, and readmitted with sepsis with abdominal pain.Initially was intubated in the ICU. CT A/P demonstrated infiltrative neoplasm involving the cecum, ascending colon and hepatic flexure with extension of tumor to the serosa involving the lateral wall of the duodenum. This has advanced as compared to 05/27/2016. Plan by heme Onc was to start gemcitabine 1000 mg/m2 D1, 8 and carboplatin AUC 4.5 D1 however needed to wait till bacteremia adequately treated, unfortunately patient developed left lung aspiration pneumonia. Patient extubated 07/20/16. Case was discussed with GI Dr. De, duodenal stent found to be obstructed by tumor, status post new internal biliary catheter 07/11/16. Plan was for new duodenal stent when more stable. Palliative team Dr. Nolan to arrange for POLST form to be filled out, and pt was made DNR/DNI. Pt received blood transfusion, but found with Leukocytosis and thrombocytopenia, concerning for sepsis, sec to PNA and also found with E. coli bacteremia, sepsis also secondary to biliary obstruction s/p attempted unsuccessful ERCP 07/03, s/p external percutaneous biliary drainage 07/05/16. Pt found with Severe obstruction of the distal common bile duct due to the duodenal mass. US Abdomen 07/19/16 demonstrated mild fatty infiltration of liver, new moderate ascites, mildly dilated CBD, 8 mm, decreased , and Biliary fluid culture was + for stenotrophomonas, VRE, appreciate ID recs , patient placed on fluconazole, bactrim, zyvox, flagyl. Also found with Diabetic Gastroparesis, on TPN. Also tx for CHARITY. Unfortunately pt, although extubated, transferred out of ICU but required continous BIPAP, and on07/26, pt' s res status did not improve. Pt became hypotensive and went into asystole and at 16:14 on 07/26/2016. PE: - no response to pain or verbal stimuli - Pupils fixed/dilated slightly - no breath sounds or bowel sounds ausculated - no heart sounds heard - no pulses detected. Pending Labs/Cultures Laboratory Tests Test 07/25/16 18:01 07/25/16 20:03 07/26/16 01:29 07/26/16 04:49 Bedside Glucose 206mg/dL (70-220) 180mg/dL (70-220) 209mg/dL (70-220) 176mg/dL (70-220) Test 07/26/16 08:00 07/26/16 08:35 07/26/16 11:43 White Blood Count 20.710^3/ul (4.8-10.8) Red Blood Count 3.2210^6/ul (4.70-6.10) Hemoglobin 9.7g/dl (14.0-18.0) Hematocrit 28.9% (42.0-52.0) Mean Corpuscular Volume 89.8fl (82.0-101.0) Mean Corpuscular Hemoglobin 30.1pg (29.0-33.0) Mean Corpuscular Hemoglobin Concent 33.6g/dl (32.0-37.0) Red Cell Distribution Width 19.8% (11.5-14.5) Platelet Count 6010^3/UL (140-415) Mean Platelet Volume 13.6fl (7.4-10.4) Neutrophils % 92.1% (39.0-77.0) Lymphocytes % 2.8% (15.0-51.0) Monocytes % 2.0% (0.0-11.0) Eosinophils % 0.1% (0.0-7.0) Basophils % 0.1% (0.0-2.0) Nucleated Red Blood Cells % 0.0/100WBC (0.0-0.0) Neutrophils # 19.110^3/ul (1.6-7.5) Lymphocytes # 0.610^3/ul (0.8-2.9) Monocytes # 0.410^3/ul (0.3-0.9) Eosinophils # 0.010^3/ul (0.0-0.5) Basophils # 0.010^3/ul (0.0-0.1) Nucleated Red Blood Cells # 0.010^3/ul (0.0-0.0) Sodium Level 141mmol/L (135-144) Potassium Level 3.9mmol/L (3.5-5.1) Chloride Level 106mmol/L (97-110) Carbon Dioxide Level 21mmol/L (21-31) Anion Gap 18 (8-16) Blood Urea Nitrogen 68mg/dl (7-20) Creatinine 2.91mg/dl (0.61-1.24) Glucose Level 171mg/dl (70-220) Calcium Level 9.1mg/dl (8.4-10.2) Phosphorus Level 4.1mg/dl (2.5-4.9) Magnesium Level 2.3mg/dl (1.7-2.5) Total Bilirubin 9.2mg/dl (0.2-1.3) Direct Bilirubin 8.40mg/dl (0.00-0.20) Indirect Bilirubin 0.8mg/dl (0-1.1) Aspartate Amino Transf (AST/SGOT) 132IU/L (15-46) Alanine Aminotransferase (ALT/SGPT) 93IU/L (13-69) Alkaline Phosphatase 141IU/L (42-121) Total Protein 6.0g/dl (6.1-8.1) Albumin 3.1g/dl (3.3-4.9) Bedside Glucose 173mg/dL (70-220) 160mg/dL (70-220) RANEL HERNANDEZ July 26, 2016 17:45
--- NOTE | 2016-07-26 18:47 | CONS ---
Date/Time of Note Date/Time of Note DATE: 07/26/16 TIME: 18:46 Assessment/Plan Assessment/Plan Additional Assessment/Plan TIME: 12:29 Assessment/Plan Assessment/Plan Additional Assessment/Plan IMPRESSION: 1. Biliary obstruction. Status post biliary stent, bilirubin is now going up, radiologist needs to evaluate biliary drain 2. Gram negative bacteremia, either from the urine or from the biliary system. 3. 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 4. 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 Gastric outlet obstruction secondary to tumor growing over the proximal part of the metallic stent in the duodenum. 6. Aspiration pneumonia 7. Renal failure, it is multifactorial 8. UTI with Pseudomonas and Chelsy in the urine, E. coli in the blood 9. 4+ pedal edema, fluid overload 10. Respiratory failure successfully extubated 11. Ascites new problem Plan Continue NG tube to intermittent suction since the Patient has got gastric outlet obstruction. Biliary obstruction status post plastic biliary stent both external and internal Respiratory failure patient is on vent Continue antibiotic When patient is more stable will place another duodenal stent. Patient is not a candidate for surgical bypass ID follow-up Continue dialysis Monitor liver function if bilirubin keeps going up and radiologist needs to evaluate biliary drainage TPN Sonogram of the liver, revealed fatty liver no obstruction Cholangiogram done yesterday on 07/22/2016 showed complete obstruction of the distal part of the bile duct. Patient bilirubin is going up due to the obstruction. His prognosis remains poor. Paracentesis if family agrees Consultation Date/Type/Reason Admit Date/Time Jun 30, 2016 at 15:42 Initial Consult Date 06/30/16 Type of Consultation: Oncology Referring Provider: GAMALIEL HAIR MD 24 HR Interval Summary Free Text/Dictation Complains of abdominal distention Subjective hx not possible: pt critical Exam/Review of Systems Vital Signs Vitals Vital Signs Date Time Temp Pulse Resp B/P Pulse Ox O2 Delivery O2 Flow Rate FiO2 07/26/16 16:14 0 07/26/16 15:20 91 40 07/26/16 15:19 97.8 18 59/34 07/25/16 04:23 BIPAP 07/25/16 03:55 6.0 Intake and Output 07/25/16 07/25/16 07/26/16 15:00 23:00 07:00 Intake Total 300 ml 1335 ml 330 ml Output Total 1300 ml 50 ml 10 ml Balance -1000 ml 1285 ml 320 ml Exam Constitutional: alert, oriented, well developed Psych: nl mood/affect, no complaints Head: atraumatic, normocephalic Eyes: EOMI, PERRL, nl conjunctiva, nl lids, nl sclera ENMT: nl external ears & nose, nl lips & teeth, nl nasal mucosa & septum Neck: non-tender, supple Respiratory: clear to auscultation, normal air movement Cardiovascular: nl pulses, regular rate and rhythm Gastrointestinal: nl liver, spleen, non-tender, soft Musculoskeletal: nl extremities to inspection, nl gait and stance Extremities: normal pulses Neurological: [employer] II-XII intact, nl mental status, nl speech, nl strength Skin: nl turgor, No rash or lesions Lymph: nl lymph nodes Results Result Diagram: 07/26/16 0800 07/26/16 0800 Results 24 hrs Laboratory Tests Test 07/25/16 20:03 07/26/16 01:29 07/26/16 04:49 07/26/16 08:00 Bedside Glucose 180 209 176 White Blood Count 20.7 H Red Blood Count 3.22 L Hemoglobin 9.7 L Hematocrit 28.9 L Mean Corpuscular Volume 89.8 Mean Corpuscular Hemoglobin 30.1 Mean Corpuscular Hemoglobin Concent 33.6 Red Cell Distribution Width 19.8 H Platelet Count 60 L Mean Platelet Volume 13.6 H Neutrophils % 92.1 H Lymphocytes % 2.8 L Monocytes % 2.0 Eosinophils % 0.1 Basophils % 0.1 Nucleated Red Blood Cells % 0.0 Neutrophils # 19.1 H Lymphocytes # 0.6 L Monocytes # 0.4 Eosinophils # 0.0 Basophils # 0.0 Nucleated Red Blood Cells # 0.0 Sodium Level 141 Potassium Level 3.9 Chloride Level 106 Carbon Dioxide Level 21 Anion Gap 18 H Blood Urea Nitrogen 68 H Creatinine 2.91 H Glucose Level 171 Calcium Level 9.1 Phosphorus Level 4.1 Magnesium Level 2.3 Total Bilirubin 9.2 H Direct Bilirubin 8.40 H Indirect Bilirubin 0.8 Aspartate Amino Transf (AST/SGOT) 132 H Alanine Aminotransferase (ALT/SGPT) 93 H Alkaline Phosphatase 141 H Total Protein 6.0 #L Albumin 3.1 L Test 07/26/16 08:35 07/26/16 11:43 Bedside Glucose 173 160 Medications Medications Current Medications Ondansetron HCl (Zofran Inj) 4 mg Q6H PRN IV NAUSEA AND/OR VOMITING Last administered on 07/26/16 08:10; Admin Dose 4 MG; Start 06/30/16 at 16:30 Acetaminophen (Tylenol Tab) 650 mg Q6H PRN PO PAIN LEVEL 1-3 OR FEVER Last administered on 07/05/16 19:31; Admin Dose 650 MG; Start 06/30/16 at 16:30 Acetaminophen (Tylenol Supp) 650 mg Q6H PRN [place] PAIN LEVEL 1-3 OR FEVER; Start 06/30/16 at 16:30 Acetaminophen/ Hydrocodone Bitart ([place] (5/325)) 1 tab Q6H PRN PO MODERATE PAIN LEVEL 4-6 Last administered on 07/18/16 00:29; Admin Dose 1 TAB; Start at 16:30 Acetaminophen/ Hydrocodone Bitart ([place] (5/325)) 2 tab Q6H PRN PO SEVERE PAIN LEVEL 7-10 Last administered on 07/10/16 13:15; Admin Dose 2 TAB; Start at 16:30 Docusate Sodium (Colace) 100 mg Q12H PRN PO CONSTIPATION; Start 06/30/16 at 16: 30 Magnesium Hydroxide (Milk Of Mag) 30 ml DAILY PRN PO CONSTIPATION; Start at 16:30 Bisacodyl (Dulcolax Supp) 10 mg DAILY PRN [place] CONSTIPATION; Start 06/30/16 at 16 :30 Pantoprazole 40 mg 40 mg DAILY@06 IV Last administered on 07/26/16 05:52; Admin Dose 40 MG; Start 07/01/16 at 06:00 Erythromycin Lactobionate/ Sodium Chloride (Erythromycin Lactobionate/NS) 100 ml @ 100 mls/hr Q6 IVPB Last administered on 07/26/16 11:29; Admin Dose 100 MLS/HR; Start 07/09/16 at 00:00 Albuterol (Ventolin Hfa) 2 puff Q4H PRN INH SHORTNESS OF BREATH Last administered on 07/20/16 08:56; Admin Dose 2 PUFF; Start 07/14/16 at 22:00 Ipratropium [place] (Atrovent Hfa) 4 puff Q4H PRN INH SHORTNESS OF BREATH Last administered on 07/20/16 08:55; Admin Dose 4 PUFF; Start 07/14/16 at 22:00 Metoclopramide HCl (Reglan) 5 mg Q8 IV Last administered on 07/26/16 13:18; Admin Dose 5 MG; Start 07/18/16 at 22:00 Diagnostic Test (Pha) 1 ea 1 ea Q4 XX Last administered on 07/26/16 13:26; Admin Dose 1 EA; Start 07/19/16 at 13:00 Total Parenteral Nutrition (Tpn) 1,000 ml @ 30 mls/hr Q24H IV Last administered on 07/25/16 16:13; Admin Dose 30 MLS/HR; Start 07/19/16 at 14:00 Morphine Sulfate 4 mg 4 mg Q4H PRN IV SEVERE PAIN LEVEL 7-10 Last administered on 07/26/16 15:56; Admin Dose 4 MG; Start 07/22/16 at 16:30 Linezolid 300 ml @ 300 mls/hr Q12 IVPB Last administered on 07/26/16 08:54; Admin Dose 300 MLS/HR; Start 07/24/16 at 21:00 Metronidazole 250 mg/N/A 50 ml @ 50 mls/hr Q8 IVPB Last administered on 13:18; Admin Dose 50 MLS/HR; Start 07/24/16 at 22:00 Trimethoprim/ Sulfamethoxazole/ Dextrose (Bactrim/D5W) 525 ml @ 350 mls/hr Q24H IVPB Last administered on 07/26/16 13:18; Admin Dose 350 MLS/HR; Start at 14:00 Insulin Aspart (Novolog Insulin Pen) NOVOLOG *MILD* ALGORITHM Q4 SC Last administered on 07/26/16 13:19; Admin Dose 1 UNIT; Start 07/25/16 at 17:00 Miscellaneous Information 1 ea NOTE XX ; Start 07/25/16 at 17:30 Glucose (Glutose) 15 gm Q15M PRN PO DECREASED GLUCOSE; Start 07/25/16 at 17:30 Glucose (Glutose) 22.5 gm Q15M PRN PO DECREASED GLUCOSE; Start 07/25/16 at 17: 30 Dextrose (D50w Syringe) 25 ml Q15M PRN IV DECREASED GLUCOSE; Start 07/25/16 at 17:30 Dextrose (D50w Syringe) 50 ml Q15M PRN IV DECREASED GLUCOSE; Start 07/25/16 at 17:30 Glucagon (Glucagen) 1 mg Q15M PRN IM DECREASED GLUCOSE; Start 07/25/16 at 17:30 Glucose (Glutose) 15 gm Q15M PRN BUCCAL DECREASED GLUCOSE; Start 07/25/16 at 17 :30 TIANNA SALINAS MD July 26, 2016 18:47
== END 2016-07-26 21:05 | disposition expired | DRG 853 ==
LOC: E/R 11:44 → TEL 15:42 → MS1 07-06 23:19 → TEL 07-12 09:43 → ICU 07-12 17:09 → MS2 07-23 12:20 → TEL 07-23 22:02
PROVIDERS: ADMIT Family Medicine; ATTEND Family Medicine
PROC: 0DJ08ZZ Inspection of Upper Intestinal Tract, Via Natural or Artificial Opening Endoscopic (ICD-10-PCS; 2016-06-30)
PROC: 0F9930Z Drainage of Common Bile Duct with Drainage Device, Percutaneous Approach (ICD-10-PCS; 2016-07-05)
PROC: BF10YZZ Fluoroscopy of Bile Ducts using Other Contrast (ICD-10-PCS; 2016-07-05)
PROC: 0FPB30Z Removal of Drainage Device from Hepatobiliary Duct, Percutaneous Approach (ICD-10-PCS; 2016-07-11)
PROC: 0F9930Z Drainage of Common Bile Duct with Drainage Device, Percutaneous Approach (ICD-10-PCS; 2016-07-11)
PROC: 0D968ZZ Drainage of Stomach, Via Natural or Artificial Opening Endoscopic (ICD-10-PCS; 2016-07-12)
PROC: 5A1955Z Respiratory Ventilation, Greater than 96 Consecutive Hours (ICD-10-PCS; 2016-07-12)
PROC: 0BH17EZ Insertion of Endotracheal Airway into Trachea, Via Natural or Artificial Opening (ICD-10-PCS; 2016-07-12)
PROC: 02H633Z Insertion of Infusion Device into Right Atrium, Percutaneous Approach (ICD-10-PCS; principal; 2016-07-14)
PROC: 5A1D60Z (ICD-10-PCS; 2016-07-14)
PROC: 30243N1 Transfusion of Nonautologous Red Blood Cells into Central Vein, Percutaneous Approach (ICD-10-PCS; 2016-07-14)
DX: A41.51 Sepsis due to Escherichia coli [E. coli] (principal); R65.21 Severe sepsis with septic shock; N17.0 Acute kidney failure with tubular necrosis; J96.01 Acute respiratory failure with hypoxia; J69.0 Pneumonitis due to inhalation of food and vomit; E87.2 Acidosis; C78.4 Secondary malignant neoplasm of small intestine; E88.89 Other specified metabolic disorders; K56.69 Other intestinal obstruction; E11.43 Type 2 diabetes mellitus with diabetic autonomic (poly)neuropathy; K31.84 Gastroparesis; K83.1 Obstruction of bile duct; C78.5 Secondary malignant neoplasm of large intestine and rectum; B37.49 Other urogenital candidiasis; N39.0 Urinary tract infection, site not specified; R71.0 Precipitous drop in hematocrit; C67.9 Malignant neoplasm of bladder, unspecified; B96.5 Pseudomonas (aeruginosa) (mallei) (pseudomallei) as the cause of diseases classified elsewhere; R63.4 Abnormal weight loss; E87.70 Fluid overload, unspecified; Z66 Do not resuscitate; D69.6 Thrombocytopenia, unspecified; E80.6 Other disorders of bilirubin metabolism; Z68.24 Body mass index [BMI] 24.0-24.9, adult
CPT/HCPCS: 20501; 31500; 36415; 36430; 36556; 36600; 49423; 71010; 71020; 74176; 74330; 75984; 76705; 76942; 80048; 80053; 80061; 80069; 80076; 80202; 81001; 81003; 82607; 82728; 82746; 82803; 82962; 83010; 83036; 83540; 83605; 83615; 83735; 84100; 84134; 84436; 84443; 84478; 84479; 84484; 85014; 85018; 85025; 85045; 85049; 85362; 85378; 85384; 85610; 85670; 85730; 86703; 86704; 86709; 86803; 86850; 86900; 86901; 86920; 87040; 87070; 87081; 87086; 87340; 90935; 93005; 93970; 93971; 94002; 94003; 94640; 94660; 94664; 94667; 94770; 96372; 96374; 96375; 96376; J1940; C1752; C9113; J0696; J1200; J1364; J1450; J1644; J1815; J2185; J2250; J2270; J2405; J2543; J2765; J2920; J3010; J3370; J3475; J3480; J7030; J7040; J7050; J7060; J7070; P9016; P9047; Q9967